=== PATIENT | male | born 1955 | race Caucasian/White ===

== ENCOUNTER 2016-10-18 12:48 | Inpatient (IN) | payer BC ==
[2016-10-18] MEDS ORDERED: FUROSEMIDE 10 MG/ML 10 ML VIAL IV STA (13:02)
[2016-10-18] MEDS ORDERED: ENALAPRILAT 1.25 MG/ML 1 ML VIAL IVP STA (13:02)
[2016-10-18] MEDS ORDERED: FUROSEMIDE 10 MG/ML 4 ML VIAL IV STA (13:03)
[2016-10-18] MEDS ORDERED: NITROGLYCERIN SL TABS 0.4 MG TAB SUBLINGUAL PRN (13:03)
[2016-10-18] MEDS ORDERED: NITROGLYCERIN OINT 1 INCH/GM PACKET TOPICAL STA (13:03)
--- NOTE | 2016-10-18 13:08 | ED ---
General Adult HPI - General Chief complaint: Shortness of Breath Stated complaint: CATRACHITO Time Seen by Provider: 10/18/16 12:56 Source: patient, family, RN notes reviewed Mode of arrival: wheelchair Limitations: physical limitation - History of Present Illness Initial comments: Patient is a pleasant 61-year-old male presenting to the emergency Department with difficulty breathing. Onset was just an hour ago. Patient denies any chest discomfort. Patient feels short of breath. No cough. Patient has had similar symptoms previously associated with congestive heart failure however not this sudden onset. Patient states legs are no more swollen than normal. no fevers. - Related Data Allergies Allergy/AdvReac Type Severity Reaction Status Date / Time No Known Allergies Allergy Verified 10/18/16 12:54 Review of Systems ROS Statement: Those systems with pertinent positive or pertinent negative responses have been documented in the HPI. ROS Other: All systems not noted in ROS Statement are negative. Constitutional: Denies: fever, chills Eyes: Denies: eye pain ENT: Denies: ear pain Respiratory: Reports: dyspnea Cardiovascular: Denies: chest pain Endocrine: Denies: polydipsia Gastrointestinal: Denies: abdominal pain Genitourinary: Denies: dysuria Musculoskeletal: Denies: back pain Skin: Denies: rash Neurological: Denies: headache Past Medical History Past Medical History: Diabetes Mellitus, Hyperlipidemia, Hypertension History of Any Multi-Drug Resistant Organisms: None Reported Past Surgical History: No Surgical Hx Reported Past Psychological History: No Psychological Hx Reported Smoking Status: Current some day smoker Past Alcohol Use History: None Reported Past Drug Use History: Unable to Obtain General Exam Limitations: physical limitation General appearance: alert, in distress, obese Head exam: Present: atraumatic Eye exam: Present: normal appearance, PERRL ENT exam: Present: normal oropharynx Neck exam: Present: normal inspection Respiratory exam: Present: respiratory distress, accessory muscle use, decreased breath sounds Cardiovascular Exam: Present: tachycardia GI/Abdominal exam: Present: soft. Absent: tenderness Extremities exam: Present: pedal edema. Absent: calf tenderness Neurological exam: Present: alert Psychiatric exam: Present: normal affect, normal mood Skin exam: Absent: rash Course Vital Signs 10/18/16 10/18/16 10/18/16 12:54 12:59 13:22 Pulse Rate 100 101 H 101 H Respiratory 36 H 36 H 22 Rate Blood Pressure 163/135 218/101 O2 Sat by Pulse 66 L 88 L 87 L Oximetry 10/18/16 10/18/16 10/18/16 13:32 13:45 14:06 Pulse Rate 100 97 95 Respiratory 22 22 22 Rate Blood Pressure 189/79 171/79 165/84 O2 Sat by Pulse 85 L 98 98 Oximetry - Reevaluation(s) Reevaluation #1: 10/18/16 13:21 Patient reevaluated and slightly improved with short-term BiPAP. Patient became nauseated and had to take the mask off. Patient provided Zofran and we attempted BiPAP. 10/18/16 14:34 Patient again reexamined and significantly improved. Patient resting comfortably on BiPAP. Patient and family are updated on results and plan. Case was discussed in detail with Dr. Sotelo who will admit for Dr. clinton. Case also discussed in detail with Dr. Gomez who will consult. EKG Findings - EKG Comments: EKG Findings:: Sinus rhythm at 100. LA 196. QRS 112. QT 352. QTC 454. Right axis. Normal QRS. Normal ST-T. Medical Decision Making - Lab Data Result diagrams: 10/18/16 13:07 10/18/16 13:07 Lab Results 10/18/16 10/18/16 10/18/16 Range/Units 13:07 13:07 13:07 WBC 22.0 H (3.8-10.6) k/uL RBC 5.56 (4.30-5.90) m/uL Hgb 16.3 (13.0-17.5) gm/dL Hct 49.3 (39.0-53.0) % MCV 88.6 (80.0-100.0) fL MCH 29.4 (25.0-35.0) pg MCHC 33.2 (31.0-37.0) g/dL RDW 14.6 (11.5-15.5) % Plt Count 291 (150-450) k/uL Neutrophils % 85 % Lymphocytes % 8 % Monocytes % 3 % Eosinophils % 2 % Basophils % 0 % Neutrophils # 18.7 H (1.3-7.7) k/uL Lymphocytes # 1.8 (1.0-4.8) k/uL Monocytes # 0.8 (0-1.0) k/uL Eosinophils # 0.5 (0-0.7) k/uL Basophils # 0.1 (0-0.2) k/uL PT (9.0-12.0) sec INR (<1.1) APTT (22.0-30.0) sec Sodium 145 (137-145) mmol/L Potassium 4.0 (3.5-5.1) mmol/L Chloride 101 (98-107) mmol/L Carbon Dioxide 29 (22-30) mmol/L Anion Gap 15 mmol/L BUN 17 (9-20) mg/dL Creatinine 0.97 (0.66-1.25) mg/dL Est GFR (MDRD) Af Amer >60 (>60 ml/min/1.73 sqM) Est GFR (MDRD) Non-Af >60 (>60 ml/min/1.73 sqM) Glucose 90 (74-99) mg/dL Calcium 9.7 (8.4-10.2) mg/dL Total Bilirubin 0.9 (0.2-1.3) mg/dL AST 18 (17-59) U/L ALT 30 (21-72) U/L Alkaline Phosphatase 85 (38-126) U/L Total Creatine Kinase 171 H (55-170) U/L CK-MB (CK-2) 2.7 H* (0.0-2.4) ng/mL CK-MB (CK-2) Rel Index 1.6 Troponin I 0.023 (0.000-0.034) ng/mL NT-Pro-B Natriuret Pep pg/mL Total Protein 8.2 (6.3-8.2) g/dL Albumin 4.8 (3.5-5.0) g/dL 10/18/16 10/18/16 Range/Units 13:07 13:07 WBC (3.8-10.6) k/uL RBC (4.30-5.90) m/uL Hgb (13.0-17.5) gm/dL Hct (39.0-53.0) % MCV (80.0-100.0) fL MCH (25.0-35.0) pg MCHC (31.0-37.0) g/dL RDW (11.5-15.5) % Plt Count (150-450) k/uL Neutrophils % % Lymphocytes % % Monocytes % % Eosinophils % % Basophils % % Neutrophils # (1.3-7.7) k/uL Lymphocytes # (1.0-4.8) k/uL Monocytes # (0-1.0) k/uL Eosinophils # (0-0.7) k/uL Basophils # (0-0.2) k/uL PT 10.4 (9.0-12.0) sec INR 1.0 (<1.1) APTT 23.4 (22.0-30.0) sec Sodium (137-145) mmol/L Potassium (3.5-5.1) mmol/L Chloride (98-107) mmol/L Carbon Dioxide (22-30) mmol/L Anion Gap mmol/L BUN (9-20) mg/dL Creatinine (0.66-1.25) mg/dL Est GFR (MDRD) Af Amer (>60 ml/min/1.73 sqM) Est GFR (MDRD) Non-Af (>60 ml/min/1.73 sqM) Glucose (74-99) mg/dL Calcium (8.4-10.2) mg/dL Total Bilirubin (0.2-1.3) mg/dL AST (17-59) U/L ALT (21-72) U/L Alkaline Phosphatase (38-126) U/L Total Creatine Kinase (55-170) U/L CK-MB (CK-2) (0.0-2.4) ng/mL CK-MB (CK-2) Rel Index Troponin I (0.000-0.034) ng/mL NT-Pro-B Natriuret Pep 554 pg/mL Total Protein (6.3-8.2) g/dL Albumin (3.5-5.0) g/dL - Radiology Data Radiology results: image reviewed (Chest x-ray shows cardiomegaly and interstitial prominence.) Critical Care Time Critical Care Time: Yes Total Critical Care Time: 44 Disposition Clinical Impression: Flash pulmonary edema, Acute respiratory failure Disposition: ADMITTED IP TO THIS [facility] Condition: Serious Referrals: Anna Rizvi MD [Primary Care Provider] - 1-2 days Time of Disposition: 14:34
[2016-10-18] MEDS ORDERED: ONDANSETRON 4 MG/2 ML VIAL IVP STA ×2 (13:21→15:19)
[2016-10-18 13:22] LABS: Basophils # (A) 0.1 k/uL (0-0.2); Basophils % (A) 0 %; CH 29.5; CHCM 33.4; Eosinophils # (A) 0.5 k/uL (0-0.7); Eosinophils % (A) 2 %; HCT 49.3 % (39.0-53.0); HDW 2.65; HGB 16.3 gm/dL (13.0-17.5); Luc # (Auto) 0.16; Luc % (Auto) 1; Lymphocytes # (A) 1.8 k/uL (1.0-4.8); Lymphocytes % (A) 8 %; MCH 29.4 pg (25.0-35.0); MCHC 33.2 g/dL (31.0-37.0); MCV 88.6 fL (80.0-100.0); Mean Platelet Volume 6.2; Monocytes # (A) 0.8 k/uL (0-1.0); Monocytes % (A) 3 %; Neutrophils # (A) 18.7 k/uL (1.3-7.7); Neutrophils % (A) 85 %; RBC 5.56 m/uL (4.30-5.90); RDW 14.6 % (11.5-15.5); WBC (Perox) 21.28
[2016-10-18] MEDS: NITROGLYCERIN SL TABS 0.4 MG TAB SUBLINGUAL STA ×2 (13:23→13:33)
--- NOTE | 2016-10-18 13:24 | XR ---
EXAMINATION TYPE: XR chest 1V portable DATE OF EXAM: 10/18/2016 1:15 PM COMPARISON: Prior chest x-ray 17 October 2012 HISTORY: Dyspnea TECHNIQUE: Single frontal view of the chest is obtained. FINDINGS: The heart is enlarged. Central vascularity and interstitium are prominent. There are overl norma cardiac leads. No pneumothorax or pleural effusion is identified. IMPRESSION: Correlate for pulmonary venous hypertension and interstitial edema. Follow-up recommende d.
[2016-10-18 13:33] LABS: ALT 30 U/L (21-72); AST 18 U/L (17-59); Alkaline Phosphatase 85 U/L (38-126); Anion Gap 15 mmol/L; Blood Urea Nitrogen 17 mg/dL (9-20); Calcium 9.7 mg/dL (8.4-10.2); Carbon Dioxide 29 mmol/L (22-30); Chloride 101 mmol/L (98-107); Glucose 90 mg/dL (74-99); Non-African American GFR(MDRD) >60 (>60 ml/min/1.73 sqM); Sodium 145 mmol/L (137-145); Total Bilirubin 0.9 mg/dL (0.2-1.3); Total Protein 8.2 g/dL (6.3-8.2)
[2016-10-18 13:34] LABS: Partial Thromboplastin Time 23.4 sec (22.0-30.0); Prothrombin Time 10.4 sec (9.0-12.0)
[2016-10-18 13:57] LABS: Troponin I 0.023 ng/mL (0.000-0.034)
[2016-10-18 14:15] LABS: Creatine Kinase MB 2.7 ng/mL (0.0-2.4)
[2016-10-18] MEDS ORDERED: ASPIRIN 325 MG TAB PO STA (14:35)
[2016-10-18] MEDS ORDERED: LEVOFLOXACIN 750MG-D5W PMX 750 MG in DEXTROSE/WATER 1 150ML.BAG IVPB STA (15:06)
[2016-10-18] MEDS: ACETAMINOPHEN TAB 500 MG TAB PO STA ×2 (15:13→15:24)
[2016-10-18 15:22] LABS: Appearance,Urine Clear (Clear); Bilirubin,Urine Negative (Negative); Glucose,Urine (UA) Negative (Negative); Ketones,Urine Negative (Negative); Leukocyte Esterase,Urine Negative (Negative); Nitrite,Urine Negative (Negative); Protein,Urine Negative (Negative); Specific Gravity,Urine 1.004 (1.001-1.035); UA Billing (MACRO vs. MICRO) CHEM; Urobilinogen,Urine <2.0 mg/dL (<2.0)
[2016-10-18] MEDS ORDERED: ACETAMINOPHEN IV (For NPO) 1,000 MG in EMPTY BAG 1 BAG IVPB STA (15:22)
[2016-10-18 16:10] LABS: ABG Base Excess 0.5 mmol/L; ABG HCO3 23 mmol/L (21-25); ABG PCO2 31 mmHg (35-45); ABG PO2 96 mmHg (83-108); ABG TCO2 24 mmol/L (19-24)
[2016-10-18 16:27] LABS: Glucose,Whole Blood 114 mg/dL (75-99)
[2016-10-18] MEDS ORDERED: LORazepam 2 MG/ML SYRINGE IV PRN (16:33)
[2016-10-18] MEDS ORDERED: IV VANCOMYCIN PER PHARMACY 1 EACH MISC MISCELLANE PRN (19:49)
[2016-10-18] MEDS ORDERED: SODIUM CHLORIDE 0.9% 500 ML IV ONE (19:50)
[2016-10-18] MEDS: PIPERACILLIN-TAZOBACTAM 3.375 GM in DEXTROSE/WATER 1 50ML.BAG IVPB SCH (20:00)
[2016-10-18] MEDS: ENALAPRILAT 1.25 MG/ML 1 ML VIAL IVP SCH ×2 (20:15→22:08)
[2016-10-18] MEDS: NITROGLYCERIN OINT 1 INCH/GM PACKET TOPICAL SCH (20:16)
[2016-10-18 21:09] LABS: Glucose,Whole Blood 106 mg/dL (75-99)
[2016-10-18] MEDS: FUROSEMIDE 10 MG/ML 4 ML VIAL IV SCH (22:08)
[2016-10-18] MEDS: VANCOMYCIN 2,250 MG in SODIUM CHLORIDE 0.9% 500 ML IVPB SCH (22:10)
[2016-10-18] MEDS ORDERED: NALOXONE 0.4 MG/ML 1 ML VIAL IV PRN (23:01)
[2016-10-18] MEDS ORDERED: FUROSEMIDE 10 MG/ML 2 ML VIAL IV ONE (23:06)
[2016-10-18] MEDS ORDERED: METOPROLOL TARTRATE 5 MG/5 ML VIAL IVP STA (23:31)
[2016-10-18] MEDS: SODIUM CHLORIDE 0.9% 1,000 ML IV SCH (23:40)
[2016-10-18] MEDS ORDERED: DILTIAZEM 125 MG in SODIUM CHLORIDE 0.9% 100 ML IV SCH (23:45)
[2016-10-18 23:55] LABS: CH 29.7; CHCM 34.1; HCT 45.5 % (39.0-53.0); HDW 2.66; HGB 15.5 gm/dL (13.0-17.5); Immature Gran Flag Moderate; MCH 29.9 pg (25.0-35.0); MCHC 34.2 g/dL (31.0-37.0); MCV 87.5 fL (80.0-100.0); Mean Platelet Volume 6.6; WBC (Perox) 29.93
[2016-10-18 23:57] LABS: WBC 29.8 k/uL (3.8-10.6)
[2016-10-19 00:02] LABS: INR 1.3 (<1.1); Partial Thromboplastin Time 25.6 sec (22.0-30.0); Prothrombin Time 12.5 sec (9.0-12.0)
[2016-10-19 00:15] LABS: ALT 28 U/L (21-72); AST 21 U/L (17-59); Alkaline Phosphatase 58 U/L (38-126); Anion Gap 15 mmol/L; Blood Urea Nitrogen 18 mg/dL (9-20); Carbon Dioxide 26 mmol/L (22-30); Chloride 100 mmol/L (98-107); Glucose 126 mg/dL (74-99); Non-African American GFR(MDRD) >60 (>60 ml/min/1.73 sqM); Potassium 3.4 mmol/L (3.5-5.1); Sodium 141 mmol/L (137-145); Total Bilirubin 1.2 mg/dL (0.2-1.3); Total Protein 6.5 g/dL (6.3-8.2)
[2016-10-19] MEDS: HEPARIN SODIUM,PORCINE 5,000 UNIT/ML 1 ML VIAL SQ SCH ×4 (00:25→23:33)
[2016-10-19] MEDS: NITROGLYCERIN OINT 1 INCH/GM PACKET TOPICAL SCH ×6 (00:27→20:40)
[2016-10-19 00:31] LABS: Add Differential Manual Differential
[2016-10-19 00:32] LABS: Manual Review Performed; Nucleated Red Blood Cells 0 /100 WBC (0-0); Total Cells Counted 100
[2016-10-19] MEDS: ACETAMINOPHEN IV (For NPO) 1,000 MG in EMPTY BAG 1 BAG IVPB PRN ×2 (00:34→17:31)
[2016-10-19] MEDS ORDERED: Potassium Replacement Protocol 1 EACH MISC MISCELLANE PRN ×3 (00:55→21:11)
[2016-10-19] MEDS: POTASSIUM CHLORIDE ER 20 MEQ TAB.ER PO SCH ×6 (01:20→23:32)
[2016-10-19] MEDS: PIPERACILLIN-TAZOBACTAM 3.375 GM in DEXTROSE/WATER 1 50ML.BAG IVPB SCH ×3 (01:22→16:56)
[2016-10-19] MEDS: ENALAPRILAT 1.25 MG/ML 1 ML VIAL IVP SCH ×2 (03:49→10:09)
[2016-10-19] MEDS: IBUPROFEN 800 MG TAB PO PRN (03:53)
[2016-10-19 04:58] LABS: Basophils % (A) 0 %; CH 29.6; Eosinophils # (A) 0.2 k/uL (0-0.7); Eosinophils % (A) 1 %; HCT 43.8 % (39.0-53.0); HDW 2.61; HGB 14.6 gm/dL (13.0-17.5); Luc % (Auto) 0; Lymphocytes # (A) 0.6 k/uL (1.0-4.8); Lymphocytes % (A) 2 %; MCH 29.2 pg (25.0-35.0); MCHC 33.4 g/dL (31.0-37.0); MCV 87.6 fL (80.0-100.0); Mean Platelet Volume 6.3; Monocytes # (A) 0.6 k/uL (0-1.0); Monocytes % (A) 2 %; Neutrophils # (A) 24.3 k/uL (1.3-7.7); Neutrophils % (A) 94 %; RDW 14.9 % (11.5-15.5)
[2016-10-19 05:04] LABS: WBC 25.9 k/uL (3.8-10.6)
[2016-10-19 05:08] LABS: Anion Gap 15 mmol/L; Blood Urea Nitrogen 20 mg/dL (9-20); Calcium 8.4 mg/dL (8.4-10.2); Carbon Dioxide 26 mmol/L (22-30); Chloride 98 mmol/L (98-107); Glucose 167 mg/dL (74-99); Magnesium 1.2 mg/dL (1.6-2.3); Non-African American GFR(MDRD) >60 (>60 ml/min/1.73 sqM); Phosphorous 4.3 mg/dL (2.5-4.5); Potassium 3.4 mmol/L (3.5-5.1); Sodium 139 mmol/L (137-145)
[2016-10-19] MEDS ORDERED: Magnesium Replacement Protocol 1 EACH MISC MISCELLANE PRN (05:37)
[2016-10-19] MEDS: MAGNESIUM SULFATE-D5W PMX 1 GM in DEXTROSE/WATER 1 100ML.BAG IVPB SCH ×3 (06:35→10:09)
[2016-10-19] MEDS: FUROSEMIDE 10 MG/ML 4 ML VIAL IV SCH ×3 (06:36→22:12)
[2016-10-19 07:20] LABS: Glucose,Whole Blood 190 mg/dL (75-99)
[2016-10-19] MEDS: IPRATROPIUM-ALBUTEROL 3 ML NEB INHALATION PRN ×4 (07:34→20:59)
[2016-10-19] MEDS: ASPIRIN 325 MG TAB PO SCH (08:00)
[2016-10-19] MEDS: VANCOMYCIN 2,250 MG in SODIUM CHLORIDE 0.9% 500 ML IVPB SCH (08:00)
[2016-10-19] MEDS: INSULIN LISPRO (humaLOG) 300 UNIT/3 ML VIAL SQ SCH ×6 (08:07→20:23)
[2016-10-19] MEDS ORDERED: PANTOPRAZOLE 40 MG/10 ML VIAL IV SCH (09:00)
--- NOTE | 2016-10-19 09:08 | XR ---
EXAMINATION TYPE: XR chest 1V DATE OF EXAM: 10/19/2016 6:25 AM COMPARISON: Prior chest x-ray 18 October 2016 HISTORY: Shortness of breath TECHNIQUE: Single frontal view of the chest is obtained. FINDINGS: There are overlying cardiac leads. Heart remains enlarged. There is improvement in aeratio n. No evident pneumothorax or sizable effusion. IMPRESSION: Improvement in patient's finding status.
[2016-10-19] MEDS: INSULIN GLARGINE 100 UNIT/ML 10 ML VIAL SQ SCH (10:09)
--- NOTE | 2016-10-19 11:46 | P.CNPUL ---
History of Present Illness Consult date: 10/19/16 Requesting physician: Kaye Smith Reason for consult: other (Acute pulmonary edema) Chief complaint: Shortness of breath and chills History of present illness: This is a 61-year-old white male with history of multiple medical problems including obstructive sleep apnea syndrome, valvular heart disease and he is usually followed by a design technology teacher out of [facility]. History of diabetes, hyperlipidemia, and obesity. Patient had previous remote history of congestive heart failure related to his valvular heart disease, however according to the patient's surgery was never an option for him as he was told by the design technology teacher. At any rate patient has chronic shortness of breath on exertion and he almost felt it is related to his obesity, deconditioning, and his underlying cardiomyopathy. Patient was supposed to go to dinner with his last night, and as he walked into the restaurant he started having constant shakes, possibly chills. He also developed shortness of breath, to the point it became so severe and he was brought into the ER. Upon arrival the chest x-ray showed evidence of pulmonary edema. Patient was also noted to have leukocytosis with WBC count as high as 29.8 he was also acidotic with anion gap of 15. Lactic acid was also noted to be 2.0. Troponins were also elevated 0.38 and 0.41 [id number]. ProBNP level was almost 3000. Patient was noted to be in moderate respiratory distress, and his chest x-ray clearly showed evidence of pulmonary edema, possibility of underlying left lower lobe pneumonia is not entirely ruled out, patient did receive initially a fluid bolus , but after reviewing the chest x-ray, I felt strongly that the findings are findings of congestive heart failure, patient was given diuretics. This morning his chest x-ray is significantly improved. Patient is feeling much better. His leukocytosis is improving, but continues to have WBC count of 25.9 compared to 29.8 on admission, his preliminary blood culture is positive showing gram-positive cocci in chains and clusters. Patient denies any previous history of endocarditis, no history of IV drug abuse, and no recent surgical procedures. Upon admission, patient was placed empirically on Levaquin and Zosyn and vancomycin. Review of Systems Constitutional: Chills, but no documented fever, no weight loss, no weakness. HEENT: Negative no blurred vision. No sore throat. No ear aches. Chest: Refer to HPI mostly symptoms of shortness of breath upon admission which has resolved over the last 12 hours. Cardiac: Shortness of breath and symptoms of pulmonary edema on presentation, known history of valvular heart disease but the patient could not elaborate further on the exact nature of his valvular heart disease. GI: Denies nausea vomiting abdominal pain melena or hematemesis. Genitourinary: No dysuria frequency or urgency. Hematologic: Negative Neurologic: No headache blurred vision or dizziness. Psychiatric: No history of anxiety or depression. No history of suicidal or homicidal thoughts. Endocrine: History of diabetes well-controlled. Patient is also known to have history of obesity and obstructive sleep apnea syndrome. Past Medical History Past Medical History: COPD, Diabetes Mellitus, Hyperlipidemia, Hypertension History of Any Multi-Drug Resistant Organisms: None Reported Past Surgical History: Appendectomy, Tonsillectomy Past Anesthesia/Blood Transfusion Reactions: No Reported Reaction Past Psychological History: No Psychological Hx Reported Smoking Status: Former smoker Past Alcohol Use History: None Reported Additional Past Alcohol Use History / Comment(s): cigar once or twice a year Past Drug Use History: None Reported Medications and Allergies Home Medications Medication Instructions Recorded Confirmed Type Aspirin EC [Ecotrin] 325 mg PO DAILY 10/18/16 10/18/16 History Atorvastatin [Lipitor] 40 mg PO DAILY 10/18/16 10/18/16 History Carvedilol [Coreg] 25 mg PO BID 10/18/16 10/18/16 History Clopidogrel Bisulfate [Plavix] 75 mg PO DAILY 10/18/16 10/18/16 History Furosemide [Lasix] 40 mg PO DAILY 10/18/16 10/18/16 History Insulin Glargine,Hum.rec.anlog 50 unit SQ HS 10/18/16 10/18/16 History [Lantus Solostar] Insulin Glargine,Hum.rec.anlog 55 unit SQ QAM 10/18/16 10/18/16 History [Lantus Solostar] Insulin Lispro [humaLOG Kwikpen] 20 unit SQ AC-TID 10/18/16 10/18/16 History Insulin Lispro [humaLOG Kwikpen] See Protocol SQ AC-TID 10/18/16 10/18/16 History Lisinopril-Hctz 20-12.5 mg 1 tab PO DAILY 10/18/16 10/18/16 History [Zestoretic 20-12.5] Loratadine [Claritin] 10 mg PO DAILY 10/18/16 10/18/16 History Potassium Chloride ER [K-Dur 20] 20 meq PO DAILY 10/18/16 10/18/16 History metFORMIN HCL 1,000 mg PO AC-BID 10/18/16 10/18/16 History Allergies Allergy/AdvReac Type Severity Reaction Status Date / Time No Known Allergies Allergy Verified 10/18/16 14:36 Physical Exam Vitals: Vital Signs Temp Pulse Pulse Resp BP BP Pulse Ox 10/19/16 11:29 87 10/19/16 11:22 92 10/19/16 11:18 81 10/19/16 11:00 68 22 120/65 95 10/19/16 10:00 65 18 117/70 96 10/19/16 09:00 65 13 106/56 97 10/19/16 08:00 98.3 F 64 17 105/66 98 10/19/16 07:50 75 10/19/16 07:36 76 20 10/19/16 07:00 63 21 115/55 98 10/19/16 06:30 65 18 111/56 99 10/19/16 06:00 66 18 100/58 97 10/19/16 05:30 68 21 101/56 99 10/19/16 05:00 98.6 F 70 18 112/62 98 10/19/16 04:30 70 20 108/64 98 10/19/16 04:00 100.3 F H 71 18 145/81 100 10/19/16 03:30 99.9 F H 72 20 114/66 98 10/19/16 03:00 68 20 103/57 98 10/19/16 02:30 72 20 117/67 98 10/19/16 02:00 99.7 F H 71 18 131/68 97 10/19/16 01:30 74 22 128/72 98 10/19/16 01:00 101.8 F H 77 21 150/81 98 10/19/16 00:45 78 18 168/84 97 10/19/16 00:30 102.1 F H 78 21 167/83 97 10/19/16 00:15 77 23 159/81 96 10/19/16 00:00 101.8 F H 78 22 149/79 96 10/18/16 23:45 75 19 140/77 95 10/18/16 23:30 165 H 24 107/74 96 10/18/16 23:15 90 27 H 156/82 97 10/18/16 23:00 102.1 F H 85 24 162/81 97 10/18/16 22:45 85 19 162/81 97 10/18/16 22:30 81 25 H 153/80 97 10/18/16 22:15 89 26 H 153/80 97 10/18/16 22:00 101.2 F H 90 26 H 161/86 97 10/18/16 21:45 90 22 161/86 96 10/18/16 21:30 90 23 139/68 97 10/18/16 21:15 100.9 F H 91 27 H 139/68 96 10/18/16 19:19 16 L 16 186/87 96 10/18/16 16:32 94 L 10/18/16 16:00 100.6 F H 95 24 186/87 96 10/18/16 14:59 101.2 F H 92 18 164/88 96 Intake and Output 10/18/16 10/19/16 10/19/16 22:59 06:59 14:59 Intake Total 659.662 9610 Output Total 600 2270 645 Balance -600 -1284.416 355 Intake: Intake, IV Titration 317.117 4576 Amount ACETAMINOPHEN IV (For NPO 100 ) 1,000 mg In Empty Bag 1 bag @ 400 mls/hr IVPB Q6HR PRN Rx#:[id number] Diltiazem 125 mg In 34.584 Sodium Chloride 0.9% 100 ml @ 10 MG/HR 10 mls/hr IV .[id number] DOUGLAS Rx#: [id number] Magnesium Sulfate-D5w Pmx 200 1 gm In Dextrose/Water 1 100ml.bag @ 100 mls/hr IVPB Q1H DOUGLAS Rx#: [id number] Piperacillin-Tazobactam 3 50.0 50 .375 gm In Dextrose/Water 1 50ml.bag @ 12.5 mls/hr IVPB Q8HR DOUGLAS Rx#: [id number] Sodium Chloride 0.9% 1, 300 250 000 ml @ 50 mls/hr IV . Q20H DOUGLAS Rx#:[id number] Vancomycin 2,250 mg In 501 500 Sodium Chloride 0.9% 500 ml @ 167 mls/hr IVPB Q12HR DOUGLAS Rx#:[id number] Output: Urine 600 2270 645 Other: Voiding Method Indwelling Catheter Weight 163.293 kg 164.5 kg Physical Exam: Revealed a 61-year-old white male in no distress significantly improved over the last 12 hours. HEENT:[Neck is supple.] [No neck masses.] [No thyromegaly.] [No JVD.] Narrow oropharynx, short obese neck is noted. Chest: [Minimal crackles at the bases mostly at the left base..] Cardiac Exam: [Distant S1 and S2, no S3 gallop, 2/6 systolic murmur throughout the precordium. Abdomen: [Obese, Soft, nontender, no megaly, no rebound, no guarding, normal bowel sounds.] Extremities: [No clubbing, bipedal edema is noted, however the right lower extremity seems to be a bit more swollen and edematous compared to the left lower extremity, areas of cellulitis suspected in the right lower extremity also. Neurological Exam: [No focal neurologic deficit.] Results - Laboratory Findings CBC and BMP: 10/19/16 04:34 10/19/16 04:34 ABG ABG pH 7.50 (7.35-7.45) H 10/18/16 16:01 ABG pCO2 31 mmHg (35-45) L 10/18/16 16:01 ABG pO2 96 mmHg (83-108) 10/18/16 16:01 ABG O2 Saturation 98.0 % (94-97) H 10/18/16 16:01 PT/INR, D-dimer PT 12.5 sec (9.0-12.0) H 10/18/16 23:35 INR 1.3 (<1.1) 10/18/16 23:35 Abnormal lab findings: Abnormal Labs 10/18/16 10/18/16 10/18/16 16:01 16:07 16:59 WBC Neutrophils # Neutrophils # (Manual) Lymphocytes # Lymphocytes # (Manual) PT ABG pH 7.50 H ABG pCO2 31 L ABG O2 Saturation 98.0 H Potassium Glucose POC Glucose (mg/dL) 114 H Plasma Lactic Acid Alan 2.3 H* Magnesium Troponin I 04/15/17 04/15/17 04/15/17 20:35 21:08 23:35 WBC Neutrophils # Neutrophils # (Manual) Lymphocytes # Lymphocytes # (Manual) PT ABG pH ABG pCO2 ABG O2 Saturation Potassium Glucose POC Glucose (mg/dL) 106 H Plasma Lactic Acid Alan Magnesium Troponin I 0.382 H* 0.413 H* 10/18/16 10/18/16 10/18/16 23:35 23:35 23:35 WBC 29.8 H* Neutrophils # Neutrophils # (Manual) 28.3 H Lymphocytes # Lymphocytes # (Manual) 0.6 L PT 12.5 H ABG pH ABG pCO2 ABG O2 Saturation Potassium 3.4 L Glucose 126 H POC Glucose (mg/dL) Plasma Lactic Acid Alan Magnesium Troponin I 10/19/16 10/19/16 10/19/16 04:34 04:34 07:18 WBC 25.9 H* Neutrophils # 24.3 H Neutrophils # (Manual) Lymphocytes # 0.6 L Lymphocytes # (Manual) PT ABG pH ABG pCO2 ABG O2 Saturation Potassium 3.4 L Glucose 167 H POC Glucose (mg/dL) 190 H Plasma Lactic Acid Alan Magnesium 1.2 L Troponin I - Diagnostic Findings Chest x-ray: image reviewed (Initial x-ray on admission showed evidence of pulmonary edema. However follow-up chest x-ray this morning showed significant improvement minimal hazy opacity noted in the left lower lobe.) Assessment and Plan Plan: Impression: 1 acute pulmonary edema, and acute hypoxic respiratory failure requiring BiPAP on admission most likely secondary to underlying cardiomyopathy and valvular heart disease. 2 acute sepsis with bacteremia, exact source is not clear at this point, however potential sources could be lung or cellulitis of the right lower extremity. Final culture is pending in the meantime the patient is well covered with Levaquin and Zosyn and vancomycin. 3 possible endocarditis, patient will have an echocardiogram, and if he continues to have positive blood cultures he will need to have a LARISA. 4 history of multiple comorbidities including obstructive sleep apnea syndrome, morbid obesity, type 2 diabetes, hypertension, hyperlipidemia, Recommendation: Continue present course of diuretics, empiric antibiotics, bronchodilators, BiPAP at bedside, repeat blood cultures, check echocardiogram and strongly consider LARISA. Patient is yet to be seen by cardiology on consultation today. We will keep the patient in the intensive care unit, and we 'll continue to follow. Time with Patient: Greater than 30
[2016-10-19 11:59] LABS: Hemoglobin A1C 8.2 % (4.2-6.1)
[2016-10-19 12:08] LABS: Glucose,Whole Blood 305 mg/dL (75-99)
--- NOTE | 2016-10-19 12:34 | P.CRDCN ---
History of Present Illness Chief complaint: symptomatic svt, fever History of present illness: 61-year-old obese male who presented to the emergency room with sudden onset of shortness of breath and being very dizzy and feeling very poorly. His legs were swollen chronically He may have felt some fluttering in the chest but is not sure. He felt weak and lightheaded and felt as if he was shaking His twelve-lead ECG showed supraventricular tachycardia at greater than 160 beats a minute, narrow QRS and he was treated with IV medications for this possibly IV Cardizem with sudden a proper termination. The ECG is not scanned in as yet but is in his paper chart Upon admission he was complaining of shakes and possible chills and was extremely short of breath and was considered to be in pulmonary edema. White count was elevated to 29.8 thousand, pulmonary blood cultures show gram- positive cocci in chains and clusters Past history of diabetes, morbid obesity, dyslipidemia, mild coronary artery disease documented by coronary angiography and valvular heart disease with possible cardiomyopathy Review of systems: No fever chills or rigors, no cough, phlegm or expectoration , no nausea, vomiting or diarrhea, no hematuria, dysuria, no musculoskeletal complaints, no strokes or seizures, no skin lesions. He felt shaky and very short of breath Medications are reviewed and are documented in the chart NO KNOWN DRUG ALLERGIES Labs are reviewed Preliminary blood cultures show gram-positive cocci in chains Elevated white count of 29.8 thousand followed by 25.9 thousand, normal hemoglobin elevated neutrophil count Normal electrolytes Troponins, normal TSH normal cortisol Impression Symptomatic supraventricular tachycardia Elevated white count and a febrile state of 101.8F and pulmonary blood cultures are positive History of cardio myopathy and valvular heart disease Adult-onset diabetes Hypertension Dyslipidemia Suggest Records from his veterinary surgeon, his coronary angiogram that was done about a year back, 2-D echo and Doppler study Workup for infection 2-D echo and Doppler study in hospital I did discuss SVT ablation with him but I would hold off until the infection issue is completely resolved and the final blood cultures are available I will review his records and then speak to the patient Once his infection issues are resolved he should have an SVT ablation because he was extremely symptomatic from this. It is quite likely that I may have to use general anesthesia for this condition and therefore I would like to see his LV function and review his old records for his veterinary surgeon Past Medical History Past Medical History: COPD, Diabetes Mellitus, Hyperlipidemia, Hypertension History of Any Multi-Drug Resistant Organisms: None Reported Past Surgical History: Appendectomy, Tonsillectomy Past Anesthesia/Blood Transfusion Reactions: No Reported Reaction Past Psychological History: No Psychological Hx Reported Smoking Status: Former smoker Past Alcohol Use History: None Reported Additional Past Alcohol Use History / Comment(s): cigar once or twice a year Past Drug Use History: None Reported Medications and Allergies Home Medications Medication Instructions Recorded Confirmed Type Aspirin EC [Ecotrin] 325 mg PO DAILY 10/18/16 10/18/16 History Atorvastatin [Lipitor] 40 mg PO DAILY 10/18/16 10/18/16 History Carvedilol [Coreg] 25 mg PO BID 10/18/16 10/18/16 History Clopidogrel Bisulfate [Plavix] 75 mg PO DAILY 10/18/16 10/18/16 History Furosemide [Lasix] 40 mg PO DAILY 10/18/16 10/18/16 History Insulin Glargine,Hum.rec.anlog 50 unit SQ HS 10/18/16 10/18/16 History [Lantus Solostar] Insulin Glargine,Hum.rec.anlog 55 unit SQ QAM 10/18/16 10/18/16 History [Lantus Solostar] Insulin Lispro [humaLOG Kwikpen] 20 unit SQ AC-TID 10/18/16 10/18/16 History Insulin Lispro [humaLOG Kwikpen] See Protocol SQ AC-TID 10/18/16 10/18/16 History Lisinopril-Hctz 20-12.5 mg 1 tab PO DAILY 10/18/16 10/18/16 History [Zestoretic 20-12.5] Loratadine [Claritin] 10 mg PO DAILY 10/18/16 10/18/16 History Potassium Chloride ER [K-Dur 20] 20 meq PO DAILY 10/18/16 10/18/16 History metFORMIN HCL 1,000 mg PO AC-BID 10/18/16 10/18/16 History Allergies Allergy/AdvReac Type Severity Reaction Status Date / Time No Known Allergies Allergy Verified 10/18/16 14:36 Physical Exam Vitals: Vital Signs Temp Pulse Pulse Resp BP BP Pulse Ox 10/19/16 11:29 87 10/19/16 11:22 92 10/19/16 11:18 81 10/19/16 11:00 68 22 120/65 95 10/19/16 10:00 65 18 117/70 96 10/19/16 09:00 65 13 106/56 97 10/19/16 08:00 98.3 F 64 17 105/66 98 10/19/16 07:50 75 10/19/16 07:36 76 20 10/19/16 07:00 63 21 115/55 98 10/19/16 06:30 65 18 111/56 99 10/19/16 06:00 66 18 100/58 97 10/19/16 05:30 68 21 101/56 99 10/19/16 05:00 98.6 F 70 18 112/62 98 10/19/16 04:30 70 20 108/64 98 10/19/16 04:00 100.3 F H 71 18 145/81 100 10/19/16 03:30 99.9 F H 72 20 114/66 98 10/19/16 03:00 68 20 103/57 98 10/19/16 02:30 72 20 117/67 98 10/19/16 02:00 99.7 F H 71 18 131/68 97 10/19/16 01:30 74 22 128/72 98 10/19/16 01:00 101.8 F H 77 21 150/81 98 10/19/16 00:45 78 18 168/84 97 10/19/16 00:30 102.1 F H 78 21 167/83 97 10/19/16 00:15 77 23 159/81 96 10/19/16 00:00 101.8 F H 78 22 149/79 96 10/18/16 23:45 75 19 140/77 95 10/18/16 23:30 165 H 24 107/74 96 10/18/16 23:15 90 27 H 156/82 97 10/18/16 23:00 102.1 F H 85 24 162/81 97 10/18/16 22:45 85 19 162/81 97 10/18/16 22:30 81 25 H 153/80 97 10/18/16 22:15 89 26 H 153/80 97 10/18/16 22:00 101.2 F H 90 26 H 161/86 97 10/18/16 21:45 90 22 161/86 96 10/18/16 21:30 90 23 139/68 97 10/18/16 21:15 100.9 F H 91 27 H 139/68 96 10/18/16 19:19 16 L 16 186/87 96 10/18/16 16:32 94 L 10/18/16 16:00 100.6 F H 95 24 186/87 96 10/18/16 14:59 101.2 F H 92 18 164/88 96 Intake and Output 10/18/16 10/19/16 10/19/16 22:59 06:59 14:59 Intake Total 684.267 8956 Output Total 600 2270 645 Balance -600 -1284.416 355 Intake: Intake, IV Titration 853.420 1514 Amount ACETAMINOPHEN IV (For NPO 100 ) 1,000 mg In Empty Bag 1 bag @ 400 mls/hr IVPB Q6HR PRN Rx#:[id number] Diltiazem 125 mg In 34.584 Sodium Chloride 0.9% 100 ml @ 10 MG/HR 10 mls/hr IV .[id number] [facility] Rx#: [id number] Magnesium Sulfate-D5w Pmx 200 1 gm In Dextrose/Water 1 100ml.bag @ 100 mls/hr IVPB Q1H [facility] Rx#: [id number] Piperacillin-Tazobactam 3 50.0 50 .375 gm In Dextrose/Water 1 50ml.bag @ 12.5 mls/hr IVPB Q8HR [facility] Rx#: [id number] Sodium Chloride 0.9% 1, 300 250 000 ml @ 50 mls/hr IV . Q20H [facility] Rx#:[id number] Vancomycin 2,250 mg In 501 500 Sodium Chloride 0.9% 500 ml @ 167 mls/hr IVPB Q12HR [facility] Rx#:[id number] Output: Urine 600 2270 645 Other: Voiding Method Indwelling Catheter Weight 163.293 kg 164.5 kg Results 10/19/16 04:34 10/19/16 04:34 Cardiac Enzymes 10/18/16 10/18/16 10/18/16 Range/Units 20:35 23:35 23:35 AST 21 (17-59) U/L Troponin I 0.382 H* 0.413 H* (0.000-0.034) ng/mL Coagulation 10/18/16 Range/Units 23:35 PT 12.5 H (9.0-12.0) sec APTT 25.6 (22.0-30.0) sec CBC 10/18/16 10/19/16 Range/Units 23:35 04:34 WBC 29.8 H* 25.9 H* (3.8-10.6) k/uL RBC 5.20 5.00 (4.30-5.90) m/uL Hgb 15.5 14.6 (13.0-17.5) gm/dL Hct 45.5 43.8 (39.0-53.0) % Plt Count 224 191 (150-450) k/uL Comprehensive Metabolic Panel 10/18/16 10/19/16 Range/Units 23:35 04:34 Sodium 141 139 (137-145) mmol/L Potassium 3.4 L 3.4 L (3.5-5.1) mmol/L Chloride 100 98 (98-107) mmol/L Carbon Dioxide 26 26 (22-30) mmol/L BUN 18 20 (9-20) mg/dL Creatinine 1.10 1.20 (0.66-1.25) mg/dL Glucose 126 H 167 H (74-99) mg/dL Calcium 9.0 8.4 (8.4-10.2) mg/dL AST 21 (17-59) U/L ALT 28 (21-72) U/L Alkaline Phosphatase 58 (38-126) U/L Total Protein 6.5 (6.3-8.2) g/dL Albumin 3.8 (3.5-5.0) g/dL Current Medications Generic Name Dose Route Start Last Admin Trade Name Freq PRN Reason Stop Dose Admin Albuterol/Ipratropium 3 ml 10/18/16 23:08 10/19/16 11:14 Duoneb 0.5 Mg-3 Mg/3 Ml Soln INHALATION 3 ml RT-QID PRN Administration Shortness Of Breath Or Wheezing Aspirin 325 mg 10/19/16 09:00 10/19/16 08:00 Aspirin PO 325 mg DAILY [facility] Administration Carvedilol 25 mg 10/19/16 17:30 Coreg PO 10/19/16 20:00 BID-W/MEALS [facility] Furosemide 40 mg 10/18/16 22:00 10/19/16 06:36 Lasix IV 40 mg Q8H [facility] Administration Lisinopril/HCTZ 1 each 10/20/16 09:00 Zestoretic 20-12.5 PO DAILY [facility] Heparin Sodium (Porcine) 5,000 unit 10/19/16 00:00 10/19/16 08:00 Heparin SQ 5,000 unit Q8HR [facility] Administration Levofloxacin 750 mg/ IV 150 mls @ 100 mls/hr 10/19/16 16:00 Solution IVPB Q24H [facility] Piperacillin/Tazobactam/ 50 mls @ 12.5 mls/hr 10/18/16 16:45 10/19/16 08:28 Dextrose 3.375 gm/ IV Solution IVPB 12.5 mls/hr Q8HR [facility] Administration Vancomycin HCl 2,250 mg/ 500 mls @ 167 mls/hr 10/18/16 21:00 10/19/16 08:00 Sodium Chloride IVPB 167 mls/hr Q12HR [facility] Administration Acetaminophen 1,000 mg/ IV 100 mls @ 400 mls/hr 10/18/16 23:01 10/19/16 00:34 Solution IVPB 10/19/16 23:01 400 mls/hr Q6HR PRN Administration Fever Sodium Chloride 1,000 mls @ 50 mls/hr 10/18/16 23:15 10/18/16 23:40 Saline 0.9% IV 50 mls/hr .Q20H [facility] Administration Ibuprofen 800 mg 10/18/16 23:10 10/19/16 03:53 Motrin PO 800 mg QID PRN Administration Fever and/ or Pain Insulin Glargine 15 unit 10/19/16 21:00 Lantus SQ HS [facility] Insulin Glargine 30 unit 10/19/16 09:45 10/19/16 10:09 Lantus SQ 30 unit DAILY [facility] Administration Insulin Human Lispro 0 unit 10/19/16 07:30 10/19/16 08:07 Humalog SQ 5 unit ACHS [facility] Administration Protocol Insulin Human Lispro 10 unit 10/19/16 12:30 Humalog SQ AC-TID [facility] Lorazepam 0.5 mg 10/18/16 16:33 10/18/16 17:17 Ativan IV 0.5 mg Q4HR PRN Administration Anxiety Miscellaneous Information 1 each 10/19/16 05:36 Potassium Per Protocol MISCELLANE DAILY PRN Per Protocol Protocol Miscellaneous Information 1 each 10/19/16 05:37 Magnesium Per Protocol MISCELLANE DAILY PRN Per Protocol Protocol Miscellaneous Information 0 each 10/20/16 08:30 Vancomycin Trough Due MISCELLANE 10/20/16 08:31 DIRECTED ONE Naloxone HCl 0.2 mg 10/18/16 23:01 Narcan IV Q2M PRN Opioid Reversal Nitroglycerin 0.4 mg 10/18/16 13:03 10/18/16 13:04 Nitrostat SUBLINGUAL 0.4 mg ONCE PRN Administration Chest Pain Nitroglycerin 1 inch 10/18/16 18:00 10/19/16 08:02 Nitro-Bid Oint TOPICAL 1 inch QID [facility] Administration Pantoprazole Sodium 40 mg 10/19/16 09:00 10/19/16 08:00 Protonix IV 40 mg DAILY [facility] Administration Sodium Chloride 10 ml 10/18/16 21:00 10/19/16 08:02 Saline Flush IV 10 ml BID [facility] Administration Intake and Output 10/18/16 10/19/16 10/19/16 22:59 06:59 14:59 Intake Total 035.721 8016 Output Total 600 2270 645 Balance -600 -1284.416 355 Intake: Intake, IV Titration 891.869 1481 Amount ACETAMINOPHEN IV (For NPO 100 ) 1,000 mg In Empty Bag 1 bag @ 400 mls/hr IVPB Q6HR PRN Rx#:[id number] Diltiazem 125 mg In 34.584 Sodium Chloride 0.9% 100 ml @ 10 MG/HR 10 mls/hr IV .[id number] [facility] Rx#: [id number] Magnesium Sulfate-D5w Pmx 200 1 gm In Dextrose/Water 1 100ml.bag @ 100 mls/hr IVPB Q1H [facility] Rx#: [id number] Piperacillin-Tazobactam 3 50.0 50 .375 gm In Dextrose/Water 1 50ml.bag @ 12.5 mls/hr IVPB Q8HR [facility] Rx#: [id number] Sodium Chloride 0.9% 1, 300 250 000 ml @ 50 mls/hr IV . Q20H [facility] Rx#:[id number] Vancomycin 2,250 mg In 501 500 Sodium Chloride 0.9% 500 ml @ 167 mls/hr IVPB Q12HR [facility] Rx#:[id number] Output: Urine 600 2270 645 Other: Voiding Method Indwelling Catheter Weight 163.293 kg 164.5 kg 10/19/16 04:34 10/19/16 04:34
--- NOTE | 2016-10-19 12:55 | P.HPIM ---
History of Present Illness H&P Date: 10/19/16 Chief Complaint: Shortness of breath This is a 61-year-old gentleman with a very complex past medical history noted below significant for morbid obesity, type 2 diabetes mellitus, and obstructive sleep apnea who presented to the hospital with worsening shortness of breath. Patient said that he shortness of breath started a few days ago but is been getting progressively worse. He is known to have underlying heart failure with chronic venous insufficiency and chronic edema. He said for the past few days he was unable to walk around without being short of breath. Yesterday he was having some chills and cough that was initially nonproductive. He presented to the emergency room was found to be hypoxic and chest x-ray showed evidence of pulmonary edema. Patient was started on IV Lasix and was admitted to the hospital. Soon after admission he was found to be tachycardic with a heart rate of 170s. Patient was noted to be in SVT. He received 1 dose of IV metoprolol. He was transferred to the intensive care unit. He remained hemodynamically stable. He was also noted to be septic with initial blood culture positive for gram-positive cocci in chains. Patient is currently on broad-spectrum antibiotic. He appeared more comfortable today. He denies shortness of breath. He was very confused last night according to his that today he is coherent and alert and awake 3. Review of Systems Review of system: 14 points review of systems were obtained and were negative except to what were mentioned in the HPI. Past Medical History Past Medical History: COPD, Diabetes Mellitus, Hyperlipidemia, Hypertension History of Any Multi-Drug Resistant Organisms: None Reported Past Surgical History: Appendectomy, Tonsillectomy Past Anesthesia/Blood Transfusion Reactions: No Reported Reaction Past Psychological History: No Psychological Hx Reported Smoking Status: Former smoker Past Alcohol Use History: None Reported Additional Past Alcohol Use History / Comment(s): cigar once or twice a year Past Drug Use History: None Reported Medications and Allergies Home Medications Medication Instructions Recorded Confirmed Type Aspirin EC [Ecotrin] 325 mg PO DAILY 10/18/16 10/18/16 History Atorvastatin [Lipitor] 40 mg PO DAILY 10/18/16 10/18/16 History Carvedilol [Coreg] 25 mg PO BID 10/18/16 10/18/16 History Clopidogrel Bisulfate [Plavix] 75 mg PO DAILY 10/18/16 10/18/16 History Furosemide [Lasix] 40 mg PO DAILY 10/18/16 10/18/16 History Insulin Glargine,Hum.rec.anlog 50 unit SQ HS 10/18/16 10/18/16 History [Lantus Solostar] Insulin Glargine,Hum.rec.anlog 55 unit SQ QAM 10/18/16 10/18/16 History [Lantus Solostar] Insulin Lispro [humaLOG Kwikpen] 20 unit SQ AC-TID 10/18/16 10/18/16 History Insulin Lispro [humaLOG Kwikpen] See Protocol SQ AC-TID 10/18/16 10/18/16 History Lisinopril-Hctz 20-12.5 mg 1 tab PO DAILY 10/18/16 10/18/16 History [Zestoretic 20-12.5] Loratadine [Claritin] 10 mg PO DAILY 10/18/16 10/18/16 History Potassium Chloride ER [K-Dur 20] 20 meq PO DAILY 10/18/16 10/18/16 History metFORMIN HCL 1,000 mg PO AC-BID 10/18/16 10/18/16 History Allergies Allergy/AdvReac Type Severity Reaction Status Date / Time No Known Allergies Allergy Verified 10/18/16 14:36 Physical Exam Vitals: Vital Signs Temp Pulse Pulse Resp BP BP Pulse Ox 10/19/16 11:29 87 10/19/16 11:22 92 10/19/16 11:18 81 10/19/16 11:00 68 22 120/65 95 10/19/16 10:00 65 18 117/70 96 10/19/16 09:00 65 13 106/56 97 10/19/16 08:00 98.3 F 64 17 105/66 98 10/19/16 07:50 75 10/19/16 07:36 76 20 10/19/16 07:00 63 21 115/55 98 10/19/16 06:30 65 18 111/56 99 10/19/16 06:00 66 18 100/58 97 10/19/16 05:30 68 21 101/56 99 10/19/16 05:00 98.6 F 70 18 112/62 98 10/19/16 04:30 70 20 108/64 98 10/19/16 04:00 100.3 F H 71 18 145/81 100 10/19/16 03:30 99.9 F H 72 20 114/66 98 10/19/16 03:00 68 20 103/57 98 10/19/16 02:30 72 20 117/67 98 10/19/16 02:00 99.7 F H 71 18 131/68 97 10/19/16 01:30 74 22 128/72 98 10/19/16 01:00 101.8 F H 77 21 150/81 98 10/19/16 00:45 78 18 168/84 97 10/19/16 00:30 102.1 F H 78 21 167/83 97 10/19/16 00:15 77 23 159/81 96 10/19/16 00:00 101.8 F H 78 22 149/79 96 10/18/16 23:45 75 19 140/77 95 10/18/16 23:30 165 H 24 107/74 96 10/18/16 23:15 90 27 H 156/82 97 10/18/16 23:00 102.1 F H 85 24 162/81 97 10/18/16 22:45 85 19 162/81 97 10/18/16 22:30 81 25 H 153/80 97 10/18/16 22:15 89 26 H 153/80 97 10/18/16 22:00 101.2 F H 90 26 H 161/86 97 10/18/16 21:45 90 22 161/86 96 10/18/16 21:30 90 23 139/68 97 10/18/16 21:15 100.9 F H 91 27 H 139/68 96 10/18/16 19:19 16 L 16 186/87 96 10/18/16 16:32 94 L 10/18/16 16:00 100.6 F H 95 24 186/87 96 10/18/16 14:59 101.2 F H 92 18 164/88 96 Intake and Output 10/18/16 10/19/16 10/19/16 22:59 06:59 14:59 Intake Total 632.024 3292 Output Total 600 2270 645 Balance -600 -1284.416 355 Intake: Intake, IV Titration 132.292 9184 Amount ACETAMINOPHEN IV (For NPO 100 ) 1,000 mg In Empty Bag 1 bag @ 400 mls/hr IVPB Q6HR PRN Rx#:[id number] Diltiazem 125 mg In 34.584 Sodium Chloride 0.9% 100 ml @ 10 MG/HR 10 mls/hr IV .[id number] [facility] Rx#: [id number] Magnesium Sulfate-D5w Pmx 200 1 gm In Dextrose/Water 1 100ml.bag @ 100 mls/hr IVPB Q1H [facility] Rx#: [id number] Piperacillin-Tazobactam 3 50.0 50 .375 gm In Dextrose/Water 1 50ml.bag @ 12.5 mls/hr IVPB Q8HR [facility] Rx#: [id number] Sodium Chloride 0.9% 1, 300 250 000 ml @ 50 mls/hr IV . Q20H [facility] Rx#:[id number] Vancomycin 2,250 mg In 501 500 Sodium Chloride 0.9% 500 ml @ 167 mls/hr IVPB Q12HR [facility] Rx#:[id number] Output: Urine 600 2270 645 Other: Voiding Method Indwelling Catheter Weight 163.293 kg 164.5 kg General: The patient is awake and alert, in no distress, and does not appear acutely ill. Eye: extra-ocular movements are intact; there is normal conjunctiva bilaterally. . Neck: The neck is supple, there is no tenderness or JVD. Cardiovascular: Normal S1-S2, no S3-S4, no murmurs. Respiratory: Lungs with bibasilar crackles Gastrointestinal: Abdomen is soft, nontender, Musculoskeletal: There is +2-3 pitting edema up to the midshin with chronic venous insufficiency skin changes Neurological: There are no obvious motor or sensory deficits. Speech is normal. Skin: Skin is warm and dry and no rashes or lesions are noted. Results CBC & Chem 7: 10/19/16 04:34 10/19/16 04:34 Labs: Abnormal Lab Results - Last 24 Hours (Table) 10/18/16 10/18/16 10/18/16 Range/Units 16:01 16:07 16:59 WBC (3.8-10.6) k/uL Neutrophils # (1.3-7.7) k/uL Neutrophils # (Manual) (1.3-7.7) k/uL Lymphocytes # (1.0-4.8) k/uL Lymphocytes # (Manual) (1.0-4.8) k/uL PT (9.0-12.0) sec ABG pH 7.50 H (7.35-7.45) ABG pCO2 31 L (35-45) mmHg ABG O2 Saturation 98.0 H (94-97) % Potassium (3.5-5.1) mmol/L Glucose (74-99) mg/dL POC Glucose (mg/dL) 114 H (75-99) mg/dL Hemoglobin A1c (4.2-6.1) % Plasma Lactic Acid Alan 2.3 H* (0.7-2.0) mmol/L Magnesium (1.6-2.3) mg/dL Troponin I (0.000-0.034) ng/mL 10/18/16 10/18/16 10/18/16 Range/Units 20:35 21:08 23:35 WBC (3.8-10.6) k/uL Neutrophils # (1.3-7.7) k/uL Neutrophils # (Manual) (1.3-7.7) k/uL Lymphocytes # (1.0-4.8) k/uL Lymphocytes # (Manual) (1.0-4.8) k/uL PT (9.0-12.0) sec ABG pH (7.35-7.45) ABG pCO2 (35-45) mmHg ABG O2 Saturation (94-97) % Potassium (3.5-5.1) mmol/L Glucose (74-99) mg/dL POC Glucose (mg/dL) 106 H (75-99) mg/dL Hemoglobin A1c (4.2-6.1) % Plasma Lactic Acid Alan (0.7-2.0) mmol/L Magnesium (1.6-2.3) mg/dL Troponin I 0.382 H* 0.413 H* (0.000-0.034) ng/mL 10/18/16 10/18/16 10/18/16 Range/Units 23:35 23:35 23:35 WBC 29.8 H* (3.8-10.6) k/uL Neutrophils # (1.3-7.7) k/uL Neutrophils # (Manual) 28.3 H (1.3-7.7) k/uL Lymphocytes # (1.0-4.8) k/uL Lymphocytes # (Manual) 0.6 L (1.0-4.8) k/uL PT 12.5 H (9.0-12.0) sec ABG pH (7.35-7.45) ABG pCO2 (35-45) mmHg ABG O2 Saturation (94-97) % Potassium 3.4 L (3.5-5.1) mmol/L Glucose 126 H (74-99) mg/dL POC Glucose (mg/dL) (75-99) mg/dL Hemoglobin A1c (4.2-6.1) % Plasma Lactic Acid Alan (0.7-2.0) mmol/L Magnesium (1.6-2.3) mg/dL Troponin I (0.000-0.034) ng/mL 10/19/16 10/19/16 10/19/16 Range/Units 04:34 04:34 04:34 WBC 25.9 H* (3.8-10.6) k/uL Neutrophils # 24.3 H (1.3-7.7) k/uL Neutrophils # (Manual) (1.3-7.7) k/uL Lymphocytes # 0.6 L (1.0-4.8) k/uL Lymphocytes # (Manual) (1.0-4.8) k/uL PT (9.0-12.0) sec ABG pH (7.35-7.45) ABG pCO2 (35-45) mmHg ABG O2 Saturation (94-97) % Potassium 3.4 L (3.5-5.1) mmol/L Glucose 167 H (74-99) mg/dL POC Glucose (mg/dL) (75-99) mg/dL Hemoglobin A1c 8.2 H (4.2-6.1) % Plasma Lactic Acid Alan (0.7-2.0) mmol/L Magnesium 1.2 L (1.6-2.3) mg/dL Troponin I (0.000-0.034) ng/mL 10/19/16 10/19/16 Range/Units 07:18 12:06 WBC (3.8-10.6) k/uL Neutrophils # (1.3-7.7) k/uL Neutrophils # (Manual) (1.3-7.7) k/uL Lymphocytes # (1.0-4.8) k/uL Lymphocytes # (Manual) (1.0-4.8) k/uL PT (9.0-12.0) sec ABG pH (7.35-7.45) ABG pCO2 (35-45) mmHg ABG O2 Saturation (94-97) % Potassium (3.5-5.1) mmol/L Glucose (74-99) mg/dL POC Glucose (mg/dL) 190 H 305 H (75-99) mg/dL Hemoglobin A1c (4.2-6.1) % Plasma Lactic Acid Alan (0.7-2.0) mmol/L Magnesium (1.6-2.3) mg/dL Troponin I (0.000-0.034) ng/mL Microbiology - Last 24 Hours (Table) 10/18/16 15:07 Urine Culture - Preliminary Urine,Voided Thrombosis Risk Factor Assmnt - Choose All That Apply Each Factor Represents 1 point: Abnormal pulmonary function (COPD), Obesity ( BMI >25), Swollen legs (current) Each Risk Factor Represents 2 Points: Age 61-74 years Thrombosis Risk Factor Assessment Total Risk Factor Score: 5 Thrombosis Risk Factor Assessment Level: High Risk Assessment and Plan Plan: 1. Acute systolic heart failure exacerbation 2. Community-acquired pneumonia: On broad-spectrum antibiotic. I will consult infectious disease for further evaluation 3. Severe sepsis without septic shock 4. Bacteremia with gram-positive cocci in chains: repeat blood culture ordered. Awaiting cultures to finalize. 5. Acute toxo metabolic encephalopathy attributed to #2 or 3 7. Obstructive sleep apnea: CPAP machine at night 7. Type 2 diabetes mellitus: Home insulin dose was reduced during this hospitalization. Would monitor closely. Sliding scale insulin. 8. Chronic venous insufficiency: Encouraged to use compression stockings regularly at home 9. Morbid obesity 10. Symptomatic supraventricular tachycardia now in normal sinus rhythm: 11. Essential hypertension: Blood pressure well-controlled 12. Mixed hyperlipidemia Today, I reviewed his medication list and lab work results. Appreciate lean process deployment consultant's recommendations. Continue diuresis with IV Lasix. Awaiting echocardiogram. Evaluation for possible EP study. We will continue ICU care otherwise. Repeat lab work in the morning. Replace electrolytes as needed. Patient and his were updated about his current clinical condition. All their questions answered to her satisfaction.
[2016-10-19] MEDS ORDERED: LEVOFLOXACIN 750MG-D5W PMX 750 MG in DEXTROSE/WATER 1 150ML.BAG IVPB SCH (16:00)
[2016-10-19] MEDS: CARVEDILOL 12.5 MG TAB PO SCH (16:58)
[2016-10-19 16:59] LABS: Glucose,Whole Blood 249 mg/dL (75-99)
[2016-10-19] MEDS ORDERED: CARVEDILOL 12.5 MG TAB PO SCH (17:30)
[2016-10-19] MEDS ORDERED: ONDANSETRON 4 MG/2 ML VIAL IVP PRN (17:37)
--- NOTE | 2016-10-19 18:12 | US ---
EXAMINATION TYPE: US venous doppler duplex LE RT DATE OF EXAM: 10/19/2016 5:56 PM COMPARISON: NONE CLINICAL HISTORY: swelling r/oDVT. ICU patient with difficulty in breathing; right lower leg swelling with skin redness and hyperpigmentation; diabetic; HT 6'0 and WT 362lbs. SIDE PERFORMED: TECHNIQUE: The lower extremity deep venous system is examined utilizing real time linear array sonog bella with graded compression, doppler sonography and color-flow sonography. VESSELS IMAGED: Common Femoral Vein Deep Femoral Vein Greater Saphenous Vein * Femoral Vein Popliteal Vein Small Saphenous Vein * Proximal Calf Veins (* superficial vessels) Right Leg: Negative for DVT. Multiple right groin nodes are noted with largest ~ = 2.6 x 2.4 x 1.6cm ; right ankle edema channels are also noted. IMPRESSION: No evidence of deep venous thrombosis. There are some enlarged inguinal lymph nodes that measure up to 2.5 cm. There is ankle edema demonstrated.
[2016-10-19] MEDS: SODIUM CHLORIDE 0.9% 1,000 ML IV SCH (19:05)
[2016-10-19 20:17] LABS: Glucose,Whole Blood 184 mg/dL (75-99)
[2016-10-19] MEDS ORDERED: INSULIN GLARGINE 100 UNIT/ML 10 ML VIAL SQ SCH (21:00)
[2016-10-19] MEDS: CLINDAMYCIN 900 MG in DEXTROSE 5% IN WATER 50 ML IVPB SCH ×2 (23:34)
[2016-10-20] MEDS: FUROSEMIDE 10 MG/ML 4 ML VIAL IV SCH (05:48)
[2016-10-20] MEDS: IBUPROFEN 800 MG TAB PO PRN (07:07)
[2016-10-20] MEDS: IPRATROPIUM-ALBUTEROL 3 ML NEB INHALATION PRN (07:47)
--- NOTE | 2016-10-20 08:11 | XR ---
EXAMINATION TYPE: XR chest 1V DATE OF EXAM: 10/20/2016 6:56 AM COMPARISON: 10/19/2016 HISTORY: 61 year-old male shortness of breath TECHNIQUE: Single frontal view of the chest is obtained. FINDINGS: Heart size appears slightly improved from prior, at the upper limits of normal. Mild interstitial pro minence not significantly changed. Aeration at the left base has improved. No significant pleural eff usion. IMPRESSION: Residual pulmonary vascular congestion with continued improving aeration. Previous left basilar opaci ty has improved.
[2016-10-20 08:18] LABS: Basophils % (A) 0 %; CH 29.5; CHCM 33.2; Eosinophils % (A) 0 %; HCT 42.7 % (39.0-53.0); HDW 2.53; HGB 13.7 gm/dL (13.0-17.5); Luc # (Auto) 0.25; Luc % (Auto) 2; Lymphocytes % (A) 7 %; MCH 28.8 pg (25.0-35.0); MCHC 32.2 g/dL (31.0-37.0); MCV 89.4 fL (80.0-100.0); Mean Platelet Volume 6.8; Monocytes # (A) 0.6 k/uL (0-1.0); Monocytes % (A) 4 %; Neutrophils # (A) 13.5 k/uL (1.3-7.7); Neutrophils % (A) 88 %; RBC 4.78 m/uL (4.30-5.90); RDW 15.2 % (11.5-15.5); WBC 15.4 k/uL (3.8-10.6); WBC (Perox) 15.98
[2016-10-20] MEDS ORDERED: VANCOMYCIN TROUGH DUE 1 EACH MISC MISCELLANE ONE (08:30)
[2016-10-20 08:33] LABS: Anion Gap 14 mmol/L; Blood Urea Nitrogen 29 mg/dL (9-20); Carbon Dioxide 25 mmol/L (22-30); Chloride 100 mmol/L (98-107); Glucose 176 mg/dL (74-99); Magnesium 1.7 mg/dL (1.6-2.3); Non-African American GFR(MDRD) 50 (>60 ml/min/1.73 sqM); Phosphorous 2.8 mg/dL (2.5-4.5); Potassium 3.4 mmol/L (3.5-5.1); Sodium 139 mmol/L (137-145)
[2016-10-20] MEDS ORDERED: LISINOPRIL-HCTZ 20-12.5 MG 1 EACH TAB PO SCH (09:00)
[2016-10-20] MEDS: PANTOPRAZOLE 40 MG TABLET PO SCH (09:01)
[2016-10-20] MEDS: HEPARIN SODIUM,PORCINE 5,000 UNIT/ML 1 ML VIAL SQ SCH ×2 (09:02→17:41)
[2016-10-20] MEDS: ASPIRIN 325 MG TAB PO SCH (09:02)
[2016-10-20] MEDS: CARVEDILOL 12.5 MG TAB PO SCH ×2 (09:02→17:40)
[2016-10-20] MEDS: INSULIN GLARGINE 100 UNIT/ML 10 ML VIAL SQ SCH ×2 (09:07→22:01)
[2016-10-20] MEDS: INSULIN LISPRO (humaLOG) 300 UNIT/3 ML VIAL SQ SCH ×7 (09:09→21:55)
[2016-10-20] MEDS: POTASSIUM CHLORIDE ER 20 MEQ TAB.ER PO SCH ×2 (09:11→12:25)
[2016-10-20] MEDS: NITROGLYCERIN OINT 1 INCH/GM PACKET TOPICAL SCH ×4 (09:12→21:57)
[2016-10-20] MEDS: CLINDAMYCIN 900 MG in DEXTROSE 5% IN WATER 50 ML IVPB SCH ×4 (09:16→22:01)
--- NOTE | 2016-10-20 09:55 | CONS ---
DATE OF CONSULTATION: 10/19/2016 REASON FOR CONSULTATION: Bacteremia. HISTORY OF PRESENT ILLNESS: The patient is a 61 -year-old male who presented to the [facility] ER on 10/17/2016 with chief complaints of difficulty in breathing. The patient's symptoms started just about an hour. Was mostly sudden onset and the patient did have associated rigors and chills with it. The patient denies significant URI symptoms. Denies significant chest pain or cough. The patient denies any abdominal pain. No nausea or vomiting. No diarrhea. The patient did have a chronic swelling of his right lower extremity which seemed to be slightly more swollen and red, but denies significant pain to right leg area. Patient denies any nausea. No vomiting. No abdominal pain or any diarrhea. Subsequently, the patient has been admitted to the intensive care, admitted to the hospital. The patient did have evidence of SVT, however, the patient has been taken to the ICU. The patient did have chest x-ray suggestive of pulmonary vascular hypertension and interstitial edema. Patient did have a fever of 101.2. degrees Fahrenheit and elevated white count of 22,000. Patient had been started on broad spectrum antibiotic in the form of Vanco and Zosyn. I was asked to see the patient after the patient's blood culture reported positive for a gram-positive cocci. REVIEW OF SYSTEMS: CONSTITUTIONAL: Positive for weakness along with rigors and chills. EYES: No complaint. ENT: No complaint. RESPIRATORY: As per HPI. CARDIOVASCULAR: No complaint. GENITOURINARY: No complaint. GASTROINTESTINAL: No complaint. MUSCULOSKELETAL: No complaint. INTEGUMENTARY: As per HPI. PSYCHOLOGIC: No complaint. ENDOCRINE: No complaint. NEUROLOGICAL: No complaint. PAST MEDICAL HISTORY: Significant for hypertension, hyperlipidemia, diabetes mellitus, COPD. PAST SURGICAL HISTORY: Appendectomy, tonsillectomy. SOCIAL HISTORY: Remote history of smoking. No drinking or drug use. FAMILY HISTORY: No pertinent findings were noticed. ALLERGIES: No known drug allergies. Medications currently include the patient is on: 1. DuoNeb. 2. Aspirin. 3. Coreg. 4. Lasix. 5. Heparin. 6. Motrin. 7. Lantus. 8. Humalog. 9. Ativan. 10. Nitrostat. 11. Nitro-Bid. 12. Zofran. 13. Protonix. On examination, blood pressure 99/61 with a pulse of 71, temperature 98.4, T-max 101.8. He is 95%. General description is a middle-age male lying in bed in no distress. No tachypnea or accessory muscle of respiration use. HEENT examination: no pallor or scleral icterus. Oral mucous membrane is dry. NECK: Trachea central, no thyromegaly. LUNGS: Unlabored breathing. Some decreased breath sounds at the base. No wheeze. HEART: S1, S2. Regular rate and rhythm. ABDOMEN: Soft. No tenderness. EXTREMITIES: Right leg is more swollen, slightly read and is warm no evidence of any Athlete foot. SKIN: No rashes or masses palpable. NEUROLOGICAL: The patient is awake, alert, oriented x3. Mood and affect normal. LABS: Hemoglobin is 14.6, white count 5.9. Admission white count was 22,000. BUN of 20 with a creatinine 1.2, liver enzymes have been normal. Troponin is slightly elevated. Urine is negative. Influenza A and B serology negative. Chest x-ray as reported above. DIAGNOSTIC IMPRESSION AND PLAN: Patient with sepsis and patient was admitted to the hospital with fever of 101 degrees Fahrenheit. The patient did have elevated white count of 22,000 meeting criteria for systemic inflammatory response syndrome, now with evidence of Gram-positive bacteremia. Source is likely right lower extremity cellulitis in a patient who did have diffuse swelling and redness with more likely streptococcal infection. Clinically doubt pneumonia or an infection at the other site of the body. PLAN: 1. DisContinue Vanco, Zosyn and Levaquin. 2. Obtain a STAT lower extremity Doppler of the right leg to make sure no evidence of any DVT. 3. Will start the patient on cefazolin 2 grams q8hr to cover for the possible streptococcal cellulitis secondary bacteremia. 4. We will follow up on his clinical condition and cultures to further adjust the medication if needed. Thank you for this consultation. We will follow this patient along with you. NICO
--- NOTE | 2016-10-20 11:15 | P.PN ---
Subjective Principal diagnosis: Acute hypoxic respiratory failure Patient is doing a lot better today. He was transferred outside the ICU. No events overnight. Objective - Vital Signs Vital signs: Vital Signs Temp 98.2 F 10/20/16 08:00 Pulse 16 L 10/20/16 11:06 Resp 36 H 10/20/16 08:00 BP 132/60 10/20/16 08:00 Pulse Ox 95 10/20/16 08:00 Intake & Output 10/19/16 10/20/16 10/20/16 18:59 06:59 18:59 Intake Total 1550 650 460 Output Total 1545 815 380 Balance 5 -165 80 Weight 160.8 kg Intake: IV 50 Sodium Chloride 0.9% 1, 50 000 ml @ 50 mls/hr IV . Q20H [facility] Rx#:[id number] Intake, IV Titration 1550 650 50 Amount Clindamycin 900 mg In 50 Dextrose 5% in Water 50 ml @ 100 mls/hr IVPB Q8HR [facility] Rx#:[id number] Levofloxacin 750Mg-D5w 150 Pmx 750 mg In Dextrose/ Water 1 150ml.bag @ 100 mls/hr IVPB Q24H [facility] Rx#: [id number] Magnesium Sulfate-D5w Pmx 200 1 gm In Dextrose/Water 1 100ml.bag @ 100 mls/hr IVPB Q1H [facility] Rx#: [id number] Piperacillin-Tazobactam 3 100 .375 gm In Dextrose/Water 1 50ml.bag @ 12.5 mls/hr IVPB Q8HR [facility] Rx#: [id number] Sodium Chloride 0.9% 1, 600 600 50 000 ml @ 50 mls/hr IV . Q20H [facility] Rx#:[id number] Vancomycin 2,250 mg In 500 Sodium Chloride 0.9% 500 ml @ 167 mls/hr IVPB Q12HR [facility] Rx#:[id number] Oral 360 Output: Urine 1545 815 380 Other: Voiding Method Indwelling Catheter Indwelling Catheter Urinal - Exam General: The patient is awake and alert, in no distress Eye: there is normal conjunctiva bilaterally. Neck: The neck is supple, there is no JVD. Cardiovascular: Normal S1-S2, no S3-S4, no murmurs. Respiratory: Lungs with mild bibasilar rales Gastrointestinal: Abdomen is soft, nontender Musculoskeletal: There is +1-2 pedal edema With chronic venous insufficiency skin color changes Neurological:. Speech is normal. Skin: Skin is warm and dry - Labs CBC & Chem 7: 10/20/16 07:38 10/20/16 07:38 Labs: Abnormal Lab Results - Last 24 Hours (Table) 10/19/16 10/19/16 10/19/16 Range/Units 04:34 12:06 16:58 WBC (3.8-10.6) k/uL Neutrophils # (1.3-7.7) k/uL Potassium (3.5-5.1) mmol/L BUN (9-20) mg/dL Creatinine (0.66-1.25) mg/dL Glucose (74-99) mg/dL POC Glucose (mg/dL) 305 H 249 H (75-99) mg/dL Hemoglobin A1c 8.2 H (4.2-6.1) % Calcium (8.4-10.2) mg/dL 10/19/16 10/20/16 10/20/16 Range/Units 20:13 07:38 07:38 WBC 15.4 H (3.8-10.6) k/uL Neutrophils # 13.5 H (1.3-7.7) k/uL Potassium 3.4 L (3.5-5.1) mmol/L BUN 29 H (9-20) mg/dL Creatinine 1.44 H (0.66-1.25) mg/dL Glucose 176 H (74-99) mg/dL POC Glucose (mg/dL) 184 H (75-99) mg/dL Hemoglobin A1c (4.2-6.1) % Calcium 8.0 L (8.4-10.2) mg/dL Microbiology - Last 24 Hours (Table) 10/18/16 20:35 Blood Culture - Preliminary Blood No Growth after 24 hours 10/18/16 15:07 Urine Culture - Final Urine,Voided Assessment and Plan Plan: 1. Acute systolic heart failure exacerbation 2. Community-acquired pneumonia: On broad-spectrum antibiotic. Antibiotic adjusted by infectious disease 3. Severe sepsis without septic shock 4. Bacteremia with gram-positive cocci in chains: repeat blood culture negative to date. Awaiting cultures to finalize. 5. Acute toxo metabolic encephalopathy attributed to #2 or 3 7. Obstructive sleep apnea: CPAP machine at night 7. Type 2 diabetes mellitus: Home insulin dose was reduced during this hospitalization. Would monitor closely. Sliding scale insulin. 8. Chronic venous insufficiency: Encouraged to use compression stockings regularly at home 9. Morbid obesity 10. Symptomatic supraventricular tachycardia now in normal sinus rhythm: 11. Essential hypertension: Blood pressure well-controlled 12. Mixed hyperlipidemia 13. Acute kidney injury, most likely secondary to diuresis use. I would switch Lasix to oral. Today, I reviewed his medication list and lab work results. Appreciate [facility] ascp consultant's recommendations. Switch to oral Lasix given worsening creatinine level. Awaiting echocardiogram. Evaluation for possible EP study. We will continue ICU care otherwise. Repeat lab work in the morning. Replace electrolytes as needed. Patient and his were updated about his current clinical condition. All their questions answered to her satisfaction.
--- NOTE | 2016-10-20 11:23 | P.PN ---
Subjective Progress note dated 10/20/2016 61-year-old male with a history of multiple medical problems including sleep apnea syndrome valvular heart disease diabetes hyperlipidemia obesity. Does have a history of heart failure. Seen by cash manager out of [place] who was sometimes comes to [place] and/or [facility]. Anyway the patient presents with complaints of shortness of breath. He was found on chest x-ray and by labs and by examination to have heart failure. Chest x-ray this morning is much improved. He was initially in the ICU and was sound transferred out this morning before had a chance to see me in the ICU.Dr. Silva did the consult yesterday. His impression was the patient had acute pulmonary edema with hypoxemic respiratory failure acute sepsis with bacteremia although the source was not clear possibly cellulitis of the right lower extremity possible endocarditis multiple comorbidities including sleep apnea syndrome morbid obesity type 2 diabetes hypertension and hyperlipidemia. He ordered number different things noted in his consultation. Again I'm happy to report that the patient's feeling much improved. He was stable to be moved out of the ICU this morning. Objective - Vital Signs Vital signs: Vital Signs Temp 98.2 F 10/20/16 08:00 Pulse 16 L 10/20/16 11:06 Resp 36 H 10/20/16 08:00 BP 132/60 10/20/16 08:00 Pulse Ox 95 10/20/16 08:00 Intake & Output 10/19/16 10/20/16 10/20/16 18:59 06:59 18:59 Intake Total 1550 650 460 Output Total 1545 815 380 Balance 5 -165 80 Weight 160.8 kg Intake: IV 50 Sodium Chloride 0.9% 1, 50 000 ml @ 50 mls/hr IV . Q20H [facility] Rx#:[id number] Intake, IV Titration 1550 650 50 Amount Clindamycin 900 mg In 50 Dextrose 5% in Water 50 ml @ 100 mls/hr IVPB Q8HR [facility] Rx#:[id number] Levofloxacin 750Mg-D5w 150 Pmx 750 mg In Dextrose/ Water 1 150ml.bag @ 100 mls/hr IVPB Q24H [facility] Rx#: [id number] Magnesium Sulfate-D5w Pmx 200 1 gm In Dextrose/Water 1 100ml.bag @ 100 mls/hr IVPB Q1H [facility] Rx#: [id number] Piperacillin-Tazobactam 3 100 .375 gm In Dextrose/Water 1 50ml.bag @ 12.5 mls/hr IVPB Q8HR [facility] Rx#: [id number] Sodium Chloride 0.9% 1, 600 600 50 000 ml @ 50 mls/hr IV . Q20H [facility] Rx#:[id number] Vancomycin 2,250 mg In 500 Sodium Chloride 0.9% 500 ml @ 167 mls/hr IVPB Q12HR [facility] Rx#:[id number] Oral 360 Output: Urine 1545 815 380 Other: Voiding Method Indwelling Catheter Indwelling Catheter Urinal - Exam No acute distress, oriented 3. HEENT examination is grossly unremarkable. Mucous membranes are moist. No oral lesion. Neck supple. Full range of motion. Neck veins are flat. Cardiovascular examination reveals distant heart sound. There is a grade 2/6 systolic murmur heard throughout the entire precordium. No S3 or S4. Pulmonary examination reveals some bibasilar crackles. No wheezes or rhonchi. Abdomen is obese. Bowel sounds are heard. Extremities are intact. There is evidence of lower extremity edema. Today patient is some cellulitis erythema and swelling of the left lower extremity as well as the right lower extremity but the right side seems worse. Dermatologically there are some changes of chronic venous stasis and neurologic examination is grossly nonfocal. - Labs CBC & Chem 7: 10/20/16 07:38 10/20/16 07:38 Labs: Abnormal Lab Results - Last 24 Hours (Table) 10/19/16 10/19/16 10/19/16 Range/Units 04:34 12:06 16:58 WBC (3.8-10.6) k/uL Neutrophils # (1.3-7.7) k/uL Potassium (3.5-5.1) mmol/L BUN (9-20) mg/dL Creatinine (0.66-1.25) mg/dL Glucose (74-99) mg/dL POC Glucose (mg/dL) 305 H 249 H (75-99) mg/dL Hemoglobin A1c 8.2 H (4.2-6.1) % Calcium (8.4-10.2) mg/dL 10/19/16 10/20/16 10/20/16 Range/Units 20:13 07:38 07:38 WBC 15.4 H (3.8-10.6) k/uL Neutrophils # 13.5 H (1.3-7.7) k/uL Potassium 3.4 L (3.5-5.1) mmol/L BUN 29 H (9-20) mg/dL Creatinine 1.44 H (0.66-1.25) mg/dL Glucose 176 H (74-99) mg/dL POC Glucose (mg/dL) 184 H (75-99) mg/dL Hemoglobin A1c (4.2-6.1) % Calcium 8.0 L (8.4-10.2) mg/dL Microbiology - Last 24 Hours (Table) 10/18/16 20:35 Blood Culture - Preliminary Blood No Growth after 24 hours 10/18/16 15:07 Urine Culture - Final Urine,Voided Assessment and Plan (1) CHF (congestive heart failure) Status: Acute (2) Diabetes Status: Acute (3) Cellulitis Status: Acute (4) Sleep apnea syndrome Status: Acute (5) Obesity Status: Acute (6) Hypertension Status: Acute (7) Hyperlipidemia Status: Acute (8) Acute respiratory failure Status: Acute (9) Flash pulmonary edema Status: Acute Plan: Plan dated 10/20/2016 The patient seems be doing relatively well. We'll continue the medications that Dr. Silva recommended. He is currently on appropriate diuretics and other medications to improve his heart failure. He has seen the cash manager here. His breathing is much improved. Denies any history of any intrinsic lung disease. Does have history of sleep apnea syndrome. Again the patient seemed be much better. We'll continue to follow. Hopefully discharge in next day or 2. Time with Patient: Less than 30
--- NOTE | 2016-10-20 11:55 | ECHOF ---
Referral Reason:SVT MEASUREMENTS -------- HEIGHT: 182.9 cm WEIGHT: 164.2 kg BP: 116/59 RVIDd: 3.4 cm (< 3.3) IVSd: 1.8 cm (0.6 - 1.1) LVIDd: 4.8 cm (3.9 - 5.3) LVPWd: 1.7 cm (0.6 - 1.1) IVSs: 2.4 cm LVIDs: 3.1 cm LVPWs: 2.3 cm LA Diam: 4.8 cm (2.7 - 3.8) LAESV Index (A-L): 39.14 ml/m Ao Diam: 3.9 cm (2.0 - 3.7) AV Cusp: 2.2 cm (1.5 - 2.6) MV EXCURSION: 18.742 mm (> 18.000) MV EF SLOPE: 44 mm/s (70 - 150) EPSS: 0.6 cm MV E Carlos: 1.37 m/s MV DecT: 297 ms MV A Carlos: 0.49 m/s MV E/A Ratio: 2.78 RAP: 5.00 mmHg RVSP: 25.39 mmHg FINDINGS -------- Sinus rhythm. This was a technically adequate study. The left ventricular size is normal. There is severe concentric left ventricular hypertrophy. Overall left ventricular systolic function is normal with, an EF between 55 - 60 %. The right ventricle is mildly enlarged. LA is moderately dilated 34-39 ml/m2 The right atrium is normal in size. Aortic valve is trileaflet and is mildly thickened. Mild mitral annular calcification present. There is trace to mild mitral regurgitation. Mild tricuspid regurgitation present. Right ventricular systolic pressure is normal at < 35 mmHg. The pulmonic valve was not well visualized. The aortic root is dilated measuring 3.9cm. The inferior vena cava is mildly dilated. The pericardium is normal. CONCLUSIONS -------- 1. Sinus rhythm. 2. Mild mitral annular calcification present. 3. There is trace to mild mitral regurgitation. 4. Mild tricuspid regurgitation present. 5. Right ventricular systolic pressure is normal at < 35 mmHg. 6. The pulmonic valve was not well visualized. 7. The aortic root is dilated measuring 3.9cm. 8. The inferior vena cava is mildly dilated. 9. The pericardium is normal. 10. This was a technically adequate study. 11. The left ventricular size is normal. 12. There is severe concentric left ventricular hypertrophy. 13. Overall left ventricular systolic function is normal with, an EF between 55 - 60 %. 14. The right ventricle is mildly enlarged. 15. LA is moderately dilated 34-39 ml/m2 16. The right atrium is normal in size. 17. Aortic valve is trileaflet and is mildly thickened. EXCELLENCE CONSULTANT: Cherelle Mcdaniel RDCS
[2016-10-20 11:57] LABS: Glucose,Whole Blood 258 mg/dL (75-99)
[2016-10-20 14:23] VITALS: BMI 48.0
[2016-10-20 16:41] LABS: Glucose,Whole Blood 175 mg/dL (75-99)
[2016-10-20] MEDS: FUROSEMIDE 40 MG TAB PO SCH (17:41)
[2016-10-20] MEDS: ceFAZolin 2 GM in SODIUM CHLORIDE 0.9% 100 ML IVPB SCH ×2 (17:57→21:54)
[2016-10-20 20:26] LABS: Glucose,Whole Blood 210 mg/dL (75-99)
[2016-10-21] MEDS: CLINDAMYCIN 900 MG in DEXTROSE 5% IN WATER 50 ML IVPB SCH ×6 (00:37→16:56)
[2016-10-21] MEDS: HEPARIN SODIUM,PORCINE 5,000 UNIT/ML 1 ML VIAL SQ SCH ×3 (00:38→16:57)
[2016-10-21 06:31] LABS: Basophils % (A) 0 %; CH 29.7; CHCM 33.3; Eosinophils # (A) 0.2 k/uL (0-0.7); Eosinophils % (A) 2 %; HCT 39.9 % (39.0-53.0); HDW 2.62; Luc # (Auto) 0.19; Luc % (Auto) 2; Lymphocytes # (A) 1.6 k/uL (1.0-4.8); Lymphocytes % (A) 16 %; MCH 29.3 pg (25.0-35.0); MCHC 32.7 g/dL (31.0-37.0); MCV 89.6 fL (80.0-100.0); Monocytes # (A) 0.4 k/uL (0-1.0); Monocytes % (A) 4 %; Neutrophils # (A) 7.7 k/uL (1.3-7.7); Neutrophils % (A) 76 %; RBC 4.45 m/uL (4.30-5.90); RDW 15.1 % (11.5-15.5); WBC 10.1 k/uL (3.8-10.6); WBC (Perox) 10.22
[2016-10-21 06:34] LABS: Anion Gap 11 mmol/L; Blood Urea Nitrogen 26 mg/dL (9-20); Carbon Dioxide 27 mmol/L (22-30); Chloride 100 mmol/L (98-107); Glucose 159 mg/dL (74-99); Magnesium 1.9 mg/dL (1.6-2.3); Non-African American GFR(MDRD) >60 (>60 ml/min/1.73 sqM); Phosphorous 2.9 mg/dL (2.5-4.5); Potassium 3.4 mmol/L (3.5-5.1); Sodium 138 mmol/L (137-145)
[2016-10-21 06:39] LABS: Glucose,Whole Blood 151 mg/dL (75-99)
[2016-10-21] MEDS: INSULIN LISPRO (humaLOG) 300 UNIT/3 ML VIAL SQ SCH ×7 (06:53→23:09)
[2016-10-21] MEDS: CARVEDILOL 12.5 MG TAB PO SCH ×2 (06:53→17:05)
[2016-10-21] MEDS: PANTOPRAZOLE 40 MG TABLET PO SCH (06:53)
--- NOTE | 2016-10-21 07:15 | PN ---
DATE OF SERVICE: 10/20/2016 Reason for followup is right lower extremity cellulitis with strep bacteremia. INTERVAL HISTORY: The patient did have fever last night, however, the patient is afebrile since then. He has been feeling better. Breathing comfortably on room air. Denies any significant chest pain or cough. No abdominal pain. Slight swelling of the right leg though no significant pain. No abdominal pain and no diarrhea. On examination, blood pressure 110/63 with a pulse of 69, temperature 98. He is 96% on room air. General description is a middle-aged male up in the bed in no distress. RESPIRATORY SYSTEM: Unlabored breathing. Clear to auscultation anteriorly. HEART: S1, S2. Regular rate and rhythm. ABDOMEN: Soft, no tenderness. Right leg swelling and redness persists. LABS: Hemoglobin is 13.7, white count 15.4 with a BUN of 29, creatinine 1.44. Blood culture with beta-hemolytic strep group C. DIAGNOSTIC IMPRESSION AND PLAN: Patient with sepsis, source is right lower extremity cellulitis with group C strep bacteremia. Patient at this time will be continued cefazolin and clindamycin along with Moreno wrap to the leg to keep the swelling down. Hopefully finish therapy with oral antibiotic in the next 24 to 48 hours. Continue supportive care.
[2016-10-21] MEDS: SODIUM CHLORIDE 0.9% 1,000 ML IV SCH ×3 (08:11→23:08)
--- NOTE | 2016-10-21 09:29 | XR ---
EXAMINATION TYPE: XR chest 1V DATE OF EXAM: 10/21/2016 9:19 AM COMPARISON: 10/20/2016 INDICATION: Short of breath TECHNIQUE: Single frontal view of the chest is obtained. FINDINGS: The heart size is normal. The pulmonary vasculature is normal. The lungs are clear. IMPRESSION: 1. No acute pulmonary process.
[2016-10-21] MEDS: ASPIRIN 325 MG TAB PO SCH (09:33)
[2016-10-21] MEDS: FUROSEMIDE 40 MG TAB PO SCH ×2 (09:34→16:57)
[2016-10-21] MEDS: INSULIN GLARGINE 100 UNIT/ML 10 ML VIAL SQ SCH ×2 (09:34→23:08)
[2016-10-21] MEDS: NITROGLYCERIN OINT 1 INCH/GM PACKET TOPICAL SCH ×2 (09:35→14:22)
[2016-10-21] MEDS ORDERED: FUROSEMIDE 10 MG/ML 2 ML VIAL IV ONE (10:50)
--- NOTE | 2016-10-21 10:50 | P.PN ---
Subjective Principal diagnosis: Acute hypoxic respiratory failure Patient is doing fairly well today. He continues to have significant edema in the lower extremities. No shortness of breath. Repeat chest x-ray showed no acute findings. Objective - Vital Signs Vital signs: Vital Signs Temp 99.3 F 10/21/16 07:55 Pulse 67 10/21/16 07:55 Resp 18 10/21/16 07:55 BP 143/66 10/21/16 07:55 Pulse Ox 95 10/21/16 07:55 Intake & Output 10/20/16 10/21/16 10/21/16 18:59 06:59 18:59 Intake Total 696 180 Output Total 380 1000 250 Balance 316 -1000 -70 Weight 160.8 kg 160.5 kg 160.5 kg Intake: IV 50 Sodium Chloride 0.9% 1, 50 000 ml @ 50 mls/hr IV . Q20H [facility] Rx#:[id number] Intake, IV Titration 50 Amount Sodium Chloride 0.9% 1, 50 000 ml @ 50 mls/hr IV . Q20H [facility] Rx#:[id number] Oral 596 180 Output: Urine 380 1000 250 Other: Voiding Method Urinal Urinal Urinal # Voids 1 1 - Exam General: The patient is awake and alert, in no distress Eye: there is normal conjunctiva bilaterally. Neck: The neck is supple, there is no JVD. Cardiovascular: Normal S1-S2, no S3-S4, no murmurs. Respiratory: Lungs with mild bibasilar rales Gastrointestinal: Abdomen is soft, nontender Musculoskeletal: There is +1-2 pedal edema With chronic venous insufficiency skin color changes Neurological:. Speech is normal. Skin: Skin is warm and dry - Labs CBC & Chem 7: 10/21/16 05:56 10/21/16 05:56 Labs: Abnormal Lab Results - Last 24 Hours (Table) 10/20/16 10/20/16 10/20/16 Range/Units 11:55 16:36 20:25 Potassium (3.5-5.1) mmol/L BUN (9-20) mg/dL Glucose (74-99) mg/dL POC Glucose (mg/dL) 258 H 175 H 210 H (75-99) mg/dL Calcium (8.4-10.2) mg/dL 10/21/16 10/21/16 Range/Units 05:56 06:36 Potassium 3.4 L (3.5-5.1) mmol/L BUN 26 H (9-20) mg/dL Glucose 159 H (74-99) mg/dL POC Glucose (mg/dL) 151 H (75-99) mg/dL Calcium 8.0 L (8.4-10.2) mg/dL Microbiology - Last 24 Hours (Table) 10/18/16 20:35 Blood Culture - Preliminary Blood No Growth after 48 hours 10/19/16 12:40 Blood Culture - Preliminary Blood No Growth after 24 hours 10/19/16 12:00 Blood Culture - Preliminary Blood No Growth after 24 hours Assessment and Plan Plan: 1. Acute diastolic heart failure exacerbation 2. Community-acquired pneumonia: On broad-spectrum antibiotic. Antibiotic adjusted by infectious disease 3. Severe sepsis without septic shock 4. Bacteremia with gram-positive cocci in chains: repeat blood culture negative to date. Awaiting cultures to finalize. 5. Acute toxo metabolic encephalopathy attributed to #2 or 3 7. Obstructive sleep apnea: CPAP machine at night 7. Type 2 diabetes mellitus: Home insulin dose was reduced during this hospitalization. Would monitor closely. Sliding scale insulin. 8. Chronic venous insufficiency: Encouraged to use compression stockings regularly at home 9. Morbid obesity 10. Symptomatic supraventricular tachycardia now in normal sinus rhythm: 11. Essential hypertension: Blood pressure well-controlled 12. Mixed hyperlipidemia 13. Acute kidney injury, now resolved. Avoid nephrotoxins. Today, I reviewed his medication list and lab work results. Appreciate specialty development consultant's recommendations. Echocardiogram showed preserved ejection fraction and normal right ventricular systolic pressure. There is severe concentric left ventricular hypertrophy noted. No significant valvular abnormalities. Give 1 dose of IV Lasix. Repeat lab work in the morning. Replace electrolytes as needed. Patient and his were updated about his current clinical condition. All their questions answered to her satisfaction. Plan to discharge home tomorrow to finish antibiotic course with oral Keflex.
[2016-10-21 12:06] LABS: Glucose,Whole Blood 244 mg/dL (75-99)
--- NOTE | 2016-10-21 12:40 | PN ---
DATE OF SERVICE: 10/21/2016 Reason for followup is right lower extremity cellulitis with strep bacteremia. INTERVAL HISTORY: The patient is afebrile. He is currently breathing comfortably. Patient denies significant chest pain, shortness of breath, cough. No abdominal pain. He really wants to go home. On examination, blood pressure 143/66 with pulse of 67, temperature 99.3. He is 95% on room air. General description is a middle-age male up in the chair in no distress. RESPIRATORY SYSTEM: Unlabored breathing. Clear to auscultation anteriorly. HEART: S1, S2. Regular rate and rhythm. ABDOMEN: Soft, no tenderness. Right leg swelling and redness have improved. LABS: Hemoglobin is 13, white count normal at10.1 with a BUN of 26, creatinine 1.20. Blood culture with group C strep. DIAGNOSTIC IMPRESSION AND PLAN: Patient with sepsis with right lower extremity cellulitis and group C strept bacteremia. Patient at this time is insisting on going home. He will be switched over to p.o. Keflex 500 q.6 for another 12 days with close outpatient follow up along with Moreno wrap to the leg to keep the swelling down. Plan of care discussed with attending. NICO
--- NOTE | 2016-10-21 13:37 | P.PN ---
Subjective Progress note dated 10/20/2016 61-year-old male with a history of multiple medical problems including sleep apnea syndrome valvular heart disease diabetes hyperlipidemia obesity. Does have a history of heart failure. Seen by children's tutor nursery out of [place] who was sometimes comes to [place] and/or [facility]. Anyway the patient presents with complaints of shortness of breath. He was found on chest x-ray and by labs and by examination to have heart failure. Chest x-ray this morning is much improved. He was initially in the ICU and was sound transferred out this morning before had a chance to see me in the ICU.Dr. Silva did the consult yesterday. His impression was the patient had acute pulmonary edema with hypoxemic respiratory failure acute sepsis with bacteremia although the source was not clear possibly cellulitis of the right lower extremity possible endocarditis multiple comorbidities including sleep apnea syndrome morbid obesity type 2 diabetes hypertension and hyperlipidemia. He ordered number different things noted in his consultation. Again I'm happy to report that the patient's feeling much improved. He was stable to be moved out of the ICU this morning. Progress note dated 10/21/2016 61-year-old male who was seen initially over the week and by my partner. He came with a history of CHF. Has history of sleep apnea syndrome valvular heart disease diabetes hyperlipidemia and obesity. Also has a history of chronic CHF. Sees a children's tutor nursery out of [place]. Anyway the patient is feeling much better. He was in the unit Thursday morning but we saw him actually after he got transferred off the unit to the sixth floor. The patient does have a history of multiple other medical problems as mentioned above and also mentioned in the progress note from yesterday. Anyway he is feeling much improved. Chest x-ray is much improved. Much less short of breath. Possible discharge today he is not sure. Objective - Vital Signs Vital signs: Vital Signs Temp 97.6 F 10/21/16 11:20 Pulse 59 L 10/21/16 11:20 Resp 20 10/21/16 11:20 BP 135/72 10/21/16 11:20 Pulse Ox 96 10/21/16 11:20 Intake & Output 10/20/16 10/21/16 10/21/16 18:59 06:59 18:59 Intake Total 696 420 Output Total 380 1000 250 Balance 316 -1000 170 Weight 160.8 kg 160.5 kg 160.5 kg Intake: IV 50 Sodium Chloride 0.9% 1, 50 000 ml @ 50 mls/hr IV . Q20H DOUGLAS Rx#:[id number] Intake, IV Titration 50 Amount Sodium Chloride 0.9% 1, 50 000 ml @ 50 mls/hr IV . Q20H DOUGLAS Rx#:[id number] Oral 596 420 Output: Urine 380 1000 250 Other: Voiding Method Urinal Urinal Urinal # Voids 1 1 - Exam No acute distress, oriented 3. HEENT examination is grossly unremarkable. Mucous membranes are moist. No oral lesion. Neck supple. Full range of motion. Neck veins are flat. Cardiovascular examination reveals distant heart sound. There is a grade 2/6 systolic murmur heard throughout the entire precordium. No S3 or S4. Pulmonary examination reveals some bibasilar crackles. No wheezes or rhonchi. Abdomen is obese. Bowel sounds are heard. Extremities are intact. There is evidence of lower extremity edema. Today patient is some cellulitis erythema and swelling of the left lower extremity as well as the right lower extremity but the right side seems worse. Dermatologically there are some changes of chronic venous stasis and neurologic examination is grossly nonfocal. - Labs CBC & Chem 7: 10/21/16 05:56 10/21/16 05:56 Labs: Abnormal Lab Results - Last 24 Hours (Table) 10/20/16 10/20/16 10/21/16 Range/Units 16:36 20:25 05:56 Potassium 3.4 L (3.5-5.1) mmol/L BUN 26 H (9-20) mg/dL Glucose 159 H (74-99) mg/dL POC Glucose (mg/dL) 175 H 210 H (75-99) mg/dL Calcium 8.0 L (8.4-10.2) mg/dL 10/21/16 10/21/16 Range/Units 06:36 11:39 Potassium (3.5-5.1) mmol/L BUN (9-20) mg/dL Glucose (74-99) mg/dL POC Glucose (mg/dL) 151 H 244 H (75-99) mg/dL Calcium (8.4-10.2) mg/dL Microbiology - Last 24 Hours (Table) 10/18/16 20:35 Blood Culture - Preliminary Blood No Growth after 48 hours 10/19/16 12:40 Blood Culture - Preliminary Blood No Growth after 24 hours 10/19/16 12:00 Blood Culture - Preliminary Blood No Growth after 24 hours Assessment and Plan (1) CHF (congestive heart failure) Status: Acute (2) Diabetes Status: Acute (3) Cellulitis Status: Acute (4) Sleep apnea syndrome Status: Acute (5) Obesity Status: Acute (6) Hypertension Status: Acute (7) Hyperlipidemia Status: Acute (8) Acute respiratory failure Status: Acute (9) Flash pulmonary edema Status: Acute Plan: Plan dated 10/20/2016 The patient seems be doing relatively well. We'll continue the medications that Dr. Silva recommended. He is currently on appropriate diuretics and other medications to improve his heart failure. He has seen the children's tutor nursery here. His breathing is much improved. Denies any history of any intrinsic lung disease. Does have history of sleep apnea syndrome. Again the patient seemed be much better. We'll continue to follow. Hopefully discharge in next day or 2. Plan dated 10/21/2016 The patient seemed be doing a lot better. Much less short of breath. His chest x-ray shows no active cardiopulmonary disease. He mentions that he may be discharged home. I'm not sure about that. The patient will follow-up with his primary physician. Used to see Dr. Colbert here in town but apparently got Black listed there. He may be going back to his [facility]'s tutor nursery at [facility]. Doesn't want to see his children's tutor nursery in [place] anymore. Time with Patient: Less than 30
[2016-10-21] MEDS: ceFAZolin 2 GM in SODIUM CHLORIDE 0.9% 100 ML IVPB SCH ×2 (14:22→23:07)
[2016-10-21 16:59] LABS: Glucose,Whole Blood 277 mg/dL (75-99)
--- NOTE | 2016-10-21 17:12 | P.PN ---
Subjective Principal diagnosis: I reevaluated Mr. Angel He was admitted with sudden onset of shortness of breath as well as fever to 101.8 He is found to be in SVT at 171 beats a minute and he was treated with IV metoprolol Since he was febrile blood cultures were drawn and one of 4 bottles was positive for streptococci He is currently on IV antibiotics and the source appears to be cellulitis associated with his right lower extremity edema which is chronic Initially his white count was 29,000 but with IV antibiotics is now come close to normal at about 10,000 and neutrophil count is also normalized Admit night his temperature was 99.7F but since then he's been afebrile He looks comfortable lies flat in bed at this time no respiratory distress Breath sounds are reduced bilaterally but no rhonchi no crackles Heart sounds are soft and distant 2-D echo shows left atrial hypertrophy, preserved LV systolic function mildly enlarged right ventricle dilated left atrium TSH is normal Past medical history of diabetes dyslipidemia hypertension Suggest Start lisinopril or losartan He was on lisinopril hydrochlorothiazide. I will reinitiate lisinopril 20 mg by mouth daily He has chronic cellulitis with chronic lower extremity edema on the right lower extremity. I doubt if this will ever resolve and therefore low-grade cellulitis and recurrent cellulitis is highly likely following discharge He was very symptomatic the SVT and although he may have come in with an infection initially he had very symptomatic SVT in the ER which is probably the cause of his sudden onset of shortness of breath. It resolved when his SVT terminated He needs an SVT ablation performed since this occurred on carvedilol/drug refractory The risk of performing this as an outpatient after a few weeks is risking recrudescence of low-grade infection in the lower extremities and performing an intravascular procedure At this time he is very stable and is on IV antibiotics and his infection appears controlled His blood pressure is much better controlled His heart failure is best controlled at this time and he is able to lie flat, something that he is not able to do at home for a long time From a medical standpoint this is the best time to tackle his SVT I would recommend holding off on discharge Continuing IV antibiotics Proceeding with an SVT ablation on , by which time he would've received an adequate duration of IV antibiotics Controlling his blood pressure Continuing IV diuresis which would allow him to lie flat during the procedure and minimizes anesthesia risks He should be able to go home within 24 hours of the ablation, likely on Thursday I discussed this with the patient and his . I had discussed this in detail with both of them when I first saw him over the weekend and they're agreeable with the plan I have paged his primary attending and also left a message for him Final impression Symptomatic SVT with sudden onset of shortness of breath, drug refractory despite carvedilol 25 mg twice daily Bacteremia/sepsis likely source cellulitis in the right lower extremity Hypertension with left frontal hypertrophy Chronic lower extremity edema on the right leg with cellulitis, long-standing Adult onset diabetes Morbid obesity Objective - Vital Signs Vital signs: Vital Signs Temp 96.5 F L 10/21/16 16:00 Pulse 60 10/21/16 16:00 Resp 18 10/21/16 16:00 BP 145/70 10/21/16 16:00 Pulse Ox 98 10/21/16 16:00 Intake & Output 10/20/16 10/21/16 10/21/16 18:59 06:59 18:59 Intake Total 696 420 Output Total 380 1000 1050 Balance 316 -1000 -630 Weight 160.8 kg 160.5 kg 160.5 kg Intake: IV 50 Sodium Chloride 0.9% 1, 50 000 ml @ 50 mls/hr IV . Q20H DOUGLAS Rx#:[id number] Intake, IV Titration 50 Amount Sodium Chloride 0.9% 1, 50 000 ml @ 50 mls/hr IV . Q20H DOUGLAS Rx#:[id number] Oral 596 420 Output: Urine 380 1000 1050 Other: Voiding Method Urinal Urinal Urinal # Voids 1 1 - Labs CBC & Chem 7: 10/21/16 05:56 10/21/16 05:56 Labs: Abnormal Lab Results - Last 24 Hours (Table) 10/20/16 10/21/16 10/21/16 Range/Units 20:25 05:56 06:36 Potassium 3.4 L (3.5-5.1) mmol/L BUN 26 H (9-20) mg/dL Glucose 159 H (74-99) mg/dL POC Glucose (mg/dL) 210 H 151 H (75-99) mg/dL Calcium 8.0 L (8.4-10.2) mg/dL 04/18/17 04/18/17 Range/Units 11:39 16:52 Potassium (3.5-5.1) mmol/L BUN (9-20) mg/dL Glucose (74-99) mg/dL POC Glucose (mg/dL) 244 H 277 H (75-99) mg/dL Calcium (8.4-10.2) mg/dL Microbiology - Last 24 Hours (Table) 10/19/16 12:40 Blood Culture - Preliminary Blood No Growth after 48 hours 10/19/16 12:00 Blood Culture - Preliminary Blood No Growth after 48 hours 10/18/16 20:35 Blood Culture - Preliminary Blood No Growth after 48 hours
[2016-10-21 20:45] LABS: Glucose,Whole Blood 218 mg/dL (75-99)
[2016-10-22] MEDS: HEPARIN SODIUM,PORCINE 5,000 UNIT/ML 1 ML VIAL SQ SCH ×4 (00:10→23:39)
[2016-10-22] MEDS: CLINDAMYCIN 900 MG in DEXTROSE 5% IN WATER 50 ML IVPB SCH ×4 (00:15→12:31)
[2016-10-22] MEDS: ceFAZolin 2 GM in SODIUM CHLORIDE 0.9% 100 ML IVPB SCH ×3 (05:33→21:59)
[2016-10-22 06:13] LABS: Glucose,Whole Blood 150 mg/dL (75-99)
[2016-10-22 06:35] LABS: Basophils % (A) 1 %; CH 29.3; CHCM 33.8; Eosinophils # (A) 0.2 k/uL (0-0.7); Eosinophils % (A) 3 %; HCT 37.7 % (39.0-53.0); HDW 2.76; HGB 12.8 gm/dL (13.0-17.5); Luc # (Auto) 0.35; Luc % (Auto) 4; Lymphocytes # (A) 1.9 k/uL (1.0-4.8); Lymphocytes % (A) 22 %; MCH 29.6 pg (25.0-35.0); MCHC 33.9 g/dL (31.0-37.0); MCV 87.1 fL (80.0-100.0); Mean Platelet Volume 7.2; Monocytes # (A) 0.4 k/uL (0-1.0); Monocytes % (A) 5 %; Neutrophils # (A) 5.6 k/uL (1.3-7.7); Neutrophils % (A) 65 %; RBC 4.33 m/uL (4.30-5.90); RDW 14.7 % (11.5-15.5); WBC 8.5 k/uL (3.8-10.6); WBC (Perox) 8.55
[2016-10-22 06:43] LABS: Anion Gap 12 mmol/L; Blood Urea Nitrogen 23 mg/dL (9-20); Calcium 8.1 mg/dL (8.4-10.2); Carbon Dioxide 27 mmol/L (22-30); Chloride 101 mmol/L (98-107); Glucose 134 mg/dL (74-99); Magnesium 1.9 mg/dL (1.6-2.3); Non-African American GFR(MDRD) >60 (>60 ml/min/1.73 sqM); Potassium 3.4 mmol/L (3.5-5.1); Sodium 140 mmol/L (137-145)
[2016-10-22] MEDS: CARVEDILOL 12.5 MG TAB PO SCH (06:55)
[2016-10-22] MEDS: INSULIN LISPRO (humaLOG) 300 UNIT/3 ML VIAL SQ SCH ×7 (06:55→22:00)
[2016-10-22] MEDS: PANTOPRAZOLE 40 MG TABLET PO SCH (06:56)
--- NOTE | 2016-10-22 08:14 | XR ---
EXAMINATION TYPE: XR chest 1V DATE OF EXAM: 10/22/2016 7:15 AM HISTORY: Shortness of breath. COMPARISON: 10/21/2016 TECHNIQUE: Single view of the chest is submitted. FINDINGS: Demonstrated are scattered senescent parenchymal change. There is right perihilar infiltrate which may reflect pneumonia. Correlate clinically and progress st udies are recommended. The heart is stable. Hilar and mediastinal structures are within normal limits. Degenerative changes are seen of the dorsal spine. IMPRESSION: 1. There is right perihilar infiltrate which may reflect pneumonia. Correlate clinically and progres s studies are recommended.
[2016-10-22] MEDS: ASPIRIN 325 MG TAB PO SCH (09:17)
[2016-10-22] MEDS: FUROSEMIDE 40 MG TAB PO SCH ×2 (09:17→17:30)
[2016-10-22] MEDS: LISINOPRIL 20 MG TAB PO SCH (09:19)
[2016-10-22] MEDS: INSULIN GLARGINE 100 UNIT/ML 10 ML VIAL SQ SCH (09:58)
[2016-10-22] MEDS ORDERED: Potassium Replacement Protocol 1 EACH MISC MISCELLANE PRN ×2 (11:17→11:57)
[2016-10-22 11:49] LABS: Glucose,Whole Blood 225 mg/dL (75-99)
--- NOTE | 2016-10-22 12:09 | P.PN ---
Subjective Principal diagnosis: Acute hypoxic respiratory failure Patient is doing well today. No events overnight. Objective - Vital Signs Vital signs: Vital Signs Temp 98.0 F 10/22/16 11:38 Pulse 54 L 10/22/16 11:58 Resp 18 10/22/16 11:38 BP 141/71 10/22/16 11:38 Pulse Ox 96 10/22/16 11:38 Intake & Output 10/21/16 10/22/16 10/22/16 18:59 06:59 18:59 Intake Total 420 340 Output Total 1050 1175 Balance -630 -1175 340 Weight 160.5 kg 160.2 kg Intake: IV 100 Sodium Chloride 0.9% 1, 100 000 ml @ 50 mls/hr IV . Q20H DOUGLAS Rx#:[id number] Oral 420 240 Output: Urine 1050 1175 Other: Voiding Method Urinal Urinal Bedside Commode # Voids 1 - Exam General: The patient is awake and alert, in no distress Eye: there is normal conjunctiva bilaterally. Neck: The neck is supple, there is no JVD. Cardiovascular: Normal S1-S2, no S3-S4, no murmurs. Respiratory: Lungs with mild bibasilar rales Gastrointestinal: Abdomen is soft, nontender Musculoskeletal: There is +1-2 pedal edema With chronic venous insufficiency skin color changes Neurological:. Speech is normal. Skin: Skin is warm and dry - Labs CBC & Chem 7: 10/22/16 05:36 10/22/16 05:36 Labs: Abnormal Lab Results - Last 24 Hours (Table) 10/21/16 10/21/16 10/22/16 Range/Units 16:52 20:42 05:36 Hgb 12.8 L (13.0-17.5) gm/dL Hct 37.7 L (39.0-53.0) % Potassium (3.5-5.1) mmol/L BUN (9-20) mg/dL Glucose (74-99) mg/dL POC Glucose (mg/dL) 277 H 218 H (75-99) mg/dL Calcium (8.4-10.2) mg/dL 10/22/16 10/22/16 10/22/16 Range/Units 05:36 06:11 11:45 Hgb (13.0-17.5) gm/dL Hct (39.0-53.0) % Potassium 3.4 L (3.5-5.1) mmol/L BUN 23 H (9-20) mg/dL Glucose 134 H (74-99) mg/dL POC Glucose (mg/dL) 150 H 225 H (75-99) mg/dL Calcium 8.1 L (8.4-10.2) mg/dL Microbiology - Last 24 Hours (Table) 10/18/16 20:35 Blood Culture - Preliminary Blood No Growth after 72 hours 10/19/16 12:40 Blood Culture - Preliminary Blood No Growth after 48 hours 10/19/16 12:00 Blood Culture - Preliminary Blood No Growth after 48 hours Assessment and Plan Plan: 1. Acute diastolic heart failure exacerbation 2. Community-acquired pneumonia: On broad-spectrum antibiotic. Antibiotic adjusted by infectious disease 3. Severe sepsis without septic shock 4. Bacteremia with gram-positive cocci in chains: repeat blood culture negative to date. Awaiting cultures to finalize. 5. Acute toxo metabolic encephalopathy attributed to #2 or 3 7. Obstructive sleep apnea: CPAP machine at night 7. Type 2 diabetes mellitus: Home insulin dose was reduced during this hospitalization. Would monitor closely. Sliding scale insulin. 8. Chronic venous insufficiency: Encouraged to use compression stockings regularly at home 9. Morbid obesity 10. Symptomatic supraventricular tachycardia now in normal sinus rhythm: Seen and evaluated by EP. Plan for ablation tomorrow. 11. Essential hypertension: Blood pressure well-controlled 12. Mixed hyperlipidemia 13. Acute kidney injury, now resolved. Avoid nephrotoxins. Today, I reviewed his medication list and lab work results. Appreciate information consultant's recommendations. Echocardiogram showed preserved ejection fraction and normal right ventricular systolic pressure. There is severe concentric left ventricular hypertrophy noted. No significant valvular abnormalities. Give 1 dose of IV Lasix today. Repeat lab work in the morning. Replace electrolytes as needed. Patient and his were updated about his current clinical condition. All their questions answered to her satisfaction. Plan to discharge home tomorrow to finish antibiotic course with oral Keflex.
[2016-10-22] MEDS ORDERED: FUROSEMIDE 10 MG/ML 2 ML VIAL IV ONE (12:30)
--- NOTE | 2016-10-22 14:34 | P.PN ---
Subjective Principal diagnosis: CHF/SVT this a 61-year-old gentleman who actually sent to the hospital with symptoms of sudden onset of shortness of breath with associated fever of 100.8. Positive blood culture, currently being treated with antibiotics for cellulitis. Patient was found to be in SVT with a heart rate of 170, treated with IV metoprolol. He was seen in consultation by Dr. Lamb, recommendation is to undergo SVT ablation tomorrow. Echocardiogram with Doppler study was performed which revealed left atrial hypertrophy with preserved left ventricular systolic function and mildly enlarged right ventricle TSH was normal.he is afebrile today, blood pressure 140/70, heart rate 50s to 60s. Objective - Vital Signs Vital signs: Vital Signs Temp 98.0 F 10/22/16 11:38 Pulse 54 L 10/22/16 11:58 Resp 18 10/22/16 11:38 BP 141/71 10/22/16 11:38 Pulse Ox 96 10/22/16 11:38 Intake & Output 10/21/16 10/22/16 10/22/16 18:59 06:59 18:59 Intake Total 420 340 Output Total 1050 1175 Balance -630 -1175 340 Weight 160.5 kg 160.2 kg Intake: IV 100 Sodium Chloride 0.9% 1, 100 000 ml @ 50 mls/hr IV . Q20H DOUGLAS Rx#:[id number] Oral 420 240 Output: Urine 1050 1175 Other: Voiding Method Urinal Urinal Bedside Commode # Voids 1 - Exam PHYSICAL EXAMINATION: HEENT: [Head is atraumatic, normocephalic. Pupils equal, round. Neck is supple. There is no elevated jugular venous pressure.] HEART EXAMINATION: heart S1-S2 a systolic ejection murmur is heard. CHEST EXAMINATION:lungs reveal crackles to bilateral bases ABDOMEN: [ Soft, nontender. Bowel sounds are heard. No organomegaly noted]. EXTREMITIES:1+ peripheral pulses with bilateral lower extremity edema and evidence of cellulitis. NEUROLOGIC [patient is awake, alert and oriented -3.] . - Labs CBC & Chem 7: 10/22/16 05:36 10/22/16 05:36 Labs: Abnormal Lab Results - Last 24 Hours (Table) 10/21/16 10/21/16 10/22/16 Range/Units 16:52 20:42 05:36 Hgb 12.8 L (13.0-17.5) gm/dL Hct 37.7 L (39.0-53.0) % Potassium (3.5-5.1) mmol/L BUN (9-20) mg/dL Glucose (74-99) mg/dL POC Glucose (mg/dL) 277 H 218 H (75-99) mg/dL Calcium (8.4-10.2) mg/dL 10/22/16 10/22/16 10/22/16 Range/Units 05:36 06:11 11:45 Hgb (13.0-17.5) gm/dL Hct (39.0-53.0) % Potassium 3.4 L (3.5-5.1) mmol/L BUN 23 H (9-20) mg/dL Glucose 134 H (74-99) mg/dL POC Glucose (mg/dL) 150 H 225 H (75-99) mg/dL Calcium 8.1 L (8.4-10.2) mg/dL Microbiology - Last 24 Hours (Table) 10/19/16 12:00 Blood Culture - Preliminary Blood No Growth after 72 hours 10/18/16 20:35 Blood Culture - Preliminary Blood No Growth after 72 hours 10/19/16 12:40 Blood Culture - Preliminary Blood No Growth after 48 hours Assessment and Plan (1) Diastolic CHF, acute on chronic Status: Acute (2) SVT (supraventricular tachycardia) Status: Acute (3) Cellulitis Status: Acute (4) Diabetes Status: Acute (5) Hyperlipidemia Status: Acute (6) Hypertension Status: Acute (7) Sleep apnea syndrome Status: Acute Plan: Cardiology's perspective, we'll recommend to continue current medications. SVT ablation scheduled for tomorrow. DNP note has been reviewed, I agree with a documented findings and plan of care. Patient was seen and examined.
--- NOTE | 2016-10-22 16:08 | P.PN ---
Subjective Progress note dated 10/20/2016 61-year-old male with a history of multiple medical problems including sleep apnea syndrome valvular heart disease diabetes hyperlipidemia obesity. Does have a history of heart failure. Seen by bracer out of [place] who was sometimes comes to [place] and/or [facility]. Anyway the patient presents with complaints of shortness of breath. He was found on chest x-ray and by labs and by examination to have heart failure. Chest x-ray this morning is much improved. He was initially in the ICU and was sound transferred out this morning before had a chance to see me in the ICU.Dr. Silva did the consult yesterday. His impression was the patient had acute pulmonary edema with hypoxemic respiratory failure acute sepsis with bacteremia although the source was not clear possibly cellulitis of the right lower extremity possible endocarditis multiple comorbidities including sleep apnea syndrome morbid obesity type 2 diabetes hypertension and hyperlipidemia. He ordered number different things noted in his consultation. Again I'm happy to report that the patient's feeling much improved. He was stable to be moved out of the ICU this morning. Progress note dated 10/21/2016 61-year-old male who was seen initially over the week and by my partner. He came with a history of CHF. Has history of sleep apnea syndrome valvular heart disease diabetes hyperlipidemia and obesity. Also has a history of chronic CHF. Sees a bracer out of [place]. Anyway the patient is feeling much better. He was in the unit Thursday morning but we saw him actually after he got transferred off the unit to the sixth floor. The patient does have a history of multiple other medical problems as mentioned above and also mentioned in the progress note from yesterday. Anyway he is feeling much improved. Chest x-ray is much improved. Much less short of breath. Possible discharge today he is not sure. Progress note dated 10/22/2016 61-year-old male admitted initially to the ICU for heart failure. He also has a history of SVT. He apparently is going to have a ablation done. The patient was going to be discharged home and brought back. Instead, the plan is to do it here in the hospital before he leaves. In addition to the CHF and valvular heart disease as well as sleep apnea obesity and diabetes, his a history of hyperlipidemia. He used to see a bracer and [place] about probably will transfer his care someplace else. From the pulmonary standpoint feeling well. Objective - Vital Signs Vital signs: Vital Signs Temp 98.0 F 10/22/16 11:38 Pulse 54 L 10/22/16 11:58 Resp 18 10/22/16 11:38 BP 141/71 10/22/16 11:38 Pulse Ox 96 10/22/16 11:38 Intake & Output 10/21/16 10/22/16 10/22/16 18:59 06:59 18:59 Intake Total 420 580 Output Total 1050 1175 1600 Balance -630 -1175 -1020 Weight 160.5 kg 160.2 kg Intake: IV 100 Sodium Chloride 0.9% 1, 100 000 ml @ 50 mls/hr IV . Q20H DOUGLAS Rx#:[id number] Oral 420 480 Output: Urine 1050 1175 1600 Other: Voiding Method Urinal Urinal Bedside Commode # Voids 1 - Exam No acute distress, oriented 3. HEENT examination is grossly unremarkable. Mucous membranes are moist. No oral lesion. Neck supple. Full range of motion. Neck veins are flat. Cardiovascular examination reveals distant heart sound. There is a grade 2/6 systolic murmur heard throughout the entire precordium. No S3 or S4. Pulmonary examination reveals some bibasilar crackles. No wheezes or rhonchi. Abdomen is obese. Bowel sounds are heard. Extremities are intact. There is evidence of lower extremity edema. Today patient is some cellulitis erythema and swelling of the left lower extremity as well as the right lower extremity but the right side seems worse. Dermatologically there are some changes of chronic venous stasis and neurologic examination is grossly nonfocal. - Labs CBC & Chem 7: 10/22/16 05:36 10/22/16 05:36 Labs: Abnormal Lab Results - Last 24 Hours (Table) 10/21/16 10/21/16 10/22/16 Range/Units 16:52 20:42 05:36 Hgb 12.8 L (13.0-17.5) gm/dL Hct 37.7 L (39.0-53.0) % Potassium (3.5-5.1) mmol/L BUN (9-20) mg/dL Glucose (74-99) mg/dL POC Glucose (mg/dL) 277 H 218 H (75-99) mg/dL Calcium (8.4-10.2) mg/dL 10/22/16 10/22/16 10/22/16 Range/Units 05:36 06:11 11:45 Hgb (13.0-17.5) gm/dL Hct (39.0-53.0) % Potassium 3.4 L (3.5-5.1) mmol/L BUN 23 H (9-20) mg/dL Glucose 134 H (74-99) mg/dL POC Glucose (mg/dL) 150 H 225 H (75-99) mg/dL Calcium 8.1 L (8.4-10.2) mg/dL Microbiology - Last 24 Hours (Table) 10/19/16 12:40 Blood Culture - Preliminary Blood No Growth after 72 hours 10/19/16 12:00 Blood Culture - Preliminary Blood No Growth after 72 hours 10/18/16 20:35 Blood Culture - Preliminary Blood No Growth after 72 hours Assessment and Plan (1) CHF (congestive heart failure) Status: Acute (2) Diabetes Status: Acute (3) Cellulitis Status: Acute (4) Sleep apnea syndrome Status: Acute (5) Obesity Status: Acute (6) Hypertension Status: Acute (7) Hyperlipidemia Status: Acute (8) Acute respiratory failure Status: Acute (9) Flash pulmonary edema Status: Acute Plan: Plan dated 10/20/2016 The patient seems be doing relatively well. We'll continue the medications that Dr. Silva recommended. He is currently on appropriate diuretics and other medications to improve his heart failure. He has seen the bracer here. His breathing is much improved. Denies any history of any intrinsic lung disease. Does have history of sleep apnea syndrome. Again the patient seemed be much better. We'll continue to follow. Hopefully discharge in next day or 2. Plan dated 10/21/2016 The patient seemed be doing a lot better. Much less short of breath. His chest x-ray shows no active cardiopulmonary disease. He mentions that he may be discharged home. I'm not sure about that. The patient will follow-up with his primary physician. Used to see Dr. Colbert here in [facility] but apparently got Black listed there. He may be going back to his bracer at [facility]. Doesn't want to see his bracer in [place] anymore. Plan dated 10/22/2016 The patient seemed be doing well from the pulmonary standpoint. Not complaining of any shortness of breath. Likewise, no pneumonic complaints including coughing wheezing phlegm production fever chills or coughing up any blood. His most recent chest x-ray suggests a possible right perihilar infiltrate but I suppose suspect is more likely asymmetric pulmonary edema more than anything else. Ablation was apparently planned for tomorrow. We'll continue to follow. Prognosis is guarded. Time with Patient: Less than 30
[2016-10-22 17:08] LABS: Glucose,Whole Blood 149 mg/dL (75-99)
[2016-10-22] MEDS: POTASSIUM CHLORIDE ER 20 MEQ TAB.ER PO SCH ×2 (17:30→18:49)
[2016-10-22] MEDS: SODIUM CHLORIDE 0.9% 1,000 ML IV SCH (17:34)
[2016-10-22] MEDS ORDERED: LISINOPRIL 20 MG TAB PO ONE (18:00)
--- NOTE | 2016-10-22 18:58 | PN ---
DATE OF SERVICE: 10/22/2016 REASON FOR FOLLOWUP: Right lower extremity cellulitis and strep bacteremia. INTERVAL HISTORY: The patient is afebrile. His breathing has slightly improved. Denies significant chest pain. No cough. No abdominal pain. Did have slight diarrhea. On examination, blood pressure is 141/71 with a pulse of 55, temperature 98. He is 96% on room air. General description is a middle-aged male lying in bed in no distress. RESPIRATORY SYSTEM: Unlabored breathing. Clear to auscultation anteriorly. HEART: S1, S2. Regular rate and rhythm. ABDOMEN: Soft. No tenderness. LABS: Hemoglobin is 12.9, white count 8.5, BUN of 23, creatinine 1.10. DIAGNOSTIC IMPRESSION AND PLAN: Patient with streptococcal bacteremia. Source is right lower extremity cellulitis. The patient will continue cefazolin. Because of his diarrhea, will go ahead discontinue the clindamycin. Patient advised to increase his probiotic and yogurt intake. If any further diarrhea, will check stool for C difficile and treat if positive. Add probiotics.
[2016-10-22] MEDS ORDERED: INSULIN GLARGINE 100 UNIT/ML 10 ML VIAL SQ SCH (21:00)
[2016-10-22 21:05] LABS: Glucose,Whole Blood 151 mg/dL (75-99)
[2016-10-23] MEDS ORDERED: HYDROmorphone 1 MG/ML 1 ML SYRINGE IVP PRN (00:17)
[2016-10-23] MEDS: ceFAZolin 2 GM in SODIUM CHLORIDE 0.9% 100 ML IVPB SCH ×3 (06:05→22:36)
[2016-10-23 06:18] LABS: Basophils # (A) 0.1 k/uL (0-0.2); Basophils % (A) 1 %; CH 29.6; CHCM 33.1; Eosinophils # (A) 0.3 k/uL (0-0.7); Eosinophils % (A) 3 %; HCT 42.2 % (39.0-53.0); HDW 2.56; HGB 13.8 gm/dL (13.0-17.5); Luc # (Auto) 0.28; Luc % (Auto) 2; Lymphocytes # (A) 1.7 k/uL (1.0-4.8); Lymphocytes % (A) 14 %; MCH 29.2 pg (25.0-35.0); MCHC 32.6 g/dL (31.0-37.0); MCV 89.8 fL (80.0-100.0); Mean Platelet Volume 6.8; Monocytes # (A) 0.7 k/uL (0-1.0); Monocytes % (A) 5 %; Neutrophils # (A) 9.4 k/uL (1.3-7.7); Neutrophils % (A) 76 %; RDW 15.2 % (11.5-15.5); WBC 12.4 k/uL (3.8-10.6)
[2016-10-23 06:34] LABS: Glucose,Whole Blood 158 mg/dL (75-99)
[2016-10-23 06:35] LABS: Anion Gap 12 mmol/L; Blood Urea Nitrogen 20 mg/dL (9-20); Calcium 8.5 mg/dL (8.4-10.2); Carbon Dioxide 28 mmol/L (22-30); Chloride 100 mmol/L (98-107); Glucose 178 mg/dL (74-99); Magnesium 1.8 mg/dL (1.6-2.3); Non-African American GFR(MDRD) >60 (>60 ml/min/1.73 sqM); Phosphorous 3.6 mg/dL (2.5-4.5); Potassium 3.8 mmol/L (3.5-5.1); Sodium 140 mmol/L (137-145)
[2016-10-23] MEDS: INSULIN LISPRO (humaLOG) 300 UNIT/3 ML VIAL SQ SCH ×6 (06:41→21:30)
[2016-10-23] MEDS: LISINOPRIL 20 MG TAB PO SCH (06:44)
[2016-10-23] MEDS: ASPIRIN 325 MG TAB PO SCH (06:44)
[2016-10-23] MEDS: PANTOPRAZOLE 40 MG TABLET PO SCH (06:44)
[2016-10-23] MEDS ORDERED: INSULIN GLARGINE 100 UNIT/ML 10 ML VIAL SQ SCH ×2 (09:00→21:00)
[2016-10-23] MEDS: FUROSEMIDE 40 MG TAB PO SCH (09:16)
[2016-10-23] MEDS ORDERED: VANCOMYCIN 1,000 MG in SODIUM CHLORIDE 0.9% 250 ML IVPB STA (09:28)
--- NOTE | 2016-10-23 10:24 | XR ---
EXAMINATION TYPE: XR chest 1V DATE OF EXAM: 10/23/2016 9:36 AM COMPARISON: 10/22/2016 INDICATION: Shortness of breath TECHNIQUE: Single frontal view of the chest is obtained. FINDINGS: The heart size is normal. The pulmonary vasculature is normal. The lungs are clear. IMPRESSION: 1. No acute pulmonary process.
[2016-10-23] MEDS ORDERED: ACETAMINOPHEN TAB 325 MG TAB PO PRN (11:02)
[2016-10-23] MEDS ORDERED: ACETAMINOPHEN IV (For NPO) 1,000 MG in EMPTY BAG 1 BAG IVPB ONE (11:02)
[2016-10-23] MEDS ORDERED: HYDROcodone/APAP 5-325MG 1 EACH TAB PO PRN (11:02)
[2016-10-23] MEDS ORDERED: SUCCINYLCHOLINE CHLORIDE VIAL 200 MG/10 ML VIAL IV ONE (11:37)
[2016-10-23] MEDS ORDERED: IV FLUID CONTINUATION 1,000 ML IV ONE (11:37)
[2016-10-23] MEDS ORDERED: PROPOFOL 10 MG/ML 20 ML VIAL IV ONE (11:37)
[2016-10-23] MEDS ORDERED: ROCURONIUM BROMIDE 10 MG/ML 10 ML VIAL IV ONE (11:37)
[2016-10-23] MEDS ORDERED: METOPROLOL TARTRATE 5 MG/5 ML VIAL IVP ONE ×2 (11:37→13:40)
[2016-10-23] MEDS ORDERED: MIDAZOLAM 2 MG/2 ML VIAL ONE (11:37)
[2016-10-23] MEDS ORDERED: ISOPROTERENOL 250 MCG/1.25 ML SYR IV ONE (11:37)
[2016-10-23] MEDS ORDERED: ADENOSINE 3 MG/ML 2 ML VIAL IVP ONE (11:37)
[2016-10-23] MEDS ORDERED: LIDOCAINE 1% INJ 10MG/ML (20 ML MDV) ONE (11:37)
[2016-10-23] MEDS ORDERED: PHENYLEPHRINE-0.9% NACL SYG 1 MG/10 ML SYRINGE ONE (11:37)
[2016-10-23] MEDS ORDERED: fentaNYL (PF) 50 MCG/ML 2 ML AMP ONE (11:37)
[2016-10-23] MEDS ORDERED: LIDOCAINE 2% INJ 20 MG/ML SQ ONE ×2 (12:09→12:19)
--- NOTE | 2016-10-23 12:31 | P.PN ---
Subjective Principal diagnosis: Acute hypoxic respiratory failure Patient is scheduled for cardioversion today. Objective - Vital Signs Vital signs: Vital Signs Temp 98.8 F 10/23/16 08:00 Pulse 72 10/23/16 08:00 Resp 18 10/23/16 08:00 BP 152/68 10/23/16 08:00 Pulse Ox 94 L 10/23/16 08:00 Intake & Output 10/22/16 10/23/16 10/23/16 18:59 06:59 18:59 Intake Total 820 740 Output Total 1600 1350 200 Balance -780 -610 -200 Weight 160.5 kg Intake: IV 100 Sodium Chloride 0.9% 1, 100 000 ml @ 50 mls/hr IV . Q20H DOUGLAS Rx#:[id number] Intake, IV Titration 340 Amount Clindamycin 900 mg In 100 Dextrose 5% in Water 50 ml @ 100 mls/hr IVPB Q8HR DOUGLAS Rx#:[id number] Sodium Chloride 0.9% 1, 240 000 ml @ 20 mls/hr IV . Q24H DOUGLAS Rx#:[id number] Oral 720 400 Output: Urine 1600 1350 200 Other: Voiding Method Bedside Commode Toilet Toilet Urinal Urinal # Voids 1 1 - Labs CBC & Chem 7: 10/23/16 05:49 10/23/16 05:49 Labs: Abnormal Lab Results - Last 24 Hours (Table) 10/22/16 10/22/16 10/23/16 Range/Units 16:51 21:03 05:49 WBC 12.4 H (3.8-10.6) k/uL Neutrophils # 9.4 H (1.3-7.7) k/uL Glucose (74-99) mg/dL POC Glucose (mg/dL) 149 H 151 H (75-99) mg/dL 10/23/16 10/23/16 Range/Units 05:49 06:32 WBC (3.8-10.6) k/uL Neutrophils # (1.3-7.7) k/uL Glucose 178 H (74-99) mg/dL POC Glucose (mg/dL) 158 H (75-99) mg/dL Microbiology - Last 24 Hours (Table) 10/18/16 20:35 Blood Culture - Preliminary Blood No Growth after 96 hours 10/19/16 12:40 Blood Culture - Preliminary Blood No Growth after 72 hours 10/19/16 12:00 Blood Culture - Preliminary Blood No Growth after 72 hours Assessment and Plan Plan: 1. Acute diastolic heart failure exacerbation: Lasix switched to oral. Patient 's been getting extra doses of IV Lasix 20 mg once a day for the past couple of days 2. Community-acquired pneumonia: On broad-spectrum antibiotic. Antibiotic adjusted by infectious disease 3. Severe sepsis without septic shock 4. Bacteremia with gram-positive cocci in chains: repeat blood culture negative to date. Awaiting cultures to finalize. 5. Acute toxo metabolic encephalopathy attributed to #2 or 3 7. Obstructive sleep apnea: CPAP machine at night 7. Type 2 diabetes mellitus: Home insulin dose was reduced during this hospitalization. Would monitor closely. Sliding scale insulin. 8. Chronic venous insufficiency: Encouraged to use compression stockings regularly at home 9. Morbid obesity 10. Symptomatic supraventricular tachycardia now in normal sinus rhythm: Seen and evaluated by EP. Plan for ablation tomorrow. 11. Essential hypertension: Blood pressure well-controlled 12. Mixed hyperlipidemia 13. Acute kidney injury, now resolved. Avoid nephrotoxins. Today, I reviewed his medication list and lab work results. Appreciate networks computer consultant's recommendations. Echocardiogram showed preserved ejection fraction and normal right ventricular systolic pressure. There is severe concentric left ventricular hypertrophy noted. No significant valvular abnormalities. Patient is scheduled for cardioversion today. We will continue telemetry monitoring. Repeat lab work in the morning. Replace electrolytes as needed. Plan to discharge home tomorrow to finish antibiotic course with oral Keflex.
[2016-10-23] MEDS ORDERED: ADENOSINE 3 MG/ML 4 ML VIAL IVP ONE (12:56)
[2016-10-23] MEDS ORDERED: DEXTROSE 5% IN WATER 100 ML with AMIODARONE 150 MG IV ONE ×2 (13:04→13:56)
[2016-10-23] MEDS ORDERED: DEXTROSE 5% IN WATER 100 ML with AMIODARONE 150 MG IV STA (13:41)
[2016-10-23] MEDS ORDERED: SODIUM CHLORIDE 0.9% 1,000 ML IV ONE (13:44)
--- NOTE | 2016-10-23 13:45 | P.PCN ---
Preoperative Diagnosis: EP procedure Please see full dictation separately In summary this is a 61-year-old male patient with a BMI of 48, hypertension and severe left frontal hypertrophy who presented with 1. Fever, increased white count and bacteremia/sepsis with the source most likely in the right lower extremity which is edematous chronically with cellulitis he is on IV antibiotics for 2. He also experienced sudden onset of shortness of breath for/pulmonary edema type picture and he is found to be in a tachycardia at 160 - 170 beats a minute. This terminated with IV metoprolol. My clinical impression is that he had loss of atrial kick secondary to supraventricular tachycardia in the setting of underlying severe LVH with diastolic dysfunction/diastolic heart failure, resulting in sudden onset of shortness of breath After IV antibiotics and normalization of white count and being afebrile for greater than 48 hours he was taken to the EP lab for diagnostic EP study with a consideration for AV ester reentry as the mechanism of the tachycardia However, diagnostic EP study revealed a rapid atrial tachycardia with a cycle length of 200-210 ms in the A. fib range that was initiated spontaneously on Isuprel consistent with the fact that he had initially terminated after giving IV Lopressor This was discussed with his Impression Organized atrial fibrillation/atrial tachycardia, cycle length of about 200 ms with RVR Severe LVH with diastolic heart failure and preserved LV systolic function Suggest I would not recommend any A. fib ablation Start amiodarone 400 mg by mouth daily for one month and reduce to 200 mg by mouth daily Increase carvedilol to 37.5 mg twice daily and if possible 50 mg twice daily Discontinue hydrochlorothiazide increase Lasix Add spironolactone Continue lisinopril but without hydrochlorothiazide Discussed with Dr. Agrawal and Dr. Robins Disposition: floor
--- NOTE | 2016-10-23 14:31 | CE ---
DATE OF SERVICE: Mr. Angel is admitted with some nausea, shortness of breath and he was found to be in supraventricular tachycardia between 160/70 beats a minute, which actually terminated with IV metoprolol in the ER. His breathing was improved thereafter but he is found also to be septic, was also found to have 1 out 4 positive blood cultures, the likely source being his skin in the right lower extremity, streptococcus. He is brought in for diagnostic EP study after IV antibiotics and normalization of white count remaining afebrile. Patient is brought to the EP lab in a fasting state, written informed consent was obtained prior to the procedure. The left shoulder area was prepped and draped as per protocol and 1% lidocaine was used for local anesthesia. A 6 [place] sheath was placed in the left axillary vein, via this, decapolar catheter was positioned in the coronary sinus for coronary sinus pacing and recording. The right and left groins were prepped and draped as per protocol and venous sheaths were placed in the right to left femoral veins, and via these, diagnostic catheters were positioned in the right heart (high right atrial catheter, HIS bundle catheter, LV catheter). Baseline measurements were as follows: Sinus cycle length 892 ms, ND interval 180 ms, QRS 106 ms, QT 463 ms. AH interval 103 ms, HV interval 35 ms. Sinus node recovery times at 600, 500 and 400 ms were 1228, 1273 and 1231 ms, corresponding corrected sinus recovery times were within normal limits. AV node Wenckebach block 340 ms, VA Wenckebach block 630 ms. There was antegrade slow pathway conduction noted, poor retrograde AV node conduction. Isuprel was started, VA Wenckebach block improved to 350 ms. Thereafter, comparison pacing was performed and ester response was noted. On Isuprel spontaneously the patient developed atrial tachycardia with RVR. This tachycardia had a very short cycle length of about 200 ms in the A.fib range with slight irregularity between 190 and 210 ms, concentric activation in the coronary sinus. Therefore no SVT ablation was performed, no defibrillation was performed in view of his morbid obesity and severe left ventricular hypertrophy. IV amiodarone was started and later he underwent electrical cardioversion. PLAN: 1. Oral amiodarone 400 mg p.o. daily for one month and then reduce to 200 mg daily. 2. Increase carvedilol to 37.5 mg twice daily since when he came to the emergency room, he was sensitive to ( ), responded to IV Lopressor. 3. Add spironolactone 25 mg p.o. daily, stop oral potassium, stop hydrochlorothiazide. Continue lisinopril 20 mg p.o. daily, increase carvedilol. All catheters were normal. Patient was transferred back to telemetry after extubation. PROCEDURES PERFORMED: Comprehensive diagnostic EP study, CS pacing and recording program stimulation after Isuprel. FINAL RESULT: 1. Normal sinus node function, normal atrioventricular node function, evidence of antegrade slow pathway conduction. 2. Spontaneous very easily inducible rapid atrial tachycardia/atrial fibrillation, cycle length of about 200 ms, slightly irregular. PLAN: Oral anticoagulants in addition to above changes.
[2016-10-23 15:06] LABS: Glucose,Whole Blood 199 mg/dL (75-99)
[2016-10-23] MEDS: AMIODARONE 450 MG in DEXTROSE 5% IN WATER 250 ML IV SCH ×4 (15:09→21:05)
[2016-10-23] MEDS: SPIRONOLACTONE 25 MG TAB PO SCH (15:50)
[2016-10-23] MEDS: AMIODARONE 200 MG TAB PO SCH ×2 (15:50→22:36)
[2016-10-23] MEDS: HEPARIN SODIUM,PORCINE 5,000 UNIT/ML 1 ML VIAL SQ SCH ×3 (16:12→23:41)
[2016-10-23 16:34] LABS: Glucose,Whole Blood 197 mg/dL (75-99)
[2016-10-23] MEDS: CARVEDILOL 12.5 MG TAB PO SCH (16:36)
[2016-10-23] MEDS: metFORMIN 500 MG TAB PO SCH (16:37)
--- NOTE | 2016-10-23 16:42 | P.PN ---
Subjective Progress note dated 10/20/2016 61-year-old male with a history of multiple medical problems including sleep apnea syndrome valvular heart disease diabetes hyperlipidemia obesity. Does have a history of heart failure. Seen by candles pourer out of [place] who was sometimes comes to [place] and/or [facility]. Anyway the patient presents with complaints of shortness of breath. He was found on chest x-ray and by labs and by examination to have heart failure. Chest x-ray this morning is much improved. He was initially in the ICU and was sound transferred out this morning before had a chance to see me in the ICU.Dr. Silva did the consult yesterday. His impression was the patient had acute pulmonary edema with hypoxemic respiratory failure acute sepsis with bacteremia although the source was not clear possibly cellulitis of the right lower extremity possible endocarditis multiple comorbidities including sleep apnea syndrome morbid obesity type 2 diabetes hypertension and hyperlipidemia. He ordered number different things noted in his consultation. Again I'm happy to report that the patient's feeling much improved. He was stable to be moved out of the ICU this morning. Progress note dated 10/21/2016 61-year-old male who was seen initially over the week and by my partner. He came with a history of CHF. Has history of sleep apnea syndrome valvular heart disease diabetes hyperlipidemia and obesity. Also has a history of chronic CHF. Sees a candles pourer out of [place]. Anyway the patient is feeling much better. He was in the unit Thursday morning but we saw him actually after he got transferred off the unit to the sixth floor. The patient does have a history of multiple other medical problems as mentioned above and also mentioned in the progress note from yesterday. Anyway he is feeling much improved. Chest x-ray is much improved. Much less short of breath. Possible discharge today he is not sure. Progress note dated 10/22/2016 61-year-old male admitted initially to the ICU for heart failure. He also has a history of SVT. He apparently is going to have a ablation done. The patient was going to be discharged home and brought back. Instead, the plan is to do it here in the hospital before he leaves. In addition to the CHF and valvular heart disease as well as sleep apnea obesity and diabetes, his a history of hyperlipidemia. He used to see a candles pourer and [place] about probably will transfer his care someplace else. From the pulmonary standpoint feeling well. Progress note dated 10/23/2016 61-year-old male who was initially admitted to the ICU for heart failure. He also has a history of supraventricular tachycardia. He was going to be discharged home but instead they decided to keep him for an ablation. The patient is doing reasonably well. The patient states that he is not having any chest pain or shortness of breath. Feels reasonably good. No fever no chills. No nausea vomiting or diarrhea. Uses a candles pourer and [place]. Has a history of heart failure valvular heart disease sleep apnea obesity diabetes hyperlipidemia and SVT. Will probably translate his cardiac care to [facility] year- round. Use also see a candles pourer at [facility]. From the pulmonary standpoint doing reasonably well. Objective - Vital Signs Vital signs: Vital Signs Temp 97.8 F 10/23/16 16:05 Pulse 65 10/23/16 15:50 Resp 17 10/23/16 16:20 BP 110/58 10/23/16 16:20 Pulse Ox 94 L 10/23/16 16:20 Intake & Output 10/22/16 10/23/16 10/23/16 18:59 06:59 18:59 Intake Total 846 311 3461 Output Total 1600 1350 950 Balance -780 -610 203 Weight 160.5 kg Intake: IV 100 1153 Sodium Chloride 0.9% 1, 100 000 ml @ 50 mls/hr IV . Q20H [facility] Rx#:[id number] Intake, IV Titration 340 Amount Clindamycin 900 mg In 100 Dextrose 5% in Water 50 ml @ 100 mls/hr IVPB Q8HR [facility] Rx#:[id number] Sodium Chloride 0.9% 1, 240 000 ml @ 20 mls/hr IV . Q24H [facility] Rx#:[id number] Oral 720 400 Output: Urine 1600 1350 950 Other: Voiding Method Bedside Commode Toilet Toilet Urinal Urinal # Voids 1 1 - Exam No acute distress, oriented 3. HEENT examination is grossly unremarkable. Mucous membranes are moist. No oral lesion. Neck supple. Full range of motion. Neck veins are flat. Cardiovascular examination reveals distant heart sound. There is a grade 2/6 systolic murmur heard throughout the entire precordium. No S3 or S4. Pulmonary examination reveals some bibasilar crackles. No wheezes or rhonchi. Abdomen is obese. Bowel sounds are heard. Extremities are intact. There is evidence of lower extremity edema. Today patient is some cellulitis erythema and swelling of the left lower extremity as well as the right lower extremity but the right side seems worse. Dermatologically there are some changes of chronic venous stasis. Neurologic examination is grossly nonfocal. - Labs CBC & Chem 7: 10/23/16 05:49 10/23/16 05:49 Labs: Abnormal Lab Results - Last 24 Hours (Table) 10/22/16 10/22/16 10/23/16 Range/Units 16:51 21:03 05:49 WBC 12.4 H (3.8-10.6) k/uL Neutrophils # 9.4 H (1.3-7.7) k/uL Glucose (74-99) mg/dL POC Glucose (mg/dL) 149 H 151 H (75-99) mg/dL 10/23/16 10/23/16 10/23/16 Range/Units 05:49 06:32 15:02 WBC (3.8-10.6) k/uL Neutrophils # (1.3-7.7) k/uL Glucose 178 H (74-99) mg/dL POC Glucose (mg/dL) 158 H 199 H (75-99) mg/dL 10/23/16 Range/Units 16:26 WBC (3.8-10.6) k/uL Neutrophils # (1.3-7.7) k/uL Glucose (74-99) mg/dL POC Glucose (mg/dL) 197 H (75-99) mg/dL Microbiology - Last 24 Hours (Table) 10/19/16 12:40 Blood Culture - Preliminary Blood No Growth after 96 hours 10/19/16 12:00 Blood Culture - Preliminary Blood No Growth after 96 hours 10/18/16 20:35 Blood Culture - Preliminary Blood No Growth after 96 hours Assessment and Plan (1) CHF (congestive heart failure) Status: Acute (2) Diabetes Status: Acute (3) Cellulitis Status: Acute (4) Sleep apnea syndrome Status: Acute (5) Obesity Status: Acute (6) Hypertension Status: Acute (7) Hyperlipidemia Status: Acute (8) Acute respiratory failure Status: Acute (9) Flash pulmonary edema Status: Acute Plan: Plan dated 10/20/2016 The patient seems be doing relatively well. We'll continue the medications that Dr. Silva recommended. He is currently on appropriate diuretics and other medications to improve his heart failure. He has seen the candles pourer here. His breathing is much improved. Denies any history of any intrinsic lung disease. Does have history of sleep apnea syndrome. Again the patient seemed be much better. We'll continue to follow. Hopefully discharge in next day or 2. Plan dated 10/21/2016 The patient seemed be doing a lot better. Much less short of breath. His chest x-ray shows no active cardiopulmonary disease. He mentions that he may be discharged home. I'm not sure about that. The patient will follow-up with his primary physician. Used to see Dr. Colbert here in [facility] but apparently got Black listed there. He may be going back to his candles pourer at [facility]. Doesn't want to see his candles pourer in [place] anymore. Plan dated 10/22/2016 The patient seemed be doing well from the pulmonary standpoint. Not complaining of any shortness of breath. Likewise, no pneumonic complaints including coughing wheezing phlegm production fever chills or coughing up any blood. His most recent chest x-ray suggests a possible right perihilar infiltrate but I suppose suspect is more likely asymmetric pulmonary edema more than anything else. Ablation was apparently planned for tomorrow. We'll continue to follow. Prognosis is guarded. Plan dated 10/23/2016 The patient seemed be doing relatively well from the pulmonary standpoint. The patient not have any cough or phlegm production. Is improved really has improved as well. The plans are for an ablation today. The patient otherwise has no major complaints. We'll probably switch his cardiac care to the [facility]. Used to see Dr. Rodriguez up in [place] but does not apparently like that anymore. Something the abdomen. Anyway the patient is relatively stable from the pulmonary standpoint. Time with Patient: Less than 30
[2016-10-23] MEDS: SODIUM CHLORIDE 0.9% 1,000 ML IV SCH (17:39)
[2016-10-23 20:25] LABS: Glucose,Whole Blood 212 mg/dL (75-99)
[2016-10-23 21:17] VITALS: RESP 16
[2016-10-24 05:50] LABS: Glucose,Whole Blood 124 mg/dL (75-99)
[2016-10-24] MEDS: ceFAZolin 2 GM in SODIUM CHLORIDE 0.9% 100 ML IVPB SCH ×2 (06:00→12:40)
[2016-10-24] MEDS: INSULIN LISPRO (humaLOG) 300 UNIT/3 ML VIAL SQ SCH ×4 (06:42→12:41)
[2016-10-24] MEDS: PANTOPRAZOLE 40 MG TABLET PO SCH (06:49)
[2016-10-24] MEDS: metFORMIN 500 MG TAB PO SCH (06:49)
[2016-10-24] MEDS: CARVEDILOL 12.5 MG TAB PO SCH (06:49)
--- NOTE | 2016-10-24 08:21 | P.PN ---
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 I did request this from the [facility] but I haven't seen it arrive yet. I would suggest Increasing carvedilol to 37.5 mg twice daily and if need be 50 mrem twice daily for rate control and blood pressure control Amiodarone 400 mg once daily for a month Amiodarone should be reduced to 200 mg by mouth daily thereafter for the next few months and if possible to reduce it further 100 mg daily He needs to be an anticoagulation and therefore dual therapy with an anticoagulant and Plavix should suffice and also minimize risk of bleeding, rather than triple therapy Hydrochlorothiazide has been discontinued Spironolactone was added for heart failure, diastolic Lasix to continue Lisinopril to continue
[2016-10-24 08:22] VITALS: PULSE 60; TEMP 97.5
[2016-10-24] MEDS: LISINOPRIL 20 MG TAB PO SCH (08:22)
[2016-10-24] MEDS: HEPARIN SODIUM,PORCINE 5,000 UNIT/ML 1 ML VIAL SQ SCH (08:22)
[2016-10-24] MEDS: AMIODARONE 200 MG TAB PO SCH (08:22)
[2016-10-24] MEDS: SPIRONOLACTONE 25 MG TAB PO SCH (08:23)
[2016-10-24] MEDS ORDERED: FUROSEMIDE 40 MG TAB PO SCH (09:00)
[2016-10-24] MEDS ORDERED: ATORVASTATIN 40 MG TAB PO SCH (09:00)
[2016-10-24] MEDS ORDERED: ASPIRIN 325 MG TAB PO SCH (09:00)
[2016-10-24] MEDS ORDERED: CLOPIDOGREL 75 MG TAB PO SCH (09:00)
[2016-10-24] MEDS ORDERED: INSULIN GLARGINE 100 UNIT/ML 10 ML VIAL SQ SCH (09:00)
--- NOTE | 2016-10-24 10:19 | PN ---
DATE OF SERVICE: 10/23/2016 Reason for followup is strep bacteremia with lower extremity cellulitis. INTERVAL HISTORY: The patient is afebrile. The patient is status post EP procedure done by Dr. Johnson Lamb. The patient tolerated the procedure. He noticed to have more swelling in his right leg as Moreno wrap has not been applied. denies pain in the leg. Patient denies any significant chest pain or cough. No abdominal pain or any diarrhea. On examination, the blood pressure 110/58 with a pulse of 65, temperature 97.8. He is 94% on room air. General description is a middle-age male lying in bed in no distress. RESPIRATORY SYSTEM: Unlabored. Clear to auscultation anteriorly. HEART: S1, S2. Regular rate and rhythm. ABDOMEN: Soft, no tenderness. Right leg to be swollen and slightly red. LABS: White count slightly jump to 12.4 today. Follow-up blood culture was negative. DIAGNOSTIC IMPRESSION AND PLAN: Patient with acute streptococcus bacteremia, source is right lower extremity cellulitis. Patient maintained on cefazolin . Will reapply the Moreno wrap to keep the swelling down and re-evaluate the patient tomorrow. NICO
[2016-10-24 10:27] LABS: Basophils # (A) 0.1 k/uL (0-0.2); Basophils % (A) 0 %; CH 28.9; CHCM 32.8; Eosinophils # (A) 0.3 k/uL (0-0.7); Eosinophils % (A) 2 %; HCT 40.9 % (39.0-53.0); HDW 2.59; HGB 13.6 gm/dL (13.0-17.5); Luc # (Auto) 0.21; Luc % (Auto) 1; Lymphocytes # (A) 2.4 k/uL (1.0-4.8); Lymphocytes % (A) 15 %; MCH 29.5 pg (25.0-35.0); MCHC 33.3 g/dL (31.0-37.0); MCV 88.6 fL (80.0-100.0); Mean Platelet Volume 7.1; Monocytes # (A) 0.7 k/uL (0-1.0); Monocytes % (A) 5 %; Neutrophils # (A) 11.9 k/uL (1.3-7.7); Neutrophils % (A) 77 %; RBC 4.62 m/uL (4.30-5.90); RDW 14.9 % (11.5-15.5); WBC 15.5 k/uL (3.8-10.6); WBC (Perox) 16.09
[2016-10-24 10:36] LABS: ALT 25 U/L (21-72); AST 15 U/L (17-59); Alkaline Phosphatase 62 U/L (38-126); Anion Gap 10 mmol/L; Blood Urea Nitrogen 20 mg/dL (9-20); Calcium 8.3 mg/dL (8.4-10.2); Carbon Dioxide 28 mmol/L (22-30); Chloride 102 mmol/L (98-107); Glucose 180 mg/dL (74-99); Non-African American GFR(MDRD) >60 (>60 ml/min/1.73 sqM); Potassium 3.5 mmol/L (3.5-5.1); Sodium 140 mmol/L (137-145); Total Bilirubin 0.7 mg/dL (0.2-1.3); Total Protein 6.5 g/dL (6.3-8.2)
[2016-10-24] MEDS ORDERED: APIXABAN 5 MG TAB PO SCH (11:30)
[2016-10-24 11:48] LABS: Glucose,Whole Blood 179 mg/dL (75-99)
[2016-10-24 12:15] VITALS: BP 124/61
[2016-10-24] MEDS: POTASSIUM CHLORIDE ER 20 MEQ TAB.ER PO SCH ×2 (12:40→13:55)
--- NOTE | 2016-10-24 13:46 | PN ---
DATE OF SERVICE: 10/24/2016 Reason for followup is strep bacteremia with right lower extremity cellulitis. INTERVAL HISTORY: The patient is afebrile. He is current feeling better, breathing comfortably. Denies significant pain in the right leg area. Patient denies having any chest pain or shortness of breath or cough. No abdominal pain or any diarrhea. On examination, blood pressure is 126/57 with a pulse of 60, temperature 97.5. He is 96% on room air. General description is a middle-age male, up in the chair in no distress. RESPIRATORY SYSTEM: Unlabored breathing. Clear to auscultation anteriorly. HEART: S1, S2. Regular rate and rhythm. Abdomen is soft, no tenderness. The right leg is swollen and the redness is slightly decreased. Minimally warm to touch. LABS: White count is slightly elevated at 15,000 today. DIAGNOSTIC IMPRESSION AND PLAN: Patient with strep bacteremia, source likely lower extremity cellulitis. Patient received about peak of IV antibiotic therapy, as the patient is supposed to be going home, he was switched over to Keflex 500 q.6 for another 10 days with close outpatient followup along with an Moreno wrap from just above to below the knee.
--- NOTE | 2016-10-24 14:26 | P.PN ---
Subjective Progress note dated 10/20/2016 61-year-old male with a history of multiple medical problems including sleep apnea syndrome valvular heart disease diabetes hyperlipidemia obesity. Does have a history of heart failure. Seen by pc tech out of [place] who was sometimes comes to [place] and/or [facility]. Anyway the patient presents with complaints of shortness of breath. He was found on chest x-ray and by labs and by examination to have heart failure. Chest x-ray this morning is much improved. He was initially in the ICU and was sound transferred out this morning before had a chance to see me in the ICU.Dr. Silva did the consult yesterday. His impression was the patient had acute pulmonary edema with hypoxemic respiratory failure acute sepsis with bacteremia although the source was not clear possibly cellulitis of the right lower extremity possible endocarditis multiple comorbidities including sleep apnea syndrome morbid obesity type 2 diabetes hypertension and hyperlipidemia. He ordered number different things noted in his consultation. Again I'm happy to report that the patient's feeling much improved. He was stable to be moved out of the ICU this morning. Progress note dated 10/21/2016 61-year-old male who was seen initially over the week and by my partner. He came with a history of CHF. Has history of sleep apnea syndrome valvular heart disease diabetes hyperlipidemia and obesity. Also has a history of chronic CHF. Sees a pc tech out of [place]. Anyway the patient is feeling much better. He was in the unit Thursday morning but we saw him actually after he got transferred off the unit to the sixth floor. The patient does have a history of multiple other medical problems as mentioned above and also mentioned in the progress note from yesterday. Anyway he is feeling much improved. Chest x-ray is much improved. Much less short of breath. Possible discharge today he is not sure. Progress note dated 10/22/2016 61-year-old male admitted initially to the ICU for heart failure. He also has a history of SVT. He apparently is going to have a ablation done. The patient was going to be discharged home and brought back. Instead, the plan is to do it here in the hospital before he leaves. In addition to the CHF and valvular heart disease as well as sleep apnea obesity and diabetes, his a history of hyperlipidemia. He used to see a pc tech and [place] about probably will transfer his care someplace else. From the pulmonary standpoint feeling well. Progress note dated 10/23/2016 61-year-old male who was initially admitted to the ICU for heart failure. He also has a history of supraventricular tachycardia. He was going to be discharged home but instead they decided to keep him for an ablation. The patient is doing reasonably well. The patient states that he is not having any chest pain or shortness of breath. Feels reasonably good. No fever no chills. No nausea vomiting or diarrhea. Uses a pc tech and [facility]. Has a history of heart failure valvular heart disease sleep apnea obesity diabetes hyperlipidemia and SVT. Will probably translate his cardiac care to [facility] year- round. Use also see a pc tech at [facility]. From the pulmonary standpoint doing reasonably well. The patient is seen again today 10/24/2016 in follow-up on the selective care unit. He is sitting up in a chair at the bedside. He is awake and alert in no acute distress. He had undergone EP studies with Dr. Phelps yesterday. He is on beta blockers and amiodarone. He denies any worsening shortness of breath today. No sneezing shortness of breath cough or congestion. Maintaining good O2 saturations in the upper 90s on room air. He is anxious to go home. Objective - Vital Signs Vital signs: Vital Signs Temp 97.5 F L 10/24/16 08:15 Pulse 60 10/24/16 11:20 Resp 16 10/24/16 11:20 BP 124/61 10/24/16 11:20 Pulse Ox 97 10/24/16 11:20 Intake & Output 10/23/16 10/24/16 10/24/16 18:59 06:59 18:59 Intake Total 1762.9 600 180 Output Total 950 325 200 Balance 812.9 275 -20 Weight 161.1 kg Intake: IV 1153 Intake, IV Titration 609.9 Amount Dextrose 5% in Water 100 99.9 ml As IV .STK-MED ONE with Amiodarone 150 mg Rx #:[id number] Sodium Chloride 0.9% 1, 160 000 ml @ 20 mls/hr IV . Q24H [facility] Rx#:[id number] Vancomycin 1,000 mg In 250 Sodium Chloride 0.9% 250 ml @ 250 mls/hr IVPB ONCE STA Rx#:[id number] ceFAZolin 2 gm In Sodium 100 Chloride 0.9% 100 ml @ 100 mls/hr IVPB Q8H [facility] Rx#:[id number] Oral 600 180 Output: Urine 950 325 200 Other: Voiding Method Indwelling Catheter Toilet Toilet Urinal Urinal # Voids 1 1 - Exam GENERAL EXAM: Alert, active, comfortable in no apparent distress. HEAD: Normocephalic. EYES: Normal reaction of pupils, equal size. NOSE: Clear with pink turbinates. THROAT: No erythema or exudates. NECK: No masses, no JVD. CHEST: No chest wall deformity. LUNGS: Equal air entry with no crackles, wheeze, rhonchi or dullness. CVS: S1 and S2 normal with no audible murmurs, regular rhythm. ABDOMEN: No hepatosplenomegaly, normal bowel sounds, no guarding or rigidity. SPINE: No scoliosis or deformity SKIN: No rashes CENTRAL NERVOUS SYSTEM: No focal deficits, tone is normal in all 4 extremities. [place] is: There is no significant peripheral edema. No clubbing, no cyanosis. Peripheral pulses are intact. - Labs CBC & Chem 7: 10/24/16 10:16 10/24/16 10:16 Labs: Abnormal Lab Results - Last 24 Hours (Table) 10/23/16 10/23/16 10/23/16 Range/Units 15:02 16:26 20:24 WBC (3.8-10.6) k/uL Neutrophils # (1.3-7.7) k/uL Glucose (74-99) mg/dL POC Glucose (mg/dL) 199 H 197 H 212 H (75-99) mg/dL Calcium (8.4-10.2) mg/dL AST (17-59) U/L 10/24/16 10/24/16 10/24/16 Range/Units 05:48 10:16 10:16 WBC 15.5 H (3.8-10.6) k/uL Neutrophils # 11.9 H (1.3-7.7) k/uL Glucose 180 H (74-99) mg/dL POC Glucose (mg/dL) 124 H (75-99) mg/dL Calcium 8.3 L (8.4-10.2) mg/dL AST 15 L (17-59) U/L 10/24/16 Range/Units 11:46 WBC (3.8-10.6) k/uL Neutrophils # (1.3-7.7) k/uL Glucose (74-99) mg/dL POC Glucose (mg/dL) 179 H (75-99) mg/dL Calcium (8.4-10.2) mg/dL AST (17-59) U/L Microbiology - Last 24 Hours (Table) 10/19/16 12:00 Blood Culture - Preliminary Blood No Growth after 120 hours 10/18/16 20:35 Blood Culture - Preliminary Blood No Growth after 120 hours 10/19/16 12:40 Blood Culture - Preliminary Blood No Growth after 96 hours Assessment and Plan Plan: Assessment and Plan (1) CHF (congestive heart failure) Status: Acute (2) Diabetes Status: Acute (3) Cellulitis Status: Acute (4) Sleep apnea syndrome Status: Acute (5) Obesity Status: Acute (6) Hypertension Status: Acute (7) Hyperlipidemia Status: Acute (8) Acute respiratory failure Status: Acute (9) Flash pulmonary edema Status: Acute Plan: The patient was seen and evaluated by Dr. Spivey. He is stable from the pulmonary standpoint and could be discharged home once cleared by cardiology. We'll continue with his current medications. He could follow-up in our office in 1-2 weeks' time. We'll repeat a chest x-ray done. He is however encouraged to call sooner with any recurrence of symptoms or other questions or concerns.
--- NOTE | 2016-10-24 14:36 | P.DS ---
Providers Date of admission: 10/18/16 14:35 Expected date of discharge: 10/24/16 Attending physician: Kaye Smith Consults: 10/18/16 23:32 Consult Physician Stat Consulting Provider: Nawaf Gomez Consult Reason/Comments: svt Do you want consulting provider notified?: Already Contacted 10/19/16 11:48 Consult Physician Routine Consulting Provider: Varghese Richardson Consult Reason/Comments: sepsis Do you want consulting provider notified?: Yes Dr. Spivey Primary care physician: Anna [facility] Course: discharge diagnosis 1. Acute diastolic heart failure exacerbation: Lasix switched to oral. Patient 's been getting extra doses of IV Lasix 20 mg once a day for the past couple of days 2. Community-acquired pneumonia: On broad-spectrum antibiotic. Antibiotic adjusted by infectious disease 3. Severe sepsis without septic shock 4. Bacteremia with Streptococcal: repeat blood culture negative to date. source of bacteremia is right lower extremity cellulitis 5. Acute toxo metabolic encephalopathy attributed to #2 or 3 7. Obstructive sleep apnea: CPAP machine at night 7. Type 2 diabetes mellitus: Home insulin dose was reduced during this hospitalization. Would monitor closely. Sliding scale insulin. 8. Chronic venous insufficiency: Encouraged to use compression stockings regularly at home 9. Morbid obesity 10. Symptomatic supraventricular tachycardia now in normal sinus rhythm: Seen and evaluated by EP. patient had EP study completed showing atrial fibrillation /atrial tachycardia. Cardiology adjusted Coreg dose and added amiodarone 11. Essential hypertension: Blood pressure well-controlled 12. Mixed hyperlipidemia 13. Acute kidney injury, now resolved. Avoid nephrotoxins. 14. Acute hypoxic respiratory failure Hospital course This is a 61-year-old gentleman with a very complex past medical history noted below significant for morbid obesity, type 2 diabetes mellitus, and obstructive sleep apnea who presented to the hospital with worsening shortness of breath. Patient said that he shortness of breath started a few days ago but is been getting progressively worse. He is known to have underlying heart failure with chronic venous insufficiency and chronic edema. He said for the past few days he was unable to walk around without being short of breath. Yesterday he was having some chills and cough that was initially nonproductive. He presented to the emergency room was found to be hypoxic and chest x-ray showed evidence of pulmonary edema. Patient was started on IV Lasix and was admitted to the hospital. Soon after admission he was found to be tachycardic with a heart rate of 170s. Patient was noted to be in SVT. He received 1 dose of IV metoprolol. He was transferred to the intensive care unit.patient also noted be sepsis. He did have one positive blood culture that did grow beta streptococcus group C. He was followed closely by infectious disease. They felt that the bacteremia was related to the cellulitis of the leg. He was receiving IV Kefzol. As been switched over to Keflex by mouth for 10 more days. Per infectious disease he is stable for discharge. The right leg cellulitis has shown some improvement since admission. He is followed closely by cardiology in regards to the SVT. There were questions about possible ablation however the cardiology did complete EP study and felt no ablation at this time. And recommended medications for atrial fibrillation/patient tachycardia on amiodarone and Coreg. Cardiology has cleared him for discharge. We will anticoagulate him with Eliquis and baby aspirin twice a day. Patient' s symptoms have improved and he is eager for discharge. We'll have him follow up with consulting physicians as well as PCP. Please refer to chart for any further details.cardiology has added Corag, Aldactone and lisinopril during this admission. And he is continue with the Lasix 40 mg daily. Patient's symptoms have improved. Please refer to chart for any further details. Patient Condition at Discharge: Stable Plan - Discharge Summary New Discharge Prescriptions: Apixaban [Eliquis] 5 mg PO BID #60 tab Aspirin 81 mg PO BID #60 chew Carvedilol [Coreg*] 37.5 mg PO BID-W/MEALS #60 tab Cephalexin [Keflex] 500 mg PO Q6HR #44 cap Lisinopril [Zestril] 20 mg PO DAILY #30 tab Spironolactone [Aldactone] 25 mg PO DAILY #30 tab Discharge Medication List Atorvastatin [Lipitor] 40 mg PO DAILY 10/18/16 [History] Furosemide [Lasix] 40 mg PO DAILY 10/18/16 [History] Insulin Glargine,Hum.rec.anlog [Lantus Solostar] 50 unit SQ HS 10/18/16 [History ] Insulin Glargine,Hum.rec.anlog [Lantus Solostar] 55 unit SQ QAM 10/18/16 [ History] Insulin Lispro [humaLOG Kwikpen] 20 unit SQ AC-TID 10/18/16 [History] Insulin Lispro [humaLOG Kwikpen] See Protocol SQ AC-TID 10/18/16 [History] Loratadine [Claritin] 10 mg PO DAILY 10/18/16 [History] Potassium Chloride ER [K-Dur 20] 20 meq PO DAILY 10/18/16 [History] metFORMIN HCL 1,000 mg PO AC-BID 10/18/16 [History] Cephalexin [Keflex] 500 mg PO Q6HR #44 cap 10/21/16 [Rx] Apixaban [Eliquis] 5 mg PO BID #60 tab 10/24/16 [Rx] Aspirin 81 mg PO BID #60 chew 10/24/16 [Rx] Carvedilol [Coreg*] 37.5 mg PO BID-W/MEALS #60 tab 10/24/16 [Rx] Lisinopril [Zestril] 20 mg PO DAILY #30 tab 10/24/16 [Rx] Spironolactone [Aldactone] 25 mg PO DAILY #30 tab 10/24/16 [Rx] Follow up Appointment(s)/Referral(s): Chen Miller NPC [Nurse Practitioner] - 10/31/16 10:30 am Varghese Richardson MD [STAFF PHYSICIAN] - 10/30/16 9:15 am Anna Rizvi MD [Primary Care Provider] - 1 Week Activity/Diet/Wound Care/Special Instructions: *support clerk Eliqufiona script from [facility] at time of discharge - copay is $ 45* Diet: Cardiac Activity: as tolerated Keep leg elevated and grzegorz wrap leg Discharge Disposition: HOME SELF-CARE
--- NOTE | 2016-10-24 15:10 | P.PN ---
Subjective This is a 61-year-old gentleman who was admitted with nausea, shortness of breath and cellulitis he was found to be in a supraventricular tachycardia between 160 170 beats a minute. The SVT was terminated with IV metoprolol in the emergency department. His breathing improved thereafter but he was also found to be septic and 1 blood culture was positive. He was taken for a diagnostic EP study yesterday and it was discovered he actually had a very rapid atrial tachycardia, atrial fibrillation and ablation was aborted. He has been started on amiodarone. Reports were received from [facility] regarding a cardiac catheterization patient had in 2012. It was found to show left circumflex artery with 60% stenosis and first obtuse marginal artery with 90% stenosis. At that time patient was recommended medical therapy and was put on Ranexa and Plavix. At this time we will stop Plavix and continue aspirin 162 mg daily and start Eliquis 5 mg by mouth twice a day. Objective - Vital Signs Vital signs: Vital Signs Temp 97.5 F L 10/24/16 08:15 Pulse 60 10/24/16 11:20 Resp 16 10/24/16 11:20 BP 124/61 10/24/16 11:20 Pulse Ox 97 10/24/16 11:20 Intake & Output 10/23/16 10/24/16 10/24/16 18:59 06:59 18:59 Intake Total 1762.9 600 180 Output Total 950 325 200 Balance 812.9 275 -20 Weight 161.1 kg Intake: IV 1153 Intake, IV Titration 609.9 Amount Dextrose 5% in Water 100 99.9 ml As IV .STK-MED ONE with Amiodarone 150 mg Rx #:[id number] Sodium Chloride 0.9% 1, 160 000 ml @ 20 mls/hr IV . Q24H DOUGLAS Rx#:[id number] Vancomycin 1,000 mg In 250 Sodium Chloride 0.9% 250 ml @ 250 mls/hr IVPB ONCE STA Rx#:[id number] ceFAZolin 2 gm In Sodium 100 Chloride 0.9% 100 ml @ 100 mls/hr IVPB Q8H DOUGLAS Rx#:[id number] Oral 600 180 Output: Urine 950 325 200 Other: Voiding Method Indwelling Catheter Toilet Toilet Urinal Urinal # Voids 1 1 - Exam PHYSICAL EXAMINATION: HEENT: Head is atraumatic, normocephalic. Pupils equal, round. Neck is supple. There is no elevated jugular venous pressure. HEART EXAMINATION: Heart sounds regular, S1 and S2 normal. No murmur or gallop heard. CHEST EXAMINATION: Lungs reveal diminished air entry bilaterally. No chest wall tenderness is noted on palpation or with deep breathing. Left chest puncture site soft without hematoma or ecchymosis. ABDOMEN: Soft, nontender. Bowel sounds are heard. No organomegaly noted. EXTREMITIES: Diminished peripheral pulses with evidence of moderate peripheral edema and right lower extremity cellulitis. Right and left groin puncture sites soft without hematoma. . NEUROLOGIC patient is awake, alert and oriented x3. . - Labs CBC & Chem 7: 10/24/16 10:16 10/24/16 10:16 Labs: Abnormal Lab Results - Last 24 Hours (Table) 10/23/16 10/23/16 10/23/16 Range/Units 15:02 16:26 20:24 WBC (3.8-10.6) k/uL Neutrophils # (1.3-7.7) k/uL Glucose (74-99) mg/dL POC Glucose (mg/dL) 199 H 197 H 212 H (75-99) mg/dL Calcium (8.4-10.2) mg/dL AST (17-59) U/L 10/24/16 10/24/16 10/24/16 Range/Units 05:48 10:16 10:16 WBC 15.5 H (3.8-10.6) k/uL Neutrophils # 11.9 H (1.3-7.7) k/uL Glucose 180 H (74-99) mg/dL POC Glucose (mg/dL) 124 H (75-99) mg/dL Calcium 8.3 L (8.4-10.2) mg/dL AST 15 L (17-59) U/L 10/24/16 Range/Units 11:46 WBC (3.8-10.6) k/uL Neutrophils # (1.3-7.7) k/uL Glucose (74-99) mg/dL POC Glucose (mg/dL) 179 H (75-99) mg/dL Calcium (8.4-10.2) mg/dL AST (17-59) U/L Microbiology - Last 24 Hours (Table) 10/19/16 12:40 Blood Culture - Preliminary Blood No Growth after 120 hours 10/19/16 12:00 Blood Culture - Preliminary Blood No Growth after 120 hours 10/18/16 20:35 Blood Culture - Preliminary Blood No Growth after 120 hours Assessment and Plan Plan: Assessment and plan #1 paroxysmal atrial fibrillation #2 hypertension with severe left ventricular hypertrophy #3 sepsis #4 diabetes #5 obesity #6 coronary artery disease From cardiology's perspective, patient may be discharged home today. He will go home on amiodarone 200 mg by mouth twice a day for one month at which time he will decrease to 100 mg by mouth twice a day. Continue oral anticoagulation. Stop Plavix and continue aspirin 81 mg by mouth twice a day. He will follow-up in the office in one week. At this time it is felt he is not a good candidate for ablation however cryoablation may be considered since this is a much shorter procedure. We will schedule the patient as an outpatient for a stress test to follow-up unknown coronary artery disease. PHARMACY INTAKE TECHNICIAN note has been reviewed, I agree with a documented findings and plan of care. Patient was seen and examined.
[2016-10-25] MEDS ORDERED: ASPIRIN 81 MG CHEW PO SCH (09:00)
== END 2016-10-24 16:37 | disposition home or self-care (01) | DRG 871 ==
LOC: EC 12:48 → 6SEL 14:35 → 6ICU 20:54 → 6SEL 10-20 09:34
PROVIDERS: ADMIT Internal Medicine; ATTEND Internal Medicine
PROC: 4A0234Z Measurement of Cardiac Electrical Activity, Percutaneous Approach (ICD-10-PCS; principal; 2016-10-23 11:30)
PROC: 4A023FZ Measurement of Cardiac Rhythm, Percutaneous Approach (ICD-10-PCS; principal; 2016-10-23 11:30)
PROC: 5A2204Z Restoration of Cardiac Rhythm, Single (ICD-10-PCS; principal; 2016-10-23 11:30)
DX: A40.8 Other streptococcal sepsis (principal); G93.41 Metabolic encephalopathy; J96.01 Acute respiratory failure with hypoxia; I50.43 Acute on chronic combined systolic (congestive) and diastolic (congestive) heart failure; R65.20 Severe sepsis without septic shock; J18.9 Pneumonia, unspecified organism; I42.9 Cardiomyopathy, unspecified; I11.0 Hypertensive heart disease with heart failure; Z68.42 Body mass index [BMI] 45.0-49.9, adult; N17.9 Acute kidney failure, unspecified; E87.2 Acidosis; J44.0 Chronic obstructive pulmonary disease with (acute) lower respiratory infection; I47.1 Supraventricular tachycardia; L03.115 Cellulitis of right lower limb; E66.01 Morbid (severe) obesity due to excess calories; E11.69 Type 2 diabetes mellitus with other specified complication; E78.2 Mixed hyperlipidemia; F17.200 Nicotine dependence, unspecified, uncomplicated; G47.33 Obstructive sleep apnea (adult) (pediatric); I25.10 Atherosclerotic heart disease of native coronary artery without angina pectoris; I48.0 Paroxysmal atrial fibrillation; I87.2 Venous insufficiency (chronic) (peripheral); Z79.01 Long term (current) use of anticoagulants; Z79.4 Long term (current) use of insulin; Z79.82 Long term (current) use of aspirin; Z79.899 Other long term (current) drug therapy
CPT/HCPCS: 36415; 36600; 71010; 80048; 80053; 80202; 81003; 82533; 82550; 82553; 82805; 83036; 83605; 83735; 83880; 84100; 84132; 84443; 84484; 85025; 85610; 85730; 87040; 87077; 87086; 87186; 87502; 93005; 93306; 93620; 93623; 94002; 94640; 94660; 96374; 96375; 99291

== ENCOUNTER 2017-02-26 21:02 | Inpatient (IN) | payer BC ==
[2017-02-26] MEDS ORDERED: FUROSEMIDE 10 MG/ML 4 ML VIAL IV STA (21:11)
[2017-02-26] MEDS ORDERED: IPRATROPIUM 0.5 MG/2.5 ML NEBU INHALATION STA (21:11)
[2017-02-26] MEDS ORDERED: ALBUTEROL NEBULIZED 2.5 MG/3 ML INHALATION STA (21:11)
[2017-02-26] MEDS ORDERED: NITROGLYCERIN-D5W PMX 50 MG in DEXTROSE/WATER 1 250ML.BAG IV STA (21:11)
[2017-02-26] MEDS ORDERED: ENALAPRILAT 1.25 MG/ML 1 ML VIAL IVP STA (21:12)
[2017-02-26] MEDS ORDERED: NITROGLYCERIN SL TABS 0.4 MG TAB SUBLINGUAL PRN (21:12)
--- NOTE | 2017-02-26 21:17 | ED ---
General Adult HPI - General Chief complaint: Shortness of Breath Stated complaint: Chest Pain Time Seen by Provider: 02/26/17 21:06 Source: patient, RN notes reviewed, old records reviewed Mode of arrival: wheelchair Limitations: no limitations - History of Present Illness Initial comments: This is a 60-year-old male the ER for evaluation by private car. Patient's friend by who states patient's having severe shortness of breath, history of recent cardiac ablation secondary to A. fib, severe shortness of breath history of heart failure history of COPD history of A. fib, patient's symptoms And Vicky while patient was at home and got progressively worse over a short period of time. Patient's I will give history secondary to severe clinical condition - Related Data Home Medications Medication Instructions Recorded Confirmed Atorvastatin [Lipitor] 40 mg PO DAILY 10/18/16 02/26/17 Furosemide [Lasix] 40 mg PO DAILY 10/18/16 02/26/17 Insulin Glargine,Hum.rec.anlog 40 unit SQ BID 10/18/16 02/26/17 [Lantus Solostar] Insulin Lispro [humaLOG Kwikpen] See Protocol SQ AC-TID 10/18/16 02/26/17 Loratadine [Claritin] 10 mg PO DAILY 10/18/16 02/26/17 Potassium Chloride ER [K-Dur 20] 20 meq PO DAILY 10/18/16 02/26/17 metFORMIN HCL 1,000 mg PO AC-BID 10/18/16 02/26/17 Acyclovir [Zovirax] 800 mg PO Q5H 02/25/17 02/26/17 Metoprolol 100 mg PO DAILY 02/25/17 02/26/17 predniSONE 4 tab PO BID 02/25/17 02/26/17 Metoprolol Succinate (ER) [Toprol 100 mg PO DAILY 02/26/17 02/26/17 Xl] Previous Rx's Medication Instructions Recorded Amiodarone [Cordarone] 200 mg PO BID #120 tab 10/24/16 Apixaban [Eliquis] 5 mg PO BID #60 tab 10/24/16 Aspirin 81 mg PO BID #60 chew 10/24/16 Lisinopril [Zestril] 20 mg PO DAILY #30 tab 10/24/16 Spironolactone [Aldactone] 25 mg PO DAILY #30 tab 10/24/16 Allergies Allergy/AdvReac Type Severity Reaction Status Date / Time No Known Allergies Allergy Verified 02/26/17 21:11 Review of Systems ROS Statement: Those systems with pertinent positive or pertinent negative responses have been documented in the HPI. ROS Other: All systems not noted in ROS Statement are negative. Past Medical History Past Medical History: Heart Failure, COPD, Diabetes Mellitus, Hyperlipidemia, Hypertension History of Any Multi-Drug Resistant Organisms: None Reported Past Surgical History: Appendectomy, Tonsillectomy Past Anesthesia/Blood Transfusion Reactions: No Reported Reaction Past Psychological History: No Psychological Hx Reported Smoking Status: Former smoker Past Alcohol Use History: None Reported Past Drug Use History: None Reported General Exam Limitations: no limitations General appearance: alert, anxious, in distress, obese Head exam: Present: atraumatic, normocephalic, normal inspection Eye exam: Present: normal appearance, PERRL, EOMI. Absent: scleral icterus, conjunctival injection, periorbital swelling ENT exam: Present: normal exam, mucous membranes moist Neck exam: Present: normal inspection. Absent: tenderness, meningismus, lymphadenopathy Respiratory exam: Present: respiratory distress, wheezes, rales, accessory muscle use, decreased breath sounds, prolonged expiratory. Absent: normal lung sounds bilaterally, rhonchi, stridor Cardiovascular Exam: Present: normal rhythm, tachycardia, normal heart sounds. Absent: systolic murmur, diastolic murmur, rubs, gallop, clicks GI/Abdominal exam: Present: soft, normal bowel sounds. Absent: distended, tenderness, guarding, rebound, rigid Extremities exam: Present: normal inspection, full ROM, normal capillary refill. Absent: tenderness, pedal edema, joint swelling, calf tenderness Back exam: Present: normal inspection Neurological exam: Present: alert, oriented X3, CN II-XII intact Psychiatric exam: Present: normal affect, normal mood Skin exam: Present: warm, dry, intact, normal color. Absent: rash Course Vital Signs 02/26/17 02/26/17 02/26/17 21:05 21:33 21:46 Temperature 97.8 F Pulse Rate 90 76 70 Respiratory 28 H Rate Blood Pressure 264/135 O2 Sat by Pulse 69 L Oximetry - Reevaluation(s) Reevaluation #1: 02/26/17 21:57 Patient is improving slowly on BiPAP with blood pressure control, nitro EKG Findings - EKG Comments: EKG Findings:: EKG shows sinus arrhythmia Vasotec. 214, QRS 120, QTC 527 Medical Decision Making - Medical Decision Making 58 female the ER for evaluation regarding hypertensive emergency, flash pulmonary edema with CHF OxyContin and COPD. Patient placed on BiPAP getting breathing treatments and blood pressure control upon arrival to emergency room, patient is improving slowly, will admit for continued monitoring of cardiopulmonary resuscitation - Lab Data Result diagrams: 02/26/17 21:14 02/26/17 21:14 Lab Results 02/26/17 02/26/17 02/26/17 Range/Units 21:14 21:14 21:14 WBC 30.3 H* (3.8-10.6) k/uL RBC 6.09 H (4.30-5.90) m/uL Hgb 17.8 H (13.0-17.5) gm/dL Hct 56.4 H (39.0-53.0) % MCV 92.7 (80.0-100.0) fL MCH 29.3 (25.0-35.0) pg MCHC 31.6 (31.0-37.0) g/dL RDW 16.1 H (11.5-15.5) % Plt Count 315 (150-450) k/uL PT 10.7 (9.0-12.0) sec INR 1.1 (<1.2) APTT 22.5 (22.0-30.0) sec Sodium 142 (137-145) mmol/L Potassium 4.9 (3.5-5.1) mmol/L Chloride 101 (98-107) mmol/L Carbon Dioxide 25 (22-30) mmol/L Anion Gap 16 mmol/L BUN 31 H (9-20) mg/dL Creatinine 1.20 (0.66-1.25) mg/dL Est GFR (MDRD) Af Amer >60 (>60 ml/min/1.73 sqM) Est GFR (MDRD) Non-Af >60 (>60 ml/min/1.73 sqM) Glucose 392 H (74-99) mg/dL Calcium 9.7 (8.4-10.2) mg/dL Magnesium 2.0 (1.6-2.3) mg/dL Total Bilirubin 0.7 (0.2-1.3) mg/dL AST 27 (17-59) U/L ALT 50 (21-72) U/L Alkaline Phosphatase 73 (38-126) U/L Total Protein 7.9 (6.3-8.2) g/dL Albumin 4.9 (3.5-5.0) g/dL - Radiology Data Radiology results: report reviewed (Chest x-ray is significant for flash pulmonary edema likely underlying infiltrate), image reviewed Critical Care Time Critical Care Time: Yes Total Critical Care Time: 31 Disposition Clinical Impression: Flash pulmonary edema, Acute respiratory failure, CHF (congestive heart failure ), Acute exacerbation of chronic obstructive airways disease, Hypoxia Disposition: ADMITTED IP TO THIS HOSP Condition: Serious Referrals: Anna Rizvi MD [Primary Care Provider] - 1-2 days
--- NOTE | 2017-02-26 21:34 | XR ---
EXAMINATION TYPE: XR chest 1V portable DATE OF EXAM: 02/26/2017 COMPARISON: NONE HISTORY: Shortness of breath TECHNIQUE: Frontal and lateral views of the chest are obtained. FINDINGS: Scattered senescent parenchymal changes noted. Hyperinflation compatible with COPD. Right perihilar and right lower lobe infiltrate and to a lesser extent left perihilar region. There i s pulmonary venous congestion and cardiomegaly. The findings likely reflect acute pulmonary edema. Un derlying infiltrates of other etiology not excluded. Mediastinal structures are stable and grossly unremarkable. No evidence for hilar prominence. Degenerative changes dorsal spine. IMPRESSION: 1. The findings likely reflect acute pulmonary edema. Underlying infiltrates of other etiology not ex cluded.
[2017-02-26] MEDS ORDERED: methylPREDNISolone SOD SUCCI 125 MG/2 ML VIAL IV STA (21:49)
[2017-02-26 21:50] LABS: Anisocytosis Slight; CH 29.6; CHCM 32.1; HCT 56.4 % (39.0-53.0); HDW 2.32; HGB 17.8 gm/dL (13.0-17.5); MCH 29.3 pg (25.0-35.0); MCHC 31.6 g/dL (31.0-37.0); MCV 92.7 fL (80.0-100.0); RBC 6.09 m/uL (4.30-5.90); RDW 16.1 % (11.5-15.5); WBC (Perox) 28.65
[2017-02-26 21:51] LABS: INR 1.1 (<1.2); Partial Thromboplastin Time 22.5 sec (22.0-30.0); Prothrombin Time 10.7 sec (9.0-12.0)
[2017-02-26 21:52] LABS: ALT 50 U/L (21-72); AST 27 U/L (17-59); Alkaline Phosphatase 73 U/L (38-126); Anion Gap 16 mmol/L; Blood Urea Nitrogen 31 mg/dL (9-20); Calcium 9.7 mg/dL (8.4-10.2); Carbon Dioxide 25 mmol/L (22-30); Chloride 101 mmol/L (98-107); Glucose 392 mg/dL (74-99); Non-African American GFR(MDRD) >60 (>60 ml/min/1.73 sqM); Potassium 4.9 mmol/L (3.5-5.1); Sodium 142 mmol/L (137-145); Total Bilirubin 0.7 mg/dL (0.2-1.3); Total Protein 7.9 g/dL (6.3-8.2)
[2017-02-26 21:53] LABS: WBC 30.3 k/uL (3.8-10.6)
[2017-02-26] MEDS ORDERED: NITROGLYCERIN OINT 1 INCH/GM PACKET TOPICAL SCH (22:00)
[2017-02-26 22:15] LABS: Add Differential Manual Differential
[2017-02-26 22:19] LABS: Creatine Kinase MB 3.6 ng/mL (0.0-2.4); Manual Review Performed; Nucleated Red Blood Cells 0 /100 WBC (0-0); Total Cells Counted 200; Troponin I 0.035 ng/mL (0.000-0.034)
[2017-02-26] MEDS ORDERED: IPRATROPIUM-ALBUTEROL 3 ML NEB INHALATION PRN (23:02)
[2017-02-26 23:28] LABS: Glucose,Whole Blood 340 mg/dL (75-99)
[2017-02-27] MEDS ORDERED: HYDROcodone/APAP 5-325MG 1 EACH TAB PO PRN (00:41)
[2017-02-27] MEDS ORDERED: NALOXONE 0.4 MG/ML 1 ML VIAL IV PRN (00:55)
[2017-02-27] MEDS ORDERED: SODIUM CHLORIDE 0.9% 1,000 ML IV SCH (01:00)
[2017-02-27] MEDS: INSULIN LISPRO (humaLOG) 300 UNIT/3 ML VIAL SQ SCH ×3 (01:43→17:19)
[2017-02-27] MEDS ORDERED: FUROSEMIDE 10 MG/ML 4 ML VIAL IV SCH ×2 (05:00→21:00)
[2017-02-27 05:20] LABS: Anisocytosis Slight; Basophils # (A) 0.1 k/uL (0-0.2); Basophils % (A) 0 %; CH 30.6; CHCM 33.1; Eosinophils # (A) 0.1 k/uL (0-0.7); Eosinophils % (A) 0 %; HCT 48.7 % (39.0-53.0); HDW 2.27; HGB 15.5 gm/dL (13.0-17.5); Luc # (Auto) 0.11; Luc % (Auto) 1; Lymphocytes # (A) 1.2 k/uL (1.0-4.8); Lymphocytes % (A) 6 %; MCH 29.7 pg (25.0-35.0); MCHC 31.9 g/dL (31.0-37.0); MCV 92.9 fL (80.0-100.0); Mean Platelet Volume 7.4; Monocytes # (A) 0.6 k/uL (0-1.0); Monocytes % (A) 3 %; Neutrophils # (A) 17.8 k/uL (1.3-7.7); Neutrophils % (A) 90 %; RBC 5.24 m/uL (4.30-5.90); RDW 16.9 % (11.5-15.5); WBC 19.8 k/uL (3.8-10.6); WBC (Perox) 19.25
[2017-02-27 05:33] LABS: Anion Gap 11 mmol/L; Blood Urea Nitrogen 33 mg/dL (9-20); Calcium 8.5 mg/dL (8.4-10.2); Carbon Dioxide 25 mmol/L (22-30); Chloride 101 mmol/L (98-107); Glucose 327 mg/dL (74-99); Magnesium 1.9 mg/dL (1.6-2.3); Non-African American GFR(MDRD) >60 (>60 ml/min/1.73 sqM); Phosphorous 4.8 mg/dL (2.5-4.5); Potassium 4.6 mmol/L (3.5-5.1); Sodium 137 mmol/L (137-145)
[2017-02-27] MEDS: methylPREDNISolone SOD SUCCI 125 MG/2 ML VIAL IV SCH ×2 (05:45→12:18)
[2017-02-27 05:50] LABS: Creatine Kinase MB 2.4 ng/mL (0.0-2.4)
[2017-02-27 05:57] LABS: Troponin I 0.073 ng/mL (0.000-0.034)
[2017-02-27] MEDS: MAGNESIUM SULFATE-D5W PMX 1 GM in DEXTROSE/WATER 1 100ML.BAG IVPB SCH ×2 (07:06→08:52)
[2017-02-27] MEDS: IPRATROPIUM-ALBUTEROL 3 ML NEB INHALATION SCH ×4 (07:54→19:22)
[2017-02-27] MEDS ORDERED: HEPARIN SODIUM,PORCINE 5,000 UNIT/ML 1 ML VIAL SQ SCH (08:00)
--- NOTE | 2017-02-27 08:01 | XR ---
EXAMINATION TYPE: XR chest 1V DATE OF EXAM: 02/27/2017 COMPARISON: NONE HISTORY: Pulmonary edema and shortness of breath. TECHNIQUE: Single frontal view of the chest is obtained. FINDINGS: Localized right infrahilar opacity remains as there is significantly improved pulmonary v ascular congestion and interstitial edema. This right infrahilar airspace disease demonstrates air br onchograms and given focality is concerning for pneumonia. Cardiomediastinal silhouette is enlarged. Osseous structures appear intact. No pneumothorax or discrete pleural effusion. IMPRESSION: Significant change with resolved pulmonary vascular congestion and interstitial edema. R esidual right infrahilar airspace disease is suspicious for focal pneumonia.
[2017-02-27] MEDS: FAMOTIDINE 20 MG TAB PO SCH ×2 (08:56→21:41)
[2017-02-27] MEDS ORDERED: SPIRONOLACTONE 25 MG TAB PO SCH ×2 (09:00→14:43)
[2017-02-27] MEDS: METOPROLOL SUCCINATE (ER) 50 MG TAB.ER.24H PO SCH (09:05)
[2017-02-27 09:46] VITALS: BMI 47.4
--- NOTE | 2017-02-27 11:01 | P.CNPUL ---
History of Present Illness Consult date: 02/27/17 Requesting physician: Kaye Smith Reason for consult: other (Critical care management.) Chief complaint: Shortness of breath History of present illness: This is a very pleasant 61-year-old gentleman who follows with Dr. Rizvi as his primary care physician. His a history of diabetes Antony, hyperlipidemia, hypertension, atrial fibrillation and previous ablation and anticoagulated with apixaban, congestive heart failure. He also has a history of chronic obstructive pulmonary disease and obstructive sleep apnea utilizing CPAP in the outpatient setting and he follows in our office for the same. Patient was here yesterday for an elective cardioversion for his refractory atrial fibrillation. He had been maintained on amiodarone 400 mg daily. He did receive a 360 J biphasic shock with successful conversion to sinus rhythm. The patient was subsequently released to home and several hours later he developed increasing shortness of breath and returned to the emergency room for the same. His initial chest x-ray did show significant pulmonary vascular congestion with interstitial edema and he was admitted to the intensive care unit for the same. He did receive 40 mg of IV Lasix every 8 hours, bronchodilators and IV Solu- Medrol. Required nitroglycerin drip at 5 mcg/m. He is seen today in consultation. He is currently awake and alert in no acute distress. He denies any worsening shortness of breath, cough or congestion. His x-ray does show significant improvement in the congestive heart failure. He diuresed 2.2 L as far. He denies any chest pain, palpitations lightheadedness or dizziness. He remains in normal sinus rhythm. Review of Systems 14 point review of system was conducted. All negative other than as mentioned in HPI. Past Medical History Past Medical History: Heart Failure, COPD, Diabetes Mellitus, Hyperlipidemia, Hypertension Additional Past Medical History / Comment(s): CELLULITIS TO RLE History of Any Multi-Drug Resistant Organisms: None Reported Past Surgical History: Appendectomy, Tonsillectomy Past Anesthesia/Blood Transfusion Reactions: No Reported Reaction Past Psychological History: No Psychological Hx Reported Smoking Status: Former smoker Past Alcohol Use History: None Reported Additional Past Alcohol Use History / Comment(s): cigar once or twice a year Past Drug Use History: None Reported Medications and Allergies Home Medications Medication Instructions Recorded Confirmed Type Atorvastatin [Lipitor] 40 mg PO DAILY 10/18/16 02/26/17 History Furosemide [Lasix] 40 mg PO DAILY 10/18/16 02/26/17 History Insulin Glargine,Hum.rec.anlog 40 unit SQ BID 10/18/16 02/26/17 History [Lantus Solostar] Insulin Lispro [humaLOG Kwikpen] See Protocol SQ AC-TID 10/18/16 02/26/17 History Loratadine [Claritin] 10 mg PO DAILY 10/18/16 02/26/17 History Potassium Chloride ER [K-Dur 20] 20 meq PO DAILY 10/18/16 02/26/17 History metFORMIN HCL 1,000 mg PO AC-BID 10/18/16 02/26/17 History Acyclovir [Zovirax] 800 mg PO 5XD 02/25/17 02/26/17 History predniSONE 20 mg PO BID 02/25/17 02/26/17 History Aspirin EC [Ecotrin Low Dose] 81 mg PO BID 02/26/17 02/26/17 History Metoprolol Succinate (ER) [Toprol 100 mg PO DAILY 02/26/17 02/26/17 History Xl] Allergies Allergy/AdvReac Type Severity Reaction Status Date / Time No Known Allergies Allergy Verified 02/26/17 21:11 Physical Exam Vitals: Vital Signs Temp Pulse Resp BP Pulse Ox 02/27/17 10:00 69 150/62 02/27/17 09:30 62 150/62 95 02/27/17 09:00 59 L 143/68 96 02/27/17 08:30 98.2 F 57 L 142/68 95 02/27/17 08:07 60 02/27/17 08:00 57 L 140/65 98 02/27/17 07:57 60 02/27/17 07:30 50 L 135/69 97 02/27/17 07:00 48 L 16 137/69 96 02/27/17 06:30 49 L 134/69 97 02/27/17 06:00 48 L 18 136/69 95 02/27/17 05:30 49 L 18 126/71 96 02/27/17 05:00 50 L 18 137/81 96 02/27/17 04:30 50 L 124/65 95 02/27/17 04:00 54 L 18 130/60 92 L 02/27/17 03:30 75 18 135/70 94 L 02/27/17 03:00 54 L 18 134/71 94 L 02/27/17 02:30 55 L 128/68 93 L 02/27/17 02:00 55 L 18 129/66 92 L 02/27/17 01:30 57 L 134/72 95 02/27/17 01:00 54 L 20 134/71 92 L 02/27/17 00:30 56 L 132/72 94 L 02/27/17 00:00 96.6 F L 59 L 20 155/84 95 02/26/17 23:34 60 196/109 95 02/26/17 23:30 96.6 F L 63 20 196/109 97 02/26/17 23:24 63 02/26/17 22:37 60 20 160/76 98 02/26/17 22:15 96.6 F L 02/26/17 21:46 70 02/26/17 21:33 76 02/26/17 21:05 97.8 F 90 28 H 264/135 69 L Intake and Output 02/26/17 02/27/17 02/27/17 22:59 06:59 14:59 Intake Total 408.175 380 Output Total 1999 1250 Balance -1591.825 -870 Intake: IV 140 80 Sodium Chloride 0.9% 1, 140 80 000 ml @ 20 mls/hr IV . Q24H D[facility]GL[facility] Rx#:[id number] Intake, IV Titration 18.175 100 Amount Magnesium Sulfate-D5w Pmx 100 1 gm In Dextrose/Water 1 100ml.bag @ 100 mls/hr IVPB Q1H DOUGL[facility] Rx#: [id number] Nitroglycerin-D5w Pmx 50 18.175 mg In Dextrose/Water 1 250ml.bag @ 5 MCG/MIN 1.5 mls/hr IV .Q24H STA Rx#: [id number] Oral 250 200 Output: Urine 1999 1250 Other: Voiding Method Urinal # Bowel Movements 0 Weight 161 kg 158.6 kg 158.6 kg Patient Weight 02/28/17 06:59 Weight 158.6 kg GENERAL EXAM: Alert, active, comfortable in no apparent distress. HEAD: Normocephalic. EYES: Normal reaction of pupils, equal size. NOSE: Clear with pink turbinates. THROAT: No erythema or exudates. NECK: No masses, no JVD. CHEST: No chest wall deformity. LUNGS: Equal air entry with us in the posterior bases. CVS: S1 and S2 normal with no audible murmurs, regular rhythm. ABDOMEN: No hepatosplenomegaly, normal bowel sounds, no guarding or rigidity. SPINE: No scoliosis or deformity SKIN: No rashes CENTRAL NERVOUS SYSTEM: No focal deficits, tone is normal in all 4 extremities. Extremities: There is no significant peripheral edema. No clubbing, no cyanosis. Peripheral pulses are intact. Results - Laboratory Findings CBC and BMP: 02/27/17 04:44 02/27/17 04:44 PT/INR, D-dimer PT 10.7 sec (9.0-12.0) 02/26/17 21:14 INR 1.1 (<1.2) 02/26/17 21:14 Abnormal lab findings: Abnormal Labs 02/26/17 02/26/17 02/26/17 21:14 21:14 21:14 WBC 30.3 H* RBC 6.09 H Hgb 17.8 H Hct 56.4 H RDW 16.1 H Neutrophils # Neutrophils # (Manual) 23.33 H Lymphocytes # (Manual) 4.85 H Monocytes # (Manual) 2.12 H BUN 31 H Glucose 392 H POC Glucose (mg/dL) Phosphorus CK-MB (CK-2) 3.6 H* Troponin I 0.035 H* 02/26/17 02/27/17 02/27/17 23:25 04:44 04:44 WBC 19.8 H RBC Hgb Hct RDW 16.9 H Neutrophils # 17.8 H Neutrophils # (Manual) Lymphocytes # (Manual) Monocytes # (Manual) BUN Glucose POC Glucose (mg/dL) 340 H Phosphorus CK-MB (CK-2) Troponin I 0.073 H* 02/27/17 04:44 WBC RBC Hgb Hct RDW Neutrophils # Neutrophils # (Manual) Lymphocytes # (Manual) Monocytes # (Manual) BUN 33 H Glucose 327 H POC Glucose (mg/dL) Phosphorus 4.8 H CK-MB (CK-2) Troponin I - Diagnostic Findings Chest x-ray: image reviewed Assessment and Plan Plan: Impression: #1 Acute hypoxic respiratory failure secondary to interstitial pulmonary edema from fluid volume overload. #2 Atrial fibrillation, converted to normal sinus rhythm yesterday in the outpatient setting, anticoagulated with apixaban. #3 Chronic obstructive pulmonary disease, currently inactive and stable. #4 Prior history of chronic nicotine addiction. #5 Obstructive sleep apnea utilizing CPAP the outpatient setting. #6 Diabetes mellitus. #7 Hypertension. #8 Hyperlipidemia. Plan: The patient was seen and evaluated by Dr. Spivey. His chest x-ray and labs were reviewed. He is stable from the pulmonary and critical care standpoint. Continue to titrate down the FiO2 will maintain O2 saturations greater than 92% . He'll utilize his CPAP at night. Once his nitroglycerin drip was weaned off he could be transferred out of the intensive care unit. Cardiology is on the case as well. We will continue to follow. Time with Patient: Greater than 30
[2017-02-27 11:18] LABS: Creatine Kinase MB 2.7 ng/mL (0.0-2.4); Troponin I 0.052 ng/mL (0.000-0.034)
--- NOTE | 2017-02-27 11:22 | P.HPIM ---
History of Present Illness H&P Date: 02/27/17 Chief Complaint: Shortness of breath This is a 61-year-old male with a known past medical history of atrial fibrillation and underwent cardioversion yesterday outpatient, congestive heart failure, COPD, obstructive apnea, diabetes mellitus, hyperlipidemia and former smoker. 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 Treatment included the prednisone and the acyclovir. Patient reports that he did have sores in his mouth and those have resolved. Patient presents to the emergency room with complaints of shortness of breath. at bedside reporting that he was audibly gurgling sounding. Patient's chest x-ray showed evidence of pulmonary edema BNP was elevated at 2080. Patient's had evidence of acute respiratory failure required BiPAP in the emergency room. He was started on IV Lasix and admitted to the ICU. Patient is currently on nasal cannula cardiology and pulmonary service are following. Patient did have some chest discomfort in the emergency room now resolved. Troponins at 0.035 and 0.073. Patient does have elevated blood sugars likely related to the steroids. He'll be restarted on his Lantus and sliding scale. Patient denies any chest pain nausea or vomiting. Denies any bowel movement changes or urinary symptoms. Denies any fever chills or sweats. Review of Systems Please refer to HPI otherwise unremarkable Past Medical History Past Medical History: Heart Failure, COPD, Diabetes Mellitus, Hyperlipidemia, Hypertension Additional Past Medical History / Comment(s): CELLULITIS TO RLE, Johnson's palsy History of Any Multi-Drug Resistant Organisms: None Reported Past Surgical History: Appendectomy, Tonsillectomy Past Anesthesia/Blood Transfusion Reactions: No Reported Reaction Past Psychological History: No Psychological Hx Reported Smoking Status: Former smoker Past Alcohol Use History: None Reported Additional Past Alcohol Use History / Comment(s): cigar once or twice a year Past Drug Use History: None Reported Medications and Allergies Home Medications Medication Instructions Recorded Confirmed Type Atorvastatin [Lipitor] 40 mg PO DAILY 10/18/16 02/26/17 History Furosemide [Lasix] 40 mg PO DAILY 10/18/16 02/26/17 History Insulin Glargine,Hum.rec.anlog 40 unit SQ BID 10/18/16 02/26/17 History [Lantus Solostar] Insulin Lispro [humaLOG Kwikpen] See Protocol SQ AC-TID 10/18/16 02/26/17 History Loratadine [Claritin] 10 mg PO DAILY 10/18/16 02/26/17 History Potassium Chloride ER [K-Dur 20] 20 meq PO DAILY 10/18/16 02/26/17 History metFORMIN HCL 1,000 mg PO AC-BID 10/18/16 02/26/17 History Acyclovir [Zovirax] 800 mg PO 5XD 02/25/17 02/26/17 History predniSONE 20 mg PO BID 02/25/17 02/26/17 History Aspirin EC [Ecotrin Low Dose] 81 mg PO BID 02/26/17 02/26/17 History Metoprolol Succinate (ER) [Toprol 100 mg PO DAILY 02/26/17 02/26/17 History Xl] Allergies Allergy/AdvReac Type Severity Reaction Status Date / Time No Known Allergies Allergy Verified 02/26/17 21:11 Physical Exam Vitals: Vital Signs Temp Pulse Resp BP Pulse Ox 02/27/17 10:00 69 150/62 02/27/17 09:30 62 150/62 95 02/27/17 09:00 59 L 143/68 96 02/27/17 08:30 98.2 F 57 L 142/68 95 02/27/17 08:07 60 02/27/17 08:00 57 L 140/65 98 02/27/17 07:57 60 02/27/17 07:30 50 L 135/69 97 02/27/17 07:00 48 L 16 137/69 96 02/27/17 06:30 49 L 134/69 97 02/27/17 06:00 48 L 18 136/69 95 02/27/17 05:30 49 L 18 126/71 96 02/27/17 05:00 50 L 18 137/81 96 02/27/17 04:30 50 L 124/65 95 02/27/17 04:00 54 L 18 130/60 92 L 02/27/17 03:30 75 18 135/70 94 L 02/27/17 03:00 54 L 18 134/71 94 L 02/27/17 02:30 55 L 128/68 93 L 02/27/17 02:00 55 L 18 129/66 92 L 02/27/17 01:30 57 L 134/72 95 02/27/17 01:00 54 L 20 134/71 92 L 02/27/17 00:30 56 L 132/72 94 L 02/27/17 00:00 96.6 F L 59 L 20 155/84 95 02/26/17 23:34 60 196/109 95 02/26/17 23:30 96.6 F L 63 20 196/109 97 02/26/17 23:24 63 02/26/17 22:37 60 20 160/76 98 02/26/17 22:15 96.6 F L 02/26/17 21:46 70 02/26/17 21:33 76 02/26/17 21:05 97.8 F 90 28 H 264/135 69 L Intake and Output 02/26/17 02/27/17 02/27/17 22:59 06:59 14:59 Intake Total 408.175 380 Output Total 1999 1250 Balance -1591.825 -870 Intake: IV 140 80 Sodium Chloride 0.9% 1, 140 80 000 ml @ 20 mls/hr IV . Q24H [facility] Rx#:[id number] Intake, IV Titration 18.175 100 Amount Magnesium Sulfate-D5w Pmx 100 1 gm In Dextrose/Water 1 100ml.bag @ 100 mls/hr IVPB Q1H [facility] Rx#: [id number] Nitroglycerin-D5w Pmx 50 18.175 mg In Dextrose/Water 1 250ml.bag @ 5 MCG/MIN 1.5 mls/hr IV .Q24H STA Rx#: [id number] Oral 250 200 Output: Urine 1999 1250 Other: Voiding Method Urinal # Bowel Movements 0 Weight 161 kg 158.6 kg 158.6 kg Patient Weight 02/28/17 06:59 Weight 158.6 kg Head normocephalic Neck supple Lungs clear to auscultation bilaterally no wheezing or crackles Heart regular rate and rhythm S1-S2, no rub or gallop Abdomen is soft nontender nondistended positive bowel sounds no hepatosplenomegaly Extremities no edema Neuro alert and orientated to 3. Slight facial droop noted along the mouth on the left side from patient's Johnson's palsy Results CBC & Chem 7: 02/27/17 04:44 02/27/17 04:44 Labs: Abnormal Lab Results - Last 24 Hours (Table) 02/26/17 02/26/17 02/26/17 Range/Units 21:14 21:14 21:14 WBC 30.3 H* (3.8-10.6) k/uL RBC 6.09 H (4.30-5.90) m/uL Hgb 17.8 H (13.0-17.5) gm/dL Hct 56.4 H (39.0-53.0) % RDW 16.1 H (11.5-15.5) % Neutrophils # (1.3-7.7) k/uL Neutrophils # (Manual) 23.33 H (1.3-7.7) k/uL Lymphocytes # (Manual) 4.85 H (1.0-4.8) k/uL Monocytes # (Manual) 2.12 H (0-1.0) k/uL BUN 31 H (9-20) mg/dL Glucose 392 H (74-99) mg/dL POC Glucose (mg/dL) (75-99) mg/dL Phosphorus (2.5-4.5) mg/dL CK-MB (CK-2) 3.6 H* (0.0-2.4) ng/mL Troponin I 0.035 H* (0.000-0.034) ng/mL 02/26/17 02/27/17 02/27/17 Range/Units 23:25 04:44 04:44 WBC 19.8 H (3.8-10.6) k/uL RBC (4.30-5.90) m/uL Hgb (13.0-17.5) gm/dL Hct (39.0-53.0) % RDW 16.9 H (11.5-15.5) % Neutrophils # 17.8 H (1.3-7.7) k/uL Neutrophils # (Manual) (1.3-7.7) k/uL Lymphocytes # (Manual) (1.0-4.8) k/uL Monocytes # (Manual) (0-1.0) k/uL BUN (9-20) mg/dL Glucose (74-99) mg/dL POC Glucose (mg/dL) 340 H (75-99) mg/dL Phosphorus (2.5-4.5) mg/dL CK-MB (CK-2) (0.0-2.4) ng/mL Troponin I 0.073 H* (0.000-0.034) ng/mL 02/27/17 Range/Units 04:44 WBC (3.8-10.6) k/uL RBC (4.30-5.90) m/uL Hgb (13.0-17.5) gm/dL Hct (39.0-53.0) % RDW (11.5-15.5) % Neutrophils # (1.3-7.7) k/uL Neutrophils # (Manual) (1.3-7.7) k/uL Lymphocytes # (Manual) (1.0-4.8) k/uL Monocytes # (Manual) (0-1.0) k/uL BUN 33 H (9-20) mg/dL Glucose 327 H (74-99) mg/dL POC Glucose (mg/dL) (75-99) mg/dL Phosphorus 4.8 H (2.5-4.5) mg/dL CK-MB (CK-2) (0.0-2.4) ng/mL Troponin I (0.000-0.034) ng/mL Thrombosis Risk Factor Assmnt - Choose All That Apply Each Factor Represents 1 point: Age 41-60 years, Heart failure (<1month), Obesity (BMI >25), Swollen legs (current) Other Risk Factors: Yes (DIABETIC;HF) Each Risk Factor Represents 2 Points: Age 61-74 years Thrombosis Risk Factor Assessment Total Risk Factor Score: 6 Thrombosis Risk Factor Assessment Level: High Risk Assessment and Plan Plan: 1. Acute hypoxic respiratory failure secondary to pulmonary edema and CHF exacerbation. Patient off of BiPAP and on 5 L nasal cannula. Pulmicort service following 2. Acute pulmonary edema and acute diastolic CHF exacerbation: Echo from October 2016 shows an EF of 55-60%. Chest x-ray showing improvement. Patient started on IV Lasix 40 mg every 8 hours. Cardiology service following. BNP was 2080 on admission. Cardiology resume the Aldactone 3. 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 Atrial fibrillation converted to normal sinus rhythm yesterday with cardioversion in the outpatient setting. Resume the eliquis for anticoagulation. Awaiting cardiology clarification on the amiodarone before restarting. Also continue with the metoprolol as dosed per cardiology 5. Diabetes mellitus type 2 with elevated blood sugars secondary to steroids. At this time we'll resume patient's Lantus continue with sliding scale coverage and if sugars are still uncontrolled we'll need to start insulin drip. 6. Obstructive sleep apnea uses CPAP machine in the outpatient setting 7. Essential hypertension resume blood pressure medications 8. Hyperlipidemia 9. Recent diagnosis of Johnson's palsy in the outpatient setting currently on a prednisone taper and the acyclovir. Patient reports completing the antibiotic he was on Time with Patient: Greater than 30 (Greater than 50% of the total time spent in counseling and coordination of care.I performed an examination of the patient and discussed their management with the physician Underground Roof Bolter. I have reviewed the Physician Underground Roof Bolter's notes and agree with the documented findings and plan of care)
[2017-02-27 11:45] LABS: Glucose,Whole Blood 450 mg/dL (75-99)
[2017-02-27 11:46] LABS: Hemoglobin A1C 9.7 % (4.2-6.1)
[2017-02-27] MEDS: INSULIN GLARGINE 100 UNIT/ML 10 ML VIAL SQ SCH ×2 (12:14→21:33)
[2017-02-27] MEDS: ACYCLOVIR 800 MG TAB PO SCH ×3 (12:18→20:28)
[2017-02-27] MEDS ORDERED: INSULIN LISPRO (humaLOG) 300 UNIT/3 ML VIAL SQ ONE (12:47)
--- NOTE | 2017-02-27 14:42 | P.CRDCN ---
History of Present Illness Consult reason: hypertension, congestive heart failure History of present illness: Patient came in the hospital complaining of shortness of breath. His blood pressure was very high nevertheless he was given high doses of steroids. He is already on 60 mg by mouth daily. Chest x-ray was read as likely pulmonary edema. ECG showed sinus rhythm 87 beats a minute Yesterday he underwent successful electrical cardioversion for atrial fibrillation. The ER note states he had a recent cardiac ablation which is an error. Postprocedure he was monitored in the [facility] for a few hours and was comfortable without any breathing problems. When he went home he was doing fine when he suddenly started getting short of breath. His blood pressure is very high on admission. He has been on anticoagulation for A. fib 9 any chest discomfort dizziness loss of consciousness Past history of diastolic heart failure left ventricular hypertrophy chronic diastolic heart failure preserved LV systolic function diabetes adult-onset dyslipidemia, essential hypertension and persistent symptomatic atrial fibrillation Past surgical history of appendectomy and tonsillectomy Previously he was a smoker nor alcohol use NO KNOWN DRUG ALLERGIES Medication list was reviewed and as documented in the chart he is taking 60 mg of prednisone and in addition to this upon admission he was given high dose IV methylprednisolone This morning when I saw him he looked comfortable he is lying flat in bed his blood pressure was in the 140s. At this time he was afebrile heart rhythm was regular heart rates in the 60s breath sounds are reduced bilaterally but no rhonchi no crackles heart sounds S1 and S2 are normal no murmurs no gallops abdomen soft nontender. Extremities warm no edema Labs are reviewed white count is elevated his been on steroids hemoglobin is normal, blood sugar is elevated creatinine is normal borderline cardiac enzymes Impression Flash pulmonary edema very high blood pressures known underlying chronic diastolic failure with moderate to severe left ventricular hypertrophy, acute and chronic diastolic heart failure Morbid obesity Persistent atrial fibrillation, electrical cardioversion yesterday successfully to sinus rhythm and maintain sinus rhythm Currently also on amiodarone 4 mg by mouth daily Hypertension Adult-onset diabetes type 2 on treatment Suggest No more intravenous steroids did taper off oral steroids. 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, Johnson's palsy History of Any Multi-Drug Resistant Organisms: None Reported Past Surgical History: Appendectomy, Tonsillectomy Past Anesthesia/Blood Transfusion Reactions: No Reported Reaction Past Psychological History: No Psychological Hx Reported Smoking Status: Former smoker Past Alcohol Use History: None Reported Additional Past Alcohol Use History / Comment(s): cigar once or twice a year Past Drug Use History: None Reported Medications and Allergies Home Medications Medication Instructions Recorded Confirmed Type RX: Atorvastatin [Lipitor] 40 mg PO DAILY 10/18/16 02/26/17 History RX: Furosemide [Lasix] 40 mg PO DAILY 10/18/16 02/26/17 History RX: Insulin Glargine,Hum.rec.anlog 40 unit SQ BID 10/18/16 02/26/17 History [Lantus Solostar] RX: Insulin Lispro [humaLOG See Protocol SQ AC-TID 10/18/16 02/26/17 History Kwikpen] RX: Loratadine [Claritin] 10 mg PO DAILY 10/18/16 02/26/17 History RX: Potassium Chloride ER [K-Dur 20 meq PO DAILY 10/18/16 02/26/17 History 20] RX: metFORMIN HCL 1,000 mg PO AC-BID 10/18/16 02/26/17 History Acyclovir [Zovirax] 800 mg PO 5XD 02/25/17 02/26/17 History RX: predniSONE 20 mg PO BID 02/25/17 02/26/17 History Aspirin EC [Ecotrin Low Dose] 81 mg PO BID 02/26/17 02/26/17 History Metoprolol Succinate (ER) [Toprol 100 mg PO DAILY 02/26/17 02/26/17 History Xl] Allergies Allergy/AdvReac Type Severity Reaction Status Date / Time No Known Allergies Allergy Verified 02/26/17 21:11 Physical Exam Vitals: Vital Signs Temp Pulse Resp BP Pulse Ox 02/27/17 13:00 70 152/77 96 02/27/17 12:30 97.4 F L 65 146/66 97 02/27/17 12:00 62 16 139/67 95 02/27/17 11:42 64 02/27/17 11:32 60 02/27/17 11:30 60 157/70 90 L 02/27/17 11:00 63 138/73 95 02/27/17 10:30 64 02/27/17 10:00 69 150/62 02/27/17 09:30 62 150/62 95 02/27/17 09:00 59 L 143/68 96 02/27/17 08:30 98.2 F 57 L 142/68 95 02/27/17 08:07 60 02/27/17 08:00 57 L 140/65 98 02/27/17 07:57 60 02/27/17 07:30 50 L 135/69 97 02/27/17 07:00 48 L 16 137/69 96 02/27/17 06:30 49 L 134/69 97 02/27/17 06:00 48 L 18 136/69 95 02/27/17 05:30 49 L 18 126/71 96 02/27/17 05:00 50 L 18 137/81 96 02/27/17 04:30 50 L 124/65 95 02/27/17 04:00 54 L 18 130/60 92 L 02/27/17 03:30 75 18 135/70 94 L 02/27/17 03:00 54 L 18 134/71 94 L 02/27/17 02:30 55 L 128/68 93 L 02/27/17 02:00 55 L 18 129/66 92 L 02/27/17 01:30 57 L 134/72 95 02/27/17 01:00 54 L 20 134/71 92 L 02/27/17 00:30 56 L 132/72 94 L 02/27/17 00:00 96.6 F L 59 L 20 155/84 95 02/26/17 23:34 60 196/109 95 02/26/17 23:30 96.6 F L 63 20 196/109 97 02/26/17 23:24 63 02/26/17 22:37 60 20 160/76 98 02/26/17 22:15 96.6 F L 02/26/17 21:46 70 02/26/17 21:33 76 02/26/17 21:05 97.8 F 90 28 H 264/135 69 L Intake and Output 02/26/17 02/27/17 02/27/17 22:59 06:59 14:59 Intake Total 408.175 640 Output Total 1999 1849 Balance -1591.825 -1210 Intake: IV 140 140 Sodium Chloride 0.9% 1, 140 140 000 ml @ 20 mls/hr IV . Q24H DOUGLAS Rx#:[id number] Intake, IV Titration 18.175 100 Amount Magnesium Sulfate-D5w Pmx 100 1 gm In Dextrose/Water 1 100ml.bag @ 100 mls/hr IVPB Q1H DOUGLAS Rx#: [id number] Nitroglycerin-D5w Pmx 50 18.175 mg In Dextrose/Water 1 250ml.bag @ 5 MCG/MIN 1.5 mls/hr IV .Q24H STA Rx#: [id number] Oral 250 400 Output: Urine 1999 1849 Other: Voiding Method Urinal Urinal # Bowel Movements 0 Weight 161 kg 158.6 kg 158.6 kg Patient Weight 02/28/17 06:59 Weight 158.6 kg Results 02/27/17 04:44 02/27/17 04:44 Cardiac Enzymes 02/26/17 02/26/17 02/27/17 Range/Units 21:14 21:14 04:44 AST 27 (17-59) U/L CK-MB (CK-2) 3.6 H* 2.4 (0.0-2.4) ng/mL Troponin I 0.035 H* 0.073 H* (0.000-0.034) ng/mL 02/27/17 Range/Units 10:14 AST (17-59) U/L CK-MB (CK-2) 2.7 H* (0.0-2.4) ng/mL Troponin I 0.052 H* (0.000-0.034) ng/mL Coagulation 02/26/17 Range/Units 21:14 PT 10.7 (9.0-12.0) sec APTT 22.5 (22.0-30.0) sec CBC 02/26/17 02/27/17 Range/Units 21:14 04:44 WBC 30.3 H* 19.8 H (3.8-10.6) k/uL RBC 6.09 H 5.24 (4.30-5.90) m/uL Hgb 17.8 H 15.5 (13.0-17.5) gm/dL Hct 56.4 H 48.7 (39.0-53.0) % Plt Count 315 237 (150-450) k/uL Comprehensive Metabolic Panel 02/26/17 02/27/17 Range/Units 21:14 04:44 Sodium 142 137 (137-145) mmol/L Potassium 4.9 4.6 (3.5-5.1) mmol/L Chloride 101 101 (98-107) mmol/L Carbon Dioxide 25 25 (22-30) mmol/L BUN 31 H 33 H (9-20) mg/dL Creatinine 1.20 1.10 (0.66-1.25) mg/dL Glucose 392 H 327 H (74-99) mg/dL Calcium 9.7 8.5 (8.4-10.2) mg/dL AST 27 (17-59) U/L ALT 50 (21-72) U/L Alkaline Phosphatase 73 (38-126) U/L Total Protein 7.9 (6.3-8.2) g/dL Albumin 4.9 (3.5-5.0) g/dL Current Medications Generic Name Dose Route Start Last Admin Trade Name Freq PRN Reason Stop Dose Admin Hydrocodone Bitart/Acetaminophen 1 each 02/27/17 00:41 02/27/17 01:33 [place] 5-325 PO 1 each Q6HR PRN Administration Pain Acyclovir 800 mg 02/27/17 11:15 02/27/17 12:18 Zovirax PO 800 mg 5XD DOUGLAS Administration Albuterol/Ipratropium 3 ml 02/27/17 08:00 02/27/17 11:30 Duoneb 0.5 Mg-3 Mg/3 Ml Soln INHALATION 3 ml RT-QID DOUGLAS Administration Albuterol/Ipratropium 3 ml 02/26/17 23:02 Duoneb 0.5 Mg-3 Mg/3 Ml Soln INHALATION RT-Q2H PRN Shortness Of Breath Or Wheezing Apixaban 5 mg 02/27/17 21:00 Eliquis PO BID [facility] Aspirin 81 mg 02/27/17 21:00 Aspirin PO BID [facility] Atorvastatin Calcium 40 mg 02/28/17 09:00 Lipitor PO DAILY [facility] Famotidine 20 mg 02/27/17 09:00 02/27/17 08:56 Pepcid PO 20 mg BID DOUGLAS Administration Furosemide 40 mg 02/27/17 21:00 Lasix IV Q12HR DOUGLAS Nitroglycerin/Dextrose 50 mg/ 250 mls @ 1.5 mls/hr 02/26/17 21:11 02/27/17 04 :32 IV Solution IV 02/27/17 21:10 5 mcg/min .Q24H STA 1.5 mls/hr Protocol Titration 5 MCG/MIN Sodium Chloride 1,000 mls @ 20 mls/hr 02/27/17 01:00 02/27/17 01:36 Saline 0.9% IV 20 mls/hr .Q24H DOUGLAS Administration Insulin Glargine 40 unit 02/27/17 11:10 02/27/17 12:14 Lantus SQ 40 unit BID DOUGLAS Administration Insulin Human Lispro 0 unit 02/27/17 07:30 02/27/17 06:21 Humalog SQ 14 unit AC-TID DOUGLAS Administration Protocol Lisinopril 20 mg 02/27/17 21:00 Zestril PO BID [facility] Loratadine 10 mg 02/28/17 09:00 Claritin PO DAILY [facility] Metformin HCl 1,000 mg 02/27/17 17:30 Glucophage PO AC-BID DOUGLAS Metoprolol Succinate 50 mg 02/27/17 09:00 02/27/17 09:05 Toprol Xl PO 50 mg DAILY DOUGLAS Administration Naloxone HCl 0.2 mg 02/27/17 00:55 Narcan IV Q2M PRN Opioid Reversal Nitroglycerin 0.4 mg 02/26/17 21:12 Nitrostat SUBLINGUAL Q5M PRN Chest Pain Potassium Chloride 20 meq 02/28/17 09:00 K-Dur 20 PO DAILY [facility] Spironolactone 25 mg 02/27/17 09:00 02/27/17 09:05 Aldactone PO 25 mg DAILY DOUGLAS Administration Intake and Output 02/26/17 02/27/17 02/27/17 22:59 06:59 14:59 Intake Total 408.175 640 Output Total 2721 0221 Balance -1591.825 -1210 Intake: IV 140 140 Sodium Chloride 0.9% 1, 140 140 000 ml @ 20 mls/hr IV . Q24H DOUGLAS Rx#:[id number] Intake, IV Titration 18.175 100 Amount Magnesium Sulfate-D5w Pmx 100 1 gm In Dextrose/Water 1 100ml.bag @ 100 mls/hr IVPB Q1H [facility] Rx#: [id number] Nitroglycerin-D5w Pmx 50 18.175 mg In Dextrose/Water 1 250ml.bag @ 5 MCG/MIN 1.5 mls/hr IV .Q24H STA Rx#: [id number] Oral 250 400 Output: Urine 2000 1850 Other: Voiding Method Urinal Urinal # Bowel Movements 0 Weight 161 kg 158.6 kg 158.6 kg Patient Weight 02/28/17 06:59 Weight 158.6 kg 02/27/17 04:44 02/27/17 04:44
[2017-02-27] MEDS: metFORMIN 500 MG TAB PO SCH (16:31)
--- NOTE | 2017-02-27 16:42 | ECHOF ---
Referral Reason:Heart Failure MEASUREMENTS -------- HEIGHT: 182.9 cm WEIGHT: 158.3 kg BP: 142/68 RVIDd: 2.6 cm (< 3.3) IVSd: 1.6 cm (0.6 - 1.1) LVIDd: 4.9 cm (3.9 - 5.3) LVPWd: 1.7 cm (0.6 - 1.1) IVSs: 2.4 cm LVIDs: 3.7 cm LVPWs: 1.9 cm Ao Diam: 3.9 cm (2.0 - 3.7) AV Cusp: 1.7 cm (1.5 - 2.6) LA Diam: 4.9 cm (2.7 - 3.8) MV EXCURSION: 17.354 mm (> 18.000) MV EF SLOPE: 29 mm/s (70 - 150) EPSS: 1.0 cm MV E Carlos: 1.27 m/s MV DecT: 290 ms MV A Carlos: 0.38 m/s MV E/A Ratio: 3.33 AV maxP.90 mmHg AV meanP.99 mmHg RAP: 5.00 mmHg RVSP: 15.95 mmHg FINDINGS -------- Sinus rhythm. Morbid Obesity This was a techncally difficult study with suboptimal views, , Definity utilized for enhancement of images. There is mild concentric left ventricular hypertrophy. Overall left ventricular systolic function is normal with, an EF between 55 - 60 %. The right ventricle is normal in size. The left atrial size is normal. The right atrial size is normal. 1.5MG OF DEFINITY UTLIZED: 2 OR MORE WALL SEGMENTS NOT VISUALIZED. Peak/mean gradient across the Aortic Valve is 14.90mmHg / 8.99mmHg. Mild mitral annular calcification present. Mild mitral regurgitation is present. Mild tricuspid regurgitation present. There is no evidence of pulmonary hypertension. The right ventricular systolic pressure, as measured by Doppler, is 15.95mmHg. The pulmonic valve was not well visualized. The aortic root size is normal. There is no pericardial effusion. CONCLUSIONS -------- 1. Morbid Obesity 2. There is no evidence of pulmonary hypertension. 3. The right ventricular systolic pressure, as measured by Doppler, is 15.95mmHg. 4. The pulmonic valve was not well visualized. 5. There is no pericardial effusion. 6. This was a techncally difficult study with suboptimal views, , Definity utilized for enhancement of images. 7. There is mild concentric left ventricular hypertrophy. 8. Overall left ventricular systolic function is normal with, an EF between 55 - 60 %. 9. 1.5MG OF DEFINITY UTLIZED: 2 OR MORE WALL SEGMENTS NOT VISUALIZED. 10. Peak/mean gradient across the Aortic Valve is 14.90mmHg / 8.99mmHg. 11. Mild mitral annular calcification present. 12. Mild mitral regurgitation is present. 13. Mild tricuspid regurgitation present. B[employer]QUE PLACER: Malathi Payne RDCS
[2017-02-27 17:18] LABS: Glucose,Whole Blood 336 mg/dL (75-99)
[2017-02-27] MEDS: ASPIRIN 81 MG CHEW PO SCH (20:28)
[2017-02-27] MEDS: APIXABAN 5 MG TAB PO SCH (20:29)
[2017-02-27] MEDS: LISINOPRIL 20 MG TAB PO SCH (20:29)
[2017-02-27 21:00] LABS: Glucose,Whole Blood 347 mg/dL (75-99)
[2017-02-27 22:50] LABS: Glucose,Whole Blood 331 mg/dL (75-99)
[2017-02-28] MEDS: ACYCLOVIR 800 MG TAB PO SCH ×3 (00:06→11:59)
[2017-02-28 00:09] LABS: Glucose,Whole Blood 279 mg/dL (75-99)
[2017-02-28 05:35] LABS: Glucose,Whole Blood 217 mg/dL (75-99)
[2017-02-28 05:36] LABS: Anisocytosis Slight; Basophils # (A) 0.1 k/uL (0-0.2); Basophils % (A) 0 %; CH 30.5; CHCM 33.7; Eosinophils % (A) 0 %; HCT 45.8 % (39.0-53.0); HDW 2.24; HGB 14.7 gm/dL (13.0-17.5); Luc # (Auto) 0.28; Luc % (Auto) 1; Lymphocytes % (A) 8 %; MCH 29.3 pg (25.0-35.0); MCHC 32.2 g/dL (31.0-37.0); Mean Platelet Volume 7.5; Monocytes # (A) 1.1 k/uL (0-1.0); Monocytes % (A) 5 %; Neutrophils # (A) 21.2 k/uL (1.3-7.7); Neutrophils % (A) 86 %; RBC 5.03 m/uL (4.30-5.90); WBC 24.7 k/uL (3.8-10.6)
[2017-02-28 05:54] LABS: Anion Gap 12 mmol/L; Blood Urea Nitrogen 37 mg/dL (9-20); Calcium 8.4 mg/dL (8.4-10.2); Carbon Dioxide 27 mmol/L (22-30); Chloride 99 mmol/L (98-107); Glucose 238 mg/dL (74-99); Magnesium 2.1 mg/dL (1.6-2.3); Non-African American GFR(MDRD) >60 (>60 ml/min/1.73 sqM); Phosphorous 4.4 mg/dL (2.5-4.5); Potassium 3.9 mmol/L (3.5-5.1); Sodium 138 mmol/L (137-145)
--- NOTE | 2017-02-28 07:12 | XR ---
EXAMINATION TYPE: XR chest 1V DATE OF EXAM: 02/28/2017 COMPARISON: 02/27/2017 HISTORY: Shortness of breath TECHNIQUE: Single frontal view of the chest is obtained. FINDINGS: Persistent right perihilar infiltrate. Heart remains enlarged there is mild interstitial p rominence. A tiny effusion suspected. No pneumothorax. Arthropathy shoulders. IMPRESSION: 1. Right perihilar infiltrate stable correlate for mild venous congestion.
[2017-02-28] MEDS ORDERED: Potassium Replacement Protocol 1 EACH MISC MISCELLANE PRN (08:23)
[2017-02-28] MEDS: IPRATROPIUM-ALBUTEROL 3 ML NEB INHALATION SCH ×2 (08:24→11:45)
[2017-02-28] MEDS: APIXABAN 5 MG TAB PO SCH (08:24)
[2017-02-28] MEDS: metFORMIN 500 MG TAB PO SCH (08:25)
[2017-02-28] MEDS: LISINOPRIL 20 MG TAB PO SCH (08:25)
[2017-02-28] MEDS: METOPROLOL SUCCINATE (ER) 50 MG TAB.ER.24H PO SCH (08:25)
[2017-02-28] MEDS: FAMOTIDINE 20 MG TAB PO SCH (08:25)
[2017-02-28] MEDS: ASPIRIN 81 MG CHEW PO SCH (08:25)
[2017-02-28] MEDS ORDERED: LISINOPRIL 20 MG TAB PO SCH (09:00)
[2017-02-28] MEDS ORDERED: ATORVASTATIN 40 MG TAB PO SCH (09:00)
[2017-02-28] MEDS ORDERED: LORATADINE 10 MG TAB PO SCH (09:00)
[2017-02-28] MEDS ORDERED: POTASSIUM CHLORIDE ER 20 MEQ TAB.ER PO SCH ×2 (09:00)
[2017-02-28] MEDS ORDERED: FUROSEMIDE 10 MG/ML 4 ML VIAL IV SCH (09:00)
[2017-02-28] MEDS: INSULIN GLARGINE 100 UNIT/ML 10 ML VIAL SQ SCH (09:42)
--- NOTE | 2017-02-28 10:46 | P.PN ---
Subjective This is a 51-year-old male who has a history of underlying asthma peripheral vascular occlusive disease and was recently started on both Coumadin and Lovenox following a surgery done at [facility]. The patient apparently presented here late last week with a femoral occlusion. Was transferred to [facility]. The patient apparently had a fem-pop bypass and the patient was put on Lovenox to bridge him with anticoagulation with Coumadin. Apparently he started having a bowel movement some last night which had dark initially and then became more bloody. He apparently was found be very anemic in the emergency room today. About 6 days at [facility]. This name of surgeon is not known. The patient was placed on Lovenox and Coumadin when he was discharged there. The patient has received nor is quite received 2 units of PRBCs and 2 units of fresh frozen plasma. The patient apparently is feeling very weak and fatigued. Does have a history of underlying asthma. Takes an albuterol inhaler for that. Also uses Xanax for anxiety. Also takes Celexa fish oil and Aleve. Also apparently on aspirin Lipitor the Lovenox and warfarin and oxycodone. ALLERGIES are denied. Medical history is positive for a previous history of a DVT and asthma. Also history of alcohol abuse. Surgical history includes the recent fem-pop bypass. Social history is positive for previous tobacco use. Has a previous history of heavy alcohol use. No illicit drug use. The patient will be made moved to the ICU. Blood has been started as well as fresh frozen plasma. He received vitamin K as well. The patient is seen again today 02/28/2017 in follow-up in the intensive care unit. He is awake and alert in no acute distress. He is currently sitting up in the chair at the bedside. He denies any shortness of breath, cough or congestion. Maintaining good O2 saturations in the 90s on room air. His chest x-ray does show improvement. There is some right perihilar infiltrate which is stable. Continued on Lasix 40 mg every 12 hours. Remaining in a negative balance. He is afebrile. Hemodynamically stable. He is in normal sinus rhythm. Objective - Vital Signs Vital signs: Vital Signs Temp 98.4 F 02/28/17 08:00 Pulse 73 02/28/17 08:25 Resp 18 02/28/17 08:25 BP 154/76 02/28/17 08:00 Pulse Ox 94 L 02/28/17 08:00 Intake & Output 02/27/17 02/28/17 02/28/17 18:59 06:59 18:59 Intake Total 1080 60 220 Output Total 3420 250 Balance -2340 60 -30 Weight 158.6 kg 156.8 kg Intake: IV 220 60 Sodium Chloride 0.9% 1, 220 60 000 ml @ 20 mls/hr IV . Q24H DOUGLAS Rx#:[id number] Intake, IV Titration 100 Amount Magnesium Sulfate-D5w Pmx 100 1 gm In Dextrose/Water 1 100ml.bag @ 100 mls/hr IVPB Q1H DOUGLAS Rx#: [id number] Oral 760 220 Output: Urine 3420 250 Other: Voiding Method Urinal Toilet Toilet Urinal Urinal # Voids 1 - Exam GENERAL EXAM: Alert, active, comfortable in no apparent distress. HEAD: Normocephalic. EYES: Normal reaction of pupils, equal size. NOSE: Clear with pink turbinates. THROAT: No erythema or exudates. NECK: No masses, no JVD. CHEST: No chest wall deformity. LUNGS: Equal air entry with us in the posterior bases. CVS: S1 and S2 normal with no audible murmurs, regular rhythm. ABDOMEN: No hepatosplenomegaly, normal bowel sounds, no guarding or rigidity. SPINE: No scoliosis or deformity SKIN: No rashes CENTRAL NERVOUS SYSTEM: No focal deficits, tone is normal in all 4 extremities. Extremities: There is no significant peripheral edema. No clubbing, no cyanosis. Peripheral pulses are intact. - Labs CBC & Chem 7: 02/28/17 04:52 02/28/17 04:52 Labs: Abnormal Lab Results - Last 24 Hours (Table) 02/26/17 02/27/17 02/27/17 Range/Units 21:14 10:14 11:43 WBC (3.8-10.6) k/uL RDW (11.5-15.5) % Neutrophils # (1.3-7.7) k/uL Monocytes # (0-1.0) k/uL BUN (9-20) mg/dL Glucose (74-99) mg/dL POC Glucose (mg/dL) 450 H (75-99) mg/dL Hemoglobin A1c 9.7 H (4.2-6.1) % CK-MB (CK-2) 2.7 H* (0.0-2.4) ng/mL Troponin I 0.052 H* (0.000-0.034) ng/mL 02/27/17 02/27/17 02/27/17 Range/Units 17: 20:59 22:48 WBC (3.8-10.6) k/uL RDW (11.5-15.5) % Neutrophils # (1.3-7.7) k/uL Monocytes # (0-1.0) k/uL BUN (9-20) mg/dL Glucose (74-99) mg/dL POC Glucose (mg/dL) 336 H 347 H 331 H (75-99) mg/dL Hemoglobin A1c (4.2-6.1) % CK-MB (CK-2) (0.0-2.4) ng/mL Troponin I (0.000-0.034) ng/mL 02/28/17 02/28/17 02/28/17 Range/Units 00:08 04:52 04:52 WBC 24.7 H (3.8-10.6) k/uL RDW 17.0 H (11.5-15.5) % Neutrophils # 21.2 H (1.3-7.7) k/uL Monocytes # 1.1 H (0-1.0) k/uL BUN 37 H (9-20) mg/dL Glucose 238 H (74-99) mg/dL POC Glucose (mg/dL) 279 H (75-99) mg/dL Hemoglobin A1c (4.2-6.1) % CK-MB (CK-2) (0.0-2.4) ng/mL Troponin I (0.000-0.034) ng/mL 02/28/17 Range/Units 05:33 WBC (3.8-10.6) k/uL RDW (11.5-15.5) % Neutrophils # (1.3-7.7) k/uL Monocytes # (0-1.0) k/uL BUN (9-20) mg/dL Glucose (74-99) mg/dL POC Glucose (mg/dL) 217 H (75-99) mg/dL Hemoglobin A1c (4.2-6.1) % CK-MB (CK-2) (0.0-2.4) ng/mL Troponin I (0.000-0.034) ng/mL Assessment and Plan Plan: Impression: #1 Acute hypoxic respiratory failure secondary to interstitial pulmonary edema from fluid volume overload. #2 Atrial fibrillation, converted to normal sinus rhythm yesterday in the outpatient setting, anticoagulated with apixaban. #3 Chronic obstructive pulmonary disease, currently inactive and stable. #4 Prior history of chronic nicotine addiction. #5 Obstructive sleep apnea utilizing CPAP the outpatient setting. #6 Diabetes mellitus. #7 Hypertension. #8 Hyperlipidemia. Plan: The patient was seen and evaluated by Dr. Spivey. His chest x-ray and labs were reviewed. He is stable from the pulmonary and critical care standpoint. Continue to titrate down the FiO2 will maintain O2 saturations greater than 92% . He'll utilize his CPAP at night. The patient may be able to be discharged home once cleared by cardiology. We will continue to follow.
[2017-02-28 12:00] LABS: Glucose,Whole Blood 316 mg/dL (75-99)
[2017-02-28 12:07] VITALS: BP 149/69; PULSE 60; RESP 17; TEMP 98.5
[2017-02-28] MEDS ORDERED: INSULIN LISPRO (humaLOG) 300 UNIT/3 ML VIAL SQ SCH ×2 (12:30→21:23)
--- NOTE | 2017-02-28 13:24 | P.PN ---
Subjective Patient is doing better. He is lying flat in bed his blood pressure still not completely controlled is in the 140s-150s systolic with diastolics within normal range. Pulse rate in the 60s and 70s he is in sinus rhythm is afebrile is lying flat in bed. Breath sounds are normal no rhonchi no crackles heart sounds are normal and regular abdomen soft nontender extremities warm no edema Labs are reviewed sodium 138 potassium 3.9 GFR 60 BUN 37 NT proBNP 2300 Impression Hypertensive crisis with acute diastolic failure, acute and chronic Moderate to severe left ventricular hypertrophy with preserved LV systolic function Atrial fibrillation, persistent status post electrical cardioversion currently on 400 mg of amiodarone Morbid obesity Obstructive sleep apnea Recently started on steroids Suggest Taper off steroids Discussed with the nurse Lisinopril is increased to 20 mg twice daily Potassium oral has been stopped Spironolactone and increase to 50 g by mouth daily Toprol-XL reduced to 50 mg by mouth daily Continue all other medications and taper of steroids Continue anticoagulation Low salt diet I will see him again in about 2-3 weeks Objective - Vital Signs Vital signs: Vital Signs Temp 98.5 F 02/28/17 12:05 Pulse 60 02/28/17 12:05 Resp 17 02/28/17 12:05 BP 149/69 02/28/17 12:05 Pulse Ox 93 L 02/28/17 12:05 Intake & Output 02/27/17 02/28/17 02/28/17 18:59 06:59 18:59 Intake Total 1080 60 220 Output Total 3420 250 Balance -2340 60 -30 Weight 158.6 kg 156.8 kg Intake: IV 220 60 Sodium Chloride 0.9% 1, 220 60 000 ml @ 20 mls/hr IV . Q24H DOUGLAS Rx#:[id number] Intake, IV Titration 100 Amount Magnesium Sulfate-D5w Pmx 100 1 gm In Dextrose/Water 1 100ml.bag @ 100 mls/hr IVPB Q1H DOUGLAS Rx#: [id number] Oral 760 220 Output: Urine 3420 250 Other: Voiding Method Urinal Toilet Toilet Urinal Urinal # Voids 1 2 - Labs CBC & Chem 7: 02/28/17 04:52 02/28/17 04:52 Labs: Abnormal Lab Results - Last 24 Hours (Table) 02/27/17 02/27/17 02/27/17 Range/Units 17:17 20:59 22:48 WBC (3.8-10.6) k/uL RDW (11.5-15.5) % Neutrophils # (1.3-7.7) k/uL Monocytes # (0-1.0) k/uL BUN (9-20) mg/dL Glucose (74-99) mg/dL POC Glucose (mg/dL) 336 H 347 H 331 H (75-99) mg/dL 02/28/17 02/28/17 02/28/17 Range/Units 00:08 04:52 04:52 WBC 24.7 H (3.8-10.6) k/uL RDW 17.0 H (11.5-15.5) % Neutrophils # 21.2 H (1.3-7.7) k/uL Monocytes # 1.1 H (0-1.0) k/uL BUN 37 H (9-20) mg/dL Glucose 238 H (74-99) mg/dL POC Glucose (mg/dL) 279 H (75-99) mg/dL 02/28/17 02/28/17 Range/Units 05:33 11:58 WBC (3.8-10.6) k/uL RDW (11.5-15.5) % Neutrophils # (1.3-7.7) k/uL Monocytes # (0-1.0) k/uL BUN (9-20) mg/dL Glucose (74-99) mg/dL POC Glucose (mg/dL) 217 H 316 H (75-99) mg/dL
--- NOTE | 2017-02-28 13:33 | P.DS ---
Providers Date of admission: 02/26/17 21:54 Expected date of discharge: 02/28/17 Attending physician: Kaye Smith Consults: 02/26/17 21:49 Consult Physician Routine Consulting Provider: Zaria Little Consult Reason/Comments: copd Do you want consulting provider notified?: Yes Consult Physician Routine Consulting Provider: Lenka Bartlett Consult Reason/Comments: chf Do you want consulting provider notified?: Yes Primary care physician: Anna Rizvi Hospital Course: Diagnoses on Discharge: 1. Acute hypoxic respiratory failure secondary to pulmonary edema and CHF exacerbation. Patient off of BiPAP and on 5 L nasal cannula. Pulmicort service following 2. Acute pulmonary edema and acute diastolic CHF exacerbation: Echo from October 2016 shows an EF of 55-60%. Chest x-ray showing improvement. Patient started on IV Lasix 40 mg every 8 hours. Cardiology service following. BNP was 2080 on admission. Cardiology resume the Aldactone 3. 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 Atrial fibrillation converted to normal sinus rhythm yesterday with cardioversion in the outpatient setting. Resume the eliquis for anticoagulation. Awaiting cardiology clarification on the amiodarone before restarting. Also continue with the metoprolol as dosed per cardiology 5. Diabetes mellitus type 2 with elevated blood sugars secondary to steroids. At this time we'll resume patient's Lantus continue with sliding scale coverage and if sugars are still uncontrolled we'll need to start insulin drip. 6. Obstructive sleep apnea uses CPAP machine in the outpatient setting 7. Essential hypertension resume blood pressure medications 8. Hyperlipidemia 9. Recent diagnosis of Johnson's palsy in the outpatient setting currently on a prednisone taper and the acyclovir. Hospital course: This is a 61-year-old male with a known past medical history of atrial fibrillation and underwent cardioversion yesterday outpatient, congestive heart failure, COPD, obstructive apnea, diabetes mellitus, hyperlipidemia and former smoker. 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 Treatment included the prednisone and the acyclovir. Patient reports that he did have sores in his mouth and those have resolved. Patient presents to the emergency room with complaints of shortness of breath. at bedside reporting that he was audibly gurgling sounding. Patient's chest x-ray showed evidence of pulmonary edema BNP was elevated at 2080. Patient's had evidence of acute respiratory failure required BiPAP in the emergency room. He was started on IV Lasix and admitted to the ICU. Patient is currently on nasal cannula cardiology and pulmonary service are following. Patient did have some chest discomfort in the emergency room now resolved. Troponins at 0.035 and 0.073. Patient does have elevated blood sugars likely related to the steroids. He was restarted on his Lantus and sliding scale. Patient was admitted to ICU he was treated with IV Lasix and improved gradually his home Lasix dose was changed from 40 mg daily to 60 mg daily home Aldactone dose was increased from 25 to 50 mg daily. Dose of metoprolol was decreased from 100 mg daily to 50 mg daily. And dose of lisinopril was increased to 20 mg twice daily. Patient tolerated well he was able to breathe without difficulty he was ambulating he was discharged home on 02/28/2017 he will follow up with his primary care physician Dr. Rizvi within 1 week he will also follow was cardiology and pulmonary as outpatient in the next 1-2 weeks. Patient Condition at Discharge: Serious Plan - Discharge Summary New Discharge Prescriptions: New Furosemide [Lasix] 60 mg PO DAILY #30 tab Lisinopril [Zestril] 20 mg PO BID tab Metoprolol Succinate (ER) [Toprol XL] 50 mg PO DAILY tab Nitroglycerin Sl Tabs [Nitrostat] 0.4 mg SUBLINGUAL Q5M PRN tab PRN Reason: Chest Pain Spironolactone [Aldactone] 50 mg PO DAILY #30 tab Continue Atorvastatin [Lipitor] 40 mg PO DAILY metFORMIN HCL 1,000 mg PO AC-BID Loratadine [Claritin] 10 mg PO DAILY Insulin Glargine,Hum.rec.anlog [Lantus Solostar] 40 unit SQ BID Apixaban [Eliquis] 5 mg PO BID #60 tab Amiodarone [Cordarone] 200 mg PO BID #120 tab predniSONE 20 mg PO BID Acyclovir [Zovirax] 800 mg PO 5XD Aspirin EC [Ecotrin Low Dose] 81 mg PO BID Discontinued Potassium Chloride ER [K-Dur 20] 20 meq PO DAILY Insulin Lispro [humaLOG Kwikpen] See Protocol SQ AC-TID Furosemide [Lasix] 40 mg PO DAILY Lisinopril [Zestril] 20 mg PO DAILY #30 tab Spironolactone [Aldactone] 25 mg PO DAILY #30 tab Metoprolol Succinate (ER) [Toprol Xl] 100 mg PO DAILY Discharge Medication List Atorvastatin [Lipitor] 40 mg PO DAILY 10/18/16 [History] Insulin Glargine,Hum.rec.anlog [Lantus Solostar] 40 unit SQ BID 10/18/16 [ History] Loratadine [Claritin] 10 mg PO DAILY 10/18/16 [History] metFORMIN HCL 1,000 mg PO AC-BID 10/18/16 [History] Amiodarone [Cordarone] 200 mg PO BID #120 tab 10/24/16 [Rx] Apixaban [Eliquis] 5 mg PO BID #60 tab 10/24/16 [Rx] Acyclovir [Zovirax] 800 mg PO 5XD 02/25/17 [History] predniSONE 20 mg PO BID 02/25/17 [History] Aspirin EC [Ecotrin Low Dose] 81 mg PO BID 02/26/17 [History] Furosemide [Lasix] 60 mg PO DAILY #30 tab 02/28/17 [Rx] Lisinopril [Zestril] 20 mg PO BID tab 02/28/17 [Rx] Metoprolol Succinate (ER) [Toprol XL] 50 mg PO DAILY tab 02/28/17 [Rx] Nitroglycerin Sl Tabs [Nitrostat] 0.4 mg SUBLINGUAL Q5M PRN tab 02/28/17 [Rx] Spironolactone [Aldactone] 50 mg PO DAILY #30 tab 02/28/17 [Rx] Follow up Appointment(s)/Referral(s): Anna Rizvi MD [Primary Care Provider] - 1-2 days
[2017-02-28] MEDS ORDERED: predniSONE 20 MG TAB PO STA (14:26)
== END 2017-02-28 16:17 | disposition home or self-care (01) | DRG 291 ==
LOC: EC 21:02 → 6ICU 21:54
PROVIDERS: ADMIT Internal Medicine; ATTEND Internal Medicine
DX: I11.0 Hypertensive heart disease with heart failure (principal); J96.01 Acute respiratory failure with hypoxia; I48.1 Persistent atrial fibrillation; E11.65 Type 2 diabetes mellitus with hyperglycemia; Z68.42 Body mass index [BMI] 45.0-49.9, adult; I16.9 Hypertensive crisis, unspecified; E66.01 Morbid (severe) obesity due to excess calories; I50.33 Acute on chronic diastolic (congestive) heart failure; G47.33 Obstructive sleep apnea (adult) (pediatric); E78.5 Hyperlipidemia, unspecified; J44.9 Chronic obstructive pulmonary disease, unspecified; F41.9 Anxiety disorder, unspecified; G51.0 Bell's palsy; T38.0X5A Adverse effect of glucocorticoids and synthetic analogues, initial encounter; Z71.3 Dietary counseling and surveillance; Z79.01 Long term (current) use of anticoagulants; Z79.4 Long term (current) use of insulin; Z79.84 Long term (current) use of oral hypoglycemic drugs; Z79.899 Other long term (current) drug therapy; Z87.891 Personal history of nicotine dependence; Z86.718 Personal history of other venous thrombosis and embolism; Z90.49 Acquired absence of other specified parts of digestive tract; Z87.898 Personal history of other specified conditions
CPT/HCPCS: 36415; 71010; 80048; 80053; 82550; 82553; 83036; 83735; 83880; 84100; 84484; 85025; 85610; 85730; 93005; 93306; 94640; 94660; 96365; 96366; 96375; 99291

== ENCOUNTER → 2017-02-26 | Day surgery (SDC) | payer BC ==
[2017-02-25 09:53] VITALS: BMI 47.5
[~2017-02-26] MED LIST: INSULIN LISPRO (humaLOG) 300 UNIT/3 ML VIAL SQ ONE; INSULIN LISPRO (humaLOG) 300 UNIT/3 ML VIAL SQ SCH; LACTATED RINGERS 1,000 ML IV SCH; PROPOFOL 10 MG/ML 20 ML VIAL IV ONE; SODIUM CHLORIDE 0.9% 1,000 ML IV SCH
[2017-02-26 07:18] LABS: Glucose,Whole Blood 222 mg/dL (75-99)
[2017-02-26 07:52] VITALS: RESP 16; TEMP 98
--- NOTE | 2017-02-26 07:57 | P.PCN ---
Preoperative Diagnosis: Procedure Electrical cardioversion for atrial fibrillation Indication Refractory atrial fibrillation, symptomatic Currently on amiodarone 400 mg a day Procedure 360 J biphasic shock was used to cardiovert the patient successfully to sinus rhythm Heart rate in the 40s thereafter Plan Continue ELIQUIS continue amiodarone 400 mg a day Reduce metoprolol to 50 mg once daily Proceed with pulmonary vein isolation/A. fib ablation Patient is currently speaking steroids for Johnson's palsy. I will reschedule the procedure for about a month later Postoperative Diagnosis: Procedure(s) Performed: Implants: Disposition: same day Indications for Procedure: Operative Findings: Description of Procedure:
[2017-02-26 09:31] VITALS: PULSE 50
[2017-02-26 10:47] VITALS: BP 152/82
== END ==
LOC: CATHEP 06:15
PROVIDERS: ATTEND Internal Medicine Clinical Cardiac Electrophysiology
DX: I48.1 Persistent atrial fibrillation (principal); Z79.01 Long term (current) use of anticoagulants; I25.10 Atherosclerotic heart disease of native coronary artery without angina pectoris; I10 Essential (primary) hypertension; Z87.891 Personal history of nicotine dependence; I51.7 Cardiomegaly; E11.9 Type 2 diabetes mellitus without complications; Z79.4 Long term (current) use of insulin; Z79.84 Long term (current) use of oral hypoglycemic drugs; E78.5 Hyperlipidemia, unspecified; G51.0 Bell's palsy; Z79.82 Long term (current) use of aspirin; Z79.52 Long term (current) use of systemic steroids; Z79.899 Other long term (current) drug therapy
CPT/HCPCS: 93005; 92960; J2704

== ENCOUNTER → 2017-03-04 | Outpatient (CLI) | payer BC ==
--- NOTE | 2017-03-04 15:41 | MR ---
EXAMINATION TYPE: MR brain and iac wo/w con DATE OF EXAM: 03/04/2017 COMPARISON: NONE HISTORY: Acute ill-defined cerebrovascular dis and unspecified disorder of cranial nerves per order. In particular left-sided otalgia, right asymmetrical sensorineural hearing loss, and cranial nerves V II paralysis per order. TECHNIQUE: Multiplanar, multisequence images of the brain and brainstem including dedicated evaluation of software intern al auditory canals is performed without and with IV contrast, utilizing 15 mL intravenous Gadavist . FINDINGS: Diffusion weighted images demonstrate no evidence of a recent infarct or other diffusion ab normality. There is no worrisome extra-axial fluid collection. There is ventricular and sulcal promi nence consistent with diffuse cerebral atrophy. There are foci of T2 hyperintensity seen throughout t he deep and periventricular white matter bilaterally most prominent near level of occipital horns an d posterior aspect of lateral ventricles. Midline structures demonstrate normal morphology. The craniocervical junction appears within normal limits. Post contrast images demonstrate no abnormal enhancement. The dural venous sinuses appear pa tent. There is suspicious air-fluid level in the left maxillary sinus. Remainder paranasal sinuses ar e clear. Globes are intact bilaterally. No suspicious fluid signal seen in mastoid air cells bilaterally. Vestibulocochlear complexes are sym metric in size and appearance. There is suggestion of a vague area of linear enhancement on the left vestibulocochlear complexes lateral aspect before semicircular canals seen best on coronal image 10 s eries 901 and axial image 11 series 801 that does not reproduce well on additional imaging sequences. IMPRESSION: 1. Vague tiny area of enhancement left vestibulocochlear complex in which small acoustic neuroma judie ot be excluded. Consider at minimum MRI monitoring or follow-up in 6-12 months time. 2. Mild to moderate diffuse cerebral atrophy and chronic small vessel ischemic change. 3. Possible acute left maxillary sinusitis, clinical correlation advised.
== END | disposition home or self-care (01) ==
LOC: RADMRIMAIN 13:31
PROVIDERS: ATTEND Nurse Practitioner Family
DX: G31.9 Degenerative disease of nervous system, unspecified (principal); I67.82 Cerebral ischemia
CPT/HCPCS: 70553; A9581

== ENCOUNTER 2017-04-16 06:02 | Day surgery (SDC) | payer BC, MEDICARE ==
[2017-04-13 15:46] VITALS: BMI 47.2
[2017-04-16] MEDS: SODIUM CHLORIDE 0.9% 1,000 ML IV SCH (06:53)
[2017-04-16 06:57] LABS: Glucose,Whole Blood 178 mg/dL (75-99)
[2017-04-16] MEDS ORDERED: ISOPROTERENOL 250 MCG/1.25 ML SYR IV ONE (07:35)
[2017-04-16] MEDS ORDERED: PROPOFOL 10 MG/ML 20 ML VIAL IV ONE (07:35)
[2017-04-16] MEDS ORDERED: HEPARIN SODIUM,PORCINE 10,000 UNIT/ML 1 ML VIAL ONE (07:35)
[2017-04-16] MEDS ORDERED: MIDAZOLAM 2 MG/2 ML VIAL ONE (07:35)
[2017-04-16] MEDS ORDERED: HEPARIN SODIUM,PORCINE 5,000 UNIT/ML 1 ML VIAL ONE (07:35)
[2017-04-16] MEDS ORDERED: LIDOCAINE 1% INJ 10MG/ML (20 ML MDV) ONE (07:35)
[2017-04-16] MEDS ORDERED: fentaNYL (PF) 50 MCG/ML 2 ML AMP ONE (07:35)
[2017-04-16] MEDS ORDERED: ePHEDrine SULFATE/0.9% NACL/PF 50 MG/5 ML SYRINGE IV ONE (07:35)
[2017-04-16] MEDS ORDERED: PHENYLEPHRINE-0.9% NACL SYG 1 MG/10 ML SYRINGE ONE (07:35)
[2017-04-16] MEDS ORDERED: PROTAMINE SULFATE 10 MG/ML 5 ML VIAL IV ONE (07:35)
[2017-04-16] MEDS ORDERED: SUCCINYLCHOLINE CHLORIDE VIAL 200 MG/10 ML VIAL IV ONE (07:35)
[2017-04-16] MEDS ORDERED: LIDOCAINE 2% INJ 20 MG/ML SQ ONE (08:24)
[2017-04-16] MEDS ORDERED: IODIXANOL 320 MG/ML 100 ML IV ONE (11:09)
[2017-04-16] MEDS ORDERED: SODIUM CHLORIDE 0.9% 1,000 ML IV ONE (11:10)
[2017-04-16] MEDS ORDERED: HYDROcodone/APAP 5-325MG 1 EACH TAB PO PRN (11:23)
[2017-04-16] MEDS ORDERED: HEPARIN SODIUM,PORCINE/D5W PMX 25,000 UNIT in DEXTROSE/WATER 1 500ML.BAG IV ONE (11:38)
--- NOTE | 2017-04-16 11:48 | P.PCN ---
Preoperative Diagnosis: Procedures performed ([facility] - CRYO Ablation) Invasive hemodynamic monitoring while general anesthesia, right femoral arterial line for monitoring and sampling Comprehensive diagnostic EP study with attempted arrhythmia induction CS pacing and recording Drug infusion followed by PES Catheter the mapping of the tachycardia (NOT 3D mapping) Intracardiac echocardiography Pulmonary vein isolation with transseptal and comprehensive EPS, [id number] Procedure details Patient was brought to the EP lab in a fasting state. Written informed consent was obtained prior to the procedure. Procedure performed under general anesthesia After initial muscle relaxant use, muscle relaxants were not given thereafter in order to assess phrenic nerve during procedure Patient prepped and draped as per protocol Full cryo-set up with standard preparation of the cryoablation tools done Femoral Venous access obtained on the right and left groins Sheaths placed Diagnostic catheters for the high right atrium, phrenic nerve stimulation and pacing, His bundle, RV and coronary sinus placed Intracardiac echo catheter placed Long sheath placed in the right atrium Left and right transseptal catheterization performed under intracardiac echo guidance Intravenous heparin with aCT above 300 Later, catheter positioning and balloon positioning under intracardiac echo Baseline measurements Patient wasn't tachycardia at 350 ms cycle length. This terminated during the first cryo freeze of the left superior pulmonary vein thereafter he maintains sinus rhythm throughout the procedure cycle length 1100 ms. Normal WA interval , QRS of 125 ms QT 440 ms Comprehensive diagnostic EP study with drug infusion Atrial pacing performed from the high right atrium and the coronary sinus Sinus recovery times were 605 100 ms were 1451 and 1524 ms respectively. VA Wenckebach block greater than 600 ms Pacing from the HRA, pacing from the coronary sinus proximal and distal and pacing from the right ventricle AH interval 95 ms HV interval 44 ms Transseptal catheterization performed RA pressure 36/24 LA pressure is 36/23 Transseptal catheterization performed with standard sheath. The cryoablation sheath was then placed with an over the wire exchange without any acute complications. All 4 pulmonary veins were isolated in the following sequence: Left superior followed by left inferior followed by right superior followed by right inferior The cryo-ablation balloon was placed at the os of each vein 1.5 mL of IV dye was injected to confirm an occluded vein Goal during cryoablation was to achieve -30C in the first 30 seconds. If not the balloon was repositioned to obtain this result After completion of Cryoblation with durations from 180-240 seconds, entrance block was confirmed with the Attain circular catheter in a roving fashion around the antrum of the pulmonary veins Phrenic nerve pacing was performed from the SVC, right innominate vein area and diaphragm voltage was monitored as well as manually Parameter goals for each cryo freeze -30C by 30 seconds -40C by 60 seconds Mediated between minus 40-55 Thaw time greater than 10 seconds Balloon visualized by intracardiac echo to ensure that the proximal one third was within the left atrium/antrum Left superior pulmonary vein First cryoablation 90 seconds Excellent parameters Vein isolated in 42 seconds Second cryoablation 120 seconds Excellent parameters Vein isolated Left inferior pulmonary vein First cryoablation 90 seconds Excellent parameters Vein isolated Second cryoablation on 120 seconds excellent parameters Vein isolated Right superior pulmonary vein, during phrenic nerve pacing First cryoablation 3 minutes Excellent parameters Vein isolated Second cryoablation 2 minutes Excellent parameters Vein isolated Right inferior pulmonary vein, during phrenic nerve pacing First cryoablation 160 seconds Excellent parameters Vein isolated Second cryoablation 120 seconds Excellent parameters Vein isolated At the end of the procedure the Achieve catheter was once again used to check for entrance block Phrenic nerve stimulation was performed to confirm diaphragmatic stimulation the end of the procedure Cine fluoroscopy was performed at the very end of the procedure to confirm movement of both diaphragms with inspiration and expiration At the end of the procedure the patient was extubated Heparin was reversed Venous sheaths were removed and hemostasis assured Result Successful pulmonary vein isolation using cryo-ablation Termination of atrial tachycardia cycle length of 350 ms during initial cryoablation of the left superior pulmonary vein coinciding with loss of pulmonary vein potentials within 42 seconds of onset of cryo freeze Complete entrance block in all 4 veins confirmed No evidence for phrenic nerve injury Disposition: same day
[2017-04-16] MEDS ORDERED: hydrALAZINE HCL 20 MG/ML 1 ML VIAL IVP ONE (12:07)
[2017-04-16 12:19] LABS: Glucose,Whole Blood 157 mg/dL (75-99)
[2017-04-16] MEDS ORDERED: ACETAMINOPHEN IV (For NPO) 1,000 MG in EMPTY BAG 1 BAG IVPB ONE (12:30)
[2017-04-16 13:31] VITALS: RESP 18
[2017-04-16] MEDS: LACTATED RINGERS 1,000 ML IV SCH (15:53)
[2017-04-16 16:58] LABS: Glucose,Whole Blood 126 mg/dL (75-99)
[2017-04-16] MEDS: FUROSEMIDE 20 MG TAB PO SCH (17:33)
[2017-04-16] MEDS ORDERED: ACETAMINOPHEN TAB 325 MG TAB PO PRN (18:30)
[2017-04-16] MEDS: INSULIN LISPRO (humaLOG) 300 UNIT/3 ML VIAL SQ SCH ×2 (20:28→20:29)
[2017-04-16] MEDS: APIXABAN 5 MG TAB PO SCH (20:36)
[2017-04-16] MEDS: INSULIN GLARGINE 100 UNIT/ML 10 ML VIAL SQ SCH (20:36)
[2017-04-16] MEDS: ASPIRIN 81 MG PO SCH (20:36)
[2017-04-16] MEDS: LISINOPRIL 20 MG TAB PO SCH (20:36)
[2017-04-16 20:45] LABS: Glucose,Whole Blood 150 mg/dL (75-99)
[2017-04-17 05:48] LABS: Glucose,Whole Blood 178 mg/dL (75-99)
[2017-04-17] MEDS: LACTATED RINGERS 1,000 ML IV SCH (05:56)
[2017-04-17] MEDS: SODIUM CHLORIDE 0.9% 1,000 ML IV SCH (05:57)
[2017-04-17] MEDS: INSULIN LISPRO (humaLOG) 300 UNIT/3 ML VIAL SQ SCH ×2 (06:56→12:18)
[2017-04-17 07:27] LABS: Anion Gap 12 mmol/L; Blood Urea Nitrogen 25 mg/dL (9-20); Calcium 8.4 mg/dL (8.4-10.2); Carbon Dioxide 27 mmol/L (22-30); Chloride 101 mmol/L (98-107); Glucose 146 mg/dL (74-99); Non-African American GFR(MDRD) 59 (>60 ml/min/1.73 sqM); Potassium 3.9 mmol/L (3.5-5.1); Sodium 140 mmol/L (137-145)
[2017-04-17] MEDS ORDERED: FUROSEMIDE 10 MG/ML 2 ML VIAL IV ONE (08:00)
[2017-04-17] MEDS: APIXABAN 5 MG TAB PO SCH (08:22)
[2017-04-17] MEDS: ASPIRIN 81 MG PO SCH (08:22)
[2017-04-17] MEDS: FUROSEMIDE 20 MG TAB PO SCH (08:22)
[2017-04-17] MEDS: LISINOPRIL 20 MG TAB PO SCH (08:22)
[2017-04-17] MEDS: INSULIN GLARGINE 100 UNIT/ML 10 ML VIAL SQ SCH (08:23)
--- NOTE | 2017-04-17 08:35 | P.DS ---
Providers Attending physician: Johnson Lamb Primary care physician: [facility] Course: Patient underwent successful ablation for atrial fibrillation. He was in an atrial tachycardia the start of study and it took 42 seconds isolated the left superior pulmonary vein. Corresponding to this the tachycardia terminated. Thereafter the rest of the procedure was performed in sinus rhythm. All 4 pulmonary veins and successfully isolated. No tachycardia was induced with programmed stimulation on Isuprel Patient is doing well. He is sitting up in a chair. No chest discomfort no throat complaints no cough expectoration fever groins have healed well no groin problems On examination he is afebrile 98.1F pulse rate in the 60s, normal respirations , blood pressure 121/57 mmHg Heart sounds S1 and S2 are soft no rub no gallop breath sounds are reduced bilaterally but there are no rhonchi no crackles abdomen is soft No hematoma in the groins Impression Persistent symptomatic atrial fibrillation Hypertension Elevated right atrium and left atrial pressures, mean 26. Millimeters of mercury Adult-onset diabetes and morbid obesity Obstructive sleep apnea Suggest Lifelong anticoagulation, continue all cardiac medications Amiodarone dose is being reduced to 100 mg by mouth daily and this will be discontinued in 2 months completely Follow-up 24-hour Holter monitor after that Patient Condition at Discharge: Stable Plan - Discharge Summary New Discharge Prescriptions: New Amiodarone [Cordarone] 100 mg PO DAILY #90 tab Discontinued Amiodarone [Cordarone] 200 mg PO BID #120 tab No Action Atorvastatin [Lipitor] 40 mg PO QAM metFORMIN HCL 1,000 mg PO AC-BID Loratadine [Claritin] 10 mg PO QAM Insulin Glargine,Hum.rec.anlog [Lantus Solostar] 40 unit SQ BID Apixaban [Eliquis] 5 mg PO BID #60 tab Aspirin EC [Ecotrin Low Dose] 81 mg PO BID Lisinopril [Zestril] 20 mg PO BID tab Nitroglycerin Sl Tabs [Nitrostat] 0.4 mg SUBLINGUAL Q5M PRN tab PRN Reason: Chest Pain INSULIN LISPRO (HumaLOG) [HumaLOG] See Protocol SQ ACHS Furosemide [Lasix] 60 mg PO BID Spironolactone [Aldactone] 25 mg PO DAILY Metoprolol Succinate (ER) [Toprol XL] 50 mg PO QAM Discharge Medication List Atorvastatin [Lipitor] 40 mg PO QAM 10/18/16 [History] Insulin Glargine,Hum.rec.anlog [Lantus Solostar] 40 unit SQ BID 10/18/16 [ History] Loratadine [Claritin] 10 mg PO QAM 10/18/16 [History] metFORMIN HCL 1,000 mg PO AC-BID 10/18/16 [History] Apixaban [Eliquis] 5 mg PO BID #60 tab 10/24/16 [Rx] Aspirin EC [Ecotrin Low Dose] 81 mg PO BID 02/26/17 [History] Lisinopril [Zestril] 20 mg PO BID tab 02/28/17 [Rx] Nitroglycerin Sl Tabs [Nitrostat] 0.4 mg SUBLINGUAL Q5M PRN tab 02/28/17 [Rx] Furosemide [Lasix] 60 mg PO BID 04/13/17 [History] INSULIN LISPRO (HumaLOG) [HumaLOG] See Protocol SQ ACHS 04/13/17 [History] Metoprolol Succinate (ER) [Toprol XL] 50 mg PO QAM 04/13/17 [History] Spironolactone [Aldactone] 25 mg PO DAILY 04/13/17 [History] Amiodarone [Cordarone] 100 mg PO DAILY #90 tab 04/16/17 [Rx] Follow up Appointment(s)/Referral(s): Johnson Lamb MD [STAFF PHYSICIAN] - 1 Week Patient Instructions/Handouts: Cardiac Ablation (DC) Activity/Diet/Wound Care/Special Instructions: Post EP study - Ablation instructions 1. Keep access sites dry for 2 days. 2. No heavy lifting or straining for 2 days. 3. Avoid bending the hips repeatedly for 2 days. 4. You may go up and down stairs slowly Call if the following is noted 1. Bleeding, increasing swelling or pain at the access sites. 2. Increasing chest discomfort, especially upon taking a deep breath. 3. Increasing shortness of breath, at rest or with exertion. 4. Undue cough / phlegm 5. Difficulty or pain while swallowing. 6. Pain or change in color in the extremities. 7. Fever, chills, rigors. 8. Increasing headache or neurologic symptoms. 9. Dizziness, fainting, palpitations Reduce amiodarone to 100 mg by mouth daily but continue all other medications including anticoagulation Discharge Disposition: HOME SELF-CARE
[2017-04-17] MEDS ORDERED: LORATADINE 10 MG TAB PO SCH (09:00)
[2017-04-17] MEDS ORDERED: SPIRONOLACTONE 25 MG TAB PO SCH (09:00)
[2017-04-17] MEDS ORDERED: METOPROLOL SUCCINATE (ER) 50 MG TAB.ER.24H PO SCH (09:00)
[2017-04-17] MEDS ORDERED: ATORVASTATIN 40 MG TAB PO SCH (09:00)
[2017-04-17 09:12] VITALS: TEMP 97.9
[2017-04-17 11:39] LABS: Glucose,Whole Blood 176 mg/dL (75-99)
[2017-04-17 14:37] VITALS: BP 134/64; PULSE 72
[2017-04-17 16:35] LABS: Glucose,Whole Blood 174 mg/dL (75-99)
[2017-04-17] MEDS ORDERED: metFORMIN 500 MG TAB PO SCH (17:30)
== END 2017-04-17 17:30 | disposition home or self-care (01) ==
LOC: CATHEP 06:02 → 6SEL 11:01 → CATHEP 04-17 17:30 → 6SEL 04-17 17:32
PROVIDERS: ATTEND Internal Medicine Clinical Cardiac Electrophysiology
DX: I48.1 Persistent atrial fibrillation (principal); Z79.01 Long term (current) use of anticoagulants; I51.7 Cardiomegaly; E11.9 Type 2 diabetes mellitus without complications; Z79.4 Long term (current) use of insulin; I25.10 Atherosclerotic heart disease of native coronary artery without angina pectoris; Z87.891 Personal history of nicotine dependence; I10 Essential (primary) hypertension; E78.2 Mixed hyperlipidemia; G51.0 Bell's palsy; Z79.2 Long term (current) use of antibiotics; Z79.82 Long term (current) use of aspirin; Z79.52 Long term (current) use of systemic steroids; Z79.899 Other long term (current) drug therapy
CPT/HCPCS: 85347; 93623; 93662; 93609; 93656; 80048; C1769 ×5; C1894 ×4; C1730 ×2; C1759; C1893; C1733; C1766; J2001 ×2; J2250; J0330; J2720; J0360; J1644 ×3; J1940; Q9967; J3010; J0131; J2370; J2704

== ENCOUNTER 2017-11-01 12:33 | Inpatient (IN) | payer BC, MEDICARE ==
[2017-11-01] MEDS ORDERED: IPRATROPIUM-ALBUTEROL 3 ML NEB INHALATION STA (12:54)
[2017-11-01] MEDS ORDERED: FUROSEMIDE 10 MG/ML 4 ML VIAL IV STA (12:54)
--- NOTE | 2017-11-01 13:00 | ED ---
SOB HPI - General Chief Complaint: Shortness of Breath Stated Complaint: shaking, CATRACHITO Time Seen by Provider: 11/01/17 12:54 Source: patient, family, RN notes reviewed Mode of arrival: wheelchair Limitations: no limitations - History of Present Illness Initial Comments: This is a 62-year-old male history diabetes who presents with complains of shortness of breath that occurred about 30 minutes prior to admission. He also some shaking. Vital week ago he dropped something on his right great toe he's got some pain some blistering in increased localized temperature. Last time he had an episode similar to this he had heart issues per his family member. He is diabetic and also apparently prone to infections. Also per family patient has had increased swelling to the lower extremities. 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 MD Complaint: shortness of breath - Related Data Home Medications Medication Instructions Recorded Confirmed Atorvastatin [Lipitor] 40 mg PO QAM 10/18/16 11/01/17 Insulin Glargine,Hum.rec.anlog 40 unit SQ BID 10/18/16 11/01/17 [Lantus Solostar] Loratadine [Claritin] 10 mg PO QAM 10/18/16 11/01/17 metFORMIN HCL 1,000 mg PO AC-BID 10/18/16 11/01/17 Aspirin EC [Ecotrin Low Dose] 81 mg PO BID 02/26/17 11/01/17 Furosemide [Lasix] 60 mg PO BID 04/13/17 11/01/17 INSULIN LISPRO (HumaLOG) [HumaLOG] See Protocol SQ ACHS 04/13/17 11/01/17 Metoprolol Succinate (ER) [Toprol 25 mg PO QAM 04/13/17 11/01/17 XL] Spironolactone [Aldactone] 25 mg PO DAILY 04/13/17 11/01/17 Amiodarone [Cordarone] 100 mg PO DIRECTED 11/01/17 11/01/17 Previous Rx's Medication Instructions Recorded Apixaban [Eliquis] 5 mg PO BID #60 tab 10/24/16 Lisinopril [Zestril] 20 mg PO BID tab 02/28/17 Nitroglycerin Sl Tabs [Nitrostat] 0.4 mg SUBLINGUAL Q5M PRN tab 02/28/17 Allergies Allergy/AdvReac Type Severity Reaction Status Date / Time No Known Allergies Allergy Verified 11/01/17 12:40 Review of Systems ROS Statement: Those systems with pertinent positive or pertinent negative responses have been documented in the HPI. ROS Other: All systems not noted in ROS Statement are negative. Past Medical History Past Medical History: Heart Failure, COPD, Diabetes Mellitus, Hyperlipidemia, Hypertension, Osteoarthritis (OA), Sleep Apnea/CPAP/BIPAP Additional Past Medical History / Comment(s): CELLULITIS TO RLE, cpap See Dr House H&P for cardiac history History of Any Multi-Drug Resistant Organisms: None Reported Past Surgical History: Appendectomy, Heart Catheterization, Tonsillectomy Past Anesthesia/Blood Transfusion Reactions: No Reported Reaction Additional Past Anesthesia/Blood Transfusion Reaction / Comment(s): grumpy after surgery Past Psychological History: No Psychological Hx Reported Smoking Status: Former smoker Past Alcohol Use History: None Reported Past Drug Use History: None Reported - Past Family History Mother Family Medical History: No Reported History General Exam - General Exam Comments Initial Comments: This is a well-developed well-nourished awake alert oriented times 3 male Limitations: no limitations General appearance: alert, in no apparent distress Head exam: Present: atraumatic, normocephalic, normal inspection Eye exam: Present: normal appearance, PERRL, EOMI. Absent: scleral icterus, conjunctival injection, periorbital swelling ENT exam: Present: normal exam, mucous membranes moist Neck exam: Present: normal inspection. Absent: tenderness, meningismus, lymphadenopathy Respiratory exam: Present: decreased breath sounds. Absent: respiratory distress, wheezes, rales, rhonchi, stridor Cardiovascular Exam: Present: regular rate, normal rhythm, normal heart sounds. Absent: systolic murmur, diastolic murmur, rubs, gallop, clicks GI/Abdominal exam: Present: soft, normal bowel sounds. Absent: distended, tenderness, guarding, rebound, rigid Extremities exam: Present: full ROM, normal capillary refill, pedal edema, other (Saturation of the right great toe reveals toenails be loose with evidence of blistering increased localized temperature no definite lymphangitis. There is marked edema to the lower extremities with stasis dermatitis or edema and a right than the left.). Absent: tenderness, joint swelling, calf tenderness Back exam: Present: normal inspection Neurological exam: Present: alert, oriented X3, CN II-XII intact Psychiatric exam: Present: normal affect, normal mood Skin exam: Present: warm, dry, intact, normal color. Absent: rash Course Vital Signs 11/01/17 11/01/17 11/01/17 12:37 13:08 13:24 Temperature 99.2 F 103.3 F H Pulse Rate 92 87 85 Respiratory 18 20 16 Rate Blood Pressure 193/67 182/72 O2 Sat by Pulse 99 96 Oximetry 11/01/17 11/01/17 13:34 14:46 Temperature 102.2 F H Pulse Rate 84 88 Respiratory 16 18 Rate Blood Pressure 179/81 O2 Sat by Pulse 97 Oximetry Medical Decision Making - Medical Decision Making I did discuss findings with the patient family patient will be admitted he does demonstrate evidence of a diabetic foot infection. He will be placed on antibiotics with consultation by Dr. Butts I did discuss the case with Dr. Smith - Lab Data Result diagrams: 11/01/17 13:05 11/01/17 13:05 Lab Results 11/01/17 11/01/17 11/01/17 Range/Units 13:05 13:05 13:05 WBC 21.4 H (3.8-10.6) k/uL RBC 4.51 (4.30-5.90) m/uL Hgb 13.6 (13.0-17.5) gm/dL Hct 40.5 (39.0-53.0) % MCV 89.9 (80.0-100.0) fL MCH 30.1 (25.0-35.0) pg MCHC 33.5 (31.0-37.0) g/dL RDW 13.6 (11.5-15.5) % Plt Count 308 (150-450) k/uL Neutrophils % 84 % Lymphocytes % 10 % Monocytes % 3 % Eosinophils % 2 % Basophils % 0 % Neutrophils # 18.0 H (1.3-7.7) k/uL Lymphocytes # 2.1 (1.0-4.8) k/uL Monocytes # 0.7 (0-1.0) k/uL Eosinophils # 0.5 (0-0.7) k/uL Basophils # 0.1 (0-0.2) k/uL PT (9.0-12.0) sec INR (<1.2) APTT (22.0-30.0) sec Sodium 146 H (137-145) mmol/L Potassium 4.3 (3.5-5.1) mmol/L Chloride 102 (98-107) mmol/L Carbon Dioxide 28 (22-30) mmol/L Anion Gap 16 mmol/L BUN 32 H (9-20) mg/dL Creatinine 1.36 H (0.66-1.25) mg/dL Est GFR (CKD-EPI)AfAm 63 (>60 ml/min/1.73 sqM) Est GFR (CKD-EPI)NonAf 55 (>60 ml/min/1.73 sqM) Glucose 136 H (74-99) mg/dL Plasma Lactic Acid Alan (0.7-2.0) mmol/L Calcium 9.4 (8.4-10.2) mg/dL Magnesium 1.5 L (1.6-2.3) mg/dL Total Bilirubin 0.5 (0.2-1.3) mg/dL AST 22 (17-59) U/L ALT 34 (21-72) U/L Alkaline Phosphatase 70 (38-126) U/L Total Creatine Kinase 367 H (55-170) U/L CK-MB (CK-2) 3.6 H* (0.0-2.4) ng/mL CK-MB (CK-2) Rel Index 1.0 Troponin I <0.012 (0.000-0.034) ng/mL NT-Pro-B Natriuret Pep pg/mL Total Protein 6.9 (6.3-8.2) g/dL Albumin 4.5 (3.5-5.0) g/dL 11/01/17 11/01/17 11/01/17 Range/Units 13:05 13:05 13:05 WBC (3.8-10.6) k/uL RBC (4.30-5.90) m/uL Hgb (13.0-17.5) gm/dL Hct (39.0-53.0) % MCV (80.0-100.0) fL MCH (25.0-35.0) pg MCHC (31.0-37.0) g/dL RDW (11.5-15.5) % Plt Count (150-450) k/uL Neutrophils % % Lymphocytes % % Monocytes % % Eosinophils % % Basophils % % Neutrophils # (1.3-7.7) k/uL Lymphocytes # (1.0-4.8) k/uL Monocytes # (0-1.0) k/uL Eosinophils # (0-0.7) k/uL Basophils # (0-0.2) k/uL PT 10.2 (9.0-12.0) sec INR 1.0 (<1.2) APTT 25.3 (22.0-30.0) sec Sodium (137-145) mmol/L Potassium (3.5-5.1) mmol/L Chloride (98-107) mmol/L Carbon Dioxide (22-30) mmol/L Anion Gap mmol/L BUN (9-20) mg/dL Creatinine (0.66-1.25) mg/dL Est GFR (CKD-EPI)AfAm (>60 ml/min/1.73 sqM) Est GFR (CKD-EPI)NonAf (>60 ml/min/1.73 sqM) Glucose (74-99) mg/dL Plasma Lactic Acid Alan 2.9 H* (0.7-2.0) mmol/L Calcium (8.4-10.2) mg/dL Magnesium (1.6-2.3) mg/dL Total Bilirubin (0.2-1.3) mg/dL AST (17-59) U/L ALT (21-72) U/L Alkaline Phosphatase (38-126) U/L Total Creatine Kinase (55-170) U/L CK-MB (CK-2) (0.0-2.4) ng/mL CK-MB (CK-2) Rel Index Troponin I (0.000-0.034) ng/mL NT-Pro-B Natriuret Pep 386 pg/mL Total Protein (6.3-8.2) g/dL Albumin (3.5-5.0) g/dL - EKG Data -: EKG Interpreted by Ks EKG shows normal: sinus rhythm (Sinus rhythm with PACs artifact present rate was 85. Interval 186 QRS 112 QT since QTC of 442/525 evidence of a prolonged QT ) - Radiology Data Radiology results: report reviewed (Did review the imaging and report x-ray shows some evidence of pulmonary vascular congestion also the x-ray of the foot shows no foreign body or fractures there is slight edema seen around the great toe the right foot), image reviewed Disposition Clinical Impression: Diabetic infection of right foot, Febrile illness, acute Disposition: ADMITTED IP TO THIS HOSP Condition: Stable Referrals: Anna Rizvi MD [Primary Care Provider] - 1-2 days
[2017-11-01 13:22] LABS: Basophils # (A) 0.1 k/uL (0-0.2); Basophils % (A) 0 %; Eosinophils # (A) 0.5 k/uL (0-0.7); Eosinophils % (A) 2 %; HCT 40.5 % (39.0-53.0); HGB 13.6 gm/dL (13.0-17.5); Lymphocytes # (A) 2.1 k/uL (1.0-4.8); Lymphocytes % (A) 10 %; MCH 30.1 pg (25.0-35.0); MCHC 33.5 g/dL (31.0-37.0); MCV 89.9 fL (80.0-100.0); Monocytes # (A) 0.7 k/uL (0-1.0); Monocytes % (A) 3 %; Neutrophils % (A) 84 %; Platelet Count 308 k/uL (150-450); RBC 4.51 m/uL (4.30-5.90); RDW 13.6 % (11.5-15.5); WBC 21.4 k/uL (3.8-10.6)
[2017-11-01] MEDS ORDERED: ACETAMINOPHEN TAB 500 MG TAB PO STA (13:28)
[2017-11-01 13:29] LABS: Albumin 4.5 g/dL (3.5-5.0); Calcium 9.4 mg/dL (8.4-10.2); Magnesium 1.5 mg/dL (1.6-2.3); Potassium 4.3 mmol/L (3.5-5.1); Total Bilirubin 0.5 mg/dL (0.2-1.3); Total Protein 6.9 g/dL (6.3-8.2)
[2017-11-01 13:31] LABS: Partial Thromboplastin Time 25.3 sec (22.0-30.0); Prothrombin Time 10.2 sec (9.0-12.0)
[2017-11-01 13:40] LABS: Creatine Kinase 367 U/L (55-170)
[2017-11-01 13:53] LABS: Troponin I <0.012 ng/mL (0.000-0.034)
[2017-11-01 13:54] LABS: Creatine Kinase MB 3.6 ng/mL (0.0-2.4)
--- NOTE | 2017-11-01 14:20 | XR ---
EXAMINATION TYPE: XR chest 2V DATE OF EXAM: 11/01/2017 COMPARISON: February 28, 2017 HISTORY: Difficulty breathing. TECHNIQUE: Frontal and lateral views of the chest are obtained. FINDINGS: There is mild cephalization of the pulmonary vessels. No pneumothorax or pleural effusion is identified. The cardiac silhouette appears within normal limits. IMPRESSION: Findings consistent with mild CHF are identified.
--- NOTE | 2017-11-01 14:22 | XR ---
Examination: Foot complete right HISTORY: Pain. Toe pain after an object was dropped on it. TECHNIQUE: 4 views the right foot were obtained. FINDINGS: No acute fracture or subluxation is identified. There could be some soft tissue swelling identified i n the great toe at the area of interest. No definite radiopaque foreign body is seen. There is an inferior calcaneal enthesophyte. Subcutaneous edema is noted throughout the foot. There a re vascular calcifications identified. IMPRESSION: No definite fracture seen. There is soft tissue swelling in the region of the great toe. Follow-up re commended if warranted.
[2017-11-01] MEDS ORDERED: MAGNESIUM SULFATE-D5W PMX 1 GM in DEXTROSE/WATER 1 100ML.BAG IVPB ONE (15:04)
[2017-11-01] MEDS ORDERED: PIPERACILLIN-TAZOBACTAM 3.375 GM in DEXTROSE/WATER 1 50ML.BAG IVPB STA (15:05)
[2017-11-01] MEDS ORDERED: NALOXONE 0.4 MG/ML 1 ML VIAL IV PRN (16:08)
[2017-11-01] MEDS ORDERED: KETOROLAC 30 MG/ML 1 ML VIAL IVP PRN (16:08)
[2017-11-01] MEDS ORDERED: NITROGLYCERIN SL TABS 0.4 MG TAB SUBLINGUAL PRN (16:12)
[2017-11-01] MEDS ORDERED: hydrALAZINE HCL 20 MG/ML 1 ML VIAL IVP STA (16:34)
[2017-11-01] MEDS ORDERED: IBUPROFEN 800 MG TAB PO STA (16:45)
[2017-11-01] MEDS: SODIUM CHLORIDE 0.9% 1,000 ML IV SCH ×2 (16:58→20:47)
[2017-11-01 18:24] VITALS: BMI 47.5
[2017-11-01 18:26] LABS: Glucose,Whole Blood 130 mg/dL (75-99)
[2017-11-01 20:08] LABS: Glucose,Whole Blood 205 mg/dL (75-99)
[2017-11-01] MEDS: INSULIN ASPART 100 UNIT/ML 1 ML 10 ML VIAL SQ SCH ×2 (20:33→20:45)
[2017-11-01] MEDS: metFORMIN 500 MG TAB PO SCH (20:34)
[2017-11-01] MEDS: INSULIN DETEMIR 100 UNIT/ML 10 ML VIAL SQ SCH (20:46)
[2017-11-01] MEDS: ASPIRIN 81 MG PO SCH (20:47)
[2017-11-01] MEDS: APIXABAN 5 MG TAB PO SCH (20:47)
[2017-11-01] MEDS: FUROSEMIDE 20 MG TAB PO SCH (20:47)
[2017-11-01] MEDS: LISINOPRIL 20 MG TAB PO SCH (20:47)
--- NOTE | 2017-11-01 23:49 | CONS ---
CONSULTATION DATE OF SERVICE: 11/01/2017. REASON FOR CONSULTATION: Fever and sepsis. HISTORY OF PRESENT ILLNESS: The patient is a 62-year-old male, known to my service, as he was admitted about a year ago with group C bacteremia related to his lower extremity cellulitis. The patient is presenting to the [facility] on around noon with chief complaints of increasing shortness of breath and not feeling well. Apparently about a week ago, the patient did drop something on the right foot with resulting injury to the right big toe. The patient apparently did have some blister formation on the right great toe and subsequently opened up and did have some drainage. He did have some blistering and pain to the right big toe, more for dull aching pain 3 to 4/10, and no radiation. No significant drainage though. The patient denies having any chest pain. Occasional cough. No abdominal pain. No nausea, vomiting. No diarrhea. With these symptoms, the patient has been evaluated by the ER physician. On arrival to the ER, patient was afebrile, since he did spike a fever of 103.3 degrees Fahrenheit. The patient did have elevated white count of 21.4 1000. He did have x-rays of the right foot which did show some soft tissue swelling, but no other abnormality. He did have elevated lactic acid. The patient was started on Zosyn in the hospital. Infectious Disease was consulted for further recommendation regarding antibiotic therapy. REVIEW OF SYSTEMS: CONSTITUTIONAL: Positive for weakness along with the fever and chills. Eyes: No complaint. ENT no complaint. Respiratory as per HPI. Cardiovascular: No complaint. Genitourinary no complaint. Gastrointestinal: No complaint. Musculoskeletal as per HPI. Integumentary as per HPI. PSYCHOLOGICAL: No complaint. Endocrine: No complaint. Neurologic no complaint. PAST MEDICAL HISTORY: Insulin-dependent diabetes mellitus, hypertension, hyperlipidemia, COPD, group C bacteremia. Lower extremity cellulitis. PAST SURGICAL HISTORY: Appendectomy, tonsillectomy. SOCIAL HISTORY: Remote history of smoking. No drinking or drug use. FAMILY HISTORY: No pertinent findings noticed. ALLERGIES: No known drug allergies. MEDICATIONS: The patient is currently on amiodarone, Eliquis, aspirin, Lipitor, Lasix, NovoLog, Levemir Toradol, Restoril, Claritin, Glucophage and Toprol XL, Narcan, Piptazobactam, Aldactone. EXAMINATION: Blood pressure 130/55, pulse of 85, temperature of 99.5, T-max is 103. General description is a middle aged male up in the bed in no distress. No tachypnea or accessory muscles of respiration use. HEENT examination: No pallor or scleral icterus. Oral mucosa membranes is dry. No significant erythema or thrush. Neck trachea central. No thyromegaly. Lungs unlabored breathing, clear to auscultation. No wheeze or crackles. Heart S1, S2. Regular rate and rhythm. Abdomen soft, no tenderness. No guarding or rigidity. No organomegaly. EXTREMITIES: The right big toe is minimally swollen with minimal redness, did have ulcer formation. No drainage noticed. Neurological: Patient is awake, alert, oriented x3. Mood and affect normal. LABS: Hemoglobin is 13, white count 31.4. BUN of 32, creatinine 1.36. Electrolytes have been been normal. Liver enzymes are normal. Lipase was elevated. X-ray of the right foot with soft tissue swelling, no other abnormality. The patient also had a chest x-ray with findings consistent with mild CHF. DIAGNOSTIC IMPRESSION AND PLAN: Patient presented to the hospital with sepsis in a patient who did have a fever of 103 degrees Fahrenheit. The patient did have tachycardia. Did have elevated white count meeting criteria for SIRS. Source is right diabetic foot infection, with right big toe cellulitis, started as an injury more than a week ago in a patient who does have a previous history of a group C bacteremia could be more likely gram-positive skin svetlana such as Group C Strep and less likely MRSA with gram-negative infection. PLAN: 1. Discontinue Zosyn. 2. Will start the patient on Unasyn 3 g every 6 hours. 3. Gentle IV fluid. 4. We will follow up on his clinical condition and culture to further adjust medication if needed. Thank you for this consultation. Will follow this patient along with you. MMODL / IJN: [id number] /
[2017-11-02] MEDS ORDERED: PIPERACILLIN-TAZOBACTAM 3.375 GM in DEXTROSE/WATER 1 50ML.BAG IVPB SCH (01:00)
[2017-11-02] MEDS: AMPICILLIN-SULBACTAM 3 GM in SODIUM CHLORIDE 0.9% 100 ML IVPB SCH ×2 (01:02→05:34)
[2017-11-02] MEDS ORDERED: SPIRONOLACTONE 25 MG TAB PO SCH (09:00)
[2017-11-02 09:13] LABS: Glucose,Whole Blood 308 mg/dL (75-99)
[2017-11-02] MEDS: INSULIN ASPART 100 UNIT/ML 1 ML 10 ML VIAL SQ SCH ×4 (09:18→21:27)
[2017-11-02] MEDS: INSULIN DETEMIR 100 UNIT/ML 10 ML VIAL SQ SCH ×2 (09:18→21:27)
[2017-11-02] MEDS: ASPIRIN 81 MG PO SCH (09:20)
[2017-11-02] MEDS: APIXABAN 5 MG TAB PO SCH ×2 (09:20→21:27)
[2017-11-02] MEDS: metFORMIN 500 MG TAB PO SCH (09:20)
[2017-11-02] MEDS: AMIODARONE 100 MG TAB PO SCH (09:20)
[2017-11-02] MEDS: FUROSEMIDE 20 MG TAB PO SCH (09:20)
[2017-11-02] MEDS: LORATADINE 10 MG TAB PO SCH (09:20)
[2017-11-02] MEDS: LISINOPRIL 20 MG TAB PO SCH ×2 (09:20→21:27)
[2017-11-02] MEDS: ATORVASTATIN 40 MG TAB PO SCH (09:20)
[2017-11-02] MEDS: METOPROLOL SUCCINATE (ER) 50 MG TAB.ER.24H PO SCH (09:28)
[2017-11-02 09:58] LABS: Calcium 8.7 mg/dL (8.4-10.2); Potassium 3.8 mmol/L (3.5-5.1)
[2017-11-02 10:02] LABS: Basophils # (A) 0.1 k/uL (0-0.2); Basophils % (A) 0 %; Eosinophils % (A) 0 %; HCT 41.4 % (39.0-53.0); HGB 13.6 gm/dL (13.0-17.5); Lymphocytes # (A) 0.5 k/uL (1.0-4.8); Lymphocytes % (A) 2 %; MCH 29.9 pg (25.0-35.0); MCHC 32.7 g/dL (31.0-37.0); MCV 91.4 fL (80.0-100.0); Mean Platelet Volume 6.9; Monocytes # (A) 0.4 k/uL (0-1.0); Monocytes % (A) 2 %; Neutrophils # (A) 24.6 k/uL (1.3-7.7); Neutrophils % (A) 96 %; Platelet Count 261 k/uL (150-450); RBC 4.53 m/uL (4.30-5.90); RDW 13.8 % (11.5-15.5)
[2017-11-02 10:09] LABS: WBC 25.6 k/uL (3.8-10.6)
[2017-11-02] MEDS ORDERED: SODIUM CHLORIDE 0.9% 500 ML IV ONE (10:58)
[2017-11-02 11:31] LABS: Glucose,Whole Blood 234 mg/dL (75-99)
--- NOTE | 2017-11-02 11:49 | P.HPIM ---
History of Present Illness H&P Date: 11/02/17 Chief Complaint: Not feeling well This is a 62-year-old gentleman with past medical history noted below significant for type 2 diabetes who presented to the emergency room with shakiness and not feeling well. Patient said that he drop some object on his right foot last week while he was moving. Since then he noted worsening redness involving right lower extremity and had a small open wound on his great toe. Yesterday he noted that he is more weak and was shaking at home. He presented to the emergency room and was found to be septic with a high-grade fever of 103.2. He was relatively hemodynamically stable. He was found to have significant cellulitis involving the right lower extremity with a small open wound on the anterior aspect of the midshin. Patient was found to have acute kidney injury and elevated lactic acid. He was seen by infectious disease and is currently on broad-spectrum antibiotic. He received some IV fluid hydration as well. He is awake and alert now. He denies any pain. Review of Systems Review of system: 14 points review of systems were obtained and were negative except to what were mentioned in the HPI. Past Medical History Past Medical History: Heart Failure, COPD, Diabetes Mellitus, Hyperlipidemia, Hypertension, Osteoarthritis (OA), Sleep Apnea/CPAP/BIPAP Additional Past Medical History / Comment(s): CELLULITIS TO RLE, cpap See Dr House H&P for cardiac history History of Any Multi-Drug Resistant Organisms: None Reported Past Surgical History: Appendectomy, Heart Catheterization, Tonsillectomy Past Anesthesia/Blood Transfusion Reactions: No Reported Reaction Additional Past Anesthesia/Blood Transfusion Reaction / Comment(s): grumpy after surgery Past Psychological History: No Psychological Hx Reported Smoking Status: Former smoker Past Alcohol Use History: None Reported Additional Past Alcohol Use History / Comment(s): cigar once or twice a year Past Drug Use History: None Reported - Past Family History Mother Family Medical History: No Reported History Medications and Allergies Home Medications Medication Instructions Recorded Confirmed Type Atorvastatin [Lipitor] 40 mg PO QAM 10/18/16 11/01/17 History Insulin Glargine,Hum.rec.anlog 40 unit SQ BID 10/18/16 11/01/17 History [Lantus Solostar] Loratadine [Claritin] 10 mg PO QAM 10/18/16 11/01/17 History metFORMIN HCL 1,000 mg PO AC-BID 10/18/16 11/01/17 History Apixaban [Eliquis] 5 mg PO BID #60 tab 10/24/16 11/01/17 Rx Aspirin EC [Ecotrin Low Dose] 81 mg PO BID 02/26/17 11/01/17 History Lisinopril [Zestril] 20 mg PO BID tab 02/28/17 11/01/17 Rx Nitroglycerin Sl Tabs [Nitrostat] 0.4 mg SUBLINGUAL Q5M PRN tab 02/28/17 Rx Furosemide [Lasix] 60 mg PO BID 04/13/17 11/01/17 History INSULIN LISPRO (HumaLOG) [HumaLOG] See Protocol SQ AC-TID PRN 04/13/17 11/01/17 History Spironolactone [Aldactone] 25 mg PO DAILY 04/13/17 11/01/17 History Amiodarone [Cordarone] 100 mg PO MOWEFR 11/01/17 11/01/17 History Metoprolol Succinate [Toprol XL] 25 mg PO DAILY 11/01/17 11/01/17 History Allergies Allergy/AdvReac Type Severity Reaction Status Date / Time No Known Allergies Allergy Verified 11/01/17 18:24 Physical Exam Vitals: Vital Signs Temp Pulse Pulse Resp BP BP Pulse Ox 11/02/17 07:00 102.9 F H 80 16 129/80 95 11/02/17 00:34 99.3 F 94 17 100/61 96 11/02/17 00:15 94 17 11/01/17 20:10 99.5 F 80 18 137/60 97 11/01/17 19:06 99.5 F 85 18 103/55 96 11/01/17 18:00 101.5 F H 81 18 140/85 11/01/17 17:11 88 18 155/72 11/01/17 16:52 91 18 161/69 91 L 11/01/17 16:14 89 18 200/125 99 11/01/17 14:46 102.2 F H 88 18 179/81 97 11/01/17 13:34 84 16 11/01/17 13:24 85 16 11/01/17 13:08 103.3 F H 87 20 182/72 96 11/01/17 12:37 99.2 F 92 18 193/67 99 Intake and Output 11/01/17 11/02/17 11/02/17 22:59 06:59 14:59 Intake Total 1737 Output Total 1 400 Balance 1736 -400 Intake: Amount of Fluid Infused ( 1500 ml) Oral 237 Output: Urine 1 300 Emesis 100 Other: Voiding Method Urinal # Voids 2 Weight 158.757 kg General: The patient is awake and alert, in no distress Eye: there is normal conjunctiva bilaterally. Neck: The neck is supple, there is no JVD. Cardiovascular: Normal S1-S2, no S3-S4, no murmurs. Respiratory: Lungs clear to auscultation bilaterally Gastrointestinal: Abdomen is soft, nontender Musculoskeletal: Bilateral lower extremity edema worse on the right. The right lower extremity with significant erythema anteriorly with a small open ulcer measuring approximately 3 cm. There was no drainage or pus noted. Neurological:. Speech is normal. Skin: Skin is warm and dry Results CBC & Chem 7: 11/02/17 09:34 11/02/17 09:30 Labs: Abnormal Lab Results - Last 24 Hours (Table) 11/01/17 11/01/17 11/01/17 Range/Units 13:05 13:05 13:05 WBC 21.4 H (3.8-10.6) k/uL Neutrophils # 18.0 H (1.3-7.7) k/uL Lymphocytes # (1.0-4.8) k/uL Sodium 146 H (137-145) mmol/L BUN 32 H (9-20) mg/dL Creatinine 1.36 H (0.66-1.25) mg/dL Glucose 136 H (74-99) mg/dL POC Glucose (mg/dL) (75-99) mg/dL Plasma Lactic Acid Alan (0.7-2.0) mmol/L Magnesium 1.5 L (1.6-2.3) mg/dL Total Creatine Kinase 367 H (55-170) U/L CK-MB (CK-2) 3.6 H* (0.0-2.4) ng/mL 11/01/17 11/01/17 11/01/17 Range/Units 13:05 18:03 19:11 WBC (3.8-10.6) k/uL Neutrophils # (1.3-7.7) k/uL Lymphocytes # (1.0-4.8) k/uL Sodium (137-145) mmol/L BUN (9-20) mg/dL Creatinine (0.66-1.25) mg/dL Glucose (74-99) mg/dL POC Glucose (mg/dL) 130 H (75-99) mg/dL Plasma Lactic Acid Alan 2.9 H* 3.1 H* (0.7-2.0) mmol/L Magnesium (1.6-2.3) mg/dL Total Creatine Kinase (55-170) U/L CK-MB (CK-2) (0.0-2.4) ng/mL 11/01/17 11/02/17 11/02/17 Range/Units 20:05 09:12 09:30 WBC (3.8-10.6) k/uL Neutrophils # (1.3-7.7) k/uL Lymphocytes # (1.0-4.8) k/uL Sodium (137-145) mmol/L BUN 34 H (9-20) mg/dL Creatinine 1.81 H (0.66-1.25) mg/dL Glucose 289 H (74-99) mg/dL POC Glucose (mg/dL) 205 H 308 H (75-99) mg/dL Plasma Lactic Acid Alan (0.7-2.0) mmol/L Magnesium (1.6-2.3) mg/dL Total Creatine Kinase (55-170) U/L CK-MB (CK-2) (0.0-2.4) ng/mL 11/02/17 11/02/17 11/02/17 Range/Units 09:34 09:34 11:22 WBC 25.6 H* (3.8-10.6) k/uL Neutrophils # 24.6 H (1.3-7.7) k/uL Lymphocytes # 0.5 L (1.0-4.8) k/uL Sodium (137-145) mmol/L BUN (9-20) mg/dL Creatinine (0.66-1.25) mg/dL Glucose (74-99) mg/dL POC Glucose (mg/dL) 234 H (75-99) mg/dL Plasma Lactic Acid Alan 2.9 H* (0.7-2.0) mmol/L Magnesium (1.6-2.3) mg/dL Total Creatine Kinase (55-170) U/L CK-MB (CK-2) (0.0-2.4) ng/mL Microbiology - Last 24 Hours (Table) 11/01/17 13:05 Blood Culture Gram Stain - Preliminary Blood 11/01/17 13:05 Blood Culture - Final Blood Thrombosis Risk Factor Assmnt - Choose All That Apply Each Factor Represents 1 point: Obesity (BMI >25) Each Risk Factor Represents 2 Points: Age 61-74 years Thrombosis Risk Factor Assessment Total Risk Factor Score: 3 Thrombosis Risk Factor Assessment Level: Moderate Risk Assessment and Plan Assessment: 1. Cellulitis involving the right lower extremity with a small ulcer: Continue broad spectrum antibiotic as directed by infectious disease 2. Bacteremia with gram-negative bacilli: Repeat blood culture ordered today. Awaiting final identification and susceptibility 3. Sepsis without septic shock: Continue IV fluid hydration 4. Acute kidney injury: Repeat lab work in the morning 5. Type 2 diabetes: Continue home dose of insulin plus sliding scale 6. Obstructive sleep apnea 7. History of chronic atrial fibrillation status post ablation on anticoagulation 8. Lactic acidosis may be related to sepsis on presentation but definitely worsened by metformin which would be discontinued for now
[2017-11-02] MEDS: SODIUM CHLORIDE 0.9% 1,000 ML IV SCH (13:09)
[2017-11-02] MEDS ORDERED: ONDANSETRON 4 MG/2 ML VIAL IVP PRN (14:30)
[2017-11-02] MEDS: ACETAMINOPHEN TAB 325 MG TAB PO PRN ×3 (14:41→22:40)
--- NOTE | 2017-11-02 14:53 | CDI ---
Last Revision, June 2017 Documentation Clarification Form Date: 11/02/17 [id number] From: Rayna Cesar RN, CCDS Admit Date: 11/01/2017 4:08:00 PM Patient Name: Jossue Angel Visit Number: [id number] ATTENTION: The Clinical Documentation Specialists (CDI) and [facility] Coding Staff appreciate your assistance in clarifying documentation. Please respond to the clarification below the line at the bottom and electronically sign. The CDI & [facility] Coding staff will review the response and follow-up if needed. Please note: Queries are made part of the Legal Health Record. If you have any questions, please contact the author of this message via ITS. Dr. Kaye Smith History/Risk Factors: CHF, COPD, DM, HTN, OA, LENNY, Hyperlipidemia Clinical Indicators: VS/Pulse OX: Temp 99.2. hr 92, rr 18, b/p 193/67, spo2 99% ra BNP: 386 02/27/17 Echocardiogram Results: EF 55-60% Chest X Ray: Findings consistent with mild CHF are identified Treatment: Lasix 40 mg IVP x1 followed by 60 mg PO BID Aldactone 25 mg PO QD In your professional opinion, can you please clarify the acuity and type of CHF if known? Diastolic Heart Failure: Acute Chronic Acute on Chronic Systolic & Diastolic Heart Failure: Acute Chronic Acute on Chronic Heart Failure Unable to Determine Other, please specify Please continue to document in your progress notes and discharge summary in order to capture severity of illness and risk of mortality. Include clinical findings that support your diagnosis. MTDD
[2017-11-02] MEDS: CLINDAMYCIN 900 MG in DEXTROSE 5% IN WATER 50 ML IVPB SCH ×4 (16:03→23:10)
[2017-11-02 16:51] LABS: Glucose,Whole Blood 236 mg/dL (75-99)
[2017-11-02 21:00] LABS: Glucose,Whole Blood 172 mg/dL (75-99)
--- NOTE | 2017-11-02 22:26 | PN ---
PROGRESS NOTE DATE OF SURGERY: 11/02/2017 REASON FOR FOLLOWUP: Sepsis with right lower extremity cellulitis and right big toe infection. INTERVAL HISTORY: The patient did have a fever today. It did spike to 102 this morning and repeat was 103 this afternoon. The patient has more redness in the right leg but denies any worsening pain in the right leg area. The patient denies having any chest pain or shortness of breath or cough. No abdominal pain no diarrhea. PHYSICAL EXAMINATION: Blood pressure 149/72 with a pulse of 87, temperature 103.1. He is 95% on room air. General description is a middle-aged male lying in bed in no distress. HEENT EXAMINATION: No pallor or scleral icterus. Oral mucosa membrane is dry. NECK: Trachea is central. No thyromegaly. LUNGS: Unlabored breathing with occasional wheeze. HEART: S1, S2. Regular rate and rhythm. ABDOMEN: Soft. No tenderness. No guarding or rigidity. Right leg with more swelling, redness, slightly warm to touch. No skin breakdown. No drainage. LABS: Hemoglobin 13.6, white count 25.6. BUN of 34, creatinine 1.81. Lactic acid 3.1. Blood culture with Gram-positive bacilli. DIAGNOSTIC IMPRESSION AND PLAN: Patient with sepsis. Source is right diabetic foot infection with right big toe wound with secondary cellulitis in a patient with a history of a group C strep. Sepsis could be the same pathogen. PLAN AT THIS TIME: 1. Repeat blood cultures. 2. Will discontinue the cefazolin 3 grams q.8 along with clindamycin 900 q.8. 3. Will peyman the area of the redness. 4. Will follow up on his clinical condition as well as cultures to further adjust medication if needed. Thank you for this consultation. Will follow this patient along with you. MMODL / IJN: [id number] /
[2017-11-03 07:01] LABS: Glucose,Whole Blood 137 mg/dL (75-99)
[2017-11-03 07:40] LABS: Basophils % (A) 0 %; Eosinophils % (A) 0 %; HCT 35.3 % (39.0-53.0); HGB 11.7 gm/dL (13.0-17.5); Lymphocytes # (A) 1.3 k/uL (1.0-4.8); Lymphocytes % (A) 9 %; MCH 29.8 pg (25.0-35.0); MCHC 33.2 g/dL (31.0-37.0); MCV 89.8 fL (80.0-100.0); Monocytes # (A) 0.4 k/uL (0-1.0); Monocytes % (A) 3 %; Neutrophils # (A) 12.2 k/uL (1.3-7.7); Neutrophils % (A) 86 %; Platelet Count 195 k/uL (150-450); RBC 3.93 m/uL (4.30-5.90); RDW 13.8 % (11.5-15.5); WBC 14.2 k/uL (3.8-10.6)
[2017-11-03 07:50] LABS: Albumin 3.1 g/dL (3.5-5.0); Calcium 7.9 mg/dL (8.4-10.2); Potassium 3.9 mmol/L (3.5-5.1); Total Bilirubin 0.4 mg/dL (0.2-1.3); Total Protein 5.3 g/dL (6.3-8.2)
[2017-11-03] MEDS: INSULIN DETEMIR 100 UNIT/ML 10 ML VIAL SQ SCH ×2 (08:01→22:01)
[2017-11-03] MEDS: INSULIN ASPART 100 UNIT/ML 1 ML 10 ML VIAL SQ SCH ×4 (08:01→22:01)
[2017-11-03] MEDS: SODIUM CHLORIDE 0.9% 1,000 ML IV SCH ×3 (08:03→18:34)
[2017-11-03] MEDS: METOPROLOL SUCCINATE (ER) 50 MG TAB.ER.24H PO SCH (08:09)
[2017-11-03] MEDS: LORATADINE 10 MG TAB PO SCH (08:10)
[2017-11-03] MEDS: ASPIRIN 81 MG PO SCH (08:10)
[2017-11-03] MEDS: ATORVASTATIN 40 MG TAB PO SCH (08:10)
[2017-11-03] MEDS: APIXABAN 5 MG TAB PO SCH ×2 (08:10→22:00)
[2017-11-03] MEDS: LISINOPRIL 20 MG TAB PO SCH (08:10)
[2017-11-03] MEDS: CLINDAMYCIN 900 MG in DEXTROSE 5% IN WATER 50 ML IVPB SCH ×4 (09:25→18:01)
[2017-11-03] MEDS ORDERED: SODIUM CHLORIDE 0.9% 500 ML IV ONE (11:16)
[2017-11-03 11:53] LABS: Glucose,Whole Blood 190 mg/dL (75-99)
--- NOTE | 2017-11-03 12:23 | P.PN ---
Subjective Progress Note Date: 11/03/17 Patient is doing well today. His creatinine continued to go up. This morning blood pressure was borderline low. Patient said that he is not having any difficulty with urination. Objective - Vital Signs Vital signs: Vital Signs Temp 99.5 F 11/03/17 08:07 Pulse 81 11/03/17 08:07 Resp 16 11/03/17 08:17 BP 107/65 11/03/17 08:07 Pulse Ox 95 11/03/17 08:07 Intake & Output 11/02/17 11/03/17 11/03/17 18:59 06:59 18:59 Intake Total 800 Output Total 450 40 Balance -450 800 -40 Weight 158.757 kg Intake: Intake, IV Titration 800 Amount Sodium Chloride 0.9% 1, 800 000 ml @ 50 mls/hr IV . Q20H [facility] Rx#:[id number] Output: Urine 300 Post Void Residual 40 Emesis 150 Other: Voiding Method Urinal Urinal # Voids 4 1 2 - Exam General: The patient is awake and alert, in no distress Eye: there is normal conjunctiva bilaterally. Neck: The neck is supple, there is no JVD. Cardiovascular: Normal S1-S2, no S3-S4, no murmurs. Respiratory: Lungs clear to auscultation bilaterally Gastrointestinal: Abdomen is soft, nontender Musculoskeletal: There is +1-2 pedal edema following the right lower extremity , area of redness marked with no significant improvement. Neurological:. Speech is normal. Skin: Skin is warm and dry - Labs CBC & Chem 7: 11/03/17 07:00 11/03/17 07:00 Labs: Abnormal Lab Results - Last 24 Hours (Table) 11/02/17 11/02/17 11/02/17 Range/Units 14:00 16:39 20:34 WBC (3.8-10.6) k/uL RBC (4.30-5.90) m/uL Hgb (13.0-17.5) gm/dL Hct (39.0-53.0) % Neutrophils # (1.3-7.7) k/uL BUN (9-20) mg/dL Creatinine (0.66-1.25) mg/dL Glucose (74-99) mg/dL POC Glucose (mg/dL) 236 H 172 H (75-99) mg/dL Plasma Lactic Acid Alan 3.0 H* (0.7-2.0) mmol/L Calcium (8.4-10.2) mg/dL Total Protein (6.3-8.2) g/dL Albumin (3.5-5.0) g/dL 11/03/17 11/03/17 11/03/17 Range/Units 06:59 07:00 07:00 WBC 14.2 H (3.8-10.6) k/uL RBC 3.93 L (4.30-5.90) m/uL Hgb 11.7 L (13.0-17.5) gm/dL Hct 35.3 L (39.0-53.0) % Neutrophils # 12.2 H (1.3-7.7) k/uL BUN 41 H (9-20) mg/dL Creatinine 2.10 H (0.66-1.25) mg/dL Glucose 135 H (74-99) mg/dL POC Glucose (mg/dL) 137 H (75-99) mg/dL Plasma Lactic Acid Alan (0.7-2.0) mmol/L Calcium 7.9 L (8.4-10.2) mg/dL Total Protein 5.3 L (6.3-8.2) g/dL Albumin 3.1 L (3.5-5.0) g/dL 11/03/17 Range/Units 11:46 WBC (3.8-10.6) k/uL RBC (4.30-5.90) m/uL Hgb (13.0-17.5) gm/dL Hct (39.0-53.0) % Neutrophils # (1.3-7.7) k/uL BUN (9-20) mg/dL Creatinine (0.66-1.25) mg/dL Glucose (74-99) mg/dL POC Glucose (mg/dL) 190 H (75-99) mg/dL Plasma Lactic Acid Alan (0.7-2.0) mmol/L Calcium (8.4-10.2) mg/dL Total Protein (6.3-8.2) g/dL Albumin (3.5-5.0) g/dL Microbiology - Last 24 Hours (Table) 11/01/17 13:05 Blood Culture Gram Stain - Final Blood Blood Culture - Final Diphtheroid species 11/01/17 13:05 Blood Culture - Final Blood Assessment and Plan Assessment: 1. Cellulitis involving the right lower extremity with a small ulcer: Continue broad spectrum antibiotic as directed by infectious disease 2. Bacteremia with gram-negative bacilli: Blood culture grew Diphtheroi repeat blood culture pending. Awaiting further recommendations from infectious disease.d species. 3. Sepsis without septic shock: improved with IV fluid hydration 4. Acute kidney injury: probably prerenal secondary to hypotension. Hold all nephrotoxic including metformin, lisinopril, and diuretics. Ultrasound of the kidney done and awaiting report. Bladder scan to rule out obstructive uropathy. Repeat lab work in the morning 5. Type 2 diabetes: Continue home dose of insulin plus sliding scale 6. Obstructive sleep apnea 7. History of chronic atrial fibrillation status post ablation on anticoagulation 8. Lactic acidosis may be related to sepsis on presentation but definitely worsened by metformin which would be discontinued for now 9. Bilateral lower extremity edema: Probably secondary to venous insufficiency and cellulitis. Patient is not known to have underlying heart failure. BNP is normal. I would obtain an echocardiogram for further evaluation.
--- NOTE | 2017-11-03 13:34 | US ---
EXAMINATION TYPE: US kidneys/renal and bladder DATE OF EXAM: 11/03/2017 COMPARISON: NONE CLINICAL HISTORY: SHANA, assess for hydronephrosis; diabetic EXAM MEASUREMENTS: Right Kidney: 14.3 x 5.4 x 5.8 cm Left Kidney: 13.9 x 5.1 x 5.2 cm Post Void Residual Volume: NA as scheduled to have bladder scan bedside Right Kidney: possible double collecting system as column of Anish noted from peripheral cortex to m edial hilum Left Kidney: hyperechoic, solid, oval mass with posterior enhancement is noted superolateral cortex a nd size of mass = 2.0 x 2.1 x 1.4cm; possible double collecting system as column of Anish noted fro m peripheral cortex to medial hilum Bladder: wnl Bilateral Jets seen: no, not after 3 minute observation There is no evidence for hydronephrosis at this point in time. No nephrolithiasis is seen. The urina ry bladder is poorly distended and thus suboptimally evaluated. Cortical thinning right kidney is pr esent. Cortical thinning also present in left kidney. IMPRESSION: 2 cm hyperechoic lesion upper pole level right kidney versus angiomyolipoma. Advise contrast enhanced renal protocol CT or MRI to confirm. No hydronephrosis is seen bilaterally.
--- NOTE | 2017-11-03 14:51 | PN ---
PROGRESS NOTE DATE OF SERVICE: 11/03/2017 REASON FOR FOLLOWUP: Sepsis with right lower extremity cellulitis and right mid diabetic foot infection. INTERVAL HISTORY: The patient overall fever pattern has improved. Last temperature has around 8 o'clock last night. Patient is feeling slightly better, breathing comfortably. Denies having any chest pain, no cough. No abdominal pain or any worsening pain in the right leg area. PHYSICAL EXAMINATION: Blood pressure 107/65, pulse 81, temperature 98.5. He is 95% on room air. General description is a middle-aged male, lying in bed in no distress. RESPIRATORY SYSTEM: Unlabored breathing, decreased breath sounds at the base, no wheeze. HEART: S1, S2. Regular rate and rhythm. ABDOMEN: Soft, no tenderness. Right leg still has some swelling, redness has slightly decreased, no drainage. LABS: White count 14.2 with a BUN of 41, creatinine is 2.10. DIAGNOSTIC IMPRESSION AND PLAN: Patient with sepsis with right diabetic foot infection and cellulitis, likely streptococcal disease. The patient to continue with cefazolin and clindamycin, watching his clinical course closely. Continue supportive care. MMODL / IJN: [id number] /
[2017-11-03 16:56] LABS: Glucose,Whole Blood 219 mg/dL (75-99)
[2017-11-03 20:50] LABS: Glucose,Whole Blood 292 mg/dL (75-99)
[2017-11-04] MEDS: CLINDAMYCIN 900 MG in DEXTROSE 5% IN WATER 50 ML IVPB SCH ×6 (00:18→15:18)
[2017-11-04 06:56] LABS: Glucose,Whole Blood 138 mg/dL (75-99)
[2017-11-04 07:39] LABS: Basophils % (A) 0 %; Eosinophils # (A) 0.6 k/uL (0-0.7); Eosinophils % (A) 5 %; HCT 33.9 % (39.0-53.0); HGB 11.7 gm/dL (13.0-17.5); Lymphocytes # (A) 1.6 k/uL (1.0-4.8); Lymphocytes % (A) 14 %; MCH 30.5 pg (25.0-35.0); MCHC 34.4 g/dL (31.0-37.0); MCV 88.6 fL (80.0-100.0); Mean Platelet Volume 7.4; Monocytes # (A) 0.4 k/uL (0-1.0); Monocytes % (A) 3 %; Neutrophils # (A) 8.3 k/uL (1.3-7.7); Neutrophils % (A) 75 %; Platelet Count 207 k/uL (150-450); RBC 3.83 m/uL (4.30-5.90); RDW 13.7 % (11.5-15.5)
[2017-11-04 08:02] LABS: Albumin 3.1 g/dL (3.5-5.0); Calcium 8.2 mg/dL (8.4-10.2); Potassium 3.5 mmol/L (3.5-5.1); Total Bilirubin 0.4 mg/dL (0.2-1.3); Total Protein 5.4 g/dL (6.3-8.2)
[2017-11-04] MEDS: INSULIN ASPART 100 UNIT/ML 1 ML 10 ML VIAL SQ SCH ×4 (08:08→22:00)
[2017-11-04] MEDS: INSULIN DETEMIR 100 UNIT/ML 10 ML VIAL SQ SCH ×2 (08:08→22:01)
--- NOTE | 2017-11-04 09:50 | ECHOF ---
Referral Reason:r/o CHF MEASUREMENTS -------- HEIGHT: 182.9 cm WEIGHT: 158.8 kg BP: 107/65 RVIDd: 3.7 cm (< 3.3) IVSd: 1.8 cm (0.6 - 1.1) LVIDd: 4.4 cm (3.9 - 5.3) LVPWd: 1.5 cm (0.6 - 1.1) IVSs: 2.0 cm LVIDs: 3.1 cm LVPWs: 1.9 cm LA Diam: 4.6 cm (2.7 - 3.8) LAESV Index (A-L): 31.26 ml/m Ao Diam: 3.5 cm (2.0 - 3.7) AV Cusp: 1.2 cm (1.5 - 2.6) LA Diam: 5.3 cm (2.7 - 3.8) MV EXCURSION: 15.249 mm (> 18.000) MV EF SLOPE: 46 mm/s (70 - 150) EPSS: 0.7 cm MV E Carlos: 0.66 m/s MV DecT: 192 ms MV A Carlos: 0.34 m/s MV E/A Ratio: 1.90 AV maxP.99 mmHg AV meanP.77 mmHg RAP: 5.00 mmHg RVSP: 19.78 mmHg FINDINGS -------- Sinus rhythm. Morbid Obesity The left ventricular size is normal. There is moderate concentric left ventricular hypertrophy. O verall left ventricular systolic function is low-normal with, an EF between 50 - 55 %. The right ventricle is normal in size. The left atrial size is normal. The right atrial size is normal. 5.0mg OF Lumason UTLIZED: 2 OR MORE WALL SEGMENTS NOT VISUALIZED. There is mild aortic valve sclerosis. There is no evidence of aortic regurgitation. There is mild aortic stenosis present. Peak/mean gradient across the Aortic Valve is 15.99mmHg / 8.77mmHg. Mild mitral annular calcification present. Mild mitral regurgitation is present. Mild tricuspid regurgitation present. There is no evidence of pulmonary hypertension. The right v entricular systolic pressure, as measured by Doppler, is 19.78mmHg. There is no pulmonic regurgitation present. The aortic root size is normal. There is no pericardial effusion. CONCLUSIONS -------- 1. Morbid Obesity 2. The left ventricular size is normal. 3. There is moderate concentric left ventricular hypertrophy. 4. Overall left ventricular systolic function is low-normal with, an EF between 50 - 55 %. 5. 5.0mg OF Lumason UTLIZED: 2 OR MORE WALL SEGMENTS NOT VISUALIZED. 6. There is mild aortic valve sclerosis. 7. There is mild aortic stenosis present. 8. Peak/mean gradient across the Aortic Valve is 15.99mmHg / 8.77mmHg. 9. Mild mitral annular calcification present. 10. Mild mitral regurgitation is present. 11. Mild tricuspid regurgitation present. 12. There is no evidence of pulmonary hypertension. 13. The right ventricular systolic pressure, as measured by Doppler, is 19.78mmHg. 14. There is no pulmonic regurgitation present. 15. The aortic root size is normal. 16. There is no pericardial effusion. PRINTMAKER: Malathi Payne RDCS
[2017-11-04] MEDS: LORATADINE 10 MG TAB PO SCH (09:51)
[2017-11-04] MEDS: ATORVASTATIN 40 MG TAB PO SCH (09:51)
[2017-11-04] MEDS: AMIODARONE 100 MG TAB PO SCH (09:51)
[2017-11-04] MEDS: ASPIRIN 81 MG PO SCH (09:51)
[2017-11-04] MEDS: METOPROLOL SUCCINATE (ER) 50 MG TAB.ER.24H PO SCH (09:51)
[2017-11-04] MEDS: APIXABAN 5 MG TAB PO SCH ×2 (09:51→22:01)
[2017-11-04 11:17] LABS: Glucose,Whole Blood 285 mg/dL (75-99)
--- NOTE | 2017-11-04 12:24 | P.PN ---
Subjective Progress Note Date: 11/04/17 Patient is doing well today. No events overnight. Objective - Vital Signs Vital signs: Vital Signs Temp 99.1 F 11/04/17 07:51 Pulse 66 11/04/17 07:51 Resp 16 11/04/17 07:51 BP 108/67 11/04/17 07:51 Pulse Ox 95 11/04/17 07:51 Intake & Output 11/03/17 11/04/17 11/04/17 18:59 06:59 18:59 Intake Total 1100 250 Output Total 40 Balance -40 1100 250 Intake: Intake, IV Titration 800 Amount Sodium Chloride 0.9% 1, 800 000 ml @ 50 mls/hr IV . Q20H [facility] Rx#:[id number] Oral 250 Other 300 Output: Post Void Residual 40 Other: Voiding Method Toilet Toilet Urinal # Voids 3 3 1 - Exam General: The patient is awake and alert, in no distress Eye: there is normal conjunctiva bilaterally. Neck: The neck is supple, there is no JVD. Cardiovascular: Normal S1-S2, no S3-S4, no murmurs. Respiratory: Lungs clear to auscultation bilaterally Gastrointestinal: Abdomen is soft, nontender Musculoskeletal: There is +1-2 pedal edema following the right lower extremity , area of redness marked with no significant improvement. Neurological:. Speech is normal. Skin: Skin is warm and dry - Labs CBC & Chem 7: 11/04/17 07:01 11/04/17 07:01 Labs: Abnormal Lab Results - Last 24 Hours (Table) 11/03/17 11/03/17 11/04/17 Range/Units 16:41 20:24 06:53 WBC (3.8-10.6) k/uL RBC (4.30-5.90) m/uL Hgb (13.0-17.5) gm/dL Hct (39.0-53.0) % Neutrophils # (1.3-7.7) k/uL BUN (9-20) mg/dL Creatinine (0.66-1.25) mg/dL Glucose (74-99) mg/dL POC Glucose (mg/dL) 219 H 292 H 138 H (75-99) mg/dL Calcium (8.4-10.2) mg/dL ALT (21-72) U/L Total Protein (6.3-8.2) g/dL Albumin (3.5-5.0) g/dL 11/04/17 11/04/17 11/04/17 Range/Units 07:01 07:01 11:11 WBC 11.0 H (3.8-10.6) k/uL RBC 3.83 L (4.30-5.90) m/uL Hgb 11.7 L (13.0-17.5) gm/dL Hct 33.9 L (39.0-53.0) % Neutrophils # 8.3 H (1.3-7.7) k/uL BUN 29 H (9-20) mg/dL Creatinine 1.39 H (0.66-1.25) mg/dL Glucose 137 H (74-99) mg/dL POC Glucose (mg/dL) 285 H (75-99) mg/dL Calcium 8.2 L (8.4-10.2) mg/dL ALT 14 L (21-72) U/L Total Protein 5.4 L (6.3-8.2) g/dL Albumin 3.1 L (3.5-5.0) g/dL Microbiology - Last 24 Hours (Table) 11/02/17 12:48 Blood Culture - Preliminary Blood No Growth after 24 hours 11/02/17 11:10 Blood Culture - Preliminary Blood No Growth after 24 hours Assessment and Plan Assessment: 1. Cellulitis involving the right lower extremity with a small ulcer: Continue broad spectrum antibiotic as directed by infectious disease 2. Bacteremia with gram-negative bacilli: Blood culture grew Diphtheroi repeat blood culture negative. Awaiting further recommendations from infectious disease 3. Sepsis without septic shock: improved with IV fluid hydration 4. Acute kidney injury: probably prerenal secondary to hypotension. Hold all nephrotoxic including metformin, lisinopril, and diuretics. Ultrasound of the kidney showed no hydronephrosis 5. Type 2 diabetes: Continue home dose of insulin plus sliding scale 6. Obstructive sleep apnea 7. History of chronic atrial fibrillation status post ablation on anticoagulation 8. Lactic acidosis may be related to sepsis on presentation but definitely worsened by metformin which would be discontinued for now 9. Bilateral lower extremity edema: Probably secondary to venous insufficiency and cellulitis. Echocardiogram of the heart showed preserved ejection fraction of 55% with no significant valvular abnormality 10. Right kidney lesion noted on kidney ultrasound measuring approximately 2 cm. We will need further imaging in the near future with either computed tomography scan or MRI. We will avoid IV contrast during this admission secondary to acute kidney injury.
--- NOTE | 2017-11-04 14:59 | PN ---
PROGRESS NOTE DATE OF SERVICE: 11/04/2017 REASON FOR FOLLOWUP: Sepsis with right lower extremity cellulitis. INTERVAL HISTORY: The patient is afebrile. has been breathing comfortably. Overall, redness of the right leg has improved. Still has some swelling. Patient denies having any chest pain, shortness of breath, no cough, no abdominal pain, no diarrhea. PHYSICAL EXAMINATION: Blood pressure 108/67, pulse of 56, temperature 99.1. He is 95% on room air. General description is a middle-aged. male up in the bed, in no distress. RESPIRATORY SYSTEM: Unlabored breathing, clear to auscultation anteriorly. HEART: S1, S2. Regular rate and rhythm. ABDOMEN: Soft, no tenderness. Right leg redness is improved. LABS: Hemoglobin 11.7, white count of 11, BUN of 29, creatinine is 1.39. DIAGNOSTIC IMPRESSION AND PLAN: 1. Patient with hospital sepsis, source is right lower extremity cellulitis, likely a streptococcal disease. Patient seemed to have shown clinical improvement on cefazolin and plan to continue for another 24 hours and if the patient did improve to finish therapy with oral Keflex. 2. Positive blood culture with the area likely contamination and not a source of infection. No need for further workup for the same. Repeat blood cultures have been negative. MMODL / IJN: [id number] /
[2017-11-04 17:38] LABS: Glucose,Whole Blood 268 mg/dL (75-99)
[2017-11-04 21:11] LABS: Glucose,Whole Blood 289 mg/dL (75-99)
[2017-11-04] MEDS: ACETAMINOPHEN TAB 325 MG TAB PO PRN (22:01)
[2017-11-05] MEDS: CLINDAMYCIN 900 MG in SODIUM CHLORIDE 0.9% 50 ML IVPB SCH ×3 (00:49→16:58)
[2017-11-05 07:32] LABS: Glucose,Whole Blood 145 mg/dL (75-99)
[2017-11-05] MEDS: INSULIN DETEMIR 100 UNIT/ML 10 ML VIAL SQ SCH (08:08)
[2017-11-05] MEDS: INSULIN ASPART 100 UNIT/ML 1 ML 10 ML VIAL SQ SCH ×3 (08:08→17:48)
[2017-11-05] MEDS: LORATADINE 10 MG TAB PO SCH (08:11)
[2017-11-05] MEDS: APIXABAN 5 MG TAB PO SCH (08:11)
[2017-11-05] MEDS: ASPIRIN 81 MG PO SCH (08:11)
[2017-11-05] MEDS: METOPROLOL SUCCINATE (ER) 50 MG TAB.ER.24H PO SCH (08:11)
[2017-11-05] MEDS: ATORVASTATIN 40 MG TAB PO SCH (08:11)
[2017-11-05 08:13] LABS: Basophils % (A) 0 %; Eosinophils # (A) 0.6 k/uL (0-0.7); Eosinophils % (A) 6 %; HCT 32.3 % (39.0-53.0); HGB 11.1 gm/dL (13.0-17.5); Lymphocytes # (A) 1.7 k/uL (1.0-4.8); Lymphocytes % (A) 17 %; MCH 30.5 pg (25.0-35.0); MCHC 34.4 g/dL (31.0-37.0); MCV 88.8 fL (80.0-100.0); Mean Platelet Volume 7.6; Monocytes # (A) 0.6 k/uL (0-1.0); Monocytes % (A) 6 %; Neutrophils # (A) 6.7 k/uL (1.3-7.7); Neutrophils % (A) 69 %; Platelet Count 214 k/uL (150-450); RBC 3.63 m/uL (4.30-5.90); RDW 13.6 % (11.5-15.5); WBC 9.8 k/uL (3.8-10.6)
[2017-11-05 08:36] VITALS: RESP 16
[2017-11-05 09:29] LABS: Albumin 3.1 g/dL (3.5-5.0); Calcium 8.2 mg/dL (8.4-10.2); Potassium 3.6 mmol/L (3.5-5.1); Total Bilirubin 0.5 mg/dL (0.2-1.3); Total Protein 5.3 g/dL (6.3-8.2)
[2017-11-05 11:33] LABS: Glucose,Whole Blood 184 mg/dL (75-99)
--- NOTE | 2017-11-05 12:49 | P.DS ---
Providers Date of admission: 11/01/17 16:08 Expected date of discharge: 11/05/17 Attending physician: Kaye Smith Consults: 11/01/17 16:47 Consult Physician Routine Consulting Provider: Varghese Richardson Consult Reason/Comments: Diabetic foot infection Do you want consulting provider notified?: Already Contacted Primary care physician: Anna Rizvi Hospital Course: 1. Cellulitis involving the right lower extremity with a small ulcer: Patient was started on broad-spectrum antibiotic intravenously in the hospital. Recommendations by infectious disease to finish antibiotic with Keflex for 10 more days 2. Bacteremia with gram-negative bacilli: Blood culture grew Diphtheroi repeat blood culture negative. Awaiting further recommendations from infectious disease 3. Sepsis without septic shock: improved with IV fluid hydration 4. Acute kidney injury: probably prerenal secondary to hypotension. Hold all nephrotoxic including metformin, lisinopril, and diuretics during this hospitalization. Ultrasound of the kidney showed no hydronephrosis 5. Type 2 diabetes: Continue home dose of insulin plus sliding scale 6. Obstructive sleep apnea 7. History of chronic atrial fibrillation status post ablation on anticoagulation 8. Lactic acidosis may be related to sepsis on presentation but definitely worsened by metformin which would be discontinued for now 9. Bilateral lower extremity edema: Probably secondary to venous insufficiency and cellulitis. Echocardiogram of the heart showed preserved ejection fraction of 55% with no significant valvular abnormality 10. Right kidney lesion noted on kidney ultrasound measuring approximately 2 cm. We will need further imaging in the near future with either computed tomography scan or MRI. We will avoid IV contrast during this admission secondary to acute kidney injury. Patient Condition at Discharge: Stable Plan - Discharge Summary Discharge Rx Participant: Yes New Discharge Prescriptions: New Cephalexin [Keflex] 500 mg PO Q6HR #40 cap Furosemide [Lasix] 40 mg PO DAILY #30 tablet Lisinopril [Prinivil] 10 mg PO DAILY #30 tab Continue Atorvastatin [Lipitor] 40 mg PO QAM metFORMIN HCL 1,000 mg PO AC-BID Insulin Glargine,Hum.rec.anlog [Lantus Solostar] 40 unit SQ BID Apixaban [Eliquis] 5 mg PO BID #60 tab Aspirin EC [Ecotrin Low Dose] 81 mg PO BID Nitroglycerin Sl Tabs [Nitrostat] 0.4 mg SUBLINGUAL Q5M PRN tab PRN Reason: Chest Pain INSULIN LISPRO (HumaLOG) [humaLOG] See Protocol SQ AC-TID PRN PRN Reason: Blood Sugar - High Amiodarone [Cordarone] 100 mg PO MOWEFR Metoprolol Succinate [Toprol XL] 25 mg PO DAILY Discontinued Loratadine [Claritin] 10 mg PO QAM Lisinopril [Zestril] 20 mg PO BID tab Furosemide [Lasix] 60 mg PO BID Spironolactone [Aldactone] 25 mg PO DAILY Discharge Medication List Atorvastatin [Lipitor] 40 mg PO QAM 10/18/16 [History] Insulin Glargine,Hum.rec.anlog [Lantus Solostar] 40 unit SQ BID 10/18/16 [ History] metFORMIN HCL 1,000 mg PO AC-BID 10/18/16 [History] Apixaban [Eliquis] 5 mg PO BID #60 tab 10/24/16 [Rx] Aspirin EC [Ecotrin Low Dose] 81 mg PO BID 02/26/17 [History] Nitroglycerin Sl Tabs [Nitrostat] 0.4 mg SUBLINGUAL Q5M PRN tab 02/28/17 [Rx] INSULIN LISPRO (HumaLOG) [humaLOG] See Protocol SQ AC-TID PRN 04/13/17 [History] Amiodarone [Cordarone] 100 mg PO MOWEFR 11/01/17 [History] Metoprolol Succinate [Toprol XL] 25 mg PO DAILY 11/01/17 [History] Cephalexin [Keflex] 500 mg PO Q6HR #40 cap 11/05/17 [Rx] Furosemide [Lasix] 40 mg PO DAILY #30 tablet 11/05/17 [Rx] Lisinopril [Prinivil] 10 mg PO DAILY #30 tab 11/05/17 [Rx] Follow up Appointment(s)/Referral(s): Anna Rizvi MD [Primary Care Provider] - 1-2 days Varghese Richardson MD [STAFF PHYSICIAN] - 1 Week Discharge Disposition: HOME SELF-CARE
--- NOTE | 2017-11-05 13:34 | PN ---
PROGRESS NOTE DATE OF SERVICE: 11/05/2017. REASON FOR FOLLOWUP: Right lower extremity cellulitis with sepsis. INTERVAL HISTORY: The patient is afebrile, currently breathing comfortably. The patient did mention overall he is feeling much better and would like to go home. Denies any chest pain, shortness of breath or cough. Right leg redness is almost resolved. EXAMINATION: Blood pressure 118/65, pulse of 68, temperature 98.3. He is 94% on room air. General description is a middle aged male up in the bed in no distress. RESPIRATORY SYSTEM: Unlabored breathing. Clear to auscultation anteriorly. HEART: S1, S2. Regular rate and rhythm. ABDOMEN: Soft, no tenderness. Right leg redness has resolved. He has small wound on the dorsal aspect of the right big toe but no purulence or any drainage. LABS: Hemoglobin 11.1, white count 9.8. BUN of 21, creatinine 1.14. Blood culture repeat has been negative. DIAGNOSTIC IMPRESSION AND PLAN: 1. Patient admitted to the hospital with sepsis, also right lower extremity cellulitis. Overall improvement on cefazolin. The patient is insisting on going home. He will get his 4 o'clock dose of Clindamycin and Cefazolin and after he can go home on Keflex 500 mg q.6 hours for 10 days. Script was sent to pharmacy. 2. Right big toe wound will be treated with Aquacel silver dressing followed by Moreno wrap to the leg to keep the swelling down and follow up in the office next week. MMODL / IJN: [id number] /
[2017-11-05 14:36] VITALS: BP 165/69; PULSE 64; TEMP 98.7
[2017-11-05 17:37] LABS: Glucose,Whole Blood 231 mg/dL (75-99)
== END 2017-11-05 17:45 | disposition home or self-care (01) | DRG 872 ==
LOC: EC 12:33 → 3SUR 16:08
PROVIDERS: ADMIT Internal Medicine; ATTEND Internal Medicine
DX: A40.9 Streptococcal sepsis, unspecified (principal); N17.9 Acute kidney failure, unspecified; E87.2 Acidosis; L03.115 Cellulitis of right lower limb; Z68.42 Body mass index [BMI] 45.0-49.9, adult; L97.819 Non-pressure chronic ulcer of other part of right lower leg with unspecified severity; E11.628 Type 2 diabetes mellitus with other skin complications; G47.33 Obstructive sleep apnea (adult) (pediatric); I48.2 Chronic atrial fibrillation; I10 Essential (primary) hypertension; E66.9 Obesity, unspecified; J44.9 Chronic obstructive pulmonary disease, unspecified; N28.9 Disorder of kidney and ureter, unspecified; E78.5 Hyperlipidemia, unspecified; M19.90 Unspecified osteoarthritis, unspecified site; I87.2 Venous insufficiency (chronic) (peripheral); Z79.4 Long term (current) use of insulin; Z79.899 Other long term (current) drug therapy; Z86.79 Personal history of other diseases of the circulatory system; Z87.891 Personal history of nicotine dependence; Z79.01 Long term (current) use of anticoagulants; Z90.89 Acquired absence of other organs; Z79.82 Long term (current) use of aspirin
CPT/HCPCS: 36415; 71046; 76770; 80048; 80053; 82550; 82553; 83605; 83735; 83880; 84484; 85025; 85610; 85730; 87040; 93005; 93306; 94640; 94760; 96365; 96375; 99285

== ENCOUNTER → 2018-09-30 | Outpatient (CLI) | payer BC ==
[2018-09-30 10:19] LABS: Calcium 9.1 mg/dL (8.4-10.2); Potassium 4.7 mmol/L (3.5-5.1)
== END ==
LOC: LAB 09:14
PROVIDERS: ATTEND Internal Medicine Clinical Cardiac Electrophysiology
DX: I50.9 Heart failure, unspecified (principal)
CPT/HCPCS: 80048

== ENCOUNTER 2019-01-28 19:28 | Emergency (ER) | payer BC ==
[2019-01-28 20:20] VITALS: BP 188/96; PULSE 79; RESP 20; TEMP 98.2
--- NOTE | 2019-01-28 21:55 | ED ---
Extremity Problem HPI - General Chief complaint: Extremity Problem,Nontraumatic Stated complaint: Left Wrist Pain Time Seen by Provider: 01/28/19 20:46 Source: patient Mode of arrival: ambulatory Limitations: no limitations - History of Present Illness Initial comments: Patient is a 63-year-old male presents emergency department with left wrist pain. Patient reports the pain initially started 2 days ago and as increased in severity. Patient reports limited range of motion due to pain. Patient also reports mild edema on her left wrist and the posterior aspect of the left hand. Patient denies skin discoloration, ecchymosis or erythema. Patient denies any trauma to the area. Patient reports the pain is alleviated at rest and exacerbated with any movement. Patient denies a history of carpal tunnel. - Related Data Home Medications Medication Instructions Recorded Confirmed Atorvastatin [Lipitor] 40 mg PO QAM 10/18/16 01/28/19 Insulin Glargine,Hum.rec.anlog 40 unit SQ BID 10/18/16 01/28/19 [Lantus Solostar] metFORMIN HCL 1,000 mg PO AC-BID 10/18/16 01/28/19 Aspirin EC [Ecotrin Low Dose] 81 mg PO BID 02/26/17 01/28/19 INSULIN LISPRO (HumaLOG) [humaLOG] See Protocol SQ AC-TID PRN 04/13/17 01/28/19 Amiodarone [Cordarone] 100 mg PO MOWEFR 11/01/17 01/28/19 Metoprolol Succinate [Toprol XL] 25 mg PO DAILY 11/01/17 01/28/19 Previous Rx's Medication Instructions Recorded Apixaban [Eliquis] 5 mg PO BID #60 tab 10/24/16 Nitroglycerin Sl Tabs [Nitrostat] 0.4 mg SUBLINGUAL Q5M PRN tab 02/28/17 Cephalexin [Keflex] 500 mg PO Q6HR #40 cap 11/05/17 Furosemide [Lasix] 40 mg PO DAILY #30 tablet 11/05/17 Lisinopril [Prinivil] 10 mg PO DAILY #30 tab 11/05/17 Allergies Allergy/AdvReac Type Severity Reaction Status Date / Time No Known Allergies Allergy Verified 11/01/17 18:24 Review of Systems ROS Statement: Those systems with pertinent positive or pertinent negative responses have been documented in the HPI. ROS Other: All systems not noted in ROS Statement are negative. Past Medical History Past Medical History: Heart Failure, COPD, Diabetes Mellitus, Hyperlipidemia, Hypertension, Osteoarthritis (OA), Sleep Apnea/CPAP/BIPAP Additional Past Medical History / Comment(s): CELLULITIS TO RLE, cpap See Dr House H&P for cardiac history History of Any Multi-Drug Resistant Organisms: None Reported Past Surgical History: Appendectomy, Heart Catheterization, Tonsillectomy Past Anesthesia/Blood Transfusion Reactions: No Reported Reaction Additional Past Anesthesia/Blood Transfusion Reaction / Comment(s): grumpy after surgery Past Psychological History: No Psychological Hx Reported Smoking Status: Former smoker Past Alcohol Use History: None Reported Past Drug Use History: None Reported - Past Family History Mother Family Medical History: No Reported History General Exam Limitations: no limitations General appearance: alert, in no apparent distress, obese Head exam: Present: atraumatic, normocephalic, normal inspection Eye exam: Present: normal appearance, PERRL, EOMI Pupils: Present: normal accommodation ENT exam: Present: normal exam, mucous membranes moist, normal external ear exam Neck exam: Present: normal inspection, full ROM Respiratory exam: Present: normal lung sounds bilaterally Cardiovascular Exam: Present: regular rate, normal rhythm, normal heart sounds Extremities exam: Present: normal inspection, tenderness (Tenderness along the left wrist and posterior aspect of the left hand), normal capillary refill, other (+2 ulnar and radial pulses bilaterally, normal capillary refill, bilaterally. Positive tilt test.). Absent: full ROM (Limited range of motion with flexion and extension, inversion and eversion) Back exam: Present: normal inspection, full ROM Neurological exam: Present: alert, oriented X3 Psychiatric exam: Present: normal affect, normal mood Skin exam: Present: warm, intact, normal color Course Vital Signs 01/28/19 20:16 Temperature 98.2 F Pulse Rate 79 Respiratory 20 Rate Blood Pressure 188/96 O2 Sat by Pulse 96 Oximetry Medical Decision Making - Medical Decision Making is 63-year-old male presenting to emergency Department for left wrist pain. X-ray of the left wrist and hand is indicative of severe first MCP reticulation osteoarthritis, with end-stage [id number] osteosclerosis and osteophytosis. Negative for acute fractures or dislocations. Patient appears to have an acute flareup of his osteoarthritis. Patient advised to alternate between Tylenol and ibuprofen for pain control. Patient advised to keep cold compress at the area of tenderness. Patient was to follow-up with orthopedics for further management. Strict return parameters were thoroughly discussed the patient was understanding and agreeable. Case discussed with physician. Disposition Clinical Impression: Osteoarthritis Disposition: HOME SELF-CARE Condition: Stable Instructions (If sedation given, give patient instructions): Osteoarthritis (DC) Additional Instructions: Please follow up with orthopedics. Alternate between Tylenol and ibuprofen for pain control. Apply cold compress to minimize swelling. Please return to emergency department if symptoms worsen. Is patient prescribed a controlled substance at d/c from ED?: No Referrals: Anna Rizvi MD [Primary Care Provider] - 1-2 days Time of Disposition: 22:46
[2019-01-28] MEDS ORDERED: KETOROLAC 30 MG/ML 1 ML VIAL IM STA (21:56)
--- NOTE | 2019-01-28 22:29 | XR ---
PROCEDURE: XR wrist complete LT - 4V DATE AND TIME: 01/28/2019 9:13 PM CLINICAL INDICATION: PHH; Pain TECHNIQUE: Department protocol COMPARISON: None FINDINGS: There is no fracture or malalignment. The soft tissues are unremarkable. There is severe first [employer] articulation osteoarthritis, with end-stage bone on bone osteosclerosis and osteophytosis. There are other adequate advanced osteoarthritis changes, but not as advanced. IMPRESSION: Negative for fracture or malalignment.
--- NOTE | 2019-01-28 22:30 | XR ---
PROCEDURE: XR hand complete LT - 3V DATE AND TIME: 01/28/2019 9:13 PM CLINICAL INDICATION: PHH; Pain TECHNIQUE: Department protocol COMPARISON: None FINDINGS: There is no fracture or malalignment. The soft tissues are unremarkable. There is severe first [employer] articulation osteoarthritis, with end-stage bone on bone osteosclerosis and osteophytosis. The radiocarpal joint shows severe osteoarthritis changes and there are other adequat e advanced osteoarthritis changes, but not as advanced. IMPRESSION: Negative for fracture or malalignment.
== END 2019-01-28 22:50 | disposition home or self-care (01) ==
LOC: EC 19:28
DX: M19.032 Primary osteoarthritis, left wrist (principal); Q78.2 Osteopetrosis; M25.732 Osteophyte, left wrist; E11.9 Type 2 diabetes mellitus without complications; E78.5 Hyperlipidemia, unspecified; G47.30 Sleep apnea, unspecified; I11.0 Hypertensive heart disease with heart failure; I50.9 Heart failure, unspecified; Z79.4 Long term (current) use of insulin; Z79.82 Long term (current) use of aspirin; Z79.899 Other long term (current) drug therapy; Z87.891 Personal history of nicotine dependence; Z95.5 Presence of coronary angioplasty implant and graft
CPT/HCPCS: 73110; 73130; 99283; 96372; J1885

== ENCOUNTER 2019-06-28 09:07 | Emergency (ER) | payer BC, MEDICARE ==
--- NOTE | 2019-06-28 09:47 | ED ---
Extremity Problem HPI - General Chief complaint: Extremity Problem,Nontraumatic Stated complaint: toe infection Time Seen by Provider: 06/28/19 09:14 Source: patient, RN notes reviewed, old records reviewed Mode of arrival: ambulatory Limitations: no limitations - History of Present Illness Initial comments: 64-year-old male presents emergency department today with 1 day of left great toe irritation and redness. He reports he is having some pain for the past 3 days but noticed the redness just this morning. Patient reports she's had a history of bad infections within his feet which caused sepsis. Patient states that he's had no fevers or chills. Patient reports that he did hip clip his own toenails week or so ago. He states he may think he cut them too short. - Related Data Home Medications Medication Instructions Recorded Confirmed Atorvastatin [Lipitor] 40 mg PO QAM 10/18/16 01/28/19 Insulin Glargine,Hum.rec.anlog 40 unit SQ BID 10/18/16 01/28/19 [Lantus Solostar] metFORMIN HCL 1,000 mg PO AC-BID 10/18/16 01/28/19 Aspirin EC [Ecotrin Low Dose] 81 mg PO BID 02/26/17 01/28/19 INSULIN LISPRO (HumaLOG) [humaLOG] See Protocol SQ AC-TID PRN 04/13/17 01/28/19 Amiodarone [Cordarone] 100 mg PO MOWEFR 11/01/17 01/28/19 Metoprolol Succinate [Toprol XL] 25 mg PO DAILY 11/01/17 01/28/19 Previous Rx's Medication Instructions Recorded Apixaban [Eliquis] 5 mg PO BID #60 tab 10/24/16 Nitroglycerin Sl Tabs [Nitrostat] 0.4 mg SUBLINGUAL Q5M PRN tab 02/28/17 Cephalexin [Keflex] 500 mg PO Q6HR #40 cap 11/05/17 Furosemide [Lasix] 40 mg PO DAILY #30 tablet 11/05/17 Lisinopril [Prinivil] 10 mg PO DAILY #30 tab 11/05/17 Cephalexin [Keflex] 500 mg PO Q6HR 7 Days #28 cap 06/28/19 Allergies Allergy/AdvReac Type Severity Reaction Status Date / Time No Known Allergies Allergy Verified 06/28/19 09:11 Review of Systems ROS Statement: Those systems with pertinent positive or pertinent negative responses have been documented in the HPI. ROS Other: All systems not noted in ROS Statement are negative. Past Medical History Past Medical History: Heart Failure, COPD, Diabetes Mellitus, Hyperlipidemia, Hypertension, Osteoarthritis (OA), Sleep Apnea/CPAP/BIPAP Additional Past Medical History / Comment(s): CELLULITIS TO RLE, cpap See Dr House H&P for cardiac history History of Any Multi-Drug Resistant Organisms: None Reported Past Surgical History: Appendectomy, Heart Catheterization, Tonsillectomy Past Anesthesia/Blood Transfusion Reactions: No Reported Reaction Additional Past Anesthesia/Blood Transfusion Reaction / Comment(s): grumpy after surgery Past Psychological History: No Psychological Hx Reported Smoking Status: Former smoker Past Alcohol Use History: None Reported Past Drug Use History: None Reported - Past Family History Mother Family Medical History: No Reported History General Exam - General Exam Comments Initial Comments: 64-year-old male. Morbidly obese. Patient appears in no distress at this time. Limitations: no limitations General appearance: alert, in no apparent distress Head exam: Present: atraumatic, normocephalic, normal inspection Eye exam: Present: normal appearance, PERRL, EOMI. Absent: scleral icterus, c onjunctival injection, periorbital swelling ENT exam: Present: normal exam, mucous membranes moist Neck exam: Present: normal inspection. Absent: tenderness, meningismus, lymphadenopathy Respiratory exam: Present: normal lung sounds bilaterally. Absent: respiratory distress, wheezes, rales, rhonchi, stridor Cardiovascular Exam: Present: regular rate, normal rhythm, normal heart sounds. Absent: systolic murmur, diastolic murmur, rubs, gallop, clicks GI/Abdominal exam: Present: soft, normal bowel sounds. Absent: distended, tenderness, guarding, rebound, rigid Extremities exam: Present: normal inspection, full ROM, normal capillary refill, other ( has minimal erythema over the left medial right toe, evidence of ingredient toenail on the aspect.). Absent: tenderness, pedal edema, joint swelling, calf tenderness Back exam: Present: normal inspection Neurological exam: Present: alert, oriented X3, CN II-XII intact Psychiatric exam: Present: normal affect, normal mood Skin exam: Present: warm, dry, intact, normal color. Absent: rash Course Vital Signs 06/28/19 06/28/19 09:08 09:35 Temperature 98.0 F 99.1 F Pulse Rate 83 75 Respiratory 18 18 Rate Blood Pressure 205/83 169/73 O2 Sat by Pulse 98 95 Oximetry Medical Decision Making - Medical Decision Making 64-year-old male with history of diabetes. He presents today with left great toe irritation infection. He noticed some redness and swelling over the past day but some pain over the past few days prior to this. Patient reports he has had a history of a diabetic infection and caused significant cellulitis. At this time Patient is afebrile. It appears the Patient has an ingrown toe over the medial aspect after cutting his nails too short. I was able to lift the toe up from the skin using forceps. I discussed the Patient should follow-up with podiatry to possibly have the toenail completely removed and for further toenail care. Patient will be started on Keflex at this time and advised to do frequent soaks of the toe. I discussed with his x-ray appears normalsigns of osteomyelitis. Discussed that the erythema or pain worsens to return to the ER for evaluation. - Lab Data Result diagrams: 06/28/19 09:41 06/28/19 09:41 Lab Results 06/28/19 06/28/19 Range/Units 09:41 09:41 WBC 11.9 H (3.8-10.6) k/uL RBC 5.08 (4.30-5.90) m/uL Hgb 14.4 (13.0-17.5) gm/dL Hct 44.7 (39.0-53.0) % MCV 87.8 (80.0-100.0) fL MCH 28.3 (25.0-35.0) pg MCHC 32.3 (31.0-37.0) g/dL RDW 14.4 (11.5-15.5) % Plt Count 312 (150-450) k/uL Neutrophils % 76 % Lymphocytes % 16 % Monocytes % 4 % Eosinophils % 3 % Basophils % 1 % Neutrophils # 9.0 H (1.3-7.7) k/uL Lymphocytes # 1.9 (1.0-4.8) k/uL Monocytes # 0.4 (0-1.0) k/uL Eosinophils # 0.4 (0-0.7) k/uL Basophils # 0.1 (0-0.2) k/uL Sodium 141 (137-145) mmol/L Potassium 4.2 (3.5-5.1) mmol/L Chloride 104 (98-107) mmol/L Carbon Dioxide 24 (22-30) mmol/L Anion Gap 13 mmol/L BUN 19 (9-20) mg/dL Creatinine 1.08 (0.66-1.25) mg/dL Est GFR (CKD-EPI)AfAm 82 (>60 ml/min/1.73 sqM) Est GFR (CKD-EPI)NonAf 71 (>60 ml/min/1.73 sqM) Glucose 243 H (74-99) mg/dL Calcium 9.2 (8.4-10.2) mg/dL Disposition Clinical Impression: Ingrown toenail of left foot Disposition: HOME SELF-CARE Condition: Good Instructions (If sedation given, give patient instructions): Ingrown Nail (ED) Additional Instructions: Patient to do frequent warm soaks of the toe. Recommended follow-up with your primary care physician or Dr. truss maker for further toenail care. Try to keep the nail up above the skin is a continues to grow. Prescriptions: Cephalexin [Keflex] 500 mg PO Q6HR 7 Days #28 cap Is patient prescribed a controlled substance at d/c from ED?: No Referrals: Anna Rizvi MD [Primary Care Provider] - 1-2 days Roger Smith DPM [STAFF PHYSICIAN] - 1-2 days Time of Disposition: 10:40
--- NOTE | 2019-06-28 10:00 | XR ---
EXAMINATION TYPE: XR foot complete LT DATE OF EXAM: 06/28/2019 CLINICAL HISTORY: Fluid in particular first toe infection. Pain and swelling. TECHNIQUE: Frontal, lateral, and oblique images of the left foot are obtained. COMPARISON: None FINDINGS: No suspicious cortical destruction or periosteal reaction is seen with particular attention to the first toe at area of clinical concern mild soft tissue swelling slightly more prominent over the first toe. Mild subcutaneous edema. Mild to moderate narrowing throughout the phalanges. Tiny inf erior calcaneal spur. Accessory ossicle near the navicular bone. IMPRESSION: There is no radiographic evidence for acute osteomyelitis involving left foot at the fir st toe level.
[2019-06-28 10:06] LABS: Basophils # (A) 0.1 k/uL (0-0.2); Basophils % (A) 1 %; Eosinophils # (A) 0.4 k/uL (0-0.7); Eosinophils % (A) 3 %; HCT 44.7 % (39.0-53.0); HGB 14.4 gm/dL (13.0-17.5); Lymphocytes # (A) 1.9 k/uL (1.0-4.8); Lymphocytes % (A) 16 %; MCH 28.3 pg (25.0-35.0); MCHC 32.3 g/dL (31.0-37.0); MCV 87.8 fL (80.0-100.0); Monocytes # (A) 0.4 k/uL (0-1.0); Monocytes % (A) 4 %; Neutrophils % (A) 76 %; Platelet Count 312 k/uL (150-450); RBC 5.08 m/uL (4.30-5.90); RDW 14.4 % (11.5-15.5); WBC 11.9 k/uL (3.8-10.6)
[2019-06-28 10:26] LABS: Calcium 9.2 mg/dL (8.4-10.2); Potassium 4.2 mmol/L (3.5-5.1)
[2019-06-28 11:29] VITALS: BP 145/79; PULSE 66; RESP 16; TEMP 98.3
== END 2019-06-28 11:28 | disposition home or self-care (01) ==
LOC: EC 09:07
DX: L60.0 Ingrowing nail (principal); E11.9 Type 2 diabetes mellitus without complications; I11.0 Hypertensive heart disease with heart failure; I50.9 Heart failure, unspecified; E78.5 Hyperlipidemia, unspecified; M19.90 Unspecified osteoarthritis, unspecified site; G47.30 Sleep apnea, unspecified; Z79.4 Long term (current) use of insulin; Z79.82 Long term (current) use of aspirin; Z79.899 Other long term (current) drug therapy; Z99.89 Dependence on other enabling machines and devices; Z87.2 Personal history of diseases of the skin and subcutaneous tissue; Z95.5 Presence of coronary angioplasty implant and graft; Z87.891 Personal history of nicotine dependence
CPT/HCPCS: 36415; 80048; 85025; 73630; 96365; 99284; J0690

== ENCOUNTER → 2020-02-15 | Outpatient (CLI) | payer MEDICARE ==
[2020-02-15 10:17] LABS: HCT 44.7 % (39.0-53.0); HGB 14.4 gm/dL (13.0-17.5); MCH 28.9 pg (25.0-35.0); MCHC 32.1 g/dL (31.0-37.0); MCV 89.8 fL (80.0-100.0); Mean Platelet Volume 6.8; Platelet Count 287 k/uL (150-450); RBC 4.98 m/uL (4.30-5.90); RDW 14.5 % (11.5-15.5); WBC 12.5 k/uL (3.8-10.6)
[2020-02-15 16:51] LABS: African American GFR (CKD) 90.5 (60.0-200.0); Albumin 4.2 g/dL (3.80-4.90); Albumin/Globulin Ratio 2.33 (1.60-3.17); Anion Gap 10.4 mmol/L (4.00-12.00); Carbon Dioxide 25.6 mmol/L (21.6-31.8); Chol/HDL Ratio 4.03; Globulin 1.8 g/dL (1.6-3.3); LDL Cholesterol,Calculated 84.6 mg/dL (0.0-131.0); Non-African American GFR(CKD) 78.1 (60.0-200.0); Potassium 4.3 mmol/L (3.5-5.5); Total Bilirubin 0.5 mg/dL (0.3-1.2); VLDL Calculation 15.4 mg/dL (5.00-40.00)
[2020-02-15 17:00] LABS: PSA Annual Screen 0.1 ng/mL (0.0-4.0)
[2020-02-15 18:25] LABS: Hemoglobin A1C 7.6 % (4.0-6.0)
== END | disposition home or self-care (01) ==
LOC: LABWHC1 09:11
PROVIDERS: ATTEND Family Medicine
DX: E11.42 Type 2 diabetes mellitus with diabetic polyneuropathy (principal); I10 Essential (primary) hypertension; I48.91 Unspecified atrial fibrillation; R53.83 Other fatigue; Z12.5 Encounter for screening for malignant neoplasm of prostate
CPT/HCPCS: 80061; 80053; 84443; 85027; 83036; 36415; G0103

== ENCOUNTER 2020-03-30 21:00 | Inpatient (IN) | payer MEDICARE ==
[2020-03-30] MEDS ORDERED: AMIODARONE 360 MG in DEXTROSE 5% IN WATER 200 ML IV ONE ×2 (21:11)
[2020-03-30] MEDS ORDERED: DEXTROSE 5% IN WATER 100 ML with AMIODARONE 150 MG IV ONE (21:11)
[2020-03-30 21:45] LABS: Basophils # (A) 0.1 k/uL (0-0.2); Basophils % (A) 1 %; Eosinophils # (A) 0.4 k/uL (0-0.7); Eosinophils % (A) 3 %; HCT 45.5 % (39.0-53.0); HGB 14.6 gm/dL (13.0-17.5); Lymphocytes # (A) 2.8 k/uL (1.0-4.8); Lymphocytes % (A) 20 %; MCH 28.2 pg (25.0-35.0); MCV 88.1 fL (80.0-100.0); Mean Platelet Volume 7.9; Monocytes # (A) 0.7 k/uL (0-1.0); Monocytes % (A) 5 %; Neutrophils % (A) 71 %; Platelet Count 148 k/uL (150-450); RBC 5.17 m/uL (4.30-5.90); RDW 14.2 % (11.5-15.5); WBC 14.2 k/uL (3.8-10.6)
--- NOTE | 2020-03-30 21:45 | XR ---
EXAMINATION TYPE: XR chest 1V portable DATE OF EXAM: 03/30/2020 COMPARISON: 11/01/2017 INDICATION: Dysrhythmia TECHNIQUE: Single frontal view of the chest is obtained. FINDINGS: The heart size is enlarged. The pulmonary vasculature is normal. Mild right lower lobe infiltrate is present. Follow-up is recommended IMPRESSION: 1. Right lower lobe infiltrate. Correlate for pneumonia. Other etiologies could be considered. 2. Cardiomegaly
[2020-03-30 21:52] LABS: Albumin 4.8 g/dL (3.5-5.0); Calcium 9.8 mg/dL (8.4-10.2); Magnesium 2.1 mg/dL (1.6-2.3); Potassium 4.1 mmol/L (3.5-5.1); Total Bilirubin 0.5 mg/dL (0.2-1.3); Total Protein 7.4 g/dL (6.3-8.2)
[2020-03-30 21:57] LABS: Appearance,Urine Clear (Clear); Bilirubin,Urine Negative (Negative); Blood,Urine Trace (Negative); Color,Urine Light Yellow; Glucose,Urine (UA) Trace (Negative); Ketones,Urine Negative (Negative); Leukocyte Esterase,Urine Negative (Negative); Mucus,Urine Rare /hpf; Nitrite,Urine Negative (Negative); Protein,Urine 2+ (Negative); RBC,Urine 1 /hpf (0-5); Specific Gravity,Urine 1.011 (1.001-1.035); Squamous Epithelial Cell,Urine <1 /hpf (0-4); Urobilinogen,Urine <2.0 mg/dL (<2.0); WBC,Urine <1 /hpf (0-5)
[2020-03-30 22:00] LABS: INR 0.9 (<1.2); Prothrombin Time 9.6 sec (9.0-12.0)
[2020-03-30 22:01] LABS: Partial Thromboplastin Time 20.2 sec (22.0-30.0)
[2020-03-30] MEDS ORDERED: ACETAMINOPHEN TAB 325 MG TAB PO PRN (22:12)
[2020-03-30] MEDS ORDERED: NALOXONE 0.4 MG/ML 1 ML VIAL IV PRN (22:12)
[2020-03-30] MEDS ORDERED: MORPHINE SULFATE 2 MG/ML SYRINGE IV PRN (22:12)
[2020-03-30] MEDS ORDERED: cefTRIAXone IN SWFI 1,000 MG/10 ML SYRINGE IVP STA (22:25)
--- NOTE | 2020-03-30 22:26 | ED ---
General Adult HPI - General Chief complaint: Arrhythmia/Palpitations Stated complaint: abd pain, chest pains Time Seen by Provider: 03/30/20 21:11 Source: patient, RN notes reviewed, old records reviewed Mode of arrival: EMS Limitations: no limitations - History of Present Illness Initial comments: 64-year-old male history of congestive heart failure, atrial fibrillation presents for an episode of dizziness and very mild upper chest pain. He was urged presented emergency department by his . He states he felt lightheaded. Upon arrival to the emergency Department is found to be in ventricular tachycardia. At the time of my evaluation he has no chest pain, no dyspnea. He is alert and oriented 3. - Related Data Home Medications Medication Instructions Recorded Confirmed Atorvastatin [Lipitor] 40 mg PO QAM 10/18/16 01/28/19 Insulin Glargine,Hum.rec.anlog 40 unit SQ BID 10/18/16 01/28/19 [Lantus Solostar] metFORMIN HCL 1,000 mg PO AC-BID 10/18/16 01/28/19 Aspirin EC [Ecotrin Low Dose] 81 mg PO BID 02/26/17 01/28/19 Amiodarone [Cordarone] 100 mg PO MOWEFR 11/01/17 01/28/19 Metoprolol Succinate [Toprol XL] 25 mg PO DAILY 11/01/17 01/28/19 Acetaminophen Tab [Tylenol] 650 mg PO QAM PRN 03/30/20 03/30/20 Ascorbic Acid [Vitamin C] 500 mg PO DAILY 03/30/20 03/30/20 Furosemide [Lasix] 120 mg PO DAILY 03/30/20 03/30/20 Insulin Lispro [humaLOG Kwikpen] 35 unit SQ AC-TID 03/30/20 03/30/20 Insulin Lispro [humaLOG Kwikpen] See Protocol SQ AC-TID PRN 03/30/20 03/30/20 Spironolactone [Aldactone] 50 mg PO DAILY 03/30/20 03/30/20 amLODIPine [Norvasc] 5 mg PO DAILY 03/30/20 03/30/20 lisinopriL [Zestril] 40 mg PO HS 03/30/20 03/30/20 Previous Rx's Medication Instructions Recorded Apixaban [Eliquis] 5 mg PO BID #60 tab 10/24/16 Nitroglycerin Sl Tabs [Nitrostat] 0.4 mg SUBLINGUAL Q5M PRN tab 02/28/17 Allergies Allergy/AdvReac Type Severity Reaction Status Date / Time No Known Allergies Allergy Verified 03/30/20 22:17 Review of Systems ROS Statement: Those systems with pertinent positive or pertinent negative responses have been documented in the HPI. ROS Other: All systems not noted in ROS Statement are negative. Past Medical History Past Medical History: Heart Failure, COPD, Diabetes Mellitus, Hyperlipidemia, Hypertension, Osteoarthritis (OA), Sleep Apnea/CPAP/BIPAP Additional Past Medical History / Comment(s): CELLULITIS TO RLE, cpap See Dr House H&P for cardiac history History of Any Multi-Drug Resistant Organisms: None Reported Past Surgical History: Appendectomy, Heart Catheterization, Tonsillectomy Past Anesthesia/Blood Transfusion Reactions: No Reported Reaction Additional Past Anesthesia/Blood Transfusion Reaction / Comment(s): grumpy after surgery Past Psychological History: No Psychological Hx Reported Past Alcohol Use History: None Reported Past Drug Use History: None Reported - Past Family History Mother Family Medical History: No Reported History General Exam Limitations: no limitations General appearance: alert, in no apparent distress Head exam: Present: atraumatic, normocephalic Eye exam: Present: normal appearance, PERRL, EOMI ENT exam: Present: normal exam Neck exam: Present: normal inspection. Absent: tenderness, meningismus Respiratory exam: Present: decreased breath sounds. Absent: respiratory distress, wheezes Cardiovascular Exam: Present: normal rhythm, tachycardia GI/Abdominal exam: Present: soft. Absent: distended, tenderness, guarding Extremities exam: Present: pedal edema (Chronic venous stasis, right leg significantly more swollen than the left.) Neurological exam: Present: alert, oriented X3, CN II-XII intact Psychiatric exam: Present: normal affect, normal mood Skin exam: Present: warm, intact, diaphoretic Course Vital Signs 03/30/20 03/30/20 21:35 22:03 Temperature 98.4 F Pulse Rate 85 82 Respiratory 24 18 Rate Blood Pressure 162/88 130/80 O2 Sat by Pulse 95 96 Oximetry - Reevaluation(s) Reevaluation #1: 03/30/[id number] Lamb agrees with amiodarone. Patient will be placed in the ICU for close monitoring. EKG Findings - EKG Comments: EKG Findings:: Initial EKG showing a wide-complex regular tachycardia, ventricular tachycardia, left axis deviation, rate of 204, QRS duration is enlarged, 168, QTC 516. Repeat EKG shows sinus rhythm with a first-degree AV block, rate of 92, W[place] interval 246, QRS duration 128, QTC 457, no ST segment elevation. Medical Decision Making - Medical Decision Making 64-year-old male presenting with dizziness, lightheadedness, he is in V. tach, history of atrial fibrillation. He is anticoagulated on Eliquis. Patient bolused with amiodarone, he has improvement in his heart rate, returns to sinus rhythm, he has approximately 30 minutes of runs of ventricular tachycardia. After approximately one hour he maintains his sinus rhythm, blood pressure is stable. I discussed case with cardiology, as well as pulmonology covering for the ICU, Dr. Norwood. He will accept the patient to the ICU. Case discussed with the admitting physician Dr. Harris who will accept. His troponin will be trended this is mildly elevated which I suspect is from demand. Electrolytes within normal limits. Chest x-ray: Concern for right lower lobe pneumonia. Given the elevated white blood cell count, will initiate antibiotics in the emergency department. I reevaluation patient resting comfortably, no chest pain, dizziness and lightheadedness has resolved. 5 - Lab Data Result diagrams: 03/30/20 21:30 03/30/20 21:30 Lab Results 03/30/20 03/30/20 03/30/20 Range/Units 21:30 21:30 21:30 WBC 14.2 H (3.8-10.6) k/uL RBC 5.17 (4.30-5.90) m/uL Hgb 14.6 (13.0-17.5) gm/dL Hct 45.5 (39.0-53.0) % MCV 88.1 (80.0-100.0) fL MCH 28.2 (25.0-35.0) pg MCHC 32.0 (31.0-37.0) g/dL RDW 14.2 (11.5-15.5) % Plt Count 148 L (150-450) k/uL Neutrophils % 71 % Lymphocytes % 20 % Monocytes % 5 % Eosinophils % 3 % Basophils % 1 % Neutrophils # 10.0 H (1.3-7.7) k/uL Lymphocytes # 2.8 (1.0-4.8) k/uL Monocytes # 0.7 (0-1.0) k/uL Eosinophils # 0.4 (0-0.7) k/uL Basophils # 0.1 (0-0.2) k/uL PT 9.6 (9.0-12.0) sec INR 0.9 (<1.2) APTT 20.2 L (22.0-30.0) sec Sodium (137-145) mmol/L Potassium (3.5-5.1) mmol/L Chloride (98-107) mmol/L Carbon Dioxide (22-30) mmol/L Anion Gap mmol/L BUN (9-20) mg/dL Creatinine (0.66-1.25) mg/dL Est GFR (CKD-EPI)AfAm (>60 ml/min/1.73 sqM) Est GFR (CKD-EPI)NonAf (>60 ml/min/1.73 sqM) Glucose (74-99) mg/dL Calcium (8.4-10.2) mg/dL Magnesium (1.6-2.3) mg/dL Total Bilirubin (0.2-1.3) mg/dL AST (17-59) U/L ALT (4-49) U/L Alkaline Phosphatase (38-126) U/L Troponin I (0.000-0.034) ng/mL Total Protein (6.3-8.2) g/dL Albumin (3.5-5.0) g/dL Urine Color Light Yellow Urine Appearance Clear (Clear) Urine pH 7.0 (5.0-8.0) Ur Specific [place] 1.011 (1.001-1.035) Urine Protein 2+ H (Negative) Urine Glucose (UA) Trace H (Negative) Urine Ketones Negative (Negative) Urine Blood Trace H (Negative) Urine Nitrite Negative (Negative) Urine Bilirubin Negative (Negative) Urine Urobilinogen <2.0 (<2.0) mg/dL Ur Leukocyte Esterase Negative (Negative) Urine RBC 1 (0-5) /hpf Urine WBC <1 (0-5) /hpf Ur Squamous Epith Cells <1 (0-4) /hpf Urine Mucus Rare H (None) /hpf 03/30/20 03/30/20 Range/Units 21:30 21:30 WBC (3.8-10.6) k/uL RBC (4.30-5.90) m/uL Hgb (13.0-17.5) gm/dL Hct (39.0-53.0) % MCV (80.0-100.0) fL MCH (25.0-35.0) pg MCHC (31.0-37.0) g/dL RDW (11.5-15.5) % Plt Count (150-450) k/uL Neutrophils % % Lymphocytes % % Monocytes % % Eosinophils % % Basophils % % Neutrophils # (1.3-7.7) k/uL Lymphocytes # (1.0-4.8) k/uL Monocytes # (0-1.0) k/uL Eosinophils # (0-0.7) k/uL Basophils # (0-0.2) k/uL PT (9.0-12.0) sec INR (<1.2) APTT (22.0-30.0) sec Sodium 139 (137-145) mmol/L Potassium 4.1 (3.5-5.1) mmol/L Chloride 102 (98-107) mmol/L Carbon Dioxide 27 (22-30) mmol/L Anion Gap 10 mmol/L BUN 33 H (9-20) mg/dL Creatinine 1.01 (0.66-1.25) mg/dL Est GFR (CKD-EPI)AfAm 89 (>60 ml/min/1.73 sqM) Est GFR (CKD-EPI)NonAf 77 (>60 ml/min/1.73 sqM) Glucose 186 H (74-99) mg/dL Calcium 9.8 (8.4-10.2) mg/dL Magnesium 2.1 (1.6-2.3) mg/dL Total Bilirubin 0.5 (0.2-1.3) mg/dL AST 37 (17-59) U/L ALT 33 (4-49) U/L Alkaline Phosphatase 71 (38-126) U/L Troponin I 0.052 H* (0.000-0.034) ng/mL Total Protein 7.4 (6.3-8.2) g/dL Albumin 4.8 (3.5-5.0) g/dL Urine Color Urine Appearance (Clear) Urine pH (5.0-8.0) Ur Specific [place] (1.001-1.035) Urine Protein (Negative) Urine Glucose (UA) (Negative) Urine Ketones (Negative) Urine Blood (Negative) Urine Nitrite (Negative) Urine Bilirubin (Negative) Urine Urobilinogen (<2.0) mg/dL Ur Leukocyte Esterase (Negative) Urine RBC (0-5) /hpf Urine WBC (0-5) /hpf Ur Squamous Epith Cells (0-4) /hpf Urine Mucus (None) /hpf Critical Care Time Critical Care Time: Yes Total Critical Care Time: 35 Disposition Clinical Impression: Ventricular tachycardia, Elevated troponin I level Disposition: ADMITTED IP TO THIS [facility] Condition: Serious Is patient prescribed a controlled substance at d/c from ED?: No Referrals: Anna Rizvi MD [Primary Care Provider] - 1-2 days Decision to Admit Reason: Admit from EC Decision Date: 03/30/20 Decision Time: 22:26
[2020-03-30 23:13] LABS: T4, Free (Free Thyroxine) 1.27 ng/dL (0.78-2.19)
[2020-03-30 23:30] LABS: Glucose,Whole Blood 175 mg/dL (75-99)
[2020-03-31] MEDS ORDERED: AMIODARONE 300 MG in DEXTROSE 5% IN WATER 250 ML IV SCH ×2 (03:12)
[2020-03-31 04:15] LABS: Basophils # (A) 0.1 k/uL (0-0.2); Basophils % (A) 1 %; Eosinophils # (A) 0.2 k/uL (0-0.7); Eosinophils % (A) 2 %; HCT 41.2 % (39.0-53.0); HGB 13.8 gm/dL (13.0-17.5); Lymphocytes # (A) 2.6 k/uL (1.0-4.8); Lymphocytes % (A) 18 %; MCH 29.5 pg (25.0-35.0); MCHC 33.5 g/dL (31.0-37.0); MCV 88.3 fL (80.0-100.0); Mean Platelet Volume 6.6; Monocytes # (A) 0.8 k/uL (0-1.0); Monocytes % (A) 5 %; Neutrophils # (A) 10.6 k/uL (1.3-7.7); Neutrophils % (A) 73 %; Platelet Count 291 k/uL (150-450); RBC 4.67 m/uL (4.30-5.90); RDW 14.2 % (11.5-15.5); WBC 14.5 k/uL (3.8-10.6)
[2020-03-31 04:25] LABS: African American GFR (CKD) >90 (>60 ml/min/1.73 sqM); Anion Gap 9 mmol/L; Blood Urea Nitrogen 32 mg/dL (9-20); Calcium 9.1 mg/dL (8.4-10.2); Carbon Dioxide 26 mmol/L (22-30); Chloride 103 mmol/L (98-107); Glucose 149 mg/dL (74-99); Non-African American GFR(CKD) 85 (>60 ml/min/1.73 sqM); Potassium 4.2 mmol/L (3.5-5.1); Sodium 138 mmol/L (137-145)
--- NOTE | 2020-03-31 06:38 | XR ---
EXAMINATION TYPE: XR chest 1V portable DATE OF EXAM: 03/31/2020 CLINICAL HISTORY: Difficulty breathing progress study. TECHNIQUE: Single AP portable upright view of the chest is obtained. COMPARISON: Chest x-ray from one day earlier and older studies. FINDINGS: Cardiac silhouette size is slightly less prominent, remains mildly enlarged. Improved aera tion right medial lung base noted. No new focal airspace opacity, pleural effusion, or pneumothorax i s evident. Osseous structures are intact. IMPRESSION: Resolving/resolved medial right lower lung infiltrate. No new infiltrate is present.
[2020-03-31 07:01] LABS: Glucose,Whole Blood 125 mg/dL (75-99)
--- NOTE | 2020-03-31 07:26 | P.CRDCN ---
History of Present Illness Consult date: 03/31/20 Chief complaint: Ventricular tachycardia History of present illness: This is a very pleasant 64-year-old gentleman with a past medical history si gnificant for paroxysmal atrial fibrillation status post ablation as well as he is on oral anticoagulation as well as diabetes and hypertension and dyslipidemia and obesity was brought to the hospital by ambulance after he did have an episode of loss of consciousness at home and was found to be in ventricular tachycardia. The patient was in his usual state of health until yesterday when his was at home and she heard a noise. Subsequently the patient was found to be collapsed on the floor. The patient remember that he lost his consciousness. Ambulance was called and at that point the patient was found to be in ventricular tachycardia but he did have a pulse. Subsequently he was star sonia on amiodarone IV and converted to normal sinus mechanism on the way to the hospital. Since then he has been in normal sinus rhythm. I did review the EKG which showed very wide complex tachycardia represent ventricular tachycardia. The patient doesn't report having any symptoms of chest pain or chest discomfort before the episode but he does have shortness of breath with exertion but he stated he does have that all the time. No symptoms of heart racing or fluttering around the episode and no symptoms or dizziness or lightheadedness. The patient is not aware of any prior history of coronary artery disease and he stated that he underwent a heart catheterization several years ago and he was told that his coronaries were normal. No documentation of heart catheterization in the electronic medical records but there is documentation of atrial fibrillation ablation. An echocardiogram was performed in 2018 and revealed normal left ventricle systolic function was evidence of mild aortic stenosis only. The patient has been maintaining normal sinus mechanism since he has been in the hospital. He is on amiodarone IV at this point. At home he was receiving amiodarone by mouth at 100 mg by mouth daily. The troponin is a slightly elevated. The EKG after he was converted to normal sinus mechanism showed sinus rhythm with left anterior fascicular block but there is no concerning ST or T-wave abnormalities at this point. Past Medical History Past Medical History: Atrial Fibrillation, Heart Failure, COPD, Diabetes Mellitus, Hyperlipidemia, Hypertension, Osteoarthritis (OA), Sleep Apnea/CPAP/BIPAP Additional Past Medical History / Comment(s): CELLULITIS TO RLE, cpap See Dr House H&P for cardiac history. History of Any Multi-Drug Resistant Organisms: None Reported Past Surgical History: Ablation, Appendectomy, Heart Catheterization, Tonsillectomy Additional Past Surgical History / Comment(s): "Heart cath done for ablation" Past Anesthesia/Blood Transfusion Reactions: No Reported Reaction Additional Past Anesthesia/Blood Transfusion Reaction / Comment(s): grumpy after surgery Past Psychological History: No Psychological Hx Reported Smoking Status: Former smoker Past Alcohol Use History: None Reported Additional Past Alcohol Use History / Comment(s): cigar once or twice a day Past Drug Use History: None Reported - Past Family History Mother Family Medical History: No Reported History Father Family Medical History: Myocardial Infarction (VT) Medications and Allergies Home Medications Medication Instructions Recorded Confirmed Type Atorvastatin [Lipitor] 40 mg PO QAM 10/18/16 03/30/20 History Insulin Glargine,Hum.rec.anlog 60 unit SQ BID 10/18/16 03/30/20 History [Lantus Solostar] metFORMIN HCL 1,000 mg PO AC-BID 10/18/16 03/30/20 History Apixaban [Eliquis] 5 mg PO BID #60 tab 10/24/16 03/30/20 Rx Aspirin EC [Ecotrin Low Dose] 81 mg PO BID 02/26/17 03/30/20 History Nitroglycerin Sl Tabs [Nitrostat] 0.4 mg SUBLINGUAL Q5M PRN tab 02/28/17 03/30/20 Rx Amiodarone [Cordarone] 100 mg PO MOWEFR 11/01/17 03/30/20 History Metoprolol Succinate [Toprol XL] 25 mg PO DAILY 11/01/17 03/30/20 History Acetaminophen Tab [Tylenol] 650 mg PO QAM PRN 03/30/20 03/30/20 History Ascorbic Acid [Vitamin C] 500 mg PO DAILY 03/30/20 03/30/20 History Furosemide [Lasix] 120 mg PO DAILY 03/30/20 03/30/20 History Insulin Lispro [humaLOG Kwikpen] 35 unit SQ AC-TID 03/30/20 03/30/20 History Insulin Lispro [humaLOG Kwikpen] See Protocol SQ AC-TID PRN 03/30/20 03/30/20 History Spironolactone [Aldactone] 50 mg PO DAILY 03/30/20 03/30/20 History amLODIPine [Norvasc] 5 mg PO DAILY 03/30/20 03/30/20 History lisinopriL [Zestril] 40 mg PO HS 03/30/20 03/30/20 History Allergies Allergy/AdvReac Type Severity Reaction Status Date / Time No Known Allergies Allergy Verified 03/30/20 22:17 Physical Exam Vitals: Vital Signs Temp Pulse Resp BP Pulse Ox 03/31/20 07:00 63 30 H 94 L 03/31/20 06:30 62 17 134/74 95 03/31/20 06:00 59 L 14 95 03/31/20 05:30 63 12 124/75 95 03/31/20 05:00 65 13 127/65 96 03/31/20 04:30 63 15 127/65 95 03/31/20 04:00 97.7 F 63 15 115/105 94 L 03/31/20 03:30 60 12 96 03/31/20 03:00 67 15 96 03/31/20 02:30 59 L 16 146/75 95 03/31/20 02:00 60 16 94 L 03/31/20 01:30 66 17 142/76 93 L 03/31/20 01:00 64 20 168/116 96 03/31/20 00:50 66 16 168/116 96 03/31/20 00:40 73 11 L 168/116 97 03/31/20 00:30 69 8 L 143/84 97 03/31/20 00:20 66 21 143/84 96 03/31/20 00:10 67 16 143/84 96 03/31/20 00:00 98.3 F 71 22 134/79 96 03/30/20 23:50 69 23 134/79 96 03/30/20 23:40 75 12 130/77 03/30/20 23:30 70 18 136/80 03/30/20 23:00 76 16 131/72 97 03/30/20 22:58 98.4 F 16 97 03/30/20 22:03 82 18 130/80 96 03/30/20 21:35 98.4 F 85 24 162/88 95 Intake and Output 03/30/20 03/31/20 03/31/20 22:59 06:59 14:59 Intake Total 250 Output Total 575 Balance -325 Intake: Oral 250 Output: Urine 575 Other: Voiding Method Urinal # Voids 0 0 Weight 159.9 kg - Constitutional General appearance: no acute distress - Respiratory Respiratory: bilateral: CTA - Cardiovascular Rhythm: regular Heart sounds: normal: S1, S2 Results 03/31/20 03:18 03/31/20 03:13 Cardiac Enzymes 03/30/20 03/30/20 03/31/20 Range/Units 21:30 21:30 01:00 AST 37 (17-59) U/L Troponin I 0.052 H* 0.260 H* (0.000-0.034) ng/mL Coagulation 03/30/20 Range/Units 21:30 PT 9.6 (9.0-12.0) sec APTT 20.2 L (22.0-30.0) sec CBC 03/30/20 03/31/20 Range/Units 21:30 03:18 WBC 14.2 H 14.5 H (3.8-10.6) k/uL RBC 5.17 4.67 (4.30-5.90) m/uL Hgb 14.6 13.8 (13.0-17.5) gm/dL Hct 45.5 41.2 (39.0-53.0) % Plt Count 148 L 291 (150-450) k/uL Comprehensive Metabolic Panel 03/30/20 03/31/20 Range/Units 21:30 03:13 Sodium 139 138 (137-145) mmol/L Potassium 4.1 4.2 (3.5-5.1) mmol/L Chloride 102 103 (98-107) mmol/L Carbon Dioxide 27 26 (22-30) mmol/L BUN 33 H 32 H (9-20) mg/dL Creatinine 1.01 0.94 (0.66-1.25) mg/dL Glucose 186 H 149 H (74-99) mg/dL Calcium 9.8 9.1 (8.4-10.2) mg/dL AST 37 (17-59) U/L ALT 33 (4-49) U/L Alkaline Phosphatase 71 (38-126) U/L Total Protein 7.4 (6.3-8.2) g/dL Albumin 4.8 (3.5-5.0) g/dL Current Medications Generic Name Dose Route Start Last Admin Trade Name Freq PRN Reason Stop Dose Admin Acetaminophen 650 mg 03/30/20 22:12 Acetaminophen Tab 325 Mg Tab PO Q4HR PRN Fever and/or Mild Pain Apixaban 5 mg 03/31/20 09:00 Apixaban 5 Mg Tab PO BID [facility] Aspirin 81 mg 03/31/20 09:00 Aspirin 81 Mg PO BID [facility] Atorvastatin Calcium 40 mg 03/31/20 09:00 Atorvastatin 40 Mg Tab PO QAM [facility] Furosemide 40 mg 03/31/20 09:00 Furosemide 40 Mg Tab PO BID@0900,1600 [facility] Amiodarone HCl 300 mg/ 250 mls @ 25 mls/hr 03/31/20 03:12 03/31/20 02:45 Dextrose/Water IV 03/31/20 21:11 0.5 mg/min .Q10H [facility] 25 mls/hr Administration Protocol 0.5 MG/MIN Metoprolol Succinate 25 mg 03/31/20 09:00 Metoprolol Succinate (Er) 25 Mg Tab.Er.24h PO DAILY [facility] Morphine Sulfate 2 mg 03/30/20 22:12 Morphine Sulfate 2 Mg/Ml Syringe IV Q2HR PRN Pain Scale 4 to 5 Naloxone HCl 0.2 mg 03/30/20 22:12 Naloxone 0.4 Mg/Ml 1 Ml Vial IV Q2M PRN Opioid Reversal Intake and Output 03/30/20 03/31/20 03/31/20 22:59 06:59 14:59 Intake Total 250 Output Total 575 Balance -325 Intake: Oral 250 Output: Urine 575 Other: Voiding Method Urinal # Voids 0 0 Weight 159.9 kg 03/31/20 03:18 03/31/20 03:13 Assessment and Plan Assessment: Assessment #1 ventricular tachycardia #2 an episode of syncope secondary to ventricular tachycardia #3 mildly abnormal cardiac enzymes #4 paroxysmal atrial fibrillation #5 multiple comorbid conditions Plan #1 the patient has been maintaining normal sinus mechanism #2 continue amiodarone IV at this point #3 rule out severe underlying coronary artery disease #4 obtain an echocardiogram was Doppler #5 maintain normal electrolytes including magnesium #6 follow-up with the patient
[2020-03-31] MEDS: ATORVASTATIN 40 MG TAB PO SCH (08:34)
[2020-03-31] MEDS: METOPROLOL SUCCINATE (ER) 25 MG TAB.ER.24H PO SCH (08:34)
[2020-03-31] MEDS: ASPIRIN 81 MG PO SCH ×2 (08:34→21:13)
[2020-03-31] MEDS: FUROSEMIDE 40 MG TAB PO SCH ×2 (08:34→16:58)
[2020-03-31] MEDS ORDERED: FUROSEMIDE 40 MG TAB PO SCH (09:00)
[2020-03-31] MEDS ORDERED: APIXABAN 5 MG TAB PO SCH (09:00)
[2020-03-31 11:58] LABS: Glucose,Whole Blood 235 mg/dL (75-99)
--- NOTE | 2020-03-31 13:00 | P.CNPUL ---
History of Present Illness Consult date: 03/31/20 Requesting physician: Jose Jaramillo Reason for consult: other (ICU management) Chief complaint: Passing out History of present illness: This is a 64-year-old white male with history of paroxysmal atrial fibrillation, status post ablation, patient is maintained on anticoagulation therapy. He norm ally sees Dr. Phelps on a regular basis. Patient is also known to have a strong family history of premature coronary artery disease, father at age 55 from acute myocardial infarction. According to the patient his called EMS because she heard a noise, and she found her collapsed on the floor. Patient remembers that he passed out, but couldn't give any details. Upon EMS arrival, patient was noted to be in ventricular tachycardia, and he did have a pulse. Patient was placed on amiodarone, and converted to a normal sinus rhythm in the emergency room. Considering his presentation of ventricular tachycardia, patient was admitted to the ICU, and I was asked to see him on consultation. Presently the patient is in normal sinus rhythm, asymptomatic, denies any chest pain, denies any cough, no wheezing, no shortness of breath. Denies any palpitations. Denies any neurological symptoms. Patient states that he had previous cardiac catheterization back in 2006 done at [facility], and no cardiac catheterization since then. But he did have ablation supposedly in [address] Phelps. Review of Systems Constitutional: Negative HEENT: Negative Pulmonary: Negative Cardiac: As noted in HPI. GI: Negative Genitourinary: Negative Muscular skeletal: Negative Endocrine: Negative Hematologic: Negative Skin: Negative Neuropsych: Negative Psychiatric: Negative Past Medical History Past Medical History: Atrial Fibrillation, Heart Failure, COPD, Diabetes Mellitus, Hyperlipidemia, Hypertension, Osteoarthritis (OA), Sleep Apnea/CPAP/BIPAP Additional Past Medical History / Comment(s): CELLULITIS TO RLE, cpap See Dr House H&P for cardiac history. History of Any Multi-Drug Resistant Organisms: None Reported Past Surgical History: Ablation, Appendectomy, Heart Catheterization, Tonsillectomy Additional Past Surgical History / Comment(s): "Heart cath done for ablation" Past Anesthesia/Blood Transfusion Reactions: No Reported Reaction Additional Past Anesthesia/Blood Transfusion Reaction / Comment(s): grumpy after surgery Past Psychological History: No Psychological Hx Reported Smoking Status: Former smoker Past Alcohol Use History: None Reported Additional Past Alcohol Use History / Comment(s): cigar once or twice a day Past Drug Use History: None Reported - Past Family History Mother Family Medical History: No Reported History Father Family Medical History: Myocardial Infarction (DC) Medications and Allergies Home Medications Medication Instructions Recorded Confirmed Type Atorvastatin [Lipitor] 40 mg PO QAM 10/18/16 03/30/20 History Insulin Glargine,Hum.rec.anlog 60 unit SQ BID 10/18/16 03/30/20 History [Lantus Solostar] metFORMIN HCL 1,000 mg PO AC-BID 10/18/16 03/30/20 History Apixaban [Eliquis] 5 mg PO BID #60 tab 10/24/16 03/30/20 Rx Aspirin EC [Ecotrin Low Dose] 81 mg PO BID 02/26/17 03/30/20 History Nitroglycerin Sl Tabs [Nitrostat] 0.4 mg SUBLINGUAL Q5M PRN tab 02/28/17 03/30/20 Rx Amiodarone [Cordarone] 100 mg PO MOWEFR 11/01/17 03/30/20 History Metoprolol Succinate [Toprol XL] 25 mg PO DAILY 11/01/17 03/30/20 History Acetaminophen Tab [Tylenol] 650 mg PO QAM PRN 03/30/20 03/30/20 History Ascorbic Acid [Vitamin C] 500 mg PO DAILY 03/30/20 03/30/20 History Furosemide [Lasix] 120 mg PO DAILY 03/30/20 03/30/20 History Insulin Lispro [humaLOG Kwikpen] 35 unit SQ AC-TID 03/30/20 03/30/20 History Insulin Lispro [humaLOG Kwikpen] See Protocol SQ AC-TID PRN 03/30/20 03/30/20 History Spironolactone [Aldactone] 50 mg PO DAILY 03/30/20 03/30/20 History amLODIPine [Norvasc] 5 mg PO DAILY 03/30/20 03/30/20 History lisinopriL [Zestril] 40 mg PO HS 03/30/20 03/30/20 History Allergies Allergy/AdvReac Type Severity Reaction Status Date / Time No Known Allergies Allergy Verified 03/30/20 22:17 Physical Exam Vitals: Vital Signs Temp Pulse Resp BP Pulse Ox 03/31/20 12:00 98.2 F 63 18 150/85 97 03/31/20 11:00 64 10 L 157/75 03/31/20 10:00 60 17 179/108 94 L 03/31/20 09:00 69 16 134/65 96 03/31/20 08:00 98.0 F 64 11 L 144/76 96 03/31/20 07:00 63 30 H 94 L 03/31/20 06:30 62 17 134/74 95 03/31/20 06:00 59 L 14 95 03/31/20 05:30 63 12 124/75 95 03/31/20 05:00 65 13 127/65 96 03/31/20 04:30 63 15 127/65 95 03/31/20 04:00 97.7 F 63 15 115/105 94 L 03/31/20 03:30 60 12 96 03/31/20 03:00 67 15 96 03/31/20 02:30 59 L 16 146/75 95 03/31/20 02:00 60 16 94 L 03/31/20 01:30 66 17 142/76 93 L 03/31/20 01:00 64 20 168/116 96 03/31/20 00:50 66 16 168/116 96 03/31/20 00:40 73 11 L 168/116 97 03/31/20 00:30 69 8 L 143/84 97 03/31/20 00:20 66 21 143/84 96 03/31/20 00:10 67 16 143/84 96 03/31/20 00:00 98.3 F 71 22 134/79 96 03/30/20 23:50 69 23 134/79 96 03/30/20 23:40 75 12 130/77 03/30/20 23:30 70 18 136/80 03/30/20 23:00 76 16 131/72 97 03/30/20 22:58 98.4 F 16 97 03/30/20 22:03 82 18 130/80 96 03/30/20 21:35 98.4 F 85 24 162/88 95 Intake and Output 03/30/20 03/31/20 03/31/20 22:59 06:59 14:59 Intake Total 250 Output Total 570 901 Balance -325 904 Intake: Oral 250 Output: Urine 575 900 Urine/Stool Mix 1 Other: Voiding Method Urinal Urinal # Voids 0 0 Weight 159.9 kg Physical Exam: Revealed a 64-year-old white male pleasant in no distress. Head: Atraumatic, normocephalic. HEENT:[Neck is supple.] [No neck masses.] [No thyromegaly.] [No JVD.] Chest: [Clear throughout, no crackles, no rhonchi, no wheezes.] Cardiac Exam: [Normal S1 and S2, no S3 gallop, no murmur.] Abdomen: [Soft, nontender, no megaly, no rebound, no guarding, normal bowel sounds.] Extremities: [No clubbing, chronic venous stasis changes noted in both lower extremities. Neurological Exam: [No focal neurologic deficit.] Alert and oriented 3. Psychiatric: Normal mood, affect and normal mental status examination. Skin: No rashes. Results - Laboratory Findings CBC and BMP: 03/31/20 03:18 03/31/20 03:13 PT/INR, D-dimer PT 9.6 sec (9.0-12.0) 03/30/20 21:30 INR 0.9 (<1.2) 03/30/20 21:30 Abnormal lab findings: Abnormal Labs 03/30/20 03/30/20 03/30/20 21:30 21:30 21:30 WBC 14.2 H Plt Count 148 L Neutrophils # 10.0 H APTT 20.2 L BUN Glucose POC Glucose (mg/dL) Troponin I TSH Urine Protein 2+ H Urine Glucose (UA) Trace H Urine Blood Trace H Urine Mucus Rare H 03/30/20 03/30/20 03/30/20 21:30 21:30 21:41 WBC Plt Count Neutrophils # APTT BUN 33 H Glucose 186 H POC Glucose (mg/dL) Troponin I 0.052 H* TSH 6.110 H Urine Protein Urine Glucose (UA) Urine Blood Urine Mucus 03/30/20 03/31/20 03/31/20 23:19 01:00 03:13 WBC Plt Count Neutrophils # APTT BUN 32 H Glucose 149 H POC Glucose (mg/dL) 175 H Troponin I 0.260 H* TSH Urine Protein Urine Glucose (UA) Urine Blood Urine Mucus 03/31/20 03/31/20 03/31/20 03:18 06:59 11:57 WBC 14.5 H Plt Count Neutrophils # 10.6 H APTT BUN Glucose POC Glucose (mg/dL) 125 H 235 H Troponin I TSH Urine Protein Urine Glucose (UA) Urine Blood Urine Mucus - Diagnostic Findings Chest x-ray: image reviewed (Chest x-ray showed cardiomegaly, improved aeration of the right medial lung base, no active process noted.) Assessment and Plan Assessment: Impression: Ventricular tachycardia, responded to amiodarone drip. Syncope secondary to ventricular tachycardia. History of paroxysmal atrial fibrillation. Family history of premature coronary artery disease. Type 2 diabetes. Obstructive sleep apnea syndrome on CPAP. Dyslipidemia. History of bacteremia History of pulmonary edema noted on previous admissions. Recommendation: Continue amiodarone Resume home meds. Resume Lasix. Continue insulin. Continue statins. Patient will likely need to further cardiac evaluation, and most likely will require cardiac catheterization especially with his presentation and with his strong family history of premature coronary artery disease We'll continue to follow while in the ICU Time with Patient: Greater than 30
--- NOTE | 2020-03-31 13:00 | ECHOF ---
Referral Reason:V-tach MEASUREMENTS -------- HEIGHT: 182.9 cm WEIGHT: 159.7 kg BP: 134/74 RVIDd: 3.9 cm (< 3.3) IVSd: 1.5 cm (0.6 - 1.1) LVIDd: 5.4 cm (3.9 - 5.3) LVPWd: 2.0 cm (0.6 - 1.1) IVSs: 2.2 cm LVIDs: 4.5 cm LVPWs: 1.3 cm LA Diam: 5.1 cm (2.7 - 3.8) LAESV Index (A-L): 40.83 ml/m Ao Diam: 3.4 cm (2.0 - 3.7) AV Cusp: 1.4 cm (1.5 - 2.6) LA Diam: 5.1 cm (2.7 - 3.8) MV EXCURSION: 15.662 mm (> 18.000) MV EF SLOPE: 29 mm/s (70 - 150) EPSS: 0.9 cm MV E Carlos: 0.82 m/s MV DecT: 170 ms MV A Carlos: 0.38 m/s MV E/A Ratio: 2.18 AV maxP.74 mmHg AV meanP.77 mmHg RAP: 5.00 mmHg RVSP: 14.52 mmHg FINDINGS -------- Sinus rhythm. Morbid Obesity The left ventricular size is normal. There is moderate concentric left ventricular hypertrophy. O verall left ventricular systolic function is mild-moderately impaired with, an EF between 40 - 45 %. The right ventricle is normal in size. The left atrium is moderately dilated. The right atrial size is normal. xx ml of Lumason was utilized for enhancement of images. There is mild aortic stenosis present. Peak/mean gradient across the Aortic Valve is 13.74mmHg / 7. 77mmHg. Mild mitral regurgitation is present. Mild tricuspid regurgitation present. Right ventricular systolic pressure is normal at < 35 mmHg. The pulmonic valve was not well visualized. The aortic root size is normal. There is no pericardial effusion. CONCLUSIONS -------- 1. The left ventricular size is normal. 2. There is moderate concentric left ventricular hypertrophy. 3. Overall left ventricular systolic function is mild-moderately impaired with, an EF between 40 - 45 %. 4. The right ventricle is normal in size. 5. The left atrium is moderately dilated. 6. The right atrial size is normal. 7. xx ml of Lumason was utilized for enhancement of images. 8. There is mild aortic stenosis present. 9. Peak/mean gradient across the Aortic Valve is 13.74mmHg / 7.77mmHg. 10. Mild mitral regurgitation is present. 11. Mild tricuspid regurgitation present. 12. The pulmonic valve was not well visualized. 13. There is no pericardial effusion. COMMERCIAL ROOFING ESTIMATOR: Malathi Payne RDCS
[2020-03-31] MEDS ORDERED: INSULIN DETEMIR (LEVEMIR) 100 UNIT/ML SYR SQ ONE (13:15)
--- NOTE | 2020-03-31 15:54 | P.HPIM ---
History of Present Illness H&P Date: 03/31/20 Jossue Angel, is a 64-year-old male who presented to [facility] emergency room after a syncopal episode, at bedside stated that she found her unconscious, she called EMS, patient regained consciousness when EMS were in the house, he was able to stand up change his clothes and walk out to the front of the house, patient was noticed to be in ventricular tachycardia, he was started on IV amiodarone and was brought to the emergency room, patient was admitted to intensive care unit, pulmonary consultation and cardiology consultation were requested, patient regained normal sinus rhythm after he was started on IV amiodarone. Patient has a known history of cardiac arrhythmia, he has known history of paroxysmal atrial fibrillation he is followed by Dr. Lamb, he underwent cardiac ablation in the past, he was placed on oral amiodarone which he was taking 3 times weekly, he had a cardiac catheterization in 2006, he had cardiac ablation in 2016. Patient also has a known history of congestive heart failure, history of insulin-dependent diabetes mellitus, history of obstructive sleep apnea, history of hypertension, history of hyperlipidemia, and history of osteo arthritis. Patient was seen and examined in the intensive care unit, he is alert and oriented 3 in no apparent distress, he denies any symptoms at this time, there is no fever or chills no headache or dizziness no chest pain no shortness of breath no cough no nausea or vomiting no abdominal pain no diarrhea no blood in the stools, no burning with urination no frequency or urgency and no hematuria. Past Medical History Past Medical History: Atrial Fibrillation, Heart Failure, COPD, Diabetes Mellitus, Hyperlipidemia, Hypertension, Osteoarthritis (OA), Sleep Apnea/CPAP/BIPAP Additional Past Medical History / Comment(s): CELLULITIS TO RLE, cpap See Dr House H&P for cardiac history. History of Any Multi-Drug Resistant Organisms: None Reported Past Surgical History: Ablation, Appendectomy, Heart Catheterization, Tonsillectomy Additional Past Surgical History / Comment(s): "Heart cath done for ablation" Past Anesthesia/Blood Transfusion Reactions: No Reported Reaction Additional Past Anesthesia/Blood Transfusion Reaction / Comment(s): grumpy after surgery Past Psychological History: No Psychological Hx Reported Smoking Status: Former smoker Past Alcohol Use History: None Reported Additional Past Alcohol Use History / Comment(s): cigar once or twice a day Past Drug Use History: None Reported - Past Family History Mother Family Medical History: No Reported History Father Family Medical History: Myocardial Infarction (MS) Medications and Allergies Home Medications Medication Instructions Recorded Confirmed Type Atorvastatin [Lipitor] 40 mg PO QAM 10/18/16 03/30/20 History Insulin Glargine,Hum.rec.anlog 60 unit SQ BID 10/18/16 03/30/20 History [Lantus Solostar] metFORMIN HCL 1,000 mg PO AC-BID 10/18/16 03/30/20 History Apixaban [Eliquis] 5 mg PO BID #60 tab 10/24/16 03/30/20 Rx Aspirin EC [Ecotrin Low Dose] 81 mg PO BID 02/26/17 03/30/20 History Nitroglycerin Sl Tabs [Nitrostat] 0.4 mg SUBLINGUAL Q5M PRN tab 02/28/17 03/30/20 Rx Amiodarone [Cordarone] 100 mg PO MOWEFR 11/01/17 03/30/20 History Metoprolol Succinate [Toprol XL] 25 mg PO DAILY 11/01/17 03/30/20 History Acetaminophen Tab [Tylenol] 650 mg PO QAM PRN 03/30/20 03/30/20 History Ascorbic Acid [Vitamin C] 500 mg PO DAILY 03/30/20 03/30/20 History Furosemide [Lasix] 120 mg PO DAILY 03/30/20 03/30/20 History Insulin Lispro [humaLOG Kwikpen] 35 unit SQ AC-TID 03/30/20 03/30/20 History Insulin Lispro [humaLOG Kwikpen] See Protocol SQ AC-TID PRN 03/30/20 03/30/20 History Spironolactone [Aldactone] 50 mg PO DAILY 03/30/20 03/30/20 History amLODIPine [Norvasc] 5 mg PO DAILY 03/30/20 03/30/20 History lisinopriL [Zestril] 40 mg PO HS 03/30/20 03/30/20 History Allergies Allergy/AdvReac Type Severity Reaction Status Date / Time No Known Allergies Allergy Verified 03/30/20 22:17 Physical Exam Vitals: Vital Signs Temp Pulse Resp BP Pulse Ox 03/31/20 12:00 98.2 F 63 18 150/85 97 03/31/20 11:00 64 10 L 157/75 03/31/20 10:00 60 17 179/108 94 L 03/31/20 09:00 69 16 134/65 96 03/31/20 08:00 98.0 F 64 11 L 144/76 96 03/31/20 07:00 63 30 H 94 L 03/31/20 06:30 62 17 134/74 95 03/31/20 06:00 59 L 14 95 03/31/20 05:30 63 12 124/75 95 03/31/20 05:00 65 13 127/65 96 03/31/20 04:30 63 15 127/65 95 03/31/20 04:00 97.7 F 63 15 115/105 94 L 03/31/20 03:30 60 12 96 03/31/20 03:00 67 15 96 03/31/20 02:30 59 L 16 146/75 95 03/31/20 02:00 60 16 94 L 03/31/20 01:30 66 17 142/76 93 L 03/31/20 01:00 64 20 168/116 96 03/31/20 00:50 66 16 168/116 96 03/31/20 00:40 73 11 L 168/116 97 03/31/20 00:30 69 8 L 143/84 97 03/31/20 00:20 66 21 143/84 96 03/31/20 00:10 67 16 143/84 96 03/31/20 00:00 98.3 F 71 22 134/79 96 03/30/20 23:50 69 23 134/79 96 03/30/20 23:40 75 12 130/77 03/30/20 23:30 70 18 136/80 03/30/20 23:00 76 16 131/72 97 03/30/20 22:58 98.4 F 16 97 03/30/20 22:03 82 18 130/80 96 03/30/20 21:35 98.4 F 85 24 162/88 95 Intake and Output 03/30/20 03/31/20 03/31/20 22:59 06:59 14:59 Intake Total 250 Output Total 579 901 Balance -325 901 Intake: Oral 250 Output: Urine 575 900 Urine/Stool Mix 1 Other: Voiding Method Urinal Urinal # Voids 0 0 Weight 159.9 kg In general patient is alert and oriented 3 in no apparent distress HEENT head normocephalic and atraumatic Neck is supple no JVD no goiter no lymphadenopathy Chest exam reveals a few scattered rhonchi no wheezing Cardiac exam reveals regular heart sounds S1 and S2 no gallops no murmurs Abdomen is soft nontender no organomegaly with normal bowel sounds Extremity exam reveals minimal edema on the left, the right lower extremity is s ignificantly swollen, and is twice the size of the left lower extremity, patient stated that this is chronic for him and he was checked several times in the past and had no evidence of DVT. Neurology Exam reveals no gross focal deficit. Results CBC & Chem 7: 03/31/20 03:18 03/31/20 03:13 Labs: Abnormal Lab Results - Last 24 Hours (Table) 03/30/20 03/30/20 03/30/20 Range/Units 21:30 21:30 21:30 WBC 14.2 H (3.8-10.6) k/uL Plt Count 148 L (150-450) k/uL Neutrophils # 10.0 H (1.3-7.7) k/uL APTT 20.2 L (22.0-30.0) sec BUN (9-20) mg/dL Glucose (74-99) mg/dL POC Glucose (mg/dL) (75-99) mg/dL Troponin I (0.000-0.034) ng/mL TSH (0.465-4.680) mIU/L Urine Protein 2+ H (Negative) Urine Glucose (UA) Trace H (Negative) Urine Blood Trace H (Negative) Urine Mucus Rare H (None) /hpf 03/30/20 03/30/20 03/30/20 Range/Units 21:30 21:30 21:41 WBC (3.8-10.6) k/uL Plt Count (150-450) k/uL Neutrophils # (1.3-7.7) k/uL APTT (22.0-30.0) sec BUN 33 H (9-20) mg/dL Glucose 186 H (74-99) mg/dL POC Glucose (mg/dL) (75-99) mg/dL Troponin I 0.052 H* (0.000-0.034) ng/mL TSH 6.110 H (0.465-4.680) mIU/L Urine Protein (Negative) Urine Glucose (UA) (Negative) Urine Blood (Negative) Urine Mucus (None) /hpf 03/30/20 03/31/20 03/31/20 Range/Units 23:19 01:00 03:13 WBC (3.8-10.6) k/uL Plt Count (150-450) k/uL Neutrophils # (1.3-7.7) k/uL APTT (22.0-30.0) sec BUN 32 H (9-20) mg/dL Glucose 149 H (74-99) mg/dL POC Glucose (mg/dL) 175 H (75-99) mg/dL Troponin I 0.260 H* (0.000-0.034) ng/mL TSH (0.465-4.680) mIU/L Urine Protein (Negative) Urine Glucose (UA) (Negative) Urine Blood (Negative) Urine Mucus (None) /hpf 03/31/20 03/31/20 03/31/20 Range/Units 03:18 06:59 11:57 WBC 14.5 H (3.8-10.6) k/uL Plt Count (150-450) k/uL Neutrophils # 10.6 H (1.3-7.7) k/uL APTT (22.0-30.0) sec BUN (9-20) mg/dL Glucose (74-99) mg/dL POC Glucose (mg/dL) 125 H 235 H (75-99) mg/dL Troponin I (0.000-0.034) ng/mL TSH (0.465-4.680) mIU/L Urine Protein (Negative) Urine Glucose (UA) (Negative) Urine Blood (Negative) Urine Mucus (None) /hpf Thrombosis Risk Factor Assmnt - Choose All That Apply Each Factor Represents 1 point: Abnormal pulmonary function (COPD), Obesity (BMI >25) Each Risk Factor Represents 2 Points: Age 61-74 years Each Risk Factor Represents 3 Points: Family history of DVT/PE Thrombosis Risk Factor Assessment Total Risk Factor Score: 7 Thrombosis Risk Factor Assessment Level: High Risk Assessment and Plan Plan: 1. Ventricular tachycardia, patient converted to normal sinus rhythm on IV amiodarone drip 2. Syncopal episodes related to cardiac arrhythmia 3. History of paroxysmal atrial fibrillation 4. Insulin-dependent diabetes mellitus 5. Underlying history of obstructive sleep apnea maintained on CPAP 6. History of congestive heart failure. 7. Underlying history of hypertension 8. Underlying history of hyperlipidemia At this time patient is admitted to intensive care unit Pulmonary and cardiology consultation requested Echocardiogram ordered Patient is scheduled for cardiac catheterization tomorrow Patient will be given 1 dose of Lantus today he will be nothing by mouth post midnight for cardiac catheterization was also started on insulin to sliding scale Will follow closely prognosis is guarded
[2020-03-31 17:13] LABS: Glucose,Whole Blood 222 mg/dL (75-99)
[2020-03-31] MEDS: INSULIN ASPART (NovoLOG) 100 UNIT/ML VIAL SQ SCH ×2 (17:30→21:13)
[2020-03-31 20:56] LABS: Glucose,Whole Blood 187 mg/dL (75-99)
[2020-04-01 05:34] LABS: Basophils # (A) 0.1 k/uL (0-0.2); Basophils % (A) 0 %; Eosinophils # (A) 0.4 k/uL (0-0.7); Eosinophils % (A) 3 %; HCT 44.9 % (39.0-53.0); HGB 15.1 gm/dL (13.0-17.5); Lymphocytes # (A) 2.9 k/uL (1.0-4.8); Lymphocytes % (A) 21 %; MCH 29.6 pg (25.0-35.0); MCHC 33.5 g/dL (31.0-37.0); MCV 88.3 fL (80.0-100.0); Mean Platelet Volume 6.6; Monocytes # (A) 0.8 k/uL (0-1.0); Monocytes % (A) 6 %; Neutrophils # (A) 9.5 k/uL (1.3-7.7); Neutrophils % (A) 69 %; Platelet Count 301 k/uL (150-450); RBC 5.09 m/uL (4.30-5.90); RDW 14.6 % (11.5-15.5); WBC 13.8 k/uL (3.8-10.6)
[2020-04-01 05:43] LABS: African American GFR (CKD) >90 (>60 ml/min/1.73 sqM); Anion Gap 7 mmol/L; Blood Urea Nitrogen 22 mg/dL (9-20); Calcium 8.7 mg/dL (8.4-10.2); Carbon Dioxide 28 mmol/L (22-30); Chloride 104 mmol/L (98-107); Glucose 131 mg/dL (74-99); Non-African American GFR(CKD) 83 (>60 ml/min/1.73 sqM); Potassium 3.8 mmol/L (3.5-5.1); Sodium 139 mmol/L (137-145)
[2020-04-01 06:55] LABS: Glucose,Whole Blood 141 mg/dL (75-99)
[2020-04-01] MEDS ORDERED: Potassium Replacement Protocol 1 EACH MISC MISCELLANE PRN (07:16)
[2020-04-01] MEDS: INSULIN ASPART (NovoLOG) 100 UNIT/ML VIAL SQ SCH ×4 (07:21→21:42)
--- NOTE | 2020-04-01 07:33 | P.PN ---
Subjective Progress Note Date: 04/01/20 Principal diagnosis: Sustained ventricular tachycardia This is a 64-year-old gentleman with a past medical history significant for paroxysmal atrial fibrillation and status post ablation as well as multiple comorbid conditions including diabetes and hypertension and dyslipidemia and significant family history of CAD was admitted to the intensive. After he did have an episode of syncope at home and was found to be wide complex tachycardia consistent with ventricular tachycardia. The patient did not lose his pulse and did not receive CPR and the ventricular tachycardia was perfusing. It was terminated after he was started on amiodarone IV. The patient was seen today 04/01/2020. Currently he is on amiodarone by mouth. No more episode of V. tach and he is in normal sinus rhythm. The troponin came in to be slightly abnormal. The echo revealed mildly impaired left ventricular systolic function. After discussing the case with his primary general studies program chair Dr. Lamb we recommended to pursue with coronary angiogram to rule out any obstructive CAD. We are holding his oral anticoagulation since yesterday to perform the angiogram tomorrow. Objective - Vital Signs Vital signs: Vital Signs Temp 97.8 F 04/01/20 04:00 Pulse 62 04/01/20 07:00 Resp 10 L 04/01/20 07:00 BP 134/68 04/01/20 07:00 Pulse Ox 95 04/01/20 07:00 Intake & Output 03/31/20 04/01/20 04/01/20 18:59 06:59 18:59 Output Total 2701 625 0 Balance -2701 -625 0 Weight 157.2 kg Output: Urine 2700 625 0 Urine/Stool Mix 1 Other: Voiding Method Urinal Urinal # Voids 0 - Constitutional General appearance: Present: no acute distress - Respiratory Respiratory: bilateral: CTA - Cardiovascular Rhythm: regular Heart sounds: normal: S1, S2 - Labs CBC & Chem 7: 04/01/20 05:04 04/01/20 05:04 Labs: Abnormal Lab Results - Last 24 Hours (Table) 03/31/20 03/31/20 03/31/20 Range/Units 11:57 17:11 20:55 WBC (3.8-10.6) k/uL Neutrophils # (1.3-7.7) k/uL BUN (9-20) mg/dL Glucose (74-99) mg/dL POC Glucose (mg/dL) 235 H 222 H 187 H (75-99) mg/dL 04/01/20 04/01/20 04/01/20 Range/Units 05:04 05:04 06:54 WBC 13.8 H (3.8-10.6) k/uL Neutrophils # 9.5 H (1.3-7.7) k/uL BUN 22 H (9-20) mg/dL Glucose 131 H (74-99) mg/dL POC Glucose (mg/dL) 141 H (75-99) mg/dL Assessment and Plan Assessment: Assessment #1 ventricular tachycardia #2 an episode of syncope secondary to ventricular tachycardia #3 mildly abnormal cardiac enzymes #4 paroxysmal atrial fibrillation #5 multiple comorbid conditions Plan #1 continue the current medical regimen including oral amiodarone #2 continue holding oral anticoagulation #3 start the patient on IV heparin #4 consider coronary angiogram in the next 24 hours
[2020-04-01] MEDS: ASPIRIN 81 MG PO SCH ×2 (07:59→21:41)
[2020-04-01] MEDS: METOPROLOL SUCCINATE (ER) 25 MG TAB.ER.24H PO SCH (07:59)
[2020-04-01] MEDS: FUROSEMIDE 40 MG TAB PO SCH ×2 (07:59→16:58)
[2020-04-01] MEDS: ATORVASTATIN 40 MG TAB PO SCH (07:59)
[2020-04-01] MEDS ORDERED: POTASSIUM CHLORIDE ER 20 MEQ TAB.ER PO SCH (08:00)
--- NOTE | 2020-04-01 08:26 | XR ---
EXAMINATION TYPE: XR chest 1V portable DATE OF EXAM: 04/01/2020, 03/30/2020 COMPARISON: 03/31/2020 INDICATION: CHF, pneumonia TECHNIQUE: Single frontal view of the chest is obtained. FINDINGS: The heart size is normal. The pulmonary vasculature is normal. The lungs are clear. IMPRESSION: 1. Right lower lobe infiltrate appears resolved. Follow-up exams can be performed as clinically indic ated
--- NOTE | 2020-04-01 11:01 | P.PN ---
Subjective Progress Note Date: 04/01/20 Jossue Angel, is a 64-year-old male who presented to [facility] emergency room after a syncopal episode, at bedside stated that she found her unconscious, she called EMS, patient regained consciousness when EMS were in the house, he was able to stand up change his clothes and walk out to the front of the house, patient was noticed to be in ventricular tachycardia, he was started on IV amiodarone and was brought to the emergency room, patient was admitted to intensive care unit, pulmonary consultation and cardiology consultation were requested, patient regained normal sinus rhythm after he was started on IV amiodarone. Patient has a known history of cardiac arrhythmia, he has known history of paroxysmal atrial fibrillation he is followed by Dr. Lamb, he underwent cardiac ablation in the past, he was placed on oral amiodarone which he was taking 3 times weekly, he had a cardiac catheterization in 2006, he had cardiac ablation in 2016. Patient also has a known history of congestive heart failure, history of insulin-dependent diabetes mellitus, history of obstructive sleep apnea, history of hypertension, history of hyperlipidemia, and history of osteoarthritis. Patient was seen and examined in the intensive care unit, he is alert and oriented 3 in no apparent distress, he denies any symptoms at this time, there is no fever or chills no headache or dizziness no chest pain no shortness of breath no cough no nausea or vomiting no abdominal pain no diarrhea no blood in the stools, no burning with urination no frequency or urgency and no hematuria. On 04/01/2020 patient was seen and examined in the ICU he is alert and oriented 3 in no apparent distress there is no fever or chills no headache or dizziness no chest pain no shortness of breath no cough no nausea or vomiting no abdominal pain no diarrhea no burning with urination no frequency or urgency and no hematuria. Patient is scheduled for cardiac catheterization tomorrow. Patient is complaining of more swelling and erythema in the right lower extremity then usual there is a small scabbed wound in the right pretibial area at this time will start IV antibiotics cefazolin check right lower extremity Doppler and consult infectious disease. Objective - Vital Signs Vital signs: Vital Signs Temp 98.2 F 04/01/20 08:00 Pulse 65 04/01/20 10:00 Resp 18 04/01/20 10:00 BP 149/68 09/27/20 08:00 Pulse Ox 94 L 04/01/20 08:00 Intake & Output 03/31/20 04/01/20 04/01/20 18:59 06:59 18:59 Output Total 2701 625 500 Balance -2701 -625 -500 Weight 157.2 kg Output: Urine 2700 625 500 Urine/Stool Mix 1 Other: Voiding Method Urinal Urinal # Voids 0 200 - Exam In general patient is alert and oriented 3 in no apparent distress HEENT head normocephalic and atraumatic Neck is supple no JVD no goiter no lymphadenopathy Chest exam reveals a few scattered rhonchi no wheezing Cardiac exam reveals regular heart sounds S1 and S2 no gallops no murmurs Abdomen is soft nontender no organomegaly with normal bowel sounds Extremity exam reveals minimal edema on the left, the right lower extremity is significantly swollen, and is twice the size of the left lower extremity, patient stated that this is chronic for him and he was checked several times in the past and had no evidence of DVT. Neurology Exam reveals no gross focal deficit. - Labs CBC & Chem 7: 04/01/20 05:04 04/01/20 05:04 Labs: Abnormal Lab Results - Last 24 Hours (Table) 03/31/20 03/31/20 03/31/20 Range/Units 11:57 17:11 20:55 WBC (3.8-10.6) k/uL Neutrophils # (1.3-7.7) k/uL BUN (9-20) mg/dL Glucose (74-99) mg/dL POC Glucose (mg/dL) 235 H 222 H 187 H (75-99) mg/dL 04/01/20 04/01/20 04/01/20 Range/Units 05:04 05:04 06:54 WBC 13.8 H (3.8-10.6) k/uL Neutrophils # 9.5 H (1.3-7.7) k/uL BUN 22 H (9-20) mg/dL Glucose 131 H (74-99) mg/dL POC Glucose (mg/dL) 141 H (75-99) mg/dL Assessment and Plan Plan: 1. Ventricular tachycardia, patient converted to normal sinus rhythm on IV amiodarone drip 2. Syncopal episodes related to cardiac arrhythmia 3. History of paroxysmal atrial fibrillation 4. Insulin-dependent diabetes mellitus 5. Underlying history of obstructive sleep apnea maintained on CPAP 6. History of congestive heart failure. 7. Underlying history of hypertension 8. Underlying history of hyperlipidemia At this time patient is admitted to intensive care unit Pulmonary and cardiology consultation requested Echocardiogram ordered Patient is scheduled for cardiac catheterization tomorrow Patient will be given 1 dose of Lantus today he will be nothing by mouth post midnight for cardiac catheterization was also started on insulin to sliding scale Will follow closely prognosis is guarded
[2020-04-01 11:18] LABS: Glucose,Whole Blood 243 mg/dL (75-99)
--- NOTE | 2020-04-01 14:10 | US ---
EXAMINATION TYPE: US venous doppler duplex LE RT DATE OF EXAM: 04/01/2020 2:00 PM COMPARISON: US 10/19/2016 CLINICAL HISTORY: right leg edema. SIDE PERFORMED: Right TECHNIQUE: The lower extremity deep venous system is examined utilizing real time linear array sonog bella with graded compression, doppler sonography and color-flow sonography. VESSELS IMAGED: External Iliac Vein (EIV) Common Femoral Vein Deep Femoral Vein Greater Saphenous Vein * Femoral Vein Popliteal Vein Small Saphenous Vein * Proximal Calf Veins (* superficial vessels) Right Leg: Negative for DVT IMPRESSION: 1. Right lower extremity ultrasound negative for deep venous thrombosis
--- NOTE | 2020-04-01 14:31 | P.PN ---
Subjective Progress Note Date: 04/01/20 Principal diagnosis: Nonsustained ventricular tachycardia This is a 64-year-old white male with history of paroxysmal atrial fibrillation, status post ablation, patient is maintained on anticoagulation therapy. He normally sees Dr. Phelps on a regular basis. Patient is also known to have a strong family history of premature coronary artery disease, father at age 55 from acute myocardial infarction. According to the patient his called EMS because she heard a noise, and she found her collapsed on the floor. Patient remembers that he passed out, but couldn't give any details. Upon EMS arrival, patient was noted to be in ventricular tachycardia, and he did have a pulse. Patient was placed on amiodarone, and converted to a normal sinus rhythm in the emergency room. Considering his presentation of ventricular tachycardia, patient was admitted to the ICU, and I was asked to see him on consultation. Presently the patient is in normal sinus rhythm, asymptomatic, denies any chest pain, denies any cough, no wheezing, no shortness of breath. Denies any palpitations. Denies any neurological symptoms. Patient states that he had previous cardiac catheterization back in 2006 done at [facility], and no cardiac catheterization since then. But he did have ablation supposedly in [address] Phelps. Patient was reevaluated today on 04/01/20, remains in the ICU, basically about the same, patient is asymptomatic, uses his CPAP at night. No further episodes of ventricular tachycardia documented in the last 24 hours. Patient is scheduled to undergo cardiac catheterization tomorrow. CBC is relatively normal electrocerebral normal renal profile is normal. Objective - Vital Signs Vital signs: Vital Signs Temp 98.2 F 04/01/20 08:00 Pulse 76 04/01/20 11:00 Resp 18 04/01/20 11:00 BP 149/68 04/01/20 08:00 Pulse Ox 94 L 04/01/20 08:00 Intake & Output 03/31/20 04/01/20 04/01/20 18:59 06:59 18:59 Output Total 7682 746 278 Balance -2708 -465 -727 Weight 157.2 kg Output: Urine 2709 227 700 Urine/Stool Mix 1 Other: Voiding Method Urinal Urinal # Voids 0 200 # Bowel Movements 1 - Exam Physical Exam: Revealed a 64-year-old white male pleasant in no distress. Head: Atraumatic, normocephalic. HEENT:[Neck is supple.] [No neck masses.] [No thyromegaly.] [No JVD.] Chest: [Clear throughout, no crackles, no rhonchi, no wheezes.] Cardiac Exam: [Normal S1 and S2, no S3 gallop, no murmur.] Abdomen: [Soft, nontender, no megaly, no rebound, no guarding, normal bowel so unds.] Extremities: [No clubbing, chronic venous stasis changes noted in both lower extremities. Neurological Exam: [No focal neurologic deficit.] Alert and oriented 3. Psychiatric: Normal mood, affect and normal mental status examination. Skin: No rashes. - Labs CBC & Chem 7: 04/01/20 05:04 04/01/20 05:04 Labs: Abnormal Lab Results - Last 24 Hours (Table) 03/31/20 03/31/20 04/01/20 Range/Units 17:11 20:55 05:04 WBC 13.8 H (3.8-10.6) k/uL Neutrophils # 9.5 H (1.3-7.7) k/uL BUN (9-20) mg/dL Glucose (74-99) mg/dL POC Glucose (mg/dL) 222 H 187 H (75-99) mg/dL 04/01/20 04/01/20 04/01/20 Range/Units 05:04 06:54 11:16 WBC (3.8-10.6) k/uL Neutrophils # (1.3-7.7) k/uL BUN 22 H (9-20) mg/dL Glucose 131 H (74-99) mg/dL POC Glucose (mg/dL) 141 H 243 H (75-99) mg/dL Assessment and Plan Assessment: Impression: Ventricular tachycardia, responded to amiodarone drip. Syncope secondary to ventricular tachycardia. History of paroxysmal atrial fibrillation. Family history of premature coronary artery disease. Type 2 diabetes. Obstructive sleep apnea syndrome on CPAP. Dyslipidemia. History of bacteremia History of pulmonary edema noted on previous admissions. Recommendation: Continue amiodarone Continue home meds and continue Lasix. Continue insulin. Continue statins. Agree with cardiac catheterization tomorrow. We will continue to follow while in the ICU Time with Patient: Less than 30
[2020-04-01 16:56] LABS: Glucose,Whole Blood 184 mg/dL (75-99)
[2020-04-01 21:37] LABS: Glucose,Whole Blood 254 mg/dL (75-99)
--- NOTE | 2020-04-01 22:31 | P.CONS ---
History of Present Illness - Reason for Consult Consult date: 04/01/20 Right lower extremity cellulitis Requesting physician: Jose Jaramillo - Chief Complaint Collapsed at home x 1 day - History of Present Illness Patient is a 64 of male was brought into the ER by EMS on 03/30/2020 after apparently the patient collapsed at home, patient heard a noise and noticed the to be on "unresponsive EMS was called on arrival of EMS patient was noticed to be ventricular tachycardia subsequent the patient has been rash to the ER patient has been started on amiodarone and subsequently patient converted to sinus rhythm, patient has been admitted to the ICU and is scheduled for cardiac cath tomorrow, patient also have a chronic swelling of his right lower extremity this patient noticed to have elevated white count and concern for possible cellulitis the patient was started on cefazolin infectious disease was consulted for further management of antibiotic therapy, patient time I will patient denies having any fever or any chills, denies having any chest pain or shortness of cough no nausea no vomiting, no abdominal pain, mention chronic swelling to lower extremity no significant pain to the leg but erythema and warmth no open wound or any drainage, patient did have elevated white count but no fever, chest x-ray with resolved right lower lobe infiltrate. Ultrasound was negative for DVT Review of Systems Positive point has been mentioned in the HPI rest of the systems are negative Past Medical History Past Medical History: Atrial Fibrillation, Heart Failure, COPD, Diabetes Mellitus, Hyperlipidemia, Hypertension, Osteoarthritis (OA), Sleep Apnea /CPAP/BIPAP Additional Past Medical History / Comment(s): CELLULITIS TO RLE, cpap See Dr House H&P for cardiac history. History of Any Multi-Drug Resistant Organisms: None Reported Past Surgical History: Ablation, Appendectomy, Heart Catheterization, Tonsillectomy Additional Past Surgical History / Comment(s): "Heart cath done for ablation" Past Anesthesia/Blood Transfusion Reactions: No Reported Reaction Additional Past Anesthesia/Blood Transfusion Reaction / Comm: grumpy after surgery Past Psychological History: No Psychological Hx Reported Smoking Status: Former smoker Past Alcohol Use History: None Reported Additional Past Alcohol Use History / Comment(s): cigar once or twice a day Past Drug Use History: None Reported - Past Family History Mother Family Medical History: No Reported History Father Family Medical History: Myocardial Infarction ([place]) Medications and Allergies Home Medications Medication Instructions Recorded Confirmed Type Atorvastatin [Lipitor] 40 mg PO QAM 10/18/16 03/30/20 History Insulin Glargine,Hum.rec.anlog 60 unit SQ BID 10/18/16 03/30/20 History [Lantus Solostar] metFORMIN HCL 1,000 mg PO AC-BID 10/18/16 03/30/20 History Apixaban [Eliquis] 5 mg PO BID #60 tab 10/24/16 03/30/20 Rx Aspirin EC [Ecotrin Low Dose] 81 mg PO BID 02/26/17 03/30/20 History Nitroglycerin Sl Tabs [Nitrostat] 0.4 mg SUBLINGUAL Q5M PRN tab 02/28/17 03/30/20 Rx Amiodarone [Cordarone] 100 mg PO MOWEFR 11/01/17 03/30/20 History Metoprolol Succinate [Toprol XL] 25 mg PO DAILY 11/01/17 03/30/20 History Acetaminophen Tab [Tylenol] 650 mg PO QAM PRN 03/30/20 03/30/20 History Ascorbic Acid [Vitamin C] 500 mg PO DAILY 03/30/20 03/30/20 History Furosemide [Lasix] 120 mg PO DAILY 03/30/20 03/30/20 History Insulin Lispro [humaLOG Kwikpen] 35 unit SQ AC-TID 03/30/20 03/30/20 History Insulin Lispro [humaLOG Kwikpen] See Protocol SQ AC-TID PRN 03/30/20 03/30/20 History Spironolactone [Aldactone] 50 mg PO DAILY 03/30/20 03/30/20 History amLODIPine [Norvasc] 5 mg PO DAILY 03/30/20 03/30/20 History lisinopriL [Zestril] 40 mg PO HS 03/30/20 03/30/20 History Allergies Allergy/AdvReac Type Severity Reaction Status Date / Time No Known Allergies Allergy Verified 03/30/20 22:17 Physical Exam Vitals: Vital Signs Temp Pulse Resp BP Pulse Ox 04/01/20 18:00 60 23 04/01/20 17:00 75 23 04/01/20 16:00 98.2 F 62 19 156/86 95 04/01/20 15:00 79 13 156/86 04/01/20 14:00 61 16 04/01/20 13:00 64 16 04/01/20 12:00 65 15 04/01/20 11:00 76 18 04/01/20 10:00 65 18 04/01/20 09:00 74 34 H 04/01/20 08:00 98.2 F 70 14 149/68 94 L 04/01/20 07:00 62 10 L 134/68 95 04/01/20 06:00 82 21 142/80 96 04/01/20 05:00 62 13 149/81 95 04/01/20 04:00 97.8 F 61 10 L 151/86 95 04/01/20 03:00 63 12 154/85 95 04/01/20 02:00 64 15 139/83 96 04/01/20 01:00 61 8 L 141/90 95 04/01/20 00:00 97.8 F 61 16 141/90 95 03/31/20 23:00 62 17 174/92 93 L 03/31/20 22:00 63 14 171/95 94 L 03/31/20 21:00 66 35 H 171/95 95 03/31/20 20:00 98.1 F 65 20 154/90 95 Intake and Output 04/01/20 04/01/20 04/01/20 06:59 14:59 22:59 Intake Total 790 Output Total 795 536 8086 Balance -350 -950 -210 Intake: Intake, IV Titration 50 Amount ceFAZolin 1,000 mg In 50 Sodium Chloride 0.9% 50 ml @ 100 mls/hr IVPB Q8H [facility] Rx#:[id number] Oral 740 Output: Urine 495 783 4820 Other: # Voids 200 # Bowel Movements 1 Weight 157.2 kg GENERAL DESCRIPTION: An elderly male lying in bed, no distress. No tachypnea or accessory muscle of respiration use. HEENT: Shows Pallor , no scleral icterus. Oral mucous membrane is dry. No pharyngeal erythema or thrush NECK: Trachea central, no thyromegaly. LUNGS: Unlabored breathing. Clear to auscultation anteriorly. No wheeze or crackle. HEART: S1, S2, regular rate and rhythm. No loud murmur ABDOMEN: Soft, no tenderness , guarding or rigidity, no organomegaly EXTREMITIES: Right lower extremity swelling minimal warmth no open wound or any drainage. SKIN: No rash, no masses palpable. NEUROLOGICAL: The patient is awake, alert, oriented x3, mood and affect normal. Results CBC & Chem 7: 04/01/20 05:04 04/01/20 05:04 Labs: Abnormal Lab Results - Last 24 Hours (Table) 03/31/20 04/01/20 04/01/20 Range/Units 20:55 05:04 05:04 WBC 13.8 H (3.8-10.6) k/uL Neutrophils # 9.5 H (1.3-7.7) k/uL BUN 22 H (9-20) mg/dL Glucose 131 H (74-99) mg/dL POC Glucose (mg/dL) 187 H (75-99) mg/dL 04/01/20 04/01/20 04/01/20 Range/Units 06:54 11:16 16:55 WBC (3.8-10.6) k/uL Neutrophils # (1.3-7.7) k/uL BUN (9-20) mg/dL Glucose (74-99) mg/dL POC Glucose (mg/dL) 141 H 243 H 184 H (75-99) mg/dL Assessment and Plan Assessment: 1- patient with a chronic right lower extremity swelling this patient ultrasound has been negative for DVT, patient did have mildly elevated white count with a possible component of cellulitis and no other obvious focus of infection chest x-ray was clear of any pneumonia abdominal soft on palpation and no urinary symptoms (1) Cellulitis of right leg Current Visit: Yes Status: Acute Code(s): L03.115 - CELLULITIS OF RIGHT LOWER LIMB SNOMED Code(s): 054957772 Plan: 1- we will increase cefazolin 2 g every 8 hours 2-we'll monitor his white count and clinical course closely We will follow on clinical condition and cultures to further adjust medication if needed Thank you for this consultation will follow this patient with you Time with Patient: Greater than 30
[2020-04-02 04:27] LABS: Basophils # (A) 0.1 k/uL (0-0.2); Basophils % (A) 1 %; Eosinophils # (A) 0.5 k/uL (0-0.7); Eosinophils % (A) 4 %; HCT 46.8 % (39.0-53.0); HGB 14.8 gm/dL (13.0-17.5); Lymphocytes # (A) 2.5 k/uL (1.0-4.8); Lymphocytes % (A) 19 %; MCH 27.9 pg (25.0-35.0); MCHC 31.7 g/dL (31.0-37.0); Mean Platelet Volume 6.5; Monocytes # (A) 0.8 k/uL (0-1.0); Monocytes % (A) 6 %; Neutrophils # (A) 9.2 k/uL (1.3-7.7); Neutrophils % (A) 70 %; Platelet Count 302 k/uL (150-450); RBC 5.32 m/uL (4.30-5.90); WBC 13.2 k/uL (3.8-10.6)
[2020-04-02 04:54] LABS: African American GFR (CKD) >90 (>60 ml/min/1.73 sqM); Anion Gap 5 mmol/L; Blood Urea Nitrogen 22 mg/dL (9-20); Calcium 8.8 mg/dL (8.4-10.2); Carbon Dioxide 31 mmol/L (22-30); Chloride 102 mmol/L (98-107); Glucose 171 mg/dL (74-99); Non-African American GFR(CKD) 83 (>60 ml/min/1.73 sqM); Potassium 3.8 mmol/L (3.5-5.1); Sodium 138 mmol/L (137-145)
[2020-04-02 06:54] LABS: Glucose,Whole Blood 189 mg/dL (75-99)
[2020-04-02] MEDS: INSULIN ASPART (NovoLOG) 100 UNIT/ML VIAL SQ SCH ×4 (07:02→20:17)
[2020-04-02] MEDS ORDERED: ALPRAZolam 0.5 MG TAB PO PRN (07:44)
[2020-04-02] MEDS ORDERED: NITROGLYCERIN SL TABS 0.4 MG TAB SUBLINGUAL PRN (07:44)
[2020-04-02] MEDS ORDERED: SODIUM CHLORIDE 0.9% 1,000 ML in EMPTY BAG 1 BAG IV ONE (07:44)
[2020-04-02] MEDS ORDERED: ASPIRIN 325 MG TAB PO STA (07:44)
[2020-04-02] MEDS ORDERED: ALPRAZolam 0.25 MG TAB PO PRN (07:44)
[2020-04-02] MEDS ORDERED: ATORVASTATIN 80 MG TAB PO STA (07:44)
[2020-04-02] MEDS: ASPIRIN 81 MG PO SCH ×2 (08:39→20:03)
[2020-04-02] MEDS: ATORVASTATIN 40 MG TAB PO SCH (08:40)
[2020-04-02] MEDS ORDERED: AMIODARONE 100 MG TAB PO SCH (09:00)
[2020-04-02] MEDS ORDERED: METOPROLOL SUCCINATE (ER) 25 MG TAB.ER.24H PO SCH (09:00)
[2020-04-02] MEDS: FUROSEMIDE 40 MG TAB PO SCH ×2 (09:03→17:01)
--- NOTE | 2020-04-02 10:26 | P.PN ---
Subjective Progress Note Date: 04/02/20 Principal diagnosis: Nonsustained ventricular tachycardia This is a 64-year-old white male with history of paroxysmal atrial fibrillation, status post ablation, patient is maintained on anticoagulation therapy. He normally sees Dr. Phelps on a regular basis. Patient is also known to have a strong family history of premature coronary artery disease, father at age 55 from acute myocardial infarction. According to the patient his called EMS because she heard a noise, and she found her collapsed on the floor. Patient remembers that he passed out, but couldn't give any details. Upon EMS arrival, patient was noted to be in ventricular tachycardia, and he did have a pulse. Patient was placed on amiodarone, and converted to a normal sinus rhythm in the emergency room. Considering his presentation of ventricular tachycardia, patient was admitted to the ICU, and I was asked to see him on consultation. Presently the patient is in normal sinus rhythm, asymptomatic, denies any chest pain, denies any cough, no wheezing, no shortness of breath. Denies any palpitations. Denies any neurological symptoms. Patient states that he had previous cardiac catheterization back in 2006 done at [facility], and no cardiac catheterization since then. But he did have ablation supposedly in [address] Pehlps. Patient was reevaluated today on 04/01/20, remains in the ICU, basically about the same, patient is asymptomatic, uses his CPAP at night. No further episodes of ventricular tachycardia documented in the last 24 hours. Patient is scheduled to undergo cardiac catheterization tomorrow. CBC is relatively normal electrocerebral normal renal profile is normal. On 04/02/2020 patient seen in follow-up in the intensive care unit, he is awake and alert, in no acute distress, he sitting up in the recliner, in no acute distress, denies any chest pain, denies any shortness of breath, lung sounds are clear, patient has chronic swelling in his right lower extremity chronic venous stasis changes which she states due to venous insufficiency in his right lower extremity, no warmth, no redness, no swelling in the left lower extremity, patient is sinus mechanism on the monitor. Rate is 68. Lung signs have been stable, no acute events overnight, the patient's Eliquis is on hold. She remains on oral amiodarone, and cardiology is following and plan on cardiac catheterization today. Right lower extremity ultrasound was negative for DVT. She continues on oral Lasix, and yesterday's chest x-ray shows clear lungs Objective - Vital Signs Vital signs: Vital Signs Temp 98.8 F 04/02/20 08:00 Pulse 64 04/02/20 08:00 Resp 19 04/02/20 08:00 BP 152/90 04/02/20 08:00 Pulse Ox 96 04/02/20 08:00 Intake & Output 04/01/20 04/02/20 04/02/20 18:59 06:59 18:59 Intake Total 790 Output Total 1950 525 0 Balance -1160 -525 0 Weight 154.5 kg Intake: Intake, IV Titration 50 Amount ceFAZolin 1,000 mg In 50 Sodium Chloride 0.9% 50 ml @ 100 mls/hr IVPB Q8H [facility] Rx#:[id number] Oral 740 Output: Urine 1950 525 0 Other: Voiding Method Urinal # Voids 200 # Bowel Movements 1 - Exam GENERAL EXAM: Alert, very pleasant, 64-year-old white male, currently on room air, with a pulse ox of 96% comfortable in no apparent distress. HEAD: Normocephalic/atraumatic. EYES: Normal reaction of pupils, equal size. Conjunctiva pink, sclera white. NOSE: Clear with pink turbinates. THROAT: No erythema or exudates. NECK: No masses, no JVD, no thyroid enlargement, no adenopathy. CHEST: No chest wall deformity. Symmetrical expansion. LUNGS: Equal air entry with no crackles, wheeze, rhonchi or dullness. CVS: Regular rate and rhythm, normal S1 and S2, no gallops, no murmurs, no rubs ABDOMEN: Soft, nontender. No hepatosplenomegaly, normal bowel sounds, no guarding or rigidity. EXTREMITIES: No clubbing, chronic right lower extremity edema related to venous insufficiency, with the lower extremity Doppler negative for DVT, with the jolene ous stasis changes to the skin no cyanosis, 2+ pulses and upper and lower extremities. MUSCULOSKELETAL: Muscle strength and tone normal. SPINE: No scoliosis or deformity SKIN: No rashes CENTRAL NERVOUS SYSTEM: Alert and oriented -3. No focal deficits, tone is normal in all 4 extremities. PSYCHIATRIC: Alert and oriented -3. Appropriate affect. Intact judgment and insight. - Labs CBC & Chem 7: 04/02/20 04:13 04/02/20 04:13 Labs: Abnormal Lab Results - Last 24 Hours (Table) 04/01/20 04/01/20 04/01/20 Range/Units 11:16 16:55 21:35 WBC (3.8-10.6) k/uL Neutrophils # (1.3-7.7) k/uL Carbon Dioxide (22-30) mmol/L BUN (9-20) mg/dL Glucose (74-99) mg/dL POC Glucose (mg/dL) 243 H 184 H 254 H (75-99) mg/dL 04/02/20 04/02/20 04/02/20 Range/Units 04:13 04:13 06:52 WBC 13.2 H (3.8-10.6) k/uL Neutrophils # 9.2 H (1.3-7.7) k/uL Carbon Dioxide 31 H (22-30) mmol/L BUN 22 H (9-20) mg/dL Glucose 171 H (74-99) mg/dL POC Glucose (mg/dL) 189 H (75-99) mg/dL Assessment and Plan Plan: Assessment: #1. Ventricular tachycardia, nonsustained, responded to amiodarone drip, patient is currently in sinus mechanism #2. Elevated troponins, cardiology is following #3. Episode of syncope secondary to ventricular tachycardia #4. History of paroxysmal atrial fibrillation #5. Morbid obesity #6. Chronic swelling in the right lower extremity related to venous insufficiency, with the lower to mid Doppler negative for DVT #7. Type 2 diabetes mellitus #8. MS history of premature coronary artery disease #9. Obstructive sleep apnea syndrome on CPAP therapy Plan: Continue current medical treatment, patient has had no acute events overnight, vital signs have been stable, he is in sinus mechanism with a controlled rate, no recurrence of ventricular tachycardia or any other arrhythmia. No complaints of shortness of breath or chest pain, cardiology is planning on cardiac cat heterization today. Continue oral Lasix, and his yesterday chest x-ray showed clear lungs. We'll continue to follow, possible transfer out of intensive care unit today to stepdown unit I performed a history & physical examination of the patient and discussed their management with my nurse practitioner, Madalyn Ohara. I reviewed the nurse practitioner's note and agree with the documented findings and plan of care. Lung sounds are positive for diminished breath sounds. The findings and the i mpression was discussed with the patient. I attest to the documentation by the nurse practitioner. Time with Patient: Less than 30
--- NOTE | 2020-04-02 10:34 | CDI ---
Documentation Clarification Form Date: 04/02/2020 10:21:43 AM From: Catrachita Sinha CCS, CCDS Admit Date: 03/30/2020 10:12:00 PM Patient Name: Jossue Angel Visit Number: [id number] Discharge Date: ATTENTION: The Clinical Documentation Specialists (CDI) and [facility] Coding Staff appreciate your assistance in clarifying documentation. Please respond to the clarification below the line at the bottom and electronically sign. The CDI & [facility] Coding staff will review the response and follow-up if needed. Please note: Queries are made part of the Legal Health Record. If you have any questions, please contact the author of this message via ITS. Dr. Nawaf Gomez: CHF is documented in the 03/30 ED note, the 03/31 History & Physical and the 03/31 Cardiology & Pulmonary/Critical Care Consults without further specificity. History/Risk Factors: CHF, COPD, DM, Hyperlipidemia, Hypertension, OA, Sleep apnea, former smoker. Home Medications: Lipitor, Insulin sq, Metformin, ASA, Cordarone, Toprol, Vit C, Lasix, Aldactone, Norvasc, Zestril, Eliquis Clinical Indicators: Patient presented to the ED via EMS after a syncopal episode with LOC, found to be in ventricular tachycardia, treated with IV Amiodarone & transported to the ED. VS 03/30: T 98.4, P 85, R 24, BP 162/88, PO 95 2Lnc BNP: Not done this admission. Troponins: 0/052^^, 0.260^^. Echocardiogram Results 03/31: Moderate LVH, Left ventricular systolic function mild-moderately impaired w/EF 40-45%, Left atrium moderately dilated, Mild aortic stenosis, Mild MR/TR. No pericardial effusion. Chest X Ray 03/30: Right lower lobe infiltrate, correlate for pneumonia, Cardiomegaly. Chest X Ray 03/31: Resolving/resolved medial right lower lung infiltrate. No opacity, pleural effusion or pneumothorax. Chest X Ray 04/01: Heart size is normal, pulmonary vasculature is normal. Right lower lobe infiltrate resolved. Consult: Pulmonary/Critical Care for ICU management. Cardiology: V tach, pending heart catheterization. ID: Chronic right lower extremity swelling with increased swelling & redness, treat for RLE cellulitis. Treatment: Admit to ICU, IV Amiodarone, IV Rocephin. 04/02: PO Lasix 40 mg BID. In your professional opinion, can you please clarify the acuity and type of CHF if known? Systolic Heart Failure: o Acute ox Chronic o Acute on Chronic Other heart failure or condition, please specify: Unable to Determine (Last Revision: October 2017) MTDD
[2020-04-02 12:07] LABS: Glucose,Whole Blood 190 mg/dL (75-99)
[2020-04-02] MEDS ORDERED: VERAPAMIL 2.5 MG/ML 2 ML AMP ONE (13:21)
[2020-04-02] MEDS ORDERED: LIDOCAINE 1% INJ 10MG/ML (20 ML MDV) ONE (13:21)
[2020-04-02] MEDS ORDERED: HEPARIN SODIUM 1,000 UN/ML (10ML VL) ONE (13:21)
[2020-04-02] MEDS ORDERED: LIDOCAINE 1% INJ 10MG/ML (20 ML MDV) SQ ONE (13:30)
[2020-04-02] MEDS ORDERED: MIDAZOLAM 2 MG/2 ML VIAL IVP ONE (13:30)
[2020-04-02] MEDS ORDERED: VERAPAMIL SYRINGE (5 MG/10 ML) INTRAARTER ONE (13:31)
[2020-04-02] MEDS ORDERED: HEPARIN SODIUM 1,000 UN/ML (10ML VL) IV ONE (13:33)
[2020-04-02] MEDS ORDERED: IV FLUID CONTINUATION 1,000 ML IV ONE (13:34)
[2020-04-02] MEDS ORDERED: MIDAZOLAM 2 MG/2 ML VIAL IV ONE (14:00)
[2020-04-02] MEDS ORDERED: IOPAMIDOL-370 125ML BTL INJ ONE (14:02)
[2020-04-02] MEDS ORDERED: PRASUGREL 10 MG TAB ONE (14:06)
[2020-04-02] MEDS ORDERED: PRASUGREL 10 MG TAB PO ONE (14:09)
[2020-04-02] MEDS ORDERED: IOPAMIDOL-370 100ML BTL INJ ONE (14:11)
[2020-04-02] MEDS ORDERED: SODIUM CHLORIDE 0.9% 1,000 ML IV SCH (14:30)
[2020-04-02 17:13] LABS: Glucose,Whole Blood 213 mg/dL (75-99)
--- NOTE | 2020-04-02 18:13 | P.PN ---
Subjective Progress Note Date: 04/02/20 Jossue Angel, is a 64-year-old male who presented to [facility] emergency room after a syncopal episode, at bedside stated that she found her unconscious, she called EMS, patient regained consciousness when EMS were in the house, he was able to stand up change his clothes and walk out to the front of the house, patient was noticed to be in ventricular tachycardia, he was started on IV amiodarone and was brought to the emergency room, patient was admitted to intensive care unit, pulmonary consultation and cardiology consultation were requested, patient regained normal sinus rhythm after he was started on IV amiodarone. Patient has a known history of cardiac arrhythmia, he has known history of paroxysmal atrial fibrillation he is followed by Dr. Lamb, he underwent cardiac ablation in the past, he was placed on oral amiodarone which he was taking 3 times weekly, he had a cardiac catheterization in 2006, he had cardiac ablation in 2016. Patient also has a known history of congestive heart failure, history of insulin-dependent diabetes mellitus, history of obstructive sleep apnea, history of hypertension, history of hyperlipidemia, and history of osteoarthritis. Patient was seen and examined in the intensive care unit, he is alert and oriented 3 in no apparent distress, he denies any symptoms at this time, there is no fever or chills no headache or dizziness no chest pain no shortness of breath no cough no nausea or vomiting no abdominal pain no diarrhea no blood in the stools, no burning with urination no frequency or urgency and no hematuria. On 04/01/2020 patient was seen and examined in the ICU he is alert and oriented 3 in no apparent distress there is no fever or chills no headache or dizziness no chest pain no shortness of breath no cough no nausea or vomiting no abdominal pain no diarrhea no burning with urination no frequency or urgency and no hematuria. Patient is scheduled for cardiac catheterization tomorrow. Patient is complaining of more swelling and erythema in the right lower extremity then usual there is a small scabbed wound in the right pretibial area at this time will start IV antibiotics cefazolin check right lower extremity Doppler and consult infectious disease. On 04/02/2020 patient was seen and examined in the ICU he is alert and oriented 3 in no apparent distress there is no fever or chills no headache or dizziness no chest pain no shortness of breath no cough no nausea or vomiting no abdominal pain no diarrhea no blood in the stools no burning with urination no frequency or urgency and no hematuria, he underwent cardiac catheterization today with angioplasty and stent placement Objective - Vital Signs Vital signs: Vital Signs Temp 98.9 F 04/02/20 12:00 Pulse 63 04/02/20 16:30 Resp 23 04/02/20 16:30 BP 150/73 04/02/20 16:30 Pulse Ox 96 04/02/20 16:30 Intake & Output 04/01/20 04/02/20 04/02/20 18:59 06:59 18:59 Intake Total 790 450 Output Total 1950 525 600 Balance -1160 -525 -150 Weight 154.5 kg Intake: IV 450 Sodium Chloride 0.9% 1, 150 000 ml @ 75 mls/hr IV . [id number] [facility] Rx#:[id number] Sodium Chloride 0.9% 1, 200 000 ml In Empty Bag 1 bag @ 1 ML/KG/HR 154.5 mls/ hr IV .[id number] Rx#: [id number] Intake, IV Titration 50 Amount ceFAZolin 1,000 mg In 50 Sodium Chloride 0.9% 50 ml @ 100 mls/hr IVPB Q8H [facility] Rx#:[id number] Oral 740 Output: Urine 1950 525 600 Other: Voiding Method Urinal Urinal # Voids 200 # Bowel Movements 1 - Exam In general patient is alert and oriented 3 in no apparent distress HEENT head normocephalic and atraumatic Neck is supple no JVD no goiter no lymphadenopathy Chest exam reveals a few scattered rhonchi no wheezing Cardiac exam reveals regular heart sounds S1 and S2 no gallops no murmurs Abdomen is soft nontender no organomegaly with normal bowel sounds Extremity exam reveals minimal edema on the left, the right lower extremity is significantly swollen, and is twice the size of the left lower extremity, patient stated that this is chronic for him and he was checked several times in the past and had no evidence of DVT. Neurology Exam reveals no gross focal deficit. - Labs CBC & Chem 7: 04/02/20 04:13 04/02/20 04:13 Labs: Abnormal Lab Results - Last 24 Hours (Table) 04/01/20 04/02/20 04/02/20 Range/Units 21:35 04:13 04:13 WBC 13.2 H (3.8-10.6) k/uL Neutrophils # 9.2 H (1.3-7.7) k/uL Carbon Dioxide 31 H (22-30) mmol/L BUN 22 H (9-20) mg/dL Glucose 171 H (74-99) mg/dL POC Glucose (mg/dL) 254 H (75-99) mg/dL 04/02/20 04/02/20 04/02/20 Range/Units 06:52 12:05 17:11 WBC (3.8-10.6) k/uL Neutrophils # (1.3-7.7) k/uL Carbon Dioxide (22-30) mmol/L BUN (9-20) mg/dL Glucose (74-99) mg/dL POC Glucose (mg/dL) 189 H 190 H 213 H (75-99) mg/dL Assessment and Plan Plan: 1. Ventricular tachycardia, patient converted to normal sinus rhythm on IV amiodarone drip 2. Syncopal episodes related to cardiac arrhythmia 3. History of paroxysmal atrial fibrillation 4. Insulin-dependent diabetes mellitus 5. Underlying history of obstructive sleep apnea maintained on CPAP 6. History of congestive heart failure. 7. Underlying history of hypertension 8. Underlying history of hyperlipidemia 9. Status post cardiac catheterization with angioplasty and stent placement today At this time patient is admitted to intensive care unit Pulmonary and cardiology consultation requested Echocardiogram ordered Lantus was reordered, continue sliding scale, continue to withhold metformin Will follow in a.m. possible discharge to home tomorrow
--- NOTE | 2020-04-02 18:42 | P.CRDCN ---
History of Present Illness History of present illness: This is Dr. Lamb dictating a consult on this patient The patient was interviewed and examined Electrophysiology consult for sustained monomorphic ventricular tachycardia, fast IMPRESSION / ASSESSMENT: Patient presented with sustained fast ventricular tachycardia, left ventricle inferior wall focus, QS pattern in the inferior leads during VT, likely epicardial or deep focus inferior wall Terminated with IV amiodarone QRS fractionation in the inferior leads in sinus rhythm CAD status post coronary stenting today to the PLV branch originating from the left circumflex, patient already on 40 mg of atorvastatin Reduced LV systolic function ejection fraction of about 40-45% but with inferior wall hypokinesis which is new Elevated white count with possible pneumonitis on chest x-ray Type 2 diabetes, hypertension, Calcific aortic valve, mild aortic stenosis PLAN: Dual antiplatelet therapy, statins post stenting Increase atorvastatin to 80 mg daily Switched from metoprolol to carvedilol Agree with oral amiodarone for now Treat infection, possibly pneumonitis LifeVest for now Restart spironolactone and lisinopril lipid panel Resume ELIQUIS, triple therapy for a month followed by discontinuation of aspirin Restart lisinopril in 24-48 hours Stop amlodipine completely Future considerations: Diagnostic EP study off amiodarone, for risk stratification As well as VT ablation, preferably transseptal approach rather than retrograde, looking at that calcification of the aortic valve HPI Patient follows with me in the office presenting with an episode of dizziness and chest discomfort. He felt very lightheaded. He was found to be in ventricular tachycardia but is alert and oriented He was started on IV amiodarone and the ventricular tachycardia terminated Ventricular tachycardia rate 240 beats a minute, right bundle branch block like, QS pattern in the inferior leads, A-V dissociation noted Postconversion ECG showed sinus rhythm mildly prolonged ND interval no definite ST segment abnormalities but QRS fractionation is noted in the inferior leads particularly so in aVF at the terminal end of the sinus QRS ROS: No fever chills or rigors, no cough, phlegm or expectoration, no nausea, vomiting or diarrhea, no hematuria, dysuria, no musculoskeletal complaints, no strokes or seizures, no skin lesions. Presented with chest pain and lightheadedness EXAMINATION: 124/99 and 150/73 mmHg pulse rate in the 70s Sitting comfortably in a chair Thick neck, no obvious JVD Trophic changes in lower extremities Lungs sounds are clear no rhonchi no crackles Heart sounds are soft Blood pressure is normal REVIEW OF LABS, ECG & MEDICAL DATA WHITE count elevated initially 14,000 now 13.2 Hemoglobin normal Sodium 138, potassium 3.8, BUN 22 creatinine 0.96 Abnormal troponins of 0.05 and 0.26 TSH suppressed Coronary angiography revealed PLV originating from the left circumflex, status post stenting to an occluded vessel Past Medical History Past Medical History: Atrial Fibrillation, Heart Failure, COPD, Diabetes Mellitus, Hyperlipidemia, Hypertension, Osteoarthritis (OA), Sleep Apnea/CPAP/BIPAP Additional Past Medical History / Comment(s): CELLULITIS TO RLE, cpap See Dr House H&P for cardiac history. History of Any Multi-Drug Resistant Organisms: None Reported Past Surgical History: Ablation, Appendectomy, Heart Catheterization, Tonsillectomy Additional Past Surgical History / Comment(s): "Heart cath done for ablation" Past Anesthesia/Blood Transfusion Reactions: No Reported Reaction Additional Past Anesthesia/Blood Transfusion Reaction / Comment(s): grumpy after surgery Past Psychological History: No Psychological Hx Reported Smoking Status: Former smoker Past Alcohol Use History: None Reported Additional Past Alcohol Use History / Comment(s): cigar once or twice a day Past Drug Use History: None Reported - Past Family History Mother Family Medical History: No Reported History Father Family Medical History: Myocardial Infarction ([place]) Medications and Allergies Home Medications Medication Instructions Recorded Confirmed Type Insulin Glargine,Hum.rec.anlog 60 unit SQ BID 10/18/16 03/30/20 History [Lantus Solostar] metFORMIN HCL 1,000 mg PO AC-BID 10/18/16 03/30/20 History Apixaban [Eliquis] 5 mg PO BID #60 tab 10/24/16 03/30/20 Rx Aspirin EC [Ecotrin Low Dose] 81 mg PO BID 02/26/17 03/30/20 History Nitroglycerin Sl Tabs [Nitrostat] 0.4 mg SUBLINGUAL Q5M PRN tab 02/28/17 03/30/20 Rx Acetaminophen Tab [Tylenol] 650 mg PO QAM PRN 03/30/20 03/30/20 History Ascorbic Acid [Vitamin C] 500 mg PO DAILY 03/30/20 03/30/20 History Furosemide [Lasix] 120 mg PO DAILY 03/30/20 03/30/20 History Insulin Lispro [humaLOG Kwikpen] 35 unit SQ AC-TID 03/30/20 03/30/20 History Insulin Lispro [humaLOG Kwikpen] See Protocol SQ AC-TID PRN 03/30/20 03/30/20 History Spironolactone [Aldactone] 50 mg PO DAILY 03/30/20 03/30/20 History lisinopriL [Zestril] 40 mg PO HS 03/30/20 03/30/20 History Allergies Allergy/AdvReac Type Severity Reaction Status Date / Time No Known Allergies Allergy Verified 03/30/20 22:17 Physical Exam Vitals: Vital Signs Temp Pulse Resp BP BP Pulse Ox 04/02/20 16:30 63 23 150/73 96 04/02/20 16:00 76 15 124/99 94 L 04/02/20 15:30 72 24 123/73 94 L 04/02/20 15:00 75 11 L 119/70 123/73 94 L 04/02/20 14:45 119/70 04/02/20 14:30 63 20 133/86 133/86 94 L 04/02/20 13:30 159/84 04/02/20 13:00 68 21 149/83 92 L 04/02/20 12:00 98.9 F 70 24 148/83 94 L 04/02/20 11:00 70 20 130/76 94 L 04/02/20 10:00 64 22 146/94 92 L 04/02/20 09:00 98.4 F 61 25 H 152/90 93 L 04/02/20 08:00 98.8 F 64 19 152/90 96 04/02/20 07:00 63 21 152/90 96 04/02/20 06:00 68 12 95 04/02/20 04:00 98.7 F 63 18 145/86 96 04/02/20 03:00 62 17 145/87 95 04/02/20 02:00 61 17 97 04/02/20 01:00 60 16 96 04/02/20 00:00 98.1 F 62 18 96 04/01/20 23:00 64 11 L 157/89 96 04/01/20 22:00 72 23 153/94 96 04/01/20 21:00 98.0 F 62 15 156/94 95 04/01/20 20:00 68 15 09/27/20 19:00 61 17 04/01/20 18:00 60 23 Intake and Output 04/02/20 04/02/20 04/02/20 06:59 14:59 22:59 Intake Total 300 150 Output Total 150 400 200 Balance -150 -100 -50 Intake: IV 300 150 Sodium Chloride 0.9% 1, 150 000 ml @ 75 mls/hr IV . [id number] [facility] Rx#:[id number] Sodium Chloride 0.9% 1, 200 000 ml In Empty Bag 1 bag @ 1 ML/KG/HR 154.5 mls/ hr IV .Q6H29M [facility] Rx#: [id number] Output: Urine 150 400 200 Other: Voiding Method Urinal Urinal Weight 154.5 kg Results 04/02/20 04:13 04/02/20 04:13 CBC 04/02/20 Range/Units 04:13 WBC 13.2 H (3.8-10.6) k/uL RBC 5.32 (4.30-5.90) m/uL Hgb 14.8 (13.0-17.5) gm/dL Hct 46.8 (39.0-53.0) % Plt Count 302 (150-450) k/uL Comprehensive Metabolic Panel 04/02/20 Range/Units 04:13 Sodium 138 (137-145) mmol/L Potassium 3.8 (3.5-5.1) mmol/L Chloride 102 (98-107) mmol/L Carbon Dioxide 31 H (22-30) mmol/L BUN 22 H (9-20) mg/dL Creatinine 0.96 (0.66-1.25) mg/dL Glucose 171 H (74-99) mg/dL Calcium 8.8 (8.4-10.2) mg/dL Current Medications Generic Name Dose Route Start Last Admin Trade Name Freq PRN Reason Stop Dose Admin Acetaminophen 650 mg 03/30/20 22:12 Acetaminophen Tab 325 Mg Tab PO Q4HR PRN Fever and/or Mild Pain Alprazolam 0.25 mg 04/02/20 07:44 Alprazolam 0.25 Mg Tab PO Q6HR PRN Mild Anxiety Alprazolam 0.5 mg 04/02/20 07:44 Alprazolam 0.5 Mg Tab PO Q6HR PRN Moderate Anxiety Amiodarone HCl 200 mg 04/02/20 21:00 Amiodarone 100 Mg Tab PO BID DOUGLAS Aspirin 81 mg 03/31/20 09:00 04/02/20 08:39 Aspirin 81 Mg PO Not Given BID DOUGLAS Atorvastatin Calcium 40 mg 03/31/20 09:00 04/02/20 08:40 Atorvastatin 40 Mg Tab PO Not Given QAM DOUGLAS Furosemide 40 mg 03/31/20 09:00 04/02/20 17:01 Furosemide 40 Mg Tab PO 40 mg BID@0900,1600 DOUGLAS Administration Cefazolin Sodium 1,000 mg/ 50 mls @ 100 mls/hr 04/01/20 12:00 04/02/20 15:17 Sodium Chloride IVPB 100 mls/hr Q8H DOUGLAS Administration Sodium Chloride 1,000 mls @ 75 mls/hr 04/02/20 14:30 04/02/20 14:30 Saline 0.9% IV 04/02/20 20:30 75 mls/hr .[id number] DOUGLAS Administration Insulin Aspart 0 unit 03/31/20 17:30 04/02/20 12:08 Insulin Aspart (Novolog) 100 Unit/Ml Vial SQ 5 unit ACHS DOUGLAS Administration Protocol Insulin Detemir 60 unit 04/02/20 21:00 Insulin Detemir (Levemir) 100 Unit/Ml Syr SQ BID DOUGLAS Metoprolol Succinate 50 mg 04/02/20 09:00 04/02/20 08:37 Metoprolol Succinate (Er) 25 Mg Tab.Er.24h PO 50 mg DAILY ODUGLAS Administration Miscellaneous Information 1 each 04/01/20 07:16 Potassium Replacement Protocol 1 Each Misc MISCELLANE DAILY PRN Per Protocol Protocol Morphine Sulfate 2 mg 03/30/20 22:12 Morphine Sulfate 2 Mg/Ml Syringe IV Q2HR PRN Pain Scale 4 to 5 Naloxone HCl 0.2 mg 03/30/20 22:12 Naloxone 0.4 Mg/Ml 1 Ml Vial IV Q2M PRN Opioid Reversal Nitroglycerin 0.4 mg 04/02/20 07:44 Nitroglycerin Sl Tabs 0.4 Mg Tab SUBLINGUAL Q5M PRN Chest Pain Prasugrel 10 mg 04/03/20 09:00 Prasugrel 10 Mg Tab PO DAILY DOUGLAS Intake and Output 04/02/20 04/02/20 04/02/20 06:59 14:59 22:59 Intake Total 300 150 Output Total 150 400 200 Balance -150 -100 -50 Intake: IV 300 150 Sodium Chloride 0.9% 1, 150 000 ml @ 75 mls/hr IV . [id number] [facility] Rx#:[id number] Sodium Chloride 0.9% 1, 200 000 ml In Empty Bag 1 bag @ 1 ML/KG/HR 154.5 mls/ hr IV .Q6H29M [facility] Rx#: [id number] Output: Urine 150 400 200 Other: Voiding Method Urinal Urinal Weight 154.5 kg 04/02/20 04:13 04/02/20 04:13
[2020-04-02] MEDS: AMIODARONE 100 MG TAB PO SCH (20:03)
[2020-04-02] MEDS: carvediloL 6.25 MG TAB PO SCH (20:03)
[2020-04-02 20:11] LABS: Glucose,Whole Blood 307 mg/dL (75-99)
[2020-04-02] MEDS: INSULIN DETEMIR (LEVEMIR) 100 UNIT/ML SYR SQ SCH (20:11)
--- NOTE | 2020-04-02 22:35 | PN ---
PROGRESS NOTE DATE OF SERVICE: 04/02/2020 REASON FOR FOLLOWUP: Right lower extremity cellulitis. INTERVAL HISTORY: The patient is currently afebrile. The patient is breathing comfortably. Denies having any chest pain or shortness of breath or cough. No nausea, no vomiting, no abdominal pain. Right leg still has some swelling. Denies any pain to the leg. PHYSICAL EXAMINATION: Blood pressure is 133/86, pulse 73, temperature 98. He is 94% on room air. General description is an elderly male up in the chair in no distress. RESPIRATORY SYSTEM: Unlabored breathing. Clear to auscultation. HEART: S1, S2. Regular rate and rhythm. ABDOMEN: Soft. No tenderness. Right leg did have the swelling. No open wound or any drainage. LABS: Hemoglobin 14.8, white count 13.2, BUN of 22, creatinine 0.97. DIAGNOSTIC IMPRESSION AND PLAN: Patient with acute right lower extremity swelling with concern for possible cellulitis. The patient is currently covered with cefazolin; to continue. Will monitor his clinical course closely. MMODL / DAWITN: [id number] /
[2020-04-03 03:05] LABS: Cholesterol 163 mg/dL (<200); HDL Cholesterol 31 mg/dL (40-60); LDL Cholesterol,Calculated 108 mg/dL (0-99); Triglycerides 121 mg/dL (<150)
[2020-04-03 05:35] LABS: Basophils # (A) 0.1 k/uL (0-0.2); Basophils % (A) 1 %; Eosinophils # (A) 0.4 k/uL (0-0.7); Eosinophils % (A) 3 %; HCT 46.5 % (39.0-53.0); HGB 14.6 gm/dL (13.0-17.5); Lymphocytes # (A) 2.4 k/uL (1.0-4.8); Lymphocytes % (A) 18 %; MCHC 31.5 g/dL (31.0-37.0); MCV 88.9 fL (80.0-100.0); Mean Platelet Volume 6.3; Monocytes # (A) 0.8 k/uL (0-1.0); Monocytes % (A) 6 %; Neutrophils # (A) 9.3 k/uL (1.3-7.7); Neutrophils % (A) 71 %; Platelet Count 259 k/uL (150-450); RBC 5.23 m/uL (4.30-5.90); RDW 14.3 % (11.5-15.5); WBC 13.1 k/uL (3.8-10.6)
[2020-04-03 05:42] LABS: African American GFR (CKD) >90 (>60 ml/min/1.73 sqM); Anion Gap 10 mmol/L; Blood Urea Nitrogen 23 mg/dL (9-20); Calcium 8.6 mg/dL (8.4-10.2); Carbon Dioxide 24 mmol/L (22-30); Chloride 106 mmol/L (98-107); Glucose 156 mg/dL (74-99); Non-African American GFR(CKD) 78 (>60 ml/min/1.73 sqM); Potassium 3.8 mmol/L (3.5-5.1); Sodium 140 mmol/L (137-145)
[2020-04-03] MEDS ORDERED: POTASSIUM CHLORIDE ER 20 MEQ TAB.ER PO SCH (06:00)
[2020-04-03] MEDS: carvediloL 6.25 MG TAB PO SCH ×2 (06:21→16:12)
[2020-04-03 06:25] LABS: Glucose,Whole Blood 189 mg/dL (75-99)
[2020-04-03] MEDS: INSULIN ASPART (NovoLOG) 100 UNIT/ML VIAL SQ SCH ×4 (06:27→20:37)
[2020-04-03] MEDS: INSULIN DETEMIR (LEVEMIR) 100 UNIT/ML SYR SQ SCH ×2 (08:54→20:38)
[2020-04-03] MEDS ORDERED: lisinopriL 10 MG TAB PO SCH (09:00)
[2020-04-03] MEDS ORDERED: SPIRONOLACTONE 25 MG TAB PO SCH (09:00)
[2020-04-03] MEDS: AMIODARONE 100 MG TAB PO SCH (09:15)
[2020-04-03] MEDS: APIXABAN 5 MG TAB PO SCH ×2 (09:15→20:37)
[2020-04-03] MEDS: ASPIRIN 81 MG PO SCH ×2 (09:15→20:37)
[2020-04-03] MEDS: ATORVASTATIN 80 MG TAB PO SCH (09:16)
[2020-04-03] MEDS: lisinopriL 10 MG TAB PO SCH ×2 (09:16→20:37)
[2020-04-03] MEDS: PRASUGREL 10 MG TAB PO SCH (09:16)
[2020-04-03] MEDS: FUROSEMIDE 40 MG TAB PO SCH ×2 (09:16→16:12)
[2020-04-03] MEDS: SPIRONOLACTONE 25 MG TAB PO SCH (09:17)
--- NOTE | 2020-04-03 10:08 | P.PN ---
Subjective Progress Note Date: 04/03/20 Principal diagnosis: Nonsustained ventricular tachycardia This is a 64-year-old white male with history of paroxysmal atrial fibrillation, status post ablation, patient is maintained on anticoagulation therapy. He normally sees Dr. Phelps on a regular basis. Patient is also known to have a strong family history of premature coronary artery disease, father at age 55 from acute myocardial infarction. According to the patient his called EMS because she heard a noise, and she found her collapsed on the floor. Patient remembers that he passed out, but couldn't give any details. Upon EMS arrival, patient was noted to be in ventricular tachycardia, and he did have a pulse. Patient was placed on amiodarone, and converted to a normal sinus rhythm in the emergency room. Considering his presentation of ventricular tachycardia, patient was admitted to the ICU, and I was asked to see him on consultation. Presently the patient is in normal sinus rhythm, asymptomatic, denies any chest pain, denies any cough, no wheezing, no shortness of breath. Denies any palpitations. Denies any neurological symptoms. Patient states that he had previous cardiac catheterization back in 2006 done at [facility], and no cardiac catheterization since then. But he did have ablation supposedly in [address] Phelps. Patient was reevaluated today on 04/01/20, remains in the ICU, basically about the same, patient is asymptomatic, uses his CPAP at night. No further episodes of ventricular tachycardia documented in the last 24 hours. Patient is scheduled to undergo cardiac catheterization tomorrow. CBC is relatively normal electrocerebral normal renal profile is normal. On 04/02/2020 patient seen in follow-up in the intensive care unit, he is awake and alert, in no acute distress, he sitting up in the recliner, in no acute distress, denies any chest pain, denies any shortness of breath, lung sounds are clear, patient has chronic swelling in his right lower extremity chronic venous stasis changes which she states due to venous insufficiency in his right lower extremity, no warmth, no redness, no swelling in the left lower extremity, patient is sinus mechanism on the monitor. Rate is 68. Lung signs have been stable, no acute events overnight, the patient's Eliquis is on hold. She remains on oral amiodarone, and cardiology is following and plan on cardiac catheterization today. Right lower extremity ultrasound was negative for DVT. She continues on oral Lasix, and yesterday's chest x-ray shows clear lungs On 04/03/2020 patient seen in follow-up in the intensive care unit, he is been stable overnight, no recurrence of arrhythmias, in sinus mechanism this morning, with a controlled rate. No complaint of chest pain, no shortness of breath. Etiology is following, patient is supposed to be fitted for a life vest sometime today, his been wearing his CPAP unit from home at night, he is on oral amiodarone at 200 mg twice daily, oral anticoagulation in the form of Eliquis, nightly his IV is hep-locked, room air pulse ox is 94%, hemodynamically stable, he has had no fever or chills, today's labs have been reviewed, showing limited cell count 13.1, hemoglobin is 14.6, electrolytes and renal profile were unremarkable. No new chest x-ray. Objective - Vital Signs Vital signs: Vital Signs Temp 97.7 F 04/03/20 08:00 Pulse 64 04/03/20 09:00 Resp 14 04/03/20 09:00 BP 129/88 04/03/20 08:00 Pulse Ox 95 04/03/20 09:00 Intake & Output 04/02/20 04/03/20 04/03/20 18:59 06:59 18:59 Intake Total 600 250 200 Output Total 600 950 250 Balance 0 -700 -50 Weight 153.2 kg Intake: IV 600 Sodium Chloride 0.9% 1, 300 000 ml @ 75 mls/hr IV . [id number] [facility] Rx#:[id number] Sodium Chloride 0.9% 1, 200 000 ml In Empty Bag 1 bag @ 1 ML/KG/HR 154.5 mls/ hr IV .Q6H29M [facility] Rx#: [id number] Intake, IV Titration 50 Amount ceFAZolin 1,000 mg In 50 Sodium Chloride 0.9% 50 ml @ 100 mls/hr IVPB Q8H [facility] Rx#:[id number] Oral 200 200 Output: Urine 600 950 250 Other: Voiding Method Urinal Urinal Urinal # Bowel Movements 1 - Exam GENERAL EXAM: Alert, very pleasant, 64-year-old white male, currently on room air, with a pulse ox of 94% comfortable in no apparent distress. HEAD: Normocephalic/atraumatic. EYES: Normal reaction of pupils, equal size. Conjunctiva pink, sclera white. NOSE: Clear with pink turbinates. THROAT: No erythema or exudates. NECK: No masses, no JVD, no thyroid enlargement, no adenopathy. CHEST: No chest wall deformity. Symmetrical expansion. LUNGS: Equal air entry with no crackles, wheeze, rhonchi or dullness. CVS: Regular rate and rhythm, normal S1 and S2, no gallops, no murmurs, no rubs ABDOMEN: Soft, nontender. No hepatosplenomegaly, normal bowel sounds, no guarding or rigidity. EXTREMITIES: No clubbing, chronic right lower extremity edema related to venous insufficiency, with the lower extremity Doppler negative for DVT, with the venous stasis changes to the skin no cyanosis, 2+ pulses and upper and lower extremities. MUSCULOSKELETAL: Muscle strength and tone normal. SPINE: No scoliosis or deformity SKIN: No rashes CENTRAL NERVOUS SYSTEM: Alert and oriented -3. No focal deficits, tone is normal in all 4 extremities. PSYCHIATRIC: Alert and oriented -3. Appropriate affect. Intact judgment and insight. - Labs CBC & Chem 7: 04/03/20 04:56 04/03/20 04:56 Labs: Abnormal Lab Results - Last 24 Hours (Table) 04/02/20 04/02/20 04/02/20 Range/Units 04:13 12:05 17:11 WBC (3.8-10.6) k/uL Neutrophils # (1.3-7.7) k/uL BUN (9-20) mg/dL Glucose (74-99) mg/dL POC Glucose (mg/dL) 190 H 213 H (75-99) mg/dL LDL Cholesterol, Calc 108 H (0-99) mg/dL HDL Cholesterol 31 L (40-60) mg/dL 04/02/20 04/03/20 04/03/20 Range/Units 20:10 04:56 04:56 WBC 13.1 H (3.8-10.6) k/uL Neutrophils # 9.3 H (1.3-7.7) k/uL BUN 23 H (9-20) mg/dL Glucose 156 H (74-99) mg/dL POC Glucose (mg/dL) 307 H (75-99) mg/dL LDL Cholesterol, Calc (0-99) mg/dL HDL Cholesterol (40-60) mg/dL 04/03/20 Range/Units 06:23 WBC (3.8-10.6) k/uL Neutrophils # (1.3-7.7) k/uL BUN (9-20) mg/dL Glucose (74-99) mg/dL POC Glucose (mg/dL) 189 H (75-99) mg/dL LDL Cholesterol, Calc (0-99) mg/dL HDL Cholesterol (40-60) mg/dL Assessment and Plan Plan: Assessment: #1. Ventricular tachycardia, nonsustained, responded to amiodarone drip, patient is currently in sinus mechanism #2. Elevated troponins, cardiology is following #3. Episode of syncope secondary to ventricular tachycardia #4. History of paroxysmal atrial fibrillation #5. Morbid obesity #6. Chronic swelling in the right lower extremity related to venous insufficiency, with the lower to mid Doppler negative for DVT #7. Type 2 diabetes mellitus #8. [place] history of premature coronary artery disease #9. Obstructive sleep apnea syndrome on CPAP therapy Plan: Patient has remained stable overnight, no recurrence of arrhythmias, patient has been transitioned over to oral amiodarone, and oral anticoagulation, cardiology is on the case, adjusting patient's medications, patient supposed to be fitted for LifeVest. Stable for transfer out of intensive care unit to stepdown bed. I performed a history & physical examination of the patient and discussed their management with my nurse practitioner, Madalyn Ohara. I reviewed the nurse practitioner's note and agree with the documented findings and plan of care. L ada sounds are positive for diminished breath sounds. The findings and the impression was discussed with the patient. I attest to the documentation by the nurse practitioner. Time with Patient: Less than 30
--- NOTE | 2020-04-03 10:38 | PN ---
PROGRESS NOTE Mr. Angel is a 64-year-old male who presented with ventricular tachycardia. He has history of atrial fibrillation. His echocardiogram was reported showing an ejection fraction of 40% to 45%. He had mild mitral and tricuspid regurgitation. He underwent cardiac catheterization yesterday and underwent stenting of his left circumflex. He is doing well this morning. He continues to be in sinus mechanism. He denies any chest pain. He denies any dizziness or palpitations. He denies any nausea. He was evaluated by Dr. Lamb. The patient would require a LifeVest and subsequent EP study with possible ventricular tachycardia ablation. He continues to be on aspirin once a day, Effient 10 mg daily, amiodarone 200 mg twice a day, Lipitor 80 mg daily, Coreg 6.5 mg twice a day, Lasix 40 mg twice a day and spironolactone 25 mg daily. PHYSICAL EXAMINATION: Blood pressure running in the 130s to 150s with the heart rate in the 60s. LUNGS: Clear. Heart: Regular rate and rhythm, S1, S2. No S3. No rub. Abdomen are soft, obese, nontender. EXTREMITIES: With chronic stasis 1+ edema. Right radial pulse intact. LAB DATA: BUN and creatinine 23 and 1.0, hemoglobin of 14.6, white blood cells 13.1. IMPRESSION: 1. Ventricular tachycardia. 2. Status post stenting of the left circumflex. 3. History of atrial fibrillation. 4. Cardiomyopathy, worsened compared to the past. 5. Mild troponin elevation could represent non ST-segment elevation myocardial infarction. 6. Chronic discoloration of lower extremities. 7. Obesity. 8. Hyperlipidemia. RECOMMENDATION: I will restart him on lisinopril. Continue the rest of his medical regimen. Increase his level of activity gradually and follow his renal function closely. I will re- initiate treatment with the Eliquis and subsequently stop the aspirin. The patient will get a life vest. MMODL / IJN: [id number] /
[2020-04-03 11:52] LABS: Glucose,Whole Blood 201 mg/dL (75-99)
[2020-04-03] MEDS ORDERED: ADENOSINE 3 MG/ML 2 ML VIAL IVP ONE (13:48)
[2020-04-03] MEDS ORDERED: DEXTROSE 5% IN WATER 100 ML with AMIODARONE 150 MG IV ONE (14:45)
[2020-04-03] MEDS ORDERED: LIDOCAINE 2% SYG (PF) 100 MG/5 ML IV ONE (15:00)
[2020-04-03] MEDS ORDERED: AMIODARONE 360 MG in DEXTROSE 5% IN WATER 200 ML IV ONE ×2 (15:15)
[2020-04-03 17:06] LABS: Glucose,Whole Blood 265 mg/dL (75-99)
--- NOTE | 2020-04-03 17:49 | P.PN ---
Subjective Progress Note Date: 04/03/20 Jossue Angel, is a 64-year-old male who presented to [facility] emergency room after a syncopal episode, at bedside stated that she found her unconscious, she called EMS, patient regained consciousness when EMS were in the house, he was able to stand up change his clothes and walk out to the front of the house, patient was noticed to be in ventricular tachycardia, he was started on IV amiodarone and was brought to the emergency room, patient was admitted to intensive care unit, pulmonary consultation and cardiology consultation were requested, patient regained normal sinus rhythm after he was started on IV amiodarone. Patient has a known history of cardiac arrhythmia, he has known history of paroxysmal atrial fibrillation he is followed by Dr. Lamb, he underwent cardiac ablation in the past, he was placed on oral amiodarone which he was taking 3 times weekly, he had a cardiac catheterization in 2006, he had cardiac ablation in 2016. Patient also has a known history of congestive heart failure, history of insulin-dependent diabetes mellitus, history of obstructive sleep apnea, history of hypertension, history of hyperlipidemia, and history of osteoarthritis. Patient was seen and examined in the intensive care unit, he is alert and oriented 3 in no apparent distress, he denies any symptoms at this time, there is no fever or chills no headache or dizziness no chest pain no shortness of breath no cough no nausea or vomiting no abdominal pain no diarrhea no blood in the stools, no burning with urination no frequency or urgency and no hematuria. On 04/01/2020 patient was seen and examined in the ICU he is alert and oriented 3 in no apparent distress there is no fever or chills no headache or dizziness no chest pain no shortness of breath no cough no nausea or vomiting no abdominal pain no diarrhea no burning with urination no frequency or urgency and no hematuria. Patient is scheduled for cardiac catheterization tomorrow. Patient is complaining of more swelling and erythema in the right lower extremity then usual there is a small scabbed wound in the right pretibial area at this time will start IV antibiotics cefazolin check right lower extremity Doppler and consult infectious disease. On 04/02/2020 patient was seen and examined in the ICU he is alert and oriented 3 in no apparent distress there is no fever or chills no headache or dizziness no chest pain no shortness of breath no cough no nausea or vomiting no abdominal pain no diarrhea no blood in the stools no burning with urination no frequency or urgency and no hematuria, he underwent cardiac catheterization today with angioplasty and stent placement on 04/03/2020 patient was seen and examined in the ICU, he is alert and oriented 3 sitting up at the edge of the bed, he had multiple episodes of V. tach this afternoon, he was restarted on amiodarone drip, he is being sent for life vest at this time, cardiology and pulmonary critical care following. Patient is f eeling tired otherwise denies any complaints at this time there is no fever or chills no headache or dizziness no chest pain no shortness of breath no cough no nausea or vomiting no abdominal pain no diarrhea no blood in the stools no burning with urination no frequency or urgency no hematuria Objective - Vital Signs Vital signs: Vital Signs Temp 98.1 F 04/03/20 16:00 Pulse 83 04/03/20 17:00 Resp 11 L 04/03/20 17:00 BP 146/81 04/03/20 17:00 Pulse Ox 94 L 04/03/20 17:00 Intake & Output 04/02/20 04/03/20 04/03/20 18:59 06:59 18:59 Intake Total 600 250 400 Output Total 600 950 650 Balance 0 -700 -250 Weight 153.2 kg Intake: IV 600 Sodium Chloride 0.9% 1, 300 000 ml @ 75 mls/hr IV . [id number] [facility] Rx#:[id number] Sodium Chloride 0.9% 1, 200 000 ml In Empty Bag 1 bag @ 1 ML/KG/HR 154.5 mls/ hr IV .[id number] [facility] Rx#: [id number] Intake, IV Titration 50 50 Amount ceFAZolin 1,000 mg In 50 50 Sodium Chloride 0.9% 50 ml @ 100 mls/hr IVPB Q8H [facility] Rx#:[id number] Oral 200 350 Output: Urine 600 950 650 Other: Voiding Method Urinal Urinal Urinal # Bowel Movements 1 - Exam In general patient is alert and oriented 3 in no apparent distress HEENT head normocephalic and atraumatic Neck is supple no JVD no goiter no lymphadenopathy Chest exam reveals a few scattered rhonchi no wheezing Cardiac exam reveals regular heart sounds S1 and S2 no gallops no murmurs Abdomen is soft nontender no organomegaly with normal bowel sounds Extremity exam reveals minimal edema on the left, the right lower extremity is significantly swollen, and is twice the size of the left lower extremity, patient stated that this is chronic for him and he was checked several times in the past and had no evidence of DVT. Neurology Exam reveals no gross focal deficit. - Labs CBC & Chem 7: 04/03/20 04:56 04/03/20 04:56 Labs: Abnormal Lab Results - Last 24 Hours (Table) 04/02/20 04/02/20 04/03/20 Range/Units 04:13 20:10 04:56 WBC 13.1 H (3.8-10.6) k/uL Neutrophils # 9.3 H (1.3-7.7) k/uL BUN (9-20) mg/dL Glucose (74-99) mg/dL POC Glucose (mg/dL) 307 H (75-99) mg/dL LDL Cholesterol, Calc 108 H (0-99) mg/dL HDL Cholesterol 31 L (40-60) mg/dL 04/03/20 04/03/20 04/03/20 Range/Units 04:56 06:23 11:50 WBC (3.8-10.6) k/uL Neutrophils # (1.3-7.7) k/uL BUN 23 H (9-20) mg/dL Glucose 156 H (74-99) mg/dL POC Glucose (mg/dL) 189 H 201 H (75-99) mg/dL LDL Cholesterol, Calc (0-99) mg/dL HDL Cholesterol (40-60) mg/dL 04/03/20 Range/Units 17:05 WBC (3.8-10.6) k/uL Neutrophils # (1.3-7.7) k/uL BUN (9-20) mg/dL Glucose (74-99) mg/dL POC Glucose (mg/dL) 265 H (75-99) mg/dL LDL Cholesterol, Calc (0-99) mg/dL HDL Cholesterol (40-60) mg/dL Assessment and Plan Plan: 1. Ventricular tachycardia, patient converted to normal sinus rhythm on IV amiodarone drip 2. Syncopal episodes related to cardiac arrhythmia 3. History of paroxysmal atrial fibrillation 4. Insulin-dependent diabetes mellitus 5. Underlying history of obstructive sleep apnea maintained on CPAP 6. History of congestive heart failure. 7. Underlying history of hypertension 8. Underlying history of hyperlipidemia 9. Status post cardiac catheterization with angioplasty and stent placement today 10. recurrent episodes of V. tach on 04/03/2020 patient was restarted on amiodarone drip cardiology are following At this time patient is admitted to intensive care unit Pulmonary and cardiology consultation requested Echocardiogram ordered Lantus was reordered, continue sliding scale, continue to withhold metformin Will follow in a.m. possible discharge to home tomorrow
[2020-04-03] MEDS: MEXILETINE 150 MG CAP PO SCH ×2 (19:12→22:50)
[2020-04-03 20:24] LABS: Glucose,Whole Blood 273 mg/dL (75-99)
[2020-04-03] MEDS: AMIODARONE 300 MG in DEXTROSE 5% IN WATER 250 ML IV SCH ×2 (21:11)
--- NOTE | 2020-04-04 00:15 | PN ---
PROGRESS NOTE DATE OF SERVICE: 04/03/2020 REASON FOR FOLLOWUP: Right lower extremity cellulitis and leukocytosis. INTERVAL HISTORY: Patient is currently afebrile. Patient is breathing comfortably. Denies any chest pain or cough. No nausea. No vomiting. No abdominal pain. Still some swelling of the right leg but no redness, no drainage. PHYSICAL EXAMINATION: Blood pressure 130/78 with a pulse of 73, temperature 98. He is 96% on room air. General description is an elderly male lying in bed in no distress. Respiratory system: Unlabored breathing, clear to auscultation anteriorly. Heart S1, S2. Regular rate and rhythm. Abdomen soft, no tenderness. Right leg with swelling but no open wound or any drainage. LABS: Hemoglobin is 14.6, white count 13.9, BUN of 23, creatinine 1.8. DIAGNOSTIC IMPRESSION AND PLAN: Patient with leukocytosis, multifactorial with concern for possible right lower extremity cellulitis. Patient is currently covered with Zosyn to continue and monitor clinical course closely. MMODL / IJN: [id number] / NICO
--- NOTE | 2020-04-04 01:21 | CC ---
CARDIAC CATHETERIZATION REPORT DATE OF SERVICE: April 02, 2020 PERFORMING PHYSICIAN: Nawaf Gomez M.D. PROCEDURE PERFORMED: Successful stenting of the mid left circumflex coronary artery using 2.5 x 12 mm Xience SAMARA with an excellent angiographic results and reduction of stenosis from 90% to 0%. INDICATION: This is a 64-year-old gentleman with diabetes and hypertension and dyslipidemia who sees Dr. Lamb in the office on a regular basis with also history of paroxysmal atrial fibrillation who underwent ablation in the past, was admitted to the hospital with sustained ventricular tachycardia. He was converted to normal sinus mechanism after he was started on amiodarone. The troponin came in to be slightly elevated. He underwent an echocardiogram which showed mildly impaired left ventricular systolic function. Because of that, a heart catheterization was advised. APPROACH: Right radial artery. COMPLICATION: None. LEVEL OF SEDATION: Moderate with sedation length of about 45 minutes. PROCEDURE DESCRIPTION: After obtaining an informed consent, the patient was brought to the cardiac cardiac cath lab technologist. The right radial artery was cannulated using micropuncture technique, the micropuncture wire passed easily then I placed a 6-Bur[place] sheath at the right radial artery. After that, I gave the patient 2 mg of verapamil IA and 10,000 units of heparin IV. Selective right and left coronary angiogram performed using JR4 and JL3.5 catheters. After that, I did intervene on the left circumflex. Please see a separate paragraph. SELECTIVE CORONARY ANGIOGRAM: 1. The right coronary artery is a large caliber vessel, it is a dominant vessel. The RCA has mild disease only. Distally bifurcates into PDA and PLV branches. Both appeared to have mild disease only. 2. The left main is a large caliber vessel and it is a long left main. It bifurcates into LCX and LAD. 3. The LCX is a large caliber vessel. It is a nondominant vessel. The proximal left circumflex appeared to be angiographically normal. The mid circumflex has a lesion appeared to be in the range of 90%. The circumflex distally appeared to be angiographically normal. 4. The LAD: The proximal LAD appeared to be angiographically normal. The mid and distal LAD appeared to have mild disease only. The LAD gives rise into first and second diagonal branches, both appeared to be angiographically normal. PCI OF THE LEFT CIRCUMFLEX: 1. Anticoagulation was initiated with heparin with continuous ACT monitoring throughout the procedure. 2. After that, I did engage the left main using a 3.5 guide. From the get go, I did wire the left circumflex using 2 wires. A long whisper wire and short run-through wire. After that, balloon angioplasty of the mid left circumflex was performed using 2.0 x 12 mm balloon. After that, I was able to advance 2.5 x 12 mm stent where the stent was positioned under fluoroscopy guidance and deployed under fluoroscopic guidance after pulling the deidra wire out. The following angiogram showed excellent angiographic results and the procedure was completed without any complication. CONCLUSION: 1. Calcified right and left coronary systems. 2. Critical disease involving the mid left circumflex coronary artery. 3. Successful stenting of the mid left circumflex using 2.5 x 12 mm Xience SAMARA with an excellent angiographic results. POSTPROCEDURE MANAGEMENT: 1. Dual anti-platelet therapy. 2. Risk factor modifications. 3. Follow up with the patient. MMODL / IJN: [id number] /
[2020-04-04 04:21] LABS: Basophils # (A) 0.1 k/uL (0-0.2); Basophils % (A) 1 %; Eosinophils # (A) 0.6 k/uL (0-0.7); Eosinophils % (A) 4 %; HCT 45.6 % (39.0-53.0); HGB 14.4 gm/dL (13.0-17.5); Lymphocytes # (A) 2.9 k/uL (1.0-4.8); Lymphocytes % (A) 20 %; MCH 28.3 pg (25.0-35.0); MCHC 31.7 g/dL (31.0-37.0); MCV 89.4 fL (80.0-100.0); Mean Platelet Volume 6.7; Monocytes # (A) 0.8 k/uL (0-1.0); Monocytes % (A) 6 %; Neutrophils # (A) 9.9 k/uL (1.3-7.7); Neutrophils % (A) 69 %; Platelet Count 322 k/uL (150-450); RDW 14.1 % (11.5-15.5); WBC 14.5 k/uL (3.8-10.6)
[2020-04-04 04:32] LABS: Calcium 8.8 mg/dL (8.4-10.2); Potassium 3.7 mmol/L (3.5-5.1)
[2020-04-04 06:36] LABS: Glucose,Whole Blood 127 mg/dL (75-99)
[2020-04-04] MEDS: INSULIN ASPART (NovoLOG) 100 UNIT/ML VIAL SQ SCH ×4 (06:40→21:07)
[2020-04-04] MEDS: carvediloL 6.25 MG TAB PO SCH ×2 (06:48→17:24)
[2020-04-04] MEDS: AMIODARONE 300 MG in DEXTROSE 5% IN WATER 250 ML IV SCH ×2 (06:48)
[2020-04-04] MEDS ORDERED: Potassium Replacement Protocol 1 EACH MISC MISCELLANE PRN (07:15)
[2020-04-04] MEDS: SPIRONOLACTONE 25 MG TAB PO SCH (07:50)
[2020-04-04] MEDS: FUROSEMIDE 40 MG TAB PO SCH ×2 (07:50→17:25)
[2020-04-04] MEDS: ATORVASTATIN 80 MG TAB PO SCH (07:50)
[2020-04-04] MEDS: ASPIRIN 81 MG PO SCH (07:51)
[2020-04-04] MEDS: PRASUGREL 10 MG TAB PO SCH (07:51)
[2020-04-04] MEDS: lisinopriL 10 MG TAB PO SCH ×2 (07:51→21:08)
[2020-04-04] MEDS: APIXABAN 5 MG TAB PO SCH ×2 (07:51→21:06)
[2020-04-04] MEDS: MEXILETINE 150 MG CAP PO SCH ×3 (07:53→23:22)
[2020-04-04] MEDS: INSULIN DETEMIR (LEVEMIR) 100 UNIT/ML SYR SQ SCH ×2 (07:53→21:07)
[2020-04-04] MEDS ORDERED: POTASSIUM CHLORIDE ER 20 MEQ TAB.ER PO ONE (08:00)
--- NOTE | 2020-04-04 09:43 | P.PN ---
Subjective Progress Note Date: 04/04/20 Principal diagnosis: Nonsustained ventricular tachycardia This is a 64-year-old white male with history of paroxysmal atrial fibrillation, status post ablation, patient is maintained on anticoagulation therapy. He normally sees Dr. Phelps on a regular basis. Patient is also known to have a strong family history of premature coronary artery disease, father at age 55 from acute myocardial infarction. According to the patient his called EMS because she heard a noise, and she found her collapsed on the floor. Patient remembers that he passed out, but couldn't give any details. Upon EMS arrival, patient was noted to be in ventricular tachycardia, and he did have a pulse. Patient was placed on amiodarone, and converted to a normal sinus rhythm in the emergency room. Considering his presentation of ventricular tachycardia, patient was admitted to the ICU, and I was asked to see him on consultation. Presently the patient is in normal sinus rhythm, asymptomatic, denies any chest pain, denies any cough, no wheezing, no shortness of breath. Denies any palpitations. Denies any neurological symptoms. Patient states that he had previous cardiac catheterization back in 2006 done at [facility], and no cardiac catheterization since then. But he did have ablation supposedly in [address] Phelps. Patient was reevaluated today on 04/01/20, remains in the ICU, basically about the same, patient is asymptomatic, uses his CPAP at night. No further episodes of ventricular tachycardia documented in the last 24 hours. Patient is scheduled to undergo cardiac catheterization tomorrow. CBC is relatively normal electrocerebral normal renal profile is normal. On 04/02/2020 patient seen in follow-up in the intensive care unit, he is awake and alert, in no acute distress, he sitting up in the recliner, in no acute distress, denies any chest pain, denies any shortness of breath, lung sounds are clear, patient has chronic swelling in his right lower extremity chronic venous stasis changes which she states due to venous insufficiency in his right lower extremity, no warmth, no redness, no swelling in the left lower extremity, patient is sinus mechanism on the monitor. Rate is 68. Lung signs have been stable, no acute events overnight, the patient's Eliquis is on hold. She remains on oral amiodarone, and cardiology is following and plan on cardiac catheterization today. Right lower extremity ultrasound was negative for DVT. She continues on oral Lasix, and yesterday's chest x-ray shows clear lungs On 04/03/2020 patient seen in follow-up in the intensive care unit, he is been stable overnight, no recurrence of arrhythmias, in sinus mechanism this morning, with a controlled rate. No complaint of chest pain, no shortness of breath. Etiology is following, patient is supposed to be fitted for a life vest sometime today, his been wearing his CPAP unit from home at night, he is on oral amiodarone at 200 mg twice daily, oral anticoagulation in the form of Eliquis, nightly his IV is hep-locked, room air pulse ox is 94%, hemodynamically stable, he has had no fever or chills, today's labs have been reviewed, showing limited cell count 13.1, hemoglobin is 14.6, electrolytes and renal profile were unremarkable. No new chest x-ray. On 04/04/2020 patient seen in follow-up in intensive care unit. Patient had 9 episodes of ventricular tachycardia yesterday on 04/03/2020. He was restarted back on IV amiodarone per cardiology, he was given IV lidocaine. On 03/25/2020 pt had the cardiac catheterization with Dr. Ivan, per right radial artery approach, with successful stenting of the mid left circumflex coronary artery with a drug-eluting stent and reduction of stenosis from 90% down to 0. This morning he is in sinus mechanism, with a controlled rate, remains on amiodarone drip at 0.5 mg per hour, cardiology is planning in converting to oral amiodarone at a higher rate, he is on room air, sats 95%, hemodynamically stable, but no chest pain, no shortness of breath, patient has a life vest on. Last episode of ventricular tachycardia was at 6:00 in the afternoon on 04/03/2020. Lung sounds are clear. Patient is on oral anticoagulation and form of Eliquis, is on IV Kefzol, and oral Lasix, mild lower extremity edema. Nonpitting. Objective - Vital Signs Vital signs: Vital Signs Temp 98.2 F 04/04/20 08:00 Pulse 62 04/04/20 08:00 Resp 18 04/04/20 08:00 BP 152/79 04/04/20 08:00 Pulse Ox 95 04/04/20 08:00 Intake & Output 04/03/20 04/04/20 04/04/20 18:59 06:59 18:59 Intake Total 600 920.417 250 Output Total 1250 1350 Balance -650 -429.583 250 Intake: Intake, IV Titration 50 240.417 Amount Amiodarone 300 mg In 240.417 Dextrose 5% in Water 250 ml @ 0.5 MG/MIN 25 mls/hr IV .Q10H [facility] Rx#: [id number] ceFAZolin 1,000 mg In 50 Sodium Chloride 0.9% 50 ml @ 100 mls/hr IVPB Q8H [facility] Rx#:[id number] Oral 550 680 250 Output: Urine 1250 1350 Other: Voiding Method Urinal Urinal # Voids 1 # Bowel Movements 1 - Exam GENERAL EXAM: Alert, very pleasant, 64-year-old white male, currently on room air, with a pulse ox of 94% comfortable in no apparent distress. HEAD: Normocephalic/atraumatic. EYES: Normal reaction of pupils, equal size. Conjunctiva pink, sclera white. NOSE: Clear with pink turbinates. THROAT: No erythema or exudates. NECK: No masses, no JVD, no thyroid enlargement, no adenopathy. CHEST: No chest wall deformity. Symmetrical expansion. Patient has a life vest on LUNGS: Equal air entry with no crackles, wheeze, rhonchi or dullness. CVS: Regular rate and rhythm, normal S1 and S2, no gallops, no murmurs, no rubs ABDOMEN: Soft, nontender. No hepatosplenomegaly, normal bowel sounds, no guarding or rigidity. EXTREMITIES: No clubbing, chronic right lower extremity edema related to venous insufficiency, with the lower extremity Doppler negative for DVT, with the venous stasis changes to the skin no cyanosis, 2+ pulses and upper and lower extremities. MUSCULOSKELETAL: Muscle strength and tone normal. SPINE: No scoliosis or deformity SKIN: No rashes CENTRAL NERVOUS SYSTEM: Alert and oriented -3. No focal deficits, tone is normal in all 4 extremities. PSYCHIATRIC: Alert and oriented -3. Appropriate affect. Intact judgment and insight. - Labs CBC & Chem 7: 04/04/20 03:05 04/04/20 03:05 Labs: Abnormal Lab Results - Last 24 Hours (Table) 04/03/20 04/03/20 04/03/20 Range/Units 11:50 17:05 20:22 WBC (3.8-10.6) k/uL Neutrophils # (1.3-7.7) k/uL BUN (9-20) mg/dL Glucose (74-99) mg/dL POC Glucose (mg/dL) 201 H 265 H 273 H (75-99) mg/dL 04/04/20 04/04/20 04/04/20 Range/Units 03:05 03:05 06:35 WBC 14.5 H (3.8-10.6) k/uL Neutrophils # 9.9 H (1.3-7.7) k/uL BUN 25 H (9-20) mg/dL Glucose 110 H (74-99) mg/dL POC Glucose (mg/dL) 127 H (75-99) mg/dL Assessment and Plan Plan: Assessment: #1. Ventricular tachycardia, nonsustained, responded to amiodarone drip, patient is currently in sinus mechanism. Patient had recurrent episodes of ventricular tachycardia on 04/03/2020 total of 9 episodes, and required a lido bruce and IV amiodarone and had sinus converted to sinus mechanism. LifeVest on is currently #2. Coronary artery disease, with critical stenosis involving the mid left circumflex coronary artery, status post PCI and stenting with drug-eluting stent on on 04/02/2020 #3. Elevated troponins, cardiology is following #4. Episode of syncope secondary to ventricular tachycardia #5. History of paroxysmal atrial fibrillation #6. Morbid obesity #7. Chronic swelling in the right lower extremity related to venous insufficiency, with the lower to mid Doppler negative for DVT #8. Type 2 diabetes mellitus #9. MO history of premature coronary artery disease #10. Obstructive sleep apnea syndrome on CPAP therapy Plan: Continue monitoring in the intensive care unit, no recurrence of DVT overnight, remains on amiodarone drip, cardiac medications per cardiology recommendations, hemodynamically stable, no, but the chest pain or shortness of breath, LifeVest is on. Continue oral dose Lasix, and oral anticoagulation. We'll continue to follow closely with cardiology I performed a history & physical examination of the patient and discussed their management with my nurse practitioner, Madalyn Ohara. I reviewed the nurse practitioner's note and agree with the documented findings and plan of care. Lung sounds are positive for diminished breath sounds. The findings and the impression was discussed with the patient. I attest to the documentation by the nurse practitioner. Time with Patient: Less than 30
[2020-04-04 11:45] LABS: Glucose,Whole Blood 200 mg/dL (75-99)
--- NOTE | 2020-04-04 12:58 | PN ---
PROGRESS NOTE Mr. Angel is a 64-year-old male with a history of coronary disease, history of atrial fibrillation who presented with nonsustained ventricular tachycardia. He had an episode of ventricular tachycardia yesterday that recurrent and nonsustained. He has been started on IV amiodarone and received IV lidocaine bolus. He is feeling better today. He is denying any chest pain. He has his life vest. He denies any dizziness, palpitation, he denies any nausea. He continues to be on IV amiodarone, Eliquis 5 mg twice a day, aspirin 81 mg daily, Effient 10 mg a day, furosemide 40 mg twice a day, Coreg 6.25 mg twice a day, Lipitor 80 mg daily, mexiletine 150 mg q.8 hours and Zestril 10 mg twice a day. In addition to spironolactone 25 mg daily. PHYSICAL EXAMINATION: Blood pressure running in the 110s to 150 with a heart in the 60s. LUNGS: Clear. HEART: Regular rate and rhythm, S1, S2. No S3 with a systolic murmur, no diastolic murmur. ABDOMEN: Soft, obese, nontender. EXTREMITIES: No edema. IMPRESSION: 1. Recurrent episode of ventricular tachycardia. 2. Status post stenting of left circumflex. 3. Hypertension. 4. Hyperlipidemia. RECOMMENDATION: I will stop the IV amiodarone. I will add to his regimen amiodarone 400 mg twice a day. Will follow his EKG and his electrolytes. Will increase his activity. If he remains stable, I would expect he should be able to be discharged home in the next 24 hours to further undergo evaluation of his arrhythmia and possible ablation. MMODL / IJN: [id number] /
[2020-04-04 17:21] LABS: Glucose,Whole Blood 149 mg/dL (75-99)
--- NOTE | 2020-04-04 17:31 | P.PN ---
Subjective Progress Note Date: 04/04/20 Jossue Angel, is a 64-year-old male who presented to [facility] emergency room after a syncopal episode, at bedside stated that she found her unconscious, she called EMS, patient regained consciousness when EMS were in the house, he was able to stand up change his clothes and walk out to the front of the house, patient was noticed to be in ventricular tachycardia, he was started on IV amiodarone and was brought to the emergency room, patient was admitted to intensive care unit, pulmonary consultation and cardiology consultation were requested, patient regained normal sinus rhythm after he was started on IV amiodarone. Patient has a known history of cardiac arrhythmia, he has known history of paroxysmal atrial fibrillation he is followed by Dr. Lamb, he underwent cardiac ablation in the past, he was placed on oral amiodarone which he was taking 3 times weekly, he had a cardiac catheterization in 2006, he had cardiac ablation in 2016. Patient also has a known history of congestive heart failure, history of insulin-dependent diabetes mellitus, history of obstructive sleep apnea, history of hypertension, history of hyperlipidemia, and history of osteoarthritis. Patient was seen and examined in the intensive care unit, he is alert and oriented 3 in no apparent distress, he denies any symptoms at this time, there is no fever or chills no headache or dizziness no chest pain no shortness of breath no cough no nausea or vomiting no abdominal pain no diarrhea no blood in the stools, no burning with urination no frequency or urgency and no hematuria. On 04/01/2020 patient was seen and examined in the ICU he is alert and oriented 3 in no apparent distress there is no fever or chills no headache or dizziness no chest pain no shortness of breath no cough no nausea or vomiting no abdominal pain no diarrhea no burning with urination no frequency or urgency and no hematuria. Patient is scheduled for cardiac catheterization tomorrow. Patient is complaining of more swelling and erythema in the right lower extremity then usual there is a small scabbed wound in the right pretibial area at this time will start IV antibiotics cefazolin check right lower extremity Doppler and consult infectious disease. On 04/02/2020 patient was seen and examined in the ICU he is alert and oriented 3 in no apparent distress there is no fever or chills no headache or dizziness no chest pain no shortness of breath no cough no nausea or vomiting no abdominal pain no diarrhea no blood in the stools no burning with urination no frequency or urgency and no hematuria, he underwent cardiac catheterization today with angioplasty and stent placement on 04/03/2020 patient was seen and examined in the ICU, he is alert and oriented 3 sitting up at the edge of the bed, he had multiple episodes of V. tach this afternoon, he was restarted on amiodarone drip, he is being sent for life vest at this time, cardiology and pulmonary critical care following. Patient is f eeling tired otherwise denies any complaints at this time there is no fever or chills no headache or dizziness no chest pain no shortness of breath no cough no nausea or vomiting no abdominal pain no diarrhea no blood in the stools no burning with urination no frequency or urgency no hematuria On 04/04/2020 patient was seen and examined in the ICU he is alert and oriented 3 in no apparent distress, there is no fever or chills no headache or dizziness no chest pain no shortness of breath no cough no nausea or vomiting no abdominal pain no diarrhea no blood in the stools no burning with urination no frequency or urgency and no hematuria. Is still maintained on IV amiodarone drip. No new episodes of V. tach today Objective - Vital Signs Vital signs: Vital Signs Temp 98.0 F 04/04/20 16:00 Pulse 71 04/04/20 17:00 Resp 20 04/04/20 17:00 BP 161/82 04/04/20 17:00 Pulse Ox 94 L 04/04/20 16:00 Intake & Output 04/03/20 04/04/20 04/04/20 18:59 06:59 18:59 Intake Total 600 920.417 250 Output Total 1250 1350 800 Balance -650 -429.583 -550 Intake: Intake, IV Titration 50 240.417 Amount Amiodarone 300 mg In 240.417 Dextrose 5% in Water 250 ml @ 0.5 MG/MIN 25 mls/hr IV .Q10H DOUGLAS Rx#: [id number] ceFAZolin 1,000 mg In 50 Sodium Chloride 0.9% 50 ml @ 100 mls/hr IVPB Q8H DOUGLAS Rx#:[id number] Oral 550 680 250 Output: Urine 1250 1350 800 Other: Voiding Method Urinal Urinal # Voids 2 # Bowel Movements 1 - Exam In general patient is alert and oriented 3 in no apparent distress HEENT head normocephalic and atraumatic Neck is supple no JVD no goiter no lymphadenopathy Chest exam reveals a few scattered rhonchi no wheezing Cardiac exam reveals regular heart sounds S1 and S2 no gallops no murmurs Abdomen is soft nontender no organomegaly with normal bowel sounds Extremity exam reveals minimal edema on the left, the right lower extremity is significantly swollen, and is twice the size of the left lower extremity, patient stated that this is chronic for him and he was checked several times in the past and had no evidence of DVT. Neurology Exam reveals no gross focal deficit. - Labs CBC & Chem 7: 04/04/20 03:05 04/04/20 03:05 Labs: Abnormal Lab Results - Last 24 Hours (Table) 04/03/20 04/04/20 04/04/20 Range/Units 20:22 03:05 03:05 WBC 14.5 H (3.8-10.6) k/uL Neutrophils # 9.9 H (1.3-7.7) k/uL BUN 25 H (9-20) mg/dL Glucose 110 H (74-99) mg/dL POC Glucose (mg/dL) 273 H (75-99) mg/dL 04/04/20 04/04/20 04/04/20 Range/Units 06:35 11:44 17:19 WBC (3.8-10.6) k/uL Neutrophils # (1.3-7.7) k/uL BUN (9-20) mg/dL Glucose (74-99) mg/dL POC Glucose (mg/dL) 127 H 200 H 149 H (75-99) mg/dL Assessment and Plan Plan: 1. Ventricular tachycardia, patient converted to normal sinus rhythm on IV amiodarone drip 2. Syncopal episodes related to cardiac arrhythmia 3. History of paroxysmal atrial fibrillation 4. Insulin-dependent diabetes mellitus 5. Underlying history of obstructive sleep apnea maintained on CPAP 6. History of congestive heart failure. 7. Underlying history of hypertension 8. Underlying history of hyperlipidemia 9. Status post cardiac catheterization with angioplasty and stent placement today 10. recurrent episodes of V. tach on 04/03/2020 patient was restarted on amiodarone drip cardiology are following At this time patient is admitted to intensive care unit Pulmonary and cardiology consultation requested Echocardiogram ordered Lantus was reordered, continue sliding scale, continue to withhold metformin Will follow in a.m. possible discharge to home tomorrow
[2020-04-04 20:43] LABS: Glucose,Whole Blood 224 mg/dL (75-99)
[2020-04-04] MEDS: AMIODARONE 200 MG TAB PO SCH (21:06)
--- NOTE | 2020-04-05 01:15 | PN ---
PROGRESS NOTE DATE OF SERVICE: 04/04/2020 REASON FOR FOLLOWUP: Right lower extremity cellulitis. INTERVAL HISTORY: The patient is currently afebrile, has been breathing comfortably. Denies having any chest pain, shortness of breath or cough. No abdominal pain. Swelling of the right leg, no worsening. PHYSICAL EXAMINATION: Blood pressure 156/96, pulse of 59, temperature 96.7. He is 95% on room air. General description is an elderly male up in the chair in no distress. RESPIRATORY SYSTEM: Unlabored breathing, decreased intensity of breath sounds. No wheeze. HEART: S1, S2. Regular rate and rhythm. ABDOMEN: Soft, no tenderness. Right leg swelling, minimal redness, no drainage. LABS: Hemoglobin is 14.4, white count 14.5, BUN of 25, creatinine 1.18. Blood culture has been negative. DIAGNOSTIC IMPRESSION AND PLAN: Patient with elevated white count which is multifactorial with concern for possible cellulitis. Though covered with cefazolin white count slight worsening. We will monitor closely. Repeat blood work tomorrow. Continue supportive care. MMODL / IJN: [id number] / MTDD
[2020-04-05 06:15] LABS: Basophils # (A) 0.1 k/uL (0-0.2); Basophils % (A) 1 %; Eosinophils # (A) 0.7 k/uL (0-0.7); Eosinophils % (A) 5 %; HCT 46.5 % (39.0-53.0); HGB 14.6 gm/dL (13.0-17.5); Lymphocytes # (A) 2.9 k/uL (1.0-4.8); Lymphocytes % (A) 21 %; MCH 28.1 pg (25.0-35.0); MCHC 31.5 g/dL (31.0-37.0); Mean Platelet Volume 6.5; Monocytes # (A) 0.7 k/uL (0-1.0); Monocytes % (A) 5 %; Neutrophils # (A) 9.3 k/uL (1.3-7.7); Neutrophils % (A) 67 %; Platelet Count 318 k/uL (150-450); RBC 5.22 m/uL (4.30-5.90); RDW 14.3 % (11.5-15.5); WBC 13.9 k/uL (3.8-10.6)
[2020-04-05 06:35] LABS: Albumin 3.7 g/dL (3.5-5.0); C Reactive Protein 22.9 mg/L (<10.0); Calcium 8.6 mg/dL (8.4-10.2); Total Bilirubin 0.6 mg/dL (0.2-1.3); Total Protein 6.1 g/dL (6.3-8.2)
[2020-04-05 06:53] LABS: Glucose,Whole Blood 140 mg/dL (75-99)
[2020-04-05] MEDS: INSULIN ASPART (NovoLOG) 100 UNIT/ML VIAL SQ SCH ×2 (06:59→12:39)
[2020-04-05] MEDS: carvediloL 6.25 MG TAB PO SCH ×2 (06:59→16:38)
--- NOTE | 2020-04-05 07:21 | XR ---
EXAMINATION TYPE: XR chest 1V DATE OF EXAM: 04/05/2020 HISTORY: Shortness of breath. COMPARISON: 04/01/2020 TECHNIQUE: Single view of the chest is submitted. FINDINGS: Demonstrated are scattered senescent parenchymal change. There is no evidence for focal infiltrate. The heart is stable. Hilar and mediastinal structures are within normal limits. Degenerative changes are seen of the dorsal spine. IMPRESSION: 1. Chronic changes without evidence for acute pulmonary disease.
[2020-04-05] MEDS: APIXABAN 5 MG TAB PO SCH (08:07)
[2020-04-05] MEDS: MEXILETINE 150 MG CAP PO SCH ×2 (08:07→16:38)
[2020-04-05] MEDS: PRASUGREL 10 MG TAB PO SCH (08:08)
[2020-04-05] MEDS: FUROSEMIDE 40 MG TAB PO SCH ×2 (08:08→16:38)
[2020-04-05] MEDS: ATORVASTATIN 80 MG TAB PO SCH (08:08)
[2020-04-05] MEDS: INSULIN DETEMIR (LEVEMIR) 100 UNIT/ML SYR SQ SCH (08:09)
[2020-04-05] MEDS ORDERED: ASPIRIN 81 MG PO SCH (09:00)
[2020-04-05] MEDS: lisinopriL 10 MG TAB PO SCH (09:10)
[2020-04-05] MEDS: SPIRONOLACTONE 25 MG TAB PO SCH (09:10)
[2020-04-05] MEDS: AMIODARONE 200 MG TAB PO SCH (09:10)
[2020-04-05 10:04] LABS: Appearance,Urine Clear (Clear); Bilirubin,Urine Negative (Negative); Blood,Urine Negative (Negative); Color,Urine Yellow; Glucose,Urine (UA) Negative (Negative); Hyaline Casts,Urine 1 /lpf (0-2); Ketones,Urine Negative (Negative); Leukocyte Esterase,Urine Negative (Negative); Mucus,Urine Rare /hpf; Nitrite,Urine Negative (Negative); PH, Urine 5.5 (5.0-8.0); Protein,Urine 1+ (Negative); RBC,Urine 1 /hpf (0-5); Specific Gravity,Urine 1.025 (1.001-1.035); Squamous Epithelial Cell,Urine <1 /hpf (0-4); Urobilinogen,Urine <2.0 mg/dL (<2.0); WBC,Urine <1 /hpf (0-5)
--- NOTE | 2020-04-05 10:19 | P.PN ---
Subjective Progress Note Date: 04/05/20 Principal diagnosis: Nonsustained ventricular tachycardia This is a 64-year-old white male with history of paroxysmal atrial fibrillation, status post ablation, patient is maintained on anticoagulation therapy. He normally sees Dr. Phelps on a regular basis. Patient is also known to have a strong family history of premature coronary artery disease, father at age 55 from acute myocardial infarction. According to the patient his called EMS because she heard a noise, and she found her collapsed on the floor. Patient remembers that he passed out, but couldn't give any details. Upon EMS arrival, patient was noted to be in ventricular tachycardia, and he did have a pulse. Patient was placed on amiodarone, and converted to a normal sinus rhythm in the emergency room. Considering his presentation of ventricular tachycardia, patient was admitted to the ICU, and I was asked to see him on consultation. Presently the patient is in normal sinus rhythm, asymptomatic, denies any chest pain, denies any cough, no wheezing, no shortness of breath. Denies any palpitations. Denies any neurological symptoms. Patient states that he had previous cardiac catheterization back in 2006 done at [facility], and no cardiac catheterization since then. But he did have ablation supposedly in [address] Phelps. Patient was reevaluated today on 04/01/20, remains in the ICU, basically about the same, patient is asymptomatic, uses his CPAP at night. No further episodes of ventricular tachycardia documented in the last 24 hours. Patient is scheduled to undergo cardiac catheterization tomorrow. CBC is relatively normal electrocerebral normal renal profile is normal. On 04/02/2020 patient seen in follow-up in the intensive care unit, he is awake and alert, in no acute distress, he sitting up in the recliner, in no acute distress, denies any chest pain, denies any shortness of breath, lung sounds are clear, patient has chronic swelling in his right lower extremity chronic venous stasis changes which she states due to venous insufficiency in his right lower extremity, no warmth, no redness, no swelling in the left lower extremity, patient is sinus mechanism on the monitor. Rate is 68. Lung signs have been stable, no acute events overnight, the patient's Eliquis is on hold. She remains on oral amiodarone, and cardiology is following and plan on cardiac catheterization today. Right lower extremity ultrasound was negative for DVT. She continues on oral Lasix, and yesterday's chest x-ray shows clear lungs On 04/03/2020 patient seen in follow-up in the intensive care unit, he is been stable overnight, no recurrence of arrhythmias, in sinus mechanism this morning, with a controlled rate. No complaint of chest pain, no shortness of breath. Etiology is following, patient is supposed to be fitted for a life vest sometime today, his been wearing his CPAP unit from home at night, he is on oral amiodarone at 200 mg twice daily, oral anticoagulation in the form of Eliquis, nightly his IV is hep-locked, room air pulse ox is 94%, hemodynamically stable, he has had no fever or chills, today's labs have been reviewed, showing limited cell count 13.1, hemoglobin is 14.6, electrolytes and renal profile were unremarkable. No new chest x-ray. On 04/04/2020 patient seen in follow-up in intensive care unit. Patient had 9 episodes of ventricular tachycardia yesterday on 04/03/2020. He was restarted back on IV amiodarone per cardiology, he was given IV lidocaine. On 03/25/2020 pt had the cardiac catheterization with Dr. Ivan, per right radial artery approach, with successful stenting of the mid left circumflex coronary artery with a drug-eluting stent and reduction of stenosis from 90% down to 0. This morning he is in sinus mechanism, with a controlled rate, remains on amiodarone drip at 0.5 mg per hour, cardiology is planning in converting to oral amiodarone at a higher rate, he is on room air, sats 95%, hemodynamically stable, but no chest pain, no shortness of breath, patient has a life vest on. Last episode of ventricular tachycardia was at 6:00 in the afternoon on 04/03/2020. Lung sounds are clear. Patient is on oral anticoagulation and form of Eliquis, is on IV Kefzol, and oral Lasix, mild lower extremity edema. Nonpitting. On 04/05/2020 patient seen in follow-up in the intensive care unit, patient has not had any arrhythmias in the last 24 hours, is currently in sinus mechanism, no acute issues overnight, he is on room pulse ox of 95%, hemodynamically stable, he is afebrile. No complaints of chest pain or shortness of breath. Today's chest x-ray shows chronic changes without evidence for acute pulmonary disease. Today's labs have been reviewed, showing limited cell count of 13.9, hemoglobin is 14.6, which was within normal limits BUN is 22 creatinine is 1.02. Lifevest could not be fitted to the patient, the [facility] brought out the largest vest that they had and it did not fit him very well. He remains on oral amiodarone 400 mg twice daily, oral anticoagulants in the form of Eliquis, Coreg, Cipro, Mexitil, Effient, and Aldactone. Cardiology is following and managing cardiac medications. Objective - Vital Signs Vital signs: Vital Signs Temp 97.8 F 04/05/20 08:00 Pulse 60 04/05/20 09:00 Resp 25 H 04/05/20 09:00 BP 140/76 04/05/20 09:00 Pulse Ox 95 04/05/20 08:00 Intake & Output 04/04/20 04/05/20 04/05/20 18:59 06:59 18:59 Intake Total 250 220 60 Output Total 800 1550 50 Balance -550 -1330 10 Weight 154.8 kg Intake: IV 220 60 normal saline KVO 220 60 Oral 250 Output: Urine 800 1550 50 Other: Voiding Method Urinal # Voids 2 0 # Bowel Movements 1 - Exam GENERAL EXAM: Alert, very pleasant, 64-year-old white male, currently on room air, with a pulse ox of 94% comfortable in no apparent distress. HEAD: Normocephalic/atraumatic. EYES: Normal reaction of pupils, equal size. Conjunctiva pink, sclera white. NOSE: Clear with pink turbinates. THROAT: No erythema or exudates. NECK: No masses, no JVD, no thyroid enlargement, no adenopathy. CHEST: No chest wall deformity. Symmetrical expansion. Patient has a life vest on LUNGS: Equal air entry with no crackles, wheeze, rhonchi or dullness. CVS: Regular rate and rhythm, normal S1 and S2, no gallops, no murmurs, no rubs ABDOMEN: Soft, nontender. No hepatosplenomegaly, normal bowel sounds, no guarding or rigidity. EXTREMITIES: No clubbing, chronic right lower extremity edema related to venous insufficiency, with the lower extremity Doppler negative for DVT, with the venous stasis changes to the skin no cyanosis, 2+ pulses and upper and lower extremities. MUSCULOSKELETAL: Muscle strength and tone normal. SPINE: No scoliosis or deformity SKIN: No rashes CENTRAL NERVOUS SYSTEM: Alert and oriented -3. No focal deficits, tone is normal in all 4 extremities. PSYCHIATRIC: Alert and oriented -3. Appropriate affect. Intact judgment and insight. - Labs CBC & Chem 7: 04/05/20 05:17 04/05/20 05:17 Labs: Abnormal Lab Results - Last 24 Hours (Table) 04/04/20 04/04/20 04/04/20 Range/Units 11:44 17:19 20:42 WBC (3.8-10.6) k/uL Neutrophils # (1.3-7.7) k/uL BUN (9-20) mg/dL Glucose (74-99) mg/dL POC Glucose (mg/dL) 200 H 149 H 224 H (75-99) mg/dL C-Reactive Protein (<10.0) mg/L Total Protein (6.3-8.2) g/dL Urine Protein (Negative) Urine Mucus (None) /hpf 04/05/20 04/05/20 04/05/20 Range/Units 05:17 05:17 06:50 WBC 13.9 H (3.8-10.6) k/uL Neutrophils # 9.3 H (1.3-7.7) k/uL BUN 22 H (9-20) mg/dL Glucose 143 H (74-99) mg/dL POC Glucose (mg/dL) 140 H (75-99) mg/dL C-Reactive Protein 22.9 H (<10.0) mg/L Total Protein 6.1 L (6.3-8.2) g/dL Urine Protein (Negative) Urine Mucus (None) /hpf 04/05/20 Range/Units 08:50 WBC (3.8-10.6) k/uL Neutrophils # (1.3-7.7) k/uL BUN (9-20) mg/dL Glucose (74-99) mg/dL POC Glucose (mg/dL) (75-99) mg/dL C-Reactive Protein (<10.0) mg/L Total Protein (6.3-8.2) g/dL Urine Protein 1+ H (Negative) Urine Mucus Rare H (None) /hpf Assessment and Plan Plan: Assessment: #1. Ventricular tachycardia, nonsustained, responded to amiodarone drip, patient is currently in sinus mechanism. Patient had recurrent episodes of ventricular tachycardia on 04/03/2020 total of 9 episodes, and required a lidocaine and IV amiodarone and had sinus converted to sinus mechanism. LifeVest could not be fitted due to patient's size #2. Coronary artery disease, with critical stenosis involving the mid left circumflex coronary artery, status post PCI and stenting with drug-eluting stent on on 04/02/2020 #3. Elevated troponins, cardiology is following #4. Episode of syncope secondary to ventricular tachycardia #5. History of paroxysmal atrial fibrillation #6. Morbid obesity #7. Chronic swelling in the right lower extremity related to venous insufficiency, with the lower to mid Doppler negative for DVT #8. Type 2 diabetes mellitus #9. IN history of premature coronary artery disease #10. Obstructive sleep apnea syndrome on CPAP therapy Plan: No recurrence of arrhythmia in the last 24 hours, antiarrhythmics and cardiac medications per cardiology recommendations, hemodynamically patient is stable, he could not be fitted for Lifevest due to his body habitus. We'll defer to cardiology for further recommendations in terms of Lifevest. No acute issues overnight, today's chest x-ray shows no acute process. From pulmonary/critical care perspective patient could probably be considered for transfer out of intensive care unit to stepdown unit. I performed a history & physical examination of the patient and discussed their management with my nurse practitioner, Madalyn Ohara. I reviewed the nurse practitioner's note and agree with the documented findings and plan of care. Lung sounds are positive for diminished breath sounds. The findings and the impression was discussed with the patient. I attest to the documentation by the nurse practitioner. Time with Patient: Less than 30
[2020-04-05 12:13] LABS: Glucose,Whole Blood 195 mg/dL (75-99)
[2020-04-05 13:26] VITALS: BMI 46.3
--- NOTE | 2020-04-05 14:35 | PN ---
PROGRESS NOTE Mr. Angel is a 64-year-old male who presented with nonsustained ventricular tachycardia, symptomatic, underwent a cardiac catheterization, was found to have a lesion in the circumflex that was stented, but he continued to have recurrent episode of ventricular tachycardia after. He is in sinus mechanism after the adjustment of the dose of the amiodarone . The patient has declined the LifeVest because of the fitting. He continues to be in sinus mechanism at this time. He has no chest pain. No dizziness. No palpitation. He has been ambulating in the room without difficulty. He denies any nausea or vomiting. He continues to be on amiodarone 400 mg twice a day, Eliquis 5 mg twice a day, aspirin once a day, carvedilol 6.25 mg twice a day, Lasix 40 mg twice a day, lisinopril 10 mg twice a day, mexiletine 150 mg q.8 hours and Effient 10 mg daily in addition to Aldactone 25 mg daily. PHYSICAL EXAMINATION: Blood pressure 119/60 with a heart in the 60s. LUNGS: Clear. HEART: Regular rate and rhythm, S1, S2. No S3. No rub with a systolic murmur. ABDOMEN: Soft, obese, nontender. EXTREMITIES: With chronic stasis with no significant edema. LAB DATA: BUN and creatinine 22 and 1.02. Hemoglobin of 14.6, white blood cells 13.9. IMPRESSION: 1. Episode of nonsustained ventricular tachycardia with cardiomyopathy, stable at this point, patient declined LifeVest. 2. Status post stenting of left circumflex. 3. History of hypertension. 4. Hyperlipidemia. 5. Obesity. 6. History of obstructive sleep apnea. 7. Prior history of atrial fibrillation, remains in sinus mechanism. RECOMMENDATION: From the cardiac standpoint, I will continue present therapy. Patient should be able to be discharged home today and followed as an outpatient with Dr. Lamb to undergo further cardiac evaluation. MMODL / IJN: [id number] /
[2020-04-05 14:54] VITALS: BP 154/77; TEMP 98.5
[2020-04-05 16:32] VITALS: PULSE 62; RESP 25
[2020-04-05 17:26] LABS: Glucose,Whole Blood 256 mg/dL (75-99)
--- NOTE | 2020-04-05 17:50 | P.DS ---
Providers Date of admission: 03/30/20 22:12 Expected date of discharge: 04/05/20 Attending physician: Jose Jaramillo Consults: 03/30/20 22:12 Consult Physician Routine Consulting Provider: Johnson Lamb Consult Reason/Comments: V. tach Do you want consulting provider notified?: Already Contacted Consult Physician Stat Consulting Provider: Laverne Norwood Consult Reason/Comments: V. tach Do you want consulting provider notified?: Already Contacted 04/01/20 11:03 Consult Physician Routine Consulting Provider: Varghese Richardson Consult Reason/Comments: right lower ext. cellulitis Do you want consulting provider notified?: Yes Primary care physician: Anna Rizvi [facility] Course: diagnosis on discharge: 1. Ventricular tachycardia, patient converted to normal sinus rhythm on IV amiodarone drip 2. Syncopal episodes related to cardiac arrhythmia 3. History of paroxysmal atrial fibrillation 4. Insulin-dependent diabetes mellitus 5. Underlying history of obstructive sleep apnea maintained on CPAP 6. History of congestive heart failure. 7. Underlying history of hypertension 8. Underlying history of hyperlipidemia 9. Status post cardiac catheterization with angioplasty and stent placement today 10. recurrent episodes of V. tach on 04/03/2020 patient was restarted on amiodarone drip cardiology are following, medication were adjusted by cardiology, patient was cleared for discharge he was given prescriptions by Dr. Anguiano, he will follow-up with Dr. Lamb as outpatient for further evaluation and treatment. 11. Right lower extremity cellulitis patient was maintained on IV antibiotic throughout this admission, he was evaluated by Dr. Richardson infectious disease and was cleared for discharge on oral antibiotic Augmentin. Hospital course: Jossue Angel, is a 64-year-old male who presented to [facility] emergency room after a syncopal episode, at bedside stated that she found her unconscious, she called EMS, patient regained consciousness when EMS were in the house, he was able to stand up change his clothes and walk out to the front of the house, patient was noticed to be in ventricular tachycardia, he was started on IV amiodarone and was brought to the emergency room, patient was admitted to intensive care unit, pulmonary consultation and cardiology consultation were requested, patient regained normal sinus rhythm after he was started on IV amiodarone. Patient has a known history of cardiac arrhythmia, he has known history of paroxysmal atrial fibrillation he is followed by Dr. Lamb, he underwent cardiac ablation in the past, he was placed on oral amiodarone which he was taking 3 times weekly, he had a cardiac catheterization in 2006, he had cardiac ablation in 2017. Patient also has a known history of congestive heart failure, history of insulin-dependent diabetes mellitus, history of obstructive sleep apnea, history of hypertension, history of hyperlipidemia, and history of osteoarthritis. Patient was seen and examined in the intensive care unit, he is alert and oriented 3 in no apparent distress, he denies any symptoms at this time, there is no fever or chills no headache or dizziness no chest pain no shortness of breath no cough no nausea or vomiting no abdominal pain no diarrhea no blood in the stools, no burning with urination no frequency or urgency and no hematuria. On 04/01/2020 patient was seen and examined in the ICU he is alert and oriented 3 in no apparent distress there is no fever or chills no headache or dizziness no chest pain no shortness of breath no cough no nausea or vomiting no abdominal pain no diarrhea no burning with urination no frequency or urgency and no hematuria. Patient is scheduled for cardiac catheterization tomorrow. Patient is complaining of more swelling and erythema in the right lower extremity then usual there is a small scabbed wound in the right pretibial area at this time will start IV antibiotics cefazolin check right lower extremity Doppler and consult infectious disease. On 04/02/2020 patient was seen and examined in the ICU he is alert and oriented 3 in no apparent distress there is no fever or chills no headache or dizziness no chest pain no shortness of breath no cough no nausea or vomiting no abdominal pain no diarrhea no blood in the stools no burning with urination no frequency or urgency and no hematuria, he underwent cardiac catheterization today with angioplasty and stent placement on 04/03/2020 patient was seen and examined in the ICU, he is alert and oriented 3 sitting up at the edge of the bed, he had multiple episodes of V. tach this afternoon, he was restarted on amiodarone drip, he is being sent for life vest at this time, cardiology and pulmonary critical care following. Patient is feeling tired otherwise denies any complaints at this time there is no fever or chills no headache or dizziness no chest pain no shortness of breath no cough no nausea or vomiting no abdominal pain no diarrhea no blood in the stools no burning with urination no frequency or urgency no hematuria On 04/04/2020 patient was seen and examined in the ICU he is alert and oriented 3 in no apparent distress, there is no fever or chills no headache or dizziness no chest pain no shortness of breath no cough no nausea or vomiting no abdominal pain no diarrhea no blood in the stools no burning with urination no frequency or urgency and no hematuria. Is still maintained on IV amiodarone drip. No new episodes of V. tach today on 04/05/2020 patient was seen and examined in the ICU he is alert and oriented 3 in no apparent distress he is sitting up in a chair, he was tried to be fitted repeatedly with a life progress unfortunately there was no life vest that fits his size, he was fitted twice however the vest was nonfunctioning well due to inability to sense his pulse due to his size eventually decision was made to proceed with discharging him without the life vest per cardiology, he would receive oral antibiotic in regard to his right lower extremity cellulitis, he will follow-up with Dr. Phelps for further evaluation and treatment of his abnormal heart rhythm. Patient was cleared by cardiology and by infectious disease and by critical care for discharge. Patient Condition at Discharge: Serious Plan - Discharge Summary New Discharge Prescriptions: New Amiodarone [Cordarone] 400 mg PO BID #120 tab carvediloL [Coreg] 6.25 mg PO BID-W/MEALS #180 tab Prasugrel [Effient] 10 mg PO DAILY #90 tab Furosemide [Lasix] 40 mg PO BID@0900,1600 #180 tab Atorvastatin [Lipitor] 80 mg PO QAM #90 tab Mexiletine [Mexitil] 150 mg PO Q8HR #90 cap lisinopriL [Zestril] 10 mg PO BID #180 tab Amoxic-Pot Clav 875-125Mg [Augmentin 875-125] 1 tab PO Q12HR #14 tab Amoxic-Pot Clav 875-125Mg [Augmentin 875-125] 1 each PO Q12HR tab Continue metFORMIN HCL 1,000 mg PO AC-BID Insulin Glargine,Hum.rec.anlog [Lantus Solostar] 60 unit SQ BID Apixaban [Eliquis] 5 mg PO BID #60 tab Aspirin EC [Ecotrin Low Dose] 81 mg PO BID Nitroglycerin Sl Tabs [Nitrostat] 0.4 mg SUBLINGUAL Q5M PRN tab PRN Reason: Chest Pain Insulin Lispro [humaLOG Kwikpen] See Protocol SQ AC-TID PRN PRN Reason: HIGH BLOOD SUGAR Insulin Lispro [humaLOG Kwikpen] 35 unit SQ AC-TID Acetaminophen Tab [Tylenol] 650 mg PO QAM PRN PRN Reason: Pain Ascorbic Acid [Vitamin C] 500 mg PO DAILY Changed Spironolactone [Aldactone] 25 mg PO DAILY #0 Discontinued Amiodarone [Cordarone] 100 mg PO MOWEFR Metoprolol Succinate [Toprol XL] 25 mg PO DAILY amLODIPine [Norvasc] 5 mg PO DAILY Furosemide [Lasix] 120 mg PO DAILY lisinopriL [Zestril] 40 mg PO HS Discharge Medication List Insulin Glargine,Hum.rec.anlog [Lantus Solostar] 60 unit SQ BID 10/18/16 [History] metFORMIN HCL 1,000 mg PO AC-BID 10/18/16 [History] Apixaban [Eliquis] 5 mg PO BID #60 tab 10/24/16 [Rx] Aspirin EC [Ecotrin Low Dose] 81 mg PO BID 02/26/17 [History] Nitroglycerin Sl Tabs [Nitrostat] 0.4 mg SUBLINGUAL Q5M PRN tab 02/28/17 [Rx] Acetaminophen Tab [Tylenol] 650 mg PO QAM PRN 03/30/20 [History] Ascorbic Acid [Vitamin C] 500 mg PO DAILY 03/30/20 [History] Insulin Lispro [humaLOG Kwikpen] 35 unit SQ AC-TID 03/30/20 [History] Insulin Lispro [humaLOG Kwikpen] See Protocol SQ AC-TID PRN 03/30/20 [History] Amiodarone [Cordarone] 400 mg PO BID #120 tab 04/05/20 [Rx] Amoxic-Pot Clav 875-125Mg [Augmentin 875-125] 1 each PO Q12HR tab 04/05/20 [Rx] Amoxic-Pot Clav 875-125Mg [Augmentin 875-125] 1 tab PO Q12HR #14 tab 04/05/20 [Rx] Atorvastatin [Lipitor] 80 mg PO QAM #90 tab 04/05/20 [Rx] Furosemide [Lasix] 40 mg PO BID@0900,1600 #180 tab 04/05/20 [Rx] Mexiletine [Mexitil] 150 mg PO Q8HR #90 cap 04/05/20 [Rx] Prasugrel [Effient] 10 mg PO DAILY #90 tab 04/05/20 [Rx] Spironolactone [Aldactone] 25 mg PO DAILY #0 04/05/20 [Rx] carvediloL [Coreg] 6.25 mg PO BID-W/MEALS #180 tab 04/05/20 [Rx] lisinopriL [Zestril] 10 mg PO BID #180 tab 04/05/20 [Rx] Follow up Appointment(s)/Referral(s): Johnson Lamb MD [STAFF PHYSICIAN] - 1 Week (You currently have an appointment set on 04/27/2020 @ 10am with Dr Lamb. A voicemail was left with Honey at the office to schedule a hospital follow up appointment within 1 week. If you have not received a call by the early afternoon (1 pm) of 04/06/2020 please contact the office. Thank you) Anna Rizvi MD [Primary Care Provider] - 04/10/20 1:30 pm (Your appointment will be with Daniel Burdick NP) Patient Instructions/Handouts: Supraventricular Tachycardia (DC), Cellulitis (DC), Foot Care for People with Diabetes (DC), Basic Carbohydrate Counting (DC), Managing Diabetes During Sick Days (DC), Diabetes and Your Skin (DC)
--- NOTE | 2020-04-05 18:03 | PN ---
PROGRESS NOTE DATE OF SERVICE: 04/05/2020 REASON FOR FOLLOW UP: Leukocytosis with question of right lower extremity cellulitis. Patient is currently afebrile. The patient is feeling better. Breathing comfortably. Denies having any chest pain. No shortness of breath. No cough. No abdominal pain. No diarrhea. PHYSICAL EXAMINATION: Blood pressure is 154/77, pulse of 74, temperature 98.5. General description is an elderly male up in the chair in no distress. Respiratory system: Unlabored breathing, clear to auscultation anteriorly. Heart S1, S2. Regular rate and rhythm. Abdomen soft and no tenderness. Right leg swelling and redness has decreased LAB: Hemoglobin 14.1, white count 13.9. CRP 2.9. Blood culture 0.12. DIAGNOSTIC IMPRESSION AND PLAN: Patient with leukocytosis with no obvious focus of infection with concern for right lower extremity cellulitis. He did have some chronic swelling, but ultrasound negative for DVT. Chest x-ray negative for pneumonia. We will give him a short course of oral Augmentin on discharge and close outpatient followup. MMODL / IJN: [id number] / NICO
[2020-04-05] MEDS ORDERED: AMOXIC-POT CLAV 875-125MG 1 EACH TAB PO SCH (21:00)
--- NOTE | 2020-04-06 15:01 | CDI ---
Documentation Clarification Form Date: 04/06/20 From: Angelica Pete CCS Phone: If you have a question about this query, please contact Rosy Keating, R And D Lab Technician at [phone] between 8am and 5pm. Admit Date: 03/30/20 Discharge Date:04/05/20 Patient Name: Jossue Angel Visit Number: [id number] ATTENTION: The Clinical Documentation Specialists (CDI) and [facility] Coding Staff appreciate your assistance in clarifying documentation. Please respond to the clarification below the line at the bottom and electronically sign. The CDI & [facility] Coding staff will review the response and follow-up if needed. Please note: Queries are made part of the Legal Health Record. If you have any questions, please contact the author of this message via ITS. Dear Dr. Gomez, Patient presented with troponin of: 0.052, 0.260 PN 04/03 documents: Mild troponin elevation could represent non ST-segment elevation myocardial infarction Patient history/risk factors: Morbid obesity BMI 46, V Tach, CHF, HTN, DM, AFIB, COPD Clinical indicators: Chest pain, Arrhythmia Vitals: BP 162/88, RR 24, MA 85, O2 Sat 95 Cath: The mid circumflex has a lesion appeared to be in the range of 90%. Successful stenting of the mid left circumflex using 2.5 x 12 mm Xience SAMARA with an excellent angiographic results Treatment: Heparin 1,000 unit/ml IV In your professional opinion, can you please specify the diagnosis, if any, indicated by the above clinical indicators and treatment? NSTEMI -Specific Site _INFERIOR____ -Specific Artery Chest pain -Cause if known Unstable Angina Elevated Troponin Other, please specify Unable to determine MTDD
--- NOTE | 2020-04-16 12:07 | CDI ---
Documentation Clarification Form Date: 04/16/20 From: Angelica Pete CCS Phone: If you have a question about this query, please contact Rosy Keating Car Escort at [phone] between 8am and 5pm. Admit Date: 03/30/20 Discharge Date:04/05/20 Patient Name: Jossue Angel Visit Number: [id number] ATTENTION: The Clinical Documentation Specialists (CDI) and [facility] Coding Staff appreciate your assistance in clarifying documentation. Please respond to the clarification below the line at the bottom and electronically sign. The CDI & [facility] Coding staff will review the response and follow-up if needed. Please note: Queries are made part of the Legal Health Record. If you have any questions, please contact the author of this message via ITS. Dear Dr. Gomez, The following has been documented in the response to elevated troponin query: NSTEMI -Specific Site _INFERIOR____ Patient presented with troponin of: 0.052, 0.260 PN 04/03 documents: Mild troponin elevation could represent non ST-segment elevation myocardial infarction History/Risk Factors: Morbid obesity BMI 46, V Tach, CHF, HTN, DM, AFIB, COPD Clinical Indicators: Chest pain, Arrhythmia Cath: The mid circumflex has a lesion appeared to be in the range of 90%. Successful stenting of the mid left circumflex using 2.5 x 12 mm Xience SAMARA with an excellent angiographic results Treatment: Heparin 1,000 unit/ml IV 04/02 Definition of Present on Admission (POA): A diagnosis present at the time the order for admission to inpatient status was written. For each diagnosis, documentation must be clear to determine if the condition was present at the time of the patients inpatient admission or developed during the hospital stay. Please clarify if NSTEMI was POA: __x__Y = Yes, the condition was present at the time of the order for inpatient admission. ____N = No, the condition was not present at the time of the order for inpatient admission. ____W = Clinically undetermined if the condition was present at the time of the order for inpatient admission. MTDD
== END 2020-04-05 17:57 | disposition home or self-care (01) | DRG 247 ==
LOC: EC 21:00 → 2SICU 22:12
PROVIDERS: ADMIT Internal Medicine; ATTEND Internal Medicine
PROC: 5A09457 Assistance with Respiratory Ventilation, 24-96 Consecutive Hours, Continuous Positive Airway Pressure (ICD-10-PCS; 2020-03-30)
PROC: 4A023N7 Measurement of Cardiac Sampling and Pressure, Left Heart, Percutaneous Approach (ICD-10-PCS; principal; 2020-04-02 12:15)
PROC: 027034Z Dilation of Coronary Artery, One Artery with Drug-eluting Intraluminal Device, Percutaneous Approach (ICD-10-PCS; principal; 2020-04-02 12:15)
PROC: B2111ZZ Fluoroscopy of Multiple Coronary Arteries using Low Osmolar Contrast (ICD-10-PCS; principal; 2020-04-02 12:15)
DX: I21.4 Non-ST elevation (NSTEMI) myocardial infarction (principal); I47.2 Ventricular tachycardia; I42.9 Cardiomyopathy, unspecified; L03.115 Cellulitis of right lower limb; Z68.42 Body mass index [BMI] 45.0-49.9, adult; I50.22 Chronic systolic (congestive) heart failure; I45.2 Bifascicular block; I11.0 Hypertensive heart disease with heart failure; E11.9 Type 2 diabetes mellitus without complications; I48.0 Paroxysmal atrial fibrillation; Z79.4 Long term (current) use of insulin; J44.9 Chronic obstructive pulmonary disease, unspecified; E66.01 Morbid (severe) obesity due to excess calories; E78.5 Hyperlipidemia, unspecified; M19.90 Unspecified osteoarthritis, unspecified site; G47.33 Obstructive sleep apnea (adult) (pediatric); I44.0 Atrioventricular block, first degree; I08.3 Combined rheumatic disorders of mitral, aortic and tricuspid valves; I25.10 Atherosclerotic heart disease of native coronary artery without angina pectoris; I87.2 Venous insufficiency (chronic) (peripheral); Z71.3 Dietary counseling and surveillance; Z79.899 Other long term (current) drug therapy; Z79.82 Long term (current) use of aspirin; Z79.01 Long term (current) use of anticoagulants; Z90.49 Acquired absence of other specified parts of digestive tract; Z98.890 Other specified postprocedural states; Z87.891 Personal history of nicotine dependence; Z82.49 Family history of ischemic heart disease and other diseases of the circulatory system
CPT/HCPCS: 36415; 71045; 80048; 80053; 80061; 81001; 83735; 84100; 84145; 84439; 84443; 84484; 85025; 85610; 85730; 86140; 93005; 93306; 93454; 96365; 96366; 96375; 99291

== ENCOUNTER → 2020-04-13 | Outpatient (CLI) | payer MEDICARE ==
--- NOTE | 2020-04-13 10:33 | XR ---
EXAMINATION TYPE: XR chest 2V DATE OF EXAM: 04/13/2020 COMPARISON: Chest x-ray days ago on older studies. HISTORY: Leukocytosis. Presurgical study, possible pneumonia. TECHNIQUE: Frontal and lateral views of the chest are obtained. FINDINGS: There is increasing opacity right lung base medially not silhouetting right heart border o r hemidiaphragm. Left lung is clear. The cardiac silhouette size remains within normal limits. The osseous structures are intact. IMPRESSION: New medial right basilar acute infiltrate. Progress study advised.
== END | disposition home or self-care (01) ==
LOC: RADXRMAIN 10:08
PROVIDERS: ATTEND Internal Medicine Clinical Cardiac Electrophysiology
DX: R91.8 Other nonspecific abnormal finding of lung field (principal); J18.9 Pneumonia, unspecified organism
CPT/HCPCS: 71046

== ENCOUNTER → 2020-04-23 | Outpatient (CLI) | payer MEDICARE ==
--- NOTE | 2020-04-23 12:19 | XR ---
EXAMINATION TYPE: XR chest 2V DATE OF EXAM: 04/23/2020 COMPARISON: 04/13/2020 HISTORY: 64-year-old male J15.9, unspecified bacterial pneumonia TECHNIQUE: Frontal and lateral views FINDINGS: The heart is upper limits of normal in size. Mild interstitial prominence likely technical. Prominent skinfold periphery of the left base. No consolidation or pleural effusion. IMPRESSION: No acute process seen.
== END | disposition home or self-care (01) ==
LOC: RADXRMAIN 10:05
PROVIDERS: ATTEND Family Medicine
DX: J15.9 Unspecified bacterial pneumonia (principal)
CPT/HCPCS: 71046

== ENCOUNTER → 2020-04-24 | Outpatient (CLI) | payer MEDICARE | END | disposition home or self-care (01) | LOC: CPPFTMAIN 11:48 | PROVIDERS: ATTEND Internal Medicine Clinical Cardiac Electrophysiology | DX: R06.02 Shortness of breath (principal); Z51.81 Encounter for therapeutic drug level monitoring | CPT/HCPCS: 94060; 94726; 94729 ==

== ENCOUNTER 2020-06-05 03:30 | Observation (INO) | payer MEDICARE ==
[2020-06-05] MEDS ORDERED: ACETAMINOPHEN TAB 500 MG TAB PO STA (03:57)
--- NOTE | 2020-06-05 03:58 | ED ---
Extremity Problem HPI - General Chief complaint: Extremity Problem,Nontraumatic Stated complaint: Fever Time Seen by Provider: 06/05/20 03:35 Source: patient Mode of arrival: ambulatory Limitations: no limitations - History of Present Illness Initial comments: The patient is a 65-year-old male past history of V. tach, diabetes, heart failure who presents emergency Department with reported fever. He is accompanied by his . She states that he had a temp of 109 at home was acting confused. Patient arrives alert and oriented. States that his temp was 102 and that he is not confused. He reports to redness, swelling and warmth to his right lower extremity for which she frequently gets infections in. Patient does have significant brawny edema to his right lower extremity which is chronic. He has not taken any thing for his fever. Fever started last night. Denies any other infectious signs to include cough, shortness of breath, abdominal pain. No changes in his bowel or bladder habits. No sick contacts with similar symptoms. Denies any back or flank pain. No other alleviating, precipitating or modifying factors - Related Data Home Medications Medication Instructions Recorded Confirmed Insulin Glargine,Hum.rec.anlog 60 unit SQ BID 10/18/16 04/13/20 [Lantus Solostar] metFORMIN HCL 1,000 mg PO AC-BID 10/18/16 04/13/20 Aspirin EC [Ecotrin Low Dose] 81 mg PO BID 02/26/17 04/13/20 Acetaminophen Tab [Tylenol] 650 mg PO QAM PRN 03/30/20 04/13/20 Ascorbic Acid [Vitamin C] 500 mg PO DAILY 03/30/20 04/13/20 Insulin Lispro [humaLOG Kwikpen] See Protocol SQ AC-TID PRN 03/30/20 04/13/20 Ascorbic Acid [Vitamin C] 500 mg PO DAILY 04/13/20 04/13/20 Previous Rx's Medication Instructions Recorded Apixaban [Eliquis] 5 mg PO BID #60 tab 10/24/16 Nitroglycerin Sl Tabs [Nitrostat] 0.4 mg SUBLINGUAL Q5M PRN tab 02/28/17 Amiodarone [Cordarone] 400 mg PO BID #120 tab 04/05/20 Atorvastatin [Lipitor] 80 mg PO QAM #90 tab 04/05/20 Furosemide [Lasix] 40 mg PO BID@0900,1600 #180 tab 04/05/20 Mexiletine [Mexitil] 150 mg PO Q8HR #90 cap 04/05/20 Prasugrel [Effient] 10 mg PO DAILY #90 tab 04/05/20 Spironolactone [Aldactone] 25 mg PO DAILY #0 04/05/20 carvediloL [Coreg] 6.25 mg PO BID-W/MEALS #180 tab 04/05/20 lisinopriL [Zestril] 10 mg PO BID #180 tab 04/05/20 Allergies Allergy/AdvReac Type Severity Reaction Status Date / Time No Known Allergies Allergy Verified 06/05/20 03:37 Review of Systems ROS Statement: Those systems with pertinent positive or pertinent negative responses have been documented in the HPI. ROS Other: All systems not noted in ROS Statement are negative. Past Medical History Past Medical History: Atrial Fibrillation, Heart Failure, COPD, Diabetes Mellitus, Hyperlipidemia, Hypertension, Osteoarthritis (OA), Sleep Apnea/CPAP/BIPAP Additional Past Medical History / Comment(s): CELLULITIS TO RLE, cpap See Dr House H&P for cardiac history. History of Any Multi-Drug Resistant Organisms: None Reported Past Surgical History: Ablation, Appendectomy, Heart Catheterization, Tonsillectomy Additional Past Surgical History / Comment(s): "Heart cath done for ablation" Past Anesthesia/Blood Transfusion Reactions: No Reported Reaction Additional Past Anesthesia/Blood Transfusion Reaction / Comment(s): grumpy after surgery Past Psychological History: No Psychological Hx Reported Smoking Status: Former smoker Past Alcohol Use History: None Reported Past Drug Use History: None Reported - Past Family History Mother Family Medical History: No Reported History Father Family Medical History: Myocardial Infarction (MO) General Exam Limitations: no limitations Course Vital Signs 06/05/20 06/05/20 06/05/20 03:35 03:45 03:57 Temperature 99.1 F 101.3 F H 100.8 F H Pulse Rate 88 85 82 Respiratory 18 20 18 Rate Blood Pressure 154/82 149/117 185/80 O2 Sat by Pulse 95 96 94 L Oximetry 06/05/20 04:35 Temperature Pulse Rate 68 Respiratory 20 Rate Blood Pressure 133/61 O2 Sat by Pulse 94 L Oximetry Medical Decision Making - Medical Decision Making Upon arrival patient is placed into room 1. A thorough history and physical exam was performed. Patient's chart is reviewed. Laboratory studies were conducted. He was started on 130 mL of fluid per hour because of his suspected sepsis. Patient does agree to be swabbed for Covid. Laboratory studies reveal a white count 22.1. Creatinine 1.2 and lactic acid 2.3. Patient was sent for an x-ray which demonstrates no signs of subcutaneous air. Patient was started on Vanco and Unasyn. I did recommend hospital admission for which the patient did agree to. He is currently awaiting a bed on the floor - Lab Data Result diagrams: 06/05/20 04:00 06/05/20 04:00 Lab Results 06/05/20 06/05/20 06/05/20 Range/Units 04:00 04:00 04:00 WBC 22.1 H (3.8-10.6) k/uL RBC 4.96 (4.30-5.90) m/uL Hgb 14.8 (13.0-17.5) gm/dL Hct 43.9 (39.0-53.0) % MCV 88.4 (80.0-100.0) fL MCH 29.8 (25.0-35.0) pg MCHC 33.7 (31.0-37.0) g/dL RDW 14.5 (11.5-15.5) % Plt Count 295 (150-450) k/uL MPV 6.7 Neutrophils % 89 % Lymphocytes % 4 % Monocytes % 4 % Eosinophils % 1 % Basophils % 1 % Neutrophils # 19.7 H (1.3-7.7) k/uL Lymphocytes # 0.9 L (1.0-4.8) k/uL Monocytes # 0.9 (0-1.0) k/uL Eosinophils # 0.2 (0-0.7) k/uL Basophils # 0.2 (0-0.2) k/uL PT 10.4 (9.0-12.0) sec INR 1.0 (<1.2) APTT 26.8 (22.0-30.0) sec Sodium 140 (137-145) mmol/L Potassium 3.5 (3.5-5.1) mmol/L Chloride 104 (98-107) mmol/L Carbon Dioxide 25 (22-30) mmol/L Anion Gap 11 mmol/L BUN 33 H (9-20) mg/dL Creatinine 1.29 H (0.66-1.25) mg/dL Est GFR (CKD-EPI)AfAm 66 (>60 ml/min/1.73 sqM) Est GFR (CKD-EPI)NonAf 57 (>60 ml/min/1.73 sqM) Glucose 125 H (74-99) mg/dL Plasma Lactic Acid Alan (0.7-2.0) mmol/L Calcium 9.1 (8.4-10.2) mg/dL Total Bilirubin 0.6 (0.2-1.3) mg/dL AST 20 (17-59) U/L ALT 23 (4-49) U/L Alkaline Phosphatase 77 (38-126) U/L Creatine Kinase 144 (55-170) U/L C-Reactive Protein 23.3 H (<10.0) mg/L Total Protein 6.8 (6.3-8.2) g/dL Albumin 4.2 (3.5-5.0) g/dL 06/05/20 Range/Units 04:00 WBC (3.8-10.6) k/uL RBC (4.30-5.90) m/uL Hgb (13.0-17.5) gm/dL Hct (39.0-53.0) % MCV (80.0-100.0) fL MCH (25.0-35.0) pg MCHC (31.0-37.0) g/dL RDW (11.5-15.5) % Plt Count (150-450) k/uL MPV Neutrophils % % Lymphocytes % % Monocytes % % Eosinophils % % Basophils % % Neutrophils # (1.3-7.7) k/uL Lymphocytes # (1.0-4.8) k/uL Monocytes # (0-1.0) k/uL Eosinophils # (0-0.7) k/uL Basophils # (0-0.2) k/uL PT (9.0-12.0) sec INR (<1.2) APTT (22.0-30.0) sec Sodium (137-145) mmol/L Potassium (3.5-5.1) mmol/L Chloride (98-107) mmol/L Carbon Dioxide (22-30) mmol/L Anion Gap mmol/L BUN (9-20) mg/dL Creatinine (0.66-1.25) mg/dL Est GFR (CKD-EPI)AfAm (>60 ml/min/1.73 sqM) Est GFR (CKD-EPI)NonAf (>60 ml/min/1.73 sqM) Glucose (74-99) mg/dL Plasma Lactic Acid Alan 2.3 H* (0.7-2.0) mmol/L Calcium (8.4-10.2) mg/dL Total Bilirubin (0.2-1.3) mg/dL AST (17-59) U/L ALT (4-49) U/L Alkaline Phosphatase (38-126) U/L Creatine Kinase (55-170) U/L C-Reactive Protein (<10.0) mg/L Total Protein (6.3-8.2) g/dL Albumin (3.5-5.0) g/dL - EKG Data EKG Comments: EKG demonstrates normal since rhythm with a ventricular rate of 82. IL interval 204. QRS 128. QTC of 518. No acute ST segment elevations or depressions Disposition Clinical Impression: Febrile illness, acute, Cellulitis of right leg, Leukocytosis Disposition: ADMITTED IP TO THIS [facility] Condition: Stable Is patient prescribed a controlled substance at d/c from ED?: No Referrals: Anna Rizvi MD [Primary Care Provider] - 1-2 days Decision to Admit Reason: Admit from EC Decision Date: 06/05/20 Decision Time: 04:59
[2020-06-05] MEDS: SODIUM CHLORIDE 0.9% 1,000 ML IV SCH ×2 (04:08→11:20)
[2020-06-05 04:33] LABS: Basophils # (A) 0.2 k/uL (0-0.2); Basophils % (A) 1 %; Eosinophils # (A) 0.2 k/uL (0-0.7); Eosinophils % (A) 1 %; HCT 43.9 % (39.0-53.0); HGB 14.8 gm/dL (13.0-17.5); Lymphocytes # (A) 0.9 k/uL (1.0-4.8); Lymphocytes % (A) 4 %; MCH 29.8 pg (25.0-35.0); MCHC 33.7 g/dL (31.0-37.0); MCV 88.4 fL (80.0-100.0); Mean Platelet Volume 6.7; Monocytes # (A) 0.9 k/uL (0-1.0); Monocytes % (A) 4 %; Neutrophils # (A) 19.7 k/uL (1.3-7.7); Neutrophils % (A) 89 %; Platelet Count 295 k/uL (150-450); RBC 4.96 m/uL (4.30-5.90); RDW 14.5 % (11.5-15.5); WBC 22.1 k/uL (3.8-10.6)
[2020-06-05] MEDS ORDERED: AMPICILLIN-SULBACTAM 3 GM in SODIUM CHLORIDE 0.9% 100 ML IVPB STA (04:43)
[2020-06-05] MEDS ORDERED: VANCOMYCIN IV PER PHARMACY 1 EACH MISC MISCELLANE PRN (04:44)
[2020-06-05] MEDS ORDERED: VANCOMYCIN 2,500 MG in SODIUM CHLORIDE 0.9% 500 ML 500 ML IVPB STA (04:46)
[2020-06-05 04:48] LABS: Albumin 4.2 g/dL (3.5-5.0); C Reactive Protein 23.3 mg/L (<10.0); Calcium 9.1 mg/dL (8.4-10.2); Potassium 3.5 mmol/L (3.5-5.1); Total Bilirubin 0.6 mg/dL (0.2-1.3); Total Protein 6.8 g/dL (6.3-8.2)
[2020-06-05 04:50] LABS: Partial Thromboplastin Time 26.8 sec (22.0-30.0); Prothrombin Time 10.4 sec (9.0-12.0)
[2020-06-05] MEDS ORDERED: IBUPROFEN 400 MG TAB PO PRN (04:59)
[2020-06-05] MEDS ORDERED: NALOXONE 0.4 MG/ML 1 ML VIAL IV PRN (04:59)
[2020-06-05] MEDS ORDERED: ACETAMINOPHEN TAB 325 MG TAB PO PRN ×2 (04:59→10:20)
[2020-06-05 05:07] VITALS: RESP 18
--- NOTE | 2020-06-05 06:24 | XR ---
EXAM: XR Right Tibia and Fibula, 2 Views CLINICAL HISTORY: ITS.REASON XR Reason: infection TECHNIQUE: Frontal and lateral views of the right tibia and fibula. COMPARISON: No relevant prior studies available. FINDINGS: Bones/joints: No acute fracture. No dislocation. Soft tissues: Diffuse soft tissue swelling multiple calcifications throughout the soft tissues. Mild vascular calcification. IMPRESSION: Diffuse soft tissue swelling multiple calcifications throughout the soft tissues.
[2020-06-05 08:01] LABS: Glucose,Whole Blood 85 mg/dL (75-99)
[2020-06-05] MEDS ORDERED: NITROGLYCERIN SL TABS 0.4 MG TAB SUBLINGUAL PRN (10:20)
[2020-06-05 10:28] VITALS: TEMP 96.9
[2020-06-05] MEDS ORDERED: APIXABAN 5 MG TAB PO SCH (10:30)
[2020-06-05] MEDS ORDERED: carvediloL 6.25 MG TAB PO SCH (10:30)
[2020-06-05] MEDS ORDERED: SPIRONOLACTONE 25 MG TAB PO SCH (10:30)
[2020-06-05] MEDS ORDERED: ASPIRIN 81 MG PO SCH (10:30)
[2020-06-05] MEDS ORDERED: PRASUGREL 10 MG TAB PO SCH (10:30)
[2020-06-05] MEDS ORDERED: AMIODARONE 100 MG TAB PO SCH (10:30)
[2020-06-05 11:18] VITALS: BP 160/72; PULSE 67
[2020-06-05 13:56] LABS: Glucose,Whole Blood 161 mg/dL (75-99)
--- NOTE | 2020-06-05 14:57 | P.HPIM ---
History of Present Illness H&P Date: 06/05/20 Jossue Angel, is a 65-year-old male who presented to [facility] emergency room with febrile illness temperature on presentation was 102 patient also had erythema tenderness and swelling in the right lower extremity he was evaluated in emergency room his presentation was compatible with right lower extremity cellulitis with possible sepsis he was started on IV vancomycin, infectious disease consultation was requested white blood count on presentation was elevated at 22.1 BUN was slightly elevated at 33 creatinine 1.29 Covid 19 testing PCR was negative x-ray also right lower extremity revealed soft tissue swelling with multiple calcifications throughout the soft tissues no evidence of osteomyelitis. Patient has a known history of hypertension, hyperlipidemia, [id number] pendent diabetes mellitus, coronary artery disease, and history of chronic atrial fibrillation. On review of systems patient is alert and oriented at this time he was confused at the time of presentation his fever has subsided there is no chills no headache or dizziness no chest pain no shortness of breath no cough no nausea or vomiting no abdominal pain no diarrhea no blood in the stools no burning with urination no frequency or urgency no hematuria. Past Medical History Past Medical History: Atrial Fibrillation, Heart Failure, COPD, Diabetes Mellitus, Hyperlipidemia, Hypertension, Osteoarthritis (OA), Sleep Apnea/CPAP/BIPAP Additional Past Medical History / Comment(s): CELLULITIS TO RLE, cpap See Dr House H&P for cardiac history. History of Any Multi-Drug Resistant Organisms: None Reported Past Surgical History: Ablation, Appendectomy, Heart Catheterization, Tonsill ectomy Additional Past Surgical History / Comment(s): "Heart cath done for ablation" Past Anesthesia/Blood Transfusion Reactions: No Reported Reaction Additional Past Anesthesia/Blood Transfusion Reaction / Comment(s): grumpy after surgery Past Psychological History: No Psychological Hx Reported Smoking Status: Former smoker Past Alcohol Use History: None Reported Past Drug Use History: None Reported - Past Family History Mother Family Medical History: No Reported History Father Family Medical History: Myocardial Infarction ([place]) Medications and Allergies Home Medications Medication Instructions Recorded Confirmed Type Insulin Glargine,Hum.rec.anlog 60 unit SQ BID 10/18/16 06/05/20 History [Lantus Solostar] metFORMIN HCL 1,000 mg PO AC-BID 10/18/16 06/05/20 History Apixaban [Eliquis] 5 mg PO BID #60 tab 10/24/16 06/05/20 Rx Aspirin EC [Ecotrin Low Dose] 81 mg PO BID 02/26/17 06/05/20 History Nitroglycerin Sl Tabs [Nitrostat] 0.4 mg SUBLINGUAL Q5M PRN tab 02/28/17 06/05/20 Rx Acetaminophen Tab [Tylenol] 650 mg PO QAM PRN 03/30/20 06/05/20 History Insulin Lispro [humaLOG Kwikpen] See Protocol SQ AC-TID PRN 03/30/20 06/05/20 History Atorvastatin [Lipitor] 80 mg PO QAM #90 tab 04/05/20 06/05/20 Rx Furosemide [Lasix] 40 mg PO BID@0900,1600 #180 tab 04/05/20 06/05/20 Rx Mexiletine [Mexitil] 150 mg PO Q8HR #90 cap 04/05/20 06/05/20 Rx Prasugrel [Effient] 10 mg PO DAILY #90 tab 04/05/20 06/05/20 Rx Spironolactone [Aldactone] 25 mg PO DAILY #0 04/05/20 06/05/20 Rx carvediloL [Coreg] 6.25 mg PO BID-W/MEALS #180 tab 04/05/20 06/05/20 Rx lisinopriL [Zestril] 10 mg PO BID #180 tab 04/05/20 06/05/20 Rx Ascorbic Acid [Vitamin C] 500 mg PO DAILY 04/13/20 06/05/20 History Amiodarone [Cordarone] 100 mg PO DAILY 06/05/20 06/05/20 History Cephalexin [Keflex] 500 mg PO Q6HR 15 Days #60 cap 06/05/20 Rx Allergies Allergy/AdvReac Type Severity Reaction Status Date / Time No Known Allergies Allergy Verified 06/05/20 07:21 Physical Exam Vitals: Vital Signs Temp Pulse Resp BP Pulse Ox 06/05/20 05:06 99.0 F 75 18 144/74 96 06/05/20 04:35 68 20 133/61 94 L 06/05/20 03:57 100.8 F H 82 18 185/80 94 L 06/05/20 03:45 101.3 F H 85 20 149/117 96 06/05/20 03:35 99.1 F 88 18 154/82 95 Intake and Output 06/04/20 06/05/20 06/05/20 22:59 06:59 14:59 Other: Weight 154.221 kg In general patient is alert and oriented 3 in no apparent distress HEENT head normocephalic and atraumatic Neck is supple no JVD no goiter no lymphadenopathy Chest exam reveals a few scattered crackles no wheezing Cardiac exam reveals irregular heart sounds no murmurs no gallops Abdomen is soft nontender no organomegaly with normal bowel sounds Extremity exam reveals bilateral lower extremity edema right more than left there is erythema and a brownish discoloration in the right pretibial area no open ulcers were detected Logical examination reveals no gross focal deficit Results CBC & Chem 7: 06/05/20 04:00 06/05/20 04:00 Labs: Abnormal Lab Results - Last 24 Hours (Table) 06/05/20 06/05/20 06/05/20 Range/Units 04:00 04:00 04:00 WBC 22.1 H (3.8-10.6) k/uL Neutrophils # 19.7 H (1.3-7.7) k/uL Lymphocytes # 0.9 L (1.0-4.8) k/uL BUN 33 H (9-20) mg/dL Creatinine 1.29 H (0.66-1.25) mg/dL Glucose 125 H (74-99) mg/dL Plasma Lactic Acid Alan 2.3 H* (0.7-2.0) mmol/L C-Reactive Protein 23.3 H (<10.0) mg/L Assessment and Plan Plan: 1. Right lower extremity cellulitis 2. Sepsis as evidenced by elevated white blood count of 22.1 on presentation, elevated lactic acid of 2.3 on presentation, elevated temperature of 102 and mental status changes with confusion on presentation. 3. Underlying history of diabetes mellitus 4. Underlying history of hypertension 5. Underlying history of atrial fibrillation heart rate is well-controlled 6. Underlying history of coronary artery disease At this time home medication reviewed and reordered Patient was started on IV vancomycin in the emergency room will continue at this time awaiting culture results Consultation for infectious disease was requested awaiting input Will follow closely during this admission
--- NOTE | 2020-06-05 15:01 | P.DS ---
Providers Date of admission: 06/05/20 04:59 Expected date of discharge: 06/05/20 Attending physician: Jose Jaramillo Primary care physician: Anna Rizvi [facility] Course: Diagnosis on discharge: 1. Right lower extremity cellulitis 2. Sepsis as evidenced by elevated white blood count of 22.1 on presentation, elevated lactic acid of 2.3 on presentation, elevated temperature of 102 and mental status changes with confusion on presentation. 3. Underlying history of diabetes mellitus 4. Underlying history of hypertension 5. Underlying history of atrial fibrillation heart rate is well-controlled 6. Underlying history of coronary artery disease Hospital course: Jossue Angel, is a 65-year-old male who presented to [facility] emergency room with febrile illness temperature on presentation was 102 patient also had erythema tenderness and swelling in the right lower extremity he was evaluated in emergency room his presentation was compatible with right lower extremity cellulitis with possible sepsis he was started on IV vancomycin, infectious disease consultation was requested white blood count on presentation was elevated at 22.1 BUN was slightly elevated at 33 creatinine 1.29 Covid 19 testing PCR was negative x-ray also right lower extremity revealed soft tissue swelling with multiple calcifications throughout the soft tissues no evidence of osteomyelitis. Patient has a known history of hypertension, hyperlipidemia, [id number] diabetes mellitus, coronary artery disease, and history of chronic atrial fibrillation. On review of systems patient is alert and oriented at this time he was confused at the time of presentation his fever has subsided there is no chills no headache or dizziness no chest pain no shortness of breath no cough no nausea or vomiting no abdominal pain no diarrhea no blood in the stools no burning with urination no frequency or urgency no hematuria. On 06/05/2020 patient was seen and examined in the in emergency room, there has been no open beds in the hospital and patient has been waiting in emergency room bed, he tested negative for Covid, however he overheard that in the rooms Him that was multiple Covid cases and that made him very upset and somewhat agitated, patient wanted to leave the hospital AGAINST MEDICAL ADVICE, he was advised strongly to stay and see infectious disease consult and but he refused, at this point I gave him a prescription for Keflex 500 mg every 6 hours for 15 days, I told him to follow-up with his primary care physician in the next 2-3 days, I told him to return to emergency room if his started having elevated temperature again or mental status changes again. Patient understands the gravity of his diagnosis of sepsis, however he is adamant on going home at this time. Patient Condition at Discharge: Stable Plan - Discharge Summary Discharge Rx Participant: Yes New Discharge Prescriptions: New Cephalexin [Keflex] 500 mg PO Q6HR 15 Days #60 cap Continue metFORMIN HCL 1,000 mg PO AC-BID Insulin Glargine,Hum.rec.anlog [Lantus Solostar] 60 unit SQ BID Apixaban [Eliquis] 5 mg PO BID #60 tab Aspirin EC [Ecotrin Low Dose] 81 mg PO BID Nitroglycerin Sl Tabs [Nitrostat] 0.4 mg SUBLINGUAL Q5M PRN tab PRN Reason: Chest Pain Insulin Lispro [humaLOG Kwikpen] See Protocol SQ AC-TID PRN PRN Reason: HIGH BLOOD SUGAR Acetaminophen Tab [Tylenol] 650 mg PO QAM PRN PRN Reason: Pain carvediloL [Coreg] 6.25 mg PO BID-W/MEALS #180 tab Prasugrel [Effient] 10 mg PO DAILY #90 tab Furosemide [Lasix] 40 mg PO BID@0900,1600 #180 tab Atorvastatin [Lipitor] 80 mg PO QAM #90 tab Mexiletine [Mexitil] 150 mg PO Q8HR #90 cap lisinopriL [Zestril] 10 mg PO BID #180 tab Spironolactone [Aldactone] 25 mg PO DAILY #0 Ascorbic Acid [Vitamin C] 500 mg PO DAILY Amiodarone [Cordarone] 100 mg PO DAILY Discharge Medication List Insulin Glargine,Hum.rec.anlog [Lantus Solostar] 60 unit SQ BID 10/18/16 [History] metFORMIN HCL 1,000 mg PO AC-BID 10/18/16 [History] Apixaban [Eliquis] 5 mg PO BID #60 tab 10/24/16 [Rx] Aspirin EC [Ecotrin Low Dose] 81 mg PO BID 02/26/17 [History] Nitroglycerin Sl Tabs [Nitrostat] 0.4 mg SUBLINGUAL Q5M PRN tab 02/28/17 [Rx] Acetaminophen Tab [Tylenol] 650 mg PO QAM PRN 03/30/20 [History] Insulin Lispro [humaLOG Kwikpen] See Protocol SQ AC-TID PRN 03/30/20 [History] Atorvastatin [Lipitor] 80 mg PO QAM #90 tab 04/05/20 [Rx] Furosemide [Lasix] 40 mg PO BID@0900,1600 #180 tab 04/05/20 [Rx] Mexiletine [Mexitil] 150 mg PO Q8HR #90 cap 04/05/20 [Rx] Prasugrel [Effient] 10 mg PO DAILY #90 tab 04/05/20 [Rx] Spironolactone [Aldactone] 25 mg PO DAILY #0 04/05/20 [Rx] carvediloL [Coreg] 6.25 mg PO BID-W/MEALS #180 tab 04/05/20 [Rx] lisinopriL [Zestril] 10 mg PO BID #180 tab 04/05/20 [Rx] Ascorbic Acid [Vitamin C] 500 mg PO DAILY 04/13/20 [History] Amiodarone [Cordarone] 100 mg PO DAILY 06/05/20 [History] Cephalexin [Keflex] 500 mg PO Q6HR 15 Days #60 cap 06/05/20 [Rx] Follow up Appointment(s)/Referral(s): Anna Rizvi MD [Primary Care Provider] - 1-2 days
[2020-06-05] MEDS ORDERED: FUROSEMIDE 40 MG TAB PO SCH (16:00)
[2020-06-05] MEDS ORDERED: MEXILETINE 150 MG CAP PO SCH (16:00)
[2020-06-05] MEDS ORDERED: metFORMIN 500 MG TAB PO SCH (17:30)
[2020-06-05] MEDS ORDERED: INSULIN DETEMIR (LEVEMIR) 100 UNIT/ML SYR SQ SCH (21:00)
[2020-06-05] MEDS ORDERED: lisinopriL 10 MG TAB PO SCH (21:00)
[2020-06-05] MEDS ORDERED: VANCOMYCIN 2,250 MG in SODIUM CHLORIDE 0.9% 500 ML 500 ML IVPB SCH (22:00)
[2020-06-06] MEDS ORDERED: ASCORBIC ACID 500 MG TAB PO SCH (09:00)
[2020-06-06] MEDS ORDERED: ATORVASTATIN 80 MG TAB PO SCH (09:00)
== END 2020-06-05 15:51 ==
LOC: EC 03:30 → 1SOBS 04:59
PROVIDERS: ADMIT Internal Medicine; ATTEND Internal Medicine
DX: A41.9 Sepsis, unspecified organism (principal); L03.115 Cellulitis of right lower limb; E11.628 Type 2 diabetes mellitus with other skin complications; I11.0 Hypertensive heart disease with heart failure; I50.9 Heart failure, unspecified; E78.5 Hyperlipidemia, unspecified; I48.20 Chronic atrial fibrillation, unspecified; J44.9 Chronic obstructive pulmonary disease, unspecified; G47.30 Sleep apnea, unspecified; M19.90 Unspecified osteoarthritis, unspecified site; I25.10 Atherosclerotic heart disease of native coronary artery without angina pectoris; R79.89 Other specified abnormal findings of blood chemistry; M61.9 Calcification and ossification of muscle, unspecified; R45.1 Restlessness and agitation; Z20.828 Contact with and (suspected) exposure to other viral communicable diseases; Z79.01 Long term (current) use of anticoagulants; Z79.02 Long term (current) use of antithrombotics/antiplatelets; Z79.82 Long term (current) use of aspirin; Z79.4 Long term (current) use of insulin; Z79.899 Other long term (current) drug therapy; Z99.89 Dependence on other enabling machines and devices; Z90.49 Acquired absence of other specified parts of digestive tract; Z98.890 Other specified postprocedural states; Z86.79 Personal history of other diseases of the circulatory system; Z87.891 Personal history of nicotine dependence; Z82.49 Family history of ischemic heart disease and other diseases of the circulatory system
CPT/HCPCS: 96365; 96366; 96367; 99284; 93005; 80053; 82550; 83605; 85025; 85610; 85730; 86140; 87040; 87635; 73590; G0378; J3370; J0295

== ENCOUNTER 2020-06-25 16:58 | Inpatient (IN) | payer MEDICARE ==
[2020-06-25] MEDS ORDERED: ACETAMINOPHEN TAB 500 MG TAB PO STA (17:46)
--- NOTE | 2020-06-25 17:50 | ED ---
General Adult HPI - General Chief complaint: Extremity Injury, Lower Stated complaint: Leg redness Time Seen by Provider: 06/25/20 17:25 Source: patient, RN notes reviewed Mode of arrival: EMS Limitations: no limitations - History of Present Illness Initial comments: Patient is a pleasant 65-year-old male presenting to the emergency Department with right lower leg redness and swelling. Onset of symptoms was a few days ago. Patient was in the hospital a week or so ago for this and started on antibiotics. Symptoms did improve however now it started to worsen again. Patient states there is some diffuse discomfort. Patient states he was recently started on blood thinners, 2 - Related Data Home Medications Medication Instructions Recorded Confirmed Insulin Glargine,Hum.rec.anlog 60 unit SQ BID 10/18/16 06/25/20 [Lantus Solostar] metFORMIN HCL 1,000 mg PO AC-BID 10/18/16 06/25/20 Aspirin EC [Ecotrin Low Dose] 81 mg PO BID 02/26/17 06/25/20 Acetaminophen Tab [Tylenol] 650 mg PO QAM PRN 03/30/20 06/25/20 Insulin Lispro [humaLOG Kwikpen] See Protocol SQ AC-TID PRN 03/30/20 06/25/20 Ascorbic Acid [Vitamin C] 500 mg PO DAILY 04/13/20 06/25/20 Amiodarone [Cordarone] 100 mg PO DAILY 06/05/20 06/25/20 Previous Rx's Medication Instructions Recorded Apixaban [Eliquis] 5 mg PO BID #60 tab 10/24/16 Nitroglycerin Sl Tabs [Nitrostat] 0.4 mg SUBLINGUAL Q5M PRN tab 02/28/17 Atorvastatin [Lipitor] 80 mg PO QAM #90 tab 04/05/20 Furosemide [Lasix] 40 mg PO BID@0900,1600 #180 tab 04/05/20 Mexiletine [Mexitil] 150 mg PO Q8HR #90 cap 04/05/20 Prasugrel [Effient] 10 mg PO DAILY #90 tab 04/05/20 Spironolactone [Aldactone] 25 mg PO DAILY #0 04/05/20 carvediloL [Coreg] 6.25 mg PO BID-W/MEALS #180 tab 04/05/20 lisinopriL [Zestril] 10 mg PO BID #180 tab 04/05/20 Allergies Allergy/AdvReac Type Severity Reaction Status Date / Time No Known Allergies Allergy Verified 06/25/20 19:10 Review of Systems ROS Statement: Those systems with pertinent positive or pertinent negative responses have been documented in the HPI. ROS Other: All systems not noted in ROS Statement are negative. Constitutional: Reports: fever Eyes: Denies: eye pain ENT: Denies: ear pain Respiratory: Denies: cough Cardiovascular: Denies: palpitations Endocrine: Denies: fatigue Gastrointestinal: Denies: abdominal pain Genitourinary: Denies: dysuria Musculoskeletal: Denies: back pain Skin: Reports: as per HPI, rash Neurological: Denies: weakness Past Medical History Past Medical History: Atrial Fibrillation, Heart Failure, COPD, Diabetes Mellitus, Hyperlipidemia, Hypertension, Osteoarthritis (OA), Sleep Apnea/CPAP/BIPAP Additional Past Medical History / Comment(s): CELLULITIS TO RLE, cpap See Dr House H&P for cardiac history. History of Any Multi-Drug Resistant Organisms: None Reported Past Surgical History: Ablation, Appendectomy, Heart Catheterization, Tonsillectomy Additional Past Surgical History / Comment(s): "Heart cath done for ablation" Past Anesthesia/Blood Transfusion Reactions: No Reported Reaction Additional Past Anesthesia/Blood Transfusion Reaction / Comment(s): grumpy after surgery Past Psychological History: No Psychological Hx Reported Smoking Status: Former smoker Past Alcohol Use History: None Reported Past Drug Use History: None Reported - Past Family History Mother Family Medical History: No Reported History Father Family Medical History: Myocardial Infarction ([place]) General Exam Limitations: no limitations General appearance: alert, in no apparent distress Head exam: Present: atraumatic Eye exam: Present: normal appearance Neck exam: Present: normal inspection Respiratory exam: Present: normal lung sounds bilaterally Cardiovascular Exam: Present: regular rate, normal rhythm GI/Abdominal exam: Present: soft. Absent: tenderness Extremities exam: Present: other (Right lower leg with swelling and erythema and warmth.) Neurological exam: Present: alert Psychiatric exam: Present: normal affect, normal mood Skin exam: Present: erythema (Right lower leg) Course Vital Signs 06/25/20 06/25/20 17:09 19:31 Temperature 101.5 F H 100.1 F H Pulse Rate 87 Respiratory 18 Rate Blood Pressure 158/81 O2 Sat by Pulse 96 Oximetry - Reevaluation(s) Reevaluation #1: 06/25/20 19:59 Age and does meet sepsis criteria diagnosed at 1952. Blood culture and lactic acid ordered. IV antibiotics will be ordered. EKG Findings - EKG Comments: EKG Findings:: Normal sinus rhythm 86. For screening AV block with a 202 PA. QRS 126. QRS 402. QT is a 41. Left axis. Nonspecific interventricular block. No acute ST change. Medical Decision Making - Medical Decision Making Patient reevaluated and updated. Case discussed with Dr. Jaramillo, who will admit covering for Dr. clinton. He does request consult with infectious disease. - Lab Data Result diagrams: 06/25/20 18:17 06/25/20 18:17 Lab Results 06/25/20 06/25/20 06/25/20 Range/Units 18:17 18:17 18:17 WBC 24.2 H (3.8-10.6) k/uL RBC 4.91 (4.30-5.90) m/uL Hgb 14.9 (13.0-17.5) gm/dL Hct 44.2 (39.0-53.0) % MCV 90.0 (80.0-100.0) fL MCH 30.4 (25.0-35.0) pg MCHC 33.7 (31.0-37.0) g/dL RDW 14.9 (11.5-15.5) % Plt Count 319 (150-450) k/uL MPV 6.6 Neutrophils % 92 % Lymphocytes % 3 % Monocytes % 3 % Eosinophils % 1 % Basophils % 1 % Neutrophils # 22.4 H (1.3-7.7) k/uL Lymphocytes # 0.6 L (1.0-4.8) k/uL Monocytes # 0.8 (0-1.0) k/uL Eosinophils # 0.2 (0-0.7) k/uL Basophils # 0.1 (0-0.2) k/uL PT 10.6 (9.0-12.0) sec INR 1.0 (<1.2) APTT 26.1 (22.0-30.0) sec Sodium 140 (137-145) mmol/L Potassium 3.6 (3.5-5.1) mmol/L Chloride 106 (98-107) mmol/L Carbon Dioxide 26 (22-30) mmol/L Anion Gap 8 mmol/L BUN 20 (9-20) mg/dL Creatinine 1.17 (0.66-1.25) mg/dL Est GFR (CKD-EPI)AfAm 74 (>60 ml/min/1.73 sqM) Est GFR (CKD-EPI)NonAf 64 (>60 ml/min/1.73 sqM) Glucose 89 (74-99) mg/dL Plasma Lactic Acid Alan (0.7-2.0) mmol/L Calcium 9.0 (8.4-10.2) mg/dL Total Bilirubin 0.7 (0.2-1.3) mg/dL AST 24 (17-59) U/L ALT 27 (4-49) U/L Alkaline Phosphatase 101 (38-126) U/L Total Protein 7.1 (6.3-8.2) g/dL Albumin 4.2 (3.5-5.0) g/dL 06/25/20 Range/Units 18:17 WBC (3.8-10.6) k/uL RBC (4.30-5.90) m/uL Hgb (13.0-17.5) gm/dL Hct (39.0-53.0) % MCV (80.0-100.0) fL MCH (25.0-35.0) pg MCHC (31.0-37.0) g/dL RDW (11.5-15.5) % Plt Count (150-450) k/uL MPV Neutrophils % % Lymphocytes % % Monocytes % % Eosinophils % % Basophils % % Neutrophils # (1.3-7.7) k/uL Lymphocytes # (1.0-4.8) k/uL Monocytes # (0-1.0) k/uL Eosinophils # (0-0.7) k/uL Basophils # (0-0.2) k/uL PT (9.0-12.0) sec INR (<1.2) APTT (22.0-30.0) sec Sodium (137-145) mmol/L Potassium (3.5-5.1) mmol/L Chloride (98-107) mmol/L Carbon Dioxide (22-30) mmol/L Anion Gap mmol/L BUN (9-20) mg/dL Creatinine (0.66-1.25) mg/dL Est GFR (CKD-EPI)AfAm (>60 ml/min/1.73 sqM) Est GFR (CKD-EPI)NonAf (>60 ml/min/1.73 sqM) Glucose (74-99) mg/dL Plasma Lactic Acid Alan 1.7 (0.7-2.0) mmol/L Calcium (8.4-10.2) mg/dL Total Bilirubin (0.2-1.3) mg/dL AST (17-59) U/L ALT (4-49) U/L Alkaline Phosphatase (38-126) U/L Total Protein (6.3-8.2) g/dL Albumin (3.5-5.0) g/dL Critical Care Time Critical Care Time: Yes Total Critical Care Time: 32 Disposition Clinical Impression: Cellulitis of right leg, Sepsis Disposition: ADMITTED IP TO THIS [facility] Condition: Serious Is patient prescribed a controlled substance at d/c from ED?: No Referrals: Anna Rizvi MD [Primary Care Provider] - 1-2 days Decision Time: 20:00
[2020-06-25] MEDS: SODIUM CHLORIDE 0.9% 1,000 ML IV SCH (18:15)
[2020-06-25 18:27] LABS: Basophils # (A) 0.1 k/uL (0-0.2); Basophils % (A) 1 %; Eosinophils # (A) 0.2 k/uL (0-0.7); Eosinophils % (A) 1 %; HCT 44.2 % (39.0-53.0); HGB 14.9 gm/dL (13.0-17.5); Lymphocytes # (A) 0.6 k/uL (1.0-4.8); Lymphocytes % (A) 3 %; MCH 30.4 pg (25.0-35.0); MCHC 33.7 g/dL (31.0-37.0); Mean Platelet Volume 6.6; Monocytes # (A) 0.8 k/uL (0-1.0); Monocytes % (A) 3 %; Neutrophils # (A) 22.4 k/uL (1.3-7.7); Neutrophils % (A) 92 %; Platelet Count 319 k/uL (150-450); RBC 4.91 m/uL (4.30-5.90); RDW 14.9 % (11.5-15.5); WBC 24.2 k/uL (3.8-10.6)
[2020-06-25 18:41] LABS: Albumin 4.2 g/dL (3.5-5.0); Potassium 3.6 mmol/L (3.5-5.1); Total Bilirubin 0.7 mg/dL (0.2-1.3); Total Protein 7.1 g/dL (6.3-8.2)
[2020-06-25 18:47] LABS: Partial Thromboplastin Time 26.1 sec (22.0-30.0); Prothrombin Time 10.6 sec (9.0-12.0)
[2020-06-25] MEDS ORDERED: AMPICILLIN-SULBACTAM 3 GM in SODIUM CHLORIDE 0.9% 100 ML IVPB STA (20:00)
[2020-06-25] MEDS ORDERED: VANCOMYCIN IV PER PHARMACY 1 EACH MISC MISCELLANE PRN (20:00)
[2020-06-25] MEDS ORDERED: NALOXONE 0.4 MG/ML 1 ML VIAL IV PRN (20:01)
[2020-06-25 20:05] LABS: Appearance,Urine Clear (Clear); Bilirubin,Urine Negative (Negative); Blood,Urine Negative (Negative); Color,Urine Yellow; Glucose,Urine (UA) Negative (Negative); Ketones,Urine Negative (Negative); Leukocyte Esterase,Urine Negative (Negative); Nitrite,Urine Negative (Negative); Protein,Urine Trace (Negative); Specific Gravity,Urine 1.014 (1.001-1.035); Urobilinogen,Urine <2.0 mg/dL (<2.0)
[2020-06-25] MEDS ORDERED: VANCOMYCIN 2,500 MG in SODIUM CHLORIDE 0.9% 500 ML 500 ML IVPB ONE (20:30)
[2020-06-25] MEDS ORDERED: VANCOMYCIN 2,250 MG in SODIUM CHLORIDE 0.9% 500 ML 500 ML IVPB ONE (20:30)
[2020-06-25] MEDS: AMPICILLIN-SULBACTAM 1.5 GM in SODIUM CHLORIDE 0.9% 50 ML IVPB SCH (23:15)
[2020-06-25] MEDS ORDERED: NITROGLYCERIN SL TABS 0.4 MG TAB SUBLINGUAL PRN (23:39)
[2020-06-26 01:50] LABS: Glucose,Whole Blood 126 mg/dL (75-99)
[2020-06-26] MEDS: SODIUM CHLORIDE 0.9% 1,000 ML IV SCH ×3 (02:07→17:14)
[2020-06-26] MEDS: AMPICILLIN-SULBACTAM 1.5 GM in SODIUM CHLORIDE 0.9% 50 ML IVPB SCH ×2 (05:07→14:42)
[2020-06-26 07:12] LABS: Glucose,Whole Blood 137 mg/dL (75-99)
[2020-06-26] MEDS: ACETAMINOPHEN TAB 325 MG TAB PO PRN (07:22)
[2020-06-26] MEDS: lisinopriL 10 MG TAB PO SCH ×2 (07:23→21:47)
[2020-06-26] MEDS: PRASUGREL 10 MG TAB PO SCH (07:23)
[2020-06-26] MEDS: carvediloL 6.25 MG TAB PO SCH ×2 (07:24→17:11)
[2020-06-26] MEDS: INSULIN ASPART (NovoLOG) 100 UNIT/ML VIAL SQ SCH ×4 (07:24→21:48)
[2020-06-26] MEDS: metFORMIN 500 MG TAB PO SCH ×2 (07:24→17:11)
[2020-06-26] MEDS: AMIODARONE 200 MG TAB PO SCH (07:24)
[2020-06-26] MEDS: FUROSEMIDE 40 MG TAB PO SCH ×2 (07:24→17:11)
[2020-06-26] MEDS: APIXABAN 5 MG TAB PO SCH ×2 (07:24→21:47)
[2020-06-26 09:16] LABS: Basophils # (A) 0.1 k/uL (0-0.2); Basophils % (A) 0 %; Eosinophils % (A) 0 %; Lymphocytes # (A) 0.8 k/uL (1.0-4.8); Lymphocytes % (A) 3 %; MCH 29.7 pg (25.0-35.0); MCHC 32.6 g/dL (31.0-37.0); MCV 91.2 fL (80.0-100.0); Mean Platelet Volume 6.7; Monocytes # (A) 0.5 k/uL (0-1.0); Monocytes % (A) 2 %; Neutrophils # (A) 23.6 k/uL (1.3-7.7); Neutrophils % (A) 94 %; Platelet Count 300 k/uL (150-450); RBC 4.71 m/uL (4.30-5.90); RDW 15.3 % (11.5-15.5); WBC 25.2 k/uL (3.8-10.6)
[2020-06-26] MEDS: ASCORBIC ACID 500 MG TAB PO SCH (10:09)
[2020-06-26] MEDS: ATORVASTATIN 80 MG TAB PO SCH (10:09)
[2020-06-26] MEDS: ASPIRIN 81 MG PO SCH ×2 (10:09→21:47)
[2020-06-26] MEDS: INSULIN DETEMIR (LEVEMIR) 100 UNIT/ML SYR SQ SCH ×2 (10:09→21:48)
[2020-06-26] MEDS: SPIRONOLACTONE 25 MG TAB PO SCH (10:09)
[2020-06-26] MEDS: MEXILETINE 150 MG CAP PO SCH ×2 (10:10→17:11)
[2020-06-26] MEDS: VANCOMYCIN 2,250 MG in SODIUM CHLORIDE 0.9% 500 ML 500 ML IVPB SCH ×2 (10:10→21:48)
[2020-06-26 11:17] LABS: Glucose,Whole Blood 175 mg/dL (75-99)
--- NOTE | 2020-06-26 13:00 | P.HPIM ---
History of Present Illness H&P Date: 06/26/20 Jossue Angel, is a 65-year-old male who presented to [facility] emergency room with a chief complaint of worsening swelling erythema and tenderness of his right lower extremity. Patient reports that symptoms started a few days ago and has had previous hospitalization for lower extremity cellulitis. Patient reports he was in the hospital approximately a week ago and was started on antibiotics and discharged home at this time patient reports symptoms did improve but then worsened again over the past few days. Patient has a past medical history of atrial fibrillation in which she is maintained on eliquis, previous cardiac stent maintained on Effient. Additional medical his tory includes diabetes mellitus type 2 hyperlipidemia hypertension osteoarthritis sleep apnea, reoccurring cellulitis to right lower extremity and ex-smoker. At this time patient has been started on Unasyn and vancomycin. Infectious disease service is consulted. Blood cultures ordered. Patient did have elevated temp and white count. At this time patient denies chest pain or shortness of breath. Patient denies nausea vomiting or diarrhea. Patient denies any urinary burning or frequency Review of Systems please refer to HPI otherwise unremarkable Past Medical History Past Medical History: Atrial Fibrillation, Heart Failure, COPD, Diabetes Mellitus, Hyperlipidemia, Hypertension, Osteoarthritis (OA), Sleep Apnea/CPAP/B IPAP Additional Past Medical History / Comment(s): CELLULITIS TO RLE, cpap See Dr House H&P for cardiac history. History of Any Multi-Drug Resistant Organisms: None Reported Past Surgical History: Ablation, Appendectomy, Heart Catheterization, Tonsillectomy Additional Past Surgical History / Comment(s): "Heart cath done for ablation" Past Anesthesia/Blood Transfusion Reactions: No Reported Reaction Additional Past Anesthesia/Blood Transfusion Reaction / Comment(s): grumpy after surgery Past Psychological History: No Psychological Hx Reported Smoking Status: Former smoker Past Alcohol Use History: None Reported Additional Past Alcohol Use History / Comment(s): cigar once or twice a day Past Drug Use History: None Reported - Past Family History Mother Family Medical History: No Reported History Father Family Medical History: Myocardial Infarction ([place]) Medications and Allergies Home Medications Medication Instructions Recorded Confirmed Type Insulin Glargine,Hum.rec.anlog 60 unit SQ BID 10/18/16 06/25/20 History [Lantus Solostar] metFORMIN HCL 1,000 mg PO AC-BID 10/18/16 06/25/20 History Apixaban [Eliquis] 5 mg PO BID #60 tab 10/24/16 06/25/20 Rx Aspirin EC [Ecotrin Low Dose] 81 mg PO BID 02/26/17 06/25/20 History Nitroglycerin Sl Tabs [Nitrostat] 0.4 mg SUBLINGUAL Q5M PRN tab 02/28/17 06/25/20 Rx Acetaminophen Tab [Tylenol] 650 mg PO QAM PRN 03/30/20 06/25/20 History Insulin Lispro [humaLOG Kwikpen] See Protocol SQ AC-TID PRN 03/30/20 06/25/20 History Atorvastatin [Lipitor] 80 mg PO QAM #90 tab 04/05/20 06/25/20 Rx Furosemide [Lasix] 40 mg PO BID@0900,1600 #180 tab 04/05/20 06/25/20 Rx Mexiletine [Mexitil] 150 mg PO Q8HR #90 cap 04/05/20 06/25/20 Rx Prasugrel [Effient] 10 mg PO DAILY #90 tab 04/05/20 06/25/20 Rx Spironolactone [Aldactone] 25 mg PO DAILY #0 04/05/20 06/25/20 Rx carvediloL [Coreg] 6.25 mg PO BID-W/MEALS #180 tab 04/05/20 06/25/20 Rx lisinopriL [Zestril] 10 mg PO BID #180 tab 04/05/20 06/25/20 Rx Ascorbic Acid [Vitamin C] 500 mg PO DAILY 04/13/20 06/25/20 History Amiodarone [Cordarone] 100 mg PO DAILY 06/05/20 06/25/20 History Allergies Allergy/AdvReac Type Severity Reaction Status Date / Time No Known Allergies Allergy Verified 06/25/20 19:10 Physical Exam Vitals: Vital Signs Temp Pulse Pulse Pulse Resp BP BP 06/26/20 10:09 99.1 F 06/26/20 08:29 97.8 F 06/26/20 07:32 103.0 F H 06/26/20 07:00 103.1 F H 80 22 120/67 06/26/20 02:00 97.9 F 77 17 134/88 06/25/20 21:30 98.2 F 82 16 128/65 06/25/20 19:31 100.1 F H 06/25/20 17:09 101.5 F H 87 18 158/81 Pulse Ox 06/26/20 10:09 06/26/20 08:29 06/26/20 07:32 06/26/20 07:00 94 L 06/26/20 02:00 95 06/25/20 21:30 96 06/25/20 19:31 06/25/20 17:09 96 Intake and Output 06/25/20 06/26/20 06/26/20 22:59 06:59 14:59 Other: Voiding Method Toilet # Voids 2 Weight 149.685 kg In general patient is alert and oriented 3 in no apparent distress HEENT head normocephalic and atraumatic Neck is supple no JVD no goiter no lymphadenopathy Chest exam reveals clear respiratory sounds no crackles no wheezing Cardiac exam reveals regular heart sounds S1 and S2 no gallops no murmurs Abdomen is soft nontender no organomegaly with normal bowel sounds Extremity exam reveals right lower extremity erythema and swelling and tenderness in the pretibial area Neurological examination reveals no gross focal neurological deficit Results CBC & Chem 7: 06/26/20 08:20 06/25/20 18:17 Labs: Abnormal Lab Results - Last 24 Hours (Table) 06/25/20 06/25/20 06/26/20 Range/Units 18:17 18:17 01:48 WBC 24.2 H (3.8-10.6) k/uL Neutrophils # 22.4 H (1.3-7.7) k/uL Lymphocytes # 0.6 L (1.0-4.8) k/uL POC Glucose (mg/dL) 126 H (75-99) mg/dL Urine Protein Trace H (Negative) 06/26/20 06/26/20 Range/Units 07:10 08:20 WBC 25.2 H (3.8-10.6) k/uL Neutrophils # 23.6 H (1.3-7.7) k/uL Lymphocytes # 0.8 L (1.0-4.8) k/uL POC Glucose (mg/dL) 137 H (75-99) mg/dL Urine Protein (Negative) Assessment and Plan Assessment: 1. Cellulitis to right lower extremity and sepsis present on admission. Blood cultures have been ordered. Patient started on vancomycin and Unasyn. Infectious disease consulted 2. History of reoccurring cellulitis to right lower extremity 3. Proximal atrial fibrillation patient maintained on eliquis 4. History of coronary artery disease with stent patient maintained on brilianta 5. History of essential hypertension 6. Sleep apnea. Maintained on home CPAP machine DVT prophylaxis eliquis. GI prophylaxis Pepcid Infectious disease consulted Blood cultures ordered Patient maintained on Unasyn and vancomycin Plan: 1. Right lower extremity cellulitis 2. Underlying history of diabetes mellitus 3. Underlying history of hypertension 4. Underlying history of coronary artery disease 5. Underlying history of hyperlipidemia At this time patient was admitted to medical floor he was started on IV Unasyn and IV vancomycin Infectious disease consultation was requested Home medications reviewed and reordered For DVT prophylaxis patient is maintained on Eliquis For GI prophylaxis will add Protonix Will follow during this admission for medical management
[2020-06-26 16:19] LABS: Anion Gap 22.3 mmol/L (4.00-12.00); Calcium 8.7 mg/dL (8.7-10.3); Carbon Dioxide 20.7 mmol/L (21.6-31.8); Non-African American GFR(CKD) 47.5 (60.0-200.0); Potassium 3.8 mmol/L (3.5-5.5)
[2020-06-26 16:48] LABS: Glucose,Whole Blood 196 mg/dL (75-99)
[2020-06-26] MEDS: ceFAZolin 3 GM in SODIUM CHLORIDE 0.9% 100 ML IVPB SCH (18:11)
[2020-06-26 20:33] LABS: Glucose,Whole Blood 176 mg/dL (75-99)
--- NOTE | 2020-06-26 22:35 | P.CONS ---
History of Present Illness - Reason for Consult Consult date: 06/26/20 sepsis Requesting physician: Jose Jaramillo - Chief Complaint right leg swelling and redness x few days - History of Present Illness Patient is a 65-year-old male morbidly obese in this patient who did have a history of chronic lower extremity swelling and a previous admission to hospital for cellulitis patient presenting to the ER with chief complaints of increasing swelling and redness to the right leg to the right leg that apparently has been getting worse over the last few days before presentation to the hospital patient complaining of diffuse swelling to the right leg along with the redness and he did have a pain which is more of a dull aching at times sharp 5-6 out of 10 in addition patient cutting her hand open wound or any blisters he did have some chills and did have a fever of 101 F last night on presentation to the hospital patient did have a white count of 24 point 2 repeat was 25.2 patient was admitted to hospital he was started on Unasyn 1.5 g every 6 hours infection was consulted for further management of antibiotic therapy. Review of Systems Positive point has been mentioned in HPI rest of the systems are negative Past Medical History Past Medical History: Atrial Fibrillation, Heart Failure, COPD, Diabetes Mellitus, Hyperlipidemia, Hypertension, Osteoarthritis (OA), Sleep Apnea/CPAP/BIPAP Additional Past Medical History / Comment(s): CELLULITIS TO RLE, cpap See Dr House H&P for cardiac history. History of Any Multi-Drug Resistant Organisms: None Reported Past Surgical History: Ablation, Appendectomy, Heart Catheterization, Tonsillectomy Additional Past Surgical History / Comment(s): "Heart cath done for ablation" Past Anesthesia/Blood Transfusion Reactions: No Reported Reaction Additional Past Anesthesia/Blood Transfusion Reaction / Comm: grumpy after surgery Past Psychological History: No Psychological Hx Reported Smoking Status: Former smoker Past Alcohol Use History: None Reported Additional Past Alcohol Use History / Comment(s): cigar once or twice a day Past Drug Use History: None Reported - Past Family History Mother Family Medical History: No Reported History Father Family Medical History: Myocardial Infarction ([place]) Medications and Allergies Home Medications Medication Instructions Recorded Confirmed Type Insulin Glargine,Hum.rec.anlog 60 unit SQ BID 10/18/16 06/25/20 History [Lantus Solostar] metFORMIN HCL 1,000 mg PO AC-BID 10/18/16 06/25/20 History Apixaban [Eliquis] 5 mg PO BID #60 tab 10/24/16 06/25/20 Rx Aspirin EC [Ecotrin Low Dose] 81 mg PO BID 02/26/17 06/25/20 History Nitroglycerin Sl Tabs [Nitrostat] 0.4 mg SUBLINGUAL Q5M PRN tab 02/28/17 06/25/20 Rx Acetaminophen Tab [Tylenol] 650 mg PO QAM PRN 03/30/20 06/25/20 History Insulin Lispro [humaLOG Kwikpen] See Protocol SQ AC-TID PRN 03/30/20 06/25/20 History Atorvastatin [Lipitor] 80 mg PO QAM #90 tab 04/05/20 06/25/20 Rx Furosemide [Lasix] 40 mg PO BID@0900,1600 #180 tab 04/05/20 06/25/20 Rx Mexiletine [Mexitil] 150 mg PO Q8HR #90 cap 04/05/20 06/25/20 Rx Prasugrel [Effient] 10 mg PO DAILY #90 tab 04/05/20 06/25/20 Rx Spironolactone [Aldactone] 25 mg PO DAILY #0 04/05/20 06/25/20 Rx carvediloL [Coreg] 6.25 mg PO BID-W/MEALS #180 tab 04/05/20 06/25/20 Rx lisinopriL [Zestril] 10 mg PO BID #180 tab 04/05/20 06/25/20 Rx Ascorbic Acid [Vitamin C] 500 mg PO DAILY 04/13/20 06/25/20 History Amiodarone [Cordarone] 100 mg PO DAILY 06/05/20 06/25/20 History Allergies Allergy/AdvReac Type Severity Reaction Status Date / Time No Known Allergies Allergy Verified 06/25/20 19:10 Physical Exam Vitals: Vital Signs Temp Pulse Pulse Pulse Resp BP BP 06/26/20 14:00 98.4 F 80 20 120/62 06/26/20 10:09 99.1 F 06/26/20 08:29 97.8 F 06/26/20 07:32 103.0 F H 06/26/20 07:00 103.1 F H 80 22 120/67 06/26/20 02:00 97.9 F 77 17 134/88 06/25/20 21:30 98.2 F 82 16 128/65 06/25/20 19:31 100.1 F H 06/25/20 17:09 101.5 F H 87 18 158/81 Pulse Ox 06/26/20 14:00 96 06/26/20 10:09 06/26/20 08:29 06/26/20 07:32 06/26/20 07:00 94 L 06/26/20 02:00 95 06/25/20 21:30 96 06/25/20 19:31 06/25/20 17:09 96 Intake and Output 06/26/20 06/26/20 06/26/20 06:59 14:59 22:59 Other: Voiding Method Toilet # Voids 2 GENERAL DESCRIPTION: Elderly male lying in bed, no distress. No tachypnea or accessory muscle of respiration use. HEENT: Shows Pallor , no scleral icterus. Oral mucous membrane is dry. NECK: Trachea central, no thyromegaly. LUNGS: Unlabored breathing. Clear to auscultation anteriorly. No wheeze or crackle. HEART: S1, S2, regular rate and rhythm. ABDOMEN: Soft, no tenderness , guarding or rigidity EXTREMITIES: Diffuse swelling of the right lower extremity with redness warmth no drainage. SKIN: No rash, no masses palpable. NEUROLOGICAL: The patient is awake, alert, oriented x3, mood and affect normal. Results CBC & Chem 7: 06/26/20 08:20 06/26/20 08:20 Labs: Abnormal Lab Results - Last 24 Hours (Table) 06/25/20 06/25/20 06/26/20 Range/Units 18:17 18:17 01:48 WBC 24.2 H (3.8-10.6) k/uL Neutrophils # 22.4 H (1.3-7.7) k/uL Lymphocytes # 0.6 L (1.0-4.8) k/uL Chloride (96-109) mmol/L Carbon Dioxide (21.6-31.8) mmol/L Anion Gap (4.00-12.00) mmol/L Est GFR (CKD-EPI)AfAm (60.0-200.0) Est GFR (CKD-EPI)NonAf (60.0-200.0) Glucose (70-110) mg/dL POC Glucose (mg/dL) 126 H (75-99) mg/dL Urine Protein Trace H (Negative) 06/26/20 06/26/20 06/26/20 Range/Units 07:10 08:20 08:20 WBC 25.2 H (3.8-10.6) k/uL Neutrophils # 23.6 H (1.3-7.7) k/uL Lymphocytes # 0.8 L (1.0-4.8) k/uL Chloride 95 L (96-109) mmol/L Carbon Dioxide 20.7 L (21.6-31.8) mmol/L Anion Gap 22.30 H (4.00-12.00) mmol/L Est GFR (CKD-EPI)AfAm 55.0 L (60.0-200.0) Est GFR (CKD-EPI)NonAf 47.5 L (60.0-200.0) Glucose 139 H (70-110) mg/dL POC Glucose (mg/dL) 137 H (75-99) mg/dL Urine Protein (Negative) 06/26/20 Range/Units 11:13 WBC (3.8-10.6) k/uL Neutrophils # (1.3-7.7) k/uL Lymphocytes # (1.0-4.8) k/uL Chloride (96-109) mmol/L Carbon Dioxide (21.6-31.8) mmol/L Anion Gap (4.00-12.00) mmol/L Est GFR (CKD-EPI)AfAm (60.0-200.0) Est GFR (CKD-EPI)NonAf (60.0-200.0) Glucose (70-110) mg/dL POC Glucose (mg/dL) 175 H (75-99) mg/dL Urine Protein (Negative) Assessment and Plan Assessment: patient presented to hospital with sepsis in this patient who did have a fever elevated white count presenting symptom of increasing swelling redness and pain to the right leg likely acute streptococcal cellulitis (1) Cellulitis of right leg Current Visit: Yes Status: Acute Code(s): L03.115 - CELLULITIS OF RIGHT LOWER LIMB SNOMED Code(s): 467714683 (2) Sepsis Current Visit: Yes Status: Acute Code(s): A41.9 - SEPSIS, UNSPECIFIED ORGANISM SNOMED Code(s): 94820086 Plan: 1-discontinue Unasyn 2-start the patient cefazolin 3 g every 8 hour 3-marked the area of the redness right leg 5-Moreno wrap to the right leg from just above the toes to below the knee We will follow on clinical condition and cultures to further adjust medication if needed Thank you for this consultation we will follow the patient along with you Time with Patient: Greater than 30
[2020-06-27] MEDS: MEXILETINE 150 MG CAP PO SCH ×3 (01:04→17:21)
[2020-06-27] MEDS: ceFAZolin 3 GM in SODIUM CHLORIDE 0.9% 100 ML IVPB SCH ×3 (01:04→17:20)
[2020-06-27] MEDS: ACETAMINOPHEN TAB 325 MG TAB PO PRN ×2 (01:17→07:50)
[2020-06-27] MEDS: SODIUM CHLORIDE 0.9% 1,000 ML IV SCH ×2 (06:11→20:14)
[2020-06-27 06:39] LABS: Basophils # (A) 0.1 k/uL (0-0.2); Basophils % (A) 1 %; Eosinophils # (A) 0.1 k/uL (0-0.7); Eosinophils % (A) 0 %; HCT 37.9 % (39.0-53.0); HGB 12.6 gm/dL (13.0-17.5); Lymphocytes # (A) 1.7 k/uL (1.0-4.8); Lymphocytes % (A) 10 %; MCH 29.8 pg (25.0-35.0); MCHC 33.2 g/dL (31.0-37.0); Mean Platelet Volume 6.6; Monocytes # (A) 0.7 k/uL (0-1.0); Monocytes % (A) 4 %; Neutrophils % (A) 83 %; Platelet Count 213 k/uL (150-450); RBC 4.21 m/uL (4.30-5.90); RDW 15.1 % (11.5-15.5); WBC 16.9 k/uL (3.8-10.6)
[2020-06-27 07:05] LABS: Glucose,Whole Blood 93 mg/dL (75-99)
[2020-06-27] MEDS: INSULIN ASPART (NovoLOG) 100 UNIT/ML VIAL SQ SCH ×4 (07:29→23:02)
[2020-06-27] MEDS: VANCOMYCIN 2,250 MG in SODIUM CHLORIDE 0.9% 500 ML 500 ML IVPB SCH (07:48)
[2020-06-27] MEDS: FUROSEMIDE 40 MG TAB PO SCH ×2 (07:50→17:21)
[2020-06-27] MEDS: AMIODARONE 200 MG TAB PO SCH (07:51)
[2020-06-27] MEDS: metFORMIN 500 MG TAB PO SCH ×2 (07:52→17:21)
[2020-06-27] MEDS: lisinopriL 10 MG TAB PO SCH ×2 (07:52→23:02)
[2020-06-27] MEDS: FAMOTIDINE 20 MG TAB PO SCH (07:52)
[2020-06-27] MEDS: PRASUGREL 10 MG TAB PO SCH (07:52)
[2020-06-27] MEDS: carvediloL 6.25 MG TAB PO SCH ×2 (07:52→17:21)
[2020-06-27] MEDS: APIXABAN 5 MG TAB PO SCH ×2 (07:52→23:02)
[2020-06-27] MEDS: ASCORBIC ACID 500 MG TAB PO SCH (07:52)
[2020-06-27] MEDS: ATORVASTATIN 80 MG TAB PO SCH (07:56)
[2020-06-27] MEDS: INSULIN DETEMIR (LEVEMIR) 100 UNIT/ML SYR SQ SCH ×2 (07:56→23:02)
[2020-06-27] MEDS: ASPIRIN 81 MG PO SCH ×2 (07:56→23:02)
[2020-06-27] MEDS: SPIRONOLACTONE 25 MG TAB PO SCH (07:57)
[2020-06-27 10:29] LABS: Albumin 3.4 g/dL (3.80-4.90); Albumin/Globulin Ratio 1.79 (1.60-3.17); Anion Gap 9.9 mmol/L (4.00-12.00); BUN/Creat Ratio 19.33 Ratio (12.00-20.00); Calcium 7.9 mg/dL (8.7-10.3); Carbon Dioxide 24.1 mmol/L (21.6-31.8); Globulin 1.9 g/dL (1.6-3.3); Non-African American GFR(CKD) 47.5 (60.0-200.0); Potassium 3.5 mmol/L (3.5-5.5); Total Bilirubin 0.4 mg/dL (0.3-1.2); Total Protein 5.3 g/dL (6.2-8.2)
[2020-06-27 11:48] LABS: Glucose,Whole Blood 185 mg/dL (75-99)
[2020-06-27 16:06] LABS: Hemoglobin A1C 8.2 % (4.0-6.0)
[2020-06-27 16:41] LABS: Glucose,Whole Blood 128 mg/dL (75-99)
--- NOTE | 2020-06-27 18:43 | P.PN ---
Subjective Progress Note Date: 06/27/20 Jossue Angel, is a 65-year-old male who presented to [facility] emergency room with a chief complaint of worsening swelling erythema and tenderness of his right lower extremity. Patient reports that symptoms started a few days ago and has had previous hospitalization for lower extremity cellulitis. Patient reports he was in the hospital approximately a week ago and was started on antibiotics and discharged home at this time patient reports symptoms did improve but then worsened again over the past few days. Patient has a past medical history of atrial fibrillation in which she is maintained on eliquis, previous cardiac stent maintained on Effient. Additional medical history includes diabetes mellitus type 2 hyperlipidemia hypertension osteoarthritis sleep apnea, reoccurring cellulitis to right lower extremity and ex-smoker. At this time patient has been started on Unasyn and vancomycin. Infectious disease service is consulted. Blood cultures ordered. Patient did have elevated temp and white count. At this time patient denies chest pain or shortness of breath. Patient denies nausea vomiting or diarrhea. Patient denies any urinary burning or frequency On 06/27/2020 patient was seen and examined on the medical floor he is alert and oriented 3 in no apparent distress there is no fever or chills no headache or dizziness no chest pain no shortness of breath no cough no nausea or vomiting no abdominal pain no diarrhea and no urinary symptoms. The right lower extremity swelling erythema and tenderness is slightly better than yesterday patient is maintained on IV vancomycin and IV Unasyn he is followed by infectious disease Objective - Vital Signs Vital signs: Vital Signs Temp 98.4 F 06/27/20 07:41 Pulse 65 06/27/20 10:43 Resp 18 06/27/20 07:41 BP 129/70 06/27/20 10:43 Pulse Ox 96 06/27/20 07:41 Intake & Output 06/26/20 06/27/20 06/27/20 18:59 06:59 18:59 Other: Voiding Method Toilet Toilet # Voids 3 2 - Exam In general patient is alert and oriented 3 in no apparent distress HEENT head normocephalic and atraumatic Neck is supple no JVD no goiter no lymphadenopathy Chest exam reveals clear respiratory sounds no crackles no wheezing Cardiac exam reveals regular heart sounds S1 and S2 no gallops no murmurs Abdomen is soft nontender no organomegaly with normal bowel sounds Extremity exam reveals right lower extremity erythema and swelling and tenderness in the pretibial area Neurological examination reveals no gross focal neurological deficit - Labs CBC & Chem 7: 06/27/20 06:11 06/27/20 06:11 Labs: Abnormal Lab Results - Last 24 Hours (Table) 06/26/20 06/26/20 06/26/20 Range/Units 08:20 16:41 20:32 WBC (3.8-10.6) k/uL RBC (4.30-5.90) m/uL Hgb (13.0-17.5) gm/dL Hct (39.0-53.0) % Neutrophils # (1.3-7.7) k/uL Chloride 95 L (96-109) mmol/L Carbon Dioxide 20.7 L (21.6-31.8) mmol/L Anion Gap 22.30 H (4.00-12.00) mmol/L BUN (9.0-27.0) mg/dL Est GFR (CKD-EPI)AfAm 55.0 L (60.0-200.0) Est GFR (CKD-EPI)NonAf 47.5 L (60.0-200.0) Glucose 139 H (70-110) mg/dL POC Glucose (mg/dL) 196 H 176 H (75-99) mg/dL Calcium (8.7-10.3) mg/dL Total Protein (6.2-8.2) g/dL Albumin (3.80-4.90) g/dL 06/27/20 06/27/20 06/27/20 Range/Units 06:11 06:11 11:44 WBC 16.9 H (3.8-10.6) k/uL RBC 4.21 L (4.30-5.90) m/uL Hgb 12.6 L (13.0-17.5) gm/dL Hct 37.9 L (39.0-53.0) % Neutrophils # 14.0 H (1.3-7.7) k/uL Chloride (96-109) mmol/L Carbon Dioxide (21.6-31.8) mmol/L Anion Gap (4.00-12.00) mmol/L BUN 29.0 H (9.0-27.0) mg/dL Est GFR (CKD-EPI)AfAm 55.0 L (60.0-200.0) Est GFR (CKD-EPI)NonAf 47.5 L (60.0-200.0) Glucose (70-110) mg/dL POC Glucose (mg/dL) 185 H (75-99) mg/dL Calcium 7.9 L (8.7-10.3) mg/dL Total Protein 5.3 L (6.2-8.2) g/dL Albumin 3.40 L (3.80-4.90) g/dL Microbiology - Last 24 Hours (Table) 06/25/20 20:42 Blood Culture - Preliminary Blood No Growth after 24 hours 06/25/20 18:26 Blood Culture - Preliminary Blood No Growth after 24 hours Assessment and Plan Plan: 1. Right lower extremity cellulitis, with sepsis 2. Underlying history of diabetes mellitus 3. Underlying history of hypertension 4. Underlying history of coronary artery disease 5. Underlying history of hyperlipidemia 6. Underlying history of sleep apnea maintained on C Pap At this time patient was admitted to medical floor he was started on IV Unasyn and IV vancomycin Infectious disease consultation was requested Home medications reviewed and reordered For DVT prophylaxis patient is maintained on Eliquis For GI prophylaxis will add Protonix Will follow during this admission for medical management
--- NOTE | 2020-06-27 22:52 | PN ---
PROGRESS NOTE DATE OF SERVICE: 06/27/2020 REASON FOR FOLLOWUP: Right lower extremity cellulitis. INTERVAL HISTORY: The patient did spike a fever after midnight. However, the patient has been afebrile since then. The patient overall is feeling better. He is breathing comfortably. Denies having any chest pain or shortness of breath or cough. No abdominal pain. No pain to the lower extremity. PHYSICAL EXAMINATION: Blood pressure 115/60 with a pulse of 64, temperature 98.2. He is 97% on room air. General description is an elderly male lying in bed in no distress. Respiratory system: Unlabored breathing, clear to auscultation anteriorly. Heart S1, S2. Regular rate and rhythm. ABDOMEN: Soft. No tenderness. Right leg swelling and redness has slightly decreased. LABS: Hemoglobin is 12.1, white count 16.9, BUN of 29, creatinine is 1.5. DIAGNOSTIC IMPRESSION AND PLAN: Patient with admission to the hospital with sepsis secondary to right lower extremity cellulitis in this patient who did have overall improvement as white count has improved as well. We will keep the patient on cefazolin for another 24-48 hours before transitioning to oral along with Moreno wrap to the leg. Continue supportive care. MMODL / IJN: [id number] /
[2020-06-28] MEDS ORDERED: VANCOMYCIN 2,250 MG in SODIUM CHLORIDE 0.9% 500 ML 500 ML IVPB SCH ×2
[2020-06-28] MEDS: MEXILETINE 150 MG CAP PO SCH ×4 (00:55→23:10)
[2020-06-28] MEDS: ceFAZolin 3 GM in SODIUM CHLORIDE 0.9% 100 ML IVPB SCH ×4 (00:55→23:10)
[2020-06-28 06:35] LABS: Basophils # (A) 0.1 k/uL (0-0.2); Basophils % (A) 0 %; Eosinophils # (A) 0.4 k/uL (0-0.7); Eosinophils % (A) 3 %; HCT 35.5 % (39.0-53.0); HGB 11.9 gm/dL (13.0-17.5); Lymphocytes # (A) 1.5 k/uL (1.0-4.8); Lymphocytes % (A) 13 %; MCH 30.1 pg (25.0-35.0); MCHC 33.5 g/dL (31.0-37.0); MCV 89.7 fL (80.0-100.0); Mean Platelet Volume 6.9; Monocytes # (A) 0.5 k/uL (0-1.0); Monocytes % (A) 5 %; Neutrophils # (A) 8.3 k/uL (1.3-7.7); Neutrophils % (A) 76 %; Platelet Count 204 k/uL (150-450); RBC 3.95 m/uL (4.30-5.90)
[2020-06-28] MEDS: INSULIN ASPART (NovoLOG) 100 UNIT/ML VIAL SQ SCH ×4 (07:57→21:02)
[2020-06-28] MEDS: FAMOTIDINE 20 MG TAB PO SCH (08:06)
[2020-06-28] MEDS: AMIODARONE 200 MG TAB PO SCH (08:06)
[2020-06-28] MEDS: ASCORBIC ACID 500 MG TAB PO SCH ×2 (08:06→08:07)
[2020-06-28] MEDS: carvediloL 6.25 MG TAB PO SCH ×2 (08:07→17:22)
[2020-06-28] MEDS: metFORMIN 500 MG TAB PO SCH ×2 (08:07→17:22)
[2020-06-28] MEDS: FUROSEMIDE 40 MG TAB PO SCH ×2 (08:07→16:42)
[2020-06-28] MEDS: PRASUGREL 10 MG TAB PO SCH (08:07)
[2020-06-28] MEDS: APIXABAN 5 MG TAB PO SCH ×2 (08:07→20:59)
[2020-06-28] MEDS: SPIRONOLACTONE 25 MG TAB PO SCH (08:07)
[2020-06-28] MEDS: ASPIRIN 81 MG PO SCH ×2 (08:07→20:59)
[2020-06-28] MEDS: INSULIN DETEMIR (LEVEMIR) 100 UNIT/ML SYR SQ SCH ×2 (08:07→20:59)
[2020-06-28] MEDS: lisinopriL 10 MG TAB PO SCH ×2 (08:08→20:59)
[2020-06-28] MEDS: ATORVASTATIN 80 MG TAB PO SCH (08:08)
[2020-06-28] MEDS: SODIUM CHLORIDE 0.9% 1,000 ML IV SCH ×2 (08:17→22:35)
[2020-06-28 11:32] LABS: African American GFR (CKD) 72.1 (60.0-200.0); Albumin 3.3 g/dL (3.80-4.90); Albumin/Globulin Ratio 1.74 (1.60-3.17); Anion Gap 8.3 mmol/L (4.00-12.00); Calcium 7.5 mg/dL (8.7-10.3); Carbon Dioxide 24.7 mmol/L (21.6-31.8); Globulin 1.9 g/dL (1.6-3.3); Non-African American GFR(CKD) 62.2 (60.0-200.0); Potassium 3.2 mmol/L (3.5-5.5); Total Bilirubin 0.3 mg/dL (0.2-1.2); Total Protein 5.2 g/dL (6.2-8.2)
--- NOTE | 2020-06-28 14:29 | P.PN ---
Subjective On-call hospitalist covering Dr. Jaramillo This is a pleasant 65 years old male with past medical history of atrial fibrillation, chronic heart failure, COPD, diabetes mellitus, hyperlipidemia, hypertension, osteoarthritis, sleep apnea on CPAP/BiPAP. Presents because of right leg cellulitis Patient states that his right leg swelling is improving today. Patient states he has been adherent to taken Eliquis at home On the presentation patient had fever of 102. Patient currently is afebrile. Also he had leukocytosis of 16.9 K, coming down today to 11.03. CBC and BMP is unremarkable. Cultures are negative so far. Patient is been covered with cefazolin, but IV vancomycin was stopped. Infectious disease on the case for now. Objective - Vital Signs Vital signs: Vital Signs Temp 98.5 F 06/28/20 07:50 Pulse 63 06/28/20 07:50 Resp 18 06/28/20 02:50 BP 152/78 06/28/20 07:50 Pulse Ox 96 06/28/20 07:50 Intake & Output 06/27/20 06/28/20 06/28/20 18:59 06:59 18:59 Output Total 600 Balance -600 Output: Urine 600 Other: Voiding Method Toilet Toilet Urinal # Voids 2 1 - Exam GENERAL: The patient is alert and oriented x3, not in any acute distress. Well developed, well nourished. HEENT: Pupils are round and equally reacting to light. EOMI. No scleral icterus. No conjunctival pallor. Normocephalic, atraumatic. No pharyngeal erythema. No thyromegaly. CARDIOVASCULAR: S1 and S2 present. No murmurs, rubs, or gallops. PULMONARY: Chest is clear to auscultation, no wheezing or crackles. ABDOMEN: Soft, nontender, nondistended, normoactive bowel sounds. No palpable organomegaly. MUSCULOSKELETAL: No joint swelling or deformity. -EXTREMITIES: No cyanosis, clubbing, or pedal edema. Right leg is swollen, tender and warm NEUROLOGICAL: Gross neurological examination did not reveal any focal deficits. SKIN: No rashes. no petechiae. - Labs CBC & Chem 7: 06/28/20 06:00 06/28/20 06:00 Labs: Abnormal Lab Results - Last 24 Hours (Table) 06/27/20 06/27/20 06/28/20 Range/Units 06:11 16:40 06:00 WBC 11.0 H (3.8-10.6) k/uL RBC 3.95 L (4.30-5.90) m/uL Hgb 11.9 L (13.0-17.5) gm/dL Hct 35.5 L (39.0-53.0) % Neutrophils # 8.3 H (1.3-7.7) k/uL Potassium (3.5-5.5) mmol/L POC Glucose (mg/dL) 128 H (75-99) mg/dL Hemoglobin A1c 8.2 H (4.0-6.0) % Calcium (8.7-10.3) mg/dL Total Protein (6.2-8.2) g/dL Albumin (3.80-4.90) g/dL 06/28/20 Range/Units 06:00 WBC (3.8-10.6) k/uL RBC (4.30-5.90) m/uL Hgb (13.0-17.5) gm/dL Hct (39.0-53.0) % Neutrophils # (1.3-7.7) k/uL Potassium 3.2 L (3.5-5.5) mmol/L POC Glucose (mg/dL) (75-99) mg/dL Hemoglobin A1c (4.0-6.0) % Calcium 7.5 L (8.7-10.3) mg/dL Total Protein 5.2 L (6.2-8.2) g/dL Albumin 3.30 L (3.80-4.90) g/dL Microbiology - Last 24 Hours (Table) 06/25/20 20:42 Blood Culture - Preliminary Blood No Growth after 48 hours 06/25/20 18:26 Blood Culture - Preliminary Blood No Growth after 48 hours Assessment and Plan Assessment: Acute right leg cellulitis sepsis secondary to above with meeting SIRS criteria with leukocytosis and fever Paroxysmal atrial fibrillation Hyperlipidemia Hypertension Osteoarthritis Chronic heart failure COPD, no acute exacerbation Plan: this is a pleasant 65 race old male who presents with right leg cellulitis. Continue with cefazolin antibiotics as per infectious disease recommendation. Continue with the Eliquis. Labs and medication were reviewed.. Continue same treatment. Continue with symptomatic treatment. Resume home medication. Monitor lytes and vitals. DVT and GI prophylaxis. Further recommendations as per clinical course of the patient DVT prophylaxis: Eliquis GI Prophylaxis: Pepcid PT/OT: Pending Prognosis is guarded
[2020-06-28] MEDS ORDERED: VANCOMYCIN TROUGH DUE 1 EACH MISC MISCELLANE ONE (15:00)
--- NOTE | 2020-06-28 22:12 | PN ---
PROGRESS NOTE DATE OF SERVICE: 06/28/2020 REASON FOR FOLLOWUP: Right lower extremity cellulitis. INTERVAL HISTORY: The patient is currently afebrile. The patient is breathing comfortably. The patient denies having any chest pain or shortness of breath or cough. No abdominal pain. Overall swelling and redness in the leg has decreased. PHYSICAL EXAMINATION: Blood pressure 152/78 with a pulse of 63, temperature 98.5. He is 96% on room air. General description is an elderly male lying in bed in no distress. RESPIRATORY SYSTEM: Unlabored breathing. Clear to auscultation anteriorly. HEART: S1, S2. Regular rate and rhythm. ABDOMEN: Soft. No tenderness. Right leg swelling and redness slightly decreased. LABS: Hemoglobin 11.9, white count 11.0, BUN of 24, creatinine 1.2. DIAGNOSTIC IMPRESSION AND PLAN: Patient admitted to hospital with sepsis. Source is acute right lower extremity cellulitis in this patient who did have diffuse swelling and redness. The patient is currently covered with cefazolin 3 grams q.8 hours; to continue. Keep the patient on IV antibiotic for another 24 hours before transitioning to oral. Local care with Moreno and Amaris and continue with supportive care. MMODL / IJN: [id number] /
[2020-06-29 07:00] LABS: Basophils # (A) 0.1 k/uL (0-0.2); Basophils % (A) 1 %; Eosinophils # (A) 0.5 k/uL (0-0.7); Eosinophils % (A) 5 %; HCT 36.6 % (39.0-53.0); HGB 12.4 gm/dL (13.0-17.5); Lymphocytes # (A) 1.9 k/uL (1.0-4.8); Lymphocytes % (A) 18 %; MCH 30.3 pg (25.0-35.0); MCHC 33.8 g/dL (31.0-37.0); MCV 89.8 fL (80.0-100.0); Monocytes # (A) 0.5 k/uL (0-1.0); Monocytes % (A) 5 %; Neutrophils # (A) 6.7 k/uL (1.3-7.7); Neutrophils % (A) 66 %; Platelet Count 225 k/uL (150-450); RBC 4.08 m/uL (4.30-5.90); WBC 10.1 k/uL (3.8-10.6)
[2020-06-29] MEDS: ATORVASTATIN 80 MG TAB PO SCH (08:22)
[2020-06-29] MEDS: APIXABAN 5 MG TAB PO SCH ×2 (08:22→21:20)
[2020-06-29] MEDS: PRASUGREL 10 MG TAB PO SCH (08:22)
[2020-06-29] MEDS: FAMOTIDINE 20 MG TAB PO SCH (08:22)
[2020-06-29] MEDS: ASPIRIN 81 MG PO SCH ×2 (08:22→21:20)
[2020-06-29] MEDS: FUROSEMIDE 40 MG TAB PO SCH ×2 (08:22→15:40)
[2020-06-29] MEDS: SPIRONOLACTONE 25 MG TAB PO SCH (08:22)
[2020-06-29] MEDS: lisinopriL 10 MG TAB PO SCH ×2 (08:22→21:20)
[2020-06-29] MEDS: metFORMIN 500 MG TAB PO SCH ×2 (08:23→17:05)
[2020-06-29] MEDS: AMIODARONE 200 MG TAB PO SCH (08:23)
[2020-06-29] MEDS: ASCORBIC ACID 500 MG TAB PO SCH (08:23)
[2020-06-29] MEDS: ceFAZolin 3 GM in SODIUM CHLORIDE 0.9% 100 ML IVPB SCH ×3 (08:23→23:15)
[2020-06-29] MEDS: carvediloL 6.25 MG TAB PO SCH ×2 (08:23→17:05)
[2020-06-29] MEDS: MEXILETINE 150 MG CAP PO SCH ×3 (08:24→23:15)
[2020-06-29] MEDS: INSULIN DETEMIR (LEVEMIR) 100 UNIT/ML SYR SQ SCH ×2 (08:24→21:20)
[2020-06-29] MEDS: INSULIN ASPART (NovoLOG) 100 UNIT/ML VIAL SQ SCH ×4 (08:29→21:03)
[2020-06-29 10:57] LABS: ALT <8 U/L (10-49); AST 19 U/L (14-35); African American GFR (CKD) 80.1 (60.0-200.0); Albumin/Globulin Ratio 1.84 (1.60-3.17); Alkaline Phosphatase 71 U/L (41-126); BUN/Creat Ratio 18.18 Ratio (12.00-20.00); Calcium 7.6 mg/dL (8.7-10.3); Carbon Dioxide 23.7 mmol/L (21.6-31.8); Chloride 108 mmol/L (96-109); Globulin 1.9 g/dL (1.6-3.3); Glucose 73 mg/dL (70-110); Non-African American GFR(CKD) 69.1 (60.0-200.0); Potassium 3.4 mmol/L (3.5-5.5); Sodium 143 mmol/L (135-145); Total Bilirubin 0.3 mg/dL (0.2-1.2); Total Protein 5.4 g/dL (6.2-8.2)
--- NOTE | 2020-06-29 12:52 | P.PN ---
Subjective On-call hospitalist covering Dr. Jaramillo This is a pleasant 65 years old male with past medical history of atrial fibrillation, chronic heart failure, COPD, diabetes mellitus, hyperlipidemia, hypertension, osteoarthritis, sleep apnea on CPAP/BiPAP. Presents because of right leg cellulitis Patient states that his right leg swelling is improving today. Patient states he has been adherent to taken Eliquis at home On the presentation patient had fever of 102. Patient currently is afebrile. Also he had leukocytosis of 16.9 K, coming down today to 11.03. CBC and BMP is unremarkable. Cultures are negative so far. Patient is been covered with cefazolin, but IV vancomycin was stopped. Infectious disease on the case for now. 06/29/2020 Patient currently cellulitis is improving, his slits warm and nontender today. However is still bigger and Dr. in color compared to the left side As per patient his right leg has been darker this much for about 15 years and also at baseline is better than the left side. However is a still warmer on the right side indicating active infection although it's improving however patient still needs IV antibiotics Objective - Vital Signs Vital signs: Vital Signs Temp 97.5 F L 06/29/20 07:46 Pulse 60 06/29/20 08:27 Resp 20 06/29/20 08:27 BP 180/76 06/29/20 07:46 Pulse Ox 97 06/29/20 07:46 Intake & Output 06/28/20 06/29/20 06/29/20 18:59 06:59 18:59 Output Total 400 Balance -400 Output: Urine 400 Other: Voiding Method Toilet Toilet Urinal Urinal # Voids 3 1 - Exam GENERAL: The patient is alert and oriented x3, not in any acute distress. Well developed, well nourished. HEENT: Pupils are round and equally reacting to light. EOMI. No scleral icterus. No conjunctival pallor. Normocephalic, atraumatic. No pharyngeal erythema. No thyromegaly. CARDIOVASCULAR: S1 and S2 present. No murmurs, rubs, or gallops. PULMONARY: Chest is clear to auscultation, no wheezing or crackles. ABDOMEN: Soft, nontender, nondistended, normoactive bowel sounds. No palpable organomegaly. MUSCULOSKELETAL: No joint swelling or deformity. -EXTREMITIES: No cyanosis, clubbing, or pedal edema. Right leg is swollen, tender and warm NEUROLOGICAL: Gross neurological examination did not reveal any focal deficits. SKIN: No rashes. no petechiae. - Labs CBC & Chem 7: 06/29/20 06:41 06/29/20 06:41 Labs: Abnormal Lab Results - Last 24 Hours (Table) 06/29/20 06/29/20 Range/Units 06:41 06:41 RBC 4.08 L (4.30-5.90) m/uL Hgb 12.4 L (13.0-17.5) gm/dL Hct 36.6 L (39.0-53.0) % Potassium 3.4 L (3.5-5.5) mmol/L Calcium 7.6 L (8.7-10.3) mg/dL ALT <8 L (10-49) U/L Total Protein 5.4 L (6.2-8.2) g/dL Albumin 3.50 L (3.80-4.90) g/dL Microbiology - Last 24 Hours (Table) 06/25/20 20:42 Blood Culture - Preliminary Blood No Growth after 72 hours 06/25/20 18:26 Blood Culture - Preliminary Blood No Growth after 72 hours Assessment and Plan Assessment: Acute right leg cellulitis sepsis secondary to above with meeting SIRS criteria with leukocytosis and fever Paroxysmal atrial fibrillation Hyperlipidemia Hypertension Osteoarthritis Chronic heart failure COPD, no acute exacerbation Plan: this is a pleasant 65 race old male who presents with right leg cellulitis. Continue with cefazolin antibiotics as per infectious disease recommendation. Continue with the Eliquis. Labs and medication were reviewed.. Continue same treatment. Continue with symptomatic treatment. Resume home medication. Monitor lytes and vitals. DVT and GI prophylaxis. Further recommendations as per clinical course of the patient DVT prophylaxis: Eliquis GI Prophylaxis: Pepcid PT/OT: Pending Prognosis is guarded
--- NOTE | 2020-06-29 15:08 | PN ---
PROGRESS NOTE DATE OF SERVICE: 06/29/2020 REASON FOR FOLLOWUP: Acute right lower extremity cellulitis. INTERVAL HISTORY: Patient is currently afebrile. Patient is breathing comfortably. Overall pain and discomfort to the right leg has decreased. No chest pain. No cough. No abdominal pain, no diarrhea. PHYSICAL EXAMINATION: Blood pressure 118/76, pulse of 60, temperature is 98.5, he is 97% on room air. General description is an elderly male up in the bed in no distress. Respiratory system: Unlabored breathing, clear to auscultation anteriorly. Heart S1, S2. Regular rate and rhythm. Abdomen is soft, no tenderness. Right leg swelling persists. Redness has improved. No open wound or any drainage. LABS: Hemoglobin is 12.4, white count 10.1 with BUN of 20, creatinine 1.1. DIAGNOSTIC IMPRESSION AND PLAN: Patient with acute right lower extremity cellulitis with . Patient showed improvement on cefazolin. White count normalized. Blood culture negative. He is insisting on going home. Discharge antibiotic will be Keflex 500 mg q.6h for 10 days. Prescription sent to the pharmacy, along with Moreno wrap to the leg to keep the swelling down. MMODL / IJN: [id number] /
[2020-06-29] MEDS: SODIUM CHLORIDE 0.9% 1,000 ML IV SCH (18:55)
[2020-06-29] MEDS: amLODIPine 5 MG TAB PO SCH (23:15)
[2020-06-30] MEDS: INSULIN ASPART (NovoLOG) 100 UNIT/ML VIAL SQ SCH ×4 (07:41→22:36)
[2020-06-30] MEDS: MEXILETINE 150 MG CAP PO SCH ×3 (07:50→23:04)
[2020-06-30] MEDS: ceFAZolin 3 GM in SODIUM CHLORIDE 0.9% 100 ML IVPB SCH ×3 (07:50→22:50)
[2020-06-30] MEDS: ASPIRIN 81 MG PO SCH ×2 (07:50→22:35)
[2020-06-30] MEDS: FAMOTIDINE 20 MG TAB PO SCH (07:50)
[2020-06-30] MEDS: amLODIPine 5 MG TAB PO SCH (07:50)
[2020-06-30] MEDS: ACETAMINOPHEN TAB 325 MG TAB PO PRN (07:50)
[2020-06-30] MEDS: APIXABAN 5 MG TAB PO SCH ×2 (07:51→22:35)
[2020-06-30] MEDS: lisinopriL 10 MG TAB PO SCH ×2 (07:51→22:35)
[2020-06-30] MEDS: ATORVASTATIN 80 MG TAB PO SCH (07:51)
[2020-06-30] MEDS: FUROSEMIDE 40 MG TAB PO SCH ×2 (07:51→15:51)
[2020-06-30] MEDS: ASCORBIC ACID 500 MG TAB PO SCH (07:51)
[2020-06-30] MEDS: carvediloL 6.25 MG TAB PO SCH ×2 (07:51→17:22)
[2020-06-30] MEDS: AMIODARONE 200 MG TAB PO SCH (07:51)
[2020-06-30] MEDS: metFORMIN 500 MG TAB PO SCH ×2 (07:51→17:22)
[2020-06-30] MEDS: INSULIN DETEMIR (LEVEMIR) 100 UNIT/ML SYR SQ SCH ×2 (07:58→22:36)
[2020-06-30] MEDS: PRASUGREL 10 MG TAB PO SCH (08:03)
[2020-06-30] MEDS: SPIRONOLACTONE 25 MG TAB PO SCH (08:03)
[2020-06-30] MEDS ORDERED: FUROSEMIDE 10 MG/ML 4 ML VIAL IV STA (11:59)
[2020-06-30] MEDS ORDERED: Potassium Replacement Protocol 1 EACH MISC MISCELLANE PRN (15:25)
[2020-06-30] MEDS: POTASSIUM CHLORIDE ER 20 MEQ TAB.ER PO SCH ×2 (15:51→17:22)
[2020-06-30 19:03] LABS: African American GFR (CKD) 87 (>60 ml/min/1.73 sqM); Anion Gap 8 mmol/L; Blood Urea Nitrogen 17 mg/dL (9-20); Calcium 7.7 mg/dL (8.4-10.2); Carbon Dioxide 25 mmol/L (22-30); Chloride 105 mmol/L (98-107); Glucose 172 mg/dL (74-99); Non-African American GFR(CKD) 75 (>60 ml/min/1.73 sqM); Potassium 3.5 mmol/L (3.5-5.1); Sodium 138 mmol/L (137-145)
--- NOTE | 2020-06-30 22:46 | P.PN ---
Subjective On-call hospitalist covering Dr. Jaramillo This is a pleasant 65 years old male with past medical history of atrial fibrillation, chronic heart failure, COPD, diabetes mellitus, hyperlipidemia, hypertension, osteoarthritis, sleep apnea on CPAP/BiPAP. Presents because of right leg cellulitis Patient states that his right leg swelling is improving today. Patient states he has been adherent to taken Eliquis at home On the presentation patient had fever of 102. Patient currently is afebrile. Also he had leukocytosis of 16.9 K, coming down today to 11.03. CBC and BMP is unremarkable. Cultures are negative so far. Patient is been covered with cefazolin, but IV vancomycin was stopped. Infectious disease on the case for now. 06/29/2020 Patient currently cellulitis is improving, his slits warm and nontender today. However is still bigger and Dr. in color compared to the left side As per patient his right leg has been darker this much for about 15 years and also at baseline is better than the left side. However is a still warmer on the right side indicating active infection although it's improving however patient still needs IV antibiotics 06/30/2020 Patient right leg cellulitis is still improving, but less swelling and less forms. Patient is asking to be discharged soon and asked infectious disease team for the same think. Dr. Richardson cleared him for discharge on oral antibiotics, however when I talked and he agrees to stay until tomorrow for IV antibiotics and if he still improving then possible discharge in the morning. Patient agrees with the plan Objective - Vital Signs Vital signs: Vital Signs Temp 97.5 F L 06/30/20 08:00 Pulse 61 06/30/20 08:00 Resp 18 06/30/20 08:00 BP 163/84 06/30/20 08:00 Pulse Ox 93 L 06/30/20 08:00 Intake & Output 06/29/20 06/30/20 06/30/20 18:59 06:59 18:59 Intake Total 520 200 Output Total 1550 Balance -1030 200 Intake: Oral 520 200 Output: Urine 1550 Other: Voiding Method Toilet Toilet Urinal Urinal # Voids 4 - Exam GENERAL: The patient is alert and oriented x3, not in any acute distress. Well developed, well nourished. HEENT: Pupils are round and equally reacting to light. EOMI. No scleral icterus. No conjunctival pallor. Normocephalic, atraumatic. No pharyngeal erythema. No thyromegaly. CARDIOVASCULAR: S1 and S2 present. No murmurs, rubs, or gallops. PULMONARY: Chest is clear to auscultation, no wheezing or crackles. ABDOMEN: Soft, nontender, nondistended, normoactive bowel sounds. No palpable organomegaly. MUSCULOSKELETAL: No joint swelling or deformity. -EXTREMITIES: No cyanosis, clubbing, or pedal edema. Right leg is swollen, tender and warm NEUROLOGICAL: Gross neurological examination did not reveal any focal deficits. SKIN: No rashes. no petechiae. - Labs CBC & Chem 7: 06/29/20 06:41 06/30/20 18:28 Labs: Microbiology - Last 24 Hours (Table) 06/25/20 20:42 Blood Culture - Preliminary Blood No Growth after 96 hours 06/25/20 18:26 Blood Culture - Preliminary Blood No Growth after 96 hours Assessment and Plan Assessment: Acute right leg cellulitis sepsis secondary to above with meeting SIRS criteria with leukocytosis and fever Paroxysmal atrial fibrillation Hyperlipidemia Hypertension Osteoarthritis Chronic heart failure COPD, no acute exacerbation Plan: this is a pleasant 65 race old male who presents with right leg cellulitis. Continue with cefazolin antibiotics as per infectious disease recommendation. Continue with the Eliquis. Labs and medication were reviewed.. Continue same treatment. Continue with symptomatic treatment. Resume home medication. Monitor lytes and vitals. DVT and GI prophylaxis. Further recommendations as per clinical course of the patient DVT prophylaxis: Eliquis GI Prophylaxis: Pepcid PT/OT: Pending Prognosis is guarded
--- NOTE | 2020-07-01 01:16 | PN ---
PROGRESS NOTE DATE OF SERVICE: REASON FOR FOLLOWUP: Right lower extremity cellulitis. INTERVAL HISTORY: The patient is currently afebrile. Patient is breathing comfortably. Still has significant swelling of the right lower extremity. No chest pain or cough. No abdominal pain or diarrhea. PHYSICAL EXAMINATION: Blood pressure 152/75 with pulse of 69, temperature 98.9. She is sating 97% on room air. General description: The patient is an elderly male up in the chair in no distress. Respiratory system: Unlabored breathing, clear to auscultation anteriorly. Heart S1, S2. Regular rate and rhythm. Abdomen is soft, no tenderness. Right leg still has swelling. Redness improved. LABS: BUN of 17, creatinine 1.3. DIAGNOSTIC IMPRESSION AND PLAN: Patient with acute right lower extremity cellulitis. This patient did have diffuse swelling and redness likely streptococcal disease. Patient is currently covered with cefazolin to continue along with Moreno wrap to the leg. Finish therapy with the oral Keflex. Prescription has been sent to the pharmacy. Continue supportive care. MMODL / IJN: [id number] /
[2020-07-01] MEDS: ACETAMINOPHEN TAB 325 MG TAB PO PRN (05:48)
[2020-07-01] MEDS: INSULIN ASPART (NovoLOG) 100 UNIT/ML VIAL SQ SCH ×2 (07:09→11:52)
[2020-07-01 07:41] VITALS: RESP 18; TEMP 97.9
[2020-07-01] MEDS: ceFAZolin 3 GM in SODIUM CHLORIDE 0.9% 100 ML IVPB SCH (08:04)
[2020-07-01] MEDS: ASCORBIC ACID 500 MG TAB PO SCH (08:04)
[2020-07-01] MEDS: ASPIRIN 81 MG PO SCH (08:04)
[2020-07-01] MEDS: FAMOTIDINE 20 MG TAB PO SCH (08:04)
[2020-07-01] MEDS: ATORVASTATIN 80 MG TAB PO SCH (08:04)
[2020-07-01] MEDS: SPIRONOLACTONE 25 MG TAB PO SCH (08:04)
[2020-07-01] MEDS: carvediloL 6.25 MG TAB PO SCH (08:05)
[2020-07-01] MEDS: FUROSEMIDE 40 MG TAB PO SCH (08:05)
[2020-07-01] MEDS: MEXILETINE 150 MG CAP PO SCH (08:05)
[2020-07-01] MEDS: AMIODARONE 200 MG TAB PO SCH (08:05)
[2020-07-01] MEDS: PRASUGREL 10 MG TAB PO SCH (08:05)
[2020-07-01] MEDS: APIXABAN 5 MG TAB PO SCH (08:05)
[2020-07-01] MEDS: lisinopriL 10 MG TAB PO SCH (08:05)
[2020-07-01] MEDS: amLODIPine 5 MG TAB PO SCH (08:05)
[2020-07-01] MEDS: metFORMIN 500 MG TAB PO SCH (08:05)
[2020-07-01] MEDS: INSULIN DETEMIR (LEVEMIR) 100 UNIT/ML SYR SQ SCH (08:06)
[2020-07-01 09:00] LABS: Basophils # (A) 0.1 k/uL (0-0.2); Basophils % (A) 1 %; Eosinophils # (A) 0.6 k/uL (0-0.7); Eosinophils % (A) 4 %; HCT 38.3 % (39.0-53.0); HGB 12.6 gm/dL (13.0-17.5); Lymphocytes # (A) 2.3 k/uL (1.0-4.8); Lymphocytes % (A) 17 %; MCH 29.5 pg (25.0-35.0); MCHC 32.9 g/dL (31.0-37.0); MCV 89.4 fL (80.0-100.0); Monocytes # (A) 0.7 k/uL (0-1.0); Monocytes % (A) 5 %; Neutrophils # (A) 9.5 k/uL (1.3-7.7); Neutrophils % (A) 71 %; Platelet Count 271 k/uL (150-450); RBC 4.28 m/uL (4.30-5.90); WBC 13.4 k/uL (3.8-10.6)
[2020-07-01 09:28] LABS: Glucose,Whole Blood 139 mg/dL (75-99)
[2020-07-01 09:29] LABS: Glucose,Whole Blood 130 mg/dL (75-99)
[2020-07-01 09:29] LABS: Glucose,Whole Blood 109 mg/dL (75-99)
[2020-07-01 09:29] LABS: Glucose,Whole Blood 127 mg/dL (75-99)
[2020-07-01 09:29] LABS: Glucose,Whole Blood 115 mg/dL (75-99)
[2020-07-01 09:29] LABS: Glucose,Whole Blood 194 mg/dL (75-99)
[2020-07-01 09:29] LABS: Glucose,Whole Blood 130 mg/dL (75-99)
[2020-07-01 09:29] LABS: Glucose,Whole Blood 79 mg/dL (75-99)
[2020-07-01 09:29] LABS: Glucose,Whole Blood 82 mg/dL (75-99)
[2020-07-01 09:29] LABS: Glucose,Whole Blood 195 mg/dL (75-99)
[2020-07-01 09:30] LABS: Glucose,Whole Blood 85 mg/dL (75-99)
[2020-07-01 09:36] LABS: Glucose,Whole Blood 191 mg/dL (75-99)
[2020-07-01 09:37] LABS: Glucose,Whole Blood 83 mg/dL (75-99)
[2020-07-01 09:37] LABS: Glucose,Whole Blood 120 mg/dL (75-99)
[2020-07-01 09:39] LABS: Glucose,Whole Blood 158 mg/dL (75-99)
[2020-07-01 11:41] LABS: Glucose,Whole Blood 124 mg/dL (75-99)
[2020-07-01 12:32] LABS: African American GFR (CKD) 80.1 (60.0-200.0); Anion Gap 12.4 mmol/L (4.00-12.00); BUN/Creat Ratio 14.55 Ratio (12.00-20.00); Calcium 8.1 mg/dL (8.7-10.3); Carbon Dioxide 26.6 mmol/L (21.6-31.8); Non-African American GFR(CKD) 69.1 (60.0-200.0); Potassium 3.7 mmol/L (3.5-5.5)
[2020-07-01 13:26] VITALS: BP 149/77; PULSE 60
--- NOTE | 2020-07-01 16:26 | PN ---
PROGRESS NOTE DATE OF VISIT: 07/01/2020 REASON FOR FOLLOWUP: Acute right lower extremity cellulitis. INTERVAL HISTORY: The patient is seen on rounds early this afternoon. The patient has been afebrile, breathing comfortably. He denies any chest pain. No shortness of breath, cough or abdominal pain. No pain to the right lower extremity. PHYSICAL EXAMINATION: Blood pressure 149/77, pulse of 73, temperature 97.9. He is 97% on room air. General description: The patient is an elderly male up in the chair in no distress. Respiratory system: Unlabored breathing, clear to auscultation anteriorly. Heart S1, S2. Regular rate and rhythm. Abdomen soft, no tenderness. LABS: Blood culture negative. DIAGNOSTIC IMPRESSION AND PLAN: Patient with acute right lower extremity cellulitis with diffuse swelling with likely streptococcal disease, plan to finish therapy with oral Keflex, prescription sent to the pharmacy. Moreno wrap to the leg and close outpatient followup. MMODL / IJN: [id number] /
--- NOTE | 2020-07-01 23:17 | P.DS ---
Providers Date of admission: 06/25/20 20:01 Attending physician: Jose Jaramillo Consults: 06/25/20 20:01 Consult Physician Routine Consulting Provider: Varghese Adorno Consult Reason/Comments: cellulitis, sepsis Do you want consulting provider notified?: Yes Primary care physician: Anna Rizvi Hospital Course: Diagnoses: Acute right leg cellulitis , improved and discharged on oral Keflex upon ID team recommendation sepsis secondary to above with meeting SIRS criteria with leukocytosis and fever Paroxysmal atrial fibrillation Hyperlipidemia Hypertension Osteoarthritis Chronic heart failure COPD, no acute exacerbation Hospital course: This is a pleasant 65 years old male with past medical history of atrial fibrillation, chronic heart failure, COPD, diabetes mellitus, hyperlipidemia, hypertension, osteoarthritis, sleep apnea on CPAP/BiPAP. Presents because of right leg cellulitis Patient states that his right leg swelling is improving today. Patient states he has been adherent to taken Eliquis at home On the presentation patient had fever of 102. Patient currently is afebrile. Also he had leukocytosis of 16.9 K, coming down today to 13k. Cultures are negative . Patient is been covered with cefazolin, Infectious disease on the case , and they cleared him for discharge on 10 more days of complex with improvement of his right leg cellulitis significantly. With less forms, swelling and tenderness. Patient was referred to go home over the last 2 days and he looks clinically stable Norvasc is added for high blood pressure and blood pressure is better controlled upon discharge patient denies any other symptoms upon discharge Patient was cleared for discharge by ID team Problems and management plan were discussed with the patient and he verbalized understanding and acceptance Patient was found stable and can be discharged home however he needs follow-up as an outpatient. Patient was instructed to follow up with PCP Dr. Jaramillo within one week and patient agrees. Also patient was instructed to follow up with Dr. adorno in one week and he agrees to call and make appointment as today is weakenedID Gen: patient is a AAOx3, no distress CVS: S1-S2, RRR, no murmur Lungs: B/L CTA, no wheezing Abdomen: soft, no distention, no tenderness, positive bowel sounds Extremity: no leg edema or induration Time spent more than 35 minutes Patient Condition at Discharge: Serious Plan - Discharge Summary Discharge Rx Participant: Yes New Discharge Prescriptions: New Cephalexin [Keflex] 500 mg PO Q6HR 10 Days #40 cap amLODIPine [Norvasc] 5 mg PO DAILY #30 tab Continue metFORMIN HCL 1,000 mg PO AC-BID Insulin Glargine,Hum.rec.anlog [Lantus Solostar] 60 unit SQ BID Apixaban [Eliquis] 5 mg PO BID #60 tab Aspirin EC [Ecotrin Low Dose] 81 mg PO BID Nitroglycerin Sl Tabs [Nitrostat] 0.4 mg SUBLINGUAL Q5M PRN tab PRN Reason: Chest Pain Insulin Lispro [humaLOG Kwikpen] See Protocol SQ AC-TID PRN PRN Reason: HIGH BLOOD SUGAR Acetaminophen Tab [Tylenol] 650 mg PO QAM PRN PRN Reason: Pain carvediloL [Coreg] 6.25 mg PO BID-W/MEALS #180 tab Prasugrel [Effient] 10 mg PO DAILY #90 tab Furosemide [Lasix] 40 mg PO BID@0900,1600 #180 tab Atorvastatin [Lipitor] 80 mg PO QAM #90 tab Mexiletine [Mexitil] 150 mg PO Q8HR #90 cap lisinopriL [Zestril] 10 mg PO BID #180 tab Spironolactone [Aldactone] 25 mg PO DAILY #0 Ascorbic Acid [Vitamin C] 500 mg PO DAILY Amiodarone [Cordarone] 100 mg PO DAILY Discharge Medication List Insulin Glargine,Hum.rec.anlog [Lantus Solostar] 60 unit SQ BID 10/18/16 [History] metFORMIN HCL 1,000 mg PO AC-BID 10/18/16 [History] Apixaban [Eliquis] 5 mg PO BID #60 tab 10/24/16 [Rx] Aspirin EC [Ecotrin Low Dose] 81 mg PO BID 02/26/17 [History] Nitroglycerin Sl Tabs [Nitrostat] 0.4 mg SUBLINGUAL Q5M PRN tab 02/28/17 [Rx] Acetaminophen Tab [Tylenol] 650 mg PO QAM PRN 03/30/20 [History] Insulin Lispro [humaLOG Kwikpen] See Protocol SQ AC-TID PRN 03/30/20 [History] Atorvastatin [Lipitor] 80 mg PO QAM #90 tab 04/05/20 [Rx] Furosemide [Lasix] 40 mg PO BID@0900,1600 #180 tab 04/05/20 [Rx] Mexiletine [Mexitil] 150 mg PO Q8HR #90 cap 04/05/20 [Rx] Prasugrel [Effient] 10 mg PO DAILY #90 tab 04/05/20 [Rx] Spironolactone [Aldactone] 25 mg PO DAILY #0 04/05/20 [Rx] carvediloL [Coreg] 6.25 mg PO BID-W/MEALS #180 tab 04/05/20 [Rx] lisinopriL [Zestril] 10 mg PO BID #180 tab 04/05/20 [Rx] Ascorbic Acid [Vitamin C] 500 mg PO DAILY 04/13/20 [History] Amiodarone [Cordarone] 100 mg PO DAILY 06/05/20 [History] Cephalexin [Keflex] 500 mg PO Q6HR 10 Days #40 cap 06/29/20 [Rx] amLODIPine [Norvasc] 5 mg PO DAILY #30 tab 06/30/20 [Rx] Follow up Appointment(s)/Referral(s): Anna Rizvi MD [Primary Care Provider] - 1-2 days (Office closed. Please call on Thursday to schedule appointment ) Varghese Adorno MD [STAFF PHYSICIAN] - 1 Week (office closed. Please call to schedule appointment on Thursday) Patient Instructions/Handouts: Cellulitis (DC) Activity/Diet/Wound Care/Special Instructions: heart healthy diet activity is restricted till you see your doctor Discharge Disposition: HOME SELF-CARE
== END 2020-07-01 14:34 | disposition home or self-care (01) | DRG 872 ==
LOC: EC 16:58 → 4SSUR 20:01
PROVIDERS: ADMIT Internal Medicine; ATTEND Internal Medicine
DX: A40.9 Streptococcal sepsis, unspecified (principal); Z68.41 Body mass index [BMI] 40.0-44.9, adult; L03.115 Cellulitis of right lower limb; E66.01 Morbid (severe) obesity due to excess calories; E78.5 Hyperlipidemia, unspecified; E11.9 Type 2 diabetes mellitus without complications; G47.30 Sleep apnea, unspecified; I11.0 Hypertensive heart disease with heart failure; I25.10 Atherosclerotic heart disease of native coronary artery without angina pectoris; I48.0 Paroxysmal atrial fibrillation; I50.9 Heart failure, unspecified; J44.9 Chronic obstructive pulmonary disease, unspecified; M19.90 Unspecified osteoarthritis, unspecified site; Z79.01 Long term (current) use of anticoagulants; Z79.02 Long term (current) use of antithrombotics/antiplatelets; Z79.84 Long term (current) use of oral hypoglycemic drugs; Z79.899 Other long term (current) drug therapy; Z82.49 Family history of ischemic heart disease and other diseases of the circulatory system; Z87.891 Personal history of nicotine dependence; Z95.5 Presence of coronary angioplasty implant and graft; Z90.49 Acquired absence of other specified parts of digestive tract; Z90.89 Acquired absence of other organs; Z98.890 Other specified postprocedural states
CPT/HCPCS: 36415; 80048; 80053; 81003; 83036; 83605; 85025; 85610; 85730; 87040; 93005; 96365; 99291

== ENCOUNTER 2020-12-31 20:48 | Emergency (ER) | payer MEDICARE ==
[2020-12-31 21:22] VITALS: TEMP 98.4
[2020-12-31] MEDS ORDERED: HYDROcodone/APAP 7.5-325MG 1 EACH TAB PO ONE (22:33)
--- NOTE | 2020-12-31 22:39 | ED ---
Extremity Problem HPI - General Chief complaint: Extremity Problem,Nontraumatic Stated complaint: Leg pain Time Seen by Provider: 12/31/20 22:22 Source: patient, RN notes reviewed Mode of arrival: ambulatory Limitations: no limitations - History of Present Illness Initial comments: 65-year-old male presents emergency Department chief complaint of bilateral leg pain. Patient states started earlier today that is worse with movement better at rest. Patient states it feels like some stabbing the back of his thighs. He denies any bowel, bladder incontinence or retention no saddle anesthesias no extreme back pain no trauma. Patient states he does have a cut on his right leg and which she had infections in the past. He's had no fevers chills no night sweats. Patient's tetanus is up-to-date. - Related Data Home Medications Medication Instructions Recorded Confirmed Insulin Glargine,Hum.rec.anlog 60 unit SQ BID 10/18/16 06/25/20 [Lantus Solostar] metFORMIN HCL 1,000 mg PO AC-BID 10/18/16 06/25/20 Aspirin EC [Ecotrin Low Dose] 81 mg PO BID 02/26/17 06/25/20 Acetaminophen Tab [Tylenol] 650 mg PO QAM PRN 03/30/20 06/25/20 Insulin Lispro [humaLOG Kwikpen] See Protocol SQ AC-TID PRN 03/30/20 06/25/20 Ascorbic Acid [Vitamin C] 500 mg PO DAILY 04/13/20 06/25/20 Amiodarone [Cordarone] 100 mg PO DAILY 06/05/20 06/25/20 Previous Rx's Medication Instructions Recorded Apixaban [Eliquis] 5 mg PO BID #60 tab 10/24/16 Nitroglycerin Sl Tabs [Nitrostat] 0.4 mg SUBLINGUAL Q5M PRN tab 02/28/17 Atorvastatin [Lipitor] 80 mg PO QAM #90 tab 04/05/20 Furosemide [Lasix] 40 mg PO BID@0900,1600 #180 tab 04/05/20 Mexiletine [Mexitil] 150 mg PO Q8HR #90 cap 04/05/20 Prasugrel [Effient] 10 mg PO DAILY #90 tab 04/05/20 Spironolactone [Aldactone] 25 mg PO DAILY #0 04/05/20 carvediloL [Coreg] 6.25 mg PO BID-W/MEALS #180 tab 04/05/20 lisinopriL [Zestril] 10 mg PO BID #180 tab 04/05/20 Cephalexin [Keflex] 500 mg PO Q6HR 10 Days #40 cap 06/29/20 amLODIPine [Norvasc] 5 mg PO DAILY #30 tab 06/30/20 Cephalexin [Keflex] 500 mg PO Q6HR #40 cap 01/01/21 Allergies Allergy/AdvReac Type Severity Reaction Status Date / Time No Known Allergies Allergy Verified 12/31/20 21:20 Review of Systems ROS Statement: Those systems with pertinent positive or pertinent negative responses have been documented in the HPI. ROS Other: All systems not noted in ROS Statement are negative. Past Medical History Past Medical History: Atrial Fibrillation, Heart Failure, COPD, Diabetes Mellitus, Hyperlipidemia, Hypertension, Osteoarthritis (OA), Sleep Apnea/CPAP/BIPAP Additional Past Medical History / Comment(s): CELLULITIS TO RLE, cpap See Dr House H&P for cardiac history. History of Any Multi-Drug Resistant Organisms: None Reported Past Surgical History: Ablation, Appendectomy, Heart Catheterization, Tonsillectomy Additional Past Surgical History / Comment(s): "Heart cath done for ablation" Past Anesthesia/Blood Transfusion Reactions: No Reported Reaction Additional Past Anesthesia/Blood Transfusion Reaction / Comment(s): grumpy after surgery Past Psychological History: No Psychological Hx Reported Smoking Status: Former smoker Past Alcohol Use History: None Reported Past Drug Use History: None Reported - Past Family History Mother Family Medical History: No Reported History Father Family Medical History: Myocardial Infarction (ID) General Exam Limitations: no limitations General appearance: alert, in no apparent distress Head exam: Present: atraumatic, normocephalic, normal inspection Neck exam: Present: normal inspection, full ROM. Absent: tenderness, meningismus, lymphadenopathy Respiratory exam: Present: normal lung sounds bilaterally. Absent: respiratory distress, wheezes, rales, rhonchi, stridor Cardiovascular Exam: Present: regular rate, normal rhythm, normal heart sounds. Absent: systolic murmur, diastolic murmur, rubs, gallop, clicks Extremities exam: Present: other (Bilateral lower extremities neurovascular intact, full range of motion patient reports pain with range of motion, right leg there is a small cut with mild erythema, slightly enlarged which he reports is normal, otherwise nontender) Back exam: Present: full ROM (Pain with range of motion). Absent: tenderness, paraspinal tenderness, vertebral tenderness Neurological exam: Present: reflexes normal. Absent: motor sensory deficit Course Vital Signs 12/31/20 21:20 Temperature 98.4 F Pulse Rate 66 Respiratory 16 Rate Blood Pressure 154/76 O2 Sat by Pulse 98 Oximetry Medical Decision Making - Medical Decision Making X-ray shows evidence of sprain of his lumbar spine. Patient symptoms more related to radiculopathy with no red flag symptoms. Patient does have a cut on his right leg with minimal erythema states concerned about infection will be placed on antibiotics with close follow-up. Disposition Clinical Impression: Leg wound, right, Leg pain, Lumbar radiculopathy, acute Disposition: HOME SELF-CARE Condition: Stable Instructions (If sedation given, give patient instructions): Leg Pain (ED) Additional Instructions: Please return to the Emergency Department if symptoms worsen or any other concerns. Prescriptions: Cephalexin [Keflex] 500 mg PO Q6HR #40 cap Is patient prescribed a controlled substance at d/c from ED?: No Referrals: Alana Mariano MD [Primary Care Provider] - 1-2 days Time of Disposition: 00:30
--- NOTE | 2020-12-31 23:19 | XR ---
EXAMINATION TYPE: XR lumbosacral spine min 4V DATE OF EXAM: 12/31/2020 COMPARISON: NONE HISTORY: Leg pain. Back pain TECHNIQUE: 5 views FINDINGS: There is a few millimeter anterior subluxation of L4 in relation L5. I see no spondylolysis . There is mild disc space narrowing in the lumbar spine. There is no compression fracture. There is minor spurring of the endplates. Sacroiliac joints are intact. IMPRESSION: Degenerative mild first-degree L4-5 spondylolisthesis. No compression fracture.
--- NOTE | 2020-12-31 23:20 | XR ---
EXAMINATION TYPE: XR pelvis AP view DATE OF EXAM: 12/31/2020 COMPARISON: NONE HISTORY: Leg pain TECHNIQUE: Single view FINDINGS: Pelvic ring is intact. Proximal femurs are intact. Sacroiliac joints are intact. The acetab sally appear intact. There is minor spurring of the acetabula. IMPRESSION: Mild spurring. No fracture. No significant hip joint space narrowing.
[2021-01-01] MEDS ORDERED: CEPHALEXIN 500MG STARTER PACK 4 CAP BTL PO STA (00:30)
[2021-01-01] MEDS ORDERED: ACET/COD 300 MG/30 MG STARTER PACK 6 TAB BTL PO STA (00:30)
[2021-01-01 00:36] VITALS: BP 148/74; PULSE 64; RESP 18
== END 2021-01-01 00:36 | disposition home or self-care (01) ==
LOC: EC 20:48
DX: S81.801A Unspecified open wound, right lower leg, initial encounter (principal); M79.605 Pain in left leg; M54.16 Radiculopathy, lumbar region; I11.0 Hypertensive heart disease with heart failure; I50.9 Heart failure, unspecified; I48.91 Unspecified atrial fibrillation; J44.9 Chronic obstructive pulmonary disease, unspecified; E11.9 Type 2 diabetes mellitus without complications; E78.5 Hyperlipidemia, unspecified; M19.90 Unspecified osteoarthritis, unspecified site; G47.30 Sleep apnea, unspecified; Z87.891 Personal history of nicotine dependence; Z79.01 Long term (current) use of anticoagulants; Z79.4 Long term (current) use of insulin; Z79.82 Long term (current) use of aspirin; X58.XXXA Exposure to other specified factors, initial encounter
CPT/HCPCS: 72110; 72170; 99283

== ENCOUNTER 2021-07-17 12:15 | Observation (INO) | payer MEDICARE ==
[2021-07-17] MEDS ORDERED: IBUPROFEN 600 MG TAB PO STA (12:34)
[2021-07-17] MEDS ORDERED: ACETAMINOPHEN TAB 325 MG TAB PO STA (12:34)
--- NOTE | 2021-07-17 13:19 | XR ---
EXAMINATION TYPE: XR chest 2V DATE OF EXAM: 07/17/2021 COMPARISON: Chest x-ray April 23, 2020 HISTORY: 3 (weeks months. TECHNIQUE: Frontal and lateral views of the chest are obtained. FINDINGS: There is no suspicious new focal air space opacity, pleural effusion, or pneumothorax seen . The cardiac silhouette size remains within normal limits. The osseous structures are intact. IMPRESSION: No acute pulmonary process.
[2021-07-17 14:08] LABS: ALT 20 U/L (4-49); AST 17 U/L (17-59); African American GFR (CKD) >90 (>60 ml/min/1.73 sqM); Alkaline Phosphatase 89 U/L (38-126); Anion Gap 12 mmol/L; Blood Urea Nitrogen 15 mg/dL (9-20); C Reactive Protein 4.7 mg/dL (<1.0); Calcium 8.9 mg/dL (8.4-10.2); Carbon Dioxide 22 mmol/L (22-30); Chloride 105 mmol/L (98-107); Glucose 66 mg/dL (74-99); Non-African American GFR(CKD) 87 (>60 ml/min/1.73 sqM); Potassium 4.1 mmol/L (3.5-5.1); Sodium 139 mmol/L (137-145); Total Bilirubin 0.8 mg/dL (0.2-1.3); Total Protein 6.6 g/dL (6.3-8.2)
[2021-07-17 14:31] LABS: Basophils # (A) 0.1 k/uL (0-0.2); Basophils % (A) 0 %; Eosinophils # (A) 0.1 k/uL (0-0.7); Eosinophils % (A) 0 %; HCT 45.6 % (39.0-53.0); HGB 14.8 gm/dL (13.0-17.5); Lymphocytes # (A) 1.1 k/uL (1.0-4.8); Lymphocytes % (A) 5 %; MCHC 32.5 g/dL (31.0-37.0); MCV 92.2 fL (80.0-100.0); Mean Platelet Volume 7.1; Monocytes # (A) 1.1 k/uL (0-1.0); Monocytes % (A) 5 %; Neutrophils # (A) 20.2 k/uL (1.3-7.7); Neutrophils % (A) 89 %; Platelet Count 293 k/uL (150-450); RBC 4.95 m/uL (4.30-5.90); RDW 15.6 % (11.5-15.5); WBC 22.7 k/uL (3.8-10.6)
[2021-07-17] MEDS ORDERED: PIPERACILLIN-TAZOBACTAM 3.375 GM in SODIUM CHLORIDE 0.9% 100 ML IVPB STA (14:52)
[2021-07-17] MEDS ORDERED: NALOXONE 0.4 MG/ML 1 ML VIAL IV PRN (14:57)
[2021-07-17] MEDS: SODIUM CHLORIDE 0.9% 500 ML 500 ML IV SCH ×2 (15:01→15:32)
[2021-07-17] MEDS ORDERED: VANCOMYCIN IV PER PHARMACY 1 EACH MISC MISCELLANE PRN (15:05)
[2021-07-17] MEDS ORDERED: VANCOMYCIN 2,250 MG in SODIUM CHLORIDE 0.9% 500 ML 500 ML IVPB STA (15:10)
[2021-07-17 15:15] LABS: Appearance,Urine Clear (Clear); Bilirubin,Urine Negative (Negative); Blood,Urine Negative (Negative); Color,Urine Yellow; Glucose,Urine (UA) 4+ (Negative); Ketones,Urine Negative (Negative); Leukocyte Esterase,Urine Negative (Negative); Mucus,Urine Rare /hpf; Nitrite,Urine Negative (Negative); PH, Urine 5.5 (5.0-8.0); Protein,Urine 2+ (Negative); RBC,Urine 2 /hpf (0-5); Specific Gravity,Urine 1.034 (1.001-1.035); Squamous Epithelial Cell,Urine <1 /hpf (0-4); WBC,Urine 1 /hpf (0-5)
--- NOTE | 2021-07-17 15:16 | ED ---
Fever HPI - General Chief Complaint: Fever Stated Complaint: Blood Infection Time Seen by Provider: 07/17/21 12:33 Source: patient, RN notes reviewed Mode of arrival: ambulatory Limitations: no limitations - History of Present Illness Initial Comments: Patient is a 66-year-old male that presents to the emergency department complaining of fever. He notes he does have a history of blood infections and a chronic history of right lower extremity cellulitis. Patient notes he came to the emergency room for evaluation. Patient denied any upper respiratory tract symptoms at this time. Patient was otherwise well-appearing in no apparent distress. He did have a mild fever upon arrival. He denied any chest pain shortness of breath headache nausea vomiting diarrhea constipation fatigue chills. - Related Data Home Medications Medication Instructions Recorded Confirmed metFORMIN HCL [Glucophage] 1,000 mg PO BID 10/18/16 07/17/21 Aspirin EC [Ecotrin Low Dose] 81 mg PO DAILY 02/26/17 07/17/21 Insulin Lispro [humaLOG Kwikpen] See Protocol SQ AC-TID 03/30/20 07/17/21 Amiodarone [Cordarone] 100 mg PO MOWEFR 06/05/20 07/17/21 Ascorbic Acid [Vitamin C] 1,000 mg PO BID 07/17/21 07/17/21 Atorvastatin [Lipitor] 80 mg PO DAILY 07/17/21 07/17/21 Cholecalciferol [Vitamin D3 (25 50 mcg PO BID 07/17/21 07/17/21 Mcg = 1000 Iu)] Empagliflozin [Jardiance] 10 mg PO DAILY 07/17/21 07/17/21 Ezetimibe [Zetia] 10 mg PO DAILY 07/17/21 07/17/21 Ibuprofen [Motrin Ib] 400 mg PO Q8H PRN 07/17/21 07/17/21 Insulin Glargine [Lantus Vial] 60 unit SQ BID 07/17/21 07/17/21 SILVER sulfADIAZINE Cream 1 applic TOPICAL DAILY PRN 07/17/21 07/17/21 [Silvadene 1% Cream] Spironolactone [Aldactone] 25 mg PO DAILY 07/17/21 07/17/21 carvediloL [Coreg] 6.25 mg PO BID 07/17/21 07/17/21 Previous Rx's Medication Instructions Recorded Apixaban [Eliquis] 5 mg PO BID #60 tab 10/24/16 Furosemide [Lasix] 40 mg PO BID@0900,1600 #180 tab 04/05/20 lisinopriL [Zestril] 10 mg PO BID #180 tab 04/05/20 amLODIPine [Norvasc] 5 mg PO DAILY #30 tab 06/30/20 Allergies Allergy/AdvReac Type Severity Reaction Status Date / Time No Known Allergies Allergy Verified 07/17/21 14:23 Review of Systems ROS Statement: Those systems with pertinent positive or pertinent negative responses have been documented in the HPI. ROS Other: All systems not noted in ROS Statement are negative. Past Medical History Past Medical History: Atrial Fibrillation, Heart Failure, COPD, Diabetes Mellitus, Hyperlipidemia, Hypertension, Osteoarthritis (OA), Sleep Apnea/CPAP/BIPAP Additional Past Medical History / Comment(s): CELLULITIS TO RLE, cpap See Dr House H&P for cardiac history. History of Any Multi-Drug Resistant Organisms: None Reported Past Surgical History: Ablation, Appendectomy, Heart Catheterization, Tonsillectomy Additional Past Surgical History / Comment(s): "Heart cath done for ablation" Past Anesthesia/Blood Transfusion Reactions: No Reported Reaction Additional Past Anesthesia/Blood Transfusion Reaction / Comment(s): grumpy after surgery Past Psychological History: No Psychological Hx Reported Smoking Status: Former smoker Past Alcohol Use History: None Reported Past Drug Use History: None Reported - Past Family History Mother Family Medical History: No Reported History Father Family Medical History: Myocardial Infarction ([place]) General Exam Limitations: no limitations General appearance: alert, in no apparent distress, obese Head exam: Present: atraumatic, normocephalic, normal inspection Eye exam: Present: normal appearance, PERRL, EOMI. Absent: scleral icterus, c onjunctival injection, periorbital swelling ENT exam: Present: normal exam, mucous membranes moist Neck exam: Present: normal inspection Respiratory exam: Present: normal lung sounds bilaterally. Absent: respiratory distress, wheezes, rales, rhonchi, stridor Cardiovascular Exam: Present: regular rate, normal rhythm, normal heart sounds. Absent: systolic murmur, diastolic murmur, rubs, gallop, clicks GI/Abdominal exam: Present: soft, normal bowel sounds. Absent: distended, tenderness, guarding, rebound, rigid Extremities exam: Present: normal inspection, full ROM, normal capillary refill, other (Right lower extremity swollen, consistent with chronic cellulitis.). Absent: tenderness, pedal edema, joint swelling, calf tenderness Neurological exam: Present: alert, oriented X3 Psychiatric exam: Present: normal affect, normal mood Skin exam: Present: warm, dry, intact, normal color. Absent: rash Course Vital Signs 07/17/21 07/17/21 07/17/21 12:30 13:32 14:43 Temperature 101.1 F H 100.2 F H Pulse Rate 85 105 H Respiratory 20 16 Rate Blood Pressure 146/81 136/82 O2 Sat by Pulse 95 94 L Oximetry Medical Decision Making - Medical Decision Making 66-year-old male complaining of fever and history of blood infections. Covid test, chest x-ray ordered. Covid test negative chest x-ray shows no acute card up on her process. Labs, influenza test ordered. Labs show a white count 22.7, rest of CMP is unremarkable. Lactic acid blood cultures and broad-spectrum antibiotics initiated. Case discussed with Dr. Pedroza. Dr. Mariano was consulted and will accept the admit with infectious disease on consult. - Lab Data Result diagrams: 07/17/21 13:40 07/17/21 13:40 Lab Results 07/17/21 07/17/21 07/17/21 Range/Units 12:54 13:40 13:40 WBC 22.7 H (3.8-10.6) k/uL RBC 4.95 (4.30-5.90) m/uL Hgb 14.8 (13.0-17.5) gm/dL Hct 45.6 (39.0-53.0) % MCV 92.2 (80.0-100.0) fL MCH 30.0 (25.0-35.0) pg MCHC 32.5 (31.0-37.0) g/dL RDW 15.6 H (11.5-15.5) % Plt Count 293 (150-450) k/uL MPV 7.1 Neutrophils % 89 % Lymphocytes % 5 % Monocytes % 5 % Eosinophils % 0 % Basophils % 0 % Neutrophils # 20.2 H (1.3-7.7) k/uL Lymphocytes # 1.1 (1.0-4.8) k/uL Monocytes # 1.1 H (0-1.0) k/uL Eosinophils # 0.1 (0-0.7) k/uL Basophils # 0.1 (0-0.2) k/uL ESR Cancelled Sodium 139 (137-145) mmol/L Potassium 4.1 (3.5-5.1) mmol/L Chloride 105 (98-107) mmol/L Carbon Dioxide 22 (22-30) mmol/L Anion Gap 12 mmol/L BUN 15 (9-20) mg/dL Creatinine 0.90 (0.66-1.25) mg/dL Est GFR (CKD-EPI)AfAm >90 (>60 ml/min/1.73 sqM) Est GFR (CKD-EPI)NonAf 87 (>60 ml/min/1.73 sqM) Glucose 66 L (74-99) mg/dL Plasma Lactic Acid Alan (0.7-2.0) mmol/L Calcium 8.9 (8.4-10.2) mg/dL Total Bilirubin 0.8 (0.2-1.3) mg/dL AST 17 (17-59) U/L ALT 20 (4-49) U/L Alkaline Phosphatase 89 (38-126) U/L C-Reactive Protein 4.7 H (<1.0) mg/dL Total Protein 6.6 (6.3-8.2) g/dL Albumin 4.0 (3.5-5.0) g/dL Urine Color Urine Appearance (Clear) Urine pH (5.0-8.0) Ur Specific [place] (1.001-1.035) Urine Protein (Negative) Urine Glucose (UA) (Negative) Urine Ketones (Negative) Urine Blood (Negative) Urine Nitrite (Negative) Urine Bilirubin (Negative) Urine Urobilinogen (<2.0) mg/dL Ur Leukocyte Esterase (Negative) Urine RBC (0-5) /hpf Urine WBC (0-5) /hpf Ur Squamous Epith Cells (0-4) /hpf Urine Mucus (None) /hpf Coronavirus (PCR) Not Detected (Not Detectd) Influenza Type A RNA (Not Detectd) Influenza Type B (PCR) (Not Detectd) 07/17/21 07/17/21 07/17/21 Range/Units 13:44 15:09 15:09 WBC (3.8-10.6) k/uL RBC (4.30-5.90) m/uL Hgb (13.0-17.5) gm/dL Hct (39.0-53.0) % MCV (80.0-100.0) fL MCH (25.0-35.0) pg MCHC (31.0-37.0) g/dL RDW (11.5-15.5) % Plt Count (150-450) k/uL MPV Neutrophils % % Lymphocytes % % Monocytes % % Eosinophils % % Basophils % % Neutrophils # (1.3-7.7) k/uL Lymphocytes # (1.0-4.8) k/uL Monocytes # (0-1.0) k/uL Eosinophils # (0-0.7) k/uL Basophils # (0-0.2) k/uL ESR Sodium (137-145) mmol/L Potassium (3.5-5.1) mmol/L Chloride (98-107) mmol/L Carbon Dioxide (22-30) mmol/L Anion Gap mmol/L BUN (9-20) mg/dL Creatinine (0.66-1.25) mg/dL Est GFR (CKD-EPI)AfAm (>60 ml/min/1.73 sqM) Est GFR (CKD-EPI)NonAf (>60 ml/min/1.73 sqM) Glucose (74-99) mg/dL Plasma Lactic Acid Alan 1.4 (0.7-2.0) mmol/L Calcium (8.4-10.2) mg/dL Total Bilirubin (0.2-1.3) mg/dL AST (17-59) U/L ALT (4-49) U/L Alkaline Phosphatase (38-126) U/L C-Reactive Protein (<1.0) mg/dL Total Protein (6.3-8.2) g/dL Albumin (3.5-5.0) g/dL Urine Color Yellow Urine Appearance Clear (Clear) Urine pH 5.5 (5.0-8.0) Ur Specific [place] 1.034 (1.001-1.035) Urine Protein 2+ H (Negative) Urine Glucose (UA) 4+ H (Negative) Urine Ketones Negative (Negative) Urine Blood Negative (Negative) Urine Nitrite Negative (Negative) Urine Bilirubin Negative (Negative) Urine Urobilinogen 2.0 (<2.0) mg/dL Ur Leukocyte Esterase Negative (Negative) Urine RBC 2 (0-5) /hpf Urine WBC 1 (0-5) /hpf Ur Squamous Epith Cells <1 (0-4) /hpf Urine Mucus Rare H (None) /hpf Coronavirus (PCR) (Not Detectd) Influenza Type A RNA Not Detected (Not Detectd) Influenza Type B (PCR) Not Detected (Not Detectd) - EKG Data EKG shows normal: sinus rhythm Rate: normal EKG Comments: Ventricular rate 75 bpm, [place] interval 216 ms, QRS duration 118 ms, QTC 421 ms, sinus rhythm with first-degree AV block, right superior axis deviation, nonspecific intraventricular conduction a light, prolonged QT, abnormal ECG. - Radiology Data Radiology results: report reviewed, image reviewed Chest x-ray: No acute pulmonary process. Disposition Clinical Impression: Leukocytosis, Sepsis, CHF (congestive heart failure) Disposition: ADMITTED IP TO THIS HOSP Condition: Good Is patient prescribed a controlled substance at d/c from ED?: No Referrals: Alana Mariano MD [Primary Care Provider] - 1-2 days Time of Disposition: 15:41
[2021-07-17] MEDS: SODIUM CHLORIDE 0.9% 1,000 ML IV SCH ×2 (16:08→21:28)
[2021-07-17] MEDS ORDERED: ceFAZolin 3 GM in SODIUM CHLORIDE 0.9% 100 ML IVPB SCH (16:45)
[2021-07-17] MEDS ORDERED: AMIODARONE 100 MG TAB PO SCH (17:00)
[2021-07-17 18:11] LABS: Glucose,Whole Blood 70 mg/dL (75-99)
[2021-07-17] MEDS: INSULIN ASPART (NovoLOG) 100 UNIT/ML VIAL SQ SCH (18:19)
--- NOTE | 2021-07-17 18:41 | P.HPIM ---
History of Present Illness H&P Date: 07/17/21 Chief Complaint: Right lower extremity cellulitis HISTORY OF PRESENT ILLNESS: This is a 66-year-old male with a previous medical history significant for hypertension and hypertensive cardiovascular disease, diabetes mellitus type 2 with hyperglycemia, paroxysmal atrial fibrillation, coronary artery disease status post PCI of the LCx back on 04/02/2020, vitamin D deficiency, ischemic cardiopathy, with a chronic systolic heart failure obstructive sleep apnea with obesity hypoventilation syndrome, patient presented to the emergency department with fever and increased redness and swelling of the right lower extremity his lactic acid came back negative his white count were elevated, because of that patient was admitted to the hospital for right lower extremity cellulitis with SIRS he was started on IV antibiotic in the form of Zosyn as well as vancomycin with infectious disease consultation from Dr. Richardson, blood cultures were obtained. REVIEW OF SYSTEMS: Constitutional: Positive for fever, no chills, no night sweats. No weight change. Positive for weakness, positive for fatigue no lethargy. No daytime sleepiness. HEENT: No headache. No blurred vision or double vision, no loss of vision. No loss of Hearing, no ringing in the ears, no dizziness. No nasal drainage or congestion. No epistaxis. No sore throat. Lungs: No shortness of breath, no cough, no sputum production. No wheezing. Reports dyspnea with activity. Cardiovascular: No chest pain, positive for lower extremity edema. No palpitations. No paroxysmal nocturnal dyspnea. No orthopnea. No lightheadedness or dizziness. No syncopal episodes. Abdominal: Reports abdominal pain. No nausea, vomiting. No diarrhea. No constipation. No bloody or tarry stools reports loss of appetite. Genitourinary: No dysuria, increased frequency, urgency. No urinary retention. Musculoskeletal: No myalgias. No muscle weakness, no gait dysfunction, no frequent falls. Positive for back pain. No neck pain. Integumentary: right lower extremity wound with cellulitis and increased erythema of the right lower extremity. No change in hair or nails. Neurologic: No aphasia. No facial droop. No change in mentation. No head injury. No headache. No paralysis. No paresthesia. Psychiatric: No depression. No anxiety. No mood swings. Endocrine: abnormal blood sugar, morbidly obese. PAST MEDICAL HISTORY: CAD post-PCI of the LCx Hypertension and hypertensive cardiovascular disease. Hyperlipidemia Diabetes mellitus type 2. Paroxysmal atrial fibrillation. Vitamin D deficiency. Ischemic cardiomyopathy. Chronic systolic heart failure. Obstructive sleep apnea Chronic venous stasis with stasis dermatitis. PAST SURGICAL HISTORY: Left heart catheterization with PCI of the LCx 03/25/2020. Colonoscopy Cardiac ablation for atria fibrillation in 2017. Appendectomy. Tonsillectomy. SOCIAL HISTORY: Patient used to smoke cigar 3 a day since the age of 15 and quit at the age of 59 patient started smoking on 07/06/2004, patient drinks 1-2 cups of coffee, he denies any marijuana use he denies any alcohol use or abuse. FAMILY HISTORY: Father at age of 55 from myocardial infarction mother at the age of 67 from sepsis patient has one sister 69-year-old who is healthy. PHYSICAL EXAMINATION: General: 66-year-old male laying down in bed in no apparent distress. HEENT: Head is atraumatic, normocephalic, pupils were equal round reactive to light and recommendation, extraocular muscle movement were intact, sclera nonicteric, conjunctivae were pale, mucous membranes of the mouth are somewhat dry. Neck: Supple, no JVP, normal carotid upstroke bilaterally, no lymphadenopathy. Chest: Decreased breath sounds at the bases, few rhonchi, no expiratory wheezes, no chest wall tenderness, no intercostal retractions. Heart: First heart sound is normal, second heart sounds normal there is systolic ejection murmur 2/6 located in the left sternal border. Abdomen: Soft, nontender, nondistended, positive bowel sounds, there is no hepatosplenomegaly Extremities: There is +2 edema no calf tenderness DP +2 bilaterally, there is right lower extremity cellulitis w Neurologic examination: Patient is awake alert and oriented X 3, cranial nerves II-12 appear grossly intact, muscle power were 5 out of 5 in upper extremities and 5 out of 5 in bilateral lower extremities, deep tendon reflexes normal bilaterally. ASSESSMENT AND PLAN: 1. Cellulitis with SIRS. Blood cultures were obtained, discontinue Zosyn and start the patient on cefazolin 3 g IV piggyback every 8 hours, continue v ancomycin with pharmacy to dose the peak and trough, apply Silvadene cream with wraps on a daily basis , consult ID Dr. Richardson. 2. CAD post-PCI of the LCx. Continue patient on aspirin 81 mg once every day, carvedilol 6.25 mg orally twice every day, atorvastatin 80 mg once every day, Zetia 10 mg orally once every day. 3. Hypertension and hypertensive cardio vascular disease. Continue lisinopril 10 mg every day, carvedilol 6.25 mg orally twice every day. 4. Hyperlipidemia. Continue patient on atorvastatin 80 mg orally once every day, continue Zetia 10 mg orally once every day. 5. Diabetes mellitus type 2. Continue patient on Lantus 60 units at bedtime, continue sliding scale insulin, continue metformin 1000 mg orally twice every day, continue with Jardiance 10 mg orally daily if available. 6. Paroxysmal atrial fibrillation. Continue patient on Eliquis 5 mg orally twice every day, amiodarone 100 mg orally Thursday was in Thursday. 7. Vitamin D deficiency. Continue vitamin D supplement. 8. Chronic systolic heart failure. Hep-Lock IV continue patient on Lasix 40 mg orally twice every day, spironolactone 25 mg orally once every day, continue lisinopril 10 mg orally once every day, continue carvedilol 6.25 mg orally twice every day per he 9. Obstructive sleep apnea. Continue patient on CPAP. 10. Chronic venous stasis with stasis dermatitis and recurrent cellulitis of the right lower extremity. Continue treatment as in paragraph #1. 11. DVT prophylaxis. Continue patient on Eliquis 5 mg orally twice every day. 12. GI prophylaxis. Continue patient on Pepcid 20 mg orally once every day. 13. Admit to inpatient. Estimated length of stay 2 midnights. 14. Full code. Past Medical History Past Medical History: Atrial Fibrillation, Heart Failure, COPD, Diabetes Mellitus, Hyperlipidemia, Hypertension, Osteoarthritis (OA), Sleep Apnea/CPAP/BIPAP Additional Past Medical History / Comment(s): CELLULITIS TO RLE, cpap See Dr House H&P for cardiac history. History of Any Multi-Drug Resistant Organisms: None Reported Past Surgical History: Ablation, Appendectomy, Heart Catheterization, Tonsillectomy Additional Past Surgical History / Comment(s): "Heart cath done for ablation" Past Anesthesia/Blood Transfusion Reactions: No Reported Reaction Additional Past Anesthesia/Blood Transfusion Reaction / Comment(s): grumpy after surgery Past Psychological History: No Psychological Hx Reported Smoking Status: Former smoker Past Alcohol Use History: None Reported Past Drug Use History: None Reported - Past Family History Mother Family Medical History: No Reported History Father Family Medical History: Myocardial Infarction ([place]) Medications and Allergies Home Medications Medication Instructions Recorded Confirmed Type metFORMIN HCL [Glucophage] 1,000 mg PO BID 10/18/16 07/17/21 History Apixaban [Eliquis] 5 mg PO BID #60 tab 10/24/16 07/17/21 Rx Aspirin EC [Ecotrin Low Dose] 81 mg PO DAILY 02/26/17 07/17/21 History Insulin Lispro [humaLOG Kwikpen] See Protocol SQ AC-TID 03/30/20 07/17/21 History Furosemide [Lasix] 40 mg PO BID@0900,1600 #180 tab 04/05/20 07/17/21 Rx lisinopriL [Zestril] 10 mg PO BID #180 tab 04/05/20 07/17/21 Rx Amiodarone [Cordarone] 100 mg PO MOWEFR 06/05/20 07/17/21 History amLODIPine [Norvasc] 5 mg PO DAILY #30 tab 06/30/20 07/17/21 Rx Ascorbic Acid [Vitamin C] 1,000 mg PO BID 07/17/21 07/17/21 History Atorvastatin [Lipitor] 80 mg PO DAILY 07/17/21 07/17/21 History Cholecalciferol [Vitamin D3 (25 50 mcg PO BID 07/17/21 07/17/21 History Mcg = 1000 Iu)] Empagliflozin [Jardiance] 10 mg PO DAILY 07/17/21 07/17/21 History Ezetimibe [Zetia] 10 mg PO DAILY 07/17/21 07/17/21 History Ibuprofen [Motrin Ib] 400 mg PO Q8H PRN 07/17/21 07/17/21 History Insulin Glargine [Lantus Vial] 60 unit SQ BID 07/17/21 07/17/21 History SILVER sulfADIAZINE Cream 1 applic TOPICAL DAILY PRN 07/17/21 07/17/21 History [Silvadene 1% Cream] Spironolactone [Aldactone] 25 mg PO DAILY 07/17/21 07/17/21 History carvediloL [Coreg] 6.25 mg PO BID 07/17/21 07/17/21 History Allergies Allergy/AdvReac Type Severity Reaction Status Date / Time No Known Allergies Allergy Verified 07/17/21 14:23 Physical Exam Vitals: Vital Signs Temp Pulse Resp BP Pulse Ox 07/17/21 14:43 105 H 16 136/82 94 L 07/17/21 13:32 100.2 F H 07/17/21 12:30 101.1 F H 85 20 146/81 95 Intake and Output 07/17/21 07/17/21 07/17/21 06:59 14:59 22:59 Other: Weight 158.757 kg Results CBC & Chem 7: 07/17/21 13:40 07/17/21 13:40 Labs: Abnormal Lab Results - Last 24 Hours (Table) 07/17/21 07/17/21 07/17/21 Range/Units 13:40 13:40 15:09 WBC 22.7 H (3.8-10.6) k/uL RDW 15.6 H (11.5-15.5) % Neutrophils # 20.2 H (1.3-7.7) k/uL Monocytes # 1.1 H (0-1.0) k/uL Glucose 66 L (74-99) mg/dL C-Reactive Protein 4.7 H (<1.0) mg/dL Urine Protein 2+ H (Negative) Urine Glucose (UA) 4+ H (Negative) Urine Mucus Rare H (None) /hpf
[2021-07-17 20:50] LABS: Glucose,Whole Blood 181 mg/dL (75-99)
[2021-07-17] MEDS: INSULIN DETEMIR (LEVEMIR) 100 UNIT/ML SYR SQ SCH (21:27)
[2021-07-17] MEDS: FAMOTIDINE 20 MG TAB PO SCH (21:27)
[2021-07-17] MEDS: carvediloL 6.25 MG TAB PO SCH (21:28)
[2021-07-17] MEDS: lisinopriL 10 MG TAB PO SCH (21:28)
[2021-07-17] MEDS: ASCORBIC ACID 500 MG TAB PO SCH (21:28)
[2021-07-17] MEDS: ACETAMINOPHEN TAB 325 MG TAB PO PRN (21:28)
[2021-07-17] MEDS: APIXABAN 5 MG TAB PO SCH (21:28)
[2021-07-17] MEDS: metFORMIN 500 MG TAB PO SCH (21:28)
[2021-07-17] MEDS: CHOLECALCIFEROL 25 MCG (1000 IU) TABLET PO SCH (21:28)
--- NOTE | 2021-07-17 23:08 | P.CONS ---
History of Present Illness - Reason for Consult Consult date: 07/17/21 sepsis Requesting physician: Alana Mariano - Chief Complaint fever x 1 day - History of Present Illness History of present illness : Patient is 66-year-old male with a past medical he significant for recurrent right lower extremity cellulitis in this patient presented to the hospital this afternoon for evaluation of fever in this patient symptoms started the day before presentation to the hospital fever with rigors and chills patient mention his right leg has been more swollen and red and has been complaining of some dull aching pain to the right leg intensity 4 to 5-10 and no radiation patient currently do not have any skin breakdown or any drainage he denies having headache no URI symptoms no chest pain shortness of other cough no nausea no vomiting no abdominal pain or diarrhea patient on presentation to the hospital to have a fever of 101 deformed right he was tachycardic in no hypoxemia if he did have a white count of 22.7 with a left shift creatinine was normal urine was negative for the patient was negative influenza PCR was negative patient did have a chest x-ray that was negative for acute cardiopulmonary process patient was started on vancomycin infectious disease was consulted for further management of antibiotic therapy Review of system: CONSTITUTIONAL: Positive for weakness along with the fever. EYES: No complaint. ENT: No complaint. RESPIRATORY: No complaint. CARDIOVASCULAR: No complaint. GENITOURINARY: No complaint. GASTROINTESTINAL: No complaint. MUSCULOSKELETAL: No complaint. INTEGUMENTARY as per history of present illness PSYCHOLOGIC: No complaint. ENDOCRINE: No complaint. NEUROLOGIC: No complaint. Past medical history : Reviewed, documented below Past surgical history : Reviewed, documented below Social history: Reviewed, documented below Medications: Reviewed, as documented below EXAMINATION: Vital sigans= Reviewed and documented below GENERAL DESCRIPTION: Elderly male lying in bed, no distress. No tachypnea or accessory muscle of respiration use. HEENT: Shows Pallor , no scleral icterus. Oral mucous membrane is dry. NECK: Trachea central, no thyromegaly. LUNGS: Unlabored breathing. Clear to auscultation anteriorly. No wheeze or crackle. HEART: S1, S2, regular rate and rhythm. ABDOMEN: Soft, no tenderness , guarding or rigidity EXTREMITIES: Right leg with diffuse swelling and redness warm and tender to touch no skin breakdown or drainage. SKIN: No rash, no masses palpable. NEUROLOGICAL: The patient is awake, alert, oriented x3, mood and affect normal. LABS AND RADIOLOGY: Reviewed results see below Assessment : Patient presented to hospital with sepsis at this point did have fever tachycardia elevated white count source is acute right lower extremity cellulitis this patient did have diffuse swelling of his leg streptococcal disease, clinically doubt MRSA or gram-negative infection Plan: 1-discontinue vancomycin 2-cefazolin 3 g every 8 hours 3-Marked 8 of the redness right leg and Moreno wrap right leg from just above the toe to below the knee We will follow on clinical condition and cultures to further adjust medication if needed Thank you for this consultation we will follow the patient along with you Past Medical History Past Medical History: Atrial Fibrillation, Heart Failure, COPD, Diabetes Mellitus, Hyperlipidemia, Hypertension, Osteoarthritis (OA), Sleep Apnea/CPAP/BIPAP Additional Past Medical History / Comment(s): CELLULITIS TO RLE, cpap See Dr House H&P for cardiac history. History of Any Multi-Drug Resistant Organisms: None Reported Past Surgical History: Ablation, Appendectomy, Heart Catheterization, Tonsillectomy Additional Past Surgical History / Comment(s): "Heart cath done for ablation" Past Anesthesia/Blood Transfusion Reactions: No Reported Reaction Additional Past Anesthesia/Blood Transfusion Reaction / Comm: grumpy after surgery Past Psychological History: No Psychological Hx Reported Smoking Status: Former smoker Past Alcohol Use History: None Reported Past Drug Use History: None Reported - Past Family History Mother Family Medical History: No Reported History Father Family Medical History: Myocardial Infarction (ND) Medications and Allergies Home Medications Medication Instructions Recorded Confirmed Type metFORMIN HCL [Glucophage] 1,000 mg PO BID 10/18/16 07/17/21 History Apixaban [Eliquis] 5 mg PO BID #60 tab 10/24/16 07/17/21 Rx Aspirin EC [Ecotrin Low Dose] 81 mg PO DAILY 02/26/17 07/17/21 History Insulin Lispro [humaLOG Kwikpen] See Protocol SQ AC-TID 03/30/20 07/17/21 History Furosemide [Lasix] 40 mg PO BID@0900,1600 #180 tab 04/05/20 07/17/21 Rx lisinopriL [Zestril] 10 mg PO BID #180 tab 04/05/20 07/17/21 Rx Amiodarone [Cordarone] 100 mg PO MOWEFR 06/05/20 07/17/21 History amLODIPine [Norvasc] 5 mg PO DAILY #30 tab 06/30/20 07/17/21 Rx Ascorbic Acid [Vitamin C] 1,000 mg PO BID 07/17/21 07/17/21 History Atorvastatin [Lipitor] 80 mg PO DAILY 07/17/21 07/17/21 History Cholecalciferol [Vitamin D3 (25 50 mcg PO BID 07/17/21 07/17/21 History Mcg = 1000 Iu)] Empagliflozin [Jardiance] 10 mg PO DAILY 07/17/21 07/17/21 History Ezetimibe [Zetia] 10 mg PO DAILY 07/17/21 07/17/21 History Ibuprofen [Motrin Ib] 400 mg PO Q8H PRN 07/17/21 07/17/21 History Insulin Glargine [Lantus Vial] 60 unit SQ BID 07/17/21 07/17/21 History SILVER sulfADIAZINE Cream 1 applic TOPICAL DAILY PRN 07/17/21 07/17/21 History [Silvadene 1% Cream] Spironolactone [Aldactone] 25 mg PO DAILY 07/17/21 07/17/21 History carvediloL [Coreg] 6.25 mg PO BID 07/17/21 07/17/21 History Allergies Allergy/AdvReac Type Severity Reaction Status Date / Time No Known Allergies Allergy Verified 07/17/21 14:23 Physical Exam Vitals: Vital Signs Temp Pulse Resp BP Pulse Ox 07/17/21 14:43 105 H 16 136/82 94 L 07/17/21 13:32 100.2 F H 07/17/21 12:30 101.1 F H 85 20 146/81 95 Intake and Output 07/17/21 07/17/21 07/17/21 06:59 14:59 22:59 Other: Weight 158.757 kg Results CBC & Chem 7: 07/17/21 13:40 07/17/21 13:40 Labs: Abnormal Lab Results - Last 24 Hours (Table) 07/17/21 07/17/21 07/17/21 Range/Units 13:40 13:40 15:09 WBC 22.7 H (3.8-10.6) k/uL RDW 15.6 H (11.5-15.5) % Neutrophils # 20.2 H (1.3-7.7) k/uL Monocytes # 1.1 H (0-1.0) k/uL Glucose 66 L (74-99) mg/dL C-Reactive Protein 4.7 H (<1.0) mg/dL Urine Protein 2+ H (Negative) Urine Glucose (UA) 4+ H (Negative) Urine Mucus Rare H (None) /hpf
[2021-07-18] MEDS: ACETAMINOPHEN TAB 325 MG TAB PO PRN ×2 (03:27→21:24)
[2021-07-18] MEDS: ceFAZolin 3 GM in SODIUM CHLORIDE 0.9% 100 ML IVPB SCH ×3 (03:27→21:11)
[2021-07-18] MEDS ORDERED: VANCOMYCIN 2,250 MG in SODIUM CHLORIDE 0.9% 500 ML 500 ML IVPB SCH (04:00)
[2021-07-18 07:20] LABS: Glucose,Whole Blood 84 mg/dL (75-99)
[2021-07-18] MEDS: SODIUM CHLORIDE 0.9% 1,000 ML IV SCH (08:58)
[2021-07-18] MEDS: NON FORMULARY DRUG (Empagliflozin [Jardiance] 10 MG Tablet) PO SCH (08:59)
[2021-07-18] MEDS: INSULIN ASPART (NovoLOG) 100 UNIT/ML VIAL SQ SCH ×3 (09:11→17:13)
[2021-07-18] MEDS: carvediloL 6.25 MG TAB PO SCH ×2 (09:13→21:09)
[2021-07-18] MEDS: ASCORBIC ACID 500 MG TAB PO SCH ×2 (09:13→21:10)
[2021-07-18] MEDS: FUROSEMIDE 40 MG TAB PO SCH ×2 (09:13→17:13)
[2021-07-18] MEDS: ATORVASTATIN 80 MG TAB PO SCH (09:13)
[2021-07-18] MEDS: amLODIPine 5 MG TAB PO SCH (09:13)
[2021-07-18] MEDS: metFORMIN 500 MG TAB PO SCH ×2 (09:13→21:10)
[2021-07-18] MEDS: EZETIMIBE 10 MG TAB PO SCH (09:13)
[2021-07-18] MEDS: SPIRONOLACTONE 25 MG TAB PO SCH (09:13)
[2021-07-18] MEDS: ASPIRIN 81 MG PO SCH (09:13)
[2021-07-18] MEDS: CHOLECALCIFEROL 25 MCG (1000 IU) TABLET PO SCH ×2 (09:13→21:09)
[2021-07-18] MEDS: lisinopriL 10 MG TAB PO SCH ×2 (09:13→21:10)
[2021-07-18] MEDS: APIXABAN 5 MG TAB PO SCH ×2 (09:13→21:10)
[2021-07-18] MEDS: INSULIN DETEMIR (LEVEMIR) 100 UNIT/ML SYR SQ SCH ×2 (09:14→21:10)
[2021-07-18 11:07] LABS: Basophils # (A) 0.09 X 10*3/uL (0.00-0.10); Basophils % (A) 0.4 %; Eosinophils # (A) 0 X 10*3/uL (0.04-0.35); Eosinophils % (A) 0 %; HCT 41.1 % (39.6-50.0); Immature Grans, Automated 0.6 %; Lymphocytes # (A) 1.46 X 10*3/uL (0.90-5.00); Lymphocytes % (A) 6.7 %; MCH 28.9 pg (27.0-32.0); MCHC 31.6 g/dL (32.0-37.0); MCV 91.3 fL (80.0-97.0); Mean Platelet Volume 9.5 fL (9.5-12.2); Monocytes # (A) 1.13 X 10*3/uL (0.20-1.00); Monocytes % (A) 5.2 %; NRBC Per 100 WBC 0 /100 WBCS (0.0-0.0); Neutrophils % (A) 87.1 %; Platelet Count 249 X 10*3/uL (140-440); RDW 16.3 % (11.5-14.5); WBC 21.91 X 10*3/uL (4.50-10.00)
[2021-07-18 11:19] LABS: African American GFR (CKD) 82.2 (60.0-200.0); Albumin 3.6 g/dL (3.8-4.9); Albumin/Globulin Ratio 1.81 (1.60-3.17); Anion Gap 14.2 mmol/L (10.00-18.00); BUN/Creat Ratio 14.02 Ratio (12.00-20.00); Calcium 8.2 mg/dL (8.7-10.3); Carbon Dioxide 20.4 mmol/L (20.0-27.5); Potassium 3.6 mmol/L (3.5-5.5); Total Bilirubin 0.5 mg/dL (0.30-1.20); Total Protein 5.6 g/dL (6.2-8.2)
[2021-07-18 11:57] LABS: Glucose,Whole Blood 119 mg/dL (75-99)
[2021-07-18 16:45] LABS: Glucose,Whole Blood 181 mg/dL (75-99)
--- NOTE | 2021-07-18 19:13 | PN ---
PROGRESS NOTE DATE OF SERVICE: 07/18/2021 REASON FOR FOLLOWUP: Sepsis with right lower extremity cellulitis. INTERVAL HISTORY: The patient is afebrile. The patient is breathing comfortably. Denies any chest pain, shortness of breath or cough. No nausea, vomiting, abdominal pain. Overall pain and discomfort to the right leg has slightly decreased. PHYSICAL EXAMINATION: Blood pressure 137/81, pulse of 81, temperature 97.9. He is 94% on room air. General description is an elderly male lying in bed in no distress. Respiratory system: Unlabored breathing, clear to auscultation anteriorly. Heart S1, S2. Regular rate and rhythm. Abdomen soft, no tenderness. Right leg swelling has slightly decreased. LABS: Hemoglobin 13, white count 21.9, creatinine 1.1. DIAGNOSTIC IMPRESSION AND PLAN: Patient with sepsis due to the right lower extremity cellulitis in this patient did have an extensive cellulitis and diffuse ( ) streptococcal disease. He has responded to cefazolin, to continue. White count will be monitored closely. He will benefit from Moreno wrap to keep the swelling down and continue supportive care. MMODL / IJN: [id number] /
[2021-07-18 20:33] LABS: Glucose,Whole Blood 212 mg/dL (75-99)
[2021-07-18] MEDS: FAMOTIDINE 20 MG TAB PO SCH (21:10)
[2021-07-19] MEDS: ceFAZolin 3 GM in SODIUM CHLORIDE 0.9% 100 ML IVPB SCH ×3 (04:01→22:17)
[2021-07-19 07:14] LABS: Glucose,Whole Blood 159 mg/dL (75-99)
--- NOTE | 2021-07-19 07:52 | P.PN ---
Subjective Progress Note Date: 07/18/21 HISTORY OF PRESENT ILLNESS: This is a 66-year-old male with a previous medical history significant for hyp ertension and hypertensive cardiovascular disease, diabetes mellitus type 2 with hyperglycemia, paroxysmal atrial fibrillation, coronary artery disease status post PCI of the LCx back on 04/02/2020, vitamin D deficiency, ischemic cardiopathy, with a chronic systolic heart failure obstructive sleep apnea with obesity hypoventilation syndrome, patient presented to the emergency department with fever and increased redness and swelling of the right lower extremity his lactic acid came back negative his white count were elevated, because of that patient was admitted to the hospital for right lower extremity cellulitis with SIRS he was started on IV antibiotic in the form of Zosyn as well as vancomycin with infectious disease consultation from Dr. Richardson, blood cultures were obtained. 07/18: Patient denies having any cough or sputum production. He did utilize CPAP during the night and states he slept well. Patient's been seen by Dr. Richardson and placed on Keflex. Decreased warmth to the cellulitis, we will add in Silvadene wraps. REVIEW OF SYSTEMS: Constitutional: Positive for fever, no chills, no night sweats. No weight change. Positive for weakness, positive for fatigue no lethargy. No daytime sleepiness. HEENT: No headache. No blurred vision or double vision, no loss of vision. No loss of Hearing, no ringing in the ears, no dizziness. No nasal drainage or congestion. No epistaxis. No sore throat. Lungs: No shortness of breath, no cough, no sputum production. No wheezing. Reports dyspnea with activity. Cardiovascular: No chest pain, positive for lower extremity edema. No palpitations. No paroxysmal nocturnal dyspnea. No orthopnea. No lightheadedness or dizziness. No syncopal episodes. Abdominal: Reports abdominal pain. No nausea, vomiting. No diarrhea. No constipation. No bloody or tarry stools reports loss of appetite. Genitourinary: No dysuria, increased frequency, urgency. No urinary retention. Musculoskeletal: No myalgias. No muscle weakness, no gait dysfunction, no frequent falls. Positive for back pain. No neck pain. Integumentary: right lower extremity wound with cellulitis and increased erythema of the right lower extremity. No change in hair or nails. Neurologic: No aphasia. No facial droop. No change in mentation. No head injury. No headache. No paralysis. No paresthesia. Psychiatric: No depression. No anxiety. No mood swings. Endocrine: abnormal blood sugar, morbidly obese. PHYSICAL EXAMINATION: General: 66-year-old male waiting in his room and appears to be comfortable. HEENT: Head is atraumatic, normocephalic, pupils were equal round reactive to light and recommendation, extraocular muscle movement were intact, sclera nonicteric, conjunctivae were pale, mucous membranes of the mouth are somewhat dry. Neck: Supple, no JVP, normal carotid upstroke bilaterally, no lymphadenopathy. Chest: Decreased breath sounds at the bases, few rhonchi, no expiratory wheezes, no chest wall tenderness, no intercostal retractions. Heart: First heart sound is normal, second heart sounds normal there is systolic ejection murmur 2/6 located in the left sternal border. Abdomen: Soft, nontender, nondistended, positive bowel sounds, there is no hepatosplenomegaly Extremities: There is +2 edema no calf tenderness DP +2 bilaterally, there is right lower extremity cellulitis w Neurologic examination: Patient is awake alert and oriented X 3, cranial nerves II-12 appear grossly intact, muscle power were 5 out of 5 in upper extremities and 5 out of 5 in bilateral lower extremities, deep tendon reflexes normal bilaterally. ASSESSMENT AND PLAN: 1. Cellulitis with SIRS. Blood cultures were obtained, discontinue Zosyn and start the patient on cefazolin 3 g IV piggyback every 8 hours, continue vancomycin with pharmacy to dose the peak and trough, apply Silvadene cream with wraps on a daily basis , consult ID Dr. Richardson she did. 2. CAD post-PCI of the LCx. Continue patient on aspirin 81 mg once every day, carvedilol 6.25 mg orally twice every day, atorvastatin 80 mg once every day, Zetia 10 mg orally once every day. 3. Hypertension and hypertensive cardio vascular disease. Continue lisinopril 10 mg every day, carvedilol 6.25 mg orally twice every day. 4. Hyperlipidemia. Continue patient on atorvastatin 80 mg orally once every day, continue Zetia 10 mg orally once every day. 5. Diabetes mellitus type 2. Continue patient on Lantus 60 units at bedtime, continue sliding scale insulin, continue metformin 1000 mg orally twice every day, continue with Jardiance 10 mg orally daily if available. 6. Paroxysmal atrial fibrillation. Continue patient on Eliquis 5 mg orally twice every day, amiodarone 100 mg orally Thursday was in Thursday. 7. Vitamin D deficiency. Continue vitamin D supplement. 8. Chronic systolic heart failure. Hep-Lock IV continue patient on Lasix 40 mg orally twice every day, spironolactone 25 mg orally once every day, continue lisinopril 10 mg orally once every day, continue carvedilol 6.25 mg orally twice every day per he 9. Obstructive sleep apnea. Continue patient on CPAP. 10. Chronic venous stasis with stasis dermatitis and recurrent cellulitis of the right lower extremity. Continue treatment as in paragraph #1. 11. DVT prophylaxis. Continue patient on Eliquis 5 mg orally twice every day. 12. GI prophylaxis. Continue patient on Pepcid 20 mg orally once every day. Full code. DISCHARGE PLAN HOME Impression and plan of care have been directed as dictated by the signing physician. Lakeisha Lu nurse practitioner acting as scribe for signing physician. Objective - Vital Signs Vital signs: Vital Signs Temp 99.9 F H 07/18/21 01:39 Pulse 86 07/18/21 01:39 Resp 19 07/18/21 01:39 BP 160/80 07/18/21 05:46 Pulse Ox 94 L 07/18/21 01:39 Intake & Output 07/17/21 07/18/21 07/18/21 18:59 06:59 18:59 Intake Total 1500 Balance 1500 Weight 158.757 kg 158.757 kg Intake: Intake, IV Titration 1500 Amount Sodium Chloride 0.9% 1, 1300 000 ml @ 130 mls/hr IV . [id number] DOUGLAS Rx#:[id number] ceFAZolin 3 gm In Sodium 200 Chloride 0.9% 100 ml @ 200 mls/hr IVPB Q8H DOUGLAS Rx#:[id number] Other: # Voids 4 - Labs CBC & Chem 7: 07/18/21 06:22 07/19/21 06:27 Labs: Abnormal Lab Results - Last 24 Hours (Table) 07/17/21 07/17/21 07/17/21 Range/Units 13:40 13:40 15:09 WBC 22.7 H (3.8-10.6) k/uL RDW 15.6 H (11.5-15.5) % Neutrophils # 20.2 H (1.3-7.7) k/uL Monocytes # 1.1 H (0-1.0) k/uL Glucose 66 L (74-99) mg/dL POC Glucose (mg/dL) (75-99) mg/dL C-Reactive Protein 4.7 H (<1.0) mg/dL Urine Protein 2+ H (Negative) Urine Glucose (UA) 4+ H (Negative) Urine Mucus Rare H (None) /hpf 07/17/21 07/17/21 Range/Units 18:10 20:46 WBC (3.8-10.6) k/uL RDW (11.5-15.5) % Neutrophils # (1.3-7.7) k/uL Monocytes # (0-1.0) k/uL Glucose (74-99) mg/dL POC Glucose (mg/dL) 70 L 181 H (75-99) mg/dL C-Reactive Protein (<1.0) mg/dL Urine Protein (Negative) Urine Glucose (UA) (Negative) Urine Mucus (None) /hpf
[2021-07-19] MEDS: NON FORMULARY DRUG (Empagliflozin [Jardiance] 10 MG Tablet) PO SCH (08:08)
[2021-07-19] MEDS: INSULIN DETEMIR (LEVEMIR) 100 UNIT/ML SYR SQ SCH ×2 (08:14→22:18)
[2021-07-19] MEDS: APIXABAN 5 MG TAB PO SCH ×2 (08:15→22:18)
[2021-07-19] MEDS: lisinopriL 10 MG TAB PO SCH ×2 (08:15→22:19)
[2021-07-19] MEDS: metFORMIN 500 MG TAB PO SCH ×2 (08:15→22:18)
[2021-07-19] MEDS: INSULIN ASPART (NovoLOG) 100 UNIT/ML VIAL SQ SCH ×3 (08:15→16:54)
[2021-07-19] MEDS: amLODIPine 5 MG TAB PO SCH (08:15)
[2021-07-19] MEDS: FUROSEMIDE 40 MG TAB PO SCH ×2 (08:15→16:54)
[2021-07-19] MEDS: CHOLECALCIFEROL 25 MCG (1000 IU) TABLET PO SCH ×2 (08:15→22:18)
[2021-07-19] MEDS: ASPIRIN 81 MG PO SCH (08:15)
[2021-07-19] MEDS: ASCORBIC ACID 500 MG TAB PO SCH ×2 (08:16→22:18)
[2021-07-19] MEDS: carvediloL 6.25 MG TAB PO SCH ×2 (08:16→22:19)
[2021-07-19] MEDS: ATORVASTATIN 80 MG TAB PO SCH (08:16)
[2021-07-19] MEDS: SPIRONOLACTONE 25 MG TAB PO SCH (08:16)
[2021-07-19] MEDS: EZETIMIBE 10 MG TAB PO SCH (08:17)
[2021-07-19] MEDS ORDERED: AMIODARONE 100 MG TAB PO SCH (09:00)
[2021-07-19 11:26] LABS: Glucose,Whole Blood 221 mg/dL (75-99)
--- NOTE | 2021-07-19 14:49 | P.PN ---
Subjective Progress Note Date: 07/19/21 HISTORY OF PRESENT ILLNESS: This is a 66-year-old male with a previous medical history significant for hyp ertension and hypertensive cardiovascular disease, diabetes mellitus type 2 with hyperglycemia, paroxysmal atrial fibrillation, coronary artery disease status post PCI of the LCx back on 04/02/2020, vitamin D deficiency, ischemic cardiopathy, with a chronic systolic heart failure obstructive sleep apnea with obesity hypoventilation syndrome, patient presented to the emergency department with fever and increased redness and swelling of the right lower extremity his lactic acid came back negative his white count were elevated, because of that patient was admitted to the hospital for right lower extremity cellulitis with SIRS he was started on IV antibiotic in the form of Zosyn as well as vancomycin with infectious disease consultation from Dr. Richardson, blood cultures were obtained. 07/18: Patient denies having any cough or sputum production. He did utilize CPAP during the night and states he slept well. Patient's been seen by Dr. Richardson and placed on Kefzol. Decreased warmth to the cellulitis, we will add in Silvadene wraps. 07/19: Patient complains of sore throat, nausea last night resolved. He slept ok last night. No shortnees of breath. He is afebrile, heart rate 71, blood pressu re 143/74, pulse ox 97% on room air. Capillary blood glucose running between 159 and 212. A states that his legs were not wrapped yesterday. We have ordered Silvadene wraps for the right leg and playing moreno wrap can be applied to the left lower extremity. Nurse was preparing to do this today and patient did not want to have Moreno wraps placed and wanted only ALF hose. Patient is continued on Kefzol. REVIEW OF SYSTEMS: Constitutional: Positive for fever, no chills, no night sweats. No weight change. Positive for weakness, positive for fatigue no lethargy. No daytime sleepiness. HEENT: No headache. No blurred vision or double vision, no loss of vision. No loss of Hearing, no ringing in the ears, no dizziness. No nasal drainage or congestion. No epistaxis. No sore throat. Lungs: No shortness of breath, no cough, no sputum production. No wheezing. Reports dyspnea with activity. Cardiovascular: No chest pain, positive for lower extremity edema. No palpitations. No paroxysmal nocturnal dyspnea. No orthopnea. No lightheadedness or dizziness. No syncopal episodes. Abdominal: Reports abdominal pain. No nausea, vomiting. No diarrhea. No constipation. No bloody or tarry stools reports loss of appetite. Genitourinary: No dysuria, increased frequency, urgency. No urinary retention. Musculoskeletal: No myalgias. No muscle weakness, no gait dysfunction, no frequent falls. Positive for back pain. No neck pain. Integumentary: right lower extremity wound with cellulitis and increased erythema of the right lower extremity. No change in hair or nails. Neurologic: No aphasia. No facial droop. No change in mentation. No head injury. No headache. No paralysis. No paresthesia. Psychiatric: No depression. No anxiety. No mood swings. Endocrine: abnormal blood sugar, morbidly obese. PHYSICAL EXAMINATION: General: 66-year-old male waiting in his room and appears to be comfortable. HEENT: Head is atraumatic, normocephalic, pupils were equal round reactive to light and recommendation, sclera nonicteric, conjunctivae were pale, mucous membranes of the mouth are somewhat dry. Neck: Supple, no JVP, normal carotid upstroke bilaterally, no lymphadenopathy. Chest: Decreased breath sounds at the bases, few rhonchi, no expiratory wheezes, no chest wall tenderness, no intercostal retractions. Heart: First heart sound is normal, second heart sounds normal there is systolic ejection murmur 2/6 located in the left sternal border. Abdomen: Soft, nontender, nondistended, positive bowel sounds, there is no hepatosplenomegaly Extremities: There is +2 edema no calf tenderness DP +2 bilaterally, there is right lower extremity cellulitis. Neurologic examination: Patient is awake alert and oriented X 3, cranial nerves II-12 appear grossly intact, muscle power were 5 out of 5 in upper extremities and 5 out of 5 in bilateral lower extremities, deep tendon reflexes normal bilaterally. ASSESSMENT AND PLAN: 1. Cellulitis with SIRS. Blood cultures were obtained, discontinue Zosyn and start the patient on cefazolin 3 g IV piggyback every 8 hours, apply Silvadene cream with wraps on a daily basis, consult ID Dr. Richardson appreciated 2. CAD post-PCI of the LCx. Continue patient on aspirin 81 mg once every day, carvedilol 6.25 mg orally twice every day, atorvastatin 80 mg once every day, Zetia 10 mg orally once every day. 3. Hypertension and hypertensive cardio vascular disease. Continue lisinopril 10 mg every day, carvedilol 6.25 mg orally twice every day. 4. Hyperlipidemia. Continue patient on atorvastatin 80 mg orally once every day, continue Zetia 10 mg orally once every day. 5. Diabetes mellitus type 2. Continue patient on Lantus 60 units at bedtime, continue sliding scale insulin, continue metformin 1000 mg orally twice every day, continue with Jardiance 10 mg orally daily if available. 6. Paroxysmal atrial fibrillation. Continue patient on Eliquis 5 mg orally twice every day, amiodarone 100 mg orally Thursday was in Thursday. 7. Vitamin D deficiency. Continue vitamin D supplement. 8. Chronic systolic heart failure. Hep-Lock IV continue patient on Lasix 40 mg orally twice every day, spironolactone 25 mg orally once every day, continue lisinopril 10 mg orally once every day, continue carvedilol 6.25 mg orally twice every day per he 9. Obstructive sleep apnea. Continue patient on CPAP. 10. Chronic venous stasis with stasis dermatitis and recurrent cellulitis of the right lower extremity. Continue treatment as in paragraph #1. 11. DVT prophylaxis. Continue patient on Eliquis 5 mg orally twice every day. 12. GI prophylaxis. Continue patient on Pepcid 20 mg orally once every day. Full code. DISCHARGE PLAN HOME Impression and plan of care have been directed as dictated by the signing physician. Lakeisha Lu nurse practitioner acting as scribe for signing physician. Objective - Vital Signs Vital signs: Vital Signs Temp 97.5 F L 07/19/21 02:13 Pulse 71 07/19/21 02:13 Resp 17 07/19/21 02:13 BP 143/74 07/19/21 02:13 Pulse Ox 95 07/19/21 02:13 Intake & Output 07/18/21 07/19/21 07/19/21 18:59 06:59 18:59 Intake Total 688 Output Total 1250 Balance 688 -1250 Intake: Oral 688 Output: Urine 1250 Other: # Voids 4 - Labs CBC & Chem 7: 07/18/21 06:22 07/19/21 06:27 Labs: Abnormal Lab Results - Last 24 Hours (Table) 07/18/21 07/18/21 07/18/21 Range/Units 06:22 06:22 11:56 WBC 21.91 H (4.50-10.00) X 10*3/uL MCHC 31.6 L (32.0-37.0) g/dL RDW 16.3 H (11.5-14.5) % Immature Gran # 0.13 H (0.00-0.04) X 10*3/uL Neutrophils # 19.10 H (1.80-7.70) X 10*3/uL Monocytes # 1.13 H (0.20-1.00) X 10*3/uL Eosinophils # 0 L (0.04-0.35) X 10*3/uL POC Glucose (mg/dL) 119 H (75-99) mg/dL Calcium 8.2 L (8.7-10.3) mg/dL Total Protein 5.6 L (6.2-8.2) g/dL Albumin 3.6 L (3.8-4.9) g/dL 07/18/21 07/18/21 07/19/21 Range/Units 16:44 20:31 07:13 WBC (4.50-10.00) X 10*3/uL MCHC (32.0-37.0) g/dL RDW (11.5-14.5) % Immature Gran # (0.00-0.04) X 10*3/uL Neutrophils # (1.80-7.70) X 10*3/uL Monocytes # (0.20-1.00) X 10*3/uL Eosinophils # (0.04-0.35) X 10*3/uL POC Glucose (mg/dL) 181 H 212 H 159 H (75-99) mg/dL Calcium (8.7-10.3) mg/dL Total Protein (6.2-8.2) g/dL Albumin (3.8-4.9) g/dL Microbiology - Last 24 Hours (Table) 07/17/21 15:09 Blood Culture - Preliminary Blood No Growth after 24 hours 07/17/21 15:09 Blood Culture - Preliminary Blood No Growth after 24 hours
[2021-07-19 16:42] LABS: Glucose,Whole Blood 150 mg/dL (75-99)
[2021-07-19 21:24] LABS: Glucose,Whole Blood 334 mg/dL (75-99)
[2021-07-19] MEDS: FAMOTIDINE 20 MG TAB PO SCH (22:19)
--- NOTE | 2021-07-19 22:56 | PN ---
PROGRESS NOTE DATE OF SERVICE: 07/19/2021 REASON FOR FOLLOWUP: Right lower extremity cellulitis. INTERVAL HISTORY: Patient is afebrile, breathing comfortably. Denies having any chest pain, shortness of breath or cough. No abdominal pain or any worsening pain to the right lower extremity. PHYSICAL EXAMINATION: Blood pressure 124/70 with a pulse of 73, temperature of 98.7. He is 99% on General description is an elderly male up in the chair in no distress. Respiratory system: Unlabored breathing, clear to auscultation anteriorly. Heart S1, S2. Regular rate and rhythm. Abdomen: Soft, no tenderness. Right leg swelling is slightly decreased. LABS: No new labs have been obtained today. Blood culture has been negative. DIAGNOSTIC IMPRESSION AND PLAN: Patient admitted to the hospital with right lower extremity cellulitis. This patient did have some improvement in his cellulitis. Patient will continue Cefazolin for another 24 to 48 hours before transition to oral antibiotics. We will repeat tomorrow and monitor clinical course closely. MMODL / IJN: [id number] /
[2021-07-20] MEDS: ceFAZolin 3 GM in SODIUM CHLORIDE 0.9% 100 ML IVPB SCH ×3 (03:08→20:47)
[2021-07-20 07:12] LABS: Glucose,Whole Blood 84 mg/dL (75-99)
[2021-07-20] MEDS: INSULIN ASPART (NovoLOG) 100 UNIT/ML VIAL SQ SCH ×3 (07:21→16:57)
[2021-07-20] MEDS: NON FORMULARY DRUG (Empagliflozin [Jardiance] 10 MG Tablet) PO SCH (08:01)
[2021-07-20] MEDS: INSULIN DETEMIR (LEVEMIR) 100 UNIT/ML SYR SQ SCH ×2 (08:48→20:47)
[2021-07-20] MEDS: FUROSEMIDE 40 MG TAB PO SCH ×2 (08:49→16:57)
[2021-07-20] MEDS: ATORVASTATIN 80 MG TAB PO SCH (08:49)
[2021-07-20] MEDS: CHOLECALCIFEROL 25 MCG (1000 IU) TABLET PO SCH ×2 (08:49→20:47)
[2021-07-20] MEDS: metFORMIN 500 MG TAB PO SCH ×2 (08:50→20:48)
[2021-07-20] MEDS: carvediloL 6.25 MG TAB PO SCH ×2 (08:50→20:48)
[2021-07-20] MEDS: APIXABAN 5 MG TAB PO SCH ×2 (08:50→20:47)
[2021-07-20] MEDS: lisinopriL 10 MG TAB PO SCH ×2 (08:51→20:48)
[2021-07-20] MEDS: EZETIMIBE 10 MG TAB PO SCH (08:51)
[2021-07-20] MEDS: ASCORBIC ACID 500 MG TAB PO SCH ×2 (08:51→20:48)
[2021-07-20] MEDS: ASPIRIN 81 MG PO SCH (08:51)
[2021-07-20] MEDS: amLODIPine 5 MG TAB PO SCH (08:52)
[2021-07-20] MEDS: SPIRONOLACTONE 25 MG TAB PO SCH (08:52)
--- NOTE | 2021-07-20 09:21 | P.PN ---
Subjective Progress Note Date: 07/20/21 HISTORY OF PRESENT ILLNESS: This is a 66-year-old male with a previous medical history significant for hyp ertension and hypertensive cardiovascular disease, diabetes mellitus type 2 with hyperglycemia, paroxysmal atrial fibrillation, coronary artery disease status post PCI of the LCx back on 04/02/2020, vitamin D deficiency, ischemic cardiopathy, with a chronic systolic heart failure obstructive sleep apnea with obesity hypoventilation syndrome, patient presented to the emergency department with fever and increased redness and swelling of the right lower extremity his lactic acid came back negative his white count were elevated, because of that patient was admitted to the hospital for right lower extremity cellulitis with SIRS he was started on IV antibiotic in the form of Zosyn as well as vancomycin with infectious disease consultation from Dr. Richardson, blood cultures were obtained. 07/18: Patient denies having any cough or sputum production. He did utilize CPAP during the night and states he slept well. Patient's been seen by Dr. Richardson and placed on Kefzol. Decreased warmth to the cellulitis, we will add in Silvadene wraps. 07/19: Patient complains of sore throat, nausea last night resolved. He slept ok last night. No shortnees of breath. He is afebrile, heart rate 71, blood pressu re 143/74, pulse ox 97% on room air. Capillary blood glucose running between 159 and 212. A states that his legs were not wrapped yesterday. We have ordered Silvadene wraps for the right leg and playing moreno wrap can be applied to the left lower extremity. Nurse was preparing to do this today and patient did not want to have Moreno wraps placed and wanted only ALF hose. Patient is continued on Kefzol. 07/20: Patient is sitting up in a recliner his feeling a lot better today, he denies any chest pain, or any shortness breath, he has no sore throat today, he has not had a bowel movement yet, he has no abdominal pain he is tolerating his treatment very well, his right lower extremity appears a lot better, we'll continue the IV antibiotic for one more day that he would be switched to oral cephalexin and he will be discharged home tomorrow morning. REVIEW OF SYSTEMS: Constitutional: Positive for fever, no chills, no night sweats. No weight change. Positive for weakness, positive for fatigue no lethargy. No daytime sleepiness. HEENT: No headache. No blurred vision or double vision, no loss of vision. No loss of Hearing, no ringing in the ears, no dizziness. No nasal drainage or congestion. No epistaxis. No sore throat. Lungs: No shortness of breath, no cough, no sputum production. No wheezing. Reports dyspnea with activity. Cardiovascular: No chest pain, positive for lower extremity edema. No palpitations. No paroxysmal nocturnal dyspnea. No orthopnea. No lighthead edness or dizziness. No syncopal episodes. Abdominal: Reports abdominal pain. No nausea, vomiting. No diarrhea. No constipation. No bloody or tarry stools reports loss of appetite. Genitourinary: No dysuria, increased frequency, urgency. No urinary retention. Musculoskeletal: No myalgias. No muscle weakness, no gait dysfunction, no frequent falls. Positive for back pain. No neck pain. Integumentary: right lower extremity wound with cellulitis and increased erythema of the right lower extremity. No change in hair or nails. Neurologic: No aphasia. No facial droop. No change in mentation. No head injury. No headache. No paralysis. No paresthesia. Psychiatric: No depression. No anxiety. No mood swings. Endocrine: abnormal blood sugar, morbidly obese. PHYSICAL EXAMINATION: General: 66-year-old male waiting in his room and appears to be comfortable. HEENT: Head is atraumatic, normocephalic, pupils were equal round reactive to light and recommendation, sclera nonicteric, conjunctivae were pale, mucous membranes of the mouth are somewhat dry. Neck: Supple, no JVP, normal carotid upstroke bilaterally, no lymphadenopathy. Chest: Decreased breath sounds at the bases, few rhonchi, no expiratory wheezes, no chest wall tenderness, no intercostal retractions. Heart: First heart sound is normal, second heart sounds normal there is systolic ejection murmur 2/6 located in the left sternal border. Abdomen: Soft, nontender, nondistended, positive bowel sounds, there is no hepatosplenomegaly Extremities: There is +2 edema no calf tenderness DP +2 bilaterally, there is right lower extremity cellulitis. Neurologic examination: Patient is awake alert and oriented X 3, cranial nerves II-12 appear grossly intact, muscle power were 5 out of 5 in upper extremities and 5 out of 5 in bilateral lower extremities, deep tendon reflexes normal bilaterally. ASSESSMENT AND PLAN: 1. Cellulitis with SIRS. Blood cultures were obtained, on cefazolin 3 g IV piggyback every 8 hours, apply Silvadene cream with wraps on a daily basis, we will switch to oral cephalexin tomorrow morning and sent him home. 2. CAD post-PCI of the LCx. Continue patient on aspirin 81 mg once every day, carvedilol 6.25 mg orally twice every day, atorvastatin 80 mg once every day, Zetia 10 mg orally once every day. 3. Hypertension and hypertensive cardio vascular disease. Continue lisinopril 10 mg every day, carvedilol 6.25 mg orally twice every day. 4. Hyperlipidemia. Continue patient on atorvastatin 80 mg orally once every day, continue Zetia 10 mg orally once every day. 5. Diabetes mellitus type 2. Continue patient on Lantus 60 units at bedtime, continue sliding scale insulin, continue metformin 1000 mg orally twice every day, continue with Jardiance 10 mg orally daily if available. 6. Paroxysmal atrial fibrillation. Continue patient on Eliquis 5 mg orally twice every day, amiodarone 100 mg orally Thursday was in Thursday. 7. Vitamin D deficiency. Continue vitamin D supplement. 8. Chronic systolic heart failure. Hep-Lock IV continue patient on Lasix 40 mg orally twice every day, spironolactone 25 mg orally once every day, continue lisinopril 10 mg orally once every day, continue carvedilol 6.25 mg orally twice every day per he 9. Obstructive sleep apnea. Continue patient on CPAP. 10. Chronic venous stasis with stasis dermatitis and recurrent cellulitis of the right lower extremity. Continue treatment as in paragraph #1. 11. DVT prophylaxis. Continue patient on Eliquis 5 mg orally twice every day. 12. GI prophylaxis. Continue patient on Pepcid 20 mg orally once every day. Full code. DISCHARGE PLAN HOME in AM Objective - Vital Signs Vital signs: Vital Signs Temp 97.7 F 07/20/21 02:00 Pulse 69 07/20/21 02:00 Resp 18 07/20/21 02:00 BP 149/69 07/20/21 02:00 Pulse Ox 96 07/20/21 02:00 Intake & Output 07/19/21 07/20/21 07/20/21 18:59 06:59 18:59 Intake Total 180 Balance 180 Intake: Oral 180 Other: Voiding Method Toilet Urinal # Voids 15 3 # Bowel Movements 1 0 - Labs CBC & Chem 7: 07/18/21 06:22 07/19/21 06:27 Labs: Abnormal Lab Results - Last 24 Hours (Table) 07/19/21 07/19/21 07/19/21 Range/Units 11:25 16:40 21:23 POC Glucose (mg/dL) 221 H 150 H 334 H (75-99) mg/dL Microbiology - Last 24 Hours (Table) 07/17/21 15:09 Blood Culture - Preliminary Blood No Growth after 48 hours 07/17/21 15:09 Blood Culture - Preliminary Blood No Growth after 48 hours
[2021-07-20 12:06] LABS: Glucose,Whole Blood 170 mg/dL (75-99)
[2021-07-20 12:30] LABS: African American GFR (CKD) 89.2 (60.0-200.0); Anion Gap 22.5 mmol/L (10.00-18.00); BUN/Creat Ratio 20.7 Ratio (12.00-20.00); Blood Urea Nitrogen 20.7 mg/dL (9.0-27.0); C Reactive Protein 12.7 mg/dL (0.00-0.80); Calcium 8.7 mg/dL (8.7-10.3); Carbon Dioxide 17.5 mmol/L (20.0-27.5); Potassium 3.7 mmol/L (3.5-5.5)
[2021-07-20 13:43] LABS: Basophils # (A) 0.05 X 10*3/uL (0.00-0.10); Basophils % (A) 0.3 %; Eosinophils # (A) 0.35 X 10*3/uL (0.04-0.35); Eosinophils % (A) 2.2 %; HCT 45.1 % (39.6-50.0); HGB 13.9 g/dL (13.0-17.0); Immature Grans, Automated 0.4 %; Lymphocytes # (A) 2.48 X 10*3/uL (0.90-5.00); Lymphocytes % (A) 15.8 %; MCH 27.9 pg (27.0-32.0); MCHC 30.8 g/dL (32.0-37.0); MCV 90.6 fL (80.0-97.0); Mean Platelet Volume 9.8 fL (9.5-12.2); Monocytes # (A) 1.21 X 10*3/uL (0.20-1.00); Monocytes % (A) 7.7 %; NRBC Per 100 WBC 0 /100 WBCS (0.0-0.0); Neutrophils # (A) 11.49 X 10*3/uL (1.80-7.70); Neutrophils % (A) 73.6 %; Platelet Count 322 X 10*3/uL (140-440); RBC 4.98 X 10*6/uL (4.40-5.60); RDW 16.1 % (11.5-14.5); WBC 15.65 X 10*3/uL (4.50-10.00)
--- NOTE | 2021-07-20 16:39 | PN ---
PROGRESS NOTE DATE OF SERVICE: 07/20/2021. REASON FOR FOLLOWUP: Right lower extremity cellulitis. INTERVAL HISTORY: The patient is afebrile. The patient is currently breathing comfortably. Denies any chest pain, shortness of breath, cough, no abdominal pain. Pain in the right leg is currently controlled. Swelling is slightly increased. PHYSICAL EXAMINATION: Blood pressure 132/71, with a pulse of 79, temperature 98.4. He is 99% on General description is an elderly male lying in bed in no distress. Respiratory system: Unlabored breathing, clear to auscultation anteriorly. Heart S1, S2. Regular rate and rhythm. Abdomen soft, no tenderness. Right leg swelling and redness has decreased. LABORATORY DATA: Hemoglobin is 13, white count down to 15, creatinine 1.0. DIAGNOSTIC IMPRESSION AND PLAN: This patient admitted in the hospital with sepsis secondary to right lower extremity cellulitis in this patient clinically responded to Rocephin to continue antibiotics and monitor clinical course closely. MMODL / IJN: [id number] /
[2021-07-20 16:44] LABS: Glucose,Whole Blood 169 mg/dL (75-99)
[2021-07-20 20:21] LABS: Glucose,Whole Blood 180 mg/dL (75-99)
[2021-07-20] MEDS: FAMOTIDINE 20 MG TAB PO SCH (20:47)
[2021-07-21] MEDS: ceFAZolin 3 GM in SODIUM CHLORIDE 0.9% 100 ML IVPB SCH ×2 (03:16→11:01)
[2021-07-21 07:06] LABS: Glucose,Whole Blood 79 mg/dL (75-99)
[2021-07-21] MEDS: INSULIN ASPART (NovoLOG) 100 UNIT/ML VIAL SQ SCH ×2 (07:15→11:52)
[2021-07-21 08:35] VITALS: BP 143/87; PULSE 76; RESP 16; TEMP 98.4
[2021-07-21] MEDS: INSULIN DETEMIR (LEVEMIR) 100 UNIT/ML SYR SQ SCH (08:55)
[2021-07-21] MEDS: APIXABAN 5 MG TAB PO SCH (08:55)
[2021-07-21] MEDS: ASCORBIC ACID 500 MG TAB PO SCH (08:56)
[2021-07-21] MEDS: FUROSEMIDE 40 MG TAB PO SCH (08:56)
[2021-07-21] MEDS: ASPIRIN 81 MG PO SCH (08:56)
[2021-07-21] MEDS: SPIRONOLACTONE 25 MG TAB PO SCH (08:56)
[2021-07-21] MEDS: NON FORMULARY DRUG (Empagliflozin [Jardiance] 10 MG Tablet) PO SCH (08:57)
[2021-07-21] MEDS: EZETIMIBE 10 MG TAB PO SCH (08:57)
[2021-07-21] MEDS: metFORMIN 500 MG TAB PO SCH (08:57)
[2021-07-21] MEDS: lisinopriL 10 MG TAB PO SCH (08:58)
[2021-07-21] MEDS: CHOLECALCIFEROL 25 MCG (1000 IU) TABLET PO SCH (08:58)
[2021-07-21] MEDS: ATORVASTATIN 80 MG TAB PO SCH (08:58)
[2021-07-21] MEDS: carvediloL 6.25 MG TAB PO SCH (08:58)
[2021-07-21] MEDS: amLODIPine 5 MG TAB PO SCH (08:58)
[2021-07-21 11:47] LABS: Glucose,Whole Blood 152 mg/dL (75-99)
--- NOTE | 2021-07-21 12:09 | P.DS ---
Providers Date of admission: 07/17/21 14:57 Expected date of discharge: 07/21/21 Attending physician: Alana Mariano Consults: 07/17/21 15:06 Consult Physician Urgent Consulting Provider: Varghese Richardson Consult Reason/Comments: sepsis Do you want consulting provider notified?: Yes Primary care physician: Alana Mariano Hospital Course: HISTORY OF PRESENT ILLNESS: This is a 66-year-old male with a previous medical history significant for hypertension and hypertensive cardiovascular disease, diabetes mellitus type 2 with hyperglycemia, paroxysmal atrial fibrillation, coronary artery disease status post PCI of the LCx back on 04/02/2020, vitamin D deficiency, ischemic cardiopathy, with a chronic systolic heart failure obstructive sleep apnea with obesity hypoventilation syndrome, patient presented to the emergency department with fever and increased redness and swelling of the right lower extremity his lactic acid came back negative his white count were elevated, because of that patient was admitted to the hospital for right lower extremity cellulitis with SIRS he was started on IV antibiotic in the form of Zosyn as well as vancomycin with infectious disease consultation from Dr. Richardson, blood cultures were obtained. 07/18: Patient denies having any cough or sputum production. He did utilize CPAP during the night and states he slept well. Patient's been seen by Dr. Richardson and placed on Kefzol. Decreased warmth to the cellulitis, we will add in Silvadene wraps. 07/19: Patient complains of sore throat, nausea last night resolved. He slept ok last night. No shortnees of breath. He is afebrile, heart rate 71, blood pressure 143/74, pulse ox 97% on room air. Capillary blood glucose running between 159 and 212. A states that his legs were not wrapped yesterday. We have ordered Silvadene wraps for the right leg and playing moreno wrap can be applied to the left lower extremity. Nurse was preparing to do this today and patient did not want to have Moreno wraps placed and wanted only ALF hose. Patient is continued on Kefzol. 07/20: Patient is sitting up in a recliner his feeling a lot better today, he denies any chest pain, or any shortness breath, he has no sore throat today, he has not had a bowel movement yet, he has no abdominal pain he is tolerating his treatment very well, his right lower extremity appears a lot better, we'll continue the IV antibiotic for one more day that he would be switched to oral cephalexin and he will be discharged home tomorrow morning. Discharge diagnoses: 1. Cellulitis with SIRS. 2. CAD post-PCI of the LCx. 3. Hypertension and hypertensive cardio vascular disease. 4. Hyperlipidemia. 5. Diabetes mellitus type 2. 6. Paroxysmal atrial fibrillation. 7. Vitamin D deficiency. 8. Chronic systolic heart failure. 9. Obstructive sleep apnea. 10. Chronic venous stasis with stasis dermatitis and recurrent cellulitis of the right lower extremity. Patient Condition at Discharge: Good Plan - Discharge Summary Discharge Rx Participant: No New Discharge Prescriptions: No Action metFORMIN HCL [Glucophage] 1,000 mg PO BID Apixaban [Eliquis] 5 mg PO BID #60 tab Aspirin EC [Ecotrin Low Dose] 81 mg PO DAILY Insulin Lispro [humaLOG Kwikpen] See Protocol SQ AC-TID Furosemide [Lasix] 40 mg PO BID@0900,1600 #180 tab lisinopriL [Zestril] 10 mg PO BID #180 tab Amiodarone [Cordarone] 100 mg PO MOWEFR amLODIPine [Norvasc] 5 mg PO DAILY #30 tab Ascorbic Acid [Vitamin C] 1,000 mg PO BID Atorvastatin [Lipitor] 80 mg PO DAILY Empagliflozin [Jardiance] 10 mg PO DAILY Ibuprofen [Motrin Ib] 400 mg PO Q8H PRN PRN Reason: Pain SILVER sulfADIAZINE Cream [Silvadene 1% Cream] 1 applic TOPICAL DAILY PRN PRN Reason: WOUND CARE Cholecalciferol [Vitamin D3 (25 Mcg = 1000 Iu)] 50 mcg PO BID Ezetimibe [Zetia] 10 mg PO DAILY Insulin Glargine [Lantus Vial] 60 unit SQ BID Spironolactone [Aldactone] 25 mg PO DAILY carvediloL [Coreg] 6.25 mg PO BID Discharge Medication List metFORMIN HCL [Glucophage] 1,000 mg PO BID 10/18/16 [History] Apixaban [Eliquis] 5 mg PO BID #60 tab 10/24/16 [Rx] Aspirin EC [Ecotrin Low Dose] 81 mg PO DAILY 02/26/17 [History] Insulin Lispro [humaLOG Kwikpen] See Protocol SQ AC-TID 03/30/20 [History] Furosemide [Lasix] 40 mg PO BID@0900,1600 #180 tab 04/05/20 [Rx] lisinopriL [Zestril] 10 mg PO BID #180 tab 04/05/20 [Rx] Amiodarone [Cordarone] 100 mg PO MOWEFR 06/05/20 [History] amLODIPine [Norvasc] 5 mg PO DAILY #30 tab 06/30/20 [Rx] Ascorbic Acid [Vitamin C] 1,000 mg PO BID 07/17/21 [History] Atorvastatin [Lipitor] 80 mg PO DAILY 07/17/21 [History] Cholecalciferol [Vitamin D3 (25 Mcg = 1000 Iu)] 50 mcg PO BID 07/17/21 [History] Empagliflozin [Jardiance] 10 mg PO DAILY 07/17/21 [History] Ezetimibe [Zetia] 10 mg PO DAILY 07/17/21 [History] Ibuprofen [Motrin Ib] 400 mg PO Q8H PRN 07/17/21 [History] Insulin Glargine [Lantus Vial] 60 unit SQ BID 07/17/21 [History] SILVER sulfADIAZINE Cream [Silvadene 1% Cream] 1 applic TOPICAL DAILY PRN 07/17/21 [History] Spironolactone [Aldactone] 25 mg PO DAILY 07/17/21 [History] carvediloL [Coreg] 6.25 mg PO BID 07/17/21 [History] Follow up Appointment(s)/Referral(s): Alana Mariano MD [Primary Care Provider] - 1-2 days
[2021-07-21 12:44] LABS: Basophils # (A) 0.08 X 10*3/uL (0.00-0.10); Basophils % (A) 0.5 %; Eosinophils # (A) 0.46 X 10*3/uL (0.04-0.35); Eosinophils % (A) 2.9 %; HCT 44.9 % (39.6-50.0); HGB 14.1 g/dL (13.0-17.0); Immature Grans, Automated 0.4 %; Lymphocytes % (A) 15.7 %; MCH 28.3 pg (27.0-32.0); MCHC 31.4 g/dL (32.0-37.0); MCV 90.2 fL (80.0-97.0); Mean Platelet Volume 9.5 fL (9.5-12.2); Monocytes # (A) 1.34 X 10*3/uL (0.20-1.00); Monocytes % (A) 8.4 %; NRBC Per 100 WBC 0 /100 WBCS (0.0-0.0); Neutrophils # (A) 11.49 X 10*3/uL (1.80-7.70); Neutrophils % (A) 72.1 %; Platelet Count 355 X 10*3/uL (140-440); RBC 4.98 X 10*6/uL (4.40-5.60); RDW 15.9 % (11.5-14.5); WBC 15.94 X 10*3/uL (4.50-10.00)
[2021-07-21] MEDS ORDERED: CEPHALEXIN 500 MG CAP PO SCH (13:00)
[2021-07-21 13:32] LABS: African American GFR (CKD) 88.2 (60.0-200.0); Albumin/Globulin Ratio 1.54 (1.60-3.17); Anion Gap 15.2 mmol/L (10.00-18.00); BUN/Creat Ratio 18.81 Ratio (12.00-20.00); Calcium 8.8 mg/dL (8.7-10.3); Globulin 2.6 g/dL (1.6-3.3); Non-African American GFR(CKD) 76.1 (60.0-200.0); Potassium 3.7 mmol/L (3.5-5.5); Total Bilirubin 0.4 mg/dL (0.30-1.20); Total Protein 6.5 g/dL (6.2-8.2)
== END 2021-07-21 12:56 | disposition home or self-care (01) ==
LOC: EC 12:15 → INTOOBSV 14:57 → 4SSUR 14:57 → UNDODISIN 07-21 12:56
PROVIDERS: ADMIT Internal Medicine; ATTEND Internal Medicine
DX: A40.9 Streptococcal sepsis, unspecified (principal); I50.22 Chronic systolic (congestive) heart failure; L03.115 Cellulitis of right lower limb; E11.9 Type 2 diabetes mellitus without complications; E55.9 Vitamin D deficiency, unspecified; E78.5 Hyperlipidemia, unspecified; F17.290 Nicotine dependence, other tobacco product, uncomplicated; G47.33 Obstructive sleep apnea (adult) (pediatric); I11.0 Hypertensive heart disease with heart failure; I25.10 Atherosclerotic heart disease of native coronary artery without angina pectoris; I25.5 Ischemic cardiomyopathy; I48.0 Paroxysmal atrial fibrillation; I87.2 Venous insufficiency (chronic) (peripheral); I87.8 Other specified disorders of veins; J44.9 Chronic obstructive pulmonary disease, unspecified; Z20.822 Contact with and (suspected) exposure to COVID-19; Z79.01 Long term (current) use of anticoagulants; Z79.4 Long term (current) use of insulin; Z79.82 Long term (current) use of aspirin; Z79.84 Long term (current) use of oral hypoglycemic drugs; Z79.899 Other long term (current) drug therapy; Z82.49 Family history of ischemic heart disease and other diseases of the circulatory system; Z98.61 Coronary angioplasty status; M19.90 Unspecified osteoarthritis, unspecified site
CPT/HCPCS: 96361 ×2; 96366 ×6; 96367 ×2; 96365; 99284; 36415; 93005; 80053 ×3; 80048; 85652; 82565; 83605; 85025 ×4; 86140 ×2; 81001; 87040; 87502; 87635; 71046; G0378 ×5; J2543; J3370; J0690 ×5; 96374; 99285

== ENCOUNTER 2021-09-08 06:56 | Inpatient (IN) | payer MEDICARE ==
[2021-09-08] MEDS ORDERED: ACETAMINOPHEN TAB 500 MG TAB PO STA (07:05)
--- NOTE | 2021-09-08 07:43 | ED ---
General Adult HPI - General Chief complaint: Fever Stated complaint: Right Leg Infection Time Seen by Provider: 09/08/21 07:05 Source: patient, family, RN notes reviewed Mode of arrival: ambulatory Limitations: no limitations - History of Present Illness Initial comments: Patient is a pleasant 66-year-old male presenting to the emergency department with concerns for cellulitis of his right lower leg. Onset of symptoms was a few days ago. Patient started with fevers yesterday. Patient does have some discomfort that he states is mild however states he is having significant discomfort with ambulating. Patient has noticed redness and swelling. Patient does have history of similar symptoms a couple times previously. - Related Data Home Medications Medication Instructions Recorded Confirmed metFORMIN HCL [Glucophage] 1,000 mg PO BID 10/18/16 07/17/21 Aspirin EC [Ecotrin Low Dose] 81 mg PO DAILY 02/26/17 07/17/21 Insulin Lispro [humaLOG Kwikpen] See Protocol SQ AC-TID 03/30/20 07/17/21 Amiodarone [Cordarone] 100 mg PO MOWEFR 06/05/20 07/17/21 Ascorbic Acid [Vitamin C] 1,000 mg PO BID 07/17/21 07/17/21 Atorvastatin [Lipitor] 80 mg PO DAILY 07/17/21 07/17/21 Cholecalciferol [Vitamin D3 (25 50 mcg PO BID 07/17/21 07/17/21 Mcg = 1000 Iu)] Empagliflozin [Jardiance] 10 mg PO DAILY 07/17/21 07/17/21 Ezetimibe [Zetia] 10 mg PO DAILY 07/17/21 07/17/21 Ibuprofen [Motrin Ib] 400 mg PO Q8H PRN 07/17/21 07/17/21 Insulin Glargine [Lantus Vial] 60 unit SQ BID 07/17/21 07/17/21 SILVER sulfADIAZINE Cream 1 applic TOPICAL DAILY PRN 07/17/21 07/17/21 [Silvadene 1% Cream] Spironolactone [Aldactone] 25 mg PO DAILY 07/17/21 07/17/21 carvediloL [Coreg] 6.25 mg PO BID 07/17/21 07/17/21 Previous Rx's Medication Instructions Recorded Apixaban [Eliquis] 5 mg PO BID #60 tab 10/24/16 Furosemide [Lasix] 40 mg PO BID@0900,1600 #180 tab 04/05/20 lisinopriL [Zestril] 10 mg PO BID #180 tab 04/05/20 amLODIPine [Norvasc] 5 mg PO DAILY #30 tab 06/30/20 Cephalexin [Keflex] 500 mg PO QID 10 Days #40 cap 07/21/21 Allergies Allergy/AdvReac Type Severity Reaction Status Date / Time No Known Allergies Allergy Verified 09/08/21 07:04 Review of Systems ROS Statement: Those systems with pertinent positive or pertinent negative responses have been documented in the HPI. ROS Other: All systems not noted in ROS Statement are negative. Constitutional: Reports: fever, chills Eyes: Denies: eye pain ENT: Denies: ear pain Respiratory: Denies: cough Cardiovascular: Denies: chest pain Endocrine: Denies: fatigue Gastrointestinal: Denies: abdominal pain Genitourinary: Denies: dysuria Musculoskeletal: Denies: back pain Skin: Reports: as per HPI, rash Neurological: Denies: weakness Past Medical History Past Medical History: Atrial Fibrillation, Heart Failure, COPD, Diabetes Mellitus, Hyperlipidemia, Hypertension, Osteoarthritis (OA), Sleep Apnea/CPAP/BIPAP Additional Past Medical History / Comment(s): CELLULITIS TO RLE, cpap See Dr House H&P for cardiac history. History of Any Multi-Drug Resistant Organisms: None Reported Past Surgical History: Ablation, Appendectomy, Heart Catheterization, Tonsillectomy Additional Past Surgical History / Comment(s): "Heart cath done for ablation" Past Anesthesia/Blood Transfusion Reactions: No Reported Reaction Additional Past Anesthesia/Blood Transfusion Reaction / Comment(s): grumpy after surgery Past Psychological History: No Psychological Hx Reported Smoking Status: Former smoker Past Alcohol Use History: None Reported Past Drug Use History: None Reported - Past Family History Mother Family Medical History: No Reported History Father Family Medical History: Myocardial Infarction (ID) General Exam Limitations: no limitations General appearance: alert, in no apparent distress Head exam: Present: normocephalic Eye exam: Present: normal appearance Neck exam: Present: normal inspection Respiratory exam: Present: normal lung sounds bilaterally Cardiovascular Exam: Present: regular rate, normal rhythm Expanded Peripheral pulses: 2+: Dorsalis Pedis (R) GI/Abdominal exam: Present: soft. Absent: tenderness Extremities exam: Present: other (Right lower leg with swelling and erythema on top of chronic discoloration. There is warmth and mild tenderness.) Neurological exam: Present: alert Psychiatric exam: Present: normal affect, normal mood Skin exam: Present: erythema Course Vital Signs 09/08/21 09/08/21 06:59 07:34 Temperature 100.7 F H 100.6 F H Pulse Rate 84 78 Respiratory 18 14 Rate Blood Pressure 115/63 149/78 O2 Sat by Pulse 95 92 L Oximetry - Reevaluation(s) Reevaluation #1: 09/08/21 08:11 Sepsis criteria met at 8:10 PM. Blood culture and lactic acid and IV a ntibiotics and IV fluids and follow up and ordered. Medical Decision Making - Medical Decision Making Patient reevaluated. Patient and family updated. Case discussed with Dr. Mariano, who will admit his patient and does [facility] Result diagrams: 09/08/21 07:20 09/08/21 07:20 Lab Results 09/08/21 09/08/21 09/08/21 Range/Units 07:20 07:20 07:20 WBC 30.7 H (3.8-10.6) k/uL RBC 4.98 (4.30-5.90) m/uL Hgb 15.3 (13.0-17.5) gm/dL Hct 45.4 (39.0-53.0) % MCV 91.1 (80.0-100.0) fL MCH 30.6 (25.0-35.0) pg MCHC 33.6 (31.0-37.0) g/dL RDW 15.6 H (11.5-15.5) % Plt Count 295 (150-450) k/uL MPV 7.0 PT 12.6 H (9.0-12.0) sec INR 1.2 H (<1.2) APTT 27.4 (22.0-30.0) sec Sodium 139 (137-145) mmol/L Potassium 3.9 (3.5-5.1) mmol/L Chloride 105 (98-107) mmol/L Carbon Dioxide 22 (22-30) mmol/L Anion Gap 12 mmol/L BUN 23 H (9-20) mg/dL Creatinine 1.12 (0.66-1.25) mg/dL Est GFR (CKD-EPI)AfAm 78 (>60 ml/min/1.73 sqM) Est GFR (CKD-EPI)NonAf 67 (>60 ml/min/1.73 sqM) Glucose 149 H (74-99) mg/dL Plasma Lactic Acid Alan (0.7-2.0) mmol/L Calcium 8.9 (8.4-10.2) mg/dL Total Bilirubin 1.1 (0.2-1.3) mg/dL AST 28 (17-59) U/L ALT 21 (4-49) U/L Alkaline Phosphatase 79 (38-126) U/L Total Protein 7.0 (6.3-8.2) g/dL Albumin 4.0 (3.5-5.0) g/dL 09/08/21 Range/Units 07:20 WBC (3.8-10.6) k/uL RBC (4.30-5.90) m/uL Hgb (13.0-17.5) gm/dL Hct (39.0-53.0) % MCV (80.0-100.0) fL MCH (25.0-35.0) pg MCHC (31.0-37.0) g/dL RDW (11.5-15.5) % Plt Count (150-450) k/uL MPV PT (9.0-12.0) sec INR (<1.2) APTT (22.0-30.0) sec Sodium (137-145) mmol/L Potassium (3.5-5.1) mmol/L Chloride (98-107) mmol/L Carbon Dioxide (22-30) mmol/L Anion Gap mmol/L BUN (9-20) mg/dL Creatinine (0.66-1.25) mg/dL Est GFR (CKD-EPI)AfAm (>60 ml/min/1.73 sqM) Est GFR (CKD-EPI)NonAf (>60 ml/min/1.73 sqM) Glucose (74-99) mg/dL Plasma Lactic Acid Alan 2.5 H* (0.7-2.0) mmol/L Calcium (8.4-10.2) mg/dL Total Bilirubin (0.2-1.3) mg/dL AST (17-59) U/L ALT (4-49) U/L Alkaline Phosphatase (38-126) U/L Total Protein (6.3-8.2) g/dL Albumin (3.5-5.0) g/dL - Radiology Data Radiology results: image reviewed (Right tib-fib without acute abnormality. Soft tissue calcifications. Soft tissue swelling.) Critical Care Time Critical Care Time: Yes Total Critical Care Time: 33 Disposition Clinical Impression: Sepsis, Cellulitis of right leg Disposition: ADMITTED IP TO THIS [facility] Condition: Serious Is patient prescribed a controlled substance at d/c from ED?: No Referrals: Alana Mariano MD [Primary Care Provider] - 1-2 days Decision Time: 08:12
[2021-09-08 07:50] LABS: HCT 45.4 % (39.0-53.0); HGB 15.3 gm/dL (13.0-17.5); MCH 30.6 pg (25.0-35.0); MCHC 33.6 g/dL (31.0-37.0); MCV 91.1 fL (80.0-100.0); Platelet Count 295 k/uL (150-450); RBC 4.98 m/uL (4.30-5.90); RDW 15.6 % (11.5-15.5)
[2021-09-08 07:52] LABS: WBC 30.7 k/uL (3.8-10.6)
[2021-09-08 07:57] LABS: INR 1.2 (<1.2); Partial Thromboplastin Time 27.4 sec (22.0-30.0); Prothrombin Time 12.6 sec (9.0-12.0)
[2021-09-08 08:00] LABS: Calcium 8.9 mg/dL (8.4-10.2); Potassium 3.9 mmol/L (3.5-5.1); Total Bilirubin 1.1 mg/dL (0.2-1.3)
[2021-09-08] MEDS ORDERED: SODIUM CHLORIDE 0.9% 1,000 ML IV STA (08:10)
[2021-09-08] MEDS ORDERED: VANCOMYCIN IV PER PHARMACY 1 EACH MISC MISCELLANE PRN (08:10)
[2021-09-08] MEDS ORDERED: ACETAMINOPHEN TAB 325 MG TAB PO PRN (08:16)
[2021-09-08] MEDS ORDERED: VANCOMYCIN 2,000 MG in SODIUM CHLORIDE 0.9% 500 ML 500 ML IVPB STA (08:16)
[2021-09-08] MEDS ORDERED: NALOXONE 0.4 MG/ML 1 ML VIAL IV PRN (08:16)
[2021-09-08 08:24] LABS: Band Neutrophils % 11 %; Lymphocytes # (M) 0.92 k/uL (1.0-4.8); Nucleated Red Blood Cells 0 /100 WBC (0-0)
[2021-09-08 08:25] LABS: Monocytes # (M) 0.31 k/uL (0-1.0); Neutrophils % (M) 85 %; RBC Morphology Normal; Total Cells Counted 101
--- NOTE | 2021-09-08 08:27 | XR ---
EXAMINATION TYPE: XR tibia fibula RT DATE OF EXAM: 09/08/2021 CLINICAL HISTORY: pain TECHNIQUE: AP and lateral images of the right tibia and fibula are obtained. COMPARISON: None. FINDINGS: There is no acute fracture/dislocation evident. The joint spaces appear within normal carreno its. The overlying soft tissue appears unremarkable. IMPRESSION: There is no acute fracture or dislocation seen. ICD 10 NO FRACTURE, INITIAL EVALUATION
--- NOTE | 2021-09-08 08:51 | US ---
EXAMINATION TYPE: US venous doppler duplex LE RT DATE OF EXAM: 09/08/2021 8:41 AM COMPARISON: NONE CLINICAL HISTORY: pain. Known infection, swollen, red, painful, no h/o dvt SIDE PERFORMED: Right TECHNIQUE: The lower extremity deep venous system is examined utilizing real time linear array sonog bella with graded compression, doppler sonography and color-flow sonography. VESSELS IMAGED: Common Femoral Vein Deep Femoral Vein Greater Saphenous Vein * Femoral Vein Popliteal Vein Small Saphenous Vein * Proximal Calf Veins (* superficial vessels) Right Leg: Negative for DVT IMPRESSION: No evidence of DVT
[2021-09-08] MEDS: FAMOTIDINE 20 MG TAB PO SCH ×2 (09:00→20:56)
--- NOTE | 2021-09-08 09:46 | P.HPIM ---
History of Present Illness H&P Date: 09/08/21 Chief Complaint: Right leg cellulitis with sepsis Chief Complaint: Right lower extremity cellulitis HISTORY OF PRESENT ILLNESS: This is a 66-year-old male with a previous medical history significant for hypertension and hypertensive cardiovascular disease, diabetes mellitus type 2 with hyperglycemia, paroxysmal atrial fibrillation, coronary artery disease status post PCI of the LCx back on 04/02/2020, vitamin D deficiency, ischemic cardiopathy, with a chronic systolic heart failure obstructive sleep apnea with obesity hypoventilation syndrome, patient presented to the emergency department with fever at home up to 102 and increased redness and swelling of the right lower extremity his lactic acid came back positive his white count were elevated at 30.000 because of that patient was admitted to the hospital for right lower extremity cellulitis with SIRS he was started on IV antibiotic with Ancef 2 gr IVPB Q 8 hours and ID consult was obtained from .. REVIEW OF SYSTEMS: Constitutional: Positive for fever, no chills, no night sweats. No weight change. Positive for weakness, positive for fatigue no lethargy. No daytime sl eepiness. HEENT: No headache. No blurred vision or double vision, no loss of vision. No loss of Hearing, no ringing in the ears, no dizziness. No nasal drainage or congestion. No epistaxis. No sore throat. Lungs: No shortness of breath, no cough, no sputum production. No wheezing. Reports dyspnea with activity. Cardiovascular: No chest pain, positive for lower extremity edema. No palpitati ons. No paroxysmal nocturnal dyspnea. No orthopnea. No lightheadedness or dizziness. No syncopal episodes. Abdominal: Reports abdominal pain. No nausea, vomiting. No diarrhea. No constipation. No bloody or tarry stools reports loss of appetite. Genitourinary: No dysuria, increased frequency, urgency. No urinary retention. Musculoskeletal: No myalgias. No muscle weakness, no gait dysfunction, no frequent falls. Positive for back pain. No neck pain. Integumentary: right lower extremity wound with cellulitis and increased erythema of the right lower extremity. No change in hair or nails. Neurologic: No aphasia. No facial droop. No change in mentation. No head injury. No headache. No paralysis. No paresthesia. Psychiatric: No depression. No anxiety. No mood swings. Endocrine: abnormal blood sugar, morbidly obese. PAST MEDICAL HISTORY: CAD post-PCI of the LCx Hypertension and hypertensive cardiovascular disease. Hyperlipidemia Diabetes mellitus type 2. Paroxysmal atrial fibrillation. Vitamin D deficiency. Ischemic cardiomyopathy. Chronic systolic heart failure. Obstructive sleep apnea Chronic venous stasis with stasis dermatitis. PAST SURGICAL HISTORY: Left heart catheterization with PCI of the LCx 03/25/2020. Colonoscopy Cardiac ablation for atria fibrillation in 2017. Appendectomy. Tonsillectomy. SOCIAL HISTORY: Patient used to smoke cigar 3 a day since the age of 15 and quit at the age of 59 patient started smoking on 07/06/2004, patient drinks 1-2 cups of coffee, he denies any marijuana use he denies any alcohol use or abuse. FAMILY HISTORY: Father at age of 55 from myocardial infarction mother at the age of 67 from sepsis patient has one sister 69-year-old who is healthy. PHYSICAL EXAMINATION: General: 66-year-old male laying down in bed in no apparent distress. HEENT: Head is atraumatic, normocephalic, pupils were equal round reactive to light and recommendation, extraocular muscle movement were intact, sclera nonicteric, conjunctivae were pale, mucous membranes of the mouth are somewhat dry. Neck: Supple, no JVP, normal carotid upstroke bilaterally, no lymphadenopathy. Chest: Decreased breath sounds at the bases, few rhonchi, no expiratory wheezes, no chest wall tenderness, no intercostal retractions. Heart: First heart sound is normal, second heart sounds normal there is systolic ejection murmur 2/6 located in the left sternal border. Abdomen: Soft, nontender, nondistended, positive bowel sounds, there is no hep atosplenomegaly Extremities: There is +2 edema no calf tenderness DP +2 bilaterally, there is right lower extremity cellulitis w tender spot to the back of the leg likely superficial thrombophlebitis Neurologic examination: Patient is awake alert and oriented X 3, cranial nerves II-12 appear grossly intact, muscle power were 5 out of 5 in upper extremities and 5 out of 5 in bilateral lower extremities, deep tendon reflexes normal bilaterally. ASSESSMENT AND PLAN: 1. Cellulitis with SIRS. Blood cultures were obtained, start the patient on cefazolin 3 g IV piggyback every 8 hours, apply Silvadene cream with wraps on a daily basis and added Vancomycin 2000 mg IVPB Q 12 H by ID . 2. CAD post-PCI of the LCx. Continue patient on aspirin 81 mg once every day, carvedilol 6.25 mg orally twice every day, atorvastatin 80 mg once every day, Zetia 10 mg orally once every day. 3. Hypertension and hypertensive cardio vascular disease. Continue lisinopril 10 mg twice a day, carvedilol 6.25 mg orally twice every day. 4. Hyperlipidemia. Continue patient on atorvastatin 80 mg orally once every day, continue Zetia 10 mg orally once every day. 5. Diabetes mellitus type 2. Continue patient on Lantus 60 units bid, continue sliding scale insulin, continue metformin 1000 mg orally twice every day, continue with Jardiance 10 mg orally daily if available. 6. Paroxysmal atrial fibrillation. Continue patient on Eliquis 5 mg orally twice every day, amiodarone 100 mg orally Thursday and Thursday. 7. Vitamin D deficiency. Continue vitamin D supplement. 8. Chronic systolic heart failure. Hep-Lock IV continue patient on Lasix 40 mg orally twice every day, spironolactone 25 mg orally once every day, continue lisinopril 10 mg orally once every day, continue carvedilol 6.25 mg orally twice every day per he 9. Obstructive sleep apnea. Continue patient on CPAP. 10. Chronic venous stasis with stasis dermatitis and recurrent cellulitis of the right lower extremity. Continue treatment as in paragraph #1. 11. DVT prophylaxis. Continue patient on Eliquis 5 mg orally twice every day. 12. GI prophylaxis. Continue patient on Pepcid 20 mg orally once every day. 13. Admit to inpatient. Estimated length of stay 2 midnights. 14. Full code. Past Medical History Past Medical History: Atrial Fibrillation, Heart Failure, COPD, Diabetes Mellitus, Hyperlipidemia, Hypertension, Osteoarthritis (OA), Sleep Apnea/CPA P/BIPAP Additional Past Medical History / Comment(s): CELLULITIS TO RLE, cpap See Dr House H&P for cardiac history. History of Any Multi-Drug Resistant Organisms: None Reported Past Surgical History: Ablation, Appendectomy, Heart Catheterization, Tonsillectomy Additional Past Surgical History / Comment(s): "Heart cath done for ablation" Past Anesthesia/Blood Transfusion Reactions: No Reported Reaction Additional Past Anesthesia/Blood Transfusion Reaction / Comment(s): grumpy after surgery Past Psychological History: No Psychological Hx Reported Smoking Status: Former smoker Past Alcohol Use History: None Reported Past Drug Use History: None Reported - Past Family History Mother Family Medical History: No Reported History Father Family Medical History: Myocardial Infarction ([place]) Medications and Allergies Home Medications Medication Instructions Recorded Confirmed Type metFORMIN HCL [Glucophage] 1,000 mg PO BID 10/18/16 09/08/21 History Apixaban [Eliquis] 5 mg PO BID #60 tab 10/24/16 09/08/21 Rx Aspirin EC [Ecotrin Low Dose] 81 mg PO DAILY 02/26/17 09/08/21 History Insulin Lispro [humaLOG Kwikpen] See Protocol SQ AC-TID 03/30/20 09/08/21 History Furosemide [Lasix] 40 mg PO BID@0900,1600 #180 tab 04/05/20 09/08/21 Rx lisinopriL [Zestril] 10 mg PO BID #180 tab 04/05/20 09/08/21 Rx Amiodarone [Cordarone] 100 mg PO MOWEFR 06/05/20 09/08/21 History amLODIPine [Norvasc] 5 mg PO DAILY #30 tab 06/30/20 09/08/21 Rx Ascorbic Acid [Vitamin C] 1,000 mg PO BID 07/17/21 09/08/21 History Atorvastatin [Lipitor] 80 mg PO DAILY 07/17/21 09/08/21 History Cholecalciferol [Vitamin D3 (25 50 mcg PO BID 07/17/21 09/08/21 History Mcg = 1000 Iu)] Ezetimibe [Zetia] 10 mg PO DAILY 07/17/21 09/08/21 History Ibuprofen [Motrin Ib] 400 mg PO Q8H PRN 07/17/21 09/08/21 History Insulin Glargine [Lantus Vial] 60 unit SQ BID 07/17/21 09/08/21 History SILVER sulfADIAZINE Cream 1 applic TOPICAL DAILY PRN 07/17/21 09/08/21 History [Silvadene 1% Cream] Spironolactone [Aldactone] 25 mg PO DAILY 07/17/21 09/08/21 History carvediloL [Coreg] 6.25 mg PO BID 07/17/21 09/08/21 History Dulaglutide [Trulicity] 0.75 mg SQ MARCOS 09/08/21 09/08/21 History Empagliflozin [Jardiance] 25 mg PO DAILY 09/08/21 09/08/21 History Allergies Allergy/AdvReac Type Severity Reaction Status Date / Time No Known Allergies Allergy Verified 09/08/21 14:17 Physical Exam Vitals: Vital Signs Temp Pulse Resp BP Pulse Ox 09/08/21 07:34 100.6 F H 78 14 149/78 92 L 09/08/21 06:59 100.7 F H 84 18 115/63 95 Intake and Output 09/07/21 09/08/21 09/08/21 22:59 06:59 14:59 Other: Weight 145.15 kg Results CBC & Chem 7: 09/08/21 07:20 09/08/21 07:20 Labs: Abnormal Lab Results - Last 24 Hours (Table) 09/08/21 09/08/21 09/08/21 Range/Units 07:20 07:20 07:20 WBC 30.7 H (3.8-10.6) k/uL RDW 15.6 H (11.5-15.5) % Neutrophils # (Manual) 29.40 H (1.3-7.7) k/uL Lymphocytes # (Manual) 0.92 L (1.0-4.8) k/uL PT 12.6 H (9.0-12.0) sec INR 1.2 H (<1.2) BUN 23 H (9-20) mg/dL Glucose 149 H (74-99) mg/dL Plasma Lactic Acid Alan (0.7-2.0) mmol/L 09/08/21 Range/Units 07:20 WBC (3.8-10.6) k/uL RDW (11.5-15.5) % Neutrophils # (Manual) (1.3-7.7) k/uL Lymphocytes # (Manual) (1.0-4.8) k/uL PT (9.0-12.0) sec INR (<1.2) BUN (9-20) mg/dL Glucose (74-99) mg/dL Plasma Lactic Acid Alan 2.5 H* (0.7-2.0) mmol/L
[2021-09-08 11:12] LABS: Glucose,Whole Blood 240 mg/dL (75-99)
[2021-09-08] MEDS: INSULIN ASPART (NovoLOG) 100 UNIT/ML VIAL SQ SCH ×2 (11:49→16:43)
[2021-09-08] MEDS: FUROSEMIDE 40 MG TAB PO SCH (15:33)
[2021-09-08 16:31] LABS: Glucose,Whole Blood 198 mg/dL (75-99)
[2021-09-08] MEDS: carvediloL 6.25 MG TAB PO SCH (16:43)
[2021-09-08] MEDS: metFORMIN 500 MG TAB PO SCH (16:43)
[2021-09-08 20:19] LABS: Glucose,Whole Blood 147 mg/dL (75-99)
[2021-09-08] MEDS: INSULIN DETEMIR (LEVEMIR) 100 UNIT/ML SYR SQ SCH (20:55)
[2021-09-08] MEDS: APIXABAN 5 MG TAB PO SCH (20:56)
[2021-09-08] MEDS: ASCORBIC ACID 500 MG TAB PO SCH (20:56)
[2021-09-08] MEDS: CHOLECALCIFEROL 25 MCG (1000 IU) TABLET PO SCH (20:56)
[2021-09-08] MEDS: lisinopriL 10 MG TAB PO SCH (20:56)
[2021-09-08] MEDS ORDERED: VANCOMYCIN 2,000 MG in SODIUM CHLORIDE 0.9% 500 ML 500 ML IVPB SCH (21:00)
[2021-09-08] MEDS: ceFAZolin 3 GM in SODIUM CHLORIDE 0.9% 100 ML IVPB SCH (23:49)
--- NOTE | 2021-09-09 00:07 | P.CONS ---
History of Present Illness - Reason for Consult Consult date: 09/08/21 Right lower extremity cellulitis Requesting physician: Alana Mariano - Chief Complaint Right leg swelling and redness x one day - History of Present Illness Patient is a 66-year male with a past medical history significant for recurrent right lower extremity cellulitis morbid obesity paroxysmal atrial fibrillation coronary artery disease in this patient presenting to the ER last evening for evaluation of increasing redness swelling of the lower extremity and this patient symptom has been going on for a day before presentation to the hospital patient did have diffuse swelling redness right lower extremity patient been complaining of pain to the right leg more of a dull aching at times sharp intensity is 5-6 out of 10 no radiation patient did not have any open wound or any drainage patient was complaining of fever and chills on presentation to the hospital he did have a fever 100.7 F patient did have a elevated lactic acid of 3.4 with white count of 30,000 with a left shift creatinine was normal blood cultures obtained which are currently pending patient was started on vancomycin and cefazolin did received a dose of Rocephin in the ER infectious disease was consulted for further management of antibiotic therapy Review of Systems CONSTITUTIONAL: Positive for weakness. Fever EYES: No complaint. ENT:No complaint. RESPIRATORY: No complaint. CARDIOVASCULAR: No complaint. GENITOURINARY: No complaint. GASTROINTESTINAL: No complaint. MUSCULOSKELETAL: No complaint. INTEGUMENTARY: As per history of present illness PSYCHOLOGICAL: No complaint. ENDOCRINE: No complaint. NEUROLOGIC: No complaint. Past Medical History Past Medical History: Atrial Fibrillation, Heart Failure, COPD, Diabetes Mellitus, Hyperlipidemia, Hypertension, Osteoarthritis (OA), Sleep Apnea/CPAP/B IPAP Additional Past Medical History / Comment(s): CELLULITIS TO RLE, cpap See Dr House H&P for cardiac history. History of Any Multi-Drug Resistant Organisms: None Reported Past Surgical History: Ablation, Appendectomy, Heart Catheterization, Tonsillectomy Additional Past Surgical History / Comment(s): "Heart cath done for ablation" Past Anesthesia/Blood Transfusion Reactions: No Reported Reaction Additional Past Anesthesia/Blood Transfusion Reaction / Comm: grumpy after surgery Past Psychological History: No Psychological Hx Reported Smoking Status: Former smoker Past Alcohol Use History: None Reported Past Drug Use History: None Reported - Past Family History Mother Family Medical History: No Reported History Father Family Medical History: Myocardial Infarction ([place]) Medications and Allergies Home Medications Medication Instructions Recorded Confirmed Type metFORMIN HCL [Glucophage] 1,000 mg PO BID 10/18/16 09/08/21 History Apixaban [Eliquis] 5 mg PO BID #60 tab 10/24/16 09/08/21 Rx Aspirin EC [Ecotrin Low Dose] 81 mg PO DAILY 02/26/17 09/08/21 History Insulin Lispro [humaLOG Kwikpen] See Protocol SQ AC-TID 03/30/20 09/08/21 History Furosemide [Lasix] 40 mg PO BID@0900,1600 #180 tab 04/05/20 09/08/21 Rx lisinopriL [Zestril] 10 mg PO BID #180 tab 04/05/20 09/08/21 Rx Amiodarone [Cordarone] 100 mg PO MOWEFR 06/05/20 09/08/21 History amLODIPine [Norvasc] 5 mg PO DAILY #30 tab 06/30/20 09/08/21 Rx Ascorbic Acid [Vitamin C] 1,000 mg PO BID 07/17/21 09/08/21 History Atorvastatin [Lipitor] 80 mg PO DAILY 07/17/21 09/08/21 History Cholecalciferol [Vitamin D3 (25 50 mcg PO BID 07/17/21 09/08/21 History Mcg = 1000 Iu)] Ezetimibe [Zetia] 10 mg PO DAILY 07/17/21 09/08/21 History Ibuprofen [Motrin Ib] 400 mg PO Q8H PRN 07/17/21 09/08/21 History Insulin Glargine [Lantus Vial] 60 unit SQ BID 07/17/21 09/08/21 History SILVER sulfADIAZINE Cream 1 applic TOPICAL DAILY PRN 07/17/21 09/08/21 History [Silvadene 1% Cream] Spironolactone [Aldactone] 25 mg PO DAILY 07/17/21 09/08/21 History carvediloL [Coreg] 6.25 mg PO BID 07/17/21 09/08/21 History Dulaglutide [Trulicity] 0.75 mg SQ MARCOS 09/08/21 09/08/21 History Empagliflozin [Jardiance] 25 mg PO DAILY 09/08/21 09/08/21 History Allergies Allergy/AdvReac Type Severity Reaction Status Date / Time No Known Allergies Allergy Verified 09/08/21 14:17 Physical Exam Vitals: Vital Signs Temp Pulse Pulse Resp BP BP Pulse Ox 09/08/21 14:00 97.7 F 91 18 144/77 95 09/08/21 09:08 98.8 F 09/08/21 08:41 99.7 F H 83 19 125/67 95 09/08/21 07:34 100.6 F H 78 14 149/78 92 L 09/08/21 06:59 100.7 F H 84 18 115/63 95 Intake and Output 09/08/21 09/08/21 09/08/21 06:59 14:59 22:59 Other: Weight 145.15 kg 145.15 kg GENERAL DESCRIPTION: Middle-aged male lying in bed, no distress. No tachypnea or accessory muscle of respiration use. HEENT: Shows Pallor , no scleral icterus. Oral mucous membrane is dry. No pharyngeal erythema or thrush NECK: Trachea central, no thyromegaly. LUNGS: Unlabored breathing. Clear to auscultation anteriorly. No wheeze or crackle. HEART: S1, S2, regular rate and rhythm. No loud murmur ABDOMEN: Soft, no tenderness , guarding or rigidity, no organomegaly EXTREMITIES: Right lower extremity with diffuse swelling and redness and warmth to touch, no wound and no drainage SKIN: No rash, no masses palpable. NEUROLOGICAL: The patient is awake, alert, oriented x3, mood and affect normal. Results CBC & Chem 7: 09/08/21 07:20 09/08/21 07:20 Labs: Abnormal Lab Results - Last 24 Hours (Table) 09/08/21 09/08/21 09/08/21 Range/Units 07:20 07:20 07:20 WBC 30.7 H (3.8-10.6) k/uL RDW 15.6 H (11.5-15.5) % Neutrophils # (Manual) 29.40 H (1.3-7.7) k/uL Lymphocytes # (Manual) 0.92 L (1.0-4.8) k/uL PT 12.6 H (9.0-12.0) sec INR 1.2 H (<1.2) BUN 23 H (9-20) mg/dL Glucose 149 H (74-99) mg/dL POC Glucose (mg/dL) (75-99) mg/dL Plasma Lactic Acid Alan (0.7-2.0) mmol/L 09/08/21 09/08/21 09/08/21 Range/Units 07:20 11:10 12:00 WBC (3.8-10.6) k/uL RDW (11.5-15.5) % Neutrophils # (Manual) (1.3-7.7) k/uL Lymphocytes # (Manual) (1.0-4.8) k/uL PT (9.0-12.0) sec INR (<1.2) BUN (9-20) mg/dL Glucose (74-99) mg/dL POC Glucose (mg/dL) 240 H (75-99) mg/dL Plasma Lactic Acid Alan 2.5 H* 2.1 H* (0.7-2.0) mmol/L Assessment and Plan (1) Cellulitis of right leg Current Visit: Yes Status: Acute Code(s): L03.115 - CELLULITIS OF RIGHT LOWER LIMB SNOMED Code(s): 183232830 (2) Sepsis Current Visit: Yes Status: Acute Code(s): A41.9 - SEPSIS, UNSPECIFIED ORGAN ISM SNOMED Code(s): 06635539 Plan: 1patient presented to hospital with sepsis in this patient did have a diffuse swelling redness of the right lower extremity likely the source of this sepsis and likely streptococcal cellulitis clinically not behaving as MRSA or gram- negative infection 2-in view of his weight will increase the dose of cefazolin to 3 g every 8 hour and discontinue vancomycin 3-Marked area of the redness and [place] wrap from just above the toe to below the knee We will follow on clinical condition and cultures to further adjust medication if needed Thank you for this consultation will follow this patient along with you Time with Patient: Greater than 30
[2021-09-09 06:59] LABS: Glucose,Whole Blood 116 mg/dL (75-99)
[2021-09-09] MEDS: INSULIN ASPART (NovoLOG) 100 UNIT/ML VIAL SQ SCH ×3 (08:38→17:03)
[2021-09-09] MEDS: ASCORBIC ACID 500 MG TAB PO SCH ×2 (08:48→20:46)
[2021-09-09] MEDS: FAMOTIDINE 20 MG TAB PO SCH ×2 (08:48→20:46)
[2021-09-09] MEDS: APIXABAN 5 MG TAB PO SCH ×2 (08:48→20:46)
[2021-09-09] MEDS: ATORVASTATIN 80 MG TAB PO SCH (08:48)
[2021-09-09] MEDS: CHOLECALCIFEROL 25 MCG (1000 IU) TABLET PO SCH ×2 (08:48→20:46)
[2021-09-09] MEDS: EZETIMIBE 10 MG TAB PO SCH (08:48)
[2021-09-09] MEDS: ASPIRIN 81 MG PO SCH (08:48)
[2021-09-09] MEDS: lisinopriL 10 MG TAB PO SCH ×2 (08:48→20:46)
[2021-09-09] MEDS: AMIODARONE 100 MG TAB PO SCH (08:48)
[2021-09-09] MEDS: metFORMIN 500 MG TAB PO SCH ×2 (08:48→17:03)
[2021-09-09] MEDS: carvediloL 6.25 MG TAB PO SCH ×2 (08:48→17:03)
[2021-09-09] MEDS: FUROSEMIDE 40 MG TAB PO SCH ×2 (08:48→16:07)
[2021-09-09] MEDS: amLODIPine 5 MG TAB PO SCH (08:48)
[2021-09-09] MEDS: ceFAZolin 3 GM in SODIUM CHLORIDE 0.9% 100 ML IVPB SCH ×3 (08:49→23:24)
[2021-09-09] MEDS: INSULIN DETEMIR (LEVEMIR) 100 UNIT/ML SYR SQ SCH ×2 (08:49→20:46)
[2021-09-09 08:56] LABS: Basophils # (A) 0.07 X 10*3/uL (0.00-0.10); Basophils % (A) 0.3 %; Eosinophils # (A) 0 X 10*3/uL (0.04-0.35); Eosinophils % (A) 0 %; HCT 44.7 % (39.6-50.0); HGB 13.8 g/dL (13.0-17.0); Immature Grans, Automated 0.7 %; Lymphocytes # (A) 1.94 X 10*3/uL (0.90-5.00); Lymphocytes % (A) 8.8 %; MCH 28.8 pg (27.0-32.0); MCHC 30.9 g/dL (32.0-37.0); MCV 93.3 fL (80.0-97.0); Mean Platelet Volume 9.6 fL (9.5-12.2); Monocytes # (A) 1.43 X 10*3/uL (0.20-1.00); Monocytes % (A) 6.5 %; NRBC Per 100 WBC 0 /100 WBCS (0.0-0.0); Neutrophils # (A) 18.53 X 10*3/uL (1.80-7.70); Neutrophils % (A) 83.7 %; Platelet Count 186 X 10*3/uL (140-440); RBC 4.79 X 10*6/uL (4.40-5.60); RDW 16.2 % (11.5-14.5); WBC 22.13 X 10*3/uL (4.50-10.00)
[2021-09-09] MEDS: SPIRONOLACTONE 25 MG TAB PO SCH (08:59)
[2021-09-09 09:24] LABS: African American GFR (CKD) 71.6 (60.0-200.0); Anion Gap 15.3 mmol/L (10.00-18.00); BUN/Creat Ratio 17.5 Ratio (12.00-20.00); Carbon Dioxide 20.7 mmol/L (20.0-27.5); Non-African American GFR(CKD) 61.8 (60.0-200.0); Potassium 3.4 mmol/L (3.5-5.5)
[2021-09-09] MEDS: Empagliflozin [Jardiance] PO SCH (10:39)
--- NOTE | 2021-09-09 10:51 | P.PN ---
Subjective Progress Note Date: 09/09/21 HISTORY OF PRESENT ILLNESS: This is a 66-year-old male with a previous medical history significant for hy pertension and hypertensive cardiovascular disease, diabetes mellitus type 2 with hyperglycemia, paroxysmal atrial fibrillation, coronary artery disease status post PCI of the LCx back on 04/02/2020, vitamin D deficiency, ischemic cardiopathy, with a chronic systolic heart failure obstructive sleep apnea with obesity hypoventilation syndrome, patient presented to the emergency department with fever at home up to 102 and increased redness and swelling of the right lower extremity his lactic acid came back positive his white count were elevated at 30.000 because of that patient was admitted to the hospital for right lower extremity cellulitis with SIRS he was started on IV antibiotic with Ancef 2 gr IVPB Q 8 hours and ID consult was obtained from .. 09/09: Patient is sitting up in a chair in no apparent distress at this time, he denies any chest pain, or any shortness breath, he continues to feel generally weak, he has his both lower extremities wrapped up with Silvadene cream, c ontinue vancomycin, continue Ancef, infectious diseases is following, keep the leg elevated. REVIEW OF SYSTEMS: Constitutional: Positive for fever, no chills, no night sweats. No weight change. Positive for weakness, positive for fatigue no lethargy. No daytime sleepiness. HEENT: No headache. No blurred vision or double vision, no loss of vision. No loss of Hearing, no ringing in the ears, no dizziness. No nasal drainage or congestion. No epistaxis. No sore throat. Lungs: No shortness of breath, no cough, no sputum production. No wheezing. Reports dyspnea with activity. Cardiovascular: No chest pain, positive for lower extremity edema. No palpitations. No paroxysmal nocturnal dyspnea. No orthopnea. No lightheadedness or dizziness. No syncopal episodes. Abdominal: Reports abdominal pain. No nausea, vomiting. No diarrhea. No constipation. No bloody or tarry stools reports loss of appetite. Genitourinary: No dysuria, increased frequency, urgency. No urinary retention. Musculoskeletal: No myalgias. No muscle weakness, no gait dysfunction, no frequent falls. Positive for back pain. No neck pain. Integumentary: right lower extremity wound with cellulitis and increased erythema of the right lower extremity. No change in hair or nails. Neurologic: No aphasia. No facial droop. No change in mentation. No head injury. No headache. No paralysis. No paresthesia. Psychiatric: No depression. No anxiety. No mood swings. Endocrine: abnormal blood sugar, morbidly obese. PHYSICAL EXAMINATION: General: 66-year-old male laying down in bed in no apparent distress. HEENT: Head is atraumatic, normocephalic, pupils were equal round reactive to light and recommendation, extraocular muscle movement were intact, sclera nonicteric, conjunctivae were pale, mucous membranes of the mouth are somewhat dry. Neck: Supple, no JVP, normal carotid upstroke bilaterally, no lymphadenopathy. Chest: Decreased breath sounds at the bases, few rhonchi, no expiratory wheezes, no chest wall tenderness, no intercostal retractions. Heart: First heart sound is normal, second heart sounds normal there is systolic ejection murmur 2/6 located in the left sternal border. Abdomen: Soft, nontender, nondistended, positive bowel sounds, there is no hepatosplenomegaly Extremities: There is +2 edema no calf tenderness DP +2 bilaterally, there is right lower extremity cellulitis w tender spot to the back of the leg likely superficial thrombophlebitis Neurologic examination: Patient is awake alert and oriented X 3, cranial nerves II-12 appear grossly intact, muscle power were 5 out of 5 in upper extremities and 5 out of 5 in bilateral lower extremities, deep tendon reflexes normal bilaterally. ASSESSMENT AND PLAN: 1. Cellulitis with SIRS. Blood cultures were obtained, start the patient on cefazolin 3 g IV piggyback every 8 hours, apply Silvadene cream with wraps on a daily basis and Vancomycin 2000 mg IVPB Q 12 H by . 2. CAD post-PCI of the LCx. Continue patient on aspirin 81 mg once every day, carvedilol 6.25 mg orally twice every day, atorvastatin 80 mg once every day, Zetia 10 mg orally once every day. 3. Hypertension and hypertensive cardio vascular disease. Continue lisinopril 10 mg twice a day, carvedilol 6.25 mg orally twice every day. 4. Hyperlipidemia. Continue patient on atorvastatin 80 mg orally once every day, continue Zetia 10 mg orally once every day. 5. Diabetes mellitus type 2. Continue patient on Lantus 60 units bid, continue sliding scale insulin, continue metformin 1000 mg orally twice every day, continue with Jardiance 10 mg orally daily if available. 6. Paroxysmal atrial fibrillation. Continue patient on Eliquis 5 mg orally twice every day, amiodarone 100 mg orally Thursday and Thursday. 7. Vitamin D deficiency. Continue vitamin D supplement. 8. Chronic systolic heart failure. Hep-Lock IV continue patient on Lasix 40 mg orally twice every day, spironolactone 25 mg orally once every day, continue lis inopril 10 mg orally once every day, continue carvedilol 6.25 mg orally twice every day per he 9. Obstructive sleep apnea. Continue patient on CPAP. 10. Chronic venous stasis with stasis dermatitis and recurrent cellulitis of the right lower extremity. Continue treatment as in paragraph #1. 11. DVT prophylaxis. Continue patient on Eliquis 5 mg orally twice every day. 12. GI prophylaxis. Continue patient on Pepcid 20 mg orally once every day. 13. Increase activity. Objective - Vital Signs Vital signs: Vital Signs Temp 97.6 F 09/09/21 07:41 Pulse 79 09/09/21 07:41 Resp 16 09/09/21 07:41 BP 144/76 09/09/21 07:41 Pulse Ox 95 09/09/21 07:41 Intake & Output 09/08/21 09/09/21 09/09/21 18:59 06:59 18:59 Intake Total 100 222 596 Output Total 200 Balance 100 22 596 Weight 145.15 kg Intake: Intake, IV Titration 100 Amount ceFAZolin 3 gm In Sodium 100 Chloride 0.9% 100 ml @ 200 mls/hr IVPB Q8HR [facility] Rx#:[id number] Oral 222 596 Output: Urine 200 Other: Voiding Method Urinal - Labs CBC & Chem 7: 09/09/21 05:30 09/09/21 05:30 Labs: Abnormal Lab Results - Last 24 Hours (Table) 09/08/21 09/08/21 09/08/21 Range/Units 11:10 12:00 15:49 WBC (4.50-10.00) X 10*3/uL MCHC (32.0-37.0) g/dL RDW (11.5-14.5) % Immature Gran # (0.00-0.04) X 10*3/uL Neutrophils # (1.80-7.70) X 10*3/uL Monocytes # (0.20-1.00) X 10*3/uL Eosinophils # (0.04-0.35) X 10*3/uL Potassium (3.5-5.5) mmol/L Glucose (70-110) mg/dL POC Glucose (mg/dL) 240 H (75-99) mg/dL Plasma Lactic Acid Alan 2.1 H* 3.4 H* (0.7-2.0) mmol/L Calcium (8.7-10.3) mg/dL 09/08/21 09/08/21 09/09/21 Range/Units 16:30 20:17 05:30 WBC 22.13 H (4.50-10.00) X 10*3/uL MCHC 30.9 L (32.0-37.0) g/dL RDW 16.2 H (11.5-14.5) % Immature Gran # 0.16 H (0.00-0.04) X 10*3/uL Neutrophils # 18.53 H (1.80-7.70) X 10*3/uL Monocytes # 1.43 H (0.20-1.00) X 10*3/uL Eosinophils # 0 L (0.04-0.35) X 10*3/uL Potassium (3.5-5.5) mmol/L Glucose (70-110) mg/dL POC Glucose (mg/dL) 198 H 147 H (75-99) mg/dL Plasma Lactic Acid Alan (0.7-2.0) mmol/L Calcium (8.7-10.3) mg/dL 09/09/21 09/09/21 Range/Units 05:30 06:57 WBC (4.50-10.00) X 10*3/uL MCHC (32.0-37.0) g/dL RDW (11.5-14.5) % Immature Gran # (0.00-0.04) X 10*3/uL Neutrophils # (1.80-7.70) X 10*3/uL Monocytes # (0.20-1.00) X 10*3/uL Eosinophils # (0.04-0.35) X 10*3/uL Potassium 3.4 L (3.5-5.5) mmol/L Glucose 121 H (70-110) mg/dL POC Glucose (mg/dL) 116 H (75-99) mg/dL Plasma Lactic Acid Alan (0.7-2.0) mmol/L Calcium 8.0 L (8.7-10.3) mg/dL Microbiology - Last 24 Hours (Table) 09/08/21 07:45 Blood Culture - Preliminary Blood No Growth after 24 hours 09/08/21 07:20 Blood Culture - Preliminary Blood No Growth after 24 hours
[2021-09-09 11:40] LABS: Glucose,Whole Blood 153 mg/dL (75-99)
[2021-09-09 16:33] LABS: Glucose,Whole Blood 145 mg/dL (75-99)
[2021-09-09 20:39] LABS: Glucose,Whole Blood 187 mg/dL (75-99)
--- NOTE | 2021-09-10 00:05 | P.PN ---
Subjective Progress Note Date: 09/09/21 Principal diagnosis: Right lower extremity cellulitis Patient is a 66 year male with a past medical history significant for morbid obesity history of chronic lower extremity swelling and recurrent cellulitis to the right lower extremity in this patient admitted to the hospital with another episode of right lower extremity cellulitis. On today's evaluation that is 09/09/2021, the patient is afebrile, the patient is feeling slightly better, he denies having any chest pain shortness of breath or cough no abdominal pain overall pain and discomfort in the right lower e xtremity slightly decreased Objective - Vital Signs Vital signs: Vital Signs Temp 97.7 F 09/09/21 14:00 Pulse 68 09/09/21 14:00 Resp 16 09/09/21 14:00 BP 115/65 09/09/21 14:00 Pulse Ox 95 09/09/21 14:00 Intake & Output 09/08/21 09/09/21 09/09/21 18:59 06:59 18:59 Intake Total 100 222 596 Output Total 200 Balance 100 22 596 Weight 145.15 kg Intake: Intake, IV Titration 100 Amount ceFAZolin 3 gm In Sodium 100 Chloride 0.9% 100 ml @ 200 mls/hr IVPB Q8HR [facility] [place] Rx#:[id number] Oral 222 596 Output: Urine 200 Other: Voiding Method Urinal - Exam GENERAL DESCRIPTION: An elderly male lying in bed in no distress RESPIRATORY SYSTEM: Unlabored breathing , decreased breath sounds at bases HEART: S1 S2 regular rate and rhythm , ABDOMEN: Soft , no tenderness EXTREMITIES: Right lower extremity swelling and redness is slightly decreased - Labs CBC & Chem 7: 09/09/21 05:30 09/09/21 05:30 Labs: Abnormal Lab Results - Last 24 Hours (Table) 09/08/21 09/08/21 09/08/21 Range/Units 15:49 16:30 20:17 WBC (4.50-10.00) X 10*3/uL MCHC (32.0-37.0) g/dL RDW (11.5-14.5) % Immature Gran # (0.00-0.04) X 10*3/uL Neutrophils # (1.80-7.70) X 10*3/uL Monocytes # (0.20-1.00) X 10*3/uL Eosinophils # (0.04-0.35) X 10*3/uL Potassium (3.5-5.5) mmol/L Glucose (70-110) mg/dL POC Glucose (mg/dL) 198 H 147 H (75-99) mg/dL Plasma Lactic Acid Alan 3.4 H* (0.7-2.0) mmol/L Calcium (8.7-10.3) mg/dL 09/09/21 09/09/21 09/09/21 Range/Units 05:30 05:30 06:57 WBC 22.13 H (4.50-10.00) X 10*3/uL MCHC 30.9 L (32.0-37.0) g/dL RDW 16.2 H (11.5-14.5) % Immature Gran # 0.16 H (0.00-0.04) X 10*3/uL Neutrophils # 18.53 H (1.80-7.70) X 10*3/uL Monocytes # 1.43 H (0.20-1.00) X 10*3/uL Eosinophils # 0 L (0.04-0.35) X 10*3/uL Potassium 3.4 L (3.5-5.5) mmol/L Glucose 121 H (70-110) mg/dL POC Glucose (mg/dL) 116 H (75-99) mg/dL Plasma Lactic Acid Alan (0.7-2.0) mmol/L Calcium 8.0 L (8.7-10.3) mg/dL 09/09/21 Range/Units 11:39 WBC (4.50-10.00) X 10*3/uL MCHC (32.0-37.0) g/dL RDW (11.5-14.5) % Immature Gran # (0.00-0.04) X 10*3/uL Neutrophils # (1.80-7.70) X 10*3/uL Monocytes # (0.20-1.00) X 10*3/uL Eosinophils # (0.04-0.35) X 10*3/uL Potassium (3.5-5.5) mmol/L Glucose (70-110) mg/dL POC Glucose (mg/dL) 153 H (75-99) mg/dL Plasma Lactic Acid Alan (0.7-2.0) mmol/L Calcium (8.7-10.3) mg/dL Microbiology - Last 24 Hours (Table) 09/08/21 07:45 Blood Culture - Preliminary Blood No Growth after 24 hours 09/08/21 07:20 Blood Culture - Preliminary Blood No Growth after 24 hours Assessment and Plan (1) Cellulitis of right leg Current Visit: Yes Status: Acute Code(s): L03.115 - CELLULITIS OF RIGHT LOWER LIMB SNOMED Code(s): 463933179 (2) Sepsis Current Visit: Yes Status: Acute Code(s): A41.9 - SEPSIS, UNSPECIFIED ORGANISM SNOMED Code(s): 07686574 Plan: 1patient presented to hospital with sepsis in this patient did have a diffuse swelling redness of the right lower extremity likely the source of this sepsis and likely streptococcal cellulitis clinically not behaving as MRSA or gram- negative infection 2-Patient to continue with cefazolin to 3 g every 8 hour 3- [place] wrap from just above the toe to below the knee Time with Patient: Less than 30
[2021-09-10 06:58] LABS: Glucose,Whole Blood 89 mg/dL (75-99)
[2021-09-10] MEDS: INSULIN DETEMIR (LEVEMIR) 100 UNIT/ML SYR SQ SCH ×2 (08:03→20:58)
[2021-09-10] MEDS: carvediloL 6.25 MG TAB PO SCH ×2 (08:16→17:12)
[2021-09-10] MEDS: SPIRONOLACTONE 25 MG TAB PO SCH (08:17)
[2021-09-10] MEDS: ASCORBIC ACID 500 MG TAB PO SCH ×2 (08:17→20:58)
[2021-09-10] MEDS: lisinopriL 10 MG TAB PO SCH ×2 (08:17→20:58)
[2021-09-10] MEDS: ASPIRIN 81 MG PO SCH (08:17)
[2021-09-10] MEDS: FAMOTIDINE 20 MG TAB PO SCH ×2 (08:17→20:58)
[2021-09-10] MEDS: metFORMIN 500 MG TAB PO SCH ×2 (08:17→17:12)
[2021-09-10] MEDS: CHOLECALCIFEROL 25 MCG (1000 IU) TABLET PO SCH ×2 (08:17→20:59)
[2021-09-10] MEDS: ATORVASTATIN 80 MG TAB PO SCH (08:17)
[2021-09-10] MEDS: amLODIPine 5 MG TAB PO SCH (08:17)
[2021-09-10] MEDS: FUROSEMIDE 40 MG TAB PO SCH ×2 (08:17→16:09)
[2021-09-10] MEDS: EZETIMIBE 10 MG TAB PO SCH (08:17)
[2021-09-10] MEDS: APIXABAN 5 MG TAB PO SCH ×2 (08:20→20:58)
[2021-09-10] MEDS: ceFAZolin 3 GM in SODIUM CHLORIDE 0.9% 100 ML IVPB SCH ×2 (08:20→16:09)
[2021-09-10 09:14] LABS: Basophils # (A) 0.04 X 10*3/uL (0.00-0.10); Basophils % (A) 0.3 %; Eosinophils # (A) 0.26 X 10*3/uL (0.04-0.35); Eosinophils % (A) 1.8 %; HCT 40.3 % (39.6-50.0); HGB 12.9 g/dL (13.0-17.0); Immature Grans, Automated 0.3 %; Lymphocytes # (A) 1.87 X 10*3/uL (0.90-5.00); Lymphocytes % (A) 12.8 %; MCH 29.1 pg (27.0-32.0); MCV 90.8 fL (80.0-97.0); Mean Platelet Volume 9.8 fL (9.5-12.2); Monocytes # (A) 1.04 X 10*3/uL (0.20-1.00); Monocytes % (A) 7.1 %; NRBC Per 100 WBC 0 /100 WBCS (0.0-0.0); Neutrophils # (A) 11.32 X 10*3/uL (1.80-7.70); Neutrophils % (A) 77.7 %; Platelet Count 209 X 10*3/uL (140-440); RBC 4.44 X 10*6/uL (4.40-5.60); RDW 15.9 % (11.5-14.5); WBC 14.58 X 10*3/uL (4.50-10.00)
[2021-09-10 09:39] LABS: African American GFR (CKD) 79.5 (60.0-200.0); Albumin 3.5 g/dL (3.8-4.9); Albumin/Globulin Ratio 1.59 (1.60-3.17); Anion Gap 13.4 mmol/L (10.00-18.00); BUN/Creat Ratio 17.73 Ratio (12.00-20.00); Blood Urea Nitrogen 19.5 mg/dL (9.0-27.0); Calcium 7.8 mg/dL (8.7-10.3); Carbon Dioxide 24.6 mmol/L (20.0-27.5); Globulin 2.2 g/dL (1.6-3.3); Non-African American GFR(CKD) 68.6 (60.0-200.0); Potassium 3.7 mmol/L (3.5-5.5); Total Bilirubin 0.3 mg/dL (0.30-1.20); Total Protein 5.7 g/dL (6.2-8.2)
[2021-09-10] MEDS: INSULIN ASPART (NovoLOG) 100 UNIT/ML VIAL SQ SCH ×3 (10:26→17:12)
[2021-09-10] MEDS: Empagliflozin [Jardiance] PO SCH (10:26)
[2021-09-10 11:16] LABS: Glucose,Whole Blood 124 mg/dL (75-99)
[2021-09-10 16:32] LABS: Glucose,Whole Blood 163 mg/dL (75-99)
--- NOTE | 2021-09-10 18:35 | P.PN ---
Subjective Progress Note Date: 09/10/21 HISTORY OF PRESENT ILLNESS: This is a 66-year-old male with a previous medical history significant for hy pertension and hypertensive cardiovascular disease, diabetes mellitus type 2 with hyperglycemia, paroxysmal atrial fibrillation, coronary artery disease status post PCI of the LCx back on 04/02/2020, vitamin D deficiency, ischemic cardiopathy, with a chronic systolic heart failure obstructive sleep apnea with obesity hypoventilation syndrome, patient presented to the emergency department with fever at home up to 102 and increased redness and swelling of the right lower extremity his lactic acid came back positive his white count were elevated at 30.000 because of that patient was admitted to the hospital for right lower extremity cellulitis with SIRS he was started on IV antibiotic with Ancef 2 gr IVPB Q 8 hours and ID consult was obtained from .. 09/09: Patient is sitting up in a chair in no apparent distress at this time, he denies any chest pain, or any shortness breath, he continues to feel generally weak, he has his both lower extremities wrapped up with Silvadene cream, c ontinue vancomycin, continue Ancef, infectious diseases is following, keep the leg elevated. 09/10: Patient is sitting up in a chair his feeling better today, he is wearing ALF hose, he denies any fever or chills, he has no abdominal pain, he has soft stools without diarrhea, no hematemesis or hematochezia and no black tarry stool, he has no abdominal pain at this point in time, he is tolerating t reatment very well. REVIEW OF SYSTEMS: Constitutional: Positive for fever, no chills, no night sweats. No weight change. Positive for weakness, positive for fatigue no lethargy. No daytime sleepiness. HEENT: No headache. No blurred vision or double vision, no loss of vision. No loss of Hearing, no ringing in the ears, no dizziness. No nasal drainage or congestion. No epistaxis. No sore throat. Lungs: No shortness of breath, no cough, no sputum production. No wheezing. Reports dyspnea with activity. Cardiovascular: No chest pain, positive for lower extremity edema. No palpitations. No paroxysmal nocturnal dyspnea. No orthopnea. No lightheadedness or dizziness. No syncopal episodes. Abdominal: Reports abdominal pain. No nausea, vomiting. No diarrhea. No constipation. No bloody or tarry stools reports loss of appetite. Genitourinary: No dysuria, increased frequency, urgency. No urinary retention. Musculoskeletal: No myalgias. No muscle weakness, no gait dysfunction, no frequent falls. Positive for back pain. No neck pain. Integumentary: right lower extremity wound with cellulitis and increased erythema of the right lower extremity. No change in hair or nails. Neurologic: No aphasia. No facial droop. No change in mentation. No head injury. No headache. No paralysis. No paresthesia. Psychiatric: No depression. No anxiety. No mood swings. Endocrine: abnormal blood sugar, morbidly obese. PHYSICAL EXAMINATION: General: 66-year-old male laying down in bed in no apparent distress. HEENT: Head is atraumatic, normocephalic, pupils were equal round reactive to light and recommendation, extraocular muscle movement were intact, sclera nonicteric, conjunctivae were pale, mucous membranes of the mouth are somewhat dry. Neck: Supple, no JVP, normal carotid upstroke bilaterally, no lymphadenopathy. Chest: Decreased breath sounds at the bases, few rhonchi, no expiratory wheezes, no chest wall tenderness, no intercostal retractions. Heart: First heart sound is normal, second heart sounds normal there is systolic ejection murmur 2/6 located in the left sternal border. Abdomen: Soft, nontender, nondistended, positive bowel sounds, there is no hepatosplenomegaly Extremities: There is +2 edema no calf tenderness DP +2 bilaterally, there is right lower extremity cellulitis w tender spot to the back of the leg likely superficial thrombophlebitis Neurologic examination: Patient is awake alert and oriented X 3, cranial nerves II-12 appear grossly intact, muscle power were 5 out of 5 in upper extremities and 5 out of 5 in bilateral lower extremities, deep tendon reflexes normal bilaterally. ASSESSMENT AND PLAN: 1. Cellulitis with SIRS. Blood cultures were obtained, start the patient on cefazolin 3 g IV piggyback every 8 hours, apply Silvadene cream with wraps on a daily basis and Vancomycin 2000 mg IVPB Q 12 H by . 2. CAD post-PCI of the LCx. Continue patient on aspirin 81 mg once every day, carvedilol 6.25 mg orally twice every day, atorvastatin 80 mg once every day, Zetia 10 mg orally once every day. 3. Hypertension and hypertensive cardio vascular disease. Continue lisinopril 10 mg twice a day, carvedilol 6.25 mg orally twice every day. 4. Hyperlipidemia. Continue patient on atorvastatin 80 mg orally once every day, continue Zetia 10 mg orally once every day. 5. Diabetes mellitus type 2. Continue patient on Lantus 60 units bid, continue sliding scale insulin, continue metformin 1000 mg orally twice every day, c ontinue with Jardiance 10 mg orally daily if available. 6. Paroxysmal atrial fibrillation. Continue patient on Eliquis 5 mg orally twice every day, amiodarone 100 mg orally Thursday and Thursday. 7. Vitamin D deficiency. Continue vitamin D supplement. 8. Chronic systolic heart failure. Hep-Lock IV continue patient on Lasix 40 mg orally twice every day, spironolactone 25 mg orally once every day, continue lisinopril 10 mg orally once every day, continue carvedilol 6.25 mg orally twice every day per he 9. Obstructive sleep apnea. Continue patient on CPAP. 10. Chronic venous stasis with stasis dermatitis and recurrent cellulitis of the right lower extremity. Continue treatment as in paragraph #1. 11. DVT prophylaxis. Continue patient on Eliquis 5 mg orally twice every day. 12. GI prophylaxis. Continue patient on Pepcid 20 mg orally once every day. 13. Increase activity. Objective - Vital Signs Vital signs: Vital Signs Temp 98.6 F 09/10/21 08:00 Pulse 74 09/10/21 08:00 Resp 18 09/10/21 08:00 BP 118/77 09/10/21 08:00 Pulse Ox 95 09/10/21 08:00 Intake & Output 09/09/21 09/10/21 09/10/21 18:59 06:59 18:59 Intake Total 596 Output Total 1525 Balance 596 -1525 Intake: Oral 596 Output: Urine 1525 Other: Voiding Method Urinal # Voids 3 4 # Bowel Movements 1 - Labs CBC & Chem 7: 09/10/21 06:07 09/10/21 06:07 Labs: Abnormal Lab Results - Last 24 Hours (Table) 09/09/21 09/09/21 09/10/21 Range/Units 16:31 20:37 06:07 WBC 14.58 H (4.50-10.00) X 10*3/uL Hgb 12.9 L (13.0-17.0) g/dL RDW 15.9 H (11.5-14.5) % Immature Gran # 0.05 H (0.00-0.04) X 10*3/uL Neutrophils # 11.32 H (1.80-7.70) X 10*3/uL Monocytes # 1.04 H (0.20-1.00) X 10*3/uL POC Glucose (mg/dL) 145 H 187 H (75-99) mg/dL Calcium (8.7-10.3) mg/dL AST (14-35) U/L Total Protein (6.2-8.2) g/dL Albumin (3.8-4.9) g/dL Albumin/Globulin Ratio (1.60-3.17) g/dL 09/10/21 09/10/21 Range/Units 06:07 11:15 WBC (4.50-10.00) X 10*3/uL Hgb (13.0-17.0) g/dL RDW (11.5-14.5) % Immature Gran # (0.00-0.04) X 10*3/uL Neutrophils # (1.80-7.70) X 10*3/uL Monocytes # (0.20-1.00) X 10*3/uL POC Glucose (mg/dL) 124 H (75-99) mg/dL Calcium 7.8 L (8.7-10.3) mg/dL AST 12 L (14-35) U/L Total Protein 5.7 L (6.2-8.2) g/dL Albumin 3.5 L (3.8-4.9) g/dL Albumin/Globulin Ratio 1.59 L (1.60-3.17) g/dL Microbiology - Last 24 Hours (Table) 09/08/21 07:45 Blood Culture - Preliminary Blood No Growth after 48 hours 09/08/21 07:20 Blood Culture - Preliminary Blood No Growth after 48 hours
[2021-09-10 20:41] LABS: Glucose,Whole Blood 147 mg/dL (75-99)
--- NOTE | 2021-09-10 22:04 | P.PN ---
Subjective Progress Note Date: 09/10/21 Principal diagnosis: Right lower extremity cellulitis Patient is a 66 year male with a past medical history significant for morbid obesity history of chronic lower extremity swelling and recurrent cellulitis to the right lower extremity in this patient admitted to the hospital with another episode of right lower extremity cellulitis. On today's evaluation that is 09/10/2021, the patient remains to be afebrile, the patient denies having any chest pain shortness of breath or cough no abdominal pain, the patient pain and discomfort in the right lower extremity slightly decreased in intensity Objective - Vital Signs Vital signs: Vital Signs Temp 98.6 F 09/10/21 08:00 Pulse 74 09/10/21 08:00 Resp 18 09/10/21 08:00 BP 118/77 09/10/21 08:00 Pulse Ox 95 09/10/21 08:00 Intake & Output 09/09/21 09/10/21 09/10/21 18:59 06:59 18:59 Intake Total 596 Output Total 1525 Balance 596 -1525 Intake: Oral 596 Output: Urine 1525 Other: Voiding Method Urinal # Voids 3 4 # Bowel Movements 1 - Exam GENERAL DESCRIPTION: An elderly male lying in bed in no distress RESPIRATORY SYSTEM: Unlabored breathing , decreased breath sounds at bases HEART: S1 S2 regular rate and rhythm , ABDOMEN: Soft , no tenderness EXTREMITIES: Right lower extremity swelling and redness is decreased in intensit y - Labs CBC & Chem 7: 09/10/21 06:07 09/10/21 06:07 Labs: Abnormal Lab Results - Last 24 Hours (Table) 09/09/21 09/09/21 09/10/21 Range/Units 16:31 20:37 06:07 WBC 14.58 H (4.50-10.00) X 10*3/uL Hgb 12.9 L (13.0-17.0) g/dL RDW 15.9 H (11.5-14.5) % Immature Gran # 0.05 H (0.00-0.04) X 10*3/uL Neutrophils # 11.32 H (1.80-7.70) X 10*3/uL Monocytes # 1.04 H (0.20-1.00) X 10*3/uL POC Glucose (mg/dL) 145 H 187 H (75-99) mg/dL Calcium (8.7-10.3) mg/dL AST (14-35) U/L Total Protein (6.2-8.2) g/dL Albumin (3.8-4.9) g/dL Albumin/Globulin Ratio (1.60-3.17) g/dL 09/10/21 09/10/21 Range/Units 06:07 11:15 WBC (4.50-10.00) X 10*3/uL Hgb (13.0-17.0) g/dL RDW (11.5-14.5) % Immature Gran # (0.00-0.04) X 10*3/uL Neutrophils # (1.80-7.70) X 10*3/uL Monocytes # (0.20-1.00) X 10*3/uL POC Glucose (mg/dL) 124 H (75-99) mg/dL Calcium 7.8 L (8.7-10.3) mg/dL AST 12 L (14-35) U/L Total Protein 5.7 L (6.2-8.2) g/dL Albumin 3.5 L (3.8-4.9) g/dL Albumin/Globulin Ratio 1.59 L (1.60-3.17) g/dL Microbiology - Last 24 Hours (Table) 09/08/21 07:45 Blood Culture - Preliminary Blood No Growth after 48 hours 09/08/21 07:20 Blood Culture - Preliminary Blood No Growth after 48 hours Assessment and Plan (1) Cellulitis of right leg Current Visit: Yes Status: Acute Code(s): L03.115 - CELLULITIS OF RIGHT LOWER LIMB SNOMED Code(s): 884752320 (2) Sepsis Current Visit: Yes Status: Acute Code(s): A41.9 - SEPSIS, UNSPECIFIED ORGANISM SNOMED Code(s): 07608014 Plan: 1patient presented to hospital with sepsis in this patient did have a diffuse swelling redness of the right lower extremity likely the source of this sepsis and likely streptococcal cellulitis clinically not behaving as MRSA or gram- negative infection 2-Patient to continue with cefazolin to 3 g every 8 hour for another 24 hour before transitioning to oral antibiotics 3-compression stocking to the legs to keep the swelling down Time with Patient: Less than 30
[2021-09-11] MEDS: ceFAZolin 3 GM in SODIUM CHLORIDE 0.9% 100 ML IVPB SCH ×4 (00:33→23:38)
[2021-09-11 06:59] LABS: Glucose,Whole Blood 77 mg/dL (75-99)
[2021-09-11] MEDS: INSULIN ASPART (NovoLOG) 100 UNIT/ML VIAL SQ SCH ×3 (07:04→16:49)
[2021-09-11] MEDS: SPIRONOLACTONE 25 MG TAB PO SCH (08:20)
[2021-09-11] MEDS: carvediloL 6.25 MG TAB PO SCH ×2 (08:20→17:33)
[2021-09-11] MEDS: INSULIN DETEMIR (LEVEMIR) 100 UNIT/ML SYR SQ SCH ×2 (08:20→20:46)
[2021-09-11] MEDS: EZETIMIBE 10 MG TAB PO SCH (08:20)
[2021-09-11] MEDS: lisinopriL 10 MG TAB PO SCH ×2 (08:20→20:46)
[2021-09-11] MEDS: ATORVASTATIN 80 MG TAB PO SCH (08:20)
[2021-09-11] MEDS: FUROSEMIDE 40 MG TAB PO SCH ×2 (08:21→15:03)
[2021-09-11] MEDS: FAMOTIDINE 20 MG TAB PO SCH ×2 (08:21→20:46)
[2021-09-11] MEDS: APIXABAN 5 MG TAB PO SCH ×2 (08:21→20:46)
[2021-09-11] MEDS: ASCORBIC ACID 500 MG TAB PO SCH ×2 (08:21→20:46)
[2021-09-11] MEDS: Empagliflozin [Jardiance] PO SCH (08:21)
[2021-09-11] MEDS: ASPIRIN 81 MG PO SCH (08:21)
[2021-09-11] MEDS: amLODIPine 5 MG TAB PO SCH (08:21)
[2021-09-11] MEDS: AMIODARONE 100 MG TAB PO SCH (08:21)
[2021-09-11] MEDS: CHOLECALCIFEROL 25 MCG (1000 IU) TABLET PO SCH ×2 (08:21→20:46)
[2021-09-11] MEDS: metFORMIN 500 MG TAB PO SCH ×2 (08:25→17:33)
[2021-09-11 08:56] LABS: Basophils # (A) 0.06 X 10*3/uL (0.00-0.10); Basophils % (A) 0.5 %; Eosinophils # (A) 0.38 X 10*3/uL (0.04-0.35); HCT 40.2 % (39.6-50.0); HGB 12.7 g/dL (13.0-17.0); Immature Grans, Automated 0.5 %; Lymphocytes # (A) 2.04 X 10*3/uL (0.90-5.00); Lymphocytes % (A) 16.2 %; MCH 28.7 pg (27.0-32.0); MCHC 31.6 g/dL (32.0-37.0); Mean Platelet Volume 9.9 fL (9.5-12.2); Monocytes # (A) 0.84 X 10*3/uL (0.20-1.00); Monocytes % (A) 6.7 %; NRBC Per 100 WBC 0 /100 WBCS (0.0-0.0); Neutrophils # (A) 9.23 X 10*3/uL (1.80-7.70); Neutrophils % (A) 73.1 %; Platelet Count 211 X 10*3/uL (140-440); RBC 4.42 X 10*6/uL (4.40-5.60); RDW 15.8 % (11.5-14.5); WBC 12.61 X 10*3/uL (4.50-10.00)
[2021-09-11 09:03] LABS: African American GFR (CKD) 91.1 (60.0-200.0); Albumin 3.4 g/dL (3.8-4.9); Albumin/Globulin Ratio 1.53 (1.60-3.17); Anion Gap 13.4 mmol/L (10.00-18.00); BUN/Creat Ratio 19.02 Ratio (12.00-20.00); Blood Urea Nitrogen 18.7 mg/dL (9.0-27.0); Calcium 7.9 mg/dL (8.7-10.3); Globulin 2.2 g/dL (1.6-3.3); Non-African American GFR(CKD) 78.6 (60.0-200.0); Potassium 3.2 mmol/L (3.5-5.5); Total Bilirubin 0.3 mg/dL (0.30-1.20); Total Protein 5.6 g/dL (6.2-8.2)
[2021-09-11 11:10] LABS: Glucose,Whole Blood 152 mg/dL (75-99)
[2021-09-11] MEDS ORDERED: POTASSIUM CHLORIDE ER 20 MEQ TAB.ER PO STA (14:28)
--- NOTE | 2021-09-11 14:31 | P.PN ---
Subjective Progress Note Date: 09/11/21 HISTORY OF PRESENT ILLNESS: This is a 66-year-old male with a previous medical history significant for hy pertension and hypertensive cardiovascular disease, diabetes mellitus type 2 with hyperglycemia, paroxysmal atrial fibrillation, coronary artery disease status post PCI of the LCx back on 04/02/2020, vitamin D deficiency, ischemic cardiopathy, with a chronic systolic heart failure obstructive sleep apnea with obesity hypoventilation syndrome, patient presented to the emergency department with fever at home up to 102 and increased redness and swelling of the right lower extremity his lactic acid came back positive his white count were elevated at 30.000 because of that patient was admitted to the hospital for right lower extremity cellulitis with SIRS he was started on IV antibiotic with Ancef 2 gr IVPB Q 8 hours and ID consult was obtained from .. 09/09: Patient is sitting up in a chair in no apparent distress at this time, he denies any chest pain, or any shortness breath, he continues to feel generally weak, he has his both lower extremities wrapped up with Silvadene cream, c ontinue vancomycin, continue Ancef, infectious diseases is following, keep the leg elevated. 09/10: Patient is sitting up in a chair his feeling better today, he is wearing ALF hose, he denies any fever or chills, he has no abdominal pain, he has soft stools without diarrhea, no hematemesis or hematochezia and no black tarry stool, he has no abdominal pain at this point in time, he is tolerating t reatment very well. 09/11: Patient is feeling better today, he has more energy, he denies any chest p ain, shortness breath, he is tolerating her treatment very well, he complains of minimal sore throat, I will start him on a small dose of nystatin swish and swallow, possibly thrush, potassium a bit low today it will be replaced, he will be kept in the hospital for another 24 hours for IV antibiotic and he can be discharged home tomorrow morning on oral Keflex. REVIEW OF SYSTEMS: Constitutional: Positive for fever, no chills, no night sweats. No weight change. Positive for weakness, positive for fatigue no lethargy. No daytime sleepiness. HEENT: No headache. No blurred vision or double vision, no loss of vision. No loss of Hearing, no ringing in the ears, no dizziness. No nasal drainage or congestion. No epistaxis. No sore throat. Lungs: No shortness of breath, no cough, no sputum production. No wheezing. Reports dyspnea with activity. Cardiovascular: No chest pain, positive for lower extremity edema. No palpitations. No paroxysmal nocturnal dyspnea. No orthopnea. No li ghtheadedness or dizziness. No syncopal episodes. Abdominal: Reports abdominal pain. No nausea, vomiting. No diarrhea. No constipation. No bloody or tarry stools reports loss of appetite. Genitourinary: No dysuria, increased frequency, urgency. No urinary retention. Musculoskeletal: No myalgias. No muscle weakness, no gait dysfunction, no frequent falls. Positive for back pain. No neck pain. Integumentary: right lower extremity wound with cellulitis and increased erythema of the right lower extremity. No change in hair or nails. Neurologic: No aphasia. No facial droop. No change in mentation. No head injury. No headache. No paralysis. No paresthesia. Psychiatric: No depression. No anxiety. No mood swings. Endocrine: abnormal blood sugar, morbidly obese. PHYSICAL EXAMINATION: General: 66-year-old male laying down in bed in no apparent distress. HEENT: Head is atraumatic, normocephalic, pupils were equal round reactive to light and recommendation, extraocular muscle movement were intact, sclera nonicteric, conjunctivae were pale, mucous membranes of the mouth are somewhat dry. Neck: Supple, no JVP, normal carotid upstroke bilaterally, no lymphadenopathy. Chest: Decreased breath sounds at the bases, few rhonchi, no expiratory wheezes, no chest wall tenderness, no intercostal retractions. Heart: First heart sound is normal, second heart sounds normal there is systolic ejection murmur 2/6 located in the left sternal border. Abdomen: Soft, nontender, nondistended, positive bowel sounds, there is no hepatosplenomegaly Extremities: There is +2 edema no calf tenderness DP +2 bilaterally, there is right lower extremity cellulitis w tender spot to the back of the leg likely superficial thrombophlebitis Neurologic examination: Patient is awake alert and oriented X 3, cranial nerves II-12 appear grossly intact, muscle power were 5 out of 5 in upper extremities a nd 5 out of 5 in bilateral lower extremities, deep tendon reflexes normal bilaterally. ASSESSMENT AND PLAN: 1. Cellulitis with SIRS. Blood cultures were obtained, start the patient on cefazolin 3 g IV piggyback every 8 hours, apply Silvadene cream with wraps on a daily basis and Vancomycin 2000 mg IVPB Q 12 H patient will be kept in the hospital for another 24 hours he can be discharged home tomorrow morning on oral Keflex 2. CAD post-PCI of the LCx. Continue patient on aspirin 81 mg once every day, carvedilol 6.25 mg orally twice every day, atorvastatin 80 mg once every day, Zetia 10 mg orally once every day. 3. Hypertension and hypertensive cardio vascular disease. Continue lisinopril 10 mg twice a day, carvedilol 6.25 mg orally twice every day. 4. Hyperlipidemia. Continue patient on atorvastatin 80 mg orally once every day, continue Zetia 10 mg orally once every day. 5. Diabetes mellitus type 2. Continue patient on Lantus 60 units bid, continue sliding scale insulin, continue metformin 1000 mg orally twice every day, continue with Jardiance 10 mg orally daily if available. 6. Paroxysmal atrial fibrillation. Continue patient on Eliquis 5 mg orally twice every day, amiodarone 100 mg orally Thursday and Thursday. 7. Vitamin D deficiency. Continue vitamin D supplement. 8. Chronic systolic heart failure. Hep-Lock IV continue patient on Lasix 40 mg orally twice every day, spironolactone 25 mg orally once every day, continue lisinopril 10 mg orally once every day, continue carvedilol 6.25 mg orally twice every day per he 9. Obstructive sleep apnea. Continue patient on CPAP. 10. Chronic venous stasis with stasis dermatitis and recurrent cellulitis of the right lower extremity. Continue treatment as in paragraph #1. 11. DVT prophylaxis. Continue patient on Eliquis 5 mg orally twice every day. 12. GI prophylaxis. Continue patient on Pepcid 20 mg orally once every day. 13. Hypokalemia status post replacement. 14 . Home tomorrow morning. Objective - Vital Signs Vital signs: Vital Signs Temp 97.9 F 09/11/21 02:00 Pulse 67 09/11/21 02:00 Resp 17 09/11/21 02:00 BP 154/82 09/11/21 02:00 Pulse Ox 97 09/11/21 02:00 Intake & Output 09/10/21 09/11/21 09/11/21 18:59 06:59 18:59 Output Total 1450 Balance -1450 Output: Urine 1450 - Labs CBC & Chem 7: 09/11/21 05:29 09/11/21 05:29 Labs: Abnormal Lab Results - Last 24 Hours (Table) 09/10/21 09/10/21 09/10/21 Range/Units 06:07 06:07 11:15 WBC 14.58 H (4.50-10.00) X 10*3/uL Hgb 12.9 L (13.0-17.0) g/dL RDW 15.9 H (11.5-14.5) % Immature Gran # 0.05 H (0.00-0.04) X 10*3/uL Neutrophils # 11.32 H (1.80-7.70) X 10*3/uL Monocytes # 1.04 H (0.20-1.00) X 10*3/uL POC Glucose (mg/dL) 124 H (75-99) mg/dL Calcium 7.8 L (8.7-10.3) mg/dL AST 12 L (14-35) U/L Total Protein 5.7 L (6.2-8.2) g/dL Albumin 3.5 L (3.8-4.9) g/dL Albumin/Globulin Ratio 1.59 L (1.60-3.17) g/dL 09/10/21 09/10/21 Range/Units 16:31 20:40 WBC (4.50-10.00) X 10*3/uL Hgb (13.0-17.0) g/dL RDW (11.5-14.5) % Immature Gran # (0.00-0.04) X 10*3/uL Neutrophils # (1.80-7.70) X 10*3/uL Monocytes # (0.20-1.00) X 10*3/uL POC Glucose (mg/dL) 163 H 147 H (75-99) mg/dL Calcium (8.7-10.3) mg/dL AST (14-35) U/L Total Protein (6.2-8.2) g/dL Albumin (3.8-4.9) g/dL Albumin/Globulin Ratio (1.60-3.17) g/dL Microbiology - Last 24 Hours (Table) 09/08/21 07:45 Blood Culture - Preliminary Blood No Growth after 48 hours 09/08/21 07:20 Blood Culture - Preliminary Blood No Growth after 48 hours
[2021-09-11 16:46] LABS: Glucose,Whole Blood 112 mg/dL (75-99)
[2021-09-11 20:09] VITALS: RESP 17
[2021-09-11 20:24] LABS: Glucose,Whole Blood 193 mg/dL (75-99)
[2021-09-12 06:52] LABS: Glucose,Whole Blood 131 mg/dL (75-99)
[2021-09-12 07:44] VITALS: BP 138/80; PULSE 67; TEMP 99.2
[2021-09-12] MEDS: CHOLECALCIFEROL 25 MCG (1000 IU) TABLET PO SCH (07:53)
[2021-09-12] MEDS: ASPIRIN 81 MG PO SCH (07:53)
[2021-09-12] MEDS: metFORMIN 500 MG TAB PO SCH (07:53)
[2021-09-12] MEDS: INSULIN DETEMIR (LEVEMIR) 100 UNIT/ML SYR SQ SCH (07:53)
[2021-09-12] MEDS: lisinopriL 10 MG TAB PO SCH (07:53)
[2021-09-12] MEDS: EZETIMIBE 10 MG TAB PO SCH (07:54)
[2021-09-12] MEDS: FUROSEMIDE 40 MG TAB PO SCH (07:54)
[2021-09-12] MEDS: carvediloL 6.25 MG TAB PO SCH (07:54)
[2021-09-12] MEDS: ceFAZolin 3 GM in SODIUM CHLORIDE 0.9% 100 ML IVPB SCH (07:54)
[2021-09-12] MEDS: ATORVASTATIN 80 MG TAB PO SCH (07:54)
[2021-09-12] MEDS: APIXABAN 5 MG TAB PO SCH (07:54)
[2021-09-12] MEDS: SPIRONOLACTONE 25 MG TAB PO SCH (07:54)
[2021-09-12] MEDS: ASCORBIC ACID 500 MG TAB PO SCH (07:54)
[2021-09-12] MEDS: FAMOTIDINE 20 MG TAB PO SCH (07:54)
[2021-09-12] MEDS: amLODIPine 5 MG TAB PO SCH (07:54)
[2021-09-12] MEDS: INSULIN ASPART (NovoLOG) 100 UNIT/ML VIAL SQ SCH ×2 (07:55→11:31)
[2021-09-12] MEDS: Empagliflozin [Jardiance] PO SCH (07:56)
[2021-09-12 08:39] LABS: Basophils # (A) 0.07 X 10*3/uL (0.00-0.10); Basophils % (A) 0.6 %; Eosinophils # (A) 0.46 X 10*3/uL (0.04-0.35); Eosinophils % (A) 3.7 %; Immature Grans, Automated 0.7 %; Lymphocytes # (A) 2.51 X 10*3/uL (0.90-5.00); MCH 28.9 pg (27.0-32.0); MCHC 31.7 g/dL (32.0-37.0); MCV 91.1 fL (80.0-97.0); Monocytes # (A) 0.97 X 10*3/uL (0.20-1.00); Monocytes % (A) 7.7 %; NRBC Per 100 WBC 0 /100 WBCS (0.0-0.0); Neutrophils # (A) 8.45 X 10*3/uL (1.80-7.70); Neutrophils % (A) 67.3 %; Platelet Count 245 X 10*3/uL (140-440); RDW 15.7 % (11.5-14.5); WBC 12.55 X 10*3/uL (4.50-10.00)
[2021-09-12 08:56] LABS: Magnesium 1.9 mg/dL (1.5-2.4)
[2021-09-12 09:08] LABS: African American GFR (CKD) 101.4 (60.0-200.0); Anion Gap 13.7 mmol/L (10.00-18.00); BUN/Creat Ratio 19.56 Ratio (12.00-20.00); Blood Urea Nitrogen 17.6 mg/dL (9.0-27.0); Calcium 8.2 mg/dL (8.7-10.3); Carbon Dioxide 26.3 mmol/L (20.0-27.5); Non-African American GFR(CKD) 87.5 (60.0-200.0); Potassium 3.5 mmol/L (3.5-5.5)
[2021-09-12 11:25] LABS: Glucose,Whole Blood 128 mg/dL (75-99)
--- NOTE | 2021-09-12 13:01 | P.DS ---
Providers Date of admission: 09/09/21 08:39 Expected date of discharge: 09/12/21 Attending physician: Alana Mariano Consults: 09/08/21 08:17 Consult Physician Routine Consulting Provider: Varghese Richardson Consult Reason/Comments: sepsis, cellulitis Do you want consulting provider notified?: Yes Primary care physician: Alana Mariano Hospital Course: HISTORY OF PRESENT ILLNESS: This is a 66-year-old male with a previous medical history significant for hypertension and hypertensive cardiovascular disease, diabetes mellitus type 2 with hyperglycemia, paroxysmal atrial fibrillation, coronary artery disease status post PCI of the LCx back on 04/02/2020, vitamin D deficiency, ischemic cardiopathy, with a chronic systolic heart failure obstructive sleep apnea with obesity hypoventilation syndrome, patient presented to the emergency department with fever at home up to 102 and increased redness and swelling of the right lower extremity his lactic acid came back positive his white count were elevated at 30.000 because of that patient was admitted to the hospital for right lower extremity cellulitis with SIRS he was started on IV antibiotic with Ancef 2 gr IVPB Q 8 hours and ID consult was obtained from .. 09/09: Patient is sitting up in a chair in no apparent distress at this time, he denies any chest pain, or any shortness breath, he continues to feel generally weak, he has his both lower extremities wrapped up with Silvadene cream, continue vancomycin, continue Ancef, infectious diseases is following, keep the leg elevated. 09/10: Patient is sitting up in a chair his feeling better today, he is wearing ALF hose, he denies any fever or chills, he has no abdominal pain, he has soft stools without diarrhea, no hematemesis or hematochezia and no black tarry sto ol, he has no abdominal pain at this point in time, he is tolerating treatment very well. 09/11: Patient is feeling better today, he has more energy, he denies any chest pain, shortness breath, he is tolerating her treatment very well, he complains of minimal sore throat, I will start him on a small dose of nystatin swish and swallow, possibly thrush, potassium a bit low today it will be replaced, he will be kept in the hospital for another 24 hours for IV antibiotic and he can be discharged home tomorrow morning on oral Keflex. Discharge diagnoses: 1. Cellulitis with SIRS. 2. CAD post-PCI of the LCx. 3. Hypertension and hypertensive cardiovascular disease. 4. Hyperlipidemia. 5. Diabetes mellitus type 2. 6. Paroxysmal atrial fibrillation. 7. Vitamin D deficiency. 8. Chronic systolic heart failure. 9. Obstructive sleep apnea. 10. Chronic venous stasis with stasis dermatitis and recurrent cellulitis of the right lower extremity. Patient Condition at Discharge: Good Plan - Discharge Summary Discharge Rx Participant: No New Discharge Prescriptions: New Empagliflozin [Jardiance] 10 mg PO DAILY Cephalexin [Keflex] 500 mg PO TID #42 cap Continue metFORMIN HCL [Glucophage] 1,000 mg PO BID Apixaban [Eliquis] 5 mg PO BID #60 tab Aspirin EC [Ecotrin Low Dose] 81 mg PO DAILY Insulin Lispro [humaLOG Kwikpen] See Protocol SQ AC-TID Furosemide [Lasix] 40 mg PO BID@0900,1600 #180 tab lisinopriL [Zestril] 10 mg PO BID #180 tab Amiodarone [Cordarone] 100 mg PO MOWEFR amLODIPine [Norvasc] 5 mg PO DAILY #30 tab Ascorbic Acid [Vitamin C] 1,000 mg PO BID Atorvastatin [Lipitor] 80 mg PO DAILY Ibuprofen [Motrin Ib] 400 mg PO Q8H PRN PRN Reason: Pain SILVER sulfADIAZINE Cream [Silvadene 1% Cream] 1 applic TOPICAL DAILY PRN PRN Reason: WOUND CARE Dulaglutide [Trulicity] 0.75 mg SQ MARCOS Empagliflozin [Jardiance] 25 mg PO DAILY Cholecalciferol [Vitamin D3 (25 Mcg = 1000 Iu)] 50 mcg PO BID Ezetimibe [Zetia] 10 mg PO DAILY Insulin Glargine [Lantus Vial] 60 unit SQ BID Spironolactone [Aldactone] 25 mg PO DAILY carvediloL [Coreg] 6.25 mg PO BID Discharge Medication List metFORMIN HCL [Glucophage] 1,000 mg PO BID 10/18/16 [History] Apixaban [Eliquis] 5 mg PO BID #60 tab 10/24/16 [Rx] Aspirin EC [Ecotrin Low Dose] 81 mg PO DAILY 02/26/17 [History] Insulin Lispro [humaLOG Kwikpen] See Protocol SQ AC-TID 03/30/20 [History] Furosemide [Lasix] 40 mg PO BID@0900,1600 #180 tab 04/05/20 [Rx] lisinopriL [Zestril] 10 mg PO BID #180 tab 04/05/20 [Rx] Amiodarone [Cordarone] 100 mg PO MOWEFR 06/05/20 [History] amLODIPine [Norvasc] 5 mg PO DAILY #30 tab 06/30/20 [Rx] Ascorbic Acid [Vitamin C] 1,000 mg PO BID 07/17/21 [History] Atorvastatin [Lipitor] 80 mg PO DAILY 07/17/21 [History] Cholecalciferol [Vitamin D3 (25 Mcg = 1000 Iu)] 50 mcg PO BID 07/17/21 [History] Ezetimibe [Zetia] 10 mg PO DAILY 07/17/21 [History] Ibuprofen [Motrin Ib] 400 mg PO Q8H PRN 07/17/21 [History] Insulin Glargine [Lantus Vial] 60 unit SQ BID 07/17/21 [History] SILVER sulfADIAZINE Cream [Silvadene 1% Cream] 1 applic TOPICAL DAILY PRN 07/17/21 [History] Spironolactone [Aldactone] 25 mg PO DAILY 07/17/21 [History] carvediloL [Coreg] 6.25 mg PO BID 07/17/21 [History] Dulaglutide [Trulicity] 0.75 mg SQ MARCOS 09/08/21 [History] Empagliflozin [Jardiance] 25 mg PO DAILY 09/08/21 [History] Cephalexin [Keflex] 500 mg PO TID #42 cap 09/12/21 [Rx] Empagliflozin [Jardiance] 10 mg PO DAILY 09/12/21 [Rx] Follow up Appointment(s)/Referral(s): Alana Mariano MD [Primary Care Provider] - 09/17/21 10:00 am Patient Instructions/Handouts: Cellulitis (GEN) Discharge Disposition: HOME SELF-CARE
[2021-09-12] MEDS ORDERED: CEPHALEXIN 500 MG CAP PO SCH (16:00)
== END 2021-09-12 11:54 | disposition home or self-care (01) | DRG 872 ==
LOC: EC 06:56 → 4SSUR 08:18 → OBSVTOIN 09-09 08:39
PROVIDERS: ADMIT Internal Medicine; ATTEND Internal Medicine
DX: A41.9 Sepsis, unspecified organism (principal); I50.22 Chronic systolic (congestive) heart failure; L03.115 Cellulitis of right lower limb; E11.65 Type 2 diabetes mellitus with hyperglycemia; Z79.4 Long term (current) use of insulin; Z79.84 Long term (current) use of oral hypoglycemic drugs; E55.9 Vitamin D deficiency, unspecified; E78.5 Hyperlipidemia, unspecified; E87.6 Hypokalemia; Z87.891 Personal history of nicotine dependence; G47.33 Obstructive sleep apnea (adult) (pediatric); I11.0 Hypertensive heart disease with heart failure; I25.10 Atherosclerotic heart disease of native coronary artery without angina pectoris; I25.5 Ischemic cardiomyopathy; I48.0 Paroxysmal atrial fibrillation; I87.2 Venous insufficiency (chronic) (peripheral); I87.8 Other specified disorders of veins; M19.90 Unspecified osteoarthritis, unspecified site; J44.9 Chronic obstructive pulmonary disease, unspecified; Z79.01 Long term (current) use of anticoagulants; Z79.82 Long term (current) use of aspirin; Z79.899 Other long term (current) drug therapy; Z82.49 Family history of ischemic heart disease and other diseases of the circulatory system; Z98.61 Coronary angioplasty status; Z90.89 Acquired absence of other organs; Z90.49 Acquired absence of other specified parts of digestive tract
CPT/HCPCS: 36415; 80048; 80053; 83605; 83735; 85025; 85610; 85730; 87040; 96365; 99291

== ENCOUNTER 2023-03-08 16:31 | Emergency (ER) | payer MEDICARE ==
[2023-03-08] MEDS ORDERED: KETOROLAC 15 MG/ML 1 ML VIAL IVP STA (16:49)
[2023-03-08 17:42] LABS: Glucose,Whole Blood 56 mg/dL (70-110)
[2023-03-08 18:35] LABS: Basophils % (A) 0 %; Eosinophils # (A) 0.3 k/uL (0-0.7); Eosinophils % (A) 2 %; HCT 48.1 % (39.0-53.0); HGB 15.7 gm/dL (13.0-17.5); Lymphocytes # (A) 1.7 k/uL (1.0-4.8); Lymphocytes % (A) 12 %; MCH 29.1 pg (25.0-35.0); MCHC 32.7 g/dL (31.0-37.0); MCV 89.1 fL (80.0-100.0); Mean Platelet Volume 7.4; Monocytes # (A) 0.7 k/uL (0-1.0); Monocytes % (A) 5 %; Neutrophils # (A) 11.6 k/uL (1.3-7.7); Neutrophils % (A) 80 %; Platelet Count 246 k/uL (150-450); RDW 15.1 % (11.5-15.5); WBC 14.4 k/uL (3.8-10.6)
[2023-03-08 19:33] VITALS: RESP 18
[2023-03-08] MEDS ORDERED: ACETAMINOPHEN TAB 500 MG TAB PO STA (19:45)
[2023-03-08 20:18] LABS: ALT 21 U/L (4-49); AST 24 U/L (17-59); African American GFR (CKD) 84 (>60 ml/min/1.73 sqM); Albumin 3.7 g/dL (3.5-5.0); Alkaline Phosphatase 65 U/L (38-126); Anion Gap 11 mmol/L; Blood Urea Nitrogen 25 mg/dL (9-20); Calcium 8.8 mg/dL (8.4-10.2); Carbon Dioxide 21 mmol/L (22-30); Chloride 106 mmol/L (98-107); Glucose 153 mg/dL (74-99); Non-African American GFR(CKD) 73 (>60 ml/min/1.73 sqM); Potassium 4.3 mmol/L (3.5-5.1); Sodium 138 mmol/L (137-145); Total Bilirubin 0.7 mg/dL (0.2-1.3); Total Protein 6.4 g/dL (6.3-8.2)
[2023-03-08] MEDS ORDERED: CEPHALEXIN 500 MG CAP PO STA (21:03)
--- NOTE | 2023-03-08 21:05 | ED ---
General Adult HPI - General Chief complaint: Skin/Abscess/Foreign Body Stated complaint: Cellulitis Time Seen by Provider: 03/08/23 16:42 Source: patient Mode of arrival: ambulatory Limitations: no limitations - History of Present Illness Initial comments: Patient is a 67-year-old male who presents to the emergency department for right leg redness. It started yesterday. Patient states his leg is swollen and weeping. He has mild pain. No calf pain. Reports history of cellulitis in his leg. Does admit to low-grade fevers. Denies nausea and vomiting. Patient states overall he feels well but wanted to get ahead of the infection this time due to previous history of sepsis secondary to cellulitis. Denies history of DVT and PE. Denies chest pain and shortness of breath. - Related Data Home Medications Medication Instructions Recorded Confirmed metFORMIN HCL [Glucophage] 1,000 mg PO BID 10/18/16 08/26/22 Aspirin EC [Ecotrin Low Dose] 81 mg PO DAILY 02/26/17 08/26/22 Insulin Lispro [humaLOG Kwikpen] See Protocol SQ TID-W/MEALS 03/30/20 08/26/22 Ascorbic Acid [Vitamin C] 1,000 mg PO BID 07/17/21 08/26/22 Atorvastatin [Lipitor] 80 mg PO DAILY 07/17/21 08/26/22 Cholecalciferol [Vitamin D3 (25 50 mcg PO DAILY 07/17/21 08/26/22 Mcg = 1000 Iu)] Ezetimibe [Zetia] 10 mg PO DAILY 07/17/21 08/26/22 Ibuprofen [Motrin Ib] 800 mg PO Q8H PRN 07/17/21 08/26/22 Insulin Glargine [Lantus Vial] 50 - 60 unit SQ BID 07/17/21 08/26/22 carvediloL [Coreg] 9.375 mg PO BID 07/17/21 08/26/22 Empagliflozin [Jardiance] 25 mg PO DAILY 09/08/21 08/26/22 Amiodarone [Cordarone] 100 mg PO MOWEFR 08/26/22 08/26/22 Dulaglutide [Trulicity] 1.5 mg SQ DIRECTED 08/26/22 08/26/22 Previous Rx's Medication Instructions Recorded Apixaban [Eliquis] 5 mg PO BID #60 tab 10/24/16 Furosemide [Lasix] 40 mg PO BID@0900,1600 #180 tab 04/05/20 lisinopriL [Zestril] 10 mg PO BID #180 tab 04/05/20 amLODIPine [Norvasc] 5 mg PO DAILY #30 tab 06/30/20 Acetaminophen Tab [Tylenol Tab] 1,000 mg PO Q6HR PRN 10 Days #30 03/09/23 tablet Cephalexin [Keflex] 500 mg PO Q6HR 10 Days #40 cap 03/09/23 Allergies Allergy/AdvReac Type Severity Reaction Status Date / Time No Known Allergies Allergy Verified 03/08/23 16:35 Review of Systems ROS Statement: Those systems with pertinent positive or pertinent negative responses have been documented in the HPI. ROS Other: All systems not noted in ROS Statement are negative. Past Medical History Past Medical History: Atrial Fibrillation, Heart Failure, COPD, Diabetes Mellitus, Hyperlipidemia, Hypertension, Osteoarthritis (OA), Sleep Apnea/CPAP/BIPAP Additional Past Medical History / Comment(s): CELLULITIS TO RLE, cpap See Dr House H&P for cardiac history. History of Any Multi-Drug Resistant Organisms: None Reported Past Surgical History: Ablation, Appendectomy, Heart Catheterization, Tonsillectomy Additional Past Surgical History / Comment(s): "Heart cath done for ablation" Past Anesthesia/Blood Transfusion Reactions: No Reported Reaction Additional Past Anesthesia/Blood Transfusion Reaction / Comment(s): grumpy after surgery Past Psychological History: No Psychological Hx Reported Smoking Status: Former smoker Past Alcohol Use History: None Reported Past Drug Use History: None Reported - Past Family History Mother Family Medical History: No Reported History Father Family Medical History: Myocardial Infarction ([place]) General Exam Limitations: no limitations General appearance: alert Respiratory exam: Present: normal lung sounds bilaterally. Absent: respiratory distress, wheezes, rales, rhonchi, stridor Cardiovascular Exam: Present: regular rate, normal rhythm, normal heart sounds. Absent: systolic murmur, diastolic murmur, rubs, gallop, clicks Extremities exam: Present: other (Lower 3/4ths of right lower extremity is erythematous, warm, blanching, tender circumferentially. No calf tenderness. Neurovascular intact. Full range of motion) Neurological exam: Present: alert Psychiatric exam: Present: normal affect, normal mood Skin exam: Present: warm, dry, intact, normal color. Absent: rash Course Vital Signs 03/08/23 03/08/23 03/08/23 16:32 19:32 20:43 Temperature 99.3 F 101.7 F H 98.8 F Pulse Rate 86 86 Respiratory 20 18 Rate Blood Pressure 165/87 174/93 O2 Sat by Pulse 99 93 L Oximetry 03/08/23 21:15 Temperature 97.9 F Pulse Rate 74 Respiratory 18 Rate Blood Pressure 167/96 O2 Sat by Pulse 96 Oximetry Medical Decision Making - Medical Decision Making Was pt. sent in by a medical professional or institution (, HECTOR, BUNG DROPPER, urgent care, hospital, or halfway...) When possible be specific @ -No Did you speak to anyone other than the patient for history (EMS, parent, family, police, friend...)? What history was obtained from this source @ -No Did you review nursing and triage notes (agree or disagree)? Why? @ -I reviewed and agree with nursing and triage notes Were old charts reviewed (outside hosp., previous admission, EMS record, old EKG, old radiological studies, urgent care reports/EKG's, halfway records)? Report findings @ -Reviewed previous admission notes for cellulitis Differential Diagnosis (chest pain, altered mental status, abdominal pain women, abdominal pain men, vaginal bleeding, weakness, fever, dyspnea, syncope, headache, dizziness, GI bleed, back pain, seizure, CVA, palpatations, mental health)? @Cellulitis, abscess, sepsis, DVT EKG interpreted by me (3pts min.). @ -As above X-rays interpreted by me (1pt min.). @ -None done CT interpreted by me (1pt min.). @ -None done U/S interpreted by me (1pt. min.). @ -None done What testing was considered but not performed or refused? (CT, X-rays, U/S, labs)? Why? @ -None What meds were considered but not given or refused? Why? @ -None Did you discuss the management of the patient with other professionals (professionals i.e. HECTOR Pineda, BUNG DROPPER, lab, RT, psych nurse, criminal justice social worker, chrome polisher, teacher, space officer, rehabilitation case coordinator)? Give summary @ -No Was smoking cessation discussed for >3mins.? @ -No Was critical care preformed (if so, how long)? @ -No Were there social determinants of health that impacted care today? How? (Homelessness, low income, unemployed, alcoholism, drug addiction, transportation, low edu. Level, literacy, decrease access to med. care, half-way, rehab)? @ -No Was there de-escalation of care discussed even if they declined (Discuss DNR or withdrawal of care, Hospice)? DNR status @ -No What co-morbidities impacted this encounter? (DM, HTN, Smoking, COPD, CAD, Cancer, CVA, ARF, Chemo, Hep., AIDS, mental health diagnosis, sleep apnea, morbid obesity)? @ -None Was patient admitted / discharged? Hospital course, mention meds given and route, prescriptions, significant lab abnormalities, going to OR and other pertinent info. @ -Patient presenting with cellulitis of most of the lower portion of the right leg. He is febrile 101.7F. He is nontoxic appearing. I obtained labs for further evaluation. There is leukocytosis of 14.4. Lactic is within normal limits. Discussed disposition options with patient. Patient has cellulitis with leukocytosis-given his history I feel he would benefit from IV antibiotics. Patient states he would like to go home. He has not trialed oral antibiotics for this episode of cellulitis yet. Patient will be discharged with Keflex. We discussed very strict return parameters and patient verbalizes understanding. Undiagnosed new problem with uncertain prognosis? @ -No Drug Therapy requiring intensive monitoring for toxicity (Heparin, Nitro, Insulin, Cardizem)? @ -No Were any procedures done? @ -No Diagnosis/symptom? @ -Cellulitis Acute, or Chronic, or Acute on Chronic? @Acute Uncomplicated (without systemic symptoms) or Complicated (systemic symptoms)? @ -Complicated Side effects of treatment? @ -No Exacerbation, Progression, or Severe Exacerbation? @ -No Poses a threat to life or bodily function? How? (Chest pain, [place], [place], pneumonia, PE, COPD, DKA, ARF, appy, cholecystitis, CVA, Diverticulitis, Homicidal, Suicidal, threat to staff... and all critical care pts) @ -No Dr. Pedroza is my attending - Lab Data Result diagrams: 03/08/23 18:23 03/08/23 19:30 Lab Results 03/08/23 03/08/23 03/08/23 Range/Units 17:41 18:23 19:30 WBC 14.4 H (3.8-10.6) k/uL RBC 5.40 (4.30-5.90) m/uL Hgb 15.7 (13.0-17.5) gm/dL Hct 48.1 (39.0-53.0) % MCV 89.1 (80.0-100.0) fL MCH 29.1 (25.0-35.0) pg MCHC 32.7 (31.0-37.0) g/dL RDW 15.1 (11.5-15.5) % Plt Count 246 (150-450) k/uL MPV 7.4 Neutrophils % 80 % Lymphocytes % 12 % Monocytes % 5 % Eosinophils % 2 % Basophils % 0 % Neutrophils # 11.6 H (1.3-7.7) k/uL Lymphocytes # 1.7 (1.0-4.8) k/uL Monocytes # 0.7 (0-1.0) k/uL Eosinophils # 0.3 (0-0.7) k/uL Basophils # 0.0 (0-0.2) k/uL Sodium 138 (137-145) mmol/L Potassium 4.3 (3.5-5.1) mmol/L Chloride 106 (98-107) mmol/L Carbon Dioxide 21 L (22-30) mmol/L Anion Gap 11 mmol/L BUN 25 H (9-20) mg/dL Creatinine 1.05 (0.66-1.25) mg/dL Est GFR (CKD-EPI)AfAm 84 (>60 ml/min/1.73 sqM) Est GFR (CKD-EPI)NonAf 73 (>60 ml/min/1.73 sqM) Glucose 153 H (74-99) mg/dL POC Glucose (mg/dL) 56 L (70-110) mg/dL POC Glu Pals Specialist ID Caleb, Brigitte Plasma Lactic Acid Alan (0.7-2.0) mmol/L Calcium 8.8 (8.4-10.2) mg/dL Total Bilirubin 0.7 (0.2-1.3) mg/dL AST 24 (17-59) U/L ALT 21 (4-49) U/L Alkaline Phosphatase 65 (38-126) U/L Total Protein 6.4 (6.3-8.2) g/dL Albumin 3.7 (3.5-5.0) g/dL 03/08/23 Range/Units 20:03 WBC (3.8-10.6) k/uL RBC (4.30-5.90) m/uL Hgb (13.0-17.5) gm/dL Hct (39.0-53.0) % MCV (80.0-100.0) fL MCH (25.0-35.0) pg MCHC (31.0-37.0) g/dL RDW (11.5-15.5) % Plt Count (150-450) k/uL MPV Neutrophils % % Lymphocytes % % Monocytes % % Eosinophils % % Basophils % % Neutrophils # (1.3-7.7) k/uL Lymphocytes # (1.0-4.8) k/uL Monocytes # (0-1.0) k/uL Eosinophils # (0-0.7) k/uL Basophils # (0-0.2) k/uL Sodium (137-145) mmol/L Potassium (3.5-5.1) mmol/L Chloride (98-107) mmol/L Carbon Dioxide (22-30) mmol/L Anion Gap mmol/L BUN (9-20) mg/dL Creatinine (0.66-1.25) mg/dL Est GFR (CKD-EPI)AfAm (>60 ml/min/1.73 sqM) Est GFR (CKD-EPI)NonAf (>60 ml/min/1.73 sqM) Glucose (74-99) mg/dL POC Glucose (mg/dL) (70-110) mg/dL POC Glu Pals Specialist ID Plasma Lactic Acid Alan 1.6 (0.7-2.0) mmol/L Calcium (8.4-10.2) mg/dL Total Bilirubin (0.2-1.3) mg/dL AST (17-59) U/L ALT (4-49) U/L Alkaline Phosphatase (38-126) U/L Total Protein (6.3-8.2) g/dL Albumin (3.5-5.0) g/dL Disposition Clinical Impression: Cellulitis of right lower extremity Disposition: HOME SELF-CARE Condition: Fair Additional Instructions: Take medication as directed. Please follow-up with your primary care provider in 1-2 days. Return to the emergency department if you experience new, concerning, or worsening symptoms, including but not limited to, persistent fever, vomiting, increased redness. Prescriptions: Cephalexin [Keflex] 500 mg PO Q6HR 10 Days #40 cap Acetaminophen Tab [Tylenol Tab] 1,000 mg PO Q6HR PRN 10 Days #30 tablet PRN Reason: fever, pain Is patient prescribed a controlled substance at d/c from ED?: No Referrals: Alana Mariano MD [Primary Care Provider] - 1-2 days
[2023-03-08 21:21] VITALS: BP 167/96; PULSE 74; TEMP 97.9
--- NOTE | 2023-03-09 09:04 | ED ---
Medical Decision Making - Lab Data Result diagrams: 03/08/23 18:23 03/08/23 19:30 Lab Results 03/08/23 03/08/23 03/08/23 Range/Units 17:41 18:23 19:30 WBC 14.4 H (3.8-10.6) k/uL RBC 5.40 (4.30-5.90) m/uL Hgb 15.7 (13.0-17.5) gm/dL Hct 48.1 (39.0-53.0) % MCV 89.1 (80.0-100.0) fL MCH 29.1 (25.0-35.0) pg MCHC 32.7 (31.0-37.0) g/dL RDW 15.1 (11.5-15.5) % Plt Count 246 (150-450) k/uL MPV 7.4 Neutrophils % 80 % Lymphocytes % 12 % Monocytes % 5 % Eosinophils % 2 % Basophils % 0 % Neutrophils # 11.6 H (1.3-7.7) k/uL Lymphocytes # 1.7 (1.0-4.8) k/uL Monocytes # 0.7 (0-1.0) k/uL Eosinophils # 0.3 (0-0.7) k/uL Basophils # 0.0 (0-0.2) k/uL Sodium 138 (137-145) mmol/L Potassium 4.3 (3.5-5.1) mmol/L Chloride 106 (98-107) mmol/L Carbon Dioxide 21 L (22-30) mmol/L Anion Gap 11 mmol/L BUN 25 H (9-20) mg/dL Creatinine 1.05 (0.66-1.25) mg/dL Est GFR (CKD-EPI)AfAm 84 (>60 ml/min/1.73 sqM) Est GFR (CKD-EPI)NonAf 73 (>60 ml/min/1.73 sqM) Glucose 153 H (74-99) mg/dL POC Glucose (mg/dL) 56 L (70-110) mg/dL POC Glu Curve Saw Operator ID Caleb, Brigitte Plasma Lactic Acid Alan (0.7-2.0) mmol/L Calcium 8.8 (8.4-10.2) mg/dL Total Bilirubin 0.7 (0.2-1.3) mg/dL AST 24 (17-59) U/L ALT 21 (4-49) U/L Alkaline Phosphatase 65 (38-126) U/L Total Protein 6.4 (6.3-8.2) g/dL Albumin 3.7 (3.5-5.0) g/dL 03/08/23 Range/Units 20:03 WBC (3.8-10.6) k/uL RBC (4.30-5.90) m/uL Hgb (13.0-17.5) gm/dL Hct (39.0-53.0) % MCV (80.0-100.0) fL MCH (25.0-35.0) pg MCHC (31.0-37.0) g/dL RDW (11.5-15.5) % Plt Count (150-450) k/uL MPV Neutrophils % % Lymphocytes % % Monocytes % % Eosinophils % % Basophils % % Neutrophils # (1.3-7.7) k/uL Lymphocytes # (1.0-4.8) k/uL Monocytes # (0-1.0) k/uL Eosinophils # (0-0.7) k/uL Basophils # (0-0.2) k/uL Sodium (137-145) mmol/L Potassium (3.5-5.1) mmol/L Chloride (98-107) mmol/L Carbon Dioxide (22-30) mmol/L Anion Gap mmol/L BUN (9-20) mg/dL Creatinine (0.66-1.25) mg/dL Est GFR (CKD-EPI)AfAm (>60 ml/min/1.73 sqM) Est GFR (CKD-EPI)NonAf (>60 ml/min/1.73 sqM) Glucose (74-99) mg/dL POC Glucose (mg/dL) (70-110) mg/dL POC Glu Curve Saw Operator ID Plasma Lactic Acid Alan 1.6 (0.7-2.0) mmol/L Calcium (8.4-10.2) mg/dL Total Bilirubin (0.2-1.3) mg/dL AST (17-59) U/L ALT (4-49) U/L Alkaline Phosphatase (38-126) U/L Total Protein (6.3-8.2) g/dL Albumin (3.5-5.0) g/dL Disposition Clinical Impression: Cellulitis of right lower extremity Disposition: HOME SELF-CARE Condition: Fair Additional Instructions: Take medication as directed. Please follow-up with your primary care provider in 1-2 days. Return to the emergency department if you experience new, concerning, or worsening symptoms, including but not limited to, persistent fever, vomiting, increased redness. Prescriptions: Cephalexin [Keflex] 500 mg PO Q6HR 10 Days #40 cap Acetaminophen Tab [Tylenol Tab] 1,000 mg PO Q6HR PRN 10 Days #30 tablet PRN Reason: fever, pain Is patient prescribed a controlled substance at d/c from ED?: No Referrals: Alana Mariano MD [Primary Care Provider] - 1-2 days
== END 2023-03-08 21:24 | disposition home or self-care (01) ==
LOC: EC 16:31
DX: L03.115 Cellulitis of right lower limb (principal); I48.91 Unspecified atrial fibrillation; J44.9 Chronic obstructive pulmonary disease, unspecified; E11.9 Type 2 diabetes mellitus without complications; E78.5 Hyperlipidemia, unspecified; I11.0 Hypertensive heart disease with heart failure; I50.9 Heart failure, unspecified; M19.90 Unspecified osteoarthritis, unspecified site; Z87.891 Personal history of nicotine dependence; Z79.82 Long term (current) use of aspirin; Z79.4 Long term (current) use of insulin; Z79.84 Long term (current) use of oral hypoglycemic drugs; Z79.01 Long term (current) use of anticoagulants; Z79.899 Other long term (current) drug therapy
CPT/HCPCS: 36415; 80053; 83605; 85025; 87070; 87205; 99284; 96374; J1885

== ENCOUNTER 2023-06-02 14:22 | Inpatient (IN) | payer MEDICARE ==
--- NOTE | 2023-06-02 14:50 | ED ---
Extremity Problem HPI - General Source: patient, RN notes reviewed, old records reviewed Mode of arrival: ambulatory Limitations: no limitations <Parker Cuevas - Last Filed: 06/02/23 14:48> - General Source: patient, RN notes reviewed, old records reviewed Mode of arrival: wheelchair Limitations: no limitations - History of Present Illness MD Complaint: extremity pain, extremity swelling <Mayelin Quintanilla - Last Filed: 06/03/23 03:30> - General Chief complaint: Extremity Problem,Nontraumatic Stated complaint: RIGHT LEG PAIN Time Seen by Provider: 06/02/23 14:48 - History of Present Illness Initial comments: 68-year-old male presents emergency Department chief complaint of right leg infection. Patient states she's suffered with recurrent cellulitis. Patient states he started having increasing pain last few days patient states he had a temp 103. Patient denies any chest pain or shortness breath no history of DVT. (Parker Cuevas) This is a 68-year-old male who presents to the emergency department for concerns of a right leg infection. States that he's had problems with recurrent cellulitis to this leg. It is always swollen, however it has become increasingly red and painful over the last couple of days, and today he started to have a wound draining from the leg. Also states that he had a temperature of 103F before leaving the house today. He was last treated with antibiotics (Keflex) on 03/09/23, which was on an outpatient basis. (Mayelin Quintanilla) - Related Data Home Medications Medication Instructions Recorded Confirmed metFORMIN HCL [Glucophage] 1,000 mg PO BID 10/18/16 06/02/23 Aspirin EC [Ecotrin Low Dose] 81 mg PO DAILY 02/26/17 06/02/23 Ascorbic Acid [Vitamin C] 1,000 mg PO DAILY 07/17/21 06/02/23 Atorvastatin [Lipitor] 80 mg PO DAILY 07/17/21 06/02/23 Cholecalciferol [Vitamin D3 (25 50 mcg PO DAILY 07/17/21 06/02/23 Mcg = 1000 Iu)] Ezetimibe [Zetia] 10 mg PO DAILY 07/17/21 06/02/23 Insulin Glargine [Lantus Vial] 50 unit SQ BID 07/17/21 06/02/23 Empagliflozin [Jardiance] 25 mg PO DAILY 09/08/21 06/02/23 Amiodarone [Cordarone] 100 mg PO MOWEFR 08/26/22 06/02/23 Dulaglutide [Trulicity] 4.5 mg SQ MARCOS 06/02/23 06/02/23 Spironolactone [Aldactone] 25 mg PO DAILY 06/02/23 06/02/23 Valsartan [Diovan] 160 mg PO BID 06/02/23 06/02/23 carvediloL [Coreg] 12.5 mg PO BID 06/02/23 06/02/23 Previous Rx's Medication Instructions Recorded Apixaban [Eliquis] 5 mg PO BID #60 tab 10/24/16 Allergies Allergy/AdvReac Type Severity Reaction Status Date / Time No Known Allergies Allergy Verified 06/02/23 22:07 Review of Systems ROS Other: All systems not noted in ROS Statement are negative. <Parker Cuevas - Last Filed: 06/02/23 14:48> ROS Other: All systems not noted in ROS Statement are negative. <Mayelin Quintanilla - Last Filed: 06/03/23 03:30> ROS Statement: Those systems with pertinent positive or pertinent negative responses have been documented in the HPI. Past Medical History Past Medical History: Atrial Fibrillation, Heart Failure, COPD, Diabetes Mellitus, Hyperlipidemia, Hypertension, Osteoarthritis (OA), Sleep Apnea/CPAP/BIPAP Additional Past Medical History / Comment(s): CELLULITIS TO RLE, cpap See Dr House H&P for cardiac history. History of Any Multi-Drug Resistant Organisms: None Reported Past Surgical History: Ablation, Appendectomy, Heart Catheterization, Tonsillectomy Additional Past Surgical History / Comment(s): "Heart cath done for ablation" Past Anesthesia/Blood Transfusion Reactions: No Reported Reaction Additional Past Anesthesia/Blood Transfusion Reaction / Comment(s): grumpy after surgery Past Psychological History: No Psychological Hx Reported Smoking Status: Former smoker Past Alcohol Use History: None Reported Past Drug Use History: None Reported - Past Family History Mother Family Medical History: No Reported History Father Family Medical History: Myocardial Infarction ([place]) <Parker Cuevas - Last Filed: 06/02/23 14:48> General Exam <Parker Cuevas - Last Filed: 06/02/23 14:48> Limitations: no limitations General appearance: alert, in no apparent distress Head exam: Present: atraumatic, normocephalic, normal inspection Respiratory exam: Present: normal lung sounds bilaterally. Absent: respiratory distress, wheezes, rales, rhonchi, stridor Cardiovascular Exam: Present: regular rate, normal rhythm, normal heart sounds. Absent: systolic murmur, diastolic murmur, rubs, gallop, clicks Extremities exam: Present: other (Swelling, erythema, warmth, and tenderness to the right tib-fib. There is a superficial wound to the anterior aspect with minor active drainage.) Neurological exam: Present: alert, oriented X3, CN II-XII intact Psychiatric exam: Present: normal affect, normal mood <Mayelin Quintanilla - Last Filed: 06/03/23 03:30> - General Exam Comments Initial Comments: Visual Physical Exam Vital signs reviewed General: Well-appearing, nontoxic, no acute distress. Head: Normocephalic, atraumatic Eyes: PERRLA, EOMI ENT: Airway patent Chest: Nonlabored breathing Skin: No visual rash, normal skin tone Neuro: Alert and oriented 3 Musculoskeletal: No gross abnormalities (Parker Cuevas) Course Vital Signs 06/02/23 06/02/23 15:43 23:06 Temperature 101.3 F H 99.1 F Pulse Rate 87 80 Respiratory 18 18 Rate Blood Pressure 152/82 134/72 O2 Sat by Pulse 94 L 94 L Oximetry Medical Decision Making <Parker Cuevas - Last Filed: 06/02/23 14:48> - Lab Data Result diagrams: 06/02/23 17:33 06/02/23 17:33 - Radiology Data Radiology results: report reviewed, image reviewed <Mayelin Quintanilla - Last Filed: 06/03/23 03:30> - Medical Decision Making I completed the quick note portion of this chart signed Parker Cuevas PA-C (Parker Cuevas) This is a 68-year-old male who presents to the emergency department for right leg pain and swelling. Was pt. sent in by a medical professional or institution? @ -No Did you speak to anyone other than the patient for history? @ -No Did you review nursing and triage notes? @ -Yes, and I agree, it is accurate with regards to the patient's symptoms. Were old charts reviewed? @ -No Differential Diagnosis? @ -Differential Leg Pain: Leg fracture, leg sprain, DVT, PVD, arterial insufficiency, iliac artery aneurysm, cellulitis, compartment syndrome, tendinopathy, nerve entrapment, piriformis syndrome, osteoarthritis, rhabdomyolysis, myositis, cramping from an electrolyte imbalance, this is not meant to be an all inclusive list. EKG interpreted by me (3pts min.)? @ -EKG interpreted by me demonstrating the following: Sinus rhythm. Ventricular rate 86 bpm, NE interval 235 ms, QRS duration 118 ms, QTC 436 ms. X-rays interpreted by me (1pt min.)? @ -X-ray of the right tib/fib obtained. My interpretation identifies soft tissue swelling. CT interpreted by me (1pt min.)? @ -Not obtained U/S interpreted by me (1pt. min.)? @ -Not obtained What testing was considered but not performed? (CT, X-rays, U/S, labs)? Why? @ -None What meds were considered but not given? Why? @ -None Did you discuss the management of the patient with other professionals? @ -Yes, Dr. Mariano, who accepts the patient for admission. Did you reconcile home meds? @ -Yes Was smoking cessation discussed for >3mins.? @ -No Was critical care preformed (if so, how long)? @ -No Were there social determinants of health that impacted care today? How? (Homelessness, low income, unemployed, alcoholism, drug addiction, transportation, low edu. Level, literacy, decrease access to med. care, long term, rehab)? @ -No Was there de-escalation of care discussed even if they declined? (Discuss DNR or withdrawal of care, Hospice)? @ -No What co-morbidities impacted this encounter? (DM, HTN, Smoking, COPD, CAD, Cancer, CVA, Hep., AIDS, mental health diagnosis, sleep apnea, morbid obesity)? @ -DM, morbid obesity, CHF Was patient admitted / discharged? @ -Admitted. Physical examination of the right lower extremity demonstrates notable swelling, erythema, and warmth. There was a small area of open drainage. We did try to obtain a wound culture of this, however this was covered in antibiotic ointment and after cleaning it up, there was not much drainage left to culture. Patient meets septic criteria based on leukocytosis with a WBC of 21.1 and being febrile with a temperature of 101.3F. X-ray of the right tib- fib obtained revealing soft tissue swelling and no evidence of subcutaneous gas formation or osseous destruction. He was in the waiting room for a long period of time due to the extensive wait time in the emergency department, and the septic protocol was not started as soon as it otherwise would have been. He was given a 3L bolus of IV fluids, which was reduced from the typical fluid requirement due to a hx of CHF. Blood cultures were obtained and he was started on Vancomycin and Cefepime. Tylenol administered for the fever. Patient admitted to medicine for sepsis secondary to right lower extremity cellulitis. Undiagnosed new problem with uncertain prognosis? @ -None Drug Therapy requiring intensive monitoring for toxicity (Heparin, Nitro, Insulin, Cardizem)? @ -None Were any procedures done? @ -None Diagnosis/symptom? @ -Right lower extremity cellulitis, sepsis Acute, or Chronic, or Acute on Chronic? @ -Acute Uncomplicated (without systemic symptoms) or Complicated (systemic symptoms)? @ -Uncomplicated Side effects of treatment? @ -None Exacerbation, Progression, or Severe Exacerbation] @ -Not applicable Poses a threat to life or bodily function? @ -Yes This case was discussed in detail with the attending ED physician, Dr. Salas. Presentation, findings, and treatment plan discussed in detail as well. (Mayelin Quintanilla) - Lab Data Lab Results 06/02/23 06/02/23 06/02/23 Range/Units 17:33 17:33 17:33 WBC 21.1 H (3.8-10.6) k/uL RBC 5.42 (4.30-5.90) m/uL Hgb 16.2 (13.0-17.5) gm/dL Hct 49.0 (39.0-53.0) % MCV 90.3 (80.0-100.0) fL MCH 29.9 (25.0-35.0) pg MCHC 33.1 (31.0-37.0) g/dL RDW 14.9 (11.5-15.5) % Plt Count 254 (150-450) k/uL MPV 7.9 Neutrophils % 88 % Lymphocytes % 5 % Monocytes % 5 % Eosinophils % 1 % Basophils % 0 % Neutrophils # 18.6 H (1.3-7.7) k/uL Lymphocytes # 1.1 (1.0-4.8) k/uL Monocytes # 1.1 H (0-1.0) k/uL Eosinophils # 0.1 (0-0.7) k/uL Basophils # 0.0 (0-0.2) k/uL ESR (0-20) mm/Hr Sodium 139 (137-145) mmol/L Potassium 4.8 (3.5-5.1) mmol/L Chloride 101 (98-107) mmol/L Carbon Dioxide 26 (22-30) mmol/L Anion Gap 12 mmol/L BUN 22 H (9-20) mg/dL Creatinine 1.07 (0.66-1.25) mg/dL Est GFR (CKD-EPI)AfAm 82 (>60 ml/min/1.73 sqM) Est GFR (CKD-EPI)NonAf 71 (>60 ml/min/1.73 sqM) Glucose 147 H (74-99) mg/dL Plasma Lactic Acid Alan 1.6 (0.7-2.0) mmol/L Calcium 9.2 (8.4-10.2) mg/dL Total Bilirubin 0.7 (0.2-1.3) mg/dL AST 21 (17-59) U/L ALT 25 (4-49) U/L Alkaline Phosphatase 77 (38-126) U/L C-Reactive Protein (<1.0) mg/dL NT-Pro-B Natriuret Pep pg/mL Total Protein 7.0 (6.3-8.2) g/dL Albumin 4.3 (3.5-5.0) g/dL 06/02/23 06/02/23 06/02/23 Range/Units 19:54 19:54 21:24 WBC (3.8-10.6) k/uL RBC (4.30-5.90) m/uL Hgb (13.0-17.5) gm/dL Hct (39.0-53.0) % MCV (80.0-100.0) fL MCH (25.0-35.0) pg MCHC (31.0-37.0) g/dL RDW (11.5-15.5) % Plt Count (150-450) k/uL MPV Neutrophils % % Lymphocytes % % Monocytes % % Eosinophils % % Basophils % % Neutrophils # (1.3-7.7) k/uL Lymphocytes # (1.0-4.8) k/uL Monocytes # (0-1.0) k/uL Eosinophils # (0-0.7) k/uL Basophils # (0-0.2) k/uL ESR 40 H (0-20) mm/Hr Sodium (137-145) mmol/L Potassium (3.5-5.1) mmol/L Chloride (98-107) mmol/L Carbon Dioxide (22-30) mmol/L Anion Gap mmol/L BUN (9-20) mg/dL Creatinine (0.66-1.25) mg/dL Est GFR (CKD-EPI)AfAm (>60 ml/min/1.73 sqM) Est GFR (CKD-EPI)NonAf (>60 ml/min/1.73 sqM) Glucose (74-99) mg/dL Plasma Lactic Acid Alan (0.7-2.0) mmol/L Calcium (8.4-10.2) mg/dL Total Bilirubin (0.2-1.3) mg/dL AST (17-59) U/L ALT (4-49) U/L Alkaline Phosphatase (38-126) U/L C-Reactive Protein 4.5 H (<1.0) mg/dL NT-Pro-B Natriuret Pep 1700 pg/mL Total Protein (6.3-8.2) g/dL Albumin (3.5-5.0) g/dL Disposition <Parker Cuevas - Last Filed: 06/02/23 14:48> <Mayelin Quintanilla - Last Filed: 06/03/23 03:30> Clinical Impression: Cellulitis of right lower extremity, Sepsis Disposition: ADMITTED IP TO THIS HOSP
[2023-06-02 18:35] LABS: Basophils % (A) 0 %; Eosinophils # (A) 0.1 k/uL (0-0.7); Eosinophils % (A) 1 %; HGB 16.2 gm/dL (13.0-17.5); Lymphocytes # (A) 1.1 k/uL (1.0-4.8); Lymphocytes % (A) 5 %; MCH 29.9 pg (25.0-35.0); MCHC 33.1 g/dL (31.0-37.0); MCV 90.3 fL (80.0-100.0); Mean Platelet Volume 7.9; Monocytes # (A) 1.1 k/uL (0-1.0); Monocytes % (A) 5 %; Neutrophils # (A) 18.6 k/uL (1.3-7.7); Neutrophils % (A) 88 %; Platelet Count 254 k/uL (150-450); RBC 5.42 m/uL (4.30-5.90); RDW 14.9 % (11.5-15.5); WBC 21.1 k/uL (3.8-10.6)
[2023-06-02 18:39] LABS: ALT 25 U/L (4-49); AST 21 U/L (17-59); African American GFR (CKD) 82 (>60 ml/min/1.73 sqM); Albumin 4.3 g/dL (3.5-5.0); Alkaline Phosphatase 77 U/L (38-126); Anion Gap 12 mmol/L; Blood Urea Nitrogen 22 mg/dL (9-20); Calcium 9.2 mg/dL (8.4-10.2); Carbon Dioxide 26 mmol/L (22-30); Chloride 101 mmol/L (98-107); Glucose 147 mg/dL (74-99); Non-African American GFR(CKD) 71 (>60 ml/min/1.73 sqM); Potassium 4.8 mmol/L (3.5-5.1); Sodium 139 mmol/L (137-145); Total Bilirubin 0.7 mg/dL (0.2-1.3)
[2023-06-02] MEDS ORDERED: ACETAMINOPHEN TAB 500 MG TAB PO STA (19:29)
[2023-06-02] MEDS ORDERED: VANCOMYCIN IV PER PHARMACY 1 EACH MISC MISCELLANE PRN (19:33)
[2023-06-02] MEDS ORDERED: VANCOMYCIN 2,000 MG in SODIUM CHLORIDE 0.9% 500 ML 500 ML IVPB STA (19:57)
--- NOTE | 2023-06-02 20:03 | XR ---
EXAMINATION TYPE: XR tibia fibula RT DATE OF EXAM: 06/02/2023 CLINICAL HISTORY: pain TECHNIQUE: AP and lateral images of the right tibia and fibula are obtained. COMPARISON: None. FINDINGS: There is no acute fracture/dislocation evident. The joint spaces appear within normal carreno its. Soft tissue edema correlate for underlying cellulitis. IMPRESSION: There is no acute fracture or dislocation seen. ICD 10 NO FRACTURE, INITIAL EVALUATION
[2023-06-02] MEDS ORDERED: SODIUM CHLORIDE 0.9% 5,000 ML IV STA (20:14)
[2023-06-02] MEDS ORDERED: SODIUM CHLORIDE 0.9% 3,000 ML IV STA (21:21)
[2023-06-02] MEDS: CEFEPIME 2 GM in SODIUM CHLORIDE 0.9% 100 ML IVPB SCH (21:22)
[2023-06-02] MEDS: SODIUM CHLORIDE 0.9% 1,000 ML IV SCH (21:22)
[2023-06-02] MEDS ORDERED: ONDANSETRON 4 MG/2 ML VIAL IVP PRN (21:50)
[2023-06-02] MEDS ORDERED: NALOXONE 0.4 MG/ML 1 ML VIAL IV PRN (21:50)
[2023-06-02] MEDS ORDERED: HYDROcodone/APAP 5-325MG 1 EACH TAB PO PRN (21:50)
[2023-06-02] MEDS ORDERED: MORPHINE SULFATE 4 MG/ML SYRINGE IV PRN (21:50)
[2023-06-02] MEDS: SODIUM CHLORIDE 0.9% 500 ML 500 ML IV SCH (22:58)
[2023-06-02] MEDS: APIXABAN 5 MG TAB PO SCH (23:18)
[2023-06-03] MEDS: CEFEPIME 2 GM in SODIUM CHLORIDE 0.9% 100 ML IVPB SCH ×3 (03:49→20:07)
[2023-06-03] MEDS: ACETAMINOPHEN TAB 325 MG TAB PO PRN (04:06)
[2023-06-03 06:27] LABS: Glucose,Whole Blood 86 mg/dL (70-110)
[2023-06-03] MEDS: SODIUM CHLORIDE 0.9% 1,000 ML IV SCH ×3 (06:28→17:32)
[2023-06-03] MEDS: VALSARTAN 160 MG TAB PO SCH ×2 (09:02→23:45)
[2023-06-03] MEDS: DAPAGLIFLOZIN PROPANEDIOL 10 MG TABLET PO SCH (09:02)
[2023-06-03] MEDS: INSULIN DETEMIR (LEVEMIR) 100 UNIT/ML SYR SQ SCH ×2 (09:02→20:09)
[2023-06-03] MEDS: AMIODARONE 100 MG TAB PO SCH (09:03)
[2023-06-03] MEDS: EZETIMIBE 10 MG TAB PO SCH (09:03)
[2023-06-03] MEDS: ATORVASTATIN 80 MG TAB PO SCH (09:03)
[2023-06-03] MEDS: ASPIRIN 81 MG PO SCH (09:03)
[2023-06-03] MEDS: ASCORBIC ACID 500 MG TAB PO SCH (09:03)
[2023-06-03] MEDS: CHOLECALCIFEROL 25 MCG (1000 IU) TABLET PO SCH (09:03)
[2023-06-03] MEDS: metFORMIN 500 MG TAB PO SCH ×2 (09:03→20:09)
[2023-06-03] MEDS: carvediloL 12.5 MG TAB PO SCH ×2 (09:03→20:08)
[2023-06-03] MEDS: SPIRONOLACTONE 25 MG TAB PO SCH (09:03)
[2023-06-03] MEDS: APIXABAN 5 MG TAB PO SCH ×2 (09:03→20:08)
[2023-06-03] MEDS: VANCOMYCIN 2,000 MG in SODIUM CHLORIDE 0.9% 500 ML 500 ML IVPB SCH ×2 (10:00→23:45)
[2023-06-03 11:15] LABS: African American GFR (CKD) >90 (>60 ml/min/1.73 sqM); Non-African American GFR(CKD) 89 (>60 ml/min/1.73 sqM)
[2023-06-03] MEDS ORDERED: DEXTROSE 50% SYRINGE 50 ML IVP PRN ×2 (16:12)
--- NOTE | 2023-06-03 17:14 | P.HPIM ---
History of Present Illness H&P Date: 06/03/23 Chief Complaint: Right leg cellulitis with sepsis HISTORY OF PRESENT ILLNESS: This is a 68-year-old male with a previous medical history significant for hypertension and hypertensive cardiovascular disease, diabetes mellitus type 2 with hyperglycemia, paroxysmal atrial fibrillation, coronary artery disease status post PCI of the LCx back on 04/02/2020, vitamin D deficiency, ischemic cardiomyopathy, with a chronic systolic heart failure obstructive sleep apnea with obesity hypoventilation syndrome, patient presented to the emergency department with fever at home up to 103 and increased redness and swelling of the right lower extremity his lactic acid came back negative and he did have leukocytosis so he was started on IV Vancomycin and Cefepime after obtaining blo od cultures and was admitted to the hospital for treatmnet he did receive IVF at 130 ml per hours ad now will decrease to 75 ml/h, he is doing better and his temperature is down REVIEW OF SYSTEMS: Constitutional: Positive for fever, no chills, no night sweats. No weight change. Positive for weakness, positive for fatigue no lethargy. No daytime sleepiness. HEENT: No headache. No blurred vision or double vision, no loss of vision. No loss of Hearing, no ringing in the ears, no dizziness. No nasal drainage or congestion. No epistaxis. No sore throat. Lungs: No shortness of breath, no cough, no sputum production. No wheezing. Reports dyspnea with activity. Cardiovascular: No chest pain, positive for lower extremity edema. No palpitations. No paroxysmal nocturnal dyspnea. No orthopnea. No lightheadedness or dizziness. No syncopal episodes. Abdominal: Reports abdominal pain. No nausea, vomiting. No diarrhea. No constipation. No bloody or tarry stools reports loss of appetite. Genitourinary: No dysuria, increased frequency, urgency. No urinary retention. Musculoskeletal: No myalgias. No muscle weakness, no gait dysfunction, no frequent falls. Positive for back pain. No neck pain. Integumentary: right lower extremity wound with cellulitis and increased erythema of the right lower extremity with venous ulcer . No change in hair or nails. Neurologic: No aphasia. No facial droop. No change in mentation. No head injury. No headache. No paralysis. No paresthesia. Psychiatric: No depression. No anxiety. No mood swings. Endocrine: abnormal blood sugar, morbidly obese. PAST MEDICAL HISTORY: CAD post-PCI of the LCx Hypertension and hypertensive cardiovascular disease. Hyperlipidemia Diabetes mellitus type 2. Paroxysmal atrial fibrillation. Vitamin D deficiency. Ischemic cardiomyopathy. Chronic systolic heart failure. Obstructive sleep apnea Chronic venous stasis with stasis dermatitis. PAST SURGICAL HISTORY: Left heart catheterization with PCI of the LCx 03/25/2020. Colonoscopy Cardiac ablation for atria fibrillation in 2017. Appendectomy. Tonsillectomy. SOCIAL HISTORY: Patient used to smoke cigar 3 a day since the age of 15 and quit at the age of 59 patient started smoking on 07/06/2004, patient drinks 1-2 cups of coffee, he denies any marijuana use he denies any alcohol use or abuse. FAMILY HISTORY: Father at age of 55 from myocardial infarction mother at the age of 67 from sepsis patient has one sister 69-year-old who is healthy. PHYSICAL EXAMINATION: General: 68-year-old male laying down in bed in no apparent distress. HEENT: Head is atraumatic, normocephalic, pupils were equal round reactive to light and recommendation, extraocular muscle movement were intact, sclera nonicteric, conjunctivae were pale, mucous membranes of the mouth are somewhat dry. Neck: Supple, no JVP, normal carotid upstroke bilaterally, no lymphadenopathy. Chest: Decreased breath sounds at the bases, few rhonchi, no expiratory wheezes, no chest wall tenderness, no intercostal retractions. Heart: First heart sound is normal, second heart sounds normal there is systolic ejection murmur 2/6 located in the left sternal border. Abdomen: Soft, nontender, nondistended, positive bowel sounds, there is no hepatosplenomegaly Extremities: There is +2 edema no calf tenderness DP +2 bilaterally, there is right lower extremity cellulitis with small venous ulcer and no drainage Neurologic examination: Patient is awake alert and oriented X 3, cranial nerves II-12 appear grossly intact, muscle power were 5 out of 5 in upper extremities and 5 out of 5 in bilateral lower extremities, deep tendon reflexes normal bilaterally. ASSESSMENT AND PLAN: 1. Cellulitis with Sepsis. Blood cultures were obtained, start the patient on Vancomycin and Cefepime and we will continue with SSD 1 % cream apply to the right lower extremity with PRINCESS wrap and keep leg elevated 2. CAD post-PCI of the LCx. Continue patient on aspirin 81 mg once every day, carvedilol 12.5 mg orally twice every day, atorvastatin 80 mg once every day, Zetia 10 mg orally once every day. 3. Hypertension and hypertensive cardiovascular disease. Continue Valsartan 160 mg po bid, Coreg 12.5 mg po bid, Amlodipine 10 mg po daily and we will continue to monitor BP very closely 4. Hyperlipidemia. Continue patient on atorvastatin 80 mg orally once every day, continue Zetia 10 mg orally once every day. 5. Diabetes mellitus type 2. Continue patient on Levemir 50 units bid, continue sliding scale insulin, continue metformin 1000 mg orally twice every day, continue with Farxiga 10 mg po daily along with trulicity 4.5 mg Sc q week, BGM AC Meals and HS 6. Paroxysmal atrial fibrillation. Continue patient on Eliquis 5 mg orally twice every day, amiodarone 100 mg orally Thursday and Thursday, we will continue with Coreg 12.5 mg po bid 7. Vitamin D deficiency. Continue vitamin D supplement. 8. Chronic systolic heart failure.decrease IVF to 65 ml per hour and we will continue with Coreg 12.5 mg po bid, Spironolactone 25 mg po daily, Valsartan 160 mg po bid along with farxiga 10 mg po daily 9. Obstructive sleep apnea. Continue patient on CPAP. 10. Chronic venous stasis with stasis dermatitis and recurrent cellulitis of the right lower extremity. Continue treatment as in paragraph #1. 11. DVT prophylaxis. Continue patient on Eliquis 5 mg orally twice every day. 12. GI prophylaxis. Continue patient on Pepcid 20 mg orally once every day. 13. Admit to inpatient. Estimated length of stay 2 midnights. 14. Full code. Past Medical History Past Medical History: Atrial Fibrillation, Heart Failure, COPD, Diabetes Mellitus, Hyperlipidemia, Hypertension, Osteoarthritis (OA), Sleep Apne a/CPAP/BIPAP Additional Past Medical History / Comment(s): CELLULITIS TO RLE, cpap See Dr House H&P for cardiac history. History of Any Multi-Drug Resistant Organisms: None Reported Past Surgical History: Ablation, Appendectomy, Heart Catheterization, Tonsillectomy Additional Past Surgical History / Comment(s): "Heart cath done for ablation" Past Anesthesia/Blood Transfusion Reactions: No Reported Reaction Additional Past Anesthesia/Blood Transfusion Reaction / Comment(s): grumpy after surgery Past Psychological History: No Psychological Hx Reported Smoking Status: Former smoker Past Alcohol Use History: None Reported Past Drug Use History: None Reported - Past Family History Mother Family Medical History: No Reported History Father Family Medical History: Myocardial Infarction ([place]) Medications and Allergies Home Medications Medication Instructions Recorded Confirmed Type metFORMIN HCL [Glucophage] 1,000 mg PO BID 10/18/16 06/02/23 History Apixaban [Eliquis] 5 mg PO BID #60 tab 10/24/16 06/02/23 Rx Aspirin EC [Ecotrin Low Dose] 81 mg PO DAILY 02/26/17 06/02/23 History Ascorbic Acid [Vitamin C] 1,000 mg PO DAILY 07/17/21 06/02/23 History Atorvastatin [Lipitor] 80 mg PO DAILY 07/17/21 06/02/23 History Cholecalciferol [Vitamin D3 (25 50 mcg PO DAILY 07/17/21 06/02/23 History Mcg = 1000 Iu)] Ezetimibe [Zetia] 10 mg PO DAILY 07/17/21 06/02/23 History Insulin Glargine [Lantus Vial] 50 unit SQ BID 07/17/21 06/02/23 History Empagliflozin [Jardiance] 25 mg PO DAILY 09/08/21 06/02/23 History Amiodarone [Cordarone] 100 mg PO MOWEFR 08/26/22 06/02/23 History Dulaglutide [Trulicity] 4.5 mg SQ MARCOS 06/02/23 06/02/23 History Spironolactone [Aldactone] 25 mg PO DAILY 06/02/23 06/02/23 History Valsartan [Diovan] 160 mg PO BID 06/02/23 06/02/23 History carvediloL [Coreg] 12.5 mg PO BID 06/02/23 06/02/23 History Allergies Allergy/AdvReac Type Severity Reaction Status Date / Time No Known Allergies Allergy Verified 06/02/23 22:07 Physical Exam Vitals: Vital Signs Temp Pulse Pulse Resp BP BP Pulse Ox 06/03/23 15:46 79 18 127/78 98 06/03/23 13:00 84 18 128/74 98 06/03/23 12:00 82 18 131/80 98 06/03/23 11:00 94 18 134/88 98 06/03/23 10:00 82 18 128/76 98 06/03/23 09:13 70 18 123/71 94 L 06/03/23 03:47 99.1 F 80 20 139/75 96 06/02/23 23:06 99.1 F 80 18 134/72 94 L Intake and Output 06/03/23 06/03/23 06/03/23 06:59 14:59 22:59 Output Total 600 Balance -600 Output: Urine 600 Results CBC & Chem 7: 06/02/23 17:33 06/03/23 10:51 Labs: Abnormal Lab Results - Last 24 Hours (Table) 06/02/23 06/02/23 06/02/23 Range/Units 17:33 17:33 19:54 WBC 21.1 H (3.8-10.6) k/uL Neutrophils # 18.6 H (1.3-7.7) k/uL Monocytes # 1.1 H (0-1.0) k/uL ESR 40 H (0-20) mm/Hr BUN 22 H (9-20) mg/dL Glucose 147 H (74-99) mg/dL C-Reactive Protein (<1.0) mg/dL 06/02/23 Range/Units 19:54 WBC (3.8-10.6) k/uL Neutrophils # (1.3-7.7) k/uL Monocytes # (0-1.0) k/uL ESR (0-20) mm/Hr BUN (9-20) mg/dL Glucose (74-99) mg/dL C-Reactive Protein 4.5 H (<1.0) mg/dL Microbiology - Last 24 Hours (Table) 06/02/23 19:54 Gram Stain - Preliminary Leg - Right
[2023-06-03 18:11] LABS: Glucose,Whole Blood 106 mg/dL (70-110)
[2023-06-03] MEDS: INSULIN ASPART (NovoLOG) 100 UNIT/ML VIAL SQ SCH ×2 (18:14→22:17)
[2023-06-03 20:45] LABS: Glucose,Whole Blood 157 mg/dL (70-110)
[2023-06-04] MEDS: CEFEPIME 2 GM in SODIUM CHLORIDE 0.9% 100 ML IVPB SCH ×3 (04:37→23:25)
[2023-06-04 04:41] LABS: Glucose,Whole Blood 65 mg/dL (70-110)
[2023-06-04] MEDS: SODIUM CHLORIDE 0.9% 1,000 ML IV SCH ×2 (04:43→17:05)
[2023-06-04 05:55] LABS: Glucose,Whole Blood 97 mg/dL (70-110)
[2023-06-04] MEDS: INSULIN ASPART (NovoLOG) 100 UNIT/ML VIAL SQ SCH ×4 (05:59→23:17)
[2023-06-04 07:23] LABS: ALT 20 U/L (4-49); AST 20 U/L (17-59); African American GFR (CKD) >90 (>60 ml/min/1.73 sqM); Albumin 3.1 g/dL (3.5-5.0); Albumin/Globulin Ratio 1.2; Alkaline Phosphatase 58 U/L (38-126); Anion Gap 9 mmol/L; Blood Urea Nitrogen 18 mg/dL (9-20); Calcium 7.7 mg/dL (8.4-10.2); Carbon Dioxide 20 mmol/L (22-30); Chloride 108 mmol/L (98-107); Globulin 2.5 g/dL; Glucose 91 mg/dL (74-99); Non-African American GFR(CKD) 88 (>60 ml/min/1.73 sqM); Sodium 137 mmol/L (137-145); Total Bilirubin 0.7 mg/dL (0.2-1.3); Total Protein 5.6 g/dL (6.3-8.2)
[2023-06-04] MEDS: ASPIRIN 81 MG PO SCH (10:07)
[2023-06-04] MEDS: CHOLECALCIFEROL 25 MCG (1000 IU) TABLET PO SCH (10:07)
[2023-06-04] MEDS: carvediloL 12.5 MG TAB PO SCH ×2 (10:08→23:25)
[2023-06-04] MEDS: ASCORBIC ACID 500 MG TAB PO SCH (10:08)
[2023-06-04] MEDS: SPIRONOLACTONE 25 MG TAB PO SCH (10:08)
[2023-06-04] MEDS: metFORMIN 500 MG TAB PO SCH ×2 (10:08→23:25)
[2023-06-04] MEDS: APIXABAN 5 MG TAB PO SCH ×2 (10:08→23:24)
[2023-06-04] MEDS: INSULIN DETEMIR (LEVEMIR) 100 UNIT/ML SYR SQ SCH ×2 (10:08→23:25)
[2023-06-04] MEDS: ATORVASTATIN 80 MG TAB PO SCH (10:09)
[2023-06-04] MEDS: VALSARTAN 160 MG TAB PO SCH ×2 (10:09→23:24)
[2023-06-04] MEDS: DAPAGLIFLOZIN PROPANEDIOL 10 MG TABLET PO SCH (10:09)
[2023-06-04] MEDS: EZETIMIBE 10 MG TAB PO SCH (10:09)
[2023-06-04] MEDS: VANCOMYCIN 2,000 MG in SODIUM CHLORIDE 0.9% 500 ML 500 ML IVPB SCH (10:18)
[2023-06-04 11:18] LABS: Basophils # (A) 0.07 X 10*3/uL (0.00-0.10); Basophils % (A) 0.4 %; Eosinophils # (A) 0.41 X 10*3/uL (0.04-0.35); Eosinophils % (A) 2.6 %; HCT 41.6 % (39.6-50.0); HGB 13.2 g/dL (13.0-17.0); Lymphocytes # (A) 2.23 X 10*3/uL (0.90-5.00); Lymphocytes % (A) 14.3 %; MCH 29.3 pg (27.0-32.0); MCHC 31.7 g/dL (32.0-37.0); MCV 92.4 FL (80.0-97.0); Mean Platelet Volume 9.9 FL (9.5-12.2); NRBC Per 100 WBC 0 X 10*3/uL (0.00-0.01); Neutrophils % (A) 73.2 %; Platelet Count 201 X 10*3/uL (140-440); RDW 15.7 % (11.5-14.5); WBC 15.59 X 10*3/uL (4.50-10.00)
[2023-06-04 11:31] LABS: Glucose,Whole Blood 101 mg/dL (70-110)
--- NOTE | 2023-06-04 13:42 | P.PN ---
Subjective Progress Note Date: 06/04/23 HISTORY OF PRESENT ILLNESS: This is a 68-year-old male with a previous medical history significant for hy pertension and hypertensive cardiovascular disease, diabetes mellitus type 2 with hyperglycemia, paroxysmal atrial fibrillation, coronary artery disease status post PCI of the LCx back on 04/02/2020, vitamin D deficiency, ischemic cardiomyopathy, with a chronic systolic heart failure obstructive sleep apnea with obesity hypoventilation syndrome, patient presented to the emergency department with fever at home up to 103 and increased redness and swelling of the right lower extremity his lactic acid came back negative and he did have leukocytosis so he was started on IV Vancomycin and Cefepime after obtaining blood cultures and was admitted to the hospital for treatmnet he did receive IVF at 130 ml per hours ad now will decrease to 75 ml/h, he is doing better and his temperature is down. 06/04: Patient is seen today on the [facility] floor. Patient has been started on IV antibiotics the form of cefepime and vancomycin and local wound care with Silvadene wraps. Wound culture is presumptive staph aureus. Blood pressure 134/47, heart rate in the 70s, patient has been afebrile. Pulse ox 97% on room air. Repeat blood work reveals WBC 15.5, hemoglobin 13.2, platelet count 201. Sodium 137, potassium 4, chloride 108, CO2 20, BUN 18 creatinine 0.87. Blood sugars have been running between 65 and 157. REVIEW OF SYSTEMS: Constitutional: Positive for fever, no chills, no night sweats. No weight change. Positive for weakness, positive for fatigue no lethargy. No daytime sleepiness. HEENT: No headache. No blurred vision or double vision, no loss of vision. No loss of Hearing, no ringing in the ears, no dizziness. No nasal drainage or congestion. No epistaxis. No sore throat. Lungs: No shortness of breath, no cough, no sputum production. No wheezing. Reports dyspnea with activity. Cardiovascular: No chest pain, positive for lower extremity edema. No palpitations. No paroxysmal nocturnal dyspnea. No orthopnea. No lightheadedness or dizziness. No syncopal episodes. Abdominal: Reports abdominal pain. No nausea, vomiting. No diarrhea. No constipation. No bloody or tarry stools reports loss of appetite. Genitourinary: No dysuria, increased frequency, urgency. No urinary retention. Musculoskeletal: No myalgias. No muscle weakness, no gait dysfunction, no f requent falls. Positive for back pain. No neck pain. Integumentary: right lower extremity wound with cellulitis and increased erythema of the right lower extremity with venous ulcer . No change in hair or nails. Neurologic: No aphasia. No facial droop. No change in mentation. No head injury. No headache. No paralysis. No paresthesia. Psychiatric: No depression. No anxiety. No mood swings. Endocrine: abnormal blood sugar, morbidly obese. PHYSICAL EXAMINATION: General: 68-year-old male laying down in bed in no apparent distress. HEENT: Head is atraumatic, normocephalic, pupils were equal round reactive to light and recommendation, extraocular muscle movement were intact, sclera nonic teric, conjunctivae were pale, mucous membranes of the mouth are somewhat dry. Neck: Supple, no JVP, normal carotid upstroke bilaterally, no lymphadenopathy. Chest: Decreased breath sounds at the bases, few rhonchi, no expiratory wheezes, no chest wall tenderness, no intercostal retractions. Heart: First heart sound is normal, second heart sounds normal there is systolic ejection murmur 2/6 located in the left sternal border. Abdomen: Soft, nontender, nondistended, positive bowel sounds, there is no hepatosplenomegaly Extremities: There is +2 edema no calf tenderness DP +2 bilaterally, there is right lower extremity cellulitis with small venous ulcer and no drainage Neurologic examination: Patient is awake alert and oriented X 3, cranial nerves II-12 appear grossly intact, muscle power were 5 out of 5 in upper extremities and 5 out of 5 in bilateral lower extremities, deep tendon reflexes normal bilaterally. ASSESSMENT AND PLAN: 1. Cellulitis with Sepsis. Blood cultures were obtained, start the patient on Vancomycin and Cefepime and we will continue with SSD 1 % cream apply to the right lower extremity with PRINCESS wrap and keep leg elevated. Continue to monitor wound culture 2. CAD post-PCI of the LCx. Continue patient on aspirin 81 mg once every day, carvedilol 12.5 mg orally twice every day, atorvastatin 80 mg once every day, Zetia 10 mg orally once every day. 3. Hypertension and hypertensive cardiovascular disease. Continue Valsartan 160 mg po bid, Coreg 12.5 mg po bid, Amlodipine 10 mg po daily and we will continue to monitor BP very closely 4. Hyperlipidemia. Continue patient on atorvastatin 80 mg orally once every day, continue Zetia 10 mg orally once every day. 5. Diabetes mellitus type 2. Continue patient on Levemir 50 units bid, continue sliding scale insulin, continue metformin 1000 mg orally twice every day, continue with Farxiga 10 mg po daily along with trulicity 4.5 mg Sc q week, BGM AC Meals and HS 6. Paroxysmal atrial fibrillation. Continue patient on Eliquis 5 mg orally twice every day, amiodarone 100 mg orally Thursday and Thursday, we will continue with Coreg 12.5 mg po bid 7. Vitamin D deficiency. Continue vitamin D supplement. 8. Chronic systolic heart failure.decrease IVF to 65 ml per hour and we will continue with Coreg 12.5 mg po bid, Spironolactone 25 mg po daily, Valsartan 160 mg po bid along with farxiga 10 mg po daily 9. Obstructive sleep apnea. Continue patient on CPAP. 10. Chronic venous stasis with stasis dermatitis and recurrent cellulitis of the right lower extremity. Continue treatment as in paragraph #1. 11. DVT prophylaxis. Continue patient on Eliquis 5 mg orally twice every day. 12. GI prophylaxis. Continue patient on Pepcid 20 mg orally once every day. 13. Consult PT. 14. Full code. Impression and plan of care have been directed as dictated by the signing physi cian. Lakeisha Lu nurse practitioner acting as scribe for signing physician. Objective - Vital Signs Vital signs: Vital Signs Temp 97.5 F L 06/04/23 08:05 Pulse 70 06/04/23 08:05 Resp 20 06/04/23 08:05 BP 134/47 06/04/23 08:05 Pulse Ox 97 06/04/23 08:05 FiO2 Intake & Output 06/03/23 06/04/23 06/04/23 18:59 06:59 18:59 Other: # Voids 1 4 - Labs CBC & Chem 7: 06/04/23 05:40 06/04/23 05:40 Labs: Abnormal Lab Results - Last 24 Hours (Table) 06/03/23 06/04/23 06/04/23 Range/Units 20:43 04:40 05:40 Chloride 108 H (98-107) mmol/L Carbon Dioxide 20 L (22-30) mmol/L POC Glucose (mg/dL) 157 H 65 L (70-110) mg/dL Calcium 7.7 L (8.4-10.2) mg/dL Total Protein 5.6 L (6.3-8.2) g/dL Albumin 3.1 L (3.5-5.0) g/dL Microbiology - Last 24 Hours (Table) 06/02/23 17:45 Blood Culture - Preliminary Blood 06/02/23 18:00 Blood Culture - Preliminary Blood 06/02/23 19:54 Gram Stain - Preliminary Leg - Right Wound Culture - Preliminary Presumptive Staph aureus
[2023-06-04 17:01] LABS: Glucose,Whole Blood 134 mg/dL (70-110)
[2023-06-04 20:16] LABS: Glucose,Whole Blood 148 mg/dL (70-110)
[2023-06-05] MEDS: VANCOMYCIN 2,000 MG in SODIUM CHLORIDE 0.9% 500 ML 500 ML IVPB SCH ×2 (00:38→10:14)
[2023-06-05 06:32] LABS: Glucose,Whole Blood 81 mg/dL (70-110)
[2023-06-05] MEDS: INSULIN ASPART (NovoLOG) 100 UNIT/ML VIAL SQ SCH ×4 (06:42→21:41)
[2023-06-05] MEDS: ACETAMINOPHEN TAB 325 MG TAB PO PRN (06:46)
[2023-06-05] MEDS: CEFEPIME 2 GM in SODIUM CHLORIDE 0.9% 100 ML IVPB SCH ×2 (06:47→11:54)
[2023-06-05] MEDS: INSULIN DETEMIR (LEVEMIR) 100 UNIT/ML SYR SQ SCH ×2 (07:22→21:42)
[2023-06-05] MEDS: SODIUM CHLORIDE 0.9% 1,000 ML IV SCH ×2 (07:28→23:57)
[2023-06-05] MEDS: ASCORBIC ACID 500 MG TAB PO SCH (07:33)
[2023-06-05] MEDS: ASPIRIN 81 MG PO SCH (07:33)
[2023-06-05] MEDS: VALSARTAN 160 MG TAB PO SCH ×2 (07:34→21:41)
[2023-06-05] MEDS: APIXABAN 5 MG TAB PO SCH ×2 (07:34→21:41)
[2023-06-05] MEDS: CHOLECALCIFEROL 25 MCG (1000 IU) TABLET PO SCH (07:34)
[2023-06-05] MEDS: carvediloL 12.5 MG TAB PO SCH ×2 (07:34→21:41)
[2023-06-05] MEDS: SPIRONOLACTONE 25 MG TAB PO SCH (07:34)
[2023-06-05] MEDS: EZETIMIBE 10 MG TAB PO SCH (07:34)
[2023-06-05] MEDS: metFORMIN 500 MG TAB PO SCH ×2 (07:34→21:41)
[2023-06-05] MEDS: DAPAGLIFLOZIN PROPANEDIOL 10 MG TABLET PO SCH (07:34)
[2023-06-05] MEDS: ATORVASTATIN 80 MG TAB PO SCH (07:34)
[2023-06-05] MEDS ORDERED: VANCOMYCIN TROUGH DUE 1 EACH MISC MISCELLANE ONE (09:00)
[2023-06-05] MEDS: AMIODARONE 100 MG TAB PO SCH (10:15)
[2023-06-05 11:40] LABS: Glucose,Whole Blood 110 mg/dL (70-110)
[2023-06-05 12:20] LABS: African American GFR (CKD) >90 (>60 ml/min/1.73 sqM); Non-African American GFR(CKD) 88 (>60 ml/min/1.73 sqM)
--- NOTE | 2023-06-05 12:33 | P.PN ---
Subjective Progress Note Date: 06/05/23 HISTORY OF PRESENT ILLNESS: This is a 68-year-old male with a previous medical history significant for hy pertension and hypertensive cardiovascular disease, diabetes mellitus type 2 with hyperglycemia, paroxysmal atrial fibrillation, coronary artery disease status post PCI of the LCx back on 04/02/2020, vitamin D deficiency, ischemic cardiomyopathy, with a chronic systolic heart failure obstructive sleep apnea with obesity hypoventilation syndrome, patient presented to the emergency department with fever at home up to 103 and increased redness and swelling of the right lower extremity his lactic acid came back negative and he did have leukocytosis so he was started on IV Vancomycin and Cefepime after obtaining blood cultures and was admitted to the hospital for treatmnet he did receive IVF at 130 ml per hours ad now will decrease to 75 ml/h, he is doing better and his temperature is down. 06/04: [facility] Patient has been started on IV antibiotics the form of cefepime and vancomycin and local wound care with Silvadene wraps. Wound culture is presumptive staph aureus. Blood pressure 134/47, heart rate in the 70s, patient has been afebrile. Pulse ox 97% on room air. Repeat blood work reveals WBC 15.5, hemoglobin 13.2, platelet count 201. Sodium 137, potassium 4, chloride 108, CO2 20, BUN 18 creatinine 0.87. Blood sugars have been running between 65 and 157. 06/05: Patient has been afebrile, heart rate 70, blood pressure 149/88, pulse ox 94% on room air. Patient is utilizing CPAP at night. Creatinine 0.86. Patient has been on cefepime and vancomycin. Wound culture is positive for MSSA and antibiotics will be transitioned to 2 G IV Piggyback Every 8 Hours. Blood Culture No Growth at 48 Hours 2 REVIEW OF SYSTEMS: Constitutional: Positive for fever, no chills, no night sweats. No weight change. Positive for weakness, positive for fatigue no lethargy. No daytime sleepiness. HEENT: No headache. No blurred vision or double vision, no loss of vision. No loss of Hearing, no ringing in the ears, no dizziness. No nasal drainage or congestion. No epistaxis. No sore throat. Lungs: No shortness of breath, no cough, no sputum production. No wheezing. Reports dyspnea with activity. Cardiovascular: No chest pain, positive for lower extremity edema. No palpitations. No paroxysmal nocturnal dyspnea. No orthopnea. No li ghtheadedness or dizziness. No syncopal episodes. Abdominal: Reports abdominal pain. No nausea, vomiting. No diarrhea. No constipation. No bloody or tarry stools reports loss of appetite. Genitourinary: No dysuria, increased frequency, urgency. No urinary retention. Musculoskeletal: No myalgias. No muscle weakness, no gait dysfunction, no frequent falls. Positive for back pain. No neck pain. Integumentary: right lower extremity wound with cellulitis and increased erythema of the right lower extremity with venous ulcer . No change in hair or nails. Neurologic: No aphasia. No facial droop. No change in mentation. No head injury. No headache. No paralysis. No paresthesia. Psychiatric: No depression. No anxiety. No mood swings. Endocrine: abnormal blood sugar, morbidly obese. PHYSICAL EXAMINATION: General: 68-year-old male laying down in bed in no apparent distress. HEENT: Head is atraumatic, normocephalic, pupils were equal round reactive to light and recommendation, extraocular muscle movement were intact, sclera nonicteric, conjunctivae were pale, mucous membranes of the mouth are somewhat dry. Neck: Supple, no JVP, normal carotid upstroke bilaterally, no lymphadenopathy. Chest: Decreased breath sounds at the bases, few rhonchi, no expiratory wheezes, no chest wall tenderness, no intercostal retractions. Heart: First heart sound is normal, second heart sounds normal there is systolic ejection murmur 2/6 located in the left sternal border. Abdomen: Soft, nontender, nondistended, positive bowel sounds, there is no hepatosplenomegaly Extremities: There is +2 edema no calf tenderness DP +2 bilaterally, there is right lower extremity cellulitis with small venous ulcer and no drainage Neurologic examination: Patient is awake alert and oriented X 3, cranial nerves II-12 appear grossly intact, muscle power were 5 out of 5 in upper extremities and 5 out of 5 in bilateral lower extremities, deep tendon reflexes normal bilaterally. ASSESSMENT AND PLAN: 1. Cellulitis with Sepsis. Blood cultures reveal no growth at 48 hours. Wound culture is MSSA. IV vancomycin and cefepime will be discontinued and patient started on Kefzol. Continue local wound care with SSD 1 % cream apply to the right lower extremity with PRINCESS wrap and keep leg elevated. Continue to monitor wound culture 2. CAD post-PCI of the LCx. Continue patient on aspirin 81 mg once every day, carvedilol 12.5 mg orally twice every day, atorvastatin 80 mg once every day, Zetia 10 mg orally once every day. 3. Hypertension and hypertensive cardiovascular disease. Continue Valsartan 160 mg po bid, Coreg 12.5 mg po bid, Amlodipine 10 mg po daily and we will continue to monitor BP very closely 4. Hyperlipidemia. Continue patient on atorvastatin 80 mg orally once every day, continue Zetia 10 mg orally once every day. 5. Diabetes mellitus type 2. Continue patient on Levemir 50 units bid, continue sliding scale insulin, continue metformin 1000 mg orally twice every day, continue with Farxiga 10 mg po daily along with trulicity 4.5 mg Sc q week, BGM AC Meals and HS 6. Paroxysmal atrial fibrillation. Continue patient on Eliquis 5 mg orally twice every day, amiodarone 100 mg orally Thursday and Thursday, we will continue with Coreg 12.5 mg po bid 7. Vitamin D deficiency. Continue vitamin D supplement. 8. Chronic systolic heart failure.decrease IVF to 65 ml per hour and we will continue with Coreg 12.5 mg po bid, Spironolactone 25 mg po daily, Valsartan 160 mg po bid along with farxiga 10 mg po daily 9. Obstructive sleep apnea. Continue patient on CPAP. 10. Chronic venous stasis with stasis dermatitis and recurrent cellulitis of the right lower extremity. Continue treatment as in paragraph #1. 11. DVT prophylaxis. Continue patient on Eliquis 5 mg orally twice every day. 12. GI prophylaxis. Continue patient on Pepcid 20 mg orally once every day. 13. Consult PT. 14. Full code. Impression and plan of care have been directed as dictated by the signing physician. Lakeisha Lu nurse practitioner acting as scribe for signing physi al. Objective - Vital Signs Vital signs: Vital Signs Temp 98.5 F 06/05/23 07:13 Pulse 70 06/05/23 07:13 Resp 18 06/05/23 07:13 BP 149/88 06/05/23 10:21 Pulse Ox 94 L 06/05/23 07:13 FiO2 Intake & Output 06/04/23 06/05/23 06/05/23 18:59 06:59 18:59 Intake Total 400 500 Balance 400 500 Intake: Intake, IV Titration 500 Amount Vancomycin 2,000 mg In 500 Sodium Chloride 0.9% 500 ml 500 ml @ 167 mls/hr IVPB Q12H COUNT INCLUDES THE [facility] Rx#: [id number] Oral 400 Other: Voiding Method Toilet # Voids 800 - Labs CBC & Chem 7: 06/04/23 05:40 06/05/23 11:27 Labs: Abnormal Lab Results - Last 24 Hours (Table) 06/04/23 06/04/23 Range/Units 17:00 20:14 POC Glucose (mg/dL) 134 H 148 H (70-110) mg/dL Microbiology - Last 24 Hours (Table) 06/02/23 17:45 Blood Culture - Preliminary Blood 06/02/23 18:00 Blood Culture - Preliminary Blood 06/02/23 19:54 Gram Stain - Final Leg - Right Wound Culture - Final Staphylococcus aureus
[2023-06-05 16:41] LABS: Glucose,Whole Blood 149 mg/dL (70-110)
[2023-06-05 20:50] LABS: Glucose,Whole Blood 167 mg/dL (70-110)
[2023-06-06 05:51] LABS: Glucose,Whole Blood 113 mg/dL (70-110)
[2023-06-06] MEDS: INSULIN ASPART (NovoLOG) 100 UNIT/ML VIAL SQ SCH ×4 (06:36→21:07)
[2023-06-06] MEDS: INSULIN DETEMIR (LEVEMIR) 100 UNIT/ML SYR SQ SCH ×2 (07:34→21:07)
[2023-06-06] MEDS: ACETAMINOPHEN TAB 325 MG TAB PO PRN (07:59)
[2023-06-06] MEDS: metFORMIN 500 MG TAB PO SCH ×2 (07:59→21:08)
[2023-06-06] MEDS: APIXABAN 5 MG TAB PO SCH ×2 (07:59→21:08)
[2023-06-06] MEDS: carvediloL 12.5 MG TAB PO SCH ×2 (07:59→21:08)
[2023-06-06] MEDS: ASCORBIC ACID 500 MG TAB PO SCH (07:59)
[2023-06-06] MEDS: ATORVASTATIN 80 MG TAB PO SCH (07:59)
[2023-06-06] MEDS: EZETIMIBE 10 MG TAB PO SCH (07:59)
[2023-06-06] MEDS: ASPIRIN 81 MG PO SCH (07:59)
[2023-06-06] MEDS: VALSARTAN 160 MG TAB PO SCH ×2 (08:00→21:08)
[2023-06-06] MEDS: CHOLECALCIFEROL 25 MCG (1000 IU) TABLET PO SCH (08:00)
[2023-06-06] MEDS: DAPAGLIFLOZIN PROPANEDIOL 10 MG TABLET PO SCH (08:00)
[2023-06-06] MEDS: SPIRONOLACTONE 25 MG TAB PO SCH (08:00)
[2023-06-06 09:34] LABS: HCT 42.7 % (39.6-50.0); HGB 13.7 g/dL (13.0-17.0); MCHC 32.1 g/dL (32.0-37.0); MCV 90.5 FL (80.0-97.0); Mean Platelet Volume 9.9 FL (9.5-12.2); NRBC Per 100 WBC 0 X 10*3/uL (0.00-0.01); Platelet Count 246 X 10*3/uL (140-440); RBC 4.72 X 10*6/uL (4.40-5.60); RDW 15.1 % (11.5-14.5); WBC 14.47 X 10*3/uL (4.50-10.00)
[2023-06-06 09:50] LABS: ALT 20 U/L (10-49); AST 17 U/L (14-35); Albumin 3.6 g/dL (3.8-4.9); Albumin/Globulin Ratio 1.64 Ratio (1.60-3.17); Alkaline Phosphatase 79 U/L (41-126); BUN/Creat Ratio 19.89 Ratio (12.00-20.00); Blood Urea Nitrogen 17.9 mg/dL (9.0-27.0); Calcium 8.7 mg/dL (8.7-10.3); Carbon Dioxide 19.8 mmol/L (21.6-31.8); Chloride 105 mmol/L (96-109); Globulin 2.2 g/dL (1.6-3.3); Glucose 108 mg/dL (70-110); Potassium 4.6 mmol/L (3.5-5.5); Sodium 139 mmol/L (135-145); Total Bilirubin 0.5 mg/dL (0.3-1.2); Total Protein 5.8 g/dL (6.2-8.2)
[2023-06-06 11:28] LABS: Glucose,Whole Blood 132 mg/dL (70-110)
--- NOTE | 2023-06-06 15:23 | P.PN ---
Subjective Progress Note Date: 06/06/23 HISTORY OF PRESENT ILLNESS: This is a 68-year-old male with a previous medical history significant for hy pertension and hypertensive cardiovascular disease, diabetes mellitus type 2 with hyperglycemia, paroxysmal atrial fibrillation, coronary artery disease status post PCI of the LCx back on 04/02/2020, vitamin D deficiency, ischemic cardiomyopathy, with a chronic systolic heart failure obstructive sleep apnea with obesity hypoventilation syndrome, patient presented to the emergency department with fever at home up to 103 and increased redness and swelling of the right lower extremity his lactic acid came back negative and he did have leukocytosis so he was started on IV Vancomycin and Cefepime after obtaining blood cultures and was admitted to the hospital for treatmnet he did receive IVF at 130 ml per hours ad now will decrease to 75 ml/h, he is doing better and his temperature is down. 06/04: Patient is seen today on the [facility] floor. Patient has been started on IV antibiotics the form of cefepime and vancomycin and local wound care with Silvadene wraps. Wound culture is presumptive staph aureus. Blood pressure 134/47, heart rate in the 70s, patient has been afebrile. Pulse ox 97% on room air. Repeat blood work reveals WBC 15.5, hemoglobin 13.2, platelet count 201. Sodium 137, potassium 4, chloride 108, CO2 20, BUN 18 creatinine 0.87. Blood sugars have been running between 65 and 157. 06/05: Patient has been afebrile, heart rate 70, blood pressure 149/88, pulse ox 94% on room air. Patient is utilizing CPAP at night. Creatinine 0.86. Patient has been on cefepime and vancomycin. Wound culture is positive for MSSA and antibiotics will be transitioned to 2 G IV Piggyback Every 8 Hours. Blood Culture No Growth at 48 Hours 2 06/06: Patient states that his breathing is about the same from yesterday. Patient does have some redness to the lower extremity is without warmth is improved. He is utilizing his CPAP at night and on room air during the day. Blood pressure 148/80, heart rate 71, afebrile. Repeat blood work reveals WBC is improving at 14.4, hemoglobin 13.7 and platelet count 246. Sodium 139, potassium 4.6, chloride 105, CO2 19, BUN 17 creatinine 0.9. Labile blood glucose running between 100 1367. Discussed plan in detail with the patient. He is agreeable to stay in the hospital and continue IV antibiotics for 1 more day and we anticipate discharge home tomorrow. REVIEW OF SYSTEMS: Constitutional: Positive for fever, no chills, no night sweats. No weight change. Positive for weakness, positive for fatigue no lethargy. No daytime sl eepiness. HEENT: No headache. No blurred vision or double vision, no loss of vision. No loss of Hearing, no ringing in the ears, no dizziness. No nasal drainage or congestion. No epistaxis. No sore throat. Lungs: No shortness of breath, no cough, no sputum production. No wheezing. Reports dyspnea with activity. Cardiovascular: No chest pain, positive for lower extremity edema. No palpitati ons. No paroxysmal nocturnal dyspnea. No orthopnea. No lightheadedness or dizziness. No syncopal episodes. Abdominal: Reports no abdominal pain. No nausea, vomiting. No diarrhea. No constipation. No bloody or tarry stools reports loss of appetite. Genitourinary: No dysuria, increased frequency, urgency. No urinary retention. Musculoskeletal: No myalgias. No muscle weakness, no gait dysfunction, no frequent falls. Positive for back pain. No neck pain. Integumentary: right lower extremity wound with cellulitis and increased erythema of the right lower extremity with venous ulcer . No change in hair or nails. Neurologic: No aphasia. No facial droop. No change in mentation. No head injury. No headache. No paralysis. No paresthesia. Psychiatric: No depression. No anxiety. No mood swings. Endocrine: abnormal blood sugar, morbidly obese. PHYSICAL EXAMINATION: General: 68-year-old male laying down in bed in no apparent distress. HEENT: Head is atraumatic, normocephalic, pupils were equal round reactive to light and recommendation, extraocular muscle movement were intact, sclera nonicteric, conjunctivae were pale, mucous membranes of the mouth are somewhat dry. Neck: Supple, no JVP, normal carotid upstroke bilaterally, no lymphadenopathy. Chest: Decreased breath sounds at the bases, few rhonchi, no expiratory wheezes, no chest wall tenderness, no intercostal retractions. Heart: First heart sound is normal, second heart sounds normal there is systolic ejection murmur 2/6 located in the left sternal border. Abdomen: Soft, nontender, nondistended, positive bowel sounds, there is no hepatosplenomegaly Extremities: There is +1 edema no calf tenderness DP +2 bilaterally, there is right lower extremity cellulitis with small venous ulcer and no drainage Neurologic examination: Patient is awake alert and oriented X 3, cranial nerves II-12 appear grossly intact, muscle power were 5 out of 5 in upper extremities and 5 out of 5 in bilateral lower extremities, deep tendon reflexes normal bilaterally. ASSESSMENT AND PLAN: 1. Cellulitis with Sepsis. Blood cultures reveal no growth at 48 hours. Wound culture is MSSA. Continue patient on IV Kefzol. Continue local wound care with SSD 1 % cream apply to the right lower extremity with PRINCESS wrap and keep leg el evated. Continue to monitor wound culture 2. CAD post-PCI of the LCx. Continue patient on aspirin 81 mg once every day, carvedilol 12.5 mg orally twice every day, atorvastatin 80 mg once every day, Zetia 10 mg orally once every day. 3. Hypertension and hypertensive cardiovascular disease. Continue Valsartan 160 mg po bid, Coreg 12.5 mg po bid, Amlodipine 10 mg po daily and we will continue to monitor BP very closely 4. Hyperlipidemia. Continue patient on atorvastatin 80 mg orally once every day, continue Zetia 10 mg orally once every day. 5. Diabetes mellitus type 2. Continue patient on Levemir 50 units bid, continue sliding scale insulin, continue metformin 1000 mg orally twice every day, continue with Farxiga 10 mg po daily along with trulicity 4.5 mg Sc q week, BGM AC Meals and HS 6. Paroxysmal atrial fibrillation. Continue patient on Eliquis 5 mg orally twice every day, amiodarone 100 mg orally Thursday and Thursday, we will continue with Coreg 12.5 mg po bid 7. Vitamin D deficiency. Continue vitamin D supplement. 8. Chronic systolic heart failure.decrease IVF to 65 ml per hour and we will continue with Coreg 12.5 mg po bid, Spironolactone 25 mg po daily, Valsartan 160 mg po bid along with farxiga 10 mg po daily 9. Obstructive sleep apnea. Continue patient on CPAP. 10. Chronic venous stasis with stasis dermatitis and recurrent cellulitis of the right lower extremity. Continue treatment as in paragraph #1. 11. DVT prophylaxis. Continue patient on Eliquis 5 mg orally twice every day. 12. GI prophylaxis. Continue patient on Pepcid 20 mg orally once every day. 13. Consult PT. 14. Full code. Impression and plan of care have been directed as dictated by the signing physician. Lakeisha Lu nurse practitioner acting as scribe for signing physician. Objective - Vital Signs Vital signs: Vital Signs Temp 97.7 F 06/06/23 07:50 Pulse 71 06/06/23 07:50 Resp 16 06/06/23 07:50 BP 148/80 06/06/23 07:50 Pulse Ox 94 L 06/06/23 07:50 FiO2 Intake & Output 06/05/23 06/06/23 06/06/23 18:59 06:59 18:59 Other: # Voids 3 1 - Labs CBC & Chem 7: 06/06/23 03:55 06/06/23 03:55 Labs: Abnormal Lab Results - Last 24 Hours (Table) 06/05/23 06/05/23 06/06/23 Range/Units 16:39 20:49 03:55 WBC 14.47 H (4.50-10.00) X 10*3/uL RDW 15.1 H (11.5-14.5) % POC Glucose (mg/dL) 149 H 167 H (70-110) mg/dL 06/06/23 Range/Units 05:50 WBC (4.50-10.00) X 10*3/uL RDW (11.5-14.5) % POC Glucose (mg/dL) 113 H (70-110) mg/dL Microbiology - Last 24 Hours (Table) 06/02/23 17:45 Blood Culture - Preliminary Blood 06/02/23 18:00 Blood Culture - Preliminary Blood
[2023-06-06] MEDS: SODIUM CHLORIDE 0.9% 1,000 ML IV SCH ×2 (16:13→23:37)
[2023-06-06 16:33] LABS: Glucose,Whole Blood 126 mg/dL (70-110)
[2023-06-06 20:30] LABS: Glucose,Whole Blood 142 mg/dL (70-110)
[2023-06-07 05:56] LABS: Glucose,Whole Blood 96 mg/dL (70-110)
[2023-06-07 05:58] LABS: HCT 44.7 % (39.0-53.0); HGB 14.8 gm/dL (13.0-17.5); MCH 30.1 pg (25.0-35.0); MCHC 33.1 g/dL (31.0-37.0); MCV 90.7 fL (80.0-100.0); Mean Platelet Volume 7.4; Platelet Count 270 k/uL (150-450); RBC 4.93 m/uL (4.30-5.90); RDW 14.4 % (11.5-15.5); WBC 13.8 k/uL (3.8-10.6)
[2023-06-07] MEDS: INSULIN ASPART (NovoLOG) 100 UNIT/ML VIAL SQ SCH ×2 (05:58→12:07)
[2023-06-07 06:12] LABS: ALT 19 U/L (4-49); AST 20 U/L (17-59); African American GFR (CKD) >90 (>60 ml/min/1.73 sqM); Albumin 3.7 g/dL (3.5-5.0); Albumin/Globulin Ratio 1.4; Alkaline Phosphatase 75 U/L (38-126); Anion Gap 12 mmol/L; Blood Urea Nitrogen 19 mg/dL (9-20); Calcium 8.7 mg/dL (8.4-10.2); Carbon Dioxide 22 mmol/L (22-30); Chloride 103 mmol/L (98-107); Globulin 2.7 g/dL; Glucose 76 mg/dL (74-99); Non-African American GFR(CKD) 87 (>60 ml/min/1.73 sqM); Potassium 4.2 mmol/L (3.5-5.1); Sodium 137 mmol/L (137-145); Total Bilirubin 0.8 mg/dL (0.2-1.3); Total Protein 6.4 g/dL (6.3-8.2)
[2023-06-07] MEDS: INSULIN DETEMIR (LEVEMIR) 100 UNIT/ML SYR SQ SCH (06:37)
[2023-06-07] MEDS: ASPIRIN 81 MG PO SCH (07:58)
[2023-06-07] MEDS: CHOLECALCIFEROL 25 MCG (1000 IU) TABLET PO SCH (07:58)
[2023-06-07] MEDS: carvediloL 12.5 MG TAB PO SCH (07:58)
[2023-06-07] MEDS: metFORMIN 500 MG TAB PO SCH (07:58)
[2023-06-07] MEDS: APIXABAN 5 MG TAB PO SCH (07:58)
[2023-06-07] MEDS: ASCORBIC ACID 500 MG TAB PO SCH (07:58)
[2023-06-07] MEDS: DAPAGLIFLOZIN PROPANEDIOL 10 MG TABLET PO SCH (07:59)
[2023-06-07] MEDS: EZETIMIBE 10 MG TAB PO SCH (07:59)
[2023-06-07] MEDS: ATORVASTATIN 80 MG TAB PO SCH (07:59)
[2023-06-07] MEDS: VALSARTAN 160 MG TAB PO SCH (07:59)
[2023-06-07] MEDS: SPIRONOLACTONE 25 MG TAB PO SCH (07:59)
[2023-06-07] MEDS ORDERED: NON FORMULARY DRUG (Dulaglutide [Trulicity] 4.5 MG/0.5 ML Each) SQ SCH (09:00)
[2023-06-07 09:03] VITALS: BP 150/75; PULSE 66; RESP 17; TEMP 97.9
--- NOTE | 2023-06-07 11:49 | P.DS ---
Providers Date of admission: 06/02/23 21:51 Expected date of discharge: 06/07/23 Attending physician: Alana Mariano Primary care physician: Alana Mariano Hospital Course: HISTORY OF PRESENT ILLNESS: This is a 68-year-old male with a previous medical history significant for hypertension and hypertensive cardiovascular disease, diabetes mellitus type 2 with hyperglycemia, paroxysmal atrial fibrillation, coronary artery disease status post PCI of the LCx back on 04/02/2020, vitamin D deficiency, ischemic cardiomyopathy, with a chronic systolic heart failure obstructive sleep apnea with obesity hypoventilation syndrome, patient presented to the emergency department with fever at home up to 103 and increased redness and swelling of the right lower extremity his lactic acid came back negative and he did have leukocytosis so he was started on IV Vancomycin and Cefepime after obtaining blood cultures and was admitted to the hospital for treatmnet he did receive IVF at 130 ml per hours ad now will decrease to 75 ml/h, he is doing better and his temperature is down. 06/04: Patient is seen today on the Med[facility] floor. Patient has been started on IV antibiotics the form of cefepime and vancomycin and local wound care with Silvadene wraps. Wound culture is presumptive staph aureus. Blood pressure 134/47, heart rate in the 70s, patient has been afebrile. Pulse ox 97% on room air. Repeat blood work reveals WBC 15.5, hemoglobin 13.2, platelet count 201. Sodium 137, potassium 4, chloride 108, CO2 20, BUN 18 creatinine 0.87. Blood sugars have been running between 65 and 157. 06/05: Patient has been afebrile, heart rate 70, blood pressure 149/88, pulse ox 94% on room air. Patient is utilizing CPAP at night. Creatinine 0.86. Patient has been on cefepime and vancomycin. Wound culture is positive for MSSA and antibiotics will be transitioned to 2 G IV Piggyback Every 8 Hours. Blood Culture No Growth at 48 Hours 2 06/06: Patient states that his breathing is about the same from yesterday. Patient does have some redness to the lower extremity is without warmth is improved. He is utilizing his CPAP at night and on room air during the day. Blood pressure 148/80, heart rate 71, afebrile. Repeat blood work reveals WBC is improving at 14.4, hemoglobin 13.7 and platelet count 246. Sodium 139, potassium 4.6, chloride 105, CO2 19, BUN 17 creatinine 0.9. Labile blood glucose running between 100 1367. Discussed plan in detail with the patient. He is agreeable to stay in the hospital and continue IV antibiotics for 1 more day and we anticipate discharge home tomorrow. 06/07: Patient is been a lab error today, he denies any chest pain, no shortness breath, his leg looks a lot better, we'll continue the Silvadene cream, we will discontinue IV antibiotic, patient's culture showing Staphylococcus aureus that is pansensitive told antibiotic, currently he is on cefazolin we will switch the patient to cephalexin 500 mg orally 2 times every day for 10 days and follow-up with me as an outpatient. Discharge Diagnses: 1. MSSA cellulitis of the right lower extremity was sepsis 2. CAD post-PCI of the LCx. 3. Hypertension and hypertensive cardiovascular disease. 4. Hyperlipidemia. 5. Diabetes mellitus type 2. 6. Paroxysmal atrial fibrillation. 7. Vitamin D deficiency. 8. Chronic systolic heart failure. 9. Obstructive sleep apnea. 10. Chronic venous stasis with stasis dermatitis and recurrent cellulitis of the right lower extremity. Patient Condition at Discharge: Stable Plan - Discharge Summary Discharge Rx Participant: No New Discharge Prescriptions: No Action metFORMIN HCL [Glucophage] 1,000 mg PO BID Apixaban [Eliquis] 5 mg PO BID #60 tab Aspirin EC [Ecotrin Low Dose] 81 mg PO DAILY Ascorbic Acid [Vitamin C] 1,000 mg PO DAILY Atorvastatin [Lipitor] 80 mg PO DAILY Empagliflozin [Jardiance] 25 mg PO DAILY Dulaglutide [Trulicity] 4.5 mg SQ MARCOS carvediloL [Coreg] 12.5 mg PO BID Valsartan [Diovan] 160 mg PO BID Cholecalciferol [Vitamin D3 (25 Mcg = 1000 Iu)] 50 mcg PO DAILY Ezetimibe [Zetia] 10 mg PO DAILY Insulin Glargine [Lantus Vial] 50 unit SQ BID Amiodarone [Cordarone] 100 mg PO MOWEFR Spironolactone [Aldactone] 25 mg PO DAILY Discharge Medication List metFORMIN HCL [Glucophage] 1,000 mg PO BID 10/18/16 [History] Apixaban [Eliquis] 5 mg PO BID #60 tab 10/24/16 [Rx] Aspirin EC [Ecotrin Low Dose] 81 mg PO DAILY 02/26/17 [History] Ascorbic Acid [Vitamin C] 1,000 mg PO DAILY 07/17/21 [History] Atorvastatin [Lipitor] 80 mg PO DAILY 07/17/21 [History] Cholecalciferol [Vitamin D3 (25 Mcg = 1000 Iu)] 50 mcg PO DAILY 07/17/21 [History] Ezetimibe [Zetia] 10 mg PO DAILY 07/17/21 [History] Insulin Glargine [Lantus Vial] 50 unit SQ BID 07/17/21 [History] Empagliflozin [Jardiance] 25 mg PO DAILY 09/08/21 [History] Amiodarone [Cordarone] 100 mg PO MOWEFR 08/26/22 [History] Dulaglutide [Trulicity] 4.5 mg SQ MARCOS 06/02/23 [History] Spironolactone [Aldactone] 25 mg PO DAILY 06/02/23 [History] Valsartan [Diovan] 160 mg PO BID 06/02/23 [History] carvediloL [Coreg] 12.5 mg PO BID 06/02/23 [History] Follow up Appointment(s)/Referral(s): None,Stated [REFERRING] - 1-2 days
[2023-06-07 12:02] LABS: Glucose,Whole Blood 124 mg/dL (70-110)
== END 2023-06-07 12:54 | disposition home or self-care (01) | DRG 872 ==
LOC: EC 14:22 → 4SSUR 21:51
PROVIDERS: ADMIT Internal Medicine; ATTEND Internal Medicine
DX: A41.01 Sepsis due to Methicillin susceptible Staphylococcus aureus (principal); E66.2 Morbid (severe) obesity with alveolar hypoventilation; Z68.41 Body mass index [BMI] 40.0-44.9, adult; I50.22 Chronic systolic (congestive) heart failure; L03.115 Cellulitis of right lower limb; E11.51 Type 2 diabetes mellitus with diabetic peripheral angiopathy without gangrene; E55.9 Vitamin D deficiency, unspecified; E78.5 Hyperlipidemia, unspecified; Z87.891 Personal history of nicotine dependence; I11.0 Hypertensive heart disease with heart failure; I25.10 Atherosclerotic heart disease of native coronary artery without angina pectoris; J44.9 Chronic obstructive pulmonary disease, unspecified; I25.5 Ischemic cardiomyopathy; I48.0 Paroxysmal atrial fibrillation; I87.2 Venous insufficiency (chronic) (peripheral); I87.8 Other specified disorders of veins; M19.90 Unspecified osteoarthritis, unspecified site; Z79.01 Long term (current) use of anticoagulants; Z79.4 Long term (current) use of insulin; Z79.82 Long term (current) use of aspirin; Z79.84 Long term (current) use of oral hypoglycemic drugs; Z79.899 Other long term (current) drug therapy; Z82.49 Family history of ischemic heart disease and other diseases of the circulatory system; Z98.61 Coronary angioplasty status
CPT/HCPCS: 36415; 80053; 82565; 83036; 83605; 83880; 85025; 85027; 85652; 86140; 87040; 87070; 87077; 87186; 87205; 93005; 96365; 96366; 96368; 99285

== ENCOUNTER → 2023-10-05 | Outpatient (CLI) | payer MEDICARE ==
[2023-10-05 17:28] LABS: ALT 25 U/L (10-49); AST 15 U/L (14-35); Albumin 4.1 g/dL (3.8-4.9); Albumin/Globulin Ratio 1.95 Ratio (1.60-3.17); Alkaline Phosphatase 84 U/L (41-126); Blood Urea Nitrogen 20.4 mg/dL (9.0-27.0); Calcium 8.9 mg/dL (8.7-10.3); Carbon Dioxide 24.8 mmol/L (21.6-31.8); Chloride 107 mmol/L (96-109); Chol/HDL Ratio 2.95 Ratio; Globulin 2.1 g/dL (1.6-3.3); Glucose 110 mg/dL (70-110); LDL Cholesterol,Calculated 57.3 mg/dL (0.0-131.0); Magnesium 1.9 mg/dL (1.5-2.4); Potassium 4.7 mmol/L (3.5-5.5); Sodium 143 mmol/L (135-145); Total Bilirubin 0.4 mg/dL (0.3-1.2); Total Protein 6.2 g/dL (6.2-8.2)
[2023-10-05 17:38] LABS: Basophils # (A) 0.08 X 10*3/uL (0.00-0.10); Basophils % (A) 0.7 %; Eosinophils # (A) 0.31 X 10*3/uL (0.04-0.35); Eosinophils % (A) 2.9 %; HCT 48.8 % (39.6-50.0); HGB 15.5 g/dL (13.0-17.0); Lymphocytes # (A) 2.83 X 10*3/uL (0.90-5.00); Lymphocytes % (A) 26.5 %; MCH 29.9 pg (27.0-32.0); MCHC 31.8 g/dL (32.0-37.0); MCV 94.2 FL (80.0-97.0); Mean Platelet Volume 10.1 FL (9.5-12.2); Monocytes # (A) 0.72 X 10*3/uL (0.20-1.00); Monocytes % (A) 6.7 %; NRBC Per 100 WBC 0 X 10*3/uL (0.00-0.01); Neutrophils # (A) 6.69 X 10*3/uL (1.80-7.70); Neutrophils % (A) 62.6 %; Platelet Count 232 X 10*3/uL (140-440); RBC 5.18 X 10*6/uL (4.40-5.60); RDW 15.1 % (11.5-14.5); WBC 10.69 X 10*3/uL (4.50-10.00)
== END | disposition home or self-care (01) ==
LOC: LABWHC1 10:09
PROVIDERS: ATTEND Nurse Practitioner Adult Health
DX: I10 Essential (primary) hypertension (principal); I25.10 Atherosclerotic heart disease of native coronary artery without angina pectoris; I48.0 Paroxysmal atrial fibrillation; E78.5 Hyperlipidemia, unspecified
CPT/HCPCS: 36415; 80053; 80061; 83735; 84443; 85025

== ENCOUNTER → 2023-11-24 | Outpatient (CLI) | payer MEDICARE ==
[2023-11-24 15:41] LABS: HCT 49.3 % (39.6-50.0); HGB 15.7 g/dL (13.0-17.0); MCH 29.8 pg (27.0-32.0); MCHC 31.8 g/dL (32.0-37.0); MCV 93.5 FL (80.0-97.0); Mean Platelet Volume 9.4 FL (9.5-12.2); NRBC Per 100 WBC 0 X 10*3/uL (0.00-0.01); Platelet Count 270 X 10*3/uL (140-440); RBC 5.27 X 10*6/uL (4.40-5.60); RDW 14.9 % (11.5-14.5); WBC 11.91 X 10*3/uL (4.50-10.00)
[2023-11-24 15:56] LABS: Blood Urea Nitrogen 20.9 mg/dL (9.0-27.0); Carbon Dioxide 21.8 mmol/L (21.6-31.8); Chloride 108 mmol/L (96-109); Potassium 4.6 mmol/L (3.5-5.5); Sodium 144 mmol/L (135-145)
== END | disposition home or self-care (01) ==
LOC: LABPAT 09:54
PROVIDERS: ATTEND Internal Medicine Clinical Cardiac Electrophysiology
DX: Z01.812 Encounter for preprocedural laboratory examination (principal); I48.0 Paroxysmal atrial fibrillation; I49.5 Sick sinus syndrome
CPT/HCPCS: 36415; 80051; 82565; 84520; 85027

== ENCOUNTER 2023-12-15 13:01 | Emergency (ER) | payer MEDICARE ==
[2023-12-15 13:06] LABS: Glucose,Whole Blood 61 mg/dL (70-110)
[2023-12-15 13:10] VITALS: RESP 18
--- NOTE | 2023-12-15 13:39 | ED ---
General Adult HPI - General Chief complaint: Neuro Symptoms/Deficit Stated complaint: Dizziness, confusion Time Seen by Provider: 12/15/23 13:04 Source: patient, family, RN notes reviewed Mode of arrival: ambulatory Limitations: no limitations - History of Present Illness Initial comments: Patient is a 68-year-old male present to the emergency department with dizziness. Patient felt a spinning type sensation. Patient may have had an episode yesterday. Patient was also sweaty earlier today. Patient was walking around and thought his blood sugar was low. Patient did eat some candy bars. Following this blood sugar 61. Patient also has leg wounds. - Related Data Home Medications Medication Instructions Recorded Confirmed metFORMIN HCL [Glucophage] 1,000 mg PO BID 10/18/16 11/26/23 Aspirin EC [Ecotrin Low Dose] 81 mg PO DAILY 02/26/17 11/26/23 Ascorbic Acid [Vitamin C] 1,000 mg PO DAILY 07/17/21 11/26/23 Atorvastatin [Lipitor] 80 mg PO DAILY 07/17/21 11/26/23 Cholecalciferol [Vitamin D3 (25 50 mcg PO DAILY 07/17/21 11/26/23 Mcg = 1000 Iu)] Ezetimibe [Zetia] 10 mg PO DAILY 07/17/21 11/26/23 Insulin Glargine [Lantus Vial] 50 - 60 unit SQ BID 07/17/21 11/26/23 Empagliflozin [Jardiance] 25 mg PO DAILY 09/08/21 11/26/23 Amiodarone [Cordarone] 100 mg PO MOWEFR 08/26/22 11/26/23 Dulaglutide [Trulicity] 4.5 mg SQ MARCOS 06/02/23 11/24/23 Spironolactone [Aldactone] 25 mg PO DAILY 06/02/23 11/26/23 Valsartan [Diovan] 160 mg PO BID 06/02/23 11/26/23 carvediloL [Coreg] 12.5 mg PO BID 06/02/23 11/26/23 Furosemide [Lasix] 40 mg PO BID 11/24/23 11/26/23 Loratadine [Claritin] 10 mg PO DAILY 11/24/23 11/24/23 Previous Rx's Medication Instructions Recorded Apixaban [Eliquis] 5 mg PO BID #60 tab 10/24/16 Allergies Allergy/AdvReac Type Severity Reaction Status Date / Time No Known Allergies Allergy Verified 11/24/23 08:23 Review of Systems ROS Statement: Those systems with pertinent positive or pertinent negative responses have been documented in the HPI. ROS Other: All systems not noted in ROS Statement are negative. Constitutional: Denies: fever Eyes: Denies: eye pain ENT: Denies: ear pain Cardiovascular: Denies: chest pain Endocrine: Reports: fatigue Neurological: Reports: as per HPI, vertigo Past Medical History Past Medical History: Atrial Fibrillation, Heart Failure, COPD, Diabetes Mellitus, Hyperlipidemia, Hypertension, Osteoarthritis (OA), Sleep Apnea/CPAP/BIPAP Additional Past Medical History / Comment(s): edema and discoloration to RLE since 2002 per pt, See Dr House H&P for cardiac history. wears cpap. SOB History of Any Multi-Drug Resistant Organisms: None Reported Past Surgical History: Appendectomy, Cardiac Ablation, Heart Catheterization, Heart Catheterization With Stent, Tonsillectomy Additional Past Surgical History / Comment(s): "Heart cath done for ablation" Past Anesthesia/Blood Transfusion Reactions: No Reported Reaction Additional Past Anesthesia/Blood Transfusion Reaction / Comment(s): grumpy after surgery Date of Last Stent Placement:: 2019 Past Psychological History: No Psychological Hx Reported Smoking Status: Former smoker Past Alcohol Use History: None Reported Past Drug Use History: None Reported - Past Family History Mother Family Medical History: Blood Disorder Father Family Medical History: Myocardial Infarction ([place]) General Exam Limitations: no limitations General appearance: alert, in no apparent distress Head exam: Present: normocephalic Eye exam: Present: normal appearance, PERRL, EOMI Neck exam: Present: normal inspection Respiratory exam: Present: normal lung sounds bilaterally Cardiovascular Exam: Present: regular rate, normal rhythm GI/Abdominal exam: Present: soft. Absent: tenderness Extremities exam: Present: pedal edema Neurological exam: Present: alert, oriented X3, CN II-XII intact. Absent: motor sensory deficit Psychiatric exam: Present: normal affect, normal mood Skin exam: Present: normal color, other (Reported leg wound right lower leg is minimal and appears to be healing well) Course Vital Signs 12/15/23 13:02 Temperature 97.6 F Pulse Rate 69 Respiratory 18 Rate Blood Pressure 159/83 O2 Sat by Pulse 96 Oximetry EKG Findings - EKG Results: EKG: interpreted by CHELLED (Left axis.), sinus rhythm (AV block with a IA 255. First-degree), normal QRS, normal ST/T Medical Decision Making - Medical Decision Making Was pt. sent in by a medical professional or institution (HECTOR Pineda, SENIOR OPERATIONS ANALYST, urgent care, hospital, or [place] health care facility...) When possible be specific @ -No Did you speak to anyone other than the patient for history (EMS, parent, family, police, friend...)? What history was obtained from this source @ - is present and helps provide history including patient's symptoms Did you review nursing and triage notes (agree or disagree)? Why? @ -I reviewed and agree with nursing and triage notes Were old charts reviewed (outside hosp., previous admission, EMS record, old EKG, old radiological studies, urgent care reports/EKG's, [place] health care facility records)? Report findings @ -No old charts were reviewed Differential Diagnosis (chest pain, altered mental status, abdominal pain women, abdominal pain men, vaginal bleeding, weakness, fever, dyspnea, syncope, headache, dizziness, GI bleed, back pain, seizure, CVA, palpatations, mental health, musculoskeletal)? @ -Differential Dizziness: Benign paroxysmal positional Vertigo, Menieres disease, otitis media, acoustic neuroma, vertebrobasilar insufficiency, cerebellar stroke, encephalitis, hypovolemic, arrhythmia, coronary artery syndrome, anemia, this is not meant to be an all-inclusive list EKG interpreted by me (3pts min.). @ -As above X-rays interpreted by me (1pt min.). @ -None done CT interpreted by me (1pt min.). @ -None done U/S interpreted by me (1pt. min.). @ -None done What testing was considered but not performed or refused? (CT, X-rays, U/S, labs)? Why? @ -None What meds were considered but not given or refused? Why? @ -None Did you discuss the management of the patient with other professionals (pro fessionals i.e. HECTOR Pineda, SENIOR OPERATIONS ANALYST, lab, RT, psych nurse, criminal justice social worker, trim machine adjuster, teacher, sewage reticulation drafting officer, rn field case manager)? Give summary @ -No Was smoking cessation discussed for >3mins.? @ -No Was critical care preformed (if so, how long)? @ -No Were there social determinants of health that impacted care today? How? (Homelessness, low income, unemployed, alcoholism, drug addiction, transportation, low edu. Level, literacy, decrease access to med. care, fpc, rehab)? @ -No Was there de-escalation of care discussed even if they declined (Discuss DNR or withdrawal of care, Hospice)? DNR status @ -No What co-morbidities impacted this encounter? (DM, HTN, Smoking, COPD, CAD, Cancer, CVA, ARF, Chemo, Hep., AIDS, mental health diagnosis, sleep apnea, morbid obesity)? @ -Diabetes Was patient admitted / discharged? Hospital course, mention meds given and route, prescriptions, significant lab abnormalities, going to OR and other pertinent info. @ -Patient reevaluated and feeling much better. Patient ambulated twice to and from the bathroom without any difficulty. Repeat blood sugar is 82. Patient will be given sandwich prior to discharge. Recommended decrease Lantus in the evening. Undiagnosed new problem with uncertain prognosis? @ -No Drug Therapy requiring intensive monitoring for toxicity (Heparin, Nitro, Insulin, Cardizem)? @ -No Were any procedures done? @ -No Diagnosis/symptom? @ -Dizziness, hypoglycemia Acute, or Chronic, or Acute on Chronic? @ -Acute, acute Uncomplicated (without systemic symptoms) or Complicated (systemic symptoms)? @ -Default Side effects of treatment? @ -No Exacerbation, Progression, or Severe Exacerbation? @ -No Poses a threat to life or bodily function? How? (Chest pain, [place], [place], pneumonia, PE, COPD, DKA, ARF, appy, cholecystitis, CVA, Diverticulitis, Homicidal, Suicidal, threat to staff... and all critical care pts) @ -No - Lab Data Result diagrams: 12/15/23 14:06 12/15/23 14:06 Lab Results 12/15/23 12/15/23 12/15/23 Range/Units 13:05 14:06 14:06 WBC 14.0 H (3.8-10.6) k/uL RBC 4.94 (4.30-5.90) m/uL Hgb 15.1 (13.0-17.5) gm/dL Hct 44.6 (39.0-53.0) % MCV 90.3 (80.0-100.0) fL MCH 30.6 (25.0-35.0) pg MCHC 33.8 (31.0-37.0) g/dL RDW 14.3 (11.5-15.5) % Plt Count 263 (150-450) k/uL MPV 7.3 Neutrophils % 74 % Lymphocytes % 15 % Monocytes % 6 % Eosinophils % 3 % Basophils % 1 % Neutrophils # 10.4 H (1.3-7.7) k/uL Lymphocytes # 2.0 (1.0-4.8) k/uL Monocytes # 0.8 (0-1.0) k/uL Eosinophils # 0.5 (0-0.7) k/uL Basophils # 0.1 (0-0.2) k/uL Sodium 138 (137-145) mmol/L Potassium 4.4 (3.5-5.1) mmol/L Chloride 106 (98-107) mmol/L Carbon Dioxide 25 (22-30) mmol/L Anion Gap 7 mmol/L BUN 19 (9-20) mg/dL Creatinine 0.74 (0.66-1.25) mg/dL Est GFR (CKD-EPI)AfAm >90 (>60 ml/min/1.73 sqM) Est GFR (CKD-EPI)NonAf >90 (>60 ml/min/1.73 sqM) Glucose 63 L (74-99) mg/dL POC Glucose (mg/dL) 61 L (70-110) mg/dL POC Glu Commercial Singer ID Belval, Rhiannon Calcium 9.1 (8.4-10.2) mg/dL Magnesium 1.7 (1.6-2.3) mg/dL Total Bilirubin 1.0 (0.2-1.3) mg/dL AST 26 (17-59) U/L ALT 20 (4-49) U/L Alkaline Phosphatase 70 (38-126) U/L Total Protein 6.5 (6.3-8.2) g/dL Albumin 4.0 (3.5-5.0) g/dL 12/15/23 Range/Units 14:45 WBC (3.8-10.6) k/uL RBC (4.30-5.90) m/uL Hgb (13.0-17.5) gm/dL Hct (39.0-53.0) % MCV (80.0-100.0) fL MCH (25.0-35.0) pg MCHC (31.0-37.0) g/dL RDW (11.5-15.5) % Plt Count (150-450) k/uL MPV Neutrophils % % Lymphocytes % % Monocytes % % Eosinophils % % Basophils % % Neutrophils # (1.3-7.7) k/uL Lymphocytes # (1.0-4.8) k/uL Monocytes # (0-1.0) k/uL Eosinophils # (0-0.7) k/uL Basophils # (0-0.2) k/uL Sodium (137-145) mmol/L Potassium (3.5-5.1) mmol/L Chloride (98-107) mmol/L Carbon Dioxide (22-30) mmol/L Anion Gap mmol/L BUN (9-20) mg/dL Creatinine (0.66-1.25) mg/dL Est GFR (CKD-EPI)AfAm (>60 ml/min/1.73 sqM) Est GFR (CKD-EPI)NonAf (>60 ml/min/1.73 sqM) Glucose (74-99) mg/dL POC Glucose (mg/dL) 82 (70-110) mg/dL POC Glu Commercial Singer ID Pascale Caruso Calcium (8.4-10.2) mg/dL Magnesium (1.6-2.3) mg/dL Total Bilirubin (0.2-1.3) mg/dL AST (17-59) U/L ALT (4-49) U/L Alkaline Phosphatase (38-126) U/L Total Protein (6.3-8.2) g/dL Albumin (3.5-5.0) g/dL Disposition Clinical Impression: Dizziness, Hypoglycemia Disposition: HOME SELF-CARE Condition: Stable Instructions (If sedation given, give patient instructions): Dizziness (ED), Hypoglycemia in a Person with Diabetes (ED) Additional Instructions: Decrease your Lantus tonight to 40. This until follow-up with your doctor. Please follow-up with your primary care physician in the next 1 or 2 days for recheck including blood sugar. Return for dizziness, low blood sugar, confusion or weakness, worsening symptoms or any other concerns. Is patient prescribed a controlled substance at d/c from ED?: No Referrals: Alana Mariano MD [Primary Care Provider] - 1-2 days Time of Disposition: 15:06
[2023-12-15 14:46] LABS: Glucose,Whole Blood 82 mg/dL (70-110)
[2023-12-15 14:53] LABS: African American GFR (CKD) >90 (>60 ml/min/1.73 sqM); Alkaline Phosphatase 70 U/L (38-126); Anion Gap 7 mmol/L; Blood Urea Nitrogen 19 mg/dL (9-20); Calcium 9.1 mg/dL (8.4-10.2); Carbon Dioxide 25 mmol/L (22-30); Chloride 106 mmol/L (98-107); Glucose 63 mg/dL (74-99); Non-African American GFR(CKD) >90 (>60 ml/min/1.73 sqM); Sodium 138 mmol/L (137-145); Total Protein 6.5 g/dL (6.3-8.2)
[2023-12-15 14:56] LABS: Basophils # (A) 0.1 k/uL (0-0.2); Basophils % (A) 1 %; Eosinophils # (A) 0.5 k/uL (0-0.7); Eosinophils % (A) 3 %; HCT 44.6 % (39.0-53.0); HGB 15.1 gm/dL (13.0-17.5); Lymphocytes % (A) 15 %; MCH 30.6 pg (25.0-35.0); MCHC 33.8 g/dL (31.0-37.0); MCV 90.3 fL (80.0-100.0); Mean Platelet Volume 7.3; Monocytes # (A) 0.8 k/uL (0-1.0); Monocytes % (A) 6 %; Neutrophils # (A) 10.4 k/uL (1.3-7.7); Neutrophils % (A) 74 %; Platelet Count 263 k/uL (150-450); RBC 4.94 m/uL (4.30-5.90); RDW 14.3 % (11.5-15.5)
[2023-12-15 14:57] LABS: ALT 20 U/L (4-49); AST 26 U/L (17-59); Magnesium 1.7 mg/dL (1.6-2.3); Potassium 4.4 mmol/L (3.5-5.1)
[2023-12-15 15:27] VITALS: BP 146/86; PULSE 72; TEMP 97.9
== END 2023-12-15 15:35 | disposition home or self-care (01) ==
LOC: EC 13:01
DX: E11.649 Type 2 diabetes mellitus with hypoglycemia without coma (principal); R42 Dizziness and giddiness; Z87.891 Personal history of nicotine dependence
CPT/HCPCS: 36415; 80053; 83735; 85025; 93005; 99284

== ENCOUNTER 2024-02-10 09:00 | Day surgery (SDC) | payer MEDICARE ==
[~2024-02-10 09:00] MED LIST changes: -INSULIN LISPRO (humaLOG) 300 UNIT/3 ML VIAL SQ ONE; -INSULIN LISPRO (humaLOG) 300 UNIT/3 ML VIAL SQ SCH; +LACTATED RINGERS 1,000 ML BAG ONE; -LACTATED RINGERS 1,000 ML IV SCH; -SODIUM CHLORIDE 0.9% 1,000 ML IV SCH
--- NOTE | 2024-04-12 11:59 | P.PCN ---
Date of Procedure: 02/10/24 Procedure(s) Performed: This is an addendum to the procedure that was performed on 02/10/2024 Procedure performed colonoscopy with snare polypectomy Procedure: The scope was advanced all the way to the cecum. Careful examination was performed as the scope was gradually being withdrawn. There was a 7 mm tr ansverse colon polyp and a 5 mm sigmoid colon polyp both of which were removed by cold snare polypectomy. Scattered sigmoid diverticulosis seen.
== END 2024-02-10 10:00 | disposition home or self-care (01) ==
LOC: ORWHC2ENDO 09:00
PROVIDERS: ATTEND Internal Medicine Gastroenterology
DX: Z12.11 Encounter for screening for malignant neoplasm of colon (principal); K57.30 Diverticulosis of large intestine without perforation or abscess without bleeding; Z79.01 Long term (current) use of anticoagulants; Z79.899 Other long term (current) drug therapy
CPT/HCPCS: 45385

== ENCOUNTER → 2024-04-25 | Outpatient (CLI) | payer MEDICARE ==
[2024-04-25 15:28] LABS: Appearance,Urine Clear (Clear); Bilirubin,Urine Negative (Negative); Blood,Urine Negative (Negative); Color,Urine Yellow (Yellow); Ketones,Urine Negative (Negative); Nitrite,Urine Negative (Negative); PH, Urine 5.5; Specific Gravity,Urine 1.025 (1.001-1.030); Urobilinogen,Urine 0.2 E.U./DL
[2024-04-25 16:06] LABS: Basophils # (A) 0.08 X 10*3/uL (0.00-0.10); Basophils % (A) 0.7 %; Eosinophils % (A) 3.5 %; HCT 47.7 % (39.6-50.0); HGB 15.1 g/dL (13.0-17.0); Lymphocytes # (A) 2.66 X 10*3/uL (0.90-5.00); Lymphocytes % (A) 23.4 %; MCH 29.6 pg (27.0-32.0); MCHC 31.7 g/dL (32.0-37.0); MCV 93.5 FL (80.0-97.0); Mean Platelet Volume 9.9 FL (9.5-12.2); Monocytes # (A) 0.77 X 10*3/uL (0.20-1.00); Monocytes % (A) 6.8 %; NRBC Per 100 WBC 0 X 10*3/uL (0.00-0.01); Neutrophils % (A) 65.1 %; Platelet Count 270 X 10*3/uL (140-440); RDW 14.8 % (11.5-14.5); WBC 11.37 X 10*3/uL (4.50-10.00)
[2024-04-25 20:49] LABS: Microalbumin Creatinine Ratio <14 mg/g Cr (0-30); Urine Creatinine 87.8 mg/dL (39.0-259.0)
[2024-04-25 21:07] LABS: ALT 17 U/L (10-49); AST 16 U/L (14-35); Albumin 4.1 g/dL (3.8-4.9); Albumin/Globulin Ratio 1.95 Ratio (1.60-3.17); Alkaline Phosphatase 93 U/L (41-126); Blood Urea Nitrogen 19.1 mg/dL (9.0-27.0); Carbon Dioxide 15.9 mmol/L (21.6-31.8); Chloride 105 mmol/L (96-109); Chol/HDL Ratio 3.06 Ratio; Creatine Kinase 104 U/L (35-257); Globulin 2.1 g/dL (1.6-3.3); Glucose 106 mg/dL (70-110); LDL Cholesterol,Calculated 61.8 mg/dL (0.0-131.0); Magnesium 2.1 mg/dL (1.5-2.4); Potassium 4.8 mmol/L (3.5-5.5); Prostate Specific Antigen 0.09 ng/mL (0.000-6.500); Sodium 142 mmol/L (135-145); Total Bilirubin 0.4 mg/dL (0.3-1.2); Total Protein 6.2 g/dL (6.2-8.2); Uric Acid 5.4 mg/dL (3.7-8.7)
== END | disposition home or self-care (01) ==
LOC: LABWHC1 09:30
PROVIDERS: ATTEND Internal Medicine
CPT/HCPCS: 36415; 80053; 80061; 81003; 82043; 82306; 82550; 82570; 83036; 83735; 84153; 84550; 85025

== ENCOUNTER 2024-10-13 12:44 | Emergency (ER) | payer MEDICARE ==
--- NOTE | 2024-10-13 13:27 | ED ---
Wound/Laceration HPI - General Chief Complaint: Wound/Laceration Stated Complaint: R leg laceration Time Seen by Provider: 10/13/24 12:58 Source: patient, RN notes reviewed Mode of arrival: EMS Limitations: no limitations - History of Present Illness Initial Comments: This is a 69-year-old male presenting via EMS for right foot injury/laceration. Patient endorses striking the inner aspect of his right heel/ankle on an object becoming causing significant bleeding" squirting blood". Denies difficulty ambulating. Patient states tetanus vaccination is up-to-date. Endorses use of Eliquis. Onset/Timin -: hour(s) Extremity Location: Right: Ankle Patient Tetanus UTD: Yes Context: accidental Treatments Prior to Arrival: bandage - Related Data Home Medications Medication Instructions Recorded Confirmed metFORMIN HCL [Glucophage] 1,000 mg PO BID 10/18/16 11/26/23 Aspirin EC [Ecotrin Low Dose] 81 mg PO DAILY 02/26/17 11/26/23 Ascorbic Acid [Vitamin C] 1,000 mg PO DAILY 07/17/21 11/26/23 Atorvastatin [Lipitor] 80 mg PO DAILY 07/17/21 11/26/23 Cholecalciferol [Vitamin D3 (25 50 mcg PO DAILY 07/17/21 11/26/23 Mcg = 1000 Iu)] Ezetimibe [Zetia] 10 mg PO DAILY 07/17/21 11/26/23 Insulin Glargine (Lantus) [Lantus 50 - 60 unit SQ BID 07/17/21 11/26/23 Vial] Empagliflozin [Jardiance] 25 mg PO DAILY 09/08/21 11/26/23 Amiodarone [Cordarone] 100 mg PO MOWEFR 08/26/22 11/26/23 Dulaglutide [Trulicity] 4.5 mg SQ MARCOS 06/02/23 11/24/23 Spironolactone [Aldactone] 25 mg PO DAILY 06/02/23 11/26/23 Valsartan [Diovan] 160 mg PO BID 06/02/23 11/26/23 carvediloL [Coreg] 12.5 mg PO BID 06/02/23 11/26/23 Furosemide [Lasix] 40 mg PO BID 11/24/23 11/26/23 Loratadine [Claritin] 10 mg PO DAILY 11/24/23 11/24/23 Previous Rx's Medication Instructions Recorded Apixaban [Eliquis] 5 mg PO BID #60 tab 10/24/16 Cephalexin [Keflex] 500 mg PO Q6HR 1 Days #12 cap 10/13/24 Allergies Allergy/AdvReac Type Severity Reaction Status Date / Time No Known Allergies Allergy Verified 10/13/24 12:50 Review of Systems ROS Statement: Those systems with pertinent positive or pertinent negative responses have been documented in the HPI. ROS Other: All systems not noted in ROS Statement are negative. Past Medical History Past Medical History: Atrial Fibrillation, Heart Failure, COPD, Diabetes Mellitus, Hyperlipidemia, Hypertension, Osteoarthritis (OA), Sleep Apnea/CPAP /BIPAP Additional Past Medical History / Comment(s): edema and discoloration to RLE since 2002 per pt, See Dr House H&P for cardiac history. wears cpap. SOB History of Any Multi-Drug Resistant Organisms: None Reported Past Surgical History: Appendectomy, Cardiac Ablation, Heart Catheterization, Heart Catheterization With Stent, Tonsillectomy Additional Past Surgical History / Comment(s): "Heart cath done for ablation" Past Anesthesia/Blood Transfusion Reactions: No Reported Reaction Additional Past Anesthesia/Blood Transfusion Reaction / Comment(s): grumpy after surgery Date of Last Stent Placement:: 2019 Past Psychological History: No Psychological Hx Reported Smoking Status: Former smoker Past Alcohol Use History: None Reported Past Drug Use History: None Reported - Past Family History Mother Family Medical History: Blood Disorder Father Family Medical History: Myocardial Infarction (MA) General Exam Limitations: no limitations General appearance: alert, in no apparent distress Head exam: Present: atraumatic, normocephalic, normal inspection Eye exam: Present: normal appearance, PERRL, EOMI. Absent: scleral icterus, conjunctival injection, periorbital swelling ENT exam: Present: normal exam, mucous membranes moist Neck exam: Present: normal inspection. Absent: tenderness, meningismus, lymphadenopathy Respiratory exam: Present: normal lung sounds bilaterally. Absent: respiratory distress, wheezes, rales, rhonchi, stridor Cardiovascular Exam: Present: regular rate, normal rhythm, normal heart sounds. Absent: systolic murmur, diastolic murmur, rubs, gallop, clicks GI/Abdominal exam: Present: soft, normal bowel sounds. Absent: distended, tenderness, guarding, rebound, rigid Extremities exam: Present: normal inspection, full ROM, normal capillary refill. Absent: tenderness, pedal edema, joint swelling, calf tenderness Back exam: Present: normal inspection Neurological exam: Present: alert, oriented X3, CN II-XII intact Psychiatric exam: Present: normal affect, normal mood Skin exam: Present: warm, dry, intact, normal color, other (+1 cm shallow laceration noted on medial aspect of right ankle without foreign body, surrounding erythema, significant bleeding.). Absent: rash Course Vital Signs 10/13/24 10/13/24 12:46 16:35 Temperature 97.8 F 98 F Pulse Rate 81 80 Respiratory 20 18 Rate Blood Pressure 127/76 124/86 O2 Sat by Pulse 99 98 Oximetry Medical Decision Making - Medical Decision Making Was pt. sent in by a medical professional or institution (, PA, LABORER/GRADE CHECK, urgent care, hospital, or shelter...) When possible be specific @ -No Did you speak to anyone other than the patient for history (EMS, parent, family, police, friend...)? What history was obtained from this source @ -No Did you review nursing and triage notes (agree or disagree)? Why? @ -I reviewed and agree with nursing and triage notes Were old charts reviewed (outside hosp., previous admission, EMS record, old EKG, old radiological studies, urgent care reports/EKG's, shelter records)? Report findings @ -No old charts were reviewed Differential Diagnosis (chest pain, altered mental status, abdominal pain women, abdominal pain men, vaginal bleeding, weakness, fever, dyspnea, syncope, headache, dizziness, GI bleed, back pain, seizure, CVA, palpatations, mental health, musculoskeletal)? @ -Differential Musculoskeletal Muscular strain, contusion, ligament sprain, fracture, arthritis, septic arthritis, bursitis, cellulitis, muscle spasm, nerve compression, DVT, arterial occlusion, herpes zoster, electrolyte abnormality, tumor.... This is not meant to be in all inclusive list EKG interpreted by me (3pts min.). @ -Not done X-rays interpreted by me (1pt min.). @ -None done CT interpreted by me (1pt min.). @ -None done U/S interpreted by me (1pt. min.). @ -None done What testing was considered but not performed or refused? (CT, X-rays, U/S, labs)? Why? @ -None What meds were considered but not given or refused? Why? @ -None Did you discuss the management of the patient with other professionals (professionals i.e. , PA, LABORER/GRADE CHECK, lab, RT, psych nurse, social sciences research scientist, cloth cutting inspector, teacher, chief school finance officer, case checker)? Give summary @ -No Was smoking cessation discussed for >3mins.? @ -No Was critical care preformed (if so, how long)? @ -No Were there social determinants of health that impacted care today? How? (Homelessness, low income, unemployed, alcoholism, drug addiction, transportation, low edu. Level, literacy, decrease access to med. care, long-term, rehab)? @ -No Was there de-escalation of care discussed even if they declined (Discuss DNR or withdrawal of care, Hospice)? DNR status @ -No What co-morbidities impacted this encounter? (DM, HTN, Smoking, COPD, CAD, Cancer, CVA, ARF, Chemo, Hep., AIDS, mental health diagnosis, sleep apnea, morbid obesity)? @ -None Was patient admitted / discharged? Hospital course, mention meds given and route, prescriptions, significant lab abnormalities, going to OR and other pertinent info. @ -Wound irrigation and new dressing applied to laceration. Prophylactic Keflex sent to patient's pharmacy. Advised follow-up with PCP if symptoms should not improve or worsen. Discussed patient with Dr. Britton. Undiagnosed new problem with uncertain prognosis? @ -No Drug Therapy requiring intensive monitoring for toxicity (Heparin, Nitro, Insuli n, Cardizem)? @ -No Were any procedures done? @ -Laceration irrigated copiously with sterile water. Pressure dressing applied with cessation of bleeding. Diagnosis/symptom? @ -Ankle laceration with bleeding Acute, or Chronic, or Acute on Chronic? @ -Acute Uncomplicated (without systemic symptoms) or Complicated (systemic symptoms)? @ -Uncomplicated Side effects of treatment? @ -No Exacerbation, Progression, or Severe Exacerbation? @ -No Poses a threat to life or bodily function? How? (Chest pain, [place], MA, pneumonia, PE, COPD, DKA, ARF, appy, cholecystitis, CVA, Diverticulitis, Homicidal, Suic idal, threat to staff... and all critical care pts) @ -No Disposition Clinical Impression: Laceration Disposition: HOME SELF-CARE Condition: Good Instructions (If sedation given, give patient instructions): Acute Wound Care (ED) Additional Instructions: Keep area clean with antibacterial soap and water at least twice daily with dressing change. Follow-up with PCP as needed. Prescriptions: Cephalexin [Keflex] 500 mg PO Q6HR 1 Days #12 cap Is patient prescribed a controlled substance at d/c from ED?: No Referrals: Alana Mariano MD [Primary Care Provider] - 1-2 days Time of Disposition: 15:57
[2024-10-13 16:37] VITALS: BP 124/86; PULSE 80; RESP 18; TEMP 98
== END 2024-10-13 16:37 | disposition home or self-care (01) ==
LOC: EC 12:44
DX: S91.311A Laceration without foreign body, right foot, initial encounter (principal); Z87.891 Personal history of nicotine dependence; W22.8XXA Striking against or struck by other objects, initial encounter
CPT/HCPCS: 99283